=== PATIENT | female | born 1955 | race African-American/Black ===

== ENCOUNTER 2017-01-13 08:11 | Day surgery (SDC) | payer OTHER ==
[2017-01-13] MEDS ORDERED: Sodium Chloride 0.9% 20 ML ONE (08:47)
[2017-01-13] MEDS ORDERED: Acetaminophen 500 MG TAB PO SCH (09:00)
[2017-01-13] MEDS ORDERED: diphenhydrAMINE 25 MG CAP PO SCH (09:00)
[2017-01-13] MEDS ORDERED: ADMIXTURE FEE IVPB SCH (09:15)
[2017-01-13] MEDS ORDERED: INFLIXIMAB IVPB SCH (09:15)
[2017-01-13] MEDS ORDERED: SODIUM CHLORIDE IVPB SCH (09:15)
[2017-01-13 09:37] VITALS: BP 139/94
== END 2017-01-13 12:22 | disposition home or self-care (01) ==
LOC: ONC/OP 08:11
PROVIDERS: ATTEND Internal Medicine Gastroenterology
DX: K50.90 Crohn's disease, unspecified, without complications (principal); I11.0 Hypertensive heart disease with heart failure; I50.32 Chronic diastolic (congestive) heart failure; I25.10 Atherosclerotic heart disease of native coronary artery without angina pectoris; E11.40 Type 2 diabetes mellitus with diabetic neuropathy, unspecified; F31.9 Bipolar disorder, unspecified; E78.5 Hyperlipidemia, unspecified; F17.210 Nicotine dependence, cigarettes, uncomplicated; Z79.4 Long term (current) use of insulin; Z79.899 Other long term (current) drug therapy; Z90.49 Acquired absence of other specified parts of digestive tract; Z90.710 Acquired absence of both cervix and uterus; Z98.890 Other specified postprocedural states; Z86.73 Personal history of transient ischemic attack (TIA), and cerebral infarction without residual deficits; Z81.8 Family history of other mental and behavioral disorders
CPT/HCPCS: 96413; 96415; A4216; J1642; J1745; J7050

== ENCOUNTER 2017-03-10 08:49 | Day surgery (SDC) | payer OTHER ==
[2017-03-10] MEDS ORDERED: Sodium Chloride 0.9% 20 ML ONE (09:04)
[2017-03-10] MEDS ORDERED: diphenhydrAMINE 25 MG CAP PO SCH (10:00)
[2017-03-10] MEDS ORDERED: Acetaminophen 500 MG TAB PO SCH (10:00)
[2017-03-10] MEDS ORDERED: SODIUM CHLORIDE 0.9% IVPB SCH ×3 (10:15→10:30)
[2017-03-10] MEDS ORDERED: INFLIXIMAB IVPB SCH ×3 (10:15→10:30)
[2017-03-10 11:06] VITALS: BP 125/82; TEMP 97.8
== END 2017-03-10 13:37 | disposition home or self-care (01) ==
LOC: ONC/OP 08:49
PROVIDERS: ATTEND Internal Medicine Gastroenterology
DX: K51.90 Ulcerative colitis, unspecified, without complications (principal); I11.0 Hypertensive heart disease with heart failure; I50.30 Unspecified diastolic (congestive) heart failure; F31.9 Bipolar disorder, unspecified; E11.9 Type 2 diabetes mellitus without complications; E78.5 Hyperlipidemia, unspecified; Z79.4 Long term (current) use of insulin
CPT/HCPCS: 96413; 96415; A4216; J1642; J1745; J7050

== ENCOUNTER 2017-05-12 08:09 | Day surgery (SDC) | payer OTHER ==
[2017-05-12] MEDS ORDERED: Sodium Chloride 0.9% 1,000 ML IV SCH (08:30)
[2017-05-12] MEDS ORDERED: Acetaminophen 500 MG TAB PO PRN (08:37)
[2017-05-12] MEDS ORDERED: diphenhydrAMINE 50 MG/ML VIAL IVPB PRN (08:37)
[2017-05-12] MEDS ORDERED: INFLIXIMAB-DYYB 800 MG in Sodium Chloride 0.9% 250 ML 250 ML IV SCH (08:45)
[2017-05-12] MEDS ORDERED: diphenhydrAMINE 25 MG CAP PO SCH (08:45)
[2017-05-12] MEDS ORDERED: PRE FILLED IVPB SCH (08:45)
[2017-05-12] MEDS ORDERED: diphenhydrAMINE 50 MG/ML VIAL IVP SCH (08:45)
[2017-05-12] MEDS ORDERED: ACETAMINOPHEN IVPB SCH (08:45)
[2017-05-12] MEDS ORDERED: SODIUM CHLORIDE 0.9% IV SCH (09:00)
[2017-05-12] MEDS ORDERED: INFLIXIMAB DYYB IV SCH (09:00)
[2017-05-12] MEDS ORDERED: Sodium Chloride 0.9% 20 ML ONE (09:01)
[2017-05-12 09:39] VITALS: BP 133/79; TEMP 98.9
== END 2017-05-12 12:38 | disposition home or self-care (01) ==
LOC: ONC/OP 08:09
PROVIDERS: ATTEND Internal Medicine Gastroenterology
DX: K50.90 Crohn's disease, unspecified, without complications (principal); E78.5 Hyperlipidemia, unspecified; I11.0 Hypertensive heart disease with heart failure; I50.32 Chronic diastolic (congestive) heart failure; I25.10 Atherosclerotic heart disease of native coronary artery without angina pectoris; E11.40 Type 2 diabetes mellitus with diabetic neuropathy, unspecified; Z79.4 Long term (current) use of insulin; Z79.899 Other long term (current) drug therapy; Z86.73 Personal history of transient ischemic attack (TIA), and cerebral infarction without residual deficits
CPT/HCPCS: 96413; 96415; A4216; J1642; J1745; J7050

== ENCOUNTER 2017-06-25 06:40 | Outpatient (CLI) | payer OTHER | END 2017-06-25 06:41 | disposition home or self-care (01) | LOC: BICULT 06:40 | PROVIDERS: ATTEND Family Medicine | DX: M79.604 Pain in right leg (principal) ==

== ENCOUNTER 2017-06-29 15:51 | Outpatient (CLI) | payer OTHER | END 2017-06-29 15:52 | disposition home or self-care (01) | LOC: BICRAD 15:51 | PROVIDERS: ATTEND Family Medicine | DX: K59.09 Other constipation (principal); K59.8 Other specified functional intestinal disorders; I51.7 Cardiomegaly | CPT/HCPCS: 74019 ==

== ENCOUNTER 2017-06-29 21:45 | Emergency (ER) | payer OTHER | END 2017-06-29 23:29 | disposition left against medical advice (07) | LOC: ERS 21:45 | DX: Z53.21 Procedure and treatment not carried out due to patient leaving prior to being seen by health care provider (principal) ==

== ENCOUNTER 2017-07-07 08:32 | Day surgery (SDC) | payer OTHER ==
[2017-07-07] MEDS ORDERED: Sodium Chloride 0.9% 40 ML ONE (08:46)
[2017-07-07] MEDS ORDERED: diphenhydrAMINE 50 MG/ML VIAL IVP PRN (09:08)
[2017-07-07] MEDS ORDERED: Acetaminophen 500 MG TAB PO PRN (09:08)
[2017-07-07] MEDS ORDERED: INFLIXIMAB DYYB IVPB SCH ×2 (09:15→09:30)
[2017-07-07] MEDS ORDERED: Acetaminophen 500 MG TAB PO SCH (09:15)
[2017-07-07] MEDS ORDERED: diphenhydrAMINE 50 MG/ML VIAL IVP SCH (09:15)
[2017-07-07] MEDS ORDERED: ADMIXTURE FEE IVPB SCH ×2 (09:15→09:30)
[2017-07-07] MEDS ORDERED: diphenhydrAMINE 25 MG CAP PO SCH (09:15)
[2017-07-07] MEDS ORDERED: SODIUM CHLORIDE IVPB SCH ×2 (09:15→09:30)
[2017-07-07] MEDS ORDERED: Sodium Chloride 0.9% 1,000 ML IV SCH (09:15)
[2017-07-07] MEDS ORDERED: INFLIXIMAB DYYB IV SCH (09:30)
[2017-07-07] MEDS ORDERED: SODIUM CHLORIDE 0.9% IV SCH (09:30)
[2017-07-07 09:34] VITALS: BP 153/96; TEMP 99
== END 2017-07-07 13:37 | disposition home or self-care (01) ==
LOC: ONC/OP 08:32
PROVIDERS: ATTEND Internal Medicine Gastroenterology
DX: K50.90 Crohn's disease, unspecified, without complications (principal); E78.5 Hyperlipidemia, unspecified; I11.0 Hypertensive heart disease with heart failure; I50.32 Chronic diastolic (congestive) heart failure; I25.10 Atherosclerotic heart disease of native coronary artery without angina pectoris; E11.40 Type 2 diabetes mellitus with diabetic neuropathy, unspecified; Z79.4 Long term (current) use of insulin; Z79.899 Other long term (current) drug therapy; Z86.73 Personal history of transient ischemic attack (TIA), and cerebral infarction without residual deficits
CPT/HCPCS: 96413; 96415; A4216; J1642; J7050; Q5103

== ENCOUNTER 2017-07-08 16:29 | Day surgery (SDC) | payer OTHER ==
[2017-07-07 13:44] VITALS: BMI 37.6
[~2017-07-08 16:29] MED LIST: Dexamethasone 20 MG/5 ML VIAL ONE; Lidocaine 1% PF 5 ML VIAL ONE; PROPOFOL 200 MG/20 ML VIAL ONE
[2017-07-08 17:28] LABS: #Basophils 0.1 thou/uL (0.0-0.2); #Eosinphils 0.2 thou/uL (0.0-0.7); #Monocytes 0.6 thou/uL (0.11-0.59); #Neutrophils 1.9 thou/uL (1.40-6.50); %Basophils 1.6 % (0.0-1.0); %Eosinophils 4.2 % (0.0-10.0); %Lymphocytes 41.7 % (21.0-51.0); %Monocytes 12.3 % (0.0-10.0); %Neutrophils 40.2 % (42.0-75.0); Mean Corpuscular HGB CONC 33.3 g/dL (32.0-36.0); Mean Corpuscular Hemoglobin 29.9 pg (27.0-31.0); Mean Corpuscular Volume 89.8 fl (81.0-99.0); Mean Platelet Volume 7.2 fL (7.4-10.4); Platelet Count 286 thou/uL (130-400); RBC Distribution Width 15.3 % (11.5-14.5); Red Blood Cell (RBC) Count 4.02 mill/uL (4.20-5.40); White Blood Cell (WBC) Count 4.7 thou/uL (4.8-10.8)
[2017-07-08 17:46] LABS: Anion Gap 11 mmol/L (10-20); BUN (Urea Nitrogen) 33 mg/dL (9.8-20.1); Calc. Creatinine Clearance 47 mL/min (70-130); Calcium 9.1 mg/dL (7.8-10.44); Carbon Dioxide 24 mmol/L (23-31); Chloride 107 mmol/L (98-107); Estimated GFR-MDRD 34; Glucose 89 mg/dL (80-115); Potassium 4.1 mmol/L (3.5-5.1); Sodium 138 mmol/L (136-145)
[2017-07-08] MEDS ORDERED: Thrombin 5000 UNITS/5 ML VIAL ONE (19:16)
[2017-07-08] MEDS ORDERED: Sodium Chloride 0.9% 0 ML ONE (19:16)
[2017-07-08] MEDS ORDERED: Bupivacaine PF 0.5% 30 ML VIAL ONE (19:16)
[2017-07-08] MEDS ORDERED: Lidocaine 1% (PF) 30 ML VIAL ONE (19:16)
[2017-07-08] MEDS ORDERED: Bacitracin Zinc Ointment 30 gm TUBE ONE (19:16)
[2017-07-08] MEDS ORDERED: Fentanyl 100 MCG/2 ML VIAL ONE ×2 (20:26→21:42)
[2017-07-08] MEDS ORDERED: Vancomycin HCl 1.5 GM in Sodium Chloride 0.9% 250 ML 300 ML IVPB SCH (20:45)
[2017-07-08] MEDS ORDERED: Heparin 10,000 UNITS/ 10 ML VIAL ONE (22:02)
--- NOTE | 2017-07-09 04:36 | OP ---
DATE OF PROCEDURE: 07/08/2017 PREOPERATIVE DIAGNOSES: 1. Mass with abscess in right long finger . 2. Right ulnar aspect ingrown nail. 3. Mass with abscess in right long finger. 4. No gross evidence of bony infection. PROCEDURES PERFORMED: 1. Nail removal. 2. Bone biopsy ulnar aspect distal phalanx underneath the mass and in the midst of some mucopurulent fat. 3. Mass excision with drainage (keratotic 5 x 2 mm mass just ulnar to the paronychial region). SPECIMENS REMOVED: 1. Bone biopsy for culture. 2. Mass with underlying infection for specimen. 3. Fat, subcutaneous pulp mucous area, right long finger for culture. BLOOD LOSS: 5 mL. TOURNIQUET TIME: 12 minutes. INDICATION: The patient with subcutaneous over 1 month nail pain with a hypertrophic keratotic lesio n 5 x 2 mm, underneath this some fluctuance and some edema around her nail bed area. Not responded t o any kind of treatment and the patient was able to obtain MRI, so, we felt the best method to contro l this and determine the final treatment as well as possibly be a diagnostic and therapeutic would be to do an open procedure listed above. The patient also has very brittle diabetes and multiple medic al problems. DESCRIPTION OF PROCEDURE: After successful general endotracheal anesthesia, limb was prepped and dr walden. The patient had time-out done appropriately. We gave 2 mL of 0.5% Marcaine block at metacarpo phalangeal block level in right long finger after we identified the site, side, and finger. We then inflated the tourniquet after exsanguinating the limb to 250 mmHg pressure and at the right l екатерина finger, we removed the nail. There was no purulence under the nail, but the nail itself tracked down underneath and was ingrown. We went then directly lateral to this spot on the ulnar aspect and we found the 5 mm hypertrophic area, excised this completely leaving a 4 mm wide rim of soft tissue a round the nail and then from here. Once this was removed, we dissected down to bone and found some m ucous filled fat in the pulp consistent with possible chronic infection. Deep to this, we took a bon e biopsy. We irrigated the the pulp space with 200 mL normal saline using a 10 mL syringe and a 16-gauge Angioc ath. Then, we released the tourniquet. Hemostasis was obtained. Specimen sent included now a bone biopsy for culture, mass with underlying infection that was hyperkeratotic for specimen and the subcu taneous area in right long finger for culture. The incision had been 15 mm long. We closed the 5 mm from each end and left the 5 mm area of open wo und and packed this with appropriate sterile gauze. We placed bacitracin and Adaptic over the nail b ed area, covered it with a bulky dressing, loosely applied Valeriy type and then covered this with a ba nd around the wrist, so it would not fall off. She left the operating room without evidence of anest hetic or operative complications.
--- NOTE | 2017-07-09 16:18 | EKG ---
Test Reason : STAT Blood Pressure : / mmHG Vent. Rate : 079 BPM Atrial Rate : 079 BPM P-R Int : 168 ms QRS Dur : 092 ms QT Int : 448 ms P-R-T Axes : 062 032 052 degrees QTc Int : 513 ms Normal sinus rhythm Prolonged QT Abnormal ECG Confirmed by ARCELIA GASCA ([id number]) on 07/09/2017 4:18:29 PM Referred By: BERNY Confirmed By:ARCELIA GASCA
== END 2017-07-08 23:00 | disposition home or self-care (01) ==
LOC: SDC 16:29
PROVIDERS: ATTEND Orthopaedic Surgery Hand Surgery
PROC: 0HTQXZZ Resection of Finger Nail, External Approach (ICD-10-PCS; principal; 2017-07-08)
PROC: 0PBT0ZX Excision of Right Finger Phalanx, Open Approach, Diagnostic (ICD-10-PCS; principal; 2017-07-08)
PROC: 0H9FXZZ Drainage of Right Hand Skin, External Approach (ICD-10-PCS; principal; 2017-07-08)
DX: L02.511 Cutaneous abscess of right hand (principal); L60.0 Ingrowing nail; I10 Essential (primary) hypertension; E78.5 Hyperlipidemia, unspecified; F32.9 Major depressive disorder, single episode, unspecified; K50.90 Crohn's disease, unspecified, without complications; G43.909 Migraine, unspecified, not intractable, without status migrainosus; G89.29 Other chronic pain; E11.51 Type 2 diabetes mellitus with diabetic peripheral angiopathy without gangrene; G47.33 Obstructive sleep apnea (adult) (pediatric); K21.9 Gastro-esophageal reflux disease without esophagitis; Z79.4 Long term (current) use of insulin; Z79.899 Other long term (current) drug therapy; Z87.891 Personal history of nicotine dependence
CPT/HCPCS: 80048; 85025; 85652; 87070; 87186; 87205; 88305; 93005; 93010; 96374; A4216; J1100; J1642; J1644; J2001; J2704; J3010; J3370; J3490; J7050; S0020

== ENCOUNTER 2017-08-11 18:06 | Emergency (ER) | payer OTHER ==
[2017-08-11] MEDS ORDERED: HYDROcodone/Acetaminophen 5/325 mg Tablet ONE (19:00)
--- NOTE | 2017-08-11 19:35 | RAD ---
THREE VIEWS OF THE LEFT ANKLE: 08/11/17 COMPARISON: None. HISTORY: Fall with left ankle pain and swelling. FINDINGS: Three views of the left ankle shows no evidence of acute fracture or dislocation. Moderate diffuse so ft tissue swelling is seen. No degenerative changes are present. IMPRESSION: No evidence of acute osseous abnormality. POS: [facility]
[2017-08-11] MEDS ORDERED: cloNIDine 0.1 MG TAB ONE (20:39)
--- NOTE | 2017-08-11 21:03 | RAD ---
TWO VIEWS OF THE LEFT TIBIA AND FIBULA: 08/11/17 COMPARISON: None. HISTORY: Fell in bathtub with left leg edema and pain. FINDINGS: Two views of the left tibia/fibula shows no evidence of acute fracture or dislocation. Moderate diffu se soft tissue swelling is seen. No degenerative changes are present. IMPRESSION: No evidence of acute osseous abnormality. POS: [facility]
--- NOTE | 2017-08-11 21:36 | ULT ---
LEFT LOWER EXTREMITY VENOUS ULTRASOUND 08/11/17 COMPARISON: None. HISTORY: Left lower extremity pain and edema. Left ankle pain after falling in the bathtub. TECHNIQUE: Multiplanar jerome scale and color doppler images were obtained in a left lower extremity venous ultras ound. Spectral analysis of the doppler waveforms were performed. FINDINGS: The left common femoral vein, profunda femoral vein, superficial femoral vein, and popliteal vein are normal in appearance without visible thrombus. These vessels demonstrate normal compression, flow, a nd augmentation. The left posterior tibial vein and greater saphenous vein are also patent. IMPRESSION: No evidence of left lower extremity DVT. POS: [facility]
== END 2017-08-11 21:25 | disposition home or self-care (01) ==
LOC: ERS 18:06
DX: M79.662 Pain in left lower leg (principal); I10 Essential (primary) hypertension; E11.9 Type 2 diabetes mellitus without complications; G47.30 Sleep apnea, unspecified; K21.9 Gastro-esophageal reflux disease without esophagitis; F31.9 Bipolar disorder, unspecified; F17.210 Nicotine dependence, cigarettes, uncomplicated; Z79.899 Other long term (current) drug therapy

== ENCOUNTER 2017-08-19 18:23 | Inpatient (IN) | payer OTHER ==
[2017-08-19] MEDS ORDERED: Morphine 10 MG/ML VIAL ONE (20:00)
[2017-08-19] MEDS ORDERED: Lidocaine 1% w/Epinephrine 1:100K 20 ML VIAL ONE (20:00)
--- NOTE | 2017-08-19 20:04 | ULT ---
LEFT LOWER EXTREMITY VENOUS ULTRASOUND WITH DOPPLER: 08/19/17 HISTORY: Patient fell and has had edema since then. COMPARISON: 08/11/17. TECHNIQUE: Talbot scale, color flow, doppler imaging with spectral waveform analysis performed in the left lower e xtremity venous system. FINDINGS: There is compressibility, presence of flow and augmentation in the common femoral vein, femoral vein, and popliteal vein. There is flow in the greater saphenous vein, profunda vein and posterior tibial vein. On the anterior aspect of the palmer there is a complex hypoechoic areas measuring 4.3 cm in maximum di mension which may represent fluid collection or resolving hematoma. There is no vascular flow. IMPRESSION: 1. No evidence of thrombus in the left lower extremity deep venous system. 2. Resolving hematoma versus fluid collection in the anterior left lower extremity soft tissues. POS: [facility]
[2017-08-19 20:09] LABS: #Basophils 0.1 thou/uL (0.0-0.2); #Eosinphils 0.2 thou/uL (0.0-0.7); #Lymphocytes 2.7 thou/uL (1.20-3.40); #Monocytes 0.9 thou/uL (0.11-0.59); #Neutrophils 3.9 thou/uL (1.40-6.50); %Basophils 1.1 % (0.0-1.0); %Eosinophils 2.5 % (0.0-10.0); %Lymphocytes 34.4 % (21.0-51.0); %Monocytes 11.4 % (0.0-10.0); %Neutrophils 50.6 % (42.0-75.0); Hemoglobin 11.8 g/dL (12.0-16.0); Mean Corpuscular HGB CONC 34.5 g/dL (32.0-36.0); Mean Corpuscular Hemoglobin 31.2 pg (27.0-31.0); Mean Corpuscular Volume 90.3 fl (81.0-99.0); Mean Platelet Volume 6.4 fL (7.4-10.4); Platelet Count 335 thou/uL (130-400); RBC Distribution Width 16.5 % (11.5-14.5); Red Blood Cell (RBC) Count 3.77 mill/uL (4.20-5.40); White Blood Cell (WBC) Count 7.7 thou/uL (4.8-10.8)
[2017-08-19 20:28] LABS: ALT (SGPT) 13 U/L (8-55); AST (SGOT) 27 U/L (5-34); Albumin 3.7 g/dL (3.4-4.8); Alkaline Phosphatase 174 U/L (40-150); Anion Gap 14 mmol/L (10-20); BUN (Urea Nitrogen) 16 mg/dL (9.8-20.1); Bilirubin, Total 0.2 mg/dL (0.2-1.2); CK (CPK) 459 U/L (29-168); Calc. Creatinine Clearance 0 mL/min (70-130); Calcium 8.6 mg/dL (7.8-10.44); Carbon Dioxide 25 mmol/L (23-31); Chloride 109 mmol/L (98-107); Estimated GFR-MDRD 33; Glucose 106 mg/dL (80-115); Potassium 3.1 mmol/L (3.5-5.1); Protein, Total 7.7 g/dL (6.0-8.3); Sodium 145 mmol/L (136-145)
[2017-08-19] MEDS ORDERED: hydrALAZINE 20 MG/ML VIAL ONE (20:55)
[2017-08-19 23:22] VITALS: BMI 38.2
[2017-08-20] MEDS ORDERED: hydrALAZINE 20 MG/ML VIAL SLOW IVP PRN (00:03)
[2017-08-20] MEDS: traMADol HCl 50 MG TAB PO PRN (02:10)
[2017-08-20] MEDS ORDERED: Doxepin HCl 25 MG CAP PO SCH (02:30)
[2017-08-20] MEDS ORDERED: Ondansetron HCl/PF 4 MG/2 ML Vial IVP PRN (02:33)
[2017-08-20] MEDS ORDERED: Acetaminophen 325 MG TAB PO PRN (02:33)
[2017-08-20 03:04] LABS: #Basophils 0.1 thou/uL (0.0-0.2); #Eosinphils 0.2 thou/uL (0.0-0.7); #Lymphocytes 2.2 thou/uL (1.20-3.40); #Monocytes 0.8 thou/uL (0.11-0.59); #Neutrophils 4.2 thou/uL (1.40-6.50); %Basophils 0.9 % (0.0-1.0); %Eosinophils 2.9 % (0.0-10.0); %Lymphocytes 29.7 % (21.0-51.0); %Monocytes 10.4 % (0.0-10.0); Hemoglobin 11.7 g/dL (12.0-16.0); Mean Corpuscular HGB CONC 34.2 g/dL (32.0-36.0); Mean Corpuscular Hemoglobin 31.2 pg (27.0-31.0); Mean Corpuscular Volume 91.3 fl (81.0-99.0); Mean Platelet Volume 6.8 fL (7.4-10.4); Platelet Count 341 thou/uL (130-400); RBC Distribution Width 16.8 % (11.5-14.5); Red Blood Cell (RBC) Count 3.73 mill/uL (4.20-5.40); White Blood Cell (WBC) Count 7.5 thou/uL (4.8-10.8)
[2017-08-20 03:11] LABS: Hemoglobin A1c 6.2 % (4.0-6.0)
[2017-08-20 03:33] LABS: Anion Gap 16 mmol/L (10-20); BUN (Urea Nitrogen) 14 mg/dL (9.8-20.1); Calc. Creatinine Clearance 55 mL/min (70-130); Calcium 8.6 mg/dL (7.8-10.44); Carbon Dioxide 20 mmol/L (23-31); Chloride 110 mmol/L (98-107); Estimated GFR-MDRD 40; Glucose 151 mg/dL (80-115); Sodium 143 mmol/L (136-145)
--- NOTE | 2017-08-20 04:30 | HP ---
PRIMARY CARE PHYSICIAN: Dr. Crys Andrade. CHIEF COMPLAINT: Left ankle pain. HISTORY OF PRESENT ILLNESS: This is a 61-year-old female with a known history of type 1 insulin-depe ndent diabetes, hypertension, bipolar disease, Crohn's disease on Remicade, who presents with a chief complaint of left lower foot, ankle swelling. Patient states that approximately 2 weeks ago on 07/15, she fell and "hit her foot". She subsequently had some localized swelling was seen on an out patient basis where imaging was completed and did not demonstrate any evidence of fracture. Unfortun ately, she had progressive swelling and revisited the ER with worsening complaints. Again, imaging w as repeated without any evidence of fracture. Patient denies any recent antibiotics during this time frame. Patient denies any prior similar episodes. REVIEW OF SYSTEMS: As per HPI. Constitutional: No fevers, no chills, no significant weight loss or gain in the last month. HEENT: No new headaches, vision changes, lightheadedness, or dizziness. C ardiovascular: No chest pain, chest pressure. No left-sided arm numbness or tingling. Respiratory: No wheezes, no rhonchi. No congestion or cough. Gastrointestinal: No nausea, no vomiting, no abd ominal pain, no issues with diarrhea or constipation. Genitourinary: No issues with dysuria, change in urinary frequency, quality or quantity. Musculoskeletal: No new myalgias or arthralgias. Remai nder of the review of systems otherwise negative. PAST MEDICAL AND SURGICAL HISTORY: As per HPI, includes the following, 1. Insulin-dependent diabetes. 2. Hypertension. 3. Hyperlipidemia. 4. Prior history of TIA 5. Bipolar disease and depression. 6. Crohn's disease on Remicade for last 10 years. 7. Chronic pain. 8. Peripheral vascular disease. 9. Obstructive sleep apnea. 10. Gastroesophageal reflux disease. 11. Chronic constipation. 12. Tobacco abuse. 13. Status post cholecystectomy. 14. Status post hysterectomy. 15. Status post left heart catheterization in 2011. 16. Status post cystoscopy. 17. Status post appendectomy. 18. Status post EGD. 19. Status post "small intestine blockage removal" in 2017. HOME MEDICATIONS: As per EMR, patient's home regimen appears to currently include the following: Re micade 100 mg IV q.8 weeks, lurasidone 40 mg p.o. at bedtime, Levemir 12 units subcutaneously b.i.d., lubiprostone 24 mcg p.o. b.i.d., clonidine 0.3 mg p.o. b.i.d., doxepin 100 mg p.o. at bedtime, atorv astatin 40 mg p.o. daily, brexpiprazole 2 mg p.o. daily, gabapentin 300 mg p.o. at bedtime, fluoxetin e 20 mg p.o. daily, quetiapine 400 mg p.o. at bedtime, esomeprazole 40 mg p.o. q.a.m., tramadol 50 mg p.o. q.4 hours p.r.n., losartan 100 mg p.o. daily, potassium 10 mEq p.o. daily, torsemide 100 mg p.o . daily. ALLERGIES: No known drug allergies. FAMILY HISTORY: Patient denies any family history of recurrent infections. SOCIAL HISTORY: Patient wishes to be FULL CODE at this point in time. Denies any active alcohol or illicit drug use, tobacco use, half a pack a day. Patient lives at home with family, has a "Houstonia d og" at home. She states does not have a habit of licking family members including herself. PHYSICAL EXAMINATION: GENERAL: The patient is awake, alert, appropriate, in no acute distress, lying in the hospital bed. HEENT: Normocephalic, atraumatic. Extraocular motions are intact. Moist mucous membranes. CARDIOVASCULAR: S1, S2. Soft heart tones. No murmurs, rubs, or gallops. Pulses 2+ bilateral upper extremities, trace lower extremity edema of the right lower extremity, left lower extremity with swe lling and edematous 2-3+. RESPIRATORY: Reasonable air movement. No wheezes, rales, or rhonchi. Clear to auscultation bilater ally. ABDOMEN: Positive bowel sounds. Large, obese, soft, nontender to palpation. MUSCULOSKELETAL: Able to move all 4 extremities, significant amount of swelling, erythema, and tende rness to palpation of the left lower extremity with some mild warmth as well. LABORATORY DATA AND IMAGING: On 08/19/2017, vascular ultrasound. Impression: "No evidence of throm bus in the left lower extremity deep venous system. Resolving hematoma versus fluid collection in th e anterior left lower extremity soft tissues." WBC 7.7, hemoglobin 11.8, hematocrit 34.0, platelets 335. Sodium 145, potassium 3.1, chloride 109, b icarbonate 25, BUN 16, creatinine 1.87, glucose 106, calcium 8.6. Total bilirubin 0.2, AST 27, ALT 1 3, alkaline phosphatase 174. Creatine kinase 459. CRP is 1.55. ASSESSMENT AND PLAN: A 61-year-old female who presents with left lower extremity swelling. 1. Left lower extremity swelling on physical examination by history, most consistent with cellulitis . It appears that in the emergency department, patient had an I&D done with a drainage of a foul sme lling hematoma. Hopefully, this will have cultures pending. In the meantime, given the patient's im munosuppressed state with chronic Remicade usage in her type 1 diabetes, we will cover with Zosyn and vancomycin for consideration of methicillin-resistant Staphylococcus aureus. In addition, patient a lso has zoonotic infection, specifically those cannot related a consideration. Patient currently is not having systemic inflammatory response syndrome or sepsis otherwise, we will hold off and obtainin g blood cultures. Close monitoring of the patient's infected area, there is a concern or considerati on that there is no improvement. Low threshold for imaging to rule out for abscess complication. 2. Insulin-dependent diabetes, continue patient on home regimen. Close monitoring. Anticipate eder ent could have a component of either hyper or hypoglycemia secondary to acute infection as noted abov e. We will continue with antibiotics as per above as well. 3. Bipolar disease, stable. 4. Hypertension, stable. RESTRICTIONS: 1. As tolerated. 2. Activity: As tolerated. 3. Deep venous thrombosis prophylaxis with heparin. 4. Unknown if patient has chronic renal disease, I do not see this listed. I do not see a baseline creatinine for the patient has either with elevated creatinine of 1.87. Continue to closely monitor patient's urine output and renal function with serial BMP. Thank you for asking me to care for the patient. Questions or concerns, contact me at [facility].
[2017-08-20] MEDS: Piperacillin/Tazobactam 2.25 GM in Sodium Chloride 0.9% 100 ML IVPB SCH ×3 (05:26→17:27)
[2017-08-20] MEDS ORDERED: Vancomycin HCl 1 GM in Premix Bag 1 BAG IVPB SCH (08:00)
[2017-08-20] MEDS: Potassium Chloride 10 MEQ TAB PO SCH (08:06)
[2017-08-20] MEDS: Atorvastatin Calcium 40 MG TAB PO SCH (08:06)
[2017-08-20] MEDS: FLUoxetine HCl 20 MG CAP PO SCH (08:06)
[2017-08-20] MEDS: Lubiprostone 24 MCG CAP PO SCH ×2 (08:07→16:04)
[2017-08-20] MEDS: Losartan 25 MG TAB PO SCH (08:07)
[2017-08-20] MEDS: cloNIDine 0.3 MG TAB PO SCH ×2 (08:07→21:18)
[2017-08-20] MEDS: Torsemide 100 MG TAB PO SCH (08:08)
[2017-08-20] MEDS: HYDROcodone/Acetaminophen 5/325 mg Tablet PO PRN ×2 (08:16→18:14)
[2017-08-20] MEDS: Heparin 5,000 UNITS/ML VIAL SC SCH ×3 (08:43→21:18)
[2017-08-20] MEDS: Insulin Glargine 12 UNITS in Pre-Filled Syringe 1 EACH SC SCH ×2 (08:44→20:23)
[2017-08-20] MEDS ORDERED: Non-Formulary Item 1 EACH (Levemir Flexpen [Levemir Flexpen] 12 UNIT) SC SCH (09:00)
[2017-08-20] MEDS: Morphine 4 MG/ML VIAL SLOW IVP PRN ×3 (10:36→20:21)
--- NOTE | 2017-08-20 11:47 | PDOC.PN ---
- Subjective Encounter Start Date: 08/20/17 Encounter Start Time: 11:15 Subjective: c/o pain and swelling of left leg area -: pain is worse on amb and wtg bearing -: no chest pain or sob, at bedside - Objective Resuscitation Status: Resuscitation Status FULL:Full Resuscitation MAR Reviewed: Yes Vital Signs & Weight: Vital Signs (12 hours) Temp Pulse Resp BP BP Pulse Ox 08/20/17 09:45 156/82 H 08/20/17 08:07 179/90 H 08/20/17 08:00 98.0 F 124 H 16 185/97 H 96 08/20/17 07:39 98.4 F 123 H 17 08/20/17 03:54 98.4 F 123 H 17 138/96 H 96 08/20/17 02:12 179/90 H 08/20/17 00:34 116 H 226/114 H 08/20/17 00:20 98.4 F 116 H 18 08/20/17 00:11 116 H 226/114 H Weight Weight 209 lb 3 oz I&O: 08/19/17 08/20/17 08/21/17 06:59 06:59 06:59 Intake Total 460 Output Total 500 Balance -40 Result Diagrams: 08/20/17 02:53 08/20/17 02:53 Additional Labs: Accuchecks 08/20/17 08/19/17 08:23 23:17 POC Glucose 126 H 130 H Phys Exam - Physical Examination HEENT: PERRLA, moist MMs Neck: no JVD, supple Respiratory: no wheezing, no rales Cardiovascular: RRR, no significant murmur Gastrointestinal: soft, non-tender, positive bowel sounds Musculoskeletal: pulses present left leg has erythema and edema, no drainage from I&D site, is tender Neurological: non-focal, moves all 4 limbs Psychiatric: normal affect, A&O x 3 Dx/Plan (1) Left leg cellulitis Code(s): L03.116 - CELLULITIS OF LEFT LOWER LIMB Status: Acute (2) Hypertension Code(s): I10 - ESSENTIAL (PRIMARY) HYPERTENSION Status: Chronic Qualifiers: Hypertension type: essential hypertension Qualified Code(s): I10 - Essential (primary) hypertension (3) Bipolar disorder Code(s): F31.9 - BIPOLAR DISORDER, UNSPECIFIED Status: Chronic Qualifiers: Active/Remission status: remission status unspecified Qualified Code(s): F31.9 - Bipolar disorder, unspecified Comment: Continue home medication regimen (4) CAD (coronary artery disease) Code(s): I25.10 - ATHSCL HEART DISEASE OF [place] CORONARY ARTERY W/O ANG PCTRS Status: Chronic Qualifiers: Coronary Disease-Associated Artery/Lesion type: [place] artery [place] vs. transplanted heart: [place] heart Associated angina: without angina Qualified Code(s): I25.10 - Atherosclerotic heart disease of [place] coronary artery without angina pectoris (5) Crohns disease Code(s): K50.90 - CROHN'S DISEASE, UNSPECIFIED, WITHOUT COMPLICATIONS Status: Chronic Qualifiers: Gastrointestinal tract location: unspecified location Digestive disease complication type: unspecified complication Qualified Code(s): K50.919 - Crohn 's disease, unspecified, with unspecified complications Comment: on remicaid infusion [id number] (6) DM type 2 (diabetes mellitus, type 2) Status: Chronic Qualifiers: Diabetes mellitus alf insulin use: with alf use Diabetes mellitus complication status: with kidney complications Diabetes mellitus complication detail: with chronic kidney disease Chronic kidney disease stage : stage 3 (moderate) Qualified Code(s): E11.22 - Type 2 diabetes mellitus with diabetic chronic kidney disease; N18.3 - Chronic kidney disease, stage 3 ( moderate); N18.3 - Chronic kidney disease, stage 3 (moderate); Z79.4 - penitentiary (current) use of insulin; Z79.4 - buttermaker continuous churn (current) use of insulin; Z79.4 - penitentiary (current) use of insulin; Z79.4 - buttermaker continuous churn (current) use of insulin (7) Obesity Code(s): E66.9 - OBESITY, UNSPECIFIED Status: Chronic Qualifiers: Obesity type: unspecified obesity type Obesity classification: adult class 2 (BMI 35 - 39.9) Body mass index: BMI 38.0-38.9 - Plan on vanc and zosyn -: await cultures if its taken at the time of I&D in ER? -: laci hose to left LE to reduce edema -: on cozaar, clonidine, lantus 12 u bid, lipitor, demadex -: seroquel, neurontin, doxepin and amitiza * . to ambulate as tolerated plan d/w pt and , will need 2 days of iv antibiotics to reduce erythema and edema of left leg, then oral antibiotics for home use. Pt is immunosuppressed with her being on remicaid. Review of Systems - Medications/Allergies Allergies/Adverse Reactions: Allergies Allergy/AdvReac Type Severity Reaction Status Date / Time No Known Drug Allergies Allergy Verified 08/19/17 23:42 Medications: Current Medications Acetaminophen (Tylenol) 650 mg PO Q4H PRN PRN Reason: Headache/Fever or Pain Hydrocodone Bitart/Acetaminophen ([place] 5/325) 1 tab PO Q4H PRN PRN Reason: Moderate Pain (4-6) Last Admin: 08/20/17 08:16 Dose: 1 tab Atorvastatin Calcium (Lipitor) 40 mg PO DAILY [facility] Last Admin: 08/20/17 08:06 Dose: 40 mg Clonidine (Catapres) 0.3 mg PO BID [facility] Last Admin: 08/20/17 08:07 Dose: 0.3 mg Doxepin HCl (Sinequan) 100 mg PO [facility] Fluoxetine HCl (Prozac) 20 mg PO DAILY [facility] Last Admin: 08/20/17 08:06 Dose: 20 mg Gabapentin (Neurontin) 300 mg PO [facility] Heparin Sodium (Porcine) (Heparin) 5,000 units SC TID [facility] Last Admin: 08/20/17 08:43 Dose: 5,000 units Insulin Glargine 12 units/ (Miscellaneous Medication) 0.12 mls @ 0 mls/hr SC BID [facility] PRN Reason: As Directed Last Admin: 08/20/17 08:44 Dose: 0.12 mls Piperacillin Sod/Tazobactam (Sod 2.25 gm/ Sodium Chloride) 100 mls @ 200 mls/ hr IVPB Q6HR [facility] Last Admin: 08/20/17 05:26 Dose: 100 mls Vancomycin HCl 1 gm/ Device 200 mls @ 200 mls/hr IVPB 2000 [facility] Losartan Potassium (Cozaar) 100 mg PO DAILY [facility] Last Admin: 08/20/17 08:07 Dose: 100 mg Lubiprostone (Amitiza) 24 mcg PO BID[facility] Last Admin: 08/20/17 08:07 Dose: 24 mcg Lurasidone HCl (Latuda) 40 mg PO [facility] Miscellaneous Medication (Pharmacy To Dose) 1 each IVPB ONE PRN PRN Reason: Pharmacy to dose Stop: 08/30/17 02:41 Miscellaneous Medication (Pharmacy To Dose) 1 each IVPB ONE PRN PRN Reason: Pharmacy to dose Stop: 08/30/17 02:42 Morphine Sulfate (Morphine) 2 mg SLOW IVP Q4H PRN PRN Reason: Chest Pain/BP Elevations Last Admin: 08/20/17 10:36 Dose: 2 mg Ondansetron HCl (Zofran) 4 mg IVP Q6H PRN PRN Reason: Nausea/Vomiting Pantoprazole Sodium (Protonix) 40 mg PO QAM [facility] Last Admin: 08/20/17 08:06 Dose: 40 mg Brexpiprazole [ (Rexulti] 2 Mg) 0 each PO DAILY [facility] Infliximab 100 Mg 0 each IV .[id number] [facility] Potassium Chloride (Klor-Con 10) 10 meq PO DAILY [facility] Last Admin: 08/20/17 08:06 Dose: 10 meq Quetiapine Fumarate (Seroquel) 400 mg PO HS [facility] Sodium Chloride (Flush - Normal Saline) 10 ml IVF PRN PRN PRN Reason: Saline Flush Last Admin: 08/20/17 00:34 Dose: 10 ml Torsemide (Demadex) 100 mg PO DAILY [facility] Last Admin: 08/20/17 08:08 Dose: 100 mg Tramadol HCl (Ultram) 50 mg PO Q4H PRN PRN Reason: Pain 4-6 Last Admin: 08/20/17 02:10 Dose: 50 mg
[2017-08-20] MEDS ORDERED: NIFEdipine XL 60 MG TAB PO SCH (17:15)
[2017-08-20] MEDS: Labetalol 100 MG TAB PO SCH (20:22)
[2017-08-20] MEDS: Gabapentin 300 MG CAP PO SCH (20:23)
[2017-08-20] MEDS: Vancomycin HCl 1 GM in Premix Bag 1 BAG IVPB SCH (20:23)
[2017-08-20] MEDS ORDERED: Lurasidone HCl 40 MG TABLET PO SCH (21:00)
[2017-08-20] MEDS: Doxepin HCl 25 MG CAP PO SCH (21:18)
[2017-08-21] MEDS: Piperacillin/Tazobactam 2.25 GM in Sodium Chloride 0.9% 100 ML IVPB SCH ×5 (00:02→23:34)
[2017-08-21] MEDS: Labetalol 100 MG TAB PO SCH ×2 (09:31→20:11)
[2017-08-21] MEDS: Insulin Glargine 12 UNITS in Pre-Filled Syringe 1 EACH SC SCH ×2 (09:31→20:12)
[2017-08-21] MEDS: cloNIDine 0.3 MG TAB PO SCH ×2 (09:33→20:12)
[2017-08-21] MEDS: Losartan 25 MG TAB PO SCH (09:33)
[2017-08-21] MEDS: Potassium Chloride 10 MEQ TAB PO SCH (09:33)
[2017-08-21] MEDS: FLUoxetine HCl 20 MG CAP PO SCH (09:33)
[2017-08-21] MEDS: Atorvastatin Calcium 40 MG TAB PO SCH (09:34)
[2017-08-21] MEDS: Lubiprostone 24 MCG CAP PO SCH ×2 (09:34→17:25)
[2017-08-21] MEDS: Heparin 5,000 UNITS/ML VIAL SC SCH ×3 (09:35→20:10)
[2017-08-21] MEDS: Torsemide 100 MG TAB PO SCH (09:37)
[2017-08-21] MEDS: Morphine 4 MG/ML VIAL SLOW IVP PRN ×2 (09:43→13:46)
--- NOTE | 2017-08-21 11:20 | PDOC.PN ---
- Subjective Encounter Start Date: 08/21/17 Encounter Start Time: 10:50 Subjective: pain and swelling in left leg is getting better -: slept well last night -: at bedside - Objective Resuscitation Status: Resuscitation Status FULL:Full Resuscitation MAR Reviewed: Yes Vital Signs & Weight: Vital Signs (12 hours) Temp Pulse Resp BP BP Pulse Ox 08/21/17 09:33 131/83 08/21/17 09:31 106 H 131/83 08/21/17 08:00 98.5 F 98 12 122/78 91 L Weight Admit Weight 209 lb 3 oz Weight 209 lb 3 oz I&O: 08/20/17 08/21/17 08/22/17 06:59 06:59 06:59 Intake Total 460 640 Output Total 500 Balance -40 640 Result Diagrams: 08/20/17 02:53 08/20/17 02:53 Additional Labs: Accuchecks 08/21/17 08/20/17 08/20/17 05:12 20:18 16:48 POC Glucose 129 H 139 H 150 H Phys Exam - Physical Examination HEENT: PERRLA, moist MMs Neck: no JVD, supple Respiratory: no wheezing, no rales Cardiovascular: RRR, no significant murmur Gastrointestinal: soft, non-tender, positive bowel sounds Musculoskeletal: pulses present left leg edema, erythema is receding Neurological: non-focal, moves all 4 limbs Psychiatric: normal affect, A&O x 3 Dx/Plan (1) Left leg cellulitis Code(s): L03.116 - CELLULITIS OF LEFT LOWER LIMB Status: Acute (2) Hypertension Code(s): I10 - ESSENTIAL (PRIMARY) HYPERTENSION Status: Chronic Qualifiers: Hypertension type: essential hypertension Qualified Code(s): I10 - Essential (primary) hypertension (3) Bipolar disorder Code(s): F31.9 - BIPOLAR DISORDER, UNSPECIFIED Status: Chronic Qualifiers: Active/Remission status: remission status unspecified Qualified Code(s): F31.9 - Bipolar disorder, unspecified Comment: Continue home medication regimen (4) CAD (coronary artery disease) Code(s): I25.10 - ATHSCL HEART DISEASE OF [place] CORONARY ARTERY W/O ANG PCTRS Status: Chronic Qualifiers: Coronary Disease-Associated Artery/Lesion type: [place] artery [place] vs. transplanted heart: [place] heart Associated angina: without angina Qualified Code(s): I25.10 - Atherosclerotic heart disease of [place] coronary artery without angina pectoris (5) Crohns disease Code(s): K50.90 - CROHN'S DISEASE, UNSPECIFIED, WITHOUT COMPLICATIONS Status: Chronic Qualifiers: Gastrointestinal tract location: unspecified location Digestive disease complication type: unspecified complication Qualified Code(s): K50.919 - Crohn 's disease, unspecified, with unspecified complications Comment: on remicaid infusion [id number] (6) DM type 2 (diabetes mellitus, type 2) Status: Chronic Qualifiers: Diabetes mellitus intermediate insulin use: with intermediate use Diabetes mellitus complication status: with kidney complications Diabetes mellitus complication detail: with chronic kidney disease Chronic kidney disease stage : stage 3 (moderate) Qualified Code(s): E11.22 - Type 2 diabetes mellitus with diabetic chronic kidney disease; N18.3 - Chronic kidney disease, stage 3 ( moderate); N18.3 - Chronic kidney disease, stage 3 (moderate); Z79.4 - senior living (current) use of insulin; Z79.4 - oysterman (current) use of insulin; Z79.4 - senior living (current) use of insulin; Z79.4 - oysterman (current) use of insulin (7) Obesity Code(s): E66.9 - OBESITY, UNSPECIFIED Status: Chronic Qualifiers: Obesity type: unspecified obesity type Obesity classification: adult class 2 (BMI 35 - 39.9) Body mass index: BMI 38.0-38.9 - Plan cellulitis is resolving -: on vanc and zosyn -: continue clonidine, labetalol, procardia, demadex and cozaar -: lantus 12 u bid -: to amb as tolerated, dc plan in am * . Review of Systems - Medications/Allergies Allergies/Adverse Reactions: Allergies Allergy/AdvReac Type Severity Reaction Status Date / Time No Known Drug Allergies Allergy Verified 08/19/17 23:42 Medications: Current Medications Acetaminophen (Tylenol) 650 mg PO Q4H PRN PRN Reason: Headache/Fever or Pain Hydrocodone Bitart/Acetaminophen ([place] 5/325) 1 tab PO Q4H PRN PRN Reason: Moderate Pain (4-6) Last Admin: 08/20/17 18:14 Dose: 1 tab Atorvastatin Calcium (Lipitor) 40 mg PO DAILY [facility] Last Admin: 08/21/17 09:34 Dose: 40 mg Clonidine (Catapres) 0.3 mg PO BID [facility] Last Admin: 08/21/17 09:33 Dose: 0.3 mg Doxepin HCl (Sinequan) 100 mg PO [facility] Last Admin: 08/20/17 21:18 Dose: 100 mg Fluoxetine HCl (Prozac) 20 mg PO DAILY [facility] Last Admin: 08/21/17 09:33 Dose: 20 mg Gabapentin (Neurontin) 300 mg PO HS [facility] Last Admin: 08/20/17 20:23 Dose: 300 mg Heparin Sodium (Porcine) (Heparin) 5,000 units SC TID [facility] Last Admin: 08/21/17 09:35 Dose: 5,000 units Insulin Glargine 12 units/ (Miscellaneous Medication) 0.12 mls @ 0 mls/hr SC BID [facility] PRN Reason: As Directed Last Admin: 08/21/17 09:31 Dose: 0.12 mls Piperacillin Sod/Tazobactam (Sod 2.25 gm/ Sodium Chloride) 100 mls @ 200 mls/ hr IVPB Q6HR [facility] Last Admin: 08/21/17 05:19 Dose: 100 mls Vancomycin HCl 1 gm/ Device 200 mls @ 200 mls/hr IVPB 2000 [facility] Last Admin: 08/20/17 20:23 Dose: 200 mls Labetalol HCl (Normodyne) 100 mg PO BID [facility] Last Admin: 08/21/17 09:31 Dose: 100 mg Losartan Potassium (Cozaar) 100 mg PO DAILY [facility] Last Admin: 08/21/17 09:33 Dose: 100 mg Lubiprostone (Amitiza) 24 mcg PO [facility] Last Admin: 08/21/17 09:34 Dose: 24 mcg Lurasidone HCl (Latuda) 40 mg PO [facility] Miscellaneous Medication (Pharmacy To Dose) 1 each IVPB ONE PRN PRN Reason: Pharmacy to dose Stop: 08/30/17 02:41 Miscellaneous Medication (Pharmacy To Dose) 1 each IVPB ONE PRN PRN Reason: Pharmacy to dose Stop: 08/30/17 02:42 Morphine Sulfate (Morphine) 2 mg SLOW IVP Q4H PRN PRN Reason: Chest Pain/BP Elevations Last Admin: 08/21/17 09:43 Dose: 2 mg Nifedipine (Procardia Xl) 60 mg PO DAILY [facility] Ondansetron HCl (Zofran) 4 mg IVP Q6H PRN PRN Reason: Nausea/Vomiting Pantoprazole Sodium (Protonix) 40 mg PO QAM [facility] Last Admin: 08/21/17 09:35 Dose: 40 mg Brexpiprazole [ (Rexulti] 2 Mg) 0 each PO DAILY [facility] Potassium Chloride (Klor-Con 10) 10 meq PO DAILY [facility] Last Admin: 08/21/17 09:33 Dose: 10 meq Quetiapine Fumarate (Seroquel) 400 mg PO HS [facility] Last Admin: 08/20/17 20:22 Dose: 400 mg Sodium Chloride (Flush - Normal Saline) 10 ml IVF PRN PRN PRN Reason: Saline Flush Last Admin: 08/20/17 00:34 Dose: 10 ml Torsemide (Demadex) 100 mg PO DAILY [facility] Last Admin: 08/21/17 09:37 Dose: 100 mg Tramadol HCl (Ultram) 50 mg PO Q4H PRN PRN Reason: Pain 4-6 Last Admin: 08/20/17 02:10 Dose: 50 mg
[2017-08-21] MEDS: NIFEdipine XL 60 MG TAB PO SCH (12:56)
[2017-08-21 19:41] LABS: Vancomycin, Trough 10.2 ug/mL
[2017-08-21] MEDS: HYDROcodone/Acetaminophen 5/325 mg Tablet PO PRN (20:09)
[2017-08-21] MEDS: Gabapentin 300 MG CAP PO SCH (20:10)
[2017-08-21] MEDS: Doxepin HCl 25 MG CAP PO SCH (20:11)
[2017-08-21] MEDS: Vancomycin HCl 1.25 GM in Sodium Chloride 0.9% 250 ML 250 ML IVPB SCH (20:21)
[2017-08-21] MEDS: Vancomycin HCl 1 GM in Premix Bag 1 BAG IVPB SCH (21:15)
[2017-08-21] MEDS: traMADol HCl 50 MG TAB PO PRN (21:34)
[2017-08-22] MEDS: Piperacillin/Tazobactam 2.25 GM in Sodium Chloride 0.9% 100 ML IVPB SCH ×4 (05:25→23:30)
[2017-08-22] MEDS: Lubiprostone 24 MCG CAP PO SCH ×2 (09:04→17:11)
[2017-08-22] MEDS: Losartan 25 MG TAB PO SCH (09:04)
[2017-08-22] MEDS: NIFEdipine XL 60 MG TAB PO SCH (09:04)
[2017-08-22] MEDS: Heparin 5,000 UNITS/ML VIAL SC SCH ×3 (09:05→20:55)
[2017-08-22] MEDS: Atorvastatin Calcium 40 MG TAB PO SCH (09:05)
[2017-08-22] MEDS: Labetalol 100 MG TAB PO SCH ×2 (09:05→20:53)
[2017-08-22] MEDS: cloNIDine 0.3 MG TAB PO SCH ×2 (09:05→20:55)
[2017-08-22] MEDS: FLUoxetine HCl 20 MG CAP PO SCH (09:05)
[2017-08-22] MEDS: Potassium Chloride 10 MEQ TAB PO SCH (09:05)
[2017-08-22] MEDS: Insulin Glargine 12 UNITS in Pre-Filled Syringe 1 EACH SC SCH ×2 (09:54→20:53)
[2017-08-22] MEDS: Torsemide 100 MG TAB PO SCH (09:54)
--- NOTE | 2017-08-22 11:21 | PDOC.PN ---
- Subjective Encounter Start Date: 08/22/17 Encounter Start Time: 08:40 Subjective: still has pain in left leg - Objective Resuscitation Status: Resuscitation Status FULL:Full Resuscitation MAR Reviewed: Yes Vital Signs & Weight: Vital Signs (12 hours) Temp Pulse Resp BP BP Pulse Ox 08/22/17 09:05 102 H 162/113 H 08/22/17 09:04 102 H 162/113 H 08/22/17 08:00 98.1 F 102 H 18 162/113 H 95 Weight Admit Weight 209 lb 3 oz Weight 209 lb 3 oz I&O: 08/21/17 08/22/17 08/23/17 06:59 06:59 06:59 Intake Total 640 690 Balance 640 690 Result Diagrams: 08/20/17 02:53 08/20/17 02:53 Additional Labs: Accuchecks 08/22/17 08/21/17 08/21/17 04:50 20:20 16:35 POC Glucose 115 H 131 H 156 H 08/21/17 11:19 POC Glucose 151 H Phys Exam - Physical Examination HEENT: PERRLA, moist MMs Neck: no JVD, supple Respiratory: no wheezing, no rales Cardiovascular: RRR, no significant murmur Gastrointestinal: soft, non-tender, positive bowel sounds Musculoskeletal: pulses present left leg has new blister with erythema and edema Neurological: non-focal, moves all 4 limbs Psychiatric: normal affect, A&O x 3 Dx/Plan (1) Left leg cellulitis Code(s): L03.116 - CELLULITIS OF LEFT LOWER LIMB Status: Acute (2) Hypertension Code(s): I10 - ESSENTIAL (PRIMARY) HYPERTENSION Status: Chronic Qualifiers: Hypertension type: essential hypertension Qualified Code(s): I10 - Essential (primary) hypertension (3) Bipolar disorder Code(s): F31.9 - BIPOLAR DISORDER, UNSPECIFIED Status: Chronic Qualifiers: Active/Remission status: remission status unspecified Qualified Code(s): F31.9 - Bipolar disorder, unspecified Comment: Continue home medication regimen (4) CAD (coronary artery disease) Code(s): I25.10 - ATHSCL HEART DISEASE OF [place] CORONARY ARTERY W/O ANG PCTRS Status: Chronic Qualifiers: Coronary Disease-Associated Artery/Lesion type: [place] artery [place] vs. transplanted heart: [place] heart Associated angina: without angina Qualified Code(s): I25.10 - Atherosclerotic heart disease of [place] coronary artery without angina pectoris (5) Crohns disease Code(s): K50.90 - CROHN'S DISEASE, UNSPECIFIED, WITHOUT COMPLICATIONS Status: Chronic Qualifiers: Gastrointestinal tract location: unspecified location Digestive disease complication type: unspecified complication Qualified Code(s): K50.919 - Crohn 's disease, unspecified, with unspecified complications Comment: on remicaid infusion [id number] (6) DM type 2 (diabetes mellitus, type 2) Status: Chronic Qualifiers: Diabetes mellitus termite treater helper insulin use: with [facility] use Diabetes mellitus complication status: with kidney complications Diabetes mellitus complication detail: with chronic kidney disease Chronic kidney disease stage : stage 3 (moderate) Qualified Code(s): E11.22 - Type 2 diabetes mellitus with diabetic chronic kidney disease; N18.3 - Chronic kidney disease, stage 3 ( moderate); N18.3 - Chronic kidney disease, stage 3 (moderate); Z79.4 - computer terminal operator (current) use of insulin; Z79.4 - half-way (current) use of insulin; Z79.4 - half-way (current) use of insulin; Z79.4 - half-way (current) use of insulin (7) Obesity Code(s): E66.9 - OBESITY, UNSPECIFIED Status: Chronic Qualifiers: Obesity type: unspecified obesity type Obesity classification: adult class 2 (BMI 35 - 39.9) Body mass index: BMI 38.0-38.9 - Plan is on vanc and zosyn -: wound care, to wear laci hose -: asp, lipitor, clonidine, cozaar, procardia, labetalol -: to amb as tolerated -: has new blister with tenderness, erythema and edema, needs 1-2 more days * . Review of Systems - Medications/Allergies Allergies/Adverse Reactions: Allergies Allergy/AdvReac Type Severity Reaction Status Date / Time No Known Drug Allergies Allergy Verified 08/19/17 23:42 Medications: Current Medications Acetaminophen (Tylenol) 650 mg PO Q4H PRN PRN Reason: Headache/Fever or Pain Hydrocodone Bitart/Acetaminophen ([place] 5/325) 1 tab PO Q4H PRN PRN Reason: Moderate Pain (4-6) Last Admin: 08/21/17 20:09 Dose: 1 tab Atorvastatin Calcium (Lipitor) 40 mg PO DAILY [facility] Last Admin: 08/22/17 09:05 Dose: 40 mg Clonidine (Catapres) 0.3 mg PO BID [facility] Last Admin: 08/22/17 09:05 Dose: 0.3 mg Doxepin HCl (Sinequan) 100 mg PO [facility] Last Admin: 08/21/17 20:11 Dose: 100 mg Fluoxetine HCl (Prozac) 20 mg PO DAILY [facility] Last Admin: 08/22/17 09:05 Dose: 20 mg Gabapentin (Neurontin) 300 mg PO [facility] Last Admin: 08/21/17 20:10 Dose: 300 mg Heparin Sodium (Porcine) (Heparin) 5,000 units SC TID [facility] Last Admin: 08/22/17 09:05 Dose: 5,000 units Insulin Glargine 12 units/ (Miscellaneous Medication) 0.12 mls @ 0 mls/hr SC BID [facility] PRN Reason: As Directed Last Admin: 08/22/17 09:54 Dose: 0.12 mls Piperacillin Sod/Tazobactam (Sod 2.25 gm/ Sodium Chloride) 100 mls @ 200 mls/ hr IVPB Q6HR [facility] Last Admin: 08/22/17 05:25 Dose: 100 mls Vancomycin HCl 1.25 gm/ Sodium (Chloride) 250 mls @ 166.667 mls/hr IVPB 2000 [facility] Last Admin: 08/21/17 20:21 Dose: 250 mls Labetalol HCl (Normodyne) 100 mg PO BID [facility] Last Admin: 08/22/17 09:05 Dose: 100 mg Losartan Potassium (Cozaar) 100 mg PO DAILY [facility] Last Admin: 08/22/17 09:04 Dose: 100 mg Lubiprostone (Amitiza) 24 mcg PO [facility]ID[facility] Last Admin: 08/22/17 09:04 Dose: 24 mcg Lurasidone HCl (Latuda) 40 mg PO [facility] Miscellaneous Medication (Pharmacy To Dose) 1 each IVPB ONE PRN PRN Reason: Pharmacy to dose Stop: 08/30/17 02:41 Miscellaneous Medication (Pharmacy To Dose) 1 each IVPB ONE PRN PRN Reason: Pharmacy to dose Stop: 08/30/17 02:42 Morphine Sulfate (Morphine) 2 mg SLOW IVP Q4H PRN PRN Reason: Chest Pain/BP Elevations Last Admin: 08/22/17 09:00 Dose: 2 mg Nifedipine (Procardia Xl) 60 mg PO DAILY [facility] Last Admin: 08/22/17 09:04 Dose: 60 mg Ondansetron HCl (Zofran) 4 mg IVP Q6H PRN PRN Reason: Nausea/Vomiting Pantoprazole Sodium (Protonix) 40 mg PO QAM [facility] Last Admin: 08/22/17 09:05 Dose: 40 mg Brexpiprazole [ (Rexulti] 2 Mg) 0 each PO DAILY [facility] Plecanatide [ (Trulance] 3 Mg) 0 each PO DAILY [facility] Potassium Chloride (Klor-Con 10) 10 meq PO DAILY [facility] Last Admin: 08/22/17 09:05 Dose: 10 meq Quetiapine Fumarate (Seroquel) 400 mg PO HS [facility] Last Admin: 08/21/17 20:10 Dose: 400 mg Sodium Chloride (Flush - Normal Saline) 10 ml IVF PRN PRN PRN Reason: Saline Flush Last Admin: 08/20/17 00:34 Dose: 10 ml Torsemide (Demadex) 100 mg PO DAILY [facility] Last Admin: 08/22/17 09:54 Dose: 100 mg Tramadol HCl (Ultram) 50 mg PO Q4H PRN PRN Reason: Pain 4-6 Last Admin: 08/21/17 21:34 Dose: 50 mg
[2017-08-22] MEDS: Vancomycin HCl 1.25 GM in Sodium Chloride 0.9% 250 ML 250 ML IVPB SCH (20:48)
[2017-08-22] MEDS: Doxepin HCl 25 MG CAP PO SCH (20:53)
[2017-08-22] MEDS: Gabapentin 300 MG CAP PO SCH (20:53)
[2017-08-23] MEDS: Piperacillin/Tazobactam 2.25 GM in Sodium Chloride 0.9% 100 ML IVPB SCH ×3 (05:47→16:52)
[2017-08-23 07:54] LABS: #Eosinphils 0.2 thou/uL (0.0-0.7); #Lymphocytes 1.8 thou/uL (1.20-3.40); #Monocytes 0.5 thou/uL (0.11-0.59); %Basophils 0.8 % (0.0-1.0); %Eosinophils 3.8 % (0.0-10.0); %Lymphocytes 31.8 % (21.0-51.0); %Monocytes 9.4 % (0.0-10.0); %Neutrophils 54.2 % (42.0-75.0); Hemoglobin 11.2 g/dL (12.0-16.0); Mean Corpuscular HGB CONC 33.1 g/dL (32.0-36.0); Mean Corpuscular Hemoglobin 30.1 pg (27.0-31.0); Mean Corpuscular Volume 90.9 fl (81.0-99.0); Mean Platelet Volume 6.6 fL (7.4-10.4); Platelet Count 346 thou/uL (130-400); RBC Distribution Width 16.6 % (11.5-14.5); Red Blood Cell (RBC) Count 3.73 mill/uL (4.20-5.40); White Blood Cell (WBC) Count 5.6 thou/uL (4.8-10.8)
[2017-08-23] MEDS: Losartan 25 MG TAB PO SCH (08:02)
[2017-08-23] MEDS: FLUoxetine HCl 20 MG CAP PO SCH (08:02)
[2017-08-23] MEDS: cloNIDine 0.3 MG TAB PO SCH ×2 (08:03→21:43)
[2017-08-23] MEDS: Labetalol 100 MG TAB PO SCH ×2 (08:03→21:44)
[2017-08-23] MEDS: Atorvastatin Calcium 40 MG TAB PO SCH (08:03)
[2017-08-23] MEDS: Lubiprostone 24 MCG CAP PO SCH ×2 (08:03→16:52)
[2017-08-23] MEDS: Potassium Chloride 10 MEQ TAB PO SCH (08:03)
[2017-08-23] MEDS: Insulin Glargine 12 UNITS in Pre-Filled Syringe 1 EACH SC SCH ×2 (08:04→21:43)
[2017-08-23] MEDS: NIFEdipine XL 60 MG TAB PO SCH (08:04)
[2017-08-23] MEDS: Heparin 5,000 UNITS/ML VIAL SC SCH ×3 (08:04→21:43)
[2017-08-23 08:11] LABS: Anion Gap 14 mmol/L (10-20); BUN (Urea Nitrogen) 23 mg/dL (9.8-20.1); Calc. Creatinine Clearance 54 mL/min (70-130); Calcium 8.9 mg/dL (7.8-10.44); Carbon Dioxide 25 mmol/L (23-31); Chloride 107 mmol/L (98-107); Estimated GFR-MDRD 39; Glucose 123 mg/dL (80-115); Potassium 3.9 mmol/L (3.5-5.1); Sodium 142 mmol/L (136-145)
[2017-08-23] MEDS: Plecanatide [Trulance] 3 MG PO SCH (08:13)
[2017-08-23] MEDS ORDERED: PLECANATIDE 3 MG PO SCH (09:00)
--- NOTE | 2017-08-23 11:01 | PDOC.PN ---
- Subjective Encounter Start Date: 08/23/17 Encounter Start Time: 07:35 Subjective: left leg pain and swelling is coming down -: is amb in room -: wearing laci hose on left leg - Objective Resuscitation Status: Resuscitation Status FULL:Full Resuscitation MAR Reviewed: Yes Vital Signs & Weight: Vital Signs (12 hours) Temp Pulse Resp BP BP Pulse Ox 08/23/17 08:04 99 08/23/17 08:03 99 150/98 H 08/23/17 08:00 97.5 F L 99 18 95 08/23/17 07:49 98.1 F 99 18 138/94 H 95 Weight Admit Weight 209 lb 3 oz Weight 209 lb 3 oz I&O: 08/22/17 08/23/17 08/24/17 06:59 06:59 06:59 Intake Total 690 470 240 Output Total 0 Balance 690 470 240 Result Diagrams: 08/23/17 07:43 08/23/17 07:43 Additional Labs: Accuchecks 08/23/17 08/22/17 08/22/17 05:50 21:09 16:46 POC Glucose 123 H 123 H 145 H 08/22/17 11:09 POC Glucose 198 H Phys Exam - Physical Examination HEENT: PERRLA, moist MMs Neck: no JVD, supple Respiratory: no wheezing, no rales Cardiovascular: RRR, no significant murmur Gastrointestinal: soft, non-tender, positive bowel sounds Musculoskeletal: pulses present left leg in dressing, edema is receding, mild pain to deep palp Neurological: non-focal, moves all 4 limbs Psychiatric: normal affect, A&O x 3 Dx/Plan (1) Left leg cellulitis Code(s): L03.116 - CELLULITIS OF LEFT LOWER LIMB Status: Acute Comment: s/p I&D of hematoma/abscess in ER on arrival (2) Hypertension Code(s): I10 - ESSENTIAL (PRIMARY) HYPERTENSION Status: Chronic Qualifiers: Hypertension type: essential hypertension Qualified Code(s): I10 - Essential (primary) hypertension (3) Bipolar disorder Code(s): F31.9 - BIPOLAR DISORDER, UNSPECIFIED Status: Chronic Qualifiers: Active/Remission status: remission status unspecified Qualified Code(s): F31.9 - Bipolar disorder, unspecified Comment: Continue home medication regimen (4) CAD (coronary artery disease) Code(s): I25.10 - ATHSCL HEART DISEASE OF [place] CORONARY ARTERY W/O ANG PCTRS Status: Chronic Qualifiers: Coronary Disease-Associated Artery/Lesion type: [place] artery [place] vs. transplanted heart: [place] heart Associated angina: without angina Qualified Code(s): I25.10 - Atherosclerotic heart disease of [place] coronary artery without angina pectoris (5) Crohns disease Code(s): K50.90 - CROHN'S DISEASE, UNSPECIFIED, WITHOUT COMPLICATIONS Status: Chronic Qualifiers: Gastrointestinal tract location: unspecified location Digestive disease complication type: unspecified complication Qualified Code(s): K50.919 - Crohn 's disease, unspecified, with unspecified complications Comment: on remicaid infusion [id number] (6) DM type 2 (diabetes mellitus, type 2) Status: Chronic Qualifiers: Diabetes mellitus [facility] insulin use: with [facility] use Diabetes mellitus complication status: with kidney complications Diabetes mellitus complication detail: with chronic kidney disease Chronic kidney disease stage : stage 3 (moderate) Qualified Code(s): E11.22 - Type 2 diabetes mellitus with diabetic chronic kidney disease; N18.3 - Chronic kidney disease, stage 3 ( moderate); N18.3 - Chronic kidney disease, stage 3 (moderate); Z79.4 - intermediate (current) use of insulin; Z79.4 - termite inspector (current) use of insulin; Z79.4 - termite inspector (current) use of insulin; Z79.4 - intermediate (current) use of insulin (7) Obesity Code(s): E66.9 - OBESITY, UNSPECIFIED Status: Chronic Qualifiers: Obesity type: unspecified obesity type Obesity classification: adult class 2 (BMI 35 - 39.9) Body mass index: BMI 38.0-38.9 - Plan is on procardia and labetalol with control of htn now -: on vanc and zosyn, to switch to keflex in am for 7 days, laci ewing -: lasix iv total of 3 to 4 doses to help with edema, oral demadex held -: to amb as tolerated -: may dc in am if stable * . Review of Systems - Medications/Allergies Allergies/Adverse Reactions: Allergies Allergy/AdvReac Type Severity Reaction Status Date / Time No Known Drug Allergies Allergy Verified 08/19/17 23:42 Medications: Current Medications Acetaminophen (Tylenol) 650 mg PO Q4H PRN PRN Reason: Headache/Fever or Pain Hydrocodone Bitart/Acetaminophen ([place] 5/325) 1 tab PO Q4H PRN PRN Reason: Moderate Pain (4-6) Last Admin: 08/21/17 20:09 Dose: 1 tab Atorvastatin Calcium (Lipitor) 40 mg PO DAILY [facility] Last Admin: 08/23/17 08:03 Dose: 40 mg Clonidine (Catapres) 0.3 mg PO BID [facility] Last Admin: 08/23/17 08:03 Dose: 0.3 mg Doxepin HCl (Sinequan) 100 mg PO HS [facility] Last Admin: 08/22/17 20:53 Dose: 100 mg Fluoxetine HCl (Prozac) 20 mg PO DAILY [facility] Last Admin: 08/23/17 08:02 Dose: 20 mg Furosemide (Lasix) 40 mg SLOW IVP 0600,1400 [facility] Stop: 08/25/17 06:01 Gabapentin (Neurontin) 300 mg PO [facility] Last Admin: 08/22/17 20:53 Dose: 300 mg Heparin Sodium (Porcine) (Heparin) 5,000 units SC TID [facility] Last Admin: 08/23/17 08:04 Dose: 5,000 units Insulin Glargine 12 units/ (Miscellaneous Medication) 0.12 mls @ 0 mls/hr SC BID [facility] PRN Reason: As Directed Last Admin: 08/23/17 08:04 Dose: 0.12 mls Piperacillin Sod/Tazobactam (Sod 2.25 gm/ Sodium Chloride) 100 mls @ 200 mls/ hr IVPB Q6HR [facility] Last Admin: 08/23/17 05:47 Dose: 100 mls Vancomycin HCl 1.25 gm/ Sodium (Chloride) 250 mls @ 166.667 mls/hr IVPB 2000 [facility] Last Admin: 08/22/17 20:48 Dose: 250 mls Labetalol HCl (Normodyne) 100 mg PO BID [facility] Last Admin: 08/23/17 08:03 Dose: 100 mg Losartan Potassium (Cozaar) 100 mg PO DAILY [facility] Last Admin: 08/23/17 08:02 Dose: 100 mg Lubiprostone (Amitiza) 24 mcg PO BID[facility] Last Admin: 08/23/17 08:03 Dose: 24 mcg Lurasidone HCl (Latuda) 40 mg PO [facility] Miscellaneous Medication (Pharmacy To Dose) 1 each IVPB ONE PRN PRN Reason: Pharmacy to dose Stop: 08/30/17 02:41 Miscellaneous Medication (Pharmacy To Dose) 1 each IVPB ONE PRN PRN Reason: Pharmacy to dose Stop: 08/30/17 02:42 Morphine Sulfate (Morphine) 2 mg SLOW IVP Q4H PRN PRN Reason: Chest Pain/BP Elevations Last Admin: 08/23/17 08:10 Dose: 2 mg Nifedipine (Procardia Xl) 60 mg PO DAILY [facility] Last Admin: 08/23/17 08:04 Dose: 60 mg Ondansetron HCl (Zofran) 4 mg IVP Q6H PRN PRN Reason: Nausea/Vomiting Pantoprazole Sodium (Protonix) 40 mg PO QAM [facility] Last Admin: 08/23/17 08:03 Dose: 40 mg Brexpiprazole [ (Rexulti] 2 Mg) 0 each PO DAILY [facility] Plecanatide [ (Trulance] 3 Mg) 0 each PO DAILY [facility] Last Admin: 08/23/17 08:13 Dose: 3 each Potassium Chloride (Klor-Con 10) 10 meq PO DAILY [facility] Last Admin: 08/23/17 08:03 Dose: 10 meq Quetiapine Fumarate (Seroquel) 400 mg PO HS [facility] Last Admin: 08/22/17 20:55 Dose: 400 mg Sodium Chloride (Flush - Normal Saline) 10 ml IVF PRN PRN PRN Reason: Saline Flush Last Admin: 08/20/17 00:34 Dose: 10 ml Tramadol HCl (Ultram) 50 mg PO Q4H PRN PRN Reason: Pain 4-6 Last Admin: 08/21/17 21:34 Dose: 50 mg
[2017-08-23] MEDS: Furosemide 40 MG/4 ML VIAL SLOW IVP SCH (14:36)
[2017-08-23 19:32] LABS: Vancomycin, Trough 14.6 ug/mL
[2017-08-23] MEDS: Vancomycin HCl 1.25 GM in Sodium Chloride 0.9% 250 ML 250 ML IVPB SCH (21:43)
[2017-08-23] MEDS: Doxepin HCl 25 MG CAP PO SCH (21:43)
[2017-08-23] MEDS: Gabapentin 300 MG CAP PO SCH (21:44)
[2017-08-24] MEDS: Piperacillin/Tazobactam 2.25 GM in Sodium Chloride 0.9% 100 ML IVPB SCH ×2 (00:21→05:32)
[2017-08-24 05:03] LABS: #Eosinphils 0.3 thou/uL (0.0-0.7); #Lymphocytes 2.1 thou/uL (1.20-3.40); #Monocytes 0.6 thou/uL (0.11-0.59); #Neutrophils 2.8 thou/uL (1.40-6.50); %Basophils 0.6 % (0.0-1.0); %Eosinophils 4.6 % (0.0-10.0); %Monocytes 10.2 % (0.0-10.0); %Neutrophils 48.6 % (42.0-75.0); Hemoglobin 11.7 g/dL (12.0-16.0); Mean Corpuscular HGB CONC 34.3 g/dL (32.0-36.0); Mean Corpuscular Hemoglobin 31.3 pg (27.0-31.0); Mean Corpuscular Volume 91.3 fl (81.0-99.0); Mean Platelet Volume 6.9 fL (7.4-10.4); Platelet Count 353 thou/uL (130-400); RBC Distribution Width 16.5 % (11.5-14.5); Red Blood Cell (RBC) Count 3.75 mill/uL (4.20-5.40); White Blood Cell (WBC) Count 5.7 thou/uL (4.8-10.8)
[2017-08-24 05:13] LABS: Anion Gap 14 mmol/L (10-20); BUN (Urea Nitrogen) 23 mg/dL (9.8-20.1); Calc. Creatinine Clearance 50 mL/min (70-130); Calcium 8.8 mg/dL (7.8-10.44); Carbon Dioxide 27 mmol/L (23-31); Chloride 104 mmol/L (98-107); Estimated GFR-MDRD 36; Glucose 106 mg/dL (80-115); Potassium 3.5 mmol/L (3.5-5.1); Sodium 141 mmol/L (136-145)
[2017-08-24] MEDS: Furosemide 40 MG/4 ML VIAL SLOW IVP SCH ×2 (05:31→13:09)
[2017-08-24 08:06] VITALS: BP 137/84; TEMP 98.2
[2017-08-24] MEDS: Losartan 25 MG TAB PO SCH (08:46)
[2017-08-24] MEDS: Atorvastatin Calcium 40 MG TAB PO SCH (08:47)
[2017-08-24] MEDS: Potassium Chloride 10 MEQ TAB PO SCH (08:47)
[2017-08-24] MEDS: NIFEdipine XL 60 MG TAB PO SCH (08:47)
[2017-08-24] MEDS: FLUoxetine HCl 20 MG CAP PO SCH (08:47)
[2017-08-24] MEDS: Heparin 5,000 UNITS/ML VIAL SC SCH (08:48)
[2017-08-24] MEDS: cloNIDine 0.3 MG TAB PO SCH (08:48)
[2017-08-24] MEDS: Lubiprostone 24 MCG CAP PO SCH (08:50)
[2017-08-24] MEDS: Plecanatide [Trulance] 3 MG PO SCH (08:51)
[2017-08-24] MEDS: Labetalol 100 MG TAB PO SCH (08:53)
[2017-08-24] MEDS: Insulin Glargine 12 UNITS in Pre-Filled Syringe 1 EACH SC SCH (08:53)
--- NOTE | 2017-08-24 10:24 | PDOC.PN ---
- Subjective Encounter Start Date: 08/24/17 Encounter Start Time: 11:40 Subjective: Patient feeling better. Redness resolved. New blister developed on leg, but -: clear fluid. No pus from I&D'd lesion. No purulence. - Objective Resuscitation Status: Resuscitation Status FULL:Full Resuscitation MAR Reviewed: Yes Vital Signs & Weight: Vital Signs (12 hours) Temp Pulse Resp BP BP Pulse Ox 08/24/17 08:53 92 137/84 08/24/17 08:48 137/84 08/24/17 08:47 92 137/84 08/24/17 08:00 98.2 F 92 18 137/84 94 L Weight Admit Weight 209 lb 3 oz Weight 209 lb 3 oz I&O: 08/23/17 08/24/17 08/25/17 06:59 06:59 06:59 Intake Total 470 600 Output Total 0 Balance 470 600 Result Diagrams: 08/24/17 04:30 08/24/17 04:30 Additional Labs: Accuchecks 08/24/17 08/23/17 08/23/17 04:59 20:33 16:35 POC Glucose 112 H 127 H 178 H 08/23/17 11:39 POC Glucose 120 H Phys Exam - Physical Examination Constitutional: NAD Obese HEENT: moist MMs Respiratory: no wheezing, no rales, no rhonchi, clear to auscultation bilateral Cardiovascular: RRR, no significant murmur Gastrointestinal: soft, positive bowel sounds obese trace edema, no further redness, packing in left palmer lesion with another clear blister next to it, no purulence Neurological: non-focal, moves all 4 limbs Psychiatric: normal affect, A&O x 3 Dx/Plan (1) Left leg cellulitis Code(s): L03.116 - CELLULITIS OF LEFT LOWER LIMB Status: Acute Comment: s/p I&D of hematoma in ER on arrival, non-purulent cellulitits that is resolving, will change to Keflex as low risk of MRSA without purulence. Close f/u with PCP to make sure doesn't worsen with change of abx (2) Hypertension Code(s): I10 - ESSENTIAL (PRIMARY) HYPERTENSION Status: Chronic Qualifiers: Hypertension type: essential hypertension Qualified Code(s): I10 - Essential (primary) hypertension (3) Bipolar disorder Code(s): F31.9 - BIPOLAR DISORDER, UNSPECIFIED Status: Chronic Qualifiers: Active/Remission status: remission status unspecified Qualified Code(s): F31.9 - Bipolar disorder, unspecified Comment: Continue home medication regimen (4) CAD (coronary artery disease) Code(s): I25.10 - ATHSCL HEART DISEASE OF [place] CORONARY ARTERY W/O ANG PCTRS Status: Chronic Qualifiers: Coronary Disease-Associated Artery/Lesion type: [place] artery [place] vs. transplanted heart: [place] heart Associated angina: without angina Qualified Code(s): I25.10 - Atherosclerotic heart disease of [place] coronary artery without angina pectoris (5) Crohns disease Code(s): K50.90 - CROHN'S DISEASE, UNSPECIFIED, WITHOUT COMPLICATIONS Status: Chronic Qualifiers: Gastrointestinal tract location: unspecified location Digestive disease complication type: unspecified complication Qualified Code(s): K50.919 - Crohn 's disease, unspecified, with unspecified complications Comment: on remicaid infusion [id number] (6) DM type 2 (diabetes mellitus, type 2) Status: Chronic Qualifiers: Diabetes mellitus terminal make up operator insulin use: with penitentiary use Diabetes mellitus complication status: with kidney complications Diabetes mellitus complication detail: with chronic kidney disease Chronic kidney disease stage : stage 3 (moderate) Qualified Code(s): E11.22 - Type 2 diabetes mellitus with diabetic chronic kidney disease; N18.3 - Chronic kidney disease, stage 3 ( moderate); N18.3 - Chronic kidney disease, stage 3 (moderate); Z79.4 - terminal make up operator (current) use of insulin; Z79.4 - terminal make up operator (current) use of insulin; Z79.4 - terminal make up operator (current) use of insulin; Z79.4 - group home (current) use of insulin (7) Obesity Code(s): E66.9 - OBESITY, UNSPECIFIED Status: Chronic Qualifiers: Obesity type: unspecified obesity type Obesity classification: adult class 2 (BMI 35 - 39.9) Body mass index: BMI 38.0-38.9 - Plan cont current plan of care, continue antibiotics Switching to oral Keflex today and d/c home. F/u with PCP in 2 days. * . - Discharge Day Encounter end time: 11:55
[2017-08-24] MEDS ORDERED: Milk Of Magnesia 30 ML UDCUP PO PRN (11:45)
[2017-08-24] MEDS ORDERED: Cephalexin 250 MG CAP PO SCH (21:00)
--- NOTE | 2017-08-24 23:10 | DIS ---
PRIMARY CARE PHYSICIAN: Dr. Crys Andrade. REASON FOR ADMISSION: Cellulitis. DISCHARGE DIAGNOSES: 1. Left leg cellulitis, nonpurulent, improving. 2. Hypertension. 3. Bipolar disorder. 4. Coronary artery disease. 5. Crohn's disease. 6. Diabetes mellitus type 2. 7. Obesity. PROCEDURES: Lower extremity ultrasound showing no evidence for deep vein thrombosis in the left lowe r extremity, resolving hematoma versus fluid collection in the anterior left lower leg extremity soft tissues. CONSULTATIONS: None. SUMMARY OF HOSPITAL COURSE: This is a 61-year-old female with a history of diabetes mellitus, insulin, hypertension, bipolar disorder, and Crohn's disease on Remicade, who came in with left lower foot and ankle swelling and pain going on for about 2 weeks after she hurt her foot. In the emergency room, she was noted to have swelling in the anterior left palmer. Ultrasound showed no D VT, but she did have a fluid collection with like resolving hematoma, this was lanced in the emergenc y room with no return of purulent fluid just some serous blood breakdown products. The patient was a dmitted to the hospital. Blood cultures were done. She was on broad broad-spectrum IV antibiotics, Zosyn, and vancomycin. She had some improvement in her symptoms during hospitalization. Blood cultu res came back negative. She has had small blister developed on the left anterior palmer as well, this has clear fluid. She never developed any purulent drainage The day of discharge, she was switched to Keflex twice a day orally to complete a 14-day course of an tibiotics and being discharged home. DISCHARGE MANAGEMENT: Discharged home. ACTIVITIES: As tolerated. DIET: Diabetic diet. DISCHARGE MEDICATIONS: 1. Keflex 500 mg twice a day for 9 days. 2. Tylenol with codeine #3 one tablet every 4 hours as needed for pain, 20 tablets dispensed. 3. Resume all home medications. Atorvastatin 40 mg daily. 4. Clonidine 0.3 mg twice a day. 5. Doxepin 100 mg at night. 6. Nexium 40 mg in the morning. 7. Fluoxetine 20 mg daily. 8. Gabapentin 300 mg at night. 9. Losartan 100 mg daily. 10. Amitiza 24 mcg twice a day. 11. Latuda 40 mg at night. 12. Potassium chloride 10 mEq daily. 13. Seroquel 400 mg at night. 14. Rexulti 2 mg daily. 15. Remicade 100 mg IV every 8 weeks. 16. Levemir 12 units subcu twice a day. 17. Trulance 3 mg daily. 18. Demadex 100 mg daily. FOLLOWUP: The patient will followup with primary care physician in two days for wound recheck and ma ke sure her she is to improve with switch to oral antibiotics.
== END 2017-08-24 15:54 | disposition home or self-care (01) | DRG 603 ==
LOC: ERS 18:23 → OBSVTOIN 21:00 → 2SW 21:00 → T4-B 08-20 11:08
PROVIDERS: ADMIT Internal Medicine Infectious Disease; ATTEND Internal Medicine Infectious Disease
PROC: 0H9LXZZ Drainage of Left Lower Leg Skin, External Approach (ICD-10-PCS; principal; 2017-08-19)
DX: L03.116 Cellulitis of left lower limb (principal); K50.90 Crohn's disease, unspecified, without complications; E11.51 Type 2 diabetes mellitus with diabetic peripheral angiopathy without gangrene; I16.0 Hypertensive urgency; E11.22 Type 2 diabetes mellitus with diabetic chronic kidney disease; I12.9 Hypertensive chronic kidney disease with stage 1 through stage 4 chronic kidney disease, or unspecified chronic kidney disease; N18.3 Chronic kidney disease, stage 3 (moderate); E78.5 Hyperlipidemia, unspecified; K21.9 Gastro-esophageal reflux disease without esophagitis; G47.33 Obstructive sleep apnea (adult) (pediatric); I25.10 Atherosclerotic heart disease of native coronary artery without angina pectoris; F17.210 Nicotine dependence, cigarettes, uncomplicated; F31.9 Bipolar disorder, unspecified; E66.9 Obesity, unspecified; Z68.38 Body mass index [BMI] 38.0-38.9, adult; Z79.4 Long term (current) use of insulin; Z79.899 Other long term (current) drug therapy
CPT/HCPCS: 10060; 36415; 36416; 80048; 80053; 80202; 82550; 83036; 85025; 85652; 86140; 87040; 96365; 96366; 96375; J0360; J1644; J1940; J2001; J2270; J2543; J3370; J7050

== ENCOUNTER 2017-09-01 08:32 | Day surgery (SDC) | payer OTHER ==
[2017-09-01] MEDS ORDERED: Sodium Chloride 0.9% 30 ML ONE (08:45)
[2017-09-01] MEDS ORDERED: diphenhydrAMINE 50 MG/ML VIAL IVP PRN (08:53)
[2017-09-01] MEDS ORDERED: Acetaminophen 500 MG TAB PO PRN (08:54)
[2017-09-01] MEDS ORDERED: cloNIDine 0.1 MG TAB PO PRN (08:58)
[2017-09-01] MEDS ORDERED: diphenhydrAMINE 50 MG/ML VIAL IVP SCH (09:00)
[2017-09-01] MEDS ORDERED: diphenhydrAMINE 25 MG CAP PO SCH (09:00)
[2017-09-01] MEDS ORDERED: Acetaminophen 500 MG TAB PO SCH (09:00)
[2017-09-01] MEDS ORDERED: Sodium Chloride 0.9% 1,000 ML IV SCH (09:00)
[2017-09-01] MEDS ORDERED: INFLIXIMAB-DYYB 900 MG in Sodium Chloride 0.9% 250 ML 250 ML IVPB SCH (09:00)
[2017-09-01 09:07] VITALS: BP 193/120
[2017-09-01 09:40] VITALS: TEMP 98.4
[2017-09-01] MEDS ORDERED: SODIUM CHLORIDE 0.9% IV SCH (10:30)
[2017-09-01] MEDS ORDERED: INFLIXIMAB DYYB IV SCH (10:30)
== END 2017-09-01 16:13 | disposition home or self-care (01) ==
LOC: ONC/OP 08:32
PROVIDERS: ATTEND Internal Medicine Gastroenterology
DX: K50.90 Crohn's disease, unspecified, without complications (principal)
CPT/HCPCS: 96413; 96415; A4216; J1200; J1642; J1745; J7050

== ENCOUNTER 2017-10-08 07:50 | Outpatient (CLI) | payer OTHER ==
--- NOTE | 2017-10-08 11:44 | HP ---
DATE OF SERVICE: 10/08/2017 HISTORY OF PRESENT ILLNESS: Ms. Ronda Mosqueda is a very pleasant 62-year-old who presents to the [facility]ound Center for evaluation of a wound of the left anterior lower leg subsequent to incision and ab carrillo. The patient states that after a fall while she was getting out of the tub, she developed swell ing and bruising of her left lower leg. The patient states that she was seen in Urgent Care and x-ra ys were obtained which showed no evidence of a fracture. Because of continued swelling of her left l ower leg the patient was seen in the Emergency Department here at [facility] a nd ultrasound revealed a hematoma for which the patient underwent incision and drainage. The patient was subsequently admitted to [facility] for cellulitis. At a follow up visit with Dr. Andrade, the patient was referred to the Wound Center for further evaluation and treatme nt. The patient states that she continues to have pain of her left lower leg along with continued dr ruiz from the wound of her left anterior lower leg from incision and drainage. The patient states she has been cleansing her wound with hydrogen peroxide and applying Triple Antibiotic ointment follo wed by a waterproof Band-Aid. PAST MEDICAL HISTORY: 1. Crohn's disease. 2. Hypertension. 3. Diabetes mellitus. 4. Gastroesophageal reflux disease. 5. Obstructive sleep apnea. 6. Hypothyroidism. 7. Asthma. 8. History of headaches. 9. History of "mini strokes." PAST SURGICAL HISTORY: 1. Hysterectomy/bilateral salpingo-oophorectomy. 2. Cholecystectomy. 3. Left finger surgery. 4. MediPort placement. MEDICATIONS: 1. Albuterol. 2. Remicade. 3. Amitiza. 4. Potassium chloride. 5. Clonazepam. 6. Procardia. 7. Clonidine. 8. Seroquel. 9. Doxepin. 10. Torsemide. 11. Gabapentin. 12. Vitamin B6. 13. Vitamin C. 14. Levemir. 15. Calcitriol. 16. Losartan. 17. Coreg. 18. Quetiapine 19. Fluoxetine 20. Atorvastatin. 21. Rexulti. ALLERGIES: No known diagnosed allergies. SOCIAL HISTORY: Significant for tobacco use of 1/2 pack of cigarettes per day for 12 years. The pat ient denies any history of ETOH use. FAMILY HISTORY: Significant for diabetes mellitus. The patient's mother and father were both diagno sed with diabetes mellitus. PHYSICAL EXAMINATION: VITAL SIGNS: Temperature 98.5, pulse 102, respirations 21, blood pressure 177/119. Accu-Chek 158. GENERAL: A 62-year-old female sitting on table in examination room in no acute distress. HEENT: Normocephalic, atraumatic. NECK: No nuchal rigidity. CHEST: Clear to auscultation. CARDIAC: Regular rate and rhythm. ABDOMEN: Soft. EXTREMITIES: A wound of the left anterior lower leg is present which measures approximately 0.4 x 0. 7 cm. Granulation tissue is present within the wound margins. No purulent drainage is associated wi th the wound. No erythema of the skin surrounding the wound is present. No maceration of the skin o f the periwound is noted. A dorsalis pedis pulse is easily palpable on the left. Mild to moderate e deborah of the left foot and lower leg is present on exam today. Mild to moderate edema of the right lo wer extremity is also present on today's exam. Discoloration of the skin of the right and left lower legs is present secondary to hemosiderin deposition. ASSESSMENT AND PLAN: 1. Chronic venous hypertension with ulceration. Silverlon, Webril, and 3M Coban 2-layer compression system will be applied to the wound of the left anterior lower leg today. No antibiotics will be pr escribed today based upon the appearance of the wound. I will see Ms. Mosqueda again in 1 week. The patient has been asked to keep the compression wrap applied in clinic today clean and dry, and intact until her followup visit in 1 week. The patient understands and is in agreement with the preceding treatment plan. 2. Crohn's disease. 3. Hypertension. 4. Diabetes mellitus. 5. Gastroesophageal reflux disease. 6. Hypothyroidism. 7. Asthma. 8. Obstructive sleep apnea. 9. History of headache. 10. History of "mini strokes."
== END 2017-10-08 07:51 | disposition home or self-care (01) ==
LOC: WCC 07:50
PROVIDERS: ATTEND Family Medicine
DX: I87.312 Chronic venous hypertension (idiopathic) with ulcer of left lower extremity (principal); E11.622 Type 2 diabetes mellitus with other skin ulcer; L97.929 Non-pressure chronic ulcer of unspecified part of left lower leg with unspecified severity; K50.90 Crohn's disease, unspecified, without complications; K21.9 Gastro-esophageal reflux disease without esophagitis; E03.9 Hypothyroidism, unspecified; J45.909 Unspecified asthma, uncomplicated; G47.33 Obstructive sleep apnea (adult) (pediatric); Z86.73 Personal history of transient ischemic attack (TIA), and cerebral infarction without residual deficits
CPT/HCPCS: 29581; 36416; 99203; G0463

== ENCOUNTER 2017-10-15 10:34 | Outpatient (CLI) | payer OTHER ==
--- NOTE | 2017-10-15 11:08 | PRG ---
DATE OF SERVICE: 10/15/2017 HISTORY: Ms. Ronda Mosqueda is a very pleasant 62-year-old who presents to the Wound Center for tera luation of a wound of the left anterior lower leg subsequent to incision and drainage. The patient p reviously stated that after a fall while getting out of the tub, she developed swelling and bruising of her left lower leg. The patient stated that she was seen in Urgent Care and x-rays were obtained which showed no evidence of a fracture. Because of continued swelling of her left lower leg, the pat pao was seen in the Emergency Department here at [facility] and an ultrasound revealed a hematoma for which the patient underwent incision and drainage. The patient was subseque ntly admitted to [facility] for cellulitis. At a followup visit with Dr. Floyd jones, the patient was referred to the Wound Center for further evaluation and treatment. The taz troy stated at the time of her initial presentation to the Wound Center that she continued to have pain of her left lower leg along with continued drainage from the wound of her left anterior lower leg fr om incision and drainage. After being seen in the Wound Center, Silverlon, Webril, and 3M Coban 2 la guanako compression system were applied to the left anterior lower leg wound. PHYSICAL EXAMINATION: VITAL SIGNS: Temperature 98.3, pulse 97, respirations 22, blood pressure 142/83. Accu-Chek 180. EXTREMITIES: The wound of the left anterior lower leg measures approximately 0.7 x 0.3 cm. No purul ent drainage is associated with the wound. No erythema of the skin surrounding the wound is present. No maceration of the skin of the periwound is noted. A dorsalis pedis pulse is easily palpable on the left. No significant edema of the left foot or lower leg is present on exam today. Mild to mode rate edema of the right lower extremity is present on today's exam. Discoloration of the skin of the right and left lower legs is present secondary to hemosiderin deposition. ASSESSMENT AND PLAN: 1. Chronic venous hypertension with ulceration. Silverlon, Webril, and the 3M Coban two-layer compr ession system will be applied to the wound of the left anterior lower leg today. The ulceration has almost healed completely and Ms. Mosqueda will be discharged from clinic today with followup on a p.r. n. basis. The patient has been instructed to discontinue the compression wrap in 1 week. The patien t has also been given a prescription for compression garments, knee high, open or closed toe, to yiel d a compression of 20-30 mmHg. The patient has been told that she should apply the garments each mor sudhakar and remove the garments each night. The patient and her understand and are in agreement with the preceding treatment plan. 2. Crohn's disease. 3. Hypertension. 4. Diabetes mellitus. 5. Gastroesophageal reflux disease. 6. Hypothyroidism. 7. Asthma. 8. Obstructive sleep apnea. 9. History of headaches. 10. History of "mini strokes".
[2017-10-15] MEDS ORDERED: Sodium Chloride 0.9% 15 ML NEB ONE (18:02)
== END 2017-10-15 10:35 | disposition home or self-care (01) ==
LOC: WCC 10:34
PROVIDERS: ATTEND Family Medicine
DX: I87.302 Chronic venous hypertension (idiopathic) without complications of left lower extremity (principal); K50.90 Crohn's disease, unspecified, without complications; E11.9 Type 2 diabetes mellitus without complications; K21.9 Gastro-esophageal reflux disease without esophagitis; E03.9 Hypothyroidism, unspecified; G47.33 Obstructive sleep apnea (adult) (pediatric); R51 Headache; Z86.73 Personal history of transient ischemic attack (TIA), and cerebral infarction without residual deficits; Z87.2 Personal history of diseases of the skin and subcutaneous tissue
CPT/HCPCS: 29581; A4218

== ENCOUNTER 2017-11-13 08:57 | Day surgery (SDC) | payer OTHER ==
[2017-11-13] MEDS ORDERED: Sodium Chloride 0.9% 20 ML ONE (09:09)
[2017-11-13] MEDS ORDERED: diphenhydrAMINE 50 MG/ML VIAL IVP PRN (09:43)
[2017-11-13] MEDS ORDERED: Acetaminophen 500 MG TAB PO PRN (09:44)
[2017-11-13] MEDS ORDERED: diphenhydrAMINE 25 MG CAP PO SCH (09:45)
[2017-11-13] MEDS ORDERED: Acetaminophen 500 MG TAB PO SCH (09:45)
[2017-11-13] MEDS ORDERED: diphenhydrAMINE 50 MG/ML VIAL IVP SCH (09:45)
[2017-11-13] MEDS ORDERED: Sodium Chloride 0.9% 1,000 ML IV SCH (09:45)
[2017-11-13] MEDS ORDERED: INFLIXIMAB DYYB IV SCH (10:30)
[2017-11-13] MEDS ORDERED: SODIUM CHLORIDE 0.9% IV SCH (10:30)
[2017-11-13 10:39] VITALS: BP 188/114; TEMP 98.6
== END 2017-11-13 17:20 | disposition home or self-care (01) ==
LOC: ONC/OP 08:57
PROVIDERS: ATTEND Internal Medicine Gastroenterology
DX: K50.90 Crohn's disease, unspecified, without complications (principal)
CPT/HCPCS: 99211; A4216; G0463; J1642; J1745; J7050

== ENCOUNTER 2018-01-07 11:10 | Outpatient (CLI) | payer OTHER ==
--- NOTE | 2018-01-07 12:19 | RAD ---
LEFT HIP 2 VIEWS: Date: 01/07/18 COMPARISON: None. HISTORY: Left hip pain with fall. FINDINGS: No displaced fracture or evidence of dislocation. Mild superior joint space narrowing. Mild lateral a cetabular osteophyte formation. IMPRESSION: No acute osseous abnormality. POS: RIKKI
== END 2018-01-07 11:11 | disposition home or self-care (01) ==
LOC: BICRAD 11:10
PROVIDERS: ATTEND Family Medicine
DX: M25.552 Pain in left hip (principal)

== ENCOUNTER 2018-01-22 10:42 | Day surgery (SDC) | payer OTHER ==
[2018-01-22] MEDS ORDERED: Acetaminophen 500 MG TAB PO SCH (11:30)
[2018-01-22] MEDS ORDERED: diphenhydrAMINE 25 MG CAP PO SCH (11:30)
[2018-01-22] MEDS ORDERED: Sodium Chloride 0.9% 20 ML ONE (11:35)
[2018-01-22] MEDS ORDERED: SODIUM CHLORIDE 0.9% IV SCH (12:00)
[2018-01-22] MEDS ORDERED: INFLIXIMAB DYYB IV SCH (12:00)
[2018-01-22 16:09] VITALS: BP 136/85; TEMP 97.5
== END 2018-01-22 16:15 | disposition home or self-care (01) ==
LOC: ONC/OP 10:42
PROVIDERS: ATTEND Internal Medicine Gastroenterology
DX: K50.10 Crohn's disease of large intestine without complications (principal)
CPT/HCPCS: 96413; 96415; J1642; J1745; J7050

== ENCOUNTER 2018-02-10 07:52 | Outpatient (CLI) | payer OTHER ==
--- NOTE | 2018-02-10 10:28 | CT ---
ABDOMEN AND PELVIC CT SCAN WITH IV CONTRAST: History: 62-year-old female with history of abdominal pain, low abdominal pain for three weeks. 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 Prior hysterectomy, cholecystectomy, and appendectomy and prior small bowel obstruction . Comparison: 07-12-13 FINDINGS: The lung bases appear clear. There is borderline thickening of the pericardium. Status post cholecyst ectomy. Liver, pancreas, and spleen are unremarkable. Both right and left adrenal glands are borderli ne enlarged, left sided greater than right, without focal mass. Bilateral renal cysts. Opaque pill wi thin the small bowel. No evidence for large or small bowel obstruction. Little change from 07-12-13. IMPRESSION: No significant acute process in the abdomen or pelvis. Other findings as above. POS: DEVON
[2018-02-10] MEDS ORDERED: Iopamidol 370 76% 100 ML VIAL ONE (16:44)
== END 2018-02-10 07:53 | disposition home or self-care (01) ==
LOC: BICCT 07:52
PROVIDERS: ATTEND Internal Medicine Gastroenterology
DX: K50.90 Crohn's disease, unspecified, without complications (principal); R10.84 Generalized abdominal pain; K59.09 Other constipation; R63.5 Abnormal weight gain; G89.4 Chronic pain syndrome; F31.9 Bipolar disorder, unspecified; N28.1 Cyst of kidney, acquired; K63.9 Disease of intestine, unspecified; Z90.49 Acquired absence of other specified parts of digestive tract
CPT/HCPCS: 74177

== ENCOUNTER 2018-03-18 07:04 | Inpatient (IN) | payer OTHER ==
[2018-03-18] MEDS ORDERED: Pantoprazole 40 MG VIAL ONE (07:40)
[2018-03-18] MEDS ORDERED: Ondansetron PF 4 MG/2 ML Vial ONE (07:40)
[2018-03-18] MEDS ORDERED: Dicyclomine 20 MG TAB ONE (07:40)
[2018-03-18 07:44] LABS: #Eosinphils 0.1 thou/uL (0.0-0.7); #Lymphocytes 1.5 thou/uL (1.20-3.40); #Monocytes 0.4 thou/uL (0.11-0.59); #Neutrophils 4.3 thou/uL (1.40-6.50); %Basophils 0.7 % (0.0-1.0); %Eosinophils 1.5 % (0.0-10.0); %Lymphocytes 23.9 % (21.0-51.0); %Monocytes 6.1 % (0.0-10.0); %Neutrophils 67.8 % (42.0-75.0); Hemoglobin 14.9 g/dL (12.0-16.0); Mean Corpuscular Hemoglobin 33.6 pg (27.0-31.0); Mean Platelet Volume 7.2 fL (7.4-10.4); Platelet Count 292 thou/uL (130-400); RBC Distribution Width 14.6 % (11.5-14.5); Red Blood Cell (RBC) Count 4.42 mill/uL (4.20-5.40); White Blood Cell (WBC) Count 6.3 thou/uL (4.8-10.8)
[2018-03-18 08:04] LABS: ALT (SGPT) 15 U/L (8-55); AST (SGOT) 22 U/L (5-34); Albumin 3.4 g/dL (3.4-4.8); Alkaline Phosphatase 243 U/L (40-150); Anion Gap 18 mmol/L (10-20); BUN (Urea Nitrogen) 31 mg/dL (9.8-20.1); Bilirubin, Total 0.2 mg/dL (0.2-1.2); Calc. Creatinine Clearance 0 mL/min (70-130); Calcium 9.3 mg/dL (7.8-10.44); Carbon Dioxide 22 mmol/L (23-31); Chloride 104 mmol/L (98-107); Estimated GFR-MDRD 32; Globulin 4.4 g/dL (2.4-3.5); Glucose 167 mg/dL (80-115); Lipase 499 U/L (8-78); Potassium 3.5 mmol/L (3.5-5.1); Protein, Total 7.8 g/dL (6.0-8.3); Sodium 140 mmol/L (136-145)
--- NOTE | 2018-03-18 09:21 | CT ---
CT ABDOMEN AND PELVIS: Date: 03/18/18 COMPARISON: 02/10/18. HISTORY: Right upper quadrant pain and nausea. TECHNIQUE: Axial CT imaging is obtained at 5 mm intervals from lung bases through pubic symphysis with IV contra st. Coronal reformatted imaging obtained. FINDINGS: Lack of oral contrast limits assessment of the bowel. Imaged lung bases demonstrate no acute findings. No free intraperitoneal air. Cholecystectomy clips a re present. Hypodensity is noted throughout the hepatic parenchyma, evidence of steatosis. The spleen is unremarkable, as are the adrenal glands. The pancreatic head/uncinate process is enlarged, and there is fluid adjacent to the enlarged uncinat e process and pancreatic head, including fluid insinuating between the duodenum and the pancreatic he ad. Pancreatic parenchyma demonstrates normal enhancement. No gas is noted in this region. The kidney s demonstrate no acute findings. There are multiple small hypodensities noted within the left kidney, some of which are too small to characterize, likely on the basis of multiple small cysts, similar wh en compared to the 02/10/18 examination. Uterus appears surgically absent. No evidence for bowel inflammatory change or obstruction. Scattered atherosclerotic calcification of the infrarenal abdominal aorta and its branches. No adenopathy is noted in the abdomen or pelvis, and no acute osseous abnormality is noted. Multileve l lower lumbar spine facet hypertrophic change present. IMPRESSION: Findings most consistent with acute pancreatitis involving the head and uncinate process. Correlation with pancreatic laboratory assessment advised. A degree of secondary duodenitis is suspected. Peptic ulcer disease in the proper clinical setting cannot be fully excluded. POS: DEVON
[2018-03-18] MEDS ORDERED: Fentanyl 100 MCG/2 ML VIAL ONE (09:35)
[2018-03-18 09:57] LABS: Bilirubin Negative (Negative); Blood, Urine Negative (Negative); Clarity CLEAR (Clear); Glucose, Urine (Dipstick) 250 mg/dL (Negative); Leukocyte Negative (Negative); Nitrite Negative (Negative); Protein, Urine (Dipstick) Negative (Neg-Trace); Specific Gravity, Urine 1.014 (1.002-1.036); Urobilinogen 0.2 mg/dL (0.2-1.0)
[2018-03-18] MEDS ORDERED: hydrALAZINE 20 MG/ML VIAL ONE (10:22)
[2018-03-18] MEDS ORDERED: Ondansetron ODT 4 MG TAB SL PRN (11:27)
[2018-03-18] MEDS ORDERED: Sodium Chloride 0.9% 1,000 ML IV SCH (11:27)
[2018-03-18] MEDS ORDERED: Acetaminophen 325 MG TAB PO PRN (11:27)
[2018-03-18] MEDS ORDERED: Ondansetron PF 4 MG/2 ML Vial IVP PRN (11:27)
[2018-03-18] MEDS ORDERED: Acetaminophen 650 MG Suppository PR PRN (11:30)
[2018-03-18] MEDS ORDERED: Morphine 4 MG/ML VIAL SLOW IVP PRN (11:39)
[2018-03-18 11:51] VITALS: BMI 38.2
[2018-03-18 12:47] LABS: Iron 79 ug/dL (50-170); Iron Binding Capacity, Total 304 mcg/dL (265-497)
[2018-03-18] MEDS: Morphine 4 MG/ML VIAL SLOW IVP PRN (13:48)
[2018-03-18] MEDS ORDERED: Iopamidol 370 76% 50 ML VIAL FS ONE (16:49)
[2018-03-18] MEDS ORDERED: Dextrose 5% in Water 1,000 ML IV PRN (18:18)
[2018-03-18] MEDS: Pantoprazole 40 MG VIAL IVP SCH (20:02)
[2018-03-18] MEDS: Sodium Chloride 0.9% 1,000 ML IV SCH ×2 (20:05→22:58)
--- NOTE | 2018-03-18 20:39 | HP ---
PRIMARY CARE PHYSICIAN: Dr. Andrade. GI PHYSICIAN: Dr. Mansfield. CHIEF COMPLAINT: Abdominal pain. HISTORY OF PRESENT ILLNESS: Ms. Mosqueda is a very pleasant 62-year-old lady, who reported to the emergency room this morning after she started having abdominal pain about 3:00 a.m. and reports some nausea. Denies any vomiting or diarrhea. Reports that the pain is mostly epigastric and right upper quadrant, although she does have some diffuse tenderness on palpation. The patient does report that her last bowel movement was the day before yesterday and reports that was normal. Denies any black or tarry stool. Denies any stool changes. Reports a history of prior cholecystectomy, Crohn's, ulcerative colitis, GERD, type-2 diabetes, hypertension. She has also had an appendectomy in the past. The patient underwent a CT of the abdomen and pelvis while in the emergency room and that showed findings most consistent with acute pancreatitis involving the head and uncinate process. The degree of secondary duodenitis is suspected. Peptic ulcer disease in the proper clinical setting cannot be fully excluded. The patient also had a lipase of 499, alkaline phosphatase was 243, globulin 4.4. Based on lab imaging and the patient's presentation, the patient was admitted to the observation unit for pancreatitis. The patient does report that she was diagnosed with pneumonia about 4 days ago and was started on a regimen of doxycycline, has had about 8 doses. PAST MEDICAL HISTORY: As above. Also, includes sleep apnea. Also, reports a psych history of bipolar and depression. PAST SURGICAL HISTORY: Includes abdominal surgery after a small bowel obstruction. Reports that about 6 inches of her small intestine was removed. Reports that she has had an appendectomy, cholecystectomy, hysterectomy. SOCIAL HISTORY: Denies alcohol use. Denies any drug use. Does use tobacco. Reports about a half-pack per day. Lives at home with her family. ALLERGIES: NONE. HOME MEDICATIONS: Include; 1. Lipitor 40 mg p.o. daily. 2. Rexulti 2 mg p.o. daily. 3. Catapres 0.3 mg p.o. b.i.d. 4. Doxepin 100 mg p.o. at bedtime. 5. Prilosec 40 mg p.o. daily. 6. Prozac 20 mg p.o. daily. 7. Gabapentin 300 mg p.o. at bedtime. 8. Remicade. 9. Levemir 12 units subcu b.i.d. 10. Losartan 100 mg p.o. daily. 11. Amitiza 24 mcg p.o. daily. 12. Latuda 40 mg p.o. at bedtime. 13. Trulance 3 mg p.o. daily. 14. Potassium chloride 10 mEq p.o. daily. 15. Seroquel 400 mg p.o. at bedtime. 16. Torsemide 100 mg p.o. daily. 17. Tramadol 50 mg p.o. q.4 hours as needed for pain. 18. Doxycycline 100 mg p.o. b.i.d. REVIEW OF SYSTEMS: CONSTITUTIONAL: The patient denies fevers or chills. EYES: Denies any eye redness. Denies any visual changes. ENT: Denies sore throat. Denies rhinorrhea. CARDIOVASCULAR: Denies chest pain. Denies palpitations. RESPIRATORY: Does report cough. Denies shortness of breath. GI: Reports abdominal pain primarily epigastric and right upper quadrant, and reports some nausea. Denies any vomiting, diarrhea, or constipation. : Denies dysuria. Denies . SKIN: Denies any skin changes. Denies any rash. NEUROLOGIC: Denies any focal or musculoskeletal changes. PSYCH: Denies any emotional lability. Denies hallucinations. PHYSICAL EXAMINATION: VITAL SIGNS: Blood pressure 163/107, pulse is 89, respirations are 18, O2 is 95 % on room air, temp is 98.4. CONSTITUTIONAL: The patient appears in some pain distress. Nontoxic appearing. HEENT: Head is atraumatic and normocephalic. Eyes, pupils are equally round and reactive to light. Sclerae are normal. ENT; mouth exam is normal. Mucous membranes are moist. NECK: Normal range of motion. Trachea is midline. RESPIRATORY: Breath sounds are clear. CARDIOVASCULAR: Regular rate and rhythm. Heart sounds are normal. ABDOMEN: Tender to palpation to the epigastric, central, right upper quadrant. Diffuse mild tenderness throughout the rest of the abdomen. Abdomen is soft. There is no guarding. EXTREMITIES: Upper extremities range of motion is normal. Motor strength is normal. Lower extremities range of motion is normal. Motor strength is normal. Pedal pulses are intact bilaterally. No edema is noted. NEURO: The patient is alert to person, place, and time. Speech is normal. SKIN: Warm, dry, and intact. PSYCH: Recent memory is normal. Has a normal affect. DIAGNOSTIC DATA: EKG in the ER shows normal sinus rhythm at 81 beats per minute. Conduction, ST and T-waves are normal. [place] is normal. Does have a prolonged QT. LABORATORY DATA: Pertinent labs; white blood cell count is 6.3, hemoglobin 14.9 , hematocrit 43.8, platelet count is 292. Chemistry: sodium 140, potassium 3.5, chloride 104, carbon dioxide 22, BUN is 31, creatinine is 1.93, glucose 167. Iron is 79, TIBC is 304, ferritin is 25. AST is 22, ALT is 15, alkaline phosphatase is 243. Troponin is undetectable. Albumin 3.4, globulin 4.4, lipase 499. Urine is negative except for glucose at 250. ASSESSMENT AND PLAN: 1. Pancreatitis. The patient will be kept n.p.o. for the time being. We will increase as tolerated. Nausea medications, Protonix, IV hydration will be continued. Pain medications as needed. 2. Hypertension. We will continue home medications>. 3. Diabetes. We will continue home medications. We will add a sliding scale. 4. Recent history of pneumonia. We will re-evaluate and treat accordingly. 5. DVT and GI prophylaxis will be started. Clinical course will be dependent on findings. Job ID: [id number] MTDD
--- NOTE | 2018-03-18 21:25 | PDOC.EVN ---
Event Note - Event Note Event Note: Patient was discussed with Krystina Cristobal. Patient evaluated. She continues to have some abdominal pain. She is very tender across the entire upper abdomen. She thinks she may have had pancreatitis 10 years ago. She has some duodenitis and evidence of pancreatitis on CT. Enzymes are consistent with that. Continue bowel rest, hydration and pain management . Consult GI in the setting of her Crohn's.
[2018-03-18] MEDS ORDERED: hydrALAZINE 25 MG TAB PO SCH (22:00)
[2018-03-18] MEDS ORDERED: Carvedilol 25 MG TAB PO SCH (22:00)
--- NOTE | 2018-03-18 23:13 | CON ---
DATE OF CONSULTATION: 03/18/2018 TYPE OF CONSULTATION: GI Inpatient. REQUESTING PHYSICIAN: Dr. Zarco. REASON FOR CONSULTATION: Pancreatitis. HISTORY OF PRESENT ILLNESS: Ronda Mosqueda is a 62-year-old woman, who is seen in the outpatient setting by my GI Colleague, Dr. Medardo Mansfield; he follows her for Crohn disease of the small and large intestine. Notably, the patient is known to be in remission from her Crohn disease, on Remicade infusions every 8 weeks. This is as of her last EGD and colonoscopy in April 2016. She has had some complications including intraabdominal adhesions. She had a lysis of adhesions performed in June 2016. She actually deals with chronic constipation, which Dr. Mansfield manages with Amitiza and other laxatives. She does continue to smoke cigarettes, but denies any alcohol use. She also has a significant history of diabetes, bipolar disorder, and hypertension, and her medication list is quite extensive. She is on daily acid suppression with Nexium. I also note her medication list says that she has been on doxycycline, which she started 4 days ago, but she is unsure of exactly why this was started. Ms. Mosqueda says that she had the acute onset of severe pain in the epigastrium, periumbilical area, and right upper quadrant, which started around 3 a.m. this morning and actually woke her from sleep. This became quite severe and has been fairly constant since then. It is associated with nausea, though no vomiting. She says her last normal bowel movement was a couple of days ago. She presented to the emergency department and has been hemodynamically stable, though a bit hypertensive. She was found to have a lipase elevation to 499, mild alkaline phosphatase elevation to 243, but otherwise normal LFTs, and a CT of the abdomen and pelvis demonstrated changes consistent with pancreatitis around the head and uncinate process of the pancreas with secondary duodenitis. There is no other evidence of bowel inflammation or obstruction, no lymphadenopathy. The patient is currently receiving morphine and IV fluids, feeling a little bit better with the analgesic and she is n.p.o. Notably, she has had a prior cholecystectomy. When I asked if she ever had a prior history of pancreatitis, she says she thinks she did, but she cannot remember any details regarding this, and I cannot really find anything in the medical record on it. There is no family history of pancreatitis. REVIEW OF SYSTEMS: Full review of systems including constitutional, head, eyes, ears, nose, throat, GI, , cardiovascular, respiratory, musculoskeletal, neurologic, and endocrine systems is negative except as noted in the HPI. PAST MEDICAL HISTORY: Crohn disease with small bowel resection, lysis of adhesions in June 2016; normal EGD and colonoscopy in April 2016, showing Crohn disease in remission; gastroesophageal reflux, chronic constipation, cholecystectomy, appendectomy, hysterectomy, hypertension, diabetes, coronary artery disease, obesity, tobacco abuse. SOCIAL HISTORY: She smokes a half a pack of cigarettes per day. She denies alcohol or drug use. FAMILY HISTORY: Negative for pancreatitis. ALLERGIES: NO KNOWN DRUG ALLERGIES. MEDICATIONS: 1. Farxiga 5 mg daily. 2. Gabapentin 300 mg twice daily. 3. Doxepin 100 mg daily. 4. Torsemide 100 mg daily. 5. Symbicort inhaler once daily. 6. Atorvastatin 40 mg daily. 7. Amitiza 24 mcg twice daily. 8. Seroquel 400 mg daily. 9. Clonidine patch 0.3 mg, twice daily. 10. Potassium chloride 10 mEq twice daily. 11. Nexium 40 mg daily. 12. Losartan 100 mg daily. 13. Hydralazine 100 mg 3 times daily. 14. Carvedilol 50 mg twice daily. 15. Nifedipine 90 mg daily. 16. Prozac 90 mg daily. 17. Levemir insulin 16 units twice daily. 18. Remicade infusion every 8 weeks. 19. Calcitriol 0.25 mcg twice daily. 20. Dexilant 30 mg daily. 21. Benzonatate 100 mg 3 times daily. 22. Doxycycline 100 mg twice daily (medication list says she started on 03/14/2018, four days ago). PHYSICAL EXAMINATION: VITAL SIGNS: Temperature 97.0, pulse 102, blood pressure 198/111, and 95% oxygen saturation on room air, respirations 24 per minute. GENERAL: Obese 62-year-old woman, lying in bed, in mild distress from abdominal discomfort. Mental; she is alert and oriented. She is pleasant and conversational. She can give detailed answers regarding current symptoms, but is not able to give much specificity with regard to reporting her medical history. SKIN: No jaundice. No rashes were palpable. EYES: No scleral icterus. Extraocular movements intact. ENT: Mucous membranes moist. No oral lesions. LYMPH: No submandibular or supraclavicular lymphadenopathy. Thyroid nontender to palpation. HEART: Regular rate and rhythm. LUNGS: Clear to auscultation bilaterally. ABDOMEN: Bowel sounds are hypoactive, but present. The abdomen is nondistended. It is soft, but tender to palpation in the periumbilical area, epigastrium, and right upper quadrant. There is no guarding or rebound tenderness. EXTREMITIES: No peripheral edema. VESSELS: Radial pulses 2+ bilaterally. NEURO: Cranial nerves 2 through 12 intact bilaterally. No focal deficits. LABORATORY STUDIES: WBC 6.3, hemoglobin 14.9, platelets 292. Sodium 140, potassium 3.5, BUN 31, creatinine 1.93; this appears to be a bit above her baseline 1.5 or so. Glucose 167. Iron studies normal with ferritin 25, iron 79, TIBC 304. Troponin is negative. Alkaline phosphatase is mildly elevated to 243, otherwise normal LFTs with total bilirubin 0.2, AST 22, ALT 15, albumin 3.4. Lipase is elevated to 499. Urinalysis shows elevated glucose, but is otherwise negative. IMAGING STUDIES: CT of the abdomen and pelvis demonstrates findings consistent with acute pancreatitis involving the head and uncinate process of the pancreas with a degree of secondary duodenitis. There is no other areas of small bowel inflammation, dilation, or evidence of small bowel obstruction. No lymphadenopathy. ASSESSMENT AND PLAN: 1. Acute pancreatitis, with secondary duodenitis. The etiology of her pancreatitis episode is unclear. She reports having pancreatitis in the past, but I cannot find documentation of this. She did have a cholecystectomy in the past for some reason, but her gallbladder is absent now. LFTs are essentially normal, so I doubt that this represents biliary pancreatitis. It would be reasonable to get an abdominal ultrasound at some point in this admission to evaluate the size of the common bile duct. It is possible that this may be iatrogenic. She did recently start a course of doxycycline and I am not exactly sure why, that should be held. Otherwise, continue supportive care as you are doing, n.p.o. status for now with IV fluid resuscitation and analgesia as needed. Trend the lipase and the LFTs daily. Also, agree with the IV PPI due to the secondary duodenitis. 2. History of small bowel Crohn disease. Note that this is considered to be in remission as of her 2017 EGD and colonoscopy, continuing on Remicade every [address] Mansfield follows her for this. There is no other apparent small bowel pathology on her admission CT scan. Thank you for the consultation. Please call anytime with questions or concerns. Job ID: [id number]
[2018-03-19] MEDS: Morphine 4 MG/ML VIAL SLOW IVP PRN (06:00)
--- NOTE | 2018-03-19 07:54 | ULT ---
SONOGRAM RIGHT UPPER QUADRANT: HISTORY: Abdominal pain. Pancreatitis. FINDINGS: Gallbladder is surgically absent. The common duct is 0.9 cm. Liver is diffusely echogenic without f ocal mass or intrahepatic biliary dilatation. A small amount of free fluid. Pancreas is mostly obsc ured. IMPRESSION: 1. Status post cholecystectomy. No evidence of biliary obstruction. 2. Hepatosteatosis. Minimal ascites. POS: [facility]
[2018-03-19 08:02] LABS: ALT (SGPT) 12 U/L (8-55); AST (SGOT) 22 U/L (5-34); Albumin 3.1 g/dL (3.4-4.8); Alkaline Phosphatase 233 U/L (40-150); Anion Gap 18 mmol/L (10-20); BUN (Urea Nitrogen) 31 mg/dL (9.8-20.1); Bilirubin, Total 0.5 mg/dL (0.2-1.2); Calc. Creatinine Clearance 48 mL/min (70-130); Calcium 8.6 mg/dL (7.8-10.44); Carbon Dioxide 21 mmol/L (23-31); Chloride 111 mmol/L (98-107); Estimated GFR-MDRD 34; Glucose 81 mg/dL (80-115); Lipase 1000 U/L (8-78); Potassium 4.6 mmol/L (3.5-5.1); Protein, Total 7.1 g/dL (6.0-8.3); Sodium 145 mmol/L (136-145)
[2018-03-19 08:05] LABS: #Eosinphils 0.1 thou/uL (0.0-0.7); #Lymphocytes 1.8 thou/uL (1.20-3.40); #Monocytes 1.4 thou/uL (0.11-0.59); #Neutrophils 10.6 thou/uL (1.40-6.50); %Eosinophils 0.6 % (0.0-10.0); %Neutrophils 76.4 % (42.0-75.0); Hemoglobin 15.7 g/dL (12.0-16.0); Mean Corpuscular HGB CONC 32.4 g/dL (32.0-36.0); Mean Corpuscular Volume 98.8 fL (78.0-98.0); Mean Platelet Volume 7.6 fL (7.4-10.4); Platelet Count 258 thou/uL (130-400); RBC Distribution Width 14.8 % (11.5-14.5); White Blood Cell (WBC) Count 13.9 thou/uL (4.8-10.8)
[2018-03-19] MEDS: Sodium Chloride 0.9% 1,000 ML IV SCH ×3 (08:47→22:09)
[2018-03-19] MEDS: Pantoprazole 40 MG VIAL IVP SCH ×2 (08:47→21:44)
[2018-03-19] MEDS: Enoxaparin Sodium 30 MG/0.3 ML SYRINGE SC SCH (08:47)
[2018-03-19] MEDS: Carvedilol 25 MG TAB PO SCH ×3 (08:48→21:47)
[2018-03-19] MEDS: cloNIDine 0.1 MG TAB PO SCH ×3 (08:48→21:48)
[2018-03-19] MEDS: hydrALAZINE 25 MG TAB PO SCH ×4 (08:48→21:47)
[2018-03-19 09:10] LABS: RBC Morphology Normal
[2018-03-19] MEDS ORDERED: Naloxone HCl 0.4 mg/ml Vial ONE (13:20)
[2018-03-19] MEDS: Dextrose 50% Abboject 50 ML SYRINGE SLOW IVP PRN ×2 (13:35→13:38)
--- NOTE | 2018-03-19 14:33 | CT ---
BRAIN CT WITHOUT IV CONTRAST: HISTORY: A 62-year-old female with a history of altered mental status with the patient becoming altered this m orning. FINDINGS: No focal mass or midline shift. No intraaxial or extraaxial hemorrhage. Minimal motion artifact thr ough the skull base region. Minimal ethmoid sinus mucosal disease. The mastoids are clear. IMPRESSION: Unremarkable brain CT. No mass, bleed, or other acute process. POS: [facility]
[2018-03-19 14:40] LABS: ALT (SGPT) 12 U/L (8-55); AST (SGOT) 21 U/L (5-34); Albumin 2.7 g/dL (3.4-4.8); Alkaline Phosphatase 211 U/L (40-150); Bilirubin, Direct 0.2 mg/dL (0.1-0.3); Bilirubin, Total 0.4 mg/dL (0.2-1.2); Protein, Total 6.8 g/dL (6.0-8.3)
[2018-03-19] MEDS ORDERED: FLUoxetine HCl 20 MG CAP PO SCH (16:00)
--- NOTE | 2018-03-19 16:17 | PRG ---
DATE OF SERVICE: 03/19/2018 SUBJECTIVE: The patient is awake, but obviously confused and incoherent. She appears to be comfortable. There is no nausea or vomiting. Family is at bedside. She is able to swallow medication. OBJECTIVE: VITAL SIGNS: Temperature is 99.0, blood pressure 124/92, pulse of 93. GENERAL: She is alert, but obviously confused and not coherent, not oriented to person, place, or time. HEENT: Show anicteric sclerae. Oropharynx is clear. NECK: Supple. CV: Shows normal S1 and S2. Regular rate and rhythm. CHEST: Shows a breath sound. Poor excursion. ABDOMEN: Protuberant, but no tympany. No distention. She does have faint bowel sounds throughout. There is some tenderness, but no guarding or rebound throughout the abdomen. EXTREMITIES: Do not show any edema. LABORATORY DATA: Sodium 145, potassium 4.6, chloride 111, CO2 of 22, creatinine 1.80, bilirubin 0.5, AST 22, ALT 19, alkaline phosphatase 233, lipase 1000. WBC is 13.9, hemoglobin 15.7, and platelet count of 258. ASSESSMENT: 1. Acute pancreatitis, unknown etiology. She is status post cholecystectomy, now with normal LFTs. Mild elevation of alkaline phosphatase is likely nonspecific. She has no history of alcohol consumption. There has been no new medication, although she is on many different medications with possible drug interaction. 2. Encephalopathy, likely combination of metabolic and perhaps drug withdrawals. 3. Crohn disease, has been in remission with Remicade infusion every 8 weeks. 4. Hypertension. 5. Diabetes. 6. Coronary artery disease. 7. Status post cholecystectomy/appendectomy/hysterectomy/small-bowel adhesiolysis for bowel obstruction. RECOMMENDATIONS: 1. Supportive care at the present time, we will increase the IV fluid hydration for her pancreatitis with background of renal insufficiency. No need for antibiotics at this point from pancreatitis standpoint. However, we would obtain blood culture given low-grade fever and leukocytosis. 2. We will restart her home psychotropic medication, antidepressant, and gabapentin as she can swallow. 3. We will follow closely for any developing complications from her pancreatitis. Job ID: [id number]
--- NOTE | 2018-03-19 19:44 | PDOC.PN ---
- Subjective Encounter Start Date: 03/19/18 Encounter Start Time: 08:30 Subjective: Patient examined, is somnulent but easily arousable and conversive -: Reports abdominal pain is better but still present -: Denies nausea or vomiting - Objective Resuscitation Status - Order Detail: 03/18/18 11:30 Resuscitation Status Routine Co-Sign Provider: Resuscitation Status: FULL: Full Resuscitation Discussed with: patient and Vital Signs & Weight: Vital Signs (12 hours) Temp Pulse Resp BP BP Pulse Ox 03/19/18 16:10 98.7 F 91 20 142/84 H 91 L 03/19/18 15:34 93 L 03/19/18 15:00 93 03/19/18 11:49 99.0 F 93 20 144/92 H 98 03/19/18 08:57 154/84 H 03/19/18 08:56 94 03/19/18 07:55 99.6 F 94 16 143/83 H 92 L Weight Weight 94.858 kg I&O: 03/18/18 03/19/18 03/20/18 06:59 06:59 06:59 Intake Total 1569 300 Output Total 1200 Balance 369 300 Result Diagrams: 03/19/18 07:21 03/19/18 07:21 Additional Labs: Accuchecks 03/19/18 03/19/18 03/19/18 14:52 13:37 10:52 POC Glucose 86 77 81 03/19/18 03/18/18 06:45 20:24 POC Glucose 84 92 Phys Exam - Physical Examination Constitutional: NAD HEENT: PERRLA, moist MMs Neck: no nodes, no JVD Respiratory: no wheezing, clear to auscultation bilateral Cardiovascular: RRR, no significant murmur Gastrointestinal: soft abdomen is TTP to epigastric region Musculoskeletal: no edema, pulses present Neurological: non-focal, normal sensation, moves all 4 limbs Psychiatric: normal affect Skin: no rash, normal turgor Dx/Plan (1) Pancreatitis Code(s): K85.90 - ACUTE PANCREATITIS WITHOUT NECROSIS OR INFECTION, UNSP Status: Acute (2) Bipolar disorder Code(s): F31.9 - BIPOLAR DISORDER, UNSPECIFIED Status: Chronic Qualifiers: Active/Remission status: remission status unspecified Qualified Code(s): F31.9 - Bipolar disorder, unspecified Comment: Continue home medication regimen (3) CAD (coronary artery disease) Code(s): I25.10 - ATHSCL HEART DISEASE OF [place] CORONARY ARTERY W/O ANG PCTRS Status: Chronic Qualifiers: Coronary Disease-Associated Artery/Lesion type: [place] artery [place] vs. transplanted heart: [place] heart Associated angina: without angina Qualified Code(s): I25.10 - Atherosclerotic heart disease of [place] coronary artery without angina pectoris (4) Crohns disease Code(s): K50.90 - CROHN'S DISEASE, UNSPECIFIED, WITHOUT COMPLICATIONS Status: Chronic Qualifiers: Gastrointestinal tract location: unspecified location Digestive disease complication type: unspecified complication Qualified Code(s): K50.919 - Crohn 's disease, unspecified, with unspecified complications Comment: on remicaid infusion [id number] (5) DM type 2 (diabetes mellitus, type 2) Status: Chronic Qualifiers: Diabetes mellitus detention insulin use: with intermodal customer service use Diabetes mellitus complication status: with kidney complications Diabetes mellitus complication detail: with chronic kidney disease Chronic kidney disease stage : stage 3 (moderate) Qualified Code(s): E11.22 - Type 2 diabetes mellitus with diabetic chronic kidney disease; N18.3 - Chronic kidney disease, stage 3 ( moderate); N18.3 - Chronic kidney disease, stage 3 (moderate); Z79.4 - senior care (current) use of insulin; Z79.4 - watermelon inspector (current) use of insulin; Z79.4 - senior care (current) use of insulin; Z79.4 - watermelon inspector (current) use of insulin (6) Diastolic heart failure Code(s): I50.30 - UNSPECIFIED DIASTOLIC (CONGESTIVE) HEART FAILURE Status: Chronic Qualifiers: Heart failure chronicity: acute on chronic Qualified Code(s): I50.33 - Acute on chronic diastolic (congestive) heart failure (7) Hypertension Code(s): I10 - ESSENTIAL (PRIMARY) HYPERTENSION Status: Chronic Qualifiers: Hypertension type: essential hypertension Qualified Code(s): I10 - Essential (primary) hypertension - Plan cont current plan of care GI consulted, patient to remain NPO for bowel rest, IV fluids ordered -: HTN PO meds continued, will continue to monitor -: Patient made an inpatient, will be moved off OBS unit. -: Lipase/WBC increased today, we will repeat in AM. * .
--- NOTE | 2018-03-19 20:01 | PDOC.EVN ---
Event Note - Event Note Event Note: Called by Oncology nurse on patient arrival from OBS unit. Patient very weak while attempting to transfer to bed from wheelchair, not answering commands. Went to see patient, last dose of Morphine this morning but did have 10mg of Morphine and 75mcg Fentanyl within the last 12 hours. Narcan 0.4mg given and patient became more alert, started answering questions. Blood Sugar checked, = 77, 25gm of Dextrose given. CT brain ordered, negative for acute process. Family /friends reports patient is not at baseline. VS are stable, O2 90% on RA, 96% after 2L NC. Patient has improved but not back to baseline. Dr. Zarco consulted and he saw patient as well. Dr. Mansfield also saw patient today. Patient is on over 20 medications, including medications for her bipolar and depression. Possible encephalitis type syndrome due to holding most of her home medications due to acute pancreatitis. Dr. Mansfield allowed patient to continue her home medications. Will continue to monitor.
[2018-03-19] MEDS ORDERED: Carvedilol 25 MG TAB PO SCH (21:00)
[2018-03-19] MEDS: Doxepin HCl 25 MG CAP PO SCH (21:46)
[2018-03-19] MEDS: Gabapentin 300 MG CAP PO SCH (21:47)
--- NOTE | 2018-03-19 22:18 | PDOC.EVN ---
Event Note - Event Note Event Note: Evaluated the patient when the AMS symptoms were reported. Discussed with Krystina and nurse. She did not respond dramatically to the narcan. On my assessment, she is encephalopathic. She is awake, but not make any eye contact. She can say he name, but she does not speak much otherwise. She does follow some commands. Spoke with her sister and friend. They have not seen her like this before. Her CT head was negative. NH4 is normal. VSS. Remainder of exam is consistent with previous. Persistent abdominal TTP. I suspect she may be having some encephalopathy related to the cessation of her psychotropic medications. She is on high doses of several of them. Discussed with Dr. Mansfield. He is ok with her taking po meds. I will resume them as reasonable. Consult Neurology. Called to check on patient again and she is stable.
[2018-03-20] MEDS: Sodium Chloride 0.9% 1,000 ML IV SCH ×4 (03:51→21:23)
[2018-03-20 04:40] LABS: ALT (SGPT) 11 U/L (8-55); AST (SGOT) 22 U/L (5-34); Albumin 2.7 g/dL (3.4-4.8); Alkaline Phosphatase 201 U/L (40-150); Anion Gap 13 mmol/L (10-20); BUN (Urea Nitrogen) 25 mg/dL (9.8-20.1); Bilirubin, Total 0.5 mg/dL (0.2-1.2); Calc. Creatinine Clearance 55 mL/min (70-130); Calcium 8.2 mg/dL (7.8-10.44); Carbon Dioxide 21 mmol/L (23-31); Chloride 115 mmol/L (98-107); Estimated GFR-MDRD 41; Globulin 3.8 g/dL (2.4-3.5); Glucose 74 mg/dL (80-115); Lipase 345 U/L (8-78); Potassium 4.2 mmol/L (3.5-5.1); Protein, Total 6.5 g/dL (6.0-8.3); Sodium 145 mmol/L (136-145)
[2018-03-20 04:48] LABS: #Eosinphils 0.1 thou/uL (0.0-0.7); #Lymphocytes 1.5 thou/uL (1.20-3.40); #Monocytes 1.5 thou/uL (0.11-0.59); #Neutrophils 13.6 thou/uL (1.40-6.50); %Basophils 0.1 % (0.0-1.0); %Eosinophils 0.3 % (0.0-10.0); %Lymphocytes 8.9 % (21.0-51.0); %Neutrophils 81.7 % (42.0-75.0); Mean Corpuscular HGB CONC 32.5 g/dL (32.0-36.0); Mean Corpuscular Hemoglobin 33.1 pg (27.0-31.0); Mean Platelet Volume 7.8 fL (7.4-10.4); Platelet Count 234 thou/uL (130-400); RBC Distribution Width 15.2 % (11.5-14.5); Red Blood Cell (RBC) Count 4.23 mill/uL (4.20-5.40); White Blood Cell (WBC) Count 16.7 thou/uL (4.8-10.8)
[2018-03-20] MEDS: Pantoprazole 40 MG VIAL IVP SCH ×2 (07:24→21:25)
[2018-03-20] MEDS: FLUoxetine HCl 20 MG CAP PO SCH (07:26)
[2018-03-20] MEDS: Carvedilol 25 MG TAB PO SCH ×2 (07:27→21:24)
[2018-03-20] MEDS: Gabapentin 300 MG CAP PO SCH ×2 (07:27→21:24)
[2018-03-20] MEDS: hydrALAZINE 25 MG TAB PO SCH ×3 (07:28→21:25)
[2018-03-20] MEDS: NIFEdipine XL 60 MG TAB PO SCH (07:30)
[2018-03-20] MEDS: cloNIDine 0.1 MG TAB PO SCH ×3 (07:30→21:24)
[2018-03-20] MEDS: Losartan 25 MG TAB PO SCH ×2 (07:31→11:06)
[2018-03-20] MEDS: Morphine 4 MG/ML VIAL SLOW IVP PRN ×2 (07:39→23:13)
[2018-03-20] MEDS: Enoxaparin Sodium 30 MG/0.3 ML SYRINGE SC SCH (07:41)
--- NOTE | 2018-03-20 08:39 | PRG ---
DATE OF SERVICE: SUBJECTIVE: The patient slept most of the night. She continues to be encephalopathic this morning. She is not verbally interactive. OBJECTIVE: VITAL SIGNS: Temperature 98.7, pulse 89, respirations 20, O2 saturation 93% on 2 L nasal cannula, BP 168/98. GENERAL APPEARANCE: Obese, age-appropriate female. She is generally encephalopathic. At one point, she did make eye contact and made beautiful smile, but then went back to minimal interaction. She is capable of sitting herself up fully on the side of the bed and actually stood for a second and sat back down on the bed. She will occasionally answer question minimally. ABDOMEN: Continues to demonstrate some tenderness across the epigastrium and she grimaces some when she is going from the seated back to lying position and such. Her pulse remains regular and strong. LUNGS: Clear bilaterally. EXTREMITIES: With only trace edema. LABORATORY DATA: White count 16.7, hemoglobin 14.0, platelets 234. Sodium 145, potassium 4.2, chloride 115, CO2 is 21, BUN 25, creatinine 1.56, glucose 74, alkaline phosphatase 201, lipase down to 345. IMPRESSION AND PLAN: 1. Acute pancreatitis. I spoke with Dr. Mansfeild yesterday, did not feel like this was a severe case and we were able to resume some of the patient's p.o. medications. Her numbers are improving. She still appears to be having some pain. She has been drinking a fair amount of water, which I believe is certainly appropriate. 2. Encephalopathy. The patient appears to have some type of global encephalopathy. She has no focal neurological deficits apparent in either her cranial nerves or in her extremities. She has a history of bipolar disorder and is on multiple psychotropic medications, which had to be briefly interrupted while we were treating her pancreatitis. We have started to resume some of those medications. This does not appear to be in normal attribute of her prior mental health issues according to her family members. Her ammonia level was normal. Her CT of the brain was normal. She is afebrile. She does have a bit of a leukocytosis which contribute more to the pancreatitis. Therefore, I am not sure at this point with the underlying etiology of the encephalopathy is other than possibly missing some of her medications which could have psychotropic effects. I am going to give her a bit of morphine now just because issue continues to appear to have some pain and believe it might be making her a bit more restless, do not want to cloud the picture for neurology evaluation, but I believe it is appropriate to give her some of that now. Neurology consultation is pending. 3. History of coronary artery disease, stable. 4. History of Crohn disease. I talked to Dr. Mansfield. He said this was actually in remission. 5. Diabetes mellitus, well-controlled. Blood sugars are well controlled in the desirable range. 6. History of diastolic heart failure. The patient's lung exam does not suggest significant pulmonary edema. However, we will try to get a chest x-ray on her today just to ensure she is not having any significant pulmonary issues exacerbating her mental status. 7. Hypertension. Resuming the patient's usual antihypertensives and she has p.r.n. medications as well. The patient has a long history of poorly controlled blood pressure. Job ID: [id number]
--- NOTE | 2018-03-20 13:06 | RAD ---
CHEST 1 VIEW: Date: 03/20/18 HISTORY: CHF. Dyspnea. COMPARISON: 01/23/16. FINDINGS: Cardiac silhouette is magnified and upper limits of normal in size. Shallow inspiration accentuates p ulmonary markings. Ill-defined infiltrate projects over the right lung base. Mediastinum is midline w ith right subclavian MediPort in place. No evidence of pneumothorax. IMPRESSION: Right lower lobe infiltrate. Clinical correlation regarding other signs and symptoms of right lower l obe pneumonitis required. Please consider continued radiographic follow-up. POS: [facility]
[2018-03-20] MEDS: Activase 2 MG VIAL CATH SCH (13:52)
[2018-03-20 14:46] LABS: Cardiac Risk 5.6 (Less than 4.5)
--- NOTE | 2018-03-20 15:22 | PRG ---
DATE OF SERVICE: 03/20/2018 SUBJECTIVE: Ms. Mosqueda has had variable variations in her mental status today. She will wake up at some degree and told her that she needs to urinate and then assist with transfer to the bedside commode, and at other times, she will not respond at all. She is noncommunicative with me at this point. OBJECTIVE: VITAL SIGNS: Temperature 98.4, blood pressure 167/98, and pulse 95. GENERAL: She is asleep. LUNGS: She has expiratory wheezes and at this time prolonged expiratory phase. HEART: Regular rate and rhythm without murmur. ABDOMEN: Soft. She is tender diffusely and grunts when I palpate her abdomen, but . Bowel sounds are present. EXTREMITIES: No lower extremity edema. LABORATORY DATA: White blood cell count 16.7, hemoglobin 14.0, and platelets 234. Creatinine 1.56, bilirubin 0.5, AST 22, ALT 11, alkaline phosphatase 201, and albumin 2.7. Lipase is down to 345 from 1000 yesterday. IMPRESSION: 1. Acute pancreatitis. This is idiopathic at this point without evidence of biliary pancreatitis or alcohol use. She is on Lipitor. I will send a triglyceride level, however, she has not had significantly elevated triglycerides in the past that suggests that this would be in etiology now. We will add a triglyceride level to her admission labs. We do have to consider pancreatic malignancy in a 62-year-old with new-onset pancreatitis and history of diabetes. However, CT scan on presentation did not show an obvious mass. She also had a CT scan of the abdomen and pelvis back on February 10 with IV contrast, which showed a normal pancreas at that time. She is on multiple medications and this might be the most likely source for her pancreatitis. None of the medications that she is on are just obviously the etiology for her pancreatitis. However, she did start doxycycline a few days before admission for her suspected pneumonia as an outpatient. Other medications that she is on had some degree of association, but not strong association with pancreatitis that include quetiapine, calcitriol, Nexium, and Lipitor. Medicine I would change now at this point is just to avoid the doxycycline, which she is already off. 2. She has an infiltrate in her right lower lung by x-ray. Her reports that she was started on antibiotics for her suspected pneumonia a few days prior to admission. It is unclear if this is related, however, with her altered mental status, aspiration has to be a consideration. She has been started on antibiotics here and she will be kept n.p.o. until she can safely swallow from a mental status standpoint. 3. Crohn disease appears to be in remission. She did have small bowel obstruction that required surgery back in May of 2016. Endoscopy at that time did not show any evidence of active Crohn's. RECOMMENDATIONS: Continue to follow trend of her labs and mental and clinical status. She will continue IV fluids. She will be n.p.o. until her mental status is adequate to take things by mouth. Job ID: [id number]
[2018-03-20] MEDS: hydrALAZINE 20 MG/ML VIAL SLOW IVP PRN ×2 (17:06→17:19)
[2018-03-20 17:39] LABS: Actual Bicarbonate (HCO3a) 20.3 mEq/L (22-28); Base Excess (BEa) -3.9 mEq/L (-2.0 to +3.0); CO2 Tension 34.3 mmHg (35.0-45.0); O2 Tension (PaO2) 63.5 mmHg (> 80.0); pH, Arterial 7.39 (7.35-7.45)
[2018-03-20 17:40] LABS: Calcium, Ionized 1.19 mmol/L (1.12-1.30); Carboxyhemoglobin (COHb) 1.7 gm% (0.0-3.0)
[2018-03-20 17:41] LABS: ALV-art Gradient 93.265 (0-20); Analyzer IN Cardio OR; Puncture Site RRA
--- NOTE | 2018-03-20 18:05 | CON ---
DATE OF CONSULTATION: 03/20/2018 REASON FOR CONSULTATION: Second opinion regarding altered mental status. HISTORY OF PRESENT ILLNESS: This is a 62-year-old female who has been hospitalized for pancreatitis. She was initially placed on observation on March 18. At that time, she was presenting with abdominal pain and nausea. She was held n.p.o., waiting for the pancreatitis to improve. She is on massive doses of psychiatric medication for bipolar disorder and had to have that held for about a day and a half. Since yesterday, she has been minimally responsive, although she did take her pills this morning, I believe. PAST MEDICAL HISTORY: 1. JOSE. 2. Bipolar disorder. 3. Depression. 4. Pancreatitis. PAST SURGICAL HISTORY: 1. Abdominal surgery for small bowel obstruction. 2. Appendectomy. 3. Cholecystectomy. 4. Hysterectomy. SOCIAL HISTORY: Smokes half pack per day. Does not abuse alcohol. Does not use illicit drugs. ALLERGIES: NONE. HOME MEDICATIONS: Numerous, they are listed in detail under the home medication section on HomeStay, listed, but not including doses and they include Demadex, Symbicort, ProAir, doxycycline, Tessalon, Dexilant, calcitriol, vitamin C, Coreg, nifedipine, hydralazine, Seroquel, losartan, Rexulti, Prozac, Nexium, Remicade, Levemir, Catapres, Seroquel, Amitiza, gabapentin, doxepin, Farxiga, and Lipitor. ALLERGIES: NONE. FAMILY MEDICAL HISTORY: Unremarkable. REVIEW OF SYSTEMS: Not obtainable as the patient has altered mental status. PHYSICAL EXAMINATION: VITAL SIGNS: Temperature 98.4, pulse 95, respiratory rate 20, O2 saturation 94% on 2 L, and blood pressure 168/107. GENERAL: The patient is lying in bed. She is some somewhat obstinate to deep painful stimuli. I had difficulty getting her to open her eyes, but I was able to do it manually with resistance on her part left the room that she was talking some. HEENT: Pupils are reactive. Sclerae anicteric. Oropharynx clear. NECK: No JVD. LUNGS: Fairly clear. CARDIAC: S1, S2. Regular. ABDOMEN: Mildly tender to palpation. EXTREMITIES: No edema. LABORATORY DATA: Sodium 145, potassium 4.5, chloride 115, CO2 of 21, BUN 25, creatinine 1.5, glucose 74, alkaline phosphatase 201, lipase 345. White blood cell count 16.7, hematocrit 43.1, and platelet count 234. ABG; pH 7.38, pCO2 of 34, pO2 of 63. X-ray suggested a right middle lobe infiltrate. ASSESSMENT: 1. Altered mental status - I think this is probably related to her being off her psychiatric medications. She does not appear overtly septic. Instead, she almost appears as if she is having some type of withdrawal response. 2. Right middle lobe pneumonitis. 3. Pancreatitis. RECOMMENDATIONS: 1. Continue with antibiotics. 2. Resume psychiatric medications as soon as possible. 3. Resume antihypertensives. 4. I agree with CT of the head for stroke workup. 5. Consider moving to ICU for nicardipine drip, she can take her antihypertensives. Job ID: [id number]
[2018-03-20] MEDS: Piperacillin/Tazobactam 3.375 GM in Sodium Chloride 0.9% 100 ML IVPB SCH (18:14)
--- NOTE | 2018-03-20 18:14 | CT ---
CT HEAD NONCONTRAST: 03/20/18 COMPARISON: 03/19/18. INDICATION: Altered mental status. FINDINGS: No evidence of intracranial hemorrhage, mass effect, midline shift, or ventriculomegaly. No acute flu id level of the imaged paranasal sinuses. There is mild scattered paranasal sinus mucosal thickening. Stable punctate hyperdensity of the anterior left lentiform nucleus which may relate to a remote lacu lisa infarction. IMPRESSION: No acute intracranial hemorrhage or mass effect. POS: DEVON
[2018-03-20] MEDS ORDERED: hydrALAZINE 20 MG/ML VIAL SLOW IVP SCH (18:45)
[2018-03-20] MEDS: Doxepin HCl 25 MG CAP PO SCH (21:24)
[2018-03-20] MEDS: niCARdipine HCl 25 MG in Sodium Chloride 0.9% 250 ML 240 ML IVPB SCH (22:02)
--- NOTE | 2018-03-20 22:04 | CON ---
DATE OF CONSULTATION: 03/20/2018 NEUROLOGY CONSULTATION REASON FOR REFERRAL: Altered mental status. PRESENT ILLNESS: This is a 62-year-old female who has a history of multiple medical problems, one of them is Crohn's disease. She came to the hospital for severe abdominal pain. She had some nausea, but no vomiting. She did not have any diarrhea or unusual bowel movements. Her is present and gives the history as the patient cannot. Her chronic medical problems include Crohn's, GERD, diabetes, and hypertension. She has also had bipolar disorder and depression and also sleep apnea. Her states that she used to use CPAP, but has not used it in a long time. SOCIAL HISTORY: She does not drink alcohol. She does smoke about a half a pack a day. REVIEW OF SYSTEMS: Unable to obtain due to the patient's mental status. FAMILY HISTORY: Positive for hypertension. REVIEW OF SYSTEMS: Unable to obtain due to patient's mental status. MEDICATIONS: Note that she is on multiple medications at home. Some of them are as follows: 1. Lipitor. 2. Catapres. 3. Doxepin. 4. Prilosec. 5. Prozac. 6. Gabapentin. 7. Remicade. 8. Levemir. 9. Losartan. 10. Amitiza. 11. Latuda. 12. Trulance. 13. Potassium chloride. 14. Seroquel 400 mg at night. 15. Torsemide. 16. Tramadol 50 mg a day. 17. Doxycycline 100 mg twice a day. PHYSICAL EXAMINATION: GENERAL: She is somnolent. Her states that earlier today, she was awake a little bit and asked to pee. VITAL SIGNS: Temperature is 98.4, respiratory rate 24, O2 saturation 94% on 2 L, blood pressure 168/107. HEENT: Negative. MENTAL STATUS: She does not follow commands. She is very somnolent. LUNGS: Some coarse breath sounds. She does not take a deep breath. HEART: No gallops. ABDOMEN: Not distended. EXTREMITIES: She has trace edema. SKIN: No rashes. JOINTS: No swelling. NEUROLOGICAL: She is somnolent. Cranial nerves 2 through 12 are normal. Pupils are 2 mm and reactive. She tries to squeeze her eyes shut when you try to open them to check her pupils. She does not follow any commands. Motor is 3/5 throughout. DTRs are 1+. Toes are downgoing. Sensation is grossly intact to light touch. Reports show that there was a CT of the head on 03/19/2018, which is negative. Chest x-ray on 03/20/2018 shows a right lower lobe infiltrate. Other labs showed a white count of 16.7, hemoglobin 14, hematocrit 43.1, platelets 234,000. Chemistry showing sodium of 145, potassium 4.2, chloride 115, CO2 of 21, BUN 25, creatinine 1.56. Alkaline phosphatase was 201. Ammonia level was normal at 14. Albumin was low at 2.7. Lipase was elevated at 345 on 03/20/2018. On 03/18/2018, it was 499 and on 03/19/2018, it was 1000 and on 03/20/2018, it was 345, normal is 8 to 78, so it is felt that she has pancreatitis. She had a triglyceride level of 101 and cholesterol of 84. IMPRESSION: Toxic metabolic encephalopathy. Really no signs of meningitis nor any signs of stroke or seizures. She maybe encephalopathic due to the pancreatitis and/or the pneumonia. Consider idiopathic pancreatitis. Note that she is on multiple medications, although it is unclear which medication could be doing this. Seroquel could possibly result in drug-induced pancreatitis, but she is on many medications. PLAN: We will check her blood gas and lipid profile and CPK. We will consider followup CT testing. Her pancreatitis and infections are being treated appropriately. Job ID: [id number]
[2018-03-21] MEDS ORDERED: Ziprasidone 20 MG VIAL ONE (00:44)
[2018-03-21] MEDS ORDERED: Ziprasidone 20 MG VIAL IM SCH (00:45)
[2018-03-21] MEDS ORDERED: Sterile Water 10 ML VIAL FS SCH (01:00)
[2018-03-21] MEDS: Piperacillin/Tazobactam 3.375 GM in Sodium Chloride 0.9% 100 ML IVPB SCH ×4 (01:38→17:23)
[2018-03-21] MEDS: Sodium Chloride 0.9% 1,000 ML IV SCH ×2 (02:05→11:42)
[2018-03-21 05:38] LABS: ALT (SGPT) 13 U/L (8-55); AST (SGOT) 25 U/L (5-34); Albumin 2.8 g/dL (3.4-4.8); Alkaline Phosphatase 198 U/L (40-150); Anion Gap 17 mmol/L (10-20); BUN (Urea Nitrogen) 23 mg/dL (9.8-20.1); Bilirubin, Total 0.7 mg/dL (0.2-1.2); CK (CPK) 107 U/L (29-168); Calc. Creatinine Clearance 62 mL/min (70-130); Calcium 8.5 mg/dL (7.8-10.44); Carbon Dioxide 18 mmol/L (23-31); Chloride 117 mmol/L (98-107); Estimated GFR-MDRD 47; Globulin 4.1 g/dL (2.4-3.5); Glucose 105 mg/dL (80-115); Potassium 3.6 mmol/L (3.5-5.1); Protein, Total 6.9 g/dL (6.0-8.3); Sodium 148 mmol/L (136-145)
[2018-03-21 05:59] LABS: Band 10 % (5-11); Hemoglobin 13.3 g/dL (12.0-16.0); Lymphocytes 8 % (21-51); MDiff Complete? YES; Mean Platelet Volume 8.4 fL (7.4-10.4); Monocytes 6 % (0-10); Neutrophil 76 % (42-75); Platelet Count 229 thou/uL (130-400); Platelet Morphology Comment Appears Adequate; RBC Distribution Width 14.9 % (11.5-14.5); Red Blood Cell (RBC) Count 4.16 mill/uL (4.20-5.40); White Blood Cell (WBC) Count 17.6 thou/uL (4.8-10.8)
[2018-03-21] MEDS: Morphine 4 MG/ML VIAL SLOW IVP PRN (08:05)
[2018-03-21] MEDS: niCARdipine HCl 25 MG in Sodium Chloride 0.9% 250 ML 240 ML IVPB SCH (08:14)
--- NOTE | 2018-03-21 09:02 | PRG ---
DATE OF SERVICE: 03/21/2018 SUBJECTIVE: The patient continues to be psychotic. She will periodically wake up. The most part, she will not respond to commands and is acting more or less catatonic. OBJECTIVE: VITAL SIGNS: Temperature 98.6, pulse 118, blood pressure 161/120. She is currently on a nicardipine drip. Goal blood pressure systolic between 160 and 180, 24-hour intake 357, output not quantitated. HEENT: Pupils reactive. Sclerae anicteric. Oropharynx clear. NECK: No JVD. LUNGS: Clear. CARDIAC: S1 and S2 regular without murmur. ABDOMEN: Soft, slightly tender to palpation. EXTREMITIES: No edema. CT of the head showed no acute findings. LABORATORY DATA: Sodium 148, potassium 3.6, chloride 117, CO2 of 18, BUN 23, creatinine 1.3, glucose 105, alkaline phosphatase 198. White blood cell count 17.6, hematocrit 41.6, and platelet count 229. ASSESSMENT: 1. This is a presumed psychotic break from her being off psychiatric medications while she had pancreatitis. 2. Possibility of underlying sepsis, although not indicative from workup so far. She does have subtle infiltrate indicating possible aspiration previously, but I doubt this is the reason for her decompensation. PLAN: 1. We need to place an NG tube, so that we can give her medications. 2. Continue nicardipine for blood pressure control. 3. Change IV fluid to half-normal saline since she is becoming hyponatremic. Job ID: [id number]
[2018-03-21] MEDS: Losartan 25 MG TAB PO SCH (09:25)
[2018-03-21] MEDS: cloNIDine 0.1 MG TAB PO SCH ×2 (09:25→20:53)
[2018-03-21] MEDS: Gabapentin 300 MG CAP PO SCH ×2 (09:26→20:54)
[2018-03-21] MEDS: FLUoxetine HCl 20 MG CAP PO SCH (09:26)
[2018-03-21] MEDS: NIFEdipine XL 60 MG TAB PO SCH (09:26)
[2018-03-21] MEDS: hydrALAZINE 25 MG TAB PO SCH ×3 (09:26→22:32)
[2018-03-21] MEDS: Doxepin HCl 25 MG CAP PO SCH ×2 (09:27→20:54)
[2018-03-21] MEDS: Pantoprazole 40 MG VIAL IVP SCH ×2 (09:27→20:54)
[2018-03-21] MEDS: Carvedilol 25 MG TAB PO SCH ×2 (09:30→20:53)
[2018-03-21] MEDS ORDERED: Doxepin HCl 25 MG CAP PO SCH (09:45)
[2018-03-21] MEDS: Sodium Chloride 0.45% 1,000 ML IV SCH ×2 (10:05→20:53)
[2018-03-21] MEDS: Enoxaparin Sodium 30 MG/0.3 ML SYRINGE SC SCH (11:39)
--- NOTE | 2018-03-21 12:06 | PRG ---
DATE OF SERVICE: 03/21/2018 SUBJECTIVE: Ms. Mosqueda became extremely confused, combative, and had psychosis last night and required restraints and transfer to the intensive care unit. Currently, she is awake, but not verbally interactive. She was restarted on some of her psychiatric medications or NG tube. OBJECTIVE: VITAL SIGNS: Temperature is 99.3, blood pressure 105/72, pulse 83. GENERAL: She is in no acute distress. She is awake, but not verbally interactive. She does fall back asleep at times. LUNGS: Clear to auscultation bilaterally. HEART: Regular rate and rhythm without murmur. ABDOMEN: Soft. She is somewhat distended without focal guarding. Bowel sounds are present. EXTREMITIES: No lower extremity edema. IMPRESSION: 1. Acute idiopathic pancreatitis, possibly medication induced. There is no evidence of biliary pancreatitis. Her triglycerides are negative. No history of alcohol use. Doxycycline is one possibility. She is also on additional medications listed yesterday that can be associated with pancreatitis, however, the association is not strong. There is no secondary organ failure. No evidence of more severe pancreatitis at this time. When her mental status is improved, she could potentially advance to clear liquids and then advance as tolerated based on her clinical course. I am unable to assess for continued abdominal pain at this point. She does not indicate any objective signs of pain presently. 2. Altered mental status and history of psychiatric disease that may have flared with abrupt withdrawal of her extensive psychiatric medications. Job ID: [id number]
--- NOTE | 2018-03-21 16:54 | PRG ---
DATE OF SERVICE: 03/21/2018 SUBJECTIVE: The patient continues to be very encephalopathic today. Her was at the bedside. He indicated that when he walked in, he said hello, and she looked at him and said "hello baby" and felt like she fully recognized him. She did receive a number of medications this morning after an NG tube was placed and she has been somnolent since. The patient had been moved to ICU last night because of hypertension, which we could not control with intermittent doses of IV medications since the patient had not been on her usual home regimen. At the time of my exam, the patient's blood pressure was in the 90s. She was off the nicardipine drip. OBJECTIVE: VITAL SIGNS: Currently, pulse 102, BP 140/98, respirations 24, O2 saturations 93% on room air. GENERAL APPEARANCE: The patient is obese. She is supine in the bed. She has NG tube in place. She appears to be sleeping, a bit tachypneic. She does not come fully awake, but will move around a bit with attempts at waking her with verbal and tactile stimuli. HEART: Regular, borderline tachycardic without murmurs. LUNGS: Clear bilaterally. ABDOMEN: Soft, nondistended. Bowel sounds are not present. She does not appear to be as tender today as she was previously. EXTREMITIES: Warm and dry with trace edema. LABORATORY DATA: White count 17.6, hemoglobin 13.3, platelets 229. Sodium 148, potassium 3.6, chloride 117, CO2 is 18, BUN 23, creatinine 1.38. LFTs, alkaline phosphatase is 198, otherwise normal. Blood cultures remain negative. IMPRESSION AND PLAN: 1. Encephalopathy. The patient's encephalopathy is of unclear etiology, likely possibilities include toxic encephalopathy secondary to acute pancreatitis versus withdrawal from some of her psychotropic medications versus psychiatric illness itself. I challenged the patient's again about the possibility of her drinking alcohol, because of the pancreatitis and the encephalopathy with tachycardia consistent with possible withdrawal, that he is quite firm that she was not a drinker and I certainly believe him in that. She has had an NG tube placed and all of her psychiatric medications have been resumed. The feels confident that she is better today than yesterday. 2. Acute pancreatitis, etiology is unclear. GI is following. Difficult to assess her as encephalopathic she is. 3. History of Crohn disease, apparently in remission. 4. History of coronary artery disease, stable. 5. Diabetes mellitus. Continue monitoring, covering as needed with sliding scale. 6. History of diastolic heart failure. So far, the patient does not appear to be in any decompensated state with this. 7. Hypertension. The patient had to be moved to the ICU for hypertensive urgency and started on a nicardipine drip that was off by this morning. She is back on her usual medicines. We will continue to monitor. 8. Disposition. The patient remains in the ICU. She has consults from Pulmonary Critical Care, Neurology, and GI. Job ID: [id number]
--- NOTE | 2018-03-21 21:52 | PRG ---
DATE OF SERVICE: 03/21/2018 NEUROLOGY FOLLOWUP NOTE SUBJECTIVE: This is a Neurology followup for altered mental status. The patient was sent to the ICU last night because she was still obtunded and her blood pressure was high. Her blood pressure is better today. Her psychiatric medications were on hold because she was n.p.o. because of pancreatitis and it was thought that some of her medications may have triggered the pancreatitis. In the night, she became very agitated and started throwing her legs over the side of the bed. An NG tube was inserted and her psychiatric medications were restarted. She also had received a dose of Geodon. Today, she is sedated. Reportedly, she did wake up earlier this morning and said hello to her . Her states that as far as he knows she has never had a diagnosis of schizophrenia and has never hallucinated or heard voices. He states that she is seeing a psychiatrist and she is on doxepin, Seroquel, and Prozac, and she has been on all of these for at least a year or 2. She also is under the care of media executive and she also has history of diabetes, sleep apnea, and hypertension. She has restless legs, for which he states she takes Neurontin. OBJECTIVE: She is very lethargic, but she has received some sedating medications. Pupils were 2 mm and reactive. She tries to squeeze her eyes shut when you try to open the eyelids to check her pupils. Motor, she does not follow any commands at this time. LABORATORY DATA: Noted that she had a CT of the brain last night, it was normal. There was some mild chronic small vessel disease. Other labs showed a sodium of 148, chloride 117, glucose 119, BUN 23, and creatinine 1.38. CPK was done, which was normal at 107. A blood gas done last night showed pCO2 of 34.3, and pO2 of 63.5. CURRENT MEDICATIONS: Include; 1. Tylenol. 2. Coreg. 3. Clonidine 0.3 mg twice a day. 4. Doxepin 100 mg every night. 5. Lovenox prophylaxis. 6. Prozac 40 mg a day. 7. Neurontin 300 mg twice a day. 8. Cozaar 100 mg a day. 9. Procardia 60 mg a day. 10. She is on piperacillin/tazobactam. 11. She is on Seroquel 400 mg at bedtime. IMPRESSION: Toxic metabolic encephalopathy with several possibly contributing causes, the pancreatitis, the pneumonia. Her antipsychotic and psychiatric medications were on hold due to her inability to take them orally, her obtundation, and the thought that her pancreatitis may be drug induced. She does not have a gallbladder and does not drink alcohol. Her psychiatric medicines have been restarted by NG tube now and her infections are being treated appropriately. Discussed in detail with the patient's and sister. Agree with monitoring the patient in the ICU. Neurology will follow up. Job ID: [id number]
[2018-03-22] MEDS: Morphine 4 MG/ML VIAL SLOW IVP PRN ×2 (03:26→17:51)
[2018-03-22 04:44] LABS: Anion Gap 14 mmol/L (10-20); BUN (Urea Nitrogen) 27 mg/dL (9.8-20.1); Calc. Creatinine Clearance 61 mL/min (70-130); Calcium 8.6 mg/dL (7.8-10.44); Carbon Dioxide 18 mmol/L (23-31); Chloride 118 mmol/L (98-107); Estimated GFR-MDRD 46; Glucose 104 mg/dL (80-115); Potassium 3.2 mmol/L (3.5-5.1); Sodium 147 mmol/L (136-145)
[2018-03-22] MEDS: Piperacillin/Tazobactam 3.375 GM in Sodium Chloride 0.9% 100 ML IVPB SCH ×4 (04:59→17:54)
[2018-03-22] MEDS: Sodium Chloride 0.45% 1,000 ML IV SCH ×2 (05:00→14:25)
[2018-03-22 06:23] LABS: Hemoglobin 12.9 g/dL (12.0-16.0); Mean Corpuscular HGB CONC 33.9 g/dL (32.0-36.0); Mean Corpuscular Hemoglobin 33.8 pg (27.0-31.0); Mean Corpuscular Volume 99.7 fL (78.0-98.0); Mean Platelet Volume 8.2 fL (7.4-10.4); Platelet Count 237 thou/uL (130-400); RBC Distribution Width 14.9 % (11.5-14.5); White Blood Cell (WBC) Count 13.8 thou/uL (4.8-10.8)
[2018-03-22 07:36] LABS: Band 13 % (5-11); Lymphocytes 8 % (21-51); MDiff Complete? YES; Monocytes 5 % (0-10); Neutrophil 74 % (42-75); Polychromasia SLIGHT = 2-3 cells (100X) (0-2/hpf)
--- NOTE | 2018-03-22 08:53 | PRG ---
DATE OF SERVICE: SUBJECTIVE: The patient is now awake and is alert. She is somewhat conversant with her at bedside. She was not oriented to place or date, but definitely is better than she has been. OBJECTIVE: VITAL SIGNS: Her temperature is 98.4, pulse is 101, blood pressure 183/100, O2 saturation 91%, respiratory rate 22. HEENT: Unremarkable. NECK: No JVD. CHEST: Clear. CARDIAC: S1 and S2 regular. ABDOMEN: Soft, nontender. EXTREMITIES: No edema. LABORATORY DATA: White blood cell count 13.8, hematocrit 37.9, platelet count 237. Sodium 147, potassium 3.2, chloride 118, CO2 of 18, BUN 27, creatinine 1.4, glucose 104. ASSESSMENT: 1. Probable Neurontin or antipsychotic withdrawal syndrome which is now better after placement of NG tube and administration of these medications. 2. Question of aspiration pneumonitis. 3. Pancreatitis. PLAN: Continue administration of medications through NG tube and leave in the ICU for the time being. Job ID: [id number]
[2018-03-22] MEDS: Enoxaparin Sodium 30 MG/0.3 ML SYRINGE SC SCH (09:53)
[2018-03-22] MEDS: cloNIDine 0.1 MG TAB PO SCH ×2 (09:53→20:24)
[2018-03-22] MEDS: Losartan 25 MG TAB PO SCH (09:54)
[2018-03-22] MEDS: hydrALAZINE 25 MG TAB PO SCH ×3 (09:54→20:28)
[2018-03-22] MEDS: Carvedilol 25 MG TAB PO SCH ×2 (09:54→20:28)
[2018-03-22] MEDS: Gabapentin 300 MG CAP PO SCH ×2 (09:55→20:26)
[2018-03-22] MEDS: FLUoxetine HCl 20 MG CAP PO SCH (09:55)
[2018-03-22] MEDS: NIFEdipine XL 60 MG TAB PO SCH (09:55)
[2018-03-22] MEDS: Pantoprazole 40 MG VIAL IVP SCH ×2 (09:57→20:23)
--- NOTE | 2018-03-22 10:33 | PDOC.PN ---
- Subjective Encounter Start Date: 03/22/18 Encounter Start Time: 11:00 Subjective: Patient more responsive and talkative this morning, very confused, -: doesn't know location or date. Reports abdominal pain and some -: nausea. - Objective Resuscitation Status - Order Detail: 03/18/18 11:30 Resuscitation Status Routine Co-Sign Provider: Resuscitation Status: FULL: Full Resuscitation Discussed with: patient and MAR Reviewed: Yes Vital Signs & Weight: Vital Signs (12 hours) Temp Pulse BP 03/22/18 09:55 94 189/106 H 03/22/18 09:54 101 H 189/106 H 03/22/18 09:53 189/106 H 03/22/18 00:00 98.4 F 03/21/18 22:32 94 119/85 Weight Weight 209 lb 2 oz Most Recent Monitor Data Heart Rate from ECG 91 NIBP 167/105 NIBP BP-Mean 125 Respiration from ECG 18 SpO2 93 I&O: 03/21/18 03/22/18 03/23/18 06:59 06:59 06:59 Intake Total 3457 2798 Output Total 2155 Balance 3457 643 Result Diagrams: 03/22/18 04:10 03/22/18 04:10 Additional Labs: Accuchecks 03/21/18 03/21/18 22:05 18:30 POC Glucose 99 119 H Phys Exam - Physical Examination Constitutional: NAD HEENT: moist MMs Respiratory: no wheezing, no rales, no rhonchi Cardiovascular: RRR, no significant murmur Gastrointestinal: soft, positive bowel sounds TTP diffusely, especially in [place] Neurological: non-focal, moves all 4 limbs Psychiatric: normal affect Deviation from normal: Oriented to person only Dx/Plan (1) Pancreatitis Code(s): K85.90 - ACUTE PANCREATITIS WITHOUT NECROSIS OR INFECTION, UNSP Status: Acute Qualifiers: Chronicity: acute Comment: Possibly medication induced, doxycycline held, GI following (2) Acute encephalopathy Code(s): G93.40 - ENCEPHALOPATHY, UNSPECIFIED Status: Acute Comment: Likely secondary to pancreatitis and chronic medication withdrawl, improved with restarting meds via NG tube. (3) DM type 2 (diabetes mellitus, type 2) Status: Chronic Qualifiers: Diabetes mellitus moth exterminator insulin use: with moth exterminator use Diabetes mellitus complication status: with kidney complications Diabetes mellitus complication detail: with chronic kidney disease Chronic kidney disease stage : stage 3 (moderate) Qualified Code(s): E11.22 - Type 2 diabetes mellitus with diabetic chronic kidney disease; N18.3 - Chronic kidney disease, stage 3 ( moderate); Z79.4 - senior living (current) use of insulin (4) Diastolic heart failure Code(s): I50.30 - UNSPECIFIED DIASTOLIC (CONGESTIVE) HEART FAILURE Status: Chronic Qualifiers: Heart failure chronicity: acute on chronic Qualified Code(s): I50.33 - Acute on chronic diastolic (congestive) heart failure (5) Hypertension Code(s): I10 - ESSENTIAL (PRIMARY) HYPERTENSION Status: Chronic Qualifiers: Hypertension type: essential hypertension Qualified Code(s): I10 - Essential (primary) hypertension (6) CAD (coronary artery disease) Code(s): I25.10 - ATHSCL HEART DISEASE OF [place] CORONARY ARTERY W/O ANG PCTRS Status: Chronic Qualifiers: Coronary Disease-Associated Artery/Lesion type: [place] artery [place] vs. transplanted heart: [place] heart Associated angina: without angina Qualified Code(s): I25.10 - Atherosclerotic heart disease of [place] coronary artery without angina pectoris - Plan cont current plan of care, continue antibiotics * . - Discharge Day Encounter end time: 11:30 Pulmonology Consult: Meds - Medications MAR Reviewed: Yes Medications: Current Medications Acetaminophen (Tylenol) 650 mg CA Q4H PRN PRN Reason: Headache/Fever/Mild Pain (1-3) Alteplase, Recombinant (Cathflo) 2 mg CATH ASDIR [facility] Last Admin: 03/20/18 13:52 Dose: 2 mg Carvedilol (Coreg) 25 mg PO BID [facility] Last Admin: 03/22/18 09:54 Dose: 25 mg Clonidine (Catapres) 0.3 mg PO BID [facility] Last Admin: 03/22/18 09:53 Dose: 0.3 mg Dextrose/Water (Dextrose 50%) 25 gm SLOW IVP PRN PRN PRN Reason: Hypoglycemia Last Admin: 03/19/18 13:35 Dose: 12.5 gm Doxepin HCl (Sinequan) 100 mg PO HS [facility] Last Admin: 03/21/18 20:54 Dose: 100 mg Enoxaparin Sodium (Lovenox) 30 mg SC 0900 [facility] Last Admin: 03/22/18 09:53 Dose: 30 mg Fluoxetine HCl (Prozac) 40 mg PO DAILY [facility] Last Admin: 03/22/18 09:55 Dose: 40 mg Gabapentin (Neurontin) 300 mg PO BID [facility] Last Admin: 03/22/18 09:55 Dose: 300 mg Glucagon (Glucagon) 1 mg IM PRN PRN PRN Reason: Hypoglycemia Hydralazine HCl (Apresoline) 10 mg SLOW IVP Q4H PRN PRN Reason: SBP > 180 and HR < 70 Last Admin: 03/20/18 17:19 Dose: 10 mg Hydralazine HCl (Apresoline) 100 mg PO TID [facility] Last Admin: 03/22/18 09:54 Dose: 100 mg Dextrose/Water (D5w) 1,000 mls @ 0 mls/hr IV .Q0M PRN PRN Reason: Hypoglycemia Piperacillin Sod/Tazobactam (Sod 3.375 gm/ Sodium Chloride) 100 mls @ 200 mls/ hr IVPB Q6HR [facility] Last Admin: 03/22/18 04:59 Dose: 100 mls Nicardipine HCl 25 mg/ Sodium (Chloride) 250 mls @ 0 mls/hr IVPB INF [facility]; Protocol Last Admin: 03/21/18 08:14 Dose: 250 mls Sodium Chloride (1/2 Normal Saline) 1,000 mls @ 100 mls/hr IV .Q10H [facility] Last Admin: 03/22/18 05:00 Dose: 1,000 mls Insulin Human Lispro (Humalog) 0 units SC .MILD SLIDING SCALE PRN PRN Reason: Mild Correctional Scale Losartan Potassium (Cozaar) 100 mg PO DAILY [facility] Last Admin: 03/22/18 09:54 Dose: 100 mg Morphine Sulfate (Morphine) 4 mg SLOW IVP Q4H PRN PRN Reason: Moderate to Severe Pain (6-10) Last Admin: 03/22/18 03:26 Dose: 4 mg Morphine Sulfate (Morphine) 2 mg SLOW IVP Q4H PRN PRN Reason: Breakthrough Pain Last Admin: 03/19/18 06:00 Dose: 2 mg Nifedipine (Procardia Xl) 60 mg PO DAILY [facility] Last Admin: 03/22/18 09:55 Dose: Not Given Pantoprazole Sodium (Protonix) 40 mg IVP Q12HR [facility] Last Admin: 03/22/18 09:57 Dose: 40 mg Quetiapine Fumarate (Seroquel) 400 mg PO HS [facility] Last Admin: 03/21/18 20:54 Dose: 400 mg Sodium Chloride (Flush - Normal Saline) 10 ml IVF PRN PRN PRN Reason: Saline Flush Last Admin: 03/21/18 09:27 Dose: 10 ml - Allergies Allergies/Adverse Reactions: Allergies Allergy/AdvReac Type Severity Reaction Status Date / Time No Known Drug Allergies Allergy Verified 08/19/17 23:42
--- NOTE | 2018-03-22 11:41 | PRG ---
DATE OF SERVICE: 03/22/2018 SUBJECTIVE: Ms. Mosqueda is more alert today. She will wake up and answer some questions. She states that she has no abdominal pain; however, she is tender with palpation. No nausea. She has her NG tube in place. She falls asleep when she is not stimulated. PHYSICAL EXAMINATION: VITAL SIGNS: Temperature 98.4, blood pressure 169/109, and pulse 103. GENERAL: She is in no acute distress. She is awake. She could tell me her name. She falls back asleep when she is not stimulated. LUNGS: Clear to auscultation bilaterally. HEART: Regular rate and rhythm without murmur. ABDOMEN: Soft. She does complain of tenderness to palpation, but this seems to be mild overall. There is no guarding. I do not hear bowel sounds. EXTREMITIES: No lower extremity edema. LABORATORY DATA: White blood cell count 13.8, hemoglobin 12.9, and platelets 237. Sodium 147, potassium 3.2, chloride 118, CO2 of 18, BUN 27, and creatinine 1.41. IMPRESSION: 1. Acute pancreatitis, possibly secondary to doxycycline, but otherwise this is idiopathic. She does have other medications that have been associated with pancreatitis, but this sensation is not strong. 2. Withdrawal from chronic psychiatric medications with psychosis the night before last and more encephalopathy or catatonic type behavior otherwise. She currently is becoming more interactive having restarted her psychiatric medications. RECOMMENDATIONS: When she is awake enough to do a speech study, she can evaluate her swallowing with a bedside study by Speech Pathology. When she is able to swallow safely, she can start on a clear liquid diet and then advance to a low-fat diet if she tolerates. Job ID: [id number]
[2018-03-22] MEDS: Ondansetron PF 4 MG/2 ML Vial IVP PRN (12:04)
--- NOTE | 2018-03-22 16:09 | PQF ---
CLINICAL DOCUMENTATION IMPROVEMENT CLARIFICATION FORM: ICD-10 Updated PLEASE DO AN ADDENDUM TO THE PROGRESS NOTE WITH ANY DOCUMENTATION UPDATES OR ADDITIONS AND CARRY THROUGH TO DC SUMMARY. THANK YOU. DATE: 03/22/18 ATTN: Dr. Varela Please exercise your independent, professional judgment in responding to the clarification form. Clinical indicators are provided on the bottom of this form for your review Please check appropriate box(s): Conflicting documentation was noted in the Medical Record, please clarify if patient is being treated/monitored for: [ X ] History of diastolic heart failure. [ ] Acute on chronic diastolic congestive heart failure. [ ] Other diagnosis [ ] Unable to determine In addition, please specify: Present on Admission (POA): [ X ] Yes [ ] No [ ] Unable to determine For continuity of documentation, please document condition throughout progress notes and discharge summary. Thank You. CLINICAL INDICATORS - SIGNS / SYMPTOMS/ LABS PN 03/21/18 (Haroldo): History of diastolic heart failure. So far, the patient does not appear to be in any decompensated state with this Pn 03/22/18 (Avery): Acute on chronic diastolic congestive heart failure. Consult 03/20 (Kwadwo): X-ray suggested a right middle lobe infiltrate RISK FACTORS H&P 03/18: Pancreatitis. HTN. DM. Recent hx of pneumonia. TREATMENT: Order 03/18: Coreg 25 mg po BID. Order 03/19/18: Cozaar 100mg po daily. Thank you, Gabi (This form is maintained as a part of the permanent medical record) 2015 [employer] All Rights Reserved Gabi Covington RN, BSN [email or web address] Office: [phone] [facility]
[2018-03-22] MEDS: Doxepin HCl 25 MG CAP PO SCH (20:26)
[2018-03-23] MEDS: Piperacillin/Tazobactam 3.375 GM in Sodium Chloride 0.9% 100 ML IVPB SCH ×5 (00:41→23:20)
[2018-03-23] MEDS: Morphine 4 MG/ML VIAL SLOW IVP PRN ×3 (02:16→20:50)
[2018-03-23] MEDS: Sodium Chloride 0.45% 1,000 ML IV SCH ×3 (02:18→23:19)
[2018-03-23 04:22] LABS: Anion Gap 15 mmol/L (10-20); BUN (Urea Nitrogen) 25 mg/dL (9.8-20.1); Calc. Creatinine Clearance 60 mL/min (70-130); Calcium 8.5 mg/dL (7.8-10.44); Carbon Dioxide 19 mmol/L (23-31); Chloride 116 mmol/L (98-107); Estimated GFR-MDRD 45; Glucose 78 mg/dL (80-115); Lipase 55 U/L (8-78); Potassium 3.4 mmol/L (3.5-5.1); Sodium 147 mmol/L (136-145)
[2018-03-23 04:31] LABS: Band 3 % (5-11); Eosinophils 1 % (0-10); Hemoglobin 12.3 g/dL (12.0-16.0); Lymphocytes 18 % (21-51); MDiff Complete? YES; Mean Corpuscular HGB CONC 33.5 g/dL (32.0-36.0); Mean Corpuscular Hemoglobin 33.4 pg (27.0-31.0); Mean Corpuscular Volume 99.7 fL (78.0-98.0); Mean Platelet Volume 7.7 fL (7.4-10.4); Monocytes 5 % (0-10); Neutrophil 73 % (42-75); Platelet Count 260 thou/uL (130-400); RBC Distribution Width 14.9 % (11.5-14.5); Red Blood Cell (RBC) Count 3.67 mill/uL (4.20-5.40); White Blood Cell (WBC) Count 11.7 thou/uL (4.8-10.8)
--- NOTE | 2018-03-23 09:44 | PRG ---
DATE OF SERVICE: 03/23/2018 SUBJECTIVE: The patient is better. She is awake. She is able to answer questions indicating that she is oriented. OBJECTIVE: VITAL SIGNS: Temperature 98.8, pulse 91, 24-hour intake HEENT: Unremarkable. NECK: No JVD. CHEST: Clear. CARDIAC: S1 and S2. Regular. ABDOMEN: Mildly tender to palpation. EXTREMITIES: No edema. LABORATORY DATA: White blood cell count 11.7, hematocrit 36.6, platelet count 216. Sodium 147, potassium 4.4, chloride 116, CO2 of 19, BUN 25, creatinine 1.4, and glucose 78. ASSESSMENT: 1. Altered mental status, which is improved. I think this is likely secondary to some type of withdrawal symptoms from being off for antipsychotic medication. 2. Question of aspiration pneumonitis. 3. Pancreatitis. PLAN: 1. She can be transferred out to medical. 2. Speech Therapy consulted to clear her for swallowing. 3. Start clear liquid diet. 4. Discontinue NG tube when she is able to swallow her pills. Job ID: [id number]
--- NOTE | 2018-03-23 09:48 | PDOC.PN ---
- Subjective Encounter Start Date: 03/23/18 Encounter Start Time: 15:00 Subjective: Patient more awake and clear. Reports mild abdominal pain. Tolerating -: clear liquids. Taking pills only one at a time now, so still crushing some -: and giving through NG tube due to large number. - Objective Resuscitation Status - Order Detail: 03/18/18 11:30 Resuscitation Status Routine Co-Sign Provider: Resuscitation Status: FULL: Full Resuscitation Discussed with: patient and MAR Reviewed: Yes Vital Signs & Weight: Vital Signs (12 hours) Temp 03/23/18 04:00 98.8 F 03/23/18 00:00 98.4 F Weight Weight 209 lb 2 oz Most Recent Monitor Data Heart Rate from ECG 93 NIBP 172/97 NIBP BP-Mean 122 Respiration from ECG 20 SpO2 94 I&O: 03/22/18 03/23/18 03/24/18 06:59 06:59 06:59 Intake Total 2798 3229 Output Total 2158 2340 270 Balance 643 889 -270 Result Diagrams: 03/23/18 03:50 03/23/18 03:50 Additional Labs: Accuchecks 03/23/18 03/22/18 03/22/18 03:49 22:03 16:09 POC Glucose 80 80 83 03/22/18 12:09 POC Glucose 82 Phys Exam - Physical Examination Constitutional: NAD HEENT: moist MMs Respiratory: no wheezing, no rales, no rhonchi Cardiovascular: RRR, no significant murmur Gastrointestinal: soft, positive bowel sounds TTP WESLEY Neurological: non-focal, moves all 4 limbs Psychiatric: normal affect, A&O x 3 Dx/Plan (1) Pancreatitis Code(s): K85.90 - ACUTE PANCREATITIS WITHOUT NECROSIS OR INFECTION, UNSP Status: Acute Qualifiers: Chronicity: acute Comment: Possibly medication induced, doxycycline held, GI following (2) Acute encephalopathy Code(s): G93.40 - ENCEPHALOPATHY, UNSPECIFIED Status: Acute Comment: Likely secondary to pancreatitis and chronic medication withdrawl, improved with restarting meds via NG tube. (3) DM type 2 (diabetes mellitus, type 2) Status: Chronic Qualifiers: Diabetes mellitus fdc insulin use: with intermodal customer service use Diabetes mellitus complication status: with kidney complications Diabetes mellitus complication detail: with chronic kidney disease Chronic kidney disease stage : stage 3 (moderate) Qualified Code(s): E11.22 - Type 2 diabetes mellitus with diabetic chronic kidney disease; N18.3 - Chronic kidney disease, stage 3 ( moderate); Z79.4 - watermelon inspector (current) use of insulin (4) Diastolic heart failure Code(s): I50.30 - UNSPECIFIED DIASTOLIC (CONGESTIVE) HEART FAILURE Status: Chronic Qualifiers: Heart failure chronicity: acute on chronic Qualified Code(s): I50.33 - Acute on chronic diastolic (congestive) heart failure (5) Hypertension Code(s): I10 - ESSENTIAL (PRIMARY) HYPERTENSION Status: Chronic Qualifiers: Hypertension type: essential hypertension Qualified Code(s): I10 - Essential (primary) hypertension (6) CAD (coronary artery disease) Code(s): I25.10 - ATHSCL HEART DISEASE OF [place] CORONARY ARTERY W/O ANG PCTRS Status: Chronic Qualifiers: Coronary Disease-Associated Artery/Lesion type: [place] artery [place] vs. transplanted heart: [place] heart Associated angina: without angina Qualified Code(s): I25.10 - Atherosclerotic heart disease of [place] coronary artery without angina pectoris - Plan cont current plan of care, continue antibiotics, PT/OT, speech therapy On Zosyn for possible aspiration pneumonitis -: Stable for transfer to floor -: Tolerating clears, NG tube out tomorrow if taking pills well * . - Discharge Day Encounter end time: 11:30 Pulmonology Consult: Meds - Medications MAR Reviewed: Yes Medications: Current Medications Acetaminophen (Tylenol) 650 mg MD Q4H PRN PRN Reason: Headache/Fever/Mild Pain (1-3) Alteplase, Recombinant (Cathflo) 2 mg CATH ASDIR [facility] Last Admin: 03/20/18 13:52 Dose: 2 mg Carvedilol (Coreg) 25 mg PO BID [facility] Last Admin: 03/22/18 20:28 Dose: 25 mg Clonidine (Catapres) 0.3 mg PO BID [facility] Last Admin: 03/22/18 20:24 Dose: 0.3 mg Dextrose/Water (Dextrose 50%) 25 gm SLOW IVP PRN PRN PRN Reason: Hypoglycemia Last Admin: 03/19/18 13:35 Dose: 12.5 gm Doxepin HCl (Sinequan) 100 mg PO [facility] Last Admin: 03/22/18 20:26 Dose: 100 mg Enoxaparin Sodium (Lovenox) 30 mg SC 0900 [facility] Last Admin: 03/22/18 09:53 Dose: 30 mg Fluoxetine HCl (Prozac) 40 mg PO DAILY [facility] Last Admin: 03/22/18 09:55 Dose: 40 mg Gabapentin (Neurontin) 300 mg PO BID [facility] Last Admin: 03/22/18 20:26 Dose: 300 mg Glucagon (Glucagon) 1 mg IM PRN PRN PRN Reason: Hypoglycemia Hydralazine HCl (Apresoline) 10 mg SLOW IVP Q4H PRN PRN Reason: SBP > 180 and HR < 70 Last Admin: 03/20/18 17:19 Dose: 10 mg Hydralazine HCl (Apresoline) 100 mg PO TID [facility] Last Admin: 03/22/18 20:28 Dose: 100 mg Dextrose/Water (D5w) 1,000 mls @ 0 mls/hr IV .Q0M PRN PRN Reason: Hypoglycemia Piperacillin Sod/Tazobactam (Sod 3.375 gm/ Sodium Chloride) 100 mls @ 200 mls/ hr IVPB Q6HR [facility] Last Admin: 03/23/18 05:05 Dose: 100 mls Nicardipine HCl 25 mg/ Sodium (Chloride) 250 mls @ 0 mls/hr IVPB INF [facility]; Protocol Last Admin: 03/21/18 08:14 Dose: 250 mls Sodium Chloride (1/2 Normal Saline) 1,000 mls @ 100 mls/hr IV .Q10H [facility] Last Admin: 03/23/18 02:18 Dose: 1,000 mls Potassium Chloride 10 meq/ (Device) 100 mls @ 100 mls/hr IVPB NOW [facility] Insulin Human Lispro (Humalog) 0 units SC .MILD SLIDING SCALE PRN PRN Reason: Mild Correctional Scale Losartan Potassium (Cozaar) 100 mg PO DAILY [facility] Last Admin: 03/22/18 09:54 Dose: 100 mg Morphine Sulfate (Morphine) 4 mg SLOW IVP Q4H PRN PRN Reason: Moderate to Severe Pain (6-10) Last Admin: 03/22/18 17:51 Dose: 4 mg Morphine Sulfate (Morphine) 2 mg SLOW IVP Q4H PRN PRN Reason: Breakthrough Pain Last Admin: 03/23/18 02:16 Dose: 2 mg Nifedipine (Procardia Xl) 60 mg PO DAILY [facility] Last Admin: 03/22/18 09:55 Dose: Not Given Ondansetron HCl (Zofran Odt) 4 mg PO Q6H PRN PRN Reason: Nausea/Vomiting Ondansetron HCl (Zofran) 4 mg IVP Q4H PRN PRN Reason: Nausea/Vomiting Last Admin: 03/22/18 12:04 Dose: 4 mg Pantoprazole Sodium (Protonix) 40 mg IVP Q12HR [facility] Last Admin: 03/22/18 20:23 Dose: 40 mg Quetiapine Fumarate (Seroquel) 400 mg PO HS [facility] Last Admin: 03/22/18 20:38 Dose: 400 mg Sodium Chloride (Flush - Normal Saline) 10 ml IVF PRN PRN PRN Reason: Saline Flush Last Admin: 03/21/18 09:27 Dose: 10 ml - Allergies Allergies/Adverse Reactions: Allergies Allergy/AdvReac Type Severity Reaction Status Date / Time No Known Drug Allergies Allergy Verified 08/19/17 23:42
[2018-03-23] MEDS ORDERED: Potassium Chloride 10 MEQ in Premix Bag 1 BAG IVPB SCH ×2 (10:00→10:30)
[2018-03-23] MEDS: cloNIDine 0.1 MG TAB PO SCH ×2 (10:22→21:27)
[2018-03-23] MEDS: NIFEdipine XL 60 MG TAB PO SCH (10:23)
[2018-03-23] MEDS: FLUoxetine HCl 20 MG CAP PO SCH (10:23)
[2018-03-23] MEDS: Carvedilol 25 MG TAB PO SCH ×2 (10:23→21:28)
[2018-03-23] MEDS: Pantoprazole 40 MG VIAL IVP SCH (10:24)
[2018-03-23] MEDS: Losartan 25 MG TAB PO SCH (10:24)
[2018-03-23] MEDS: Enoxaparin Sodium 30 MG/0.3 ML SYRINGE SC SCH (10:25)
[2018-03-23] MEDS: hydrALAZINE 25 MG TAB PO SCH ×3 (10:34→21:25)
[2018-03-23] MEDS: Gabapentin 300 MG CAP PO SCH ×2 (10:34→21:27)
[2018-03-23] MEDS: HumaLOG 300 UNITS/3 ML VIAL SC PRN (16:34)
--- NOTE | 2018-03-23 20:14 | PRG ---
DATE OF SERVICE: 03/23/2018 SUBJECTIVE: Ms. Mosqueda is much more interactive today. She has swallowed some of her pills and swallowing clear liquids well. She has no acute complaints otherwise. She has had no bowel movement for the last couple of days. OBJECTIVE: VITAL SIGNS: Temperature is 98.1, blood pressure 173/112, and pulse 95. GENERAL: She is in no acute distress. She is awake and alert today. LUNGS: Clear to auscultation bilaterally. HEART: Regular rate and rhythm. ABDOMEN: She does have mild tenderness diffusely without guarding. Her bowel sounds are present. She does report some underlying abdominal pain. EXTREMITIES: No lower extremity edema. IMPRESSION: 1. Acute pancreatitis. Clinically, she seems to be doing better, however, she still does report some pain. She is tolerating liquids well. Overall, the pancreatitis is idiopathic, however, one possibility is doxycycline, this was started a few days before the onset of the pancreatitis. She is on numerous other medications, several which have weak associations with pancreatitis. 2. Psychosis. She is back on her psychiatric medications and appears to be doing much better now. We should be able to advance her diet to a low fat diet tomorrow as speech path clears her for regular intake and hopefully discontinue the NG tube tomorrow. Of note, she did have an abdomen and pelvis CT on 03/18/2018 with contrast that showed no evidence of the pancreatic mass. RECOMMENDATIONS: Advance diet to a low-fat diet once cleared by Speech Pathology. Job ID: [id number]
[2018-03-23] MEDS: Doxepin HCl 25 MG CAP PO SCH (21:34)
[2018-03-24 04:41] LABS: Anion Gap 11 mmol/L (10-20); BUN (Urea Nitrogen) 22 mg/dL (9.8-20.1); Calc. Creatinine Clearance 59 mL/min (70-130); Calcium 8.4 mg/dL (7.8-10.44); Carbon Dioxide 22 mmol/L (23-31); Chloride 112 mmol/L (98-107); Estimated GFR-MDRD 44; Glucose 128 mg/dL (80-115); Potassium 3.5 mmol/L (3.5-5.1); Sodium 141 mmol/L (136-145)
[2018-03-24] MEDS: Morphine 4 MG/ML VIAL SLOW IVP PRN ×2 (05:03→09:10)
[2018-03-24] MEDS: Piperacillin/Tazobactam 3.375 GM in Sodium Chloride 0.9% 100 ML IVPB SCH ×4 (05:04→23:44)
[2018-03-24 05:07] LABS: Band 6 % (5-11); Eosinophils 3 % (0-10); Hemoglobin 12.1 g/dL (12.0-16.0); Lymphocytes 12 % (21-51); MDiff Complete? YES; Mean Corpuscular HGB CONC 33.1 g/dL (32.0-36.0); Mean Corpuscular Hemoglobin 32.9 pg (27.0-31.0); Mean Corpuscular Volume 99.6 fL (78.0-98.0); Mean Platelet Volume 7.8 fL (7.4-10.4); Monocytes 10 % (0-10); Neutrophil 69 % (42-75); Platelet Count 264 thou/uL (130-400); RBC Distribution Width 14.7 % (11.5-14.5); Red Blood Cell (RBC) Count 3.66 mill/uL (4.20-5.40); White Blood Cell (WBC) Count 12.6 thou/uL (4.8-10.8)
[2018-03-24] MEDS: Sodium Chloride 0.45% 1,000 ML IV SCH ×2 (06:39→17:16)
--- NOTE | 2018-03-24 08:09 | PDOC.PN ---
- Subjective Encounter Start Date: 03/24/18 Encounter Start Time: 10:30 Subjective: Improved mental status. Pain much better. Taking oral well per speech -: therapy. - Objective Resuscitation Status - Order Detail: 03/18/18 11:30 Resuscitation Status Routine Co-Sign Provider: Resuscitation Status: FULL: Full Resuscitation Discussed with: patient and MAR Reviewed: Yes Vital Signs & Weight: Vital Signs (12 hours) Temp Pulse BP 03/24/18 04:00 98.8 F 03/24/18 00:00 97.9 F 03/23/18 21:27 149/107 H 03/23/18 21:25 99 191/117 H Weight Weight 209 lb 2 oz Most Recent Monitor Data Heart Rate from ECG 94 NIBP 172/108 NIBP BP-Mean 129 Respiration from ECG 20 SpO2 92 I&O: 03/23/18 03/24/18 03/25/18 06:59 06:59 06:59 Intake Total 3229 3426 Output Total 2340 1850 Balance 889 1576 Result Diagrams: 03/24/18 04:15 03/24/18 04:15 Additional Labs: Accuchecks 03/24/18 03/24/18 03/23/18 04:14 00:53 16:32 POC Glucose 127 H 168 H 187 H 03/23/18 10:41 POC Glucose 107 Phys Exam - Physical Examination Constitutional: NAD HEENT: moist MMs Respiratory: no wheezing, no rales, no rhonchi Cardiovascular: RRR, no significant murmur Gastrointestinal: soft, positive bowel sounds TTP WESLEY Neurological: non-focal, moves all 4 limbs Psychiatric: normal affect, A&O x 3 Dx/Plan (1) Pancreatitis Code(s): K85.90 - ACUTE PANCREATITIS WITHOUT NECROSIS OR INFECTION, UNSP Status: Acute Qualifiers: Chronicity: acute Comment: Possibly medication induced, doxycycline held, GI following (2) Acute encephalopathy Code(s): G93.40 - ENCEPHALOPATHY, UNSPECIFIED Status: Acute Comment: Likely secondary to pancreatitis and chronic medication withdrawl, improved with restarting meds via NG tube. (3) DM type 2 (diabetes mellitus, type 2) Status: Chronic Qualifiers: Diabetes mellitus fci insulin use: with fci use Diabetes mellitus complication status: with kidney complications Diabetes mellitus complication detail: with chronic kidney disease Chronic kidney disease stage : stage 3 (moderate) Qualified Code(s): E11.22 - Type 2 diabetes mellitus with diabetic chronic kidney disease; N18.3 - Chronic kidney disease, stage 3 ( moderate); Z79.4 - spinning bath person (current) use of insulin (4) Diastolic heart failure Code(s): I50.30 - UNSPECIFIED DIASTOLIC (CONGESTIVE) HEART FAILURE Status: Chronic Qualifiers: Heart failure chronicity: acute on chronic Qualified Code(s): I50.33 - Acute on chronic diastolic (congestive) heart failure (5) Hypertension Code(s): I10 - ESSENTIAL (PRIMARY) HYPERTENSION Status: Chronic Qualifiers: Hypertension type: essential hypertension Qualified Code(s): I10 - Essential (primary) hypertension (6) CAD (coronary artery disease) Code(s): I25.10 - ATHSCL HEART DISEASE OF [place] CORONARY ARTERY W/O ANG PCTRS Status: Chronic Qualifiers: Coronary Disease-Associated Artery/Lesion type: [place] artery [place] vs. transplanted heart: [place] heart Associated angina: without angina Qualified Code(s): I25.10 - Atherosclerotic heart disease of [place] coronary artery without angina pectoris - Plan cont current plan of care, continue antibiotics, PT/OT, DVT proph w/lovenox Advance diet as tolerated. NG tube d/c'd. -: Still on Zosyn for possible aspiration pneumonitis, Dr. Burkett following * . - Discharge Day Encounter end time: 10:45
[2018-03-24] MEDS: Enoxaparin Sodium 30 MG/0.3 ML SYRINGE SC SCH (08:58)
[2018-03-24] MEDS: cloNIDine 0.1 MG TAB PO SCH ×2 (09:00→20:58)
[2018-03-24] MEDS: FLUoxetine HCl 20 MG CAP PO SCH (09:00)
[2018-03-24] MEDS: Losartan 25 MG TAB PO SCH (09:01)
[2018-03-24] MEDS: hydrALAZINE 25 MG TAB PO SCH ×3 (09:01→20:02)
[2018-03-24] MEDS: Gabapentin 300 MG CAP PO SCH ×2 (09:01→20:59)
[2018-03-24] MEDS: Carvedilol 25 MG TAB PO SCH ×2 (09:02→20:59)
[2018-03-24] MEDS: NIFEdipine XL 60 MG TAB PO SCH (09:02)
[2018-03-24] MEDS: Pantoprazole 40 MG VIAL IVP SCH (09:02)
--- NOTE | 2018-03-24 09:16 | PRG ---
DATE OF SERVICE: 03/24/2018 SUBJECTIVE: The patient is doing better. She is awake, alert. OBJECTIVE: VITAL SIGNS: Temperature 98.8, pulse 94, blood pressure 172/108. HEENT: Unremarkable. NECK: No JVD. CHEST: Clear. CARDIAC: S1, S2. Regular. ABDOMEN: Soft. EXTREMITIES: No edema. LABORATORY DATA: Sodium 141, potassium 3.5, chloride 112, CO2 of 20, BUN 22, creatinine 1.4, glucose 128. White blood cell count 12.6, hematocrit 36.5, and platelet count 264. ASSESSMENT: 1. Improved encephalopathy. 2. Improved pancreatitis. 3. Question of aspiration pneumonitis. PLAN: She will transfer out to the medical floor. Increase activity as tolerated. Discontinue NG tube. Hopefully, home soon. Job ID: [id number]
--- NOTE | 2018-03-24 19:48 | PRG ---
DATE OF SERVICE: 03/24/2018 SUBJECTIVE: The patient is awake, alert, conversant. She knows my name. She is oriented to place. She answers questions appropriately. She has been swallowing fine without difficulty. Abdominal pain is less. There is no nausea or vomiting. OBJECTIVE: VITAL SIGNS: Temperature is 98.9, blood pressure 142/88, pulse of 95. GENERAL: She is alert, in no distress. HEENT: Anicteric sclerae. NECK: Supple. CV: Normal S1 and S2. Regular rate and rhythm. CHEST: Breath sound. ABDOMEN: Protuberant, mildly tender, but no guarding or rebound. She has active bowel sounds. EXTREMITIES: No edema. LABORATORY: WBCs 12.6, hemoglobin 12.1, platelet count of 264. Electrolytes within normal range. Creatinine is 1.45 and BUN of 22. ASSESSMENT: 1. Acute uncomplicated pancreatitis, resolving. Lipase is now normal. 2. Altered mentation from medication withdrawal, now resolving. 3. Crohn disease in remission, overdue for her infliximab infusion last week. RECOMMENDATION: 1. Continue with diet and advance. 2. If she continues to improve, may give a dose of Remicade tomorrow. 3. Otherwise doing well from GI standpoint, we will follow. Job ID: [id number]
[2018-03-24] MEDS: Doxepin HCl 25 MG CAP PO SCH (21:39)
[2018-03-25] MEDS: Piperacillin/Tazobactam 3.375 GM in Sodium Chloride 0.9% 100 ML IVPB SCH ×2 (05:36→11:48)
[2018-03-25] MEDS: NIFEdipine XL 60 MG TAB PO SCH (08:14)
[2018-03-25] MEDS: Losartan 25 MG TAB PO SCH (08:14)
[2018-03-25] MEDS: cloNIDine 0.1 MG TAB PO SCH ×2 (08:14→20:21)
[2018-03-25] MEDS: hydrALAZINE 25 MG TAB PO SCH ×3 (08:15→20:22)
[2018-03-25] MEDS: Carvedilol 25 MG TAB PO SCH ×2 (08:15→20:21)
[2018-03-25] MEDS: Polyethylene Glycol 3350 17 GM Packet PO SCH (08:15)
[2018-03-25] MEDS: Enoxaparin Sodium 30 MG/0.3 ML SYRINGE SC SCH (08:15)
[2018-03-25] MEDS: FLUoxetine HCl 20 MG CAP PO SCH (08:15)
[2018-03-25] MEDS: Ondansetron PF 4 MG/2 ML Vial IVP PRN (09:04)
[2018-03-25] MEDS: Gabapentin 300 MG CAP PO SCH ×2 (09:04→20:22)
--- NOTE | 2018-03-25 09:24 | PDOC.PN ---
- Subjective Encounter Start Date: 03/25/18 Encounter Start Time: 11:45 Subjective: Patient had severe worsening of pain when tried to eat breakfast. Some -: nausea and a little emesis. - Objective Resuscitation Status - Order Detail: 03/18/18 11:30 Resuscitation Status Routine Co-Sign Provider: Resuscitation Status: FULL: Full Resuscitation Discussed with: patient and MAR Reviewed: Yes Vital Signs & Weight: Vital Signs (12 hours) Temp Pulse Resp BP BP Pulse Ox 03/25/18 08:15 99 03/25/18 08:14 99 163/117 H 03/25/18 08:00 98.3 F 99 16 163/117 H 97 Weight Weight 209 lb 2 oz Most Recent Monitor Data Heart Rate from ECG 87 NIBP 135/75 NIBP BP-Mean 95 Respiration from ECG 18 SpO2 95 I&O: 03/24/18 03/25/18 03/26/18 06:59 06:59 06:59 Intake Total 3426 740 Output Total 1850 455 Balance 1576 285 Result Diagrams: 03/24/18 04:15 03/24/18 04:15 Additional Labs: Accuchecks 03/25/18 03/24/18 03/24/18 05:13 19:54 17:01 POC Glucose 134 H 138 H 131 H 03/24/18 11:29 POC Glucose 143 H Phys Exam - Physical Examination Constitutional: NAD HEENT: moist MMs Respiratory: no wheezing, no rales, no rhonchi Cardiovascular: RRR, no significant murmur Gastrointestinal: soft, positive bowel sounds TTP WESLEY and RUQ Neurological: non-focal, moves all 4 limbs Psychiatric: normal affect, A&O x 3 Dx/Plan (1) Pancreatitis Code(s): K85.90 - ACUTE PANCREATITIS WITHOUT NECROSIS OR INFECTION, UNSP Status: Acute Qualifiers: Chronicity: acute Comment: Possibly medication induced, doxycycline held, GI following, markedly improved and tolerating some food (2) Acute encephalopathy Code(s): G93.40 - ENCEPHALOPATHY, UNSPECIFIED Status: Resolved Comment: Likely secondary to pancreatitis and chronic medication withdrawl, improved with restarting meds via NG tube. (3) DM type 2 (diabetes mellitus, type 2) Status: Chronic Qualifiers: Diabetes mellitus deep submergence vehicle operator insulin use: with deep submergence vehicle operator use Diabetes mellitus complication status: with kidney complications Diabetes mellitus complication detail: with chronic kidney disease Chronic kidney disease stage : stage 3 (moderate) Qualified Code(s): E11.22 - Type 2 diabetes mellitus with diabetic chronic kidney disease; N18.3 - Chronic kidney disease, stage 3 ( moderate); Z79.4 - nursing home (current) use of insulin (4) Diastolic heart failure Code(s): I50.30 - UNSPECIFIED DIASTOLIC (CONGESTIVE) HEART FAILURE Status: Chronic Qualifiers: Heart failure chronicity: acute on chronic Qualified Code(s): I50.33 - Acute on chronic diastolic (congestive) heart failure (5) Hypertension Code(s): I10 - ESSENTIAL (PRIMARY) HYPERTENSION Status: Chronic Qualifiers: Hypertension type: essential hypertension Qualified Code(s): I10 - Essential (primary) hypertension (6) CAD (coronary artery disease) Code(s): I25.10 - ATHSCL HEART DISEASE OF [place] CORONARY ARTERY W/O ANG PCTRS Status: Chronic Qualifiers: Coronary Disease-Associated Artery/Lesion type: [place] artery [place] vs. transplanted heart: [place] heart Associated angina: without angina Qualified Code(s): I25.10 - Atherosclerotic heart disease of [place] coronary artery without angina pectoris (7) Aspiration pneumonitis Code(s): J69.0 - PNEUMONITIS DUE TO INHALATION OF FOOD AND VOMIT Status: Acute Comment: on abx, pulm following - Plan cont current plan of care, continue antibiotics, PT/OT, speech therapy, DVT proph w/lovenox Possible Remicade infusion today -: Advancing diet- GI believes the pain this morning same as chronic pain -: Rehab screen, can d/c to rehab vs. SNF soon * . - Discharge Day Encounter end time: 12:00 Pulmonology Consult: Meds - Medications MAR Reviewed: Yes Medications: Current Medications Acetaminophen (Tylenol) 650 mg DC Q4H PRN PRN Reason: Headache/Fever/Mild Pain (1-3) Alteplase, Recombinant (Cathflo) 2 mg CATH ASDIR [facility] Last Admin: 03/20/18 13:52 Dose: 2 mg Carvedilol (Coreg) 25 mg PO BID [facility] Last Admin: 03/25/18 08:15 Dose: 25 mg Clonidine (Catapres) 0.3 mg PO BID [facility] Last Admin: 03/25/18 08:14 Dose: 0.3 mg Dextrose/Water (Dextrose 50%) 25 gm SLOW IVP PRN PRN PRN Reason: Hypoglycemia Last Admin: 03/19/18 13:35 Dose: 12.5 gm Doxepin HCl (Sinequan) 100 mg PO HS [facility] Last Admin: 03/24/18 21:39 Dose: 100 mg Enoxaparin Sodium (Lovenox) 30 mg SC 0900 [facility] Last Admin: 03/25/18 08:15 Dose: 30 mg Fluoxetine HCl (Prozac) 40 mg PO DAILY [facility] Last Admin: 03/25/18 08:15 Dose: 40 mg Gabapentin (Neurontin) 300 mg PO BID [facility] Last Admin: 03/25/18 09:04 Dose: Not Given Glucagon (Glucagon) 1 mg IM PRN PRN PRN Reason: Hypoglycemia Hydralazine HCl (Apresoline) 10 mg SLOW IVP Q4H PRN PRN Reason: SBP > 180 and HR < 70 Last Admin: 03/20/18 17:19 Dose: 10 mg Hydralazine HCl (Apresoline) 100 mg PO TID [facility] Last Admin: 03/25/18 08:15 Dose: 100 mg Dextrose/Water (D5w) 1,000 mls @ 0 mls/hr IV .Q0M PRN PRN Reason: Hypoglycemia Piperacillin Sod/Tazobactam (Sod 3.375 gm/ Sodium Chloride) 100 mls @ 200 mls/ hr IVPB Q6HR [facility] Last Admin: 03/25/18 05:36 Dose: 100 mls Insulin Human Lispro (Humalog) 0 units SC .MILD SLIDING SCALE PRN PRN Reason: Mild Correctional Scale Last Admin: 03/23/18 16:34 Dose: 2 unit Losartan Potassium (Cozaar) 100 mg PO DAILY [facility] Last Admin: 03/25/18 08:14 Dose: 100 mg Nifedipine (Procardia Xl) 60 mg PO DAILY [facility] Last Admin: 03/25/18 08:14 Dose: 60 mg Ondansetron HCl (Zofran Odt) 4 mg PO Q6H PRN PRN Reason: Nausea/Vomiting Ondansetron HCl (Zofran) 4 mg IVP Q4H PRN PRN Reason: Nausea/Vomiting Last Admin: 03/25/18 09:04 Dose: 4 mg Pantoprazole Sodium (Protonix) 40 mg PO DAILY [facility] Last Admin: 01/10/19 08:15 Dose: 40 mg Polyethylene Glycol (Miralax) 17 gm PO DAILY [facility] Last Admin: 03/25/18 08:15 Dose: 17 gm Quetiapine Fumarate (Seroquel) [address] [facility] Last Admin: 03/24/18 20:59 Dose: 400 mg - Allergies Allergies/Adverse Reactions: Allergies Allergy/AdvReac Type Severity Reaction Status Date / Time No Known Drug Allergies Allergy Verified 08/19/17 23:42
[2018-03-25] MEDS: Morphine 2 MG/ML SYRINGE SLOW IVP PRN ×2 (09:45→13:40)
[2018-03-25] MEDS ORDERED: Bisacodyl 10 MG SUPP PR PRN (13:00)
[2018-03-25] MEDS ORDERED: Milk Of Magnesia 30 ML UDCUP PO PRN (13:00)
--- NOTE | 2018-03-25 13:08 | PRG ---
DATE OF SERVICE: 03/25/2018 SUBJECTIVE: The patient is currently out on the medical floor. She is alert, awake, and fully oriented. She complains of her abdominal pain which is chronic. She did have an episode of bilious emesis earlier this morning. She has not had a bowel movement since admission. PHYSICAL EXAMINATION: VITAL SIGNS: Temperature is 98.8, blood pressure 156/99, pulse of 100. GENERAL: She is alert and oriented. HEENT: Exam shows anicteric sclerae. Oropharynx clear. NECK: Supple. CV: Shows normal S1 and S2. Regular rate and rhythm. CHEST: Shows a breath sound. ABDOMEN: Protuberant, but no tympany. She has active bowel sounds. There is mild diffuse tenderness, but no guarding or rebound. EXTREMITIES: Exam shows no edema. LABORATORY DATA: No new labs today. Two sets of blood culture negative at 5 days and urine culture negative at 48 hours. ASSESSMENT: 1. Acute uncomplicated pancreatitis, resolved with normalization of her lipase. Her abdominal pain is now back to her baseline chronic pain. 2. Altered mentation from medication withdrawal, resolved. 3. Crohn disease in remission. As there is no evidence of infection at the present time, we will proceed with infliximab infusion, which is one week overdue. 4. Chronic constipation, will give milk of magnesia from above and Dulcolax suppository. RECOMMENDATIONS: 1. As above. 2. Discontinue [place] and increase physical activity. 3. Infliximab infusion today. 4. Milk of magnesia and Dulcolax suppository for constipation. 5. The patient can be discharged from GI standpoint when she is able to tolerate diet, increased physical activity. Job ID: [id number]
[2018-03-25] MEDS ORDERED: INFLIXIMAB DYYB IV SCH ×2 (13:15→15:00)
[2018-03-25] MEDS ORDERED: SODIUM CHLORIDE 0.9% IV SCH ×2 (13:15→15:00)
[2018-03-25] MEDS ORDERED: diphenhydrAMINE 25 MG CAP PO SCH (17:15)
[2018-03-25] MEDS ORDERED: Acetaminophen 325 MG TAB PO SCH (17:15)
[2018-03-25] MEDS: Doxepin HCl 25 MG CAP PO SCH (20:22)
[2018-03-26] MEDS: Morphine 2 MG/ML SYRINGE SLOW IVP PRN ×3 (03:07→17:50)
[2018-03-26] MEDS: Losartan 25 MG TAB PO SCH (08:49)
[2018-03-26] MEDS: FLUoxetine HCl 20 MG CAP PO SCH (08:50)
[2018-03-26] MEDS: NIFEdipine XL 60 MG TAB PO SCH (08:50)
[2018-03-26] MEDS: cloNIDine 0.1 MG TAB PO SCH ×2 (08:50→21:36)
[2018-03-26] MEDS: Gabapentin 300 MG CAP PO SCH ×2 (08:51→21:33)
[2018-03-26] MEDS: Polyethylene Glycol 3350 17 GM Packet PO SCH (08:51)
[2018-03-26] MEDS: Carvedilol 25 MG TAB PO SCH ×2 (08:51→21:35)
[2018-03-26] MEDS: hydrALAZINE 25 MG TAB PO SCH ×3 (08:51→21:34)
[2018-03-26] MEDS: Enoxaparin Sodium 30 MG/0.3 ML SYRINGE SC SCH (08:55)
--- NOTE | 2018-03-26 11:26 | PDOC.PN ---
- Subjective Encounter Start Date: 03/26/18 Encounter Start Time: 11:00 "I feel a little better." No nausea this morning, tolerated some breakfast. Feels better day by day. Tolerated remicade infusion yesterday. Pain "about the same", abdomen right side, mild. - Objective Resuscitation Status - Order Detail: 03/18/18 11:30 Resuscitation Status Routine Co-Sign Provider: Resuscitation Status: FULL: Full Resuscitation Discussed with: patient and Vital Signs & Weight: Vital Signs (12 hours) Temp Pulse Resp BP BP Pulse Ox 03/26/18 08:51 85 03/26/18 08:50 85 152/92 H 03/26/18 08:35 93 L 03/26/18 07:44 98.2 F 85 18 152/92 H 93 L 03/26/18 02:22 94 L Weight Weight 209 lb 2 oz Most Recent Monitor Data Heart Rate from ECG 87 NIBP 135/75 NIBP BP-Mean 95 Respiration from ECG 18 SpO2 95 I&O: 03/25/18 03/26/18 03/27/18 06:59 06:59 06:59 Intake Total 740 460 Output Total 455 1000 Balance 285 -540 Result Diagrams: 03/24/18 04:15 03/24/18 04:15 Additional Labs: Accuchecks 03/26/18 03/25/18 03/25/18 03:34 19:51 16:27 POC Glucose 174 H 173 H 148 H 03/25/18 11:30 POC Glucose 127 H Phys Exam - Physical Examination Fairly comfortable HEENT: moist MMs, oral pharynx no lesions Neck: supple, full ROM Respiratory: no wheezing, clear to auscultation bilateral Cardiovascular: RRR, no significant murmur Gastrointestinal: soft mildly tender right upper quandrant, celso rebound/guarding Musculoskeletal: no edema Neurological: non-focal, moves all 4 limbs Psychiatric: normal affect, A&O x 3 Skin: no rash Dx/Plan (1) Physical deconditioning Code(s): R53.81 - OTHER [place] Status: Acute Comment: Inpatient rehab referral underway (2) Aspiration pneumonitis Code(s): J69.0 - PNEUMONITIS DUE TO INHALATION OF FOOD AND VOMIT Status: Acute Comment: Abx stopped, appreciate Dr. Burkett's care, overall improving (3) Pancreatitis Code(s): K85.90 - ACUTE PANCREATITIS WITHOUT NECROSIS OR INFECTION, UNSP Status: Acute Qualifiers: Chronicity: acute Comment: Possibly medication induced, doxycycline held, GI following, markedly improved and tolerating some food. Some ongoing abdominal pain, which is felt to be near her baseline (4) Acute encephalopathy Code(s): G93.40 - ENCEPHALOPATHY, UNSPECIFIED Status: Resolved Comment: Likely secondary to pancreatitis and chronic medication withdrawl, improved with restarting meds via NG tube. (5) CAD (coronary artery disease) Code(s): I25.10 - ATHSCL HEART DISEASE OF [place] CORONARY ARTERY W/O ANG PCTRS Status: Chronic Qualifiers: Coronary Disease-Associated Artery/Lesion type: [place] artery [place] vs. transplanted heart: [place] heart Associated angina: without angina Qualified Code(s): I25.10 - Atherosclerotic heart disease of [place] coronary artery without angina pectoris (6) Crohns disease Code(s): K50.90 - CROHN'S DISEASE, UNSPECIFIED, WITHOUT COMPLICATIONS Status: Chronic Qualifiers: Gastrointestinal tract location: unspecified location Digestive disease complication type: unspecified complication Qualified Code(s): K50.919 - Crohn 's disease, unspecified, with unspecified complications Comment: on remicaid infusion [id number], received 03/25 (7) DM type 2 (diabetes mellitus, type 2) Status: Chronic Qualifiers: 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 Diabetes mellitus complication status: with kidney complications Diabetes mellitus complication detail: with chronic kidney disease Chronic kidney disease stage : stage 3 (moderate) Qualified Code(s): E11.22 - Type 2 diabetes mellitus with diabetic chronic kidney disease; N18.3 - Chronic kidney disease, stage 3 ( moderate); Z79.4 - group home (current) use of insulin (8) Diastolic heart failure Code(s): I50.30 - UNSPECIFIED DIASTOLIC (CONGESTIVE) HEART FAILURE Status: Chronic Qualifiers: Heart failure chronicity: acute on chronic Qualified Code(s): I50.33 - Acute on chronic diastolic (congestive) heart failure (9) Hypertension Code(s): I10 - ESSENTIAL (PRIMARY) HYPERTENSION Status: Chronic Qualifiers: Hypertension type: essential hypertension Qualified Code(s): I10 - Essential (primary) hypertension - Plan cont current plan of care, PT/OT, DVT proph w/lovenox * See specifics above. * Rehab referral underway. Spoke with rehab intake Monica, case will pend insurance approval.
--- NOTE | 2018-03-26 15:46 | PRG ---
DATE OF SERVICE: 03/26/2018 SUBJECTIVE: The patient is doing well today. She is continuing to have some right-sided lower abdominal pain. She is eating liquids and her bowels are not moved yet, but she is going to have some MiraLAX. OBJECTIVE: VITAL SIGNS: Temperature is 98.2, pulse is 95, respiratory rate 16, blood pressure 134/83. CHEST: Clear. CARDIOVASCULAR: Regular rate and rhythm. ABDOMEN: Soft, nontender without organomegaly or masses. LABORATORY DATA: Laboratory shows a white blood cell count of 12.6, normal hemoglobin and hematocrit. ASSESSMENT: 1. Pancreatitis-resolved. 2. Crohn disease, in remission. 3. Chronic constipation. RECOMMENDATIONS: 1. Continue evaluation for rehab. 2. Continue MiraLAX. 3. The patient received infliximab yesterday. Job ID: [id number]
[2018-03-26] MEDS: Doxepin HCl 25 MG CAP PO SCH (21:36)
[2018-03-27] MEDS: Morphine 2 MG/ML SYRINGE SLOW IVP PRN ×4 (04:44→20:13)
[2018-03-27 07:08] LABS: #Basophils 0.1 thou/uL (0.0-0.2); #Eosinphils 0.1 thou/uL (0.0-0.7); #Lymphocytes 1.6 thou/uL (1.20-3.40); #Monocytes 1.4 thou/uL (0.11-0.59); #Neutrophils 6.7 thou/uL (1.40-6.50); %Basophils 0.6 % (0.0-1.0); %Eosinophils 1.2 % (0.0-10.0); %Lymphocytes 16.2 % (21.0-51.0); %Monocytes 13.9 % (0.0-10.0); %Neutrophils 68.1 % (42.0-75.0); Hemoglobin 11.1 g/dL (12.0-16.0); Mean Corpuscular HGB CONC 32.2 g/dL (32.0-36.0); Mean Corpuscular Hemoglobin 32.9 pg (27.0-31.0); Mean Platelet Volume 7.9 fL (7.4-10.4); Platelet Count 328 thou/uL (130-400); Red Blood Cell (RBC) Count 3.38 mill/uL (4.20-5.40); White Blood Cell (WBC) Count 9.8 thou/uL (4.8-10.8)
[2018-03-27 07:13] LABS: Anion Gap 11 mmol/L (10-20); BUN (Urea Nitrogen) 12 mg/dL (9.8-20.1); Calc. Creatinine Clearance 82 mL/min (70-130); Calcium 8.5 mg/dL (7.8-10.44); Carbon Dioxide 21 mmol/L (23-31); Chloride 110 mmol/L (98-107); Estimated GFR-MDRD 64; Glucose 143 mg/dL (80-115); Potassium 3.3 mmol/L (3.5-5.1); Sodium 139 mmol/L (136-145)
[2018-03-27] MEDS: Enoxaparin Sodium 30 MG/0.3 ML SYRINGE SC SCH (07:58)
[2018-03-27] MEDS: Polyethylene Glycol 3350 17 GM Packet PO SCH (07:58)
[2018-03-27] MEDS: Losartan 25 MG TAB PO SCH (07:58)
[2018-03-27] MEDS: NIFEdipine XL 60 MG TAB PO SCH (07:59)
[2018-03-27] MEDS: hydrALAZINE 25 MG TAB PO SCH ×3 (07:59→20:17)
[2018-03-27] MEDS: Carvedilol 25 MG TAB PO SCH ×2 (07:59→20:17)
[2018-03-27] MEDS: FLUoxetine HCl 20 MG CAP PO SCH (07:59)
[2018-03-27] MEDS: cloNIDine 0.1 MG TAB PO SCH ×2 (08:00→20:17)
[2018-03-27] MEDS: Gabapentin 300 MG CAP PO SCH ×2 (08:00→20:17)
[2018-03-27] MEDS ORDERED: Bisacodyl 10 MG SUPP PR PRN (10:22)
[2018-03-27] MEDS ORDERED: Magnesium Citrate 300 ML BOT PO SCH (10:30)
--- NOTE | 2018-03-27 10:53 | PRG ---
DATE OF SERVICE: 03/27/2018 SUBJECTIVE: The patient is complaining of some tightness and fullness in her abdomen. She seems to be eating. She reports she has not had a bowel movement in the last 12 days. She denies any nausea or vomiting. OBJECTIVE: VITAL SIGNS: Temperature 98.6, pulse 95, respiratory rate 22, and blood pressure was 138/91. CHEST: Clear. CARDIOVASCULAR: Regular rate and rhythm. ABDOMEN: Soft, diffusely tender without rebound or guarding. LABORATORY DATA: Laboratories shows a potassium 3.3, CO2 of 21, and glucose 143. ASSESSMENT: 1. Constipation. 2. Pancreatitis. 3. Crohn disease. RECOMMENDATIONS: 1. Dulcolax suppository. 2. Continue MiraLAX. 3. Bottle of mag citrate. 4. Otherwise stable from GI standpoint. Job ID: [id number]
[2018-03-27] MEDS ORDERED: traMADol HCl 50 MG TAB PO PRN (13:40)
--- NOTE | 2018-03-27 13:43 | PDOC.PN ---
- Subjective Encounter Start Date: 03/27/18 (f/u DM) Encounter Start Time: 13:41 Subjective: Pt c/o pain 6/10 in intensity which she reports is improved c/t admission -: states she can drink liquids, not eating solids due to pain. Voiding -: without difficulty, no BM since prior to admission. c/o swelling - Objective Resuscitation Status - Order Detail: 03/18/18 11:30 Resuscitation Status Routine Co-Sign Provider: Resuscitation Status: FULL: Full Resuscitation Discussed with: patient and Vital Signs & Weight: Vital Signs (12 hours) Temp Pulse Resp BP BP Pulse Ox 03/27/18 08:00 138/91 H 95 03/27/18 07:59 95 03/27/18 07:47 98.6 F 95 22 H 159/102 H 95 Weight Weight 209 lb 2 oz Most Recent Monitor Data Heart Rate from ECG 87 NIBP 135/75 NIBP BP-Mean 95 Respiration from ECG 18 SpO2 95 I&O: 03/26/18 03/27/18 03/28/18 06:59 06:59 06:59 Intake Total 460 670 360 Output Total 1000 Balance -540 670 360 Result Diagrams: 03/27/18 06:23 03/27/18 06:23 Additional Labs: Accuchecks 03/27/18 03/27/18 03/26/18 11:12 05:04 19:38 POC Glucose 152 H 159 H 169 H 03/26/18 16:21 POC Glucose 154 H Phys Exam - Physical Examination Constitutional: NAD Respiratory: no wheezing, no rales, no rhonchi Cardiovascular: RRR, no significant murmur Gastrointestinal: soft, positive bowel sounds mild ttp throughout, no palpable abnormality 2+ edema in LE and arms, non-pitting Neurological: non-focal Psychiatric: normal affect Dx/Plan (1) Pancreatitis Code(s): K85.90 - ACUTE PANCREATITIS WITHOUT NECROSIS OR INFECTION, UNSP Status: Acute Qualifiers: Chronicity: acute Comment: Possibly medication induced, doxycycline held, GI following, markedly improved and tolerating some food. Some ongoing abdominal pain, which is felt to be near her baseline (2) Aspiration pneumonitis Code(s): J69.0 - PNEUMONITIS DUE TO INHALATION OF FOOD AND VOMIT Status: Acute Comment: Abx stopped, appreciate Dr. Burkett's care, appears resolved (3) Physical deconditioning Code(s): R53.81 - OTHER [place] Status: Acute Comment: Inpatient rehab referral underway (4) CAD (coronary artery disease) Code(s): I25.10 - ATHSCL HEART DISEASE OF [place] CORONARY ARTERY W/O ANG PCTRS Status: Chronic Qualifiers: Coronary Disease-Associated Artery/Lesion type: [place] artery [place] vs. transplanted heart: [place] heart Associated angina: without angina Qualified Code(s): I25.10 - Atherosclerotic heart disease of [place] coronary artery without angina pectoris (5) Crohns disease Code(s): K50.90 - CROHN'S DISEASE, UNSPECIFIED, WITHOUT COMPLICATIONS Status: Chronic Qualifiers: Gastrointestinal tract location: unspecified location Digestive disease complication type: unspecified complication Qualified Code(s): K50.919 - Crohn 's disease, unspecified, with unspecified complications Comment: on remicaid infusion [id number], received 03/25 (6) DM type 2 (diabetes mellitus, type 2) Status: Chronic Qualifiers: 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 Diabetes mellitus complication status: with kidney complications Diabetes mellitus complication detail: with chronic kidney disease Chronic kidney disease stage : stage 3 (moderate) Qualified Code(s): E11.22 - Type 2 diabetes mellitus with diabetic chronic kidney disease; N18.3 - Chronic kidney disease, stage 3 ( moderate); Z79.4 - ocean transportation intermediary (current) use of insulin (7) Diastolic heart failure Code(s): I50.30 - UNSPECIFIED DIASTOLIC (CONGESTIVE) HEART FAILURE Status: Chronic Qualifiers: Heart failure chronicity: acute on chronic Qualified Code(s): I50.33 - Acute on chronic diastolic (congestive) heart failure (8) Hypertension Code(s): I10 - ESSENTIAL (PRIMARY) HYPERTENSION Status: Chronic Qualifiers: Hypertension type: essential hypertension Qualified Code(s): I10 - Essential (primary) hypertension (9) Obesity Code(s): E66.9 - OBESITY, UNSPECIFIED Status: Chronic Qualifiers: Obesity type: unspecified obesity type Obesity classification: adult class 2 (BMI 35 - 39.9) Body mass index: BMI 38.0-38.9 - Plan * constipation - resume amitiza - listed as home med, as well as other meds as ordered * dm - controlled - hold on long-acting insulin until taking eating solid foods * resume torsemide at lower than home dose to insure she tolerates and renal function remains normal * replace potassium and schedule potassium with torsemide. Check mag and renal function tomorrow * continue other meds as ordered * resume rexulti - listed as home medication for mood * add tramadol as pain medication option - pt on this at home. * * awaiting rehab eval/approval * * dvt prophy - scd's and pt ambulatory * gi prophy- not indicated * code status * * reviewed plan of care with patient/, no questions or further needs at end of eval.
[2018-03-27] MEDS ORDERED: Potassium Chloride 20 MEQ TAB PO SCH (13:45)
[2018-03-27] MEDS ORDERED: Torsemide 20 MG TAB PO SCH (13:45)
[2018-03-27] MEDS: Lubiprostone 24 MCG CAP PO SCH (16:33)
[2018-03-27] MEDS: Potassium Chloride 20 MEQ TAB PO SCH (16:33)
--- NOTE | 2018-03-27 20:11 | EKG ---
Test Reason : Blood Pressure : / mmHG Vent. Rate : 081 BPM Atrial Rate : 081 BPM P-R Int : 168 ms QRS Dur : 096 ms QT Int : 442 ms P-R-T Axes : 028 -05 020 degrees QTc Int : 513 ms Normal sinus rhythm Possible Left atrial enlargement Left ventricular hypertrophy Prolonged QT Abnormal ECG Confirmed by REMY HAQUE ([id number]), news videotape editor YASH MAGALLANES ([id number]) on 03/27/2018 8:10:56 PM Referred By: Confirmed By:REMY HAQUE
[2018-03-27] MEDS: Doxepin HCl 25 MG CAP PO SCH (20:17)
[2018-03-28] MEDS: Lubiprostone 24 MCG CAP PO SCH ×2 (07:41→16:44)
[2018-03-28] MEDS: Losartan 25 MG TAB PO SCH (07:42)
[2018-03-28] MEDS: hydrALAZINE 25 MG TAB PO SCH ×3 (07:42→20:31)
[2018-03-28] MEDS: FLUoxetine HCl 20 MG CAP PO SCH (07:42)
[2018-03-28] MEDS: cloNIDine 0.1 MG TAB PO SCH ×2 (07:43→20:31)
[2018-03-28] MEDS: Carvedilol 25 MG TAB PO SCH ×2 (07:43→20:31)
[2018-03-28] MEDS: Potassium Chloride 20 MEQ TAB PO SCH ×2 (07:44→16:44)
[2018-03-28] MEDS: Polyethylene Glycol 3350 17 GM Packet PO SCH (07:44)
[2018-03-28] MEDS: Gabapentin 300 MG CAP PO SCH ×2 (07:44→20:31)
[2018-03-28] MEDS: NIFEdipine XL 60 MG TAB PO SCH (07:44)
[2018-03-28] MEDS: Enoxaparin Sodium 30 MG/0.3 ML SYRINGE SC SCH (07:44)
[2018-03-28] MEDS: Aripiprazole 10 MG TAB PO SCH (07:44)
[2018-03-28 07:52] LABS: #Eosinphils 0.1 thou/uL (0.0-0.7); #Lymphocytes 1.6 thou/uL (1.20-3.40); #Monocytes 1.1 thou/uL (0.11-0.59); #Neutrophils 6.5 thou/uL (1.40-6.50); %Basophils 0.2 % (0.0-1.0); %Eosinophils 0.9 % (0.0-10.0); %Lymphocytes 17.7 % (21.0-51.0); %Monocytes 11.5 % (0.0-10.0); %Neutrophils 69.7 % (42.0-75.0); Hemoglobin 11.2 g/dL (12.0-16.0); Mean Corpuscular Hemoglobin 33.2 pg (27.0-31.0); Mean Corpuscular Volume 97.7 fL (78.0-98.0); Mean Platelet Volume 7.6 fL (7.4-10.4); Platelet Count 352 thou/uL (130-400); RBC Distribution Width 14.4 % (11.5-14.5); Red Blood Cell (RBC) Count 3.39 mill/uL (4.20-5.40); White Blood Cell (WBC) Count 9.3 thou/uL (4.8-10.8)
[2018-03-28 07:59] LABS: Anion Gap 11 mmol/L (10-20); BUN (Urea Nitrogen) 11 mg/dL (9.8-20.1); Calc. Creatinine Clearance 73 mL/min (70-130); Calcium 8.8 mg/dL (7.8-10.44); Carbon Dioxide 25 mmol/L (23-31); Chloride 107 mmol/L (98-107); Estimated GFR-MDRD 56; Glucose 167 mg/dL (80-115); Magnesium 1.9 mg/dL (1.6-2.6); Potassium 3.4 mmol/L (3.5-5.1); Sodium 140 mmol/L (136-145)
[2018-03-28] MEDS: Torsemide 20 MG TAB PO SCH ×2 (08:40→14:11)
[2018-03-28] MEDS: Morphine 2 MG/ML SYRINGE SLOW IVP PRN ×2 (10:34→14:12)
--- NOTE | 2018-03-28 14:13 | PDOC.PN ---
- Subjective Encounter Start Date: 03/28/18 (f/u abd pain) Encounter Start Time: 14:11 Subjective: Pt reports poor solid food intake secondary to pain- states this is -: a lot worse that her usual pain prior to this hospitalization. -: expresses concern as well. Denies any bowel movement - Objective Resuscitation Status - Order Detail: 03/18/18 11:30 Resuscitation Status Routine Co-Sign Provider: Resuscitation Status: FULL: Full Resuscitation Discussed with: patient and Vital Signs & Weight: Vital Signs (12 hours) Temp Pulse Resp BP BP Pulse Ox 03/28/18 08:21 98.7 F 93 18 121/89 96 03/28/18 08:00 96 03/28/18 07:44 98 03/28/18 07:43 159/109 H 03/28/18 07:42 98 Weight Weight 209 lb 2 oz Most Recent Monitor Data Heart Rate from ECG 87 NIBP 135/75 NIBP BP-Mean 95 Respiration from ECG 18 SpO2 95 I&O: 03/27/18 03/28/18 03/29/18 06:59 06:59 06:59 Intake Total 670 1210 480 Balance 670 1210 480 Result Diagrams: 03/28/18 07:25 03/28/18 07:25 Additional Labs: Accuchecks 03/28/18 03/28/18 03/27/18 11:30 05:14 20:11 POC Glucose 161 H 148 H 153 H 03/27/18 17:11 POC Glucose 167 H Phys Exam - Physical Examination Constitutional: NAD Respiratory: no wheezing, no rales, no rhonchi, clear to auscultation bilateral Cardiovascular: RRR, no significant murmur Gastrointestinal: soft, positive bowel sounds ttp throughout, no palpable abnormality 2+ edema bilateral in LE - improved compared to yesterday Neurological: non-focal, moves all 4 limbs Skin: no rash Dx/Plan (1) Pancreatitis Code(s): K85.90 - ACUTE PANCREATITIS WITHOUT NECROSIS OR INFECTION, UNSP Status: Acute Qualifiers: Chronicity: acute Comment: Possibly medication induced, doxycycline held, GI following. 03/28 - reports abd pain greater than her baseline - check XR and consider CT with oral contrast only (2) Aspiration pneumonitis Code(s): J69.0 - PNEUMONITIS DUE TO INHALATION OF FOOD AND VOMIT Status: Acute Comment: Abx stopped, appreciate Dr. Burkett's care, appears resolved (3) Physical deconditioning Code(s): R53.81 - OTHER MAL[place] Status: Acute Comment: Inpatient rehab referral underway (4) CAD (coronary artery disease) Code(s): I25.10 - ATHSCL HEART DISEASE OF [place] CORONARY ARTERY W/O ANG PCTRS Status: Chronic Qualifiers: Coronary Disease-Associated Artery/Lesion type: [place] artery [place] vs. transplanted heart: [place] heart Associated angina: without angina Qualified Code(s): I25.10 - Atherosclerotic heart disease of [place] coronary artery without angina pectoris (5) Crohns disease Code(s): K50.90 - CROHN'S DISEASE, UNSPECIFIED, WITHOUT COMPLICATIONS Status: Chronic Qualifiers: Gastrointestinal tract location: unspecified location Digestive disease complication type: unspecified complication Qualified Code(s): K50.919 - Crohn 's disease, unspecified, with unspecified complications Comment: on remicaid infusion [id number], received 03/25 (6) DM type 2 (diabetes mellitus, type 2) Status: Chronic Qualifiers: 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 marine terminal use Diabetes mellitus complication status: with kidney complications Diabetes mellitus complication detail: with chronic kidney disease Chronic kidney disease stage : stage 3 (moderate) Qualified Code(s): E11.22 - Type 2 diabetes mellitus with diabetic chronic kidney disease; N18.3 - Chronic kidney disease, stage 3 ( moderate); Z79.4 - marine oil terminal superintendent (current) use of insulin (7) Diastolic heart failure Code(s): I50.30 - UNSPECIFIED DIASTOLIC (CONGESTIVE) HEART FAILURE Status: Chronic Qualifiers: Heart failure chronicity: acute on chronic Qualified Code(s): I50.33 - Acute on chronic diastolic (congestive) heart failure (8) Hypertension Code(s): I10 - ESSENTIAL (PRIMARY) HYPERTENSION Status: Chronic Qualifiers: Hypertension type: essential hypertension Qualified Code(s): I10 - Essential (primary) hypertension (9) Obesity Code(s): E66.9 - OBESITY, UNSPECIFIED Status: Chronic Qualifiers: Obesity type: unspecified obesity type Obesity classification: adult class 2 (BMI 35 - 39.9) Body mass index: BMI 38.0-38.9 - Plan * Given amount of pain and poor PO intake for solids - will order XR. If normal , consider CT scan with oral contrast only to determine other etiologies of pain as pancreatitis resolved with normal lipase earlier in this hospitalization * * constipation - resumed amitiza today, had dulcolax. HOld on additional medications for now pending XR. * * dm - controlled - hold on long-acting insulin until taking eating solid foods * resume torsemide at lower than home dose to insure she tolerates and renal function remains normal - will change to once daily. * ckd has been stable * * replace potassium and schedule potassium with torsemide. Check mag and renal function tomorrow * continue other meds as ordered * pt on home meds for mood * add tramadol as pain medication option - pt on this at home. * * awaiting rehab eval/approval * * dvt prophy - scd's and pt ambulatory * gi prophy- not indicated * code status * * reviewed plan of care with patient/, no questions or further needs at end of eval.. * * 16:00 - reviewed XR and pt with distended loops of bowel and picture c/w ileus vs SBO. Plan: * - NPO * - NGT to low-intermittent suction * - Surgery consult with Dr. Wilkinson * - NS for hydration - anticipate pt will need a CT scan with contrast. * - Will change morphine to 2-4 mg q4h prn for pain. * - d/c torsemide * - reviewed prior hospitalization in may 30 - pt admitted for heart failure and abd pain, found to have a SBO that didnt respond to conservative therapy and went to surgery with Dr. Lomas due to high output bilious fluid. Reviewed CT scan from admission - ?duodenitis but no obstruction visualized. Also reviewed all other studies here with patient/son/. In addition, discussed that as long as there is no emergency or significant worsening, the NGT and time to allow the bowel obstruction to heal. No questions or further needs at end of discussion - they demonstrate understanding and agree with plan. Face to face time for this conversation was 20 minutes
--- NOTE | 2018-03-28 15:15 | RAD ---
ABDOMEN 2 VIEWS: DATE: 03/28/2018. COMPARISON: CT abdomen and pelvis 03/18/2018. HISTORY: Distention and abdominal pain, evaluate for obstruction. FINDINGS: Since the prior study on 03/18/2018, there has been interval development of prominent diffuse small bow el gaseous distention with air fluid levels on upright imaging. The upper abdomen is not fully image d on the upright view limiting assessment for free air. Clips in right upper quadrant suggest prior cholecystectomy. IMPRESSION: Interval development of numerous gas-filled dilated loops of small bowel with air fluid levels on upr ight imaging suggesting severe ileus or small bowel obstruction. POS: DEVON
--- NOTE | 2018-03-28 15:25 | PRG ---
DATE OF SERVICE: 03/28/2018 SUBJECTIVE: The patient is reporting increase in pain. She had no bowel result from her Dulcolax suppositories or her magnesium citrate. OBJECTIVE: VITAL SIGNS: Temperature 98.7, pulse 93, respiratory rate 18, and blood pressure 121/89. HEENT: Unremarkable. CHEST: Clear. CARDIOVASCULAR: Regular rate and rhythm. ABDOMEN: Soft, somewhat protuberant, tender diffusely. RECTAL: Deferred. LABORATORY DATA: Laboratory shows a white blood cell count of 9.3, hemoglobin 11.2, and hematocrit 33.1. Chemistries significant for a glucose 167, creatinine 1.18, and potassium 3.4. ASSESSMENT: 1. Pancreatitis. 2. Crohn disease. 3. Constipation-the patient has not responded to magnesium citrate or Dulcolax suppositories. RECOMMENDATIONS: 1. Agree with CT. 2. Could add contrast. 3. These results will dictate further management. Job ID: [id number]
[2018-03-28] MEDS: Sodium Chloride 0.9% 1,000 ML IV SCH (16:15)
[2018-03-28] MEDS: Morphine 4 MG/ML VIAL SLOW IVP PRN (19:02)
--- NOTE | 2018-03-28 19:47 | CON ---
DATE OF CONSULTATION: 03/28/2018 CHIEF COMPLAINT: Pancreatitis, abdominal distention. HISTORY OF PRESENT ILLNESS: This is a 62-year-old female, who presents with a history of pancreatitis, admitted on the . CT scan then showed inflammation to the head of her pancreas with some secondary duodenitis. Admitted for supportive type care. She did have some mental status changes early on with negative brain CTs. Improved clinically, although today feeling worse, more distended. Plain x-rays show ileus pattern with air in dilated colon and intestine. Her creatinine is just above normal, so a CT scan has not been done. She has had three urine output today she says, she feels slightly improved with NG tube placement. PAST MEDICAL HISTORY: Includes Crohn disease, ulcerative colitis, type 2 diabetes, hypertension. SURGICAL HISTORY: Appendectomy and cholecystectomy. HOME MEDICATIONS: 1. Lipitor. 2. Catapres. 3. Doxepin. 4. Prilosec. 5. Prozac. 6. Gabapentin. 7. Remicade. 8. Levemir. 9. Trulance. 10. Latuda. 11. Seroquel. 12. Torsemide. 13. Tramadol. 14. Doxycycline. ALLERGIES: NO KNOWN DRUG ALLERGIES. SOCIAL HISTORY: Denies alcohol. No illicit drug use. Half a pack a day smoker. REVIEW OF SYSTEMS: Otherwise negative unless described above. PHYSICAL EXAMINATION: VITAL SIGNS: Her pulse is 93. Her blood pressure is 121/89. She is afebrile. NG tube looks like it is about 400 out so far, nonbilious. CHEST: Bilateral clear. HEART: Regular rate and rhythm. ABDOMEN: Soft. It is distended. Diffuse, mildly tender without guarding or rebound. No obvious abdominal hernias. LABORATORY DATA: White blood cell count today was 9, hemoglobin 11, platelet count is 352 with normal differential. Creatinine today was 1.18, this is down from admission creatinine but up since yesterday. Potassium is 3.4. Sugars were running in the 130s to 160s. Plain film today shows air in dilated small intestine, but there is also some air in the colon. ASSESSMENT: Ileus secondary likely to pancreatitis and duodenitis. PLAN: Agree with NG tube. Supportive care. May be hydrate overnight. CT scan tomorrow. I suspect she has more third-spacing, inflammatory change in her abdomen now, which is contributing to her ileus. She has MediPort already, we could start TPN tomorrow. Continue NG tube decompression until the ileus resolves. CT scan to rule out pseudocyst, phlegmon. Job ID: [id number]
[2018-03-28] MEDS: Doxepin HCl 25 MG CAP PO SCH (20:31)
[2018-03-28 22:19] LABS: Anion Gap 17 mmol/L (10-20); BUN (Urea Nitrogen) 10 mg/dL (9.8-20.1); Calc. Creatinine Clearance 79 mL/min (70-130); Calcium 8.8 mg/dL (7.8-10.44); Carbon Dioxide 20 mmol/L (23-31); Chloride 106 mmol/L (98-107); Estimated GFR-MDRD 61; Glucose 149 mg/dL (80-115); Potassium 4.8 mmol/L (3.5-5.1); Sodium 138 mmol/L (136-145)
[2018-03-29] MEDS: Morphine 4 MG/ML VIAL SLOW IVP PRN ×3 (01:24→09:41)
[2018-03-29] MEDS: Sodium Chloride 0.9% 1,000 ML IV SCH ×2 (05:02→17:30)
[2018-03-29 07:07] LABS: Anion Gap 16 mmol/L (10-20); BUN (Urea Nitrogen) 9 mg/dL (9.8-20.1); Calc. Creatinine Clearance 85 mL/min (70-130); Calcium 8.8 mg/dL (7.8-10.44); Carbon Dioxide 22 mmol/L (23-31); Chloride 107 mmol/L (98-107); Estimated GFR-MDRD 67; Glucose 135 mg/dL (80-115); Magnesium 1.7 mg/dL (1.6-2.6); Potassium 3.6 mmol/L (3.5-5.1); Sodium 141 mmol/L (136-145)
[2018-03-29] MEDS: Losartan 25 MG TAB PO SCH (07:48)
[2018-03-29] MEDS: cloNIDine 0.1 MG TAB PO SCH ×2 (07:49→20:18)
[2018-03-29] MEDS: NIFEdipine XL 60 MG TAB PO SCH (07:50)
[2018-03-29] MEDS: Aripiprazole 10 MG TAB PO SCH (07:50)
[2018-03-29] MEDS: Lubiprostone 24 MCG CAP PO SCH ×2 (07:50→17:04)
[2018-03-29] MEDS: Potassium Chloride 20 MEQ TAB PO SCH ×2 (07:51→17:04)
[2018-03-29] MEDS: FLUoxetine HCl 20 MG CAP PO SCH (07:51)
[2018-03-29] MEDS: hydrALAZINE 25 MG TAB PO SCH ×3 (07:51→20:19)
[2018-03-29] MEDS: Gabapentin 300 MG CAP PO SCH ×2 (07:52→20:21)
[2018-03-29] MEDS: Enoxaparin Sodium 30 MG/0.3 ML SYRINGE SC SCH (07:52)
[2018-03-29] MEDS: Carvedilol 25 MG TAB PO SCH ×2 (07:53→20:19)
[2018-03-29] MEDS: Polyethylene Glycol 3350 17 GM Packet PO SCH (08:04)
[2018-03-29] MEDS ORDERED: Torsemide 20 MG TAB PO SCH (09:00)
--- NOTE | 2018-03-29 09:33 | CT ---
ABDOMEN ND PELVIS CT WITH CONTRAST: INDICATION: Small bowel obstruction with a history of Crohn's and pancreatitis. Abdominal pain. COMPARISON: 03/18/2018 CT abdomen and pelvis. FINDINGS: There is abnormal inflammation of the central abdomen which does encompass portions of the pancreas, therefore likely related to acute pancreatitis. There is scattered mild ascites of the abdomen. The re is mild likely reactive wall thickening of the adjacent distal stomach and duodenum indicating ent eritis. There is abnormal dilatation of contrast, fluid, and air-filled small bowel with decompressi on of distal small bowel to normal caliber. Site of transition likely resides at anastomotic sutures of the low central abdomen. There is moderate retained fecal material of the colon. Small hypodens ities of each kidney are too small to definitively characterize. Bibasilar densities are present wit hin each lung, incompletely evaluated. There is mild pericardial fluid and mild prominence of the ca rdiac chambers. No acute osseous pathology. Evaluation is otherwise grossly stable to the 03/18/2018 CT abdomen and pelvis exam. IMPRESSION: 1. Redemonstration of findings of acute pancreatitis. 2. Evidence of mechanical bowel obstruction with site of transition favored to reside at the low roger tral abdomen at a site of anastomotic suture material. As necessary, this may be further assessed wi th dedicated followup small bowel follow through exam. POS: DEVON
--- NOTE | 2018-03-29 10:06 | PDOC.PN ---
- Subjective Encounter Start Date: 03/29/18 Encounter Start Time: 11:00 Subjective: Patient with abdominal pain improved with NPO and NG tube decompression -: No fever. No N/V. - Objective Resuscitation Status - Order Detail: 03/18/18 11:30 Resuscitation Status Routine Co-Sign Provider: Resuscitation Status: FULL: Full Resuscitation Discussed with: patient and MAR Reviewed: Yes Vital Signs & Weight: Vital Signs (12 hours) Temp Pulse Resp BP Pulse Ox 03/29/18 08:00 93 L 03/29/18 07:51 102 H 03/29/18 07:50 102 H 03/29/18 07:49 159/109 H 03/29/18 07:46 98.4 F 102 H 18 93 L Weight Weight 209 lb 2 oz Most Recent Monitor Data Heart Rate from ECG 87 NIBP 135/75 NIBP BP-Mean 95 Respiration from ECG 18 SpO2 95 I&O: 03/28/18 03/29/18 03/30/18 06:59 06:59 06:59 Intake Total 1210 1380 Output Total 250 Balance 1210 1130 Result Diagrams: 03/28/18 07:25 03/29/18 06:05 Additional Labs: Accuchecks 03/29/18 03/28/18 03/28/18 05:06 19:56 17:12 POC Glucose 136 H 136 H 153 H 03/28/18 11:30 POC Glucose 161 H Phys Exam - Physical Examination Constitutional: NAD HEENT: moist MMs Respiratory: no wheezing, no rales, no rhonchi Cardiovascular: RRR, no significant murmur Gastrointestinal: soft, positive bowel sounds distended, mild TTP Neurological: non-focal, moves all 4 limbs Psychiatric: normal affect, A&O x 3 Dx/Plan (1) Pancreatitis Code(s): K85.90 - ACUTE PANCREATITIS WITHOUT NECROSIS OR INFECTION, UNSP Status: Acute Qualifiers: Chronicity: acute Comment: Possibly medication induced, doxycycline held, GI following. 03/28 - reports abd pain greater than her baseline - Lipase not going back up, XR and CT with small bowel obstruction (2) Acute encephalopathy Code(s): G93.40 - ENCEPHALOPATHY, UNSPECIFIED Status: Resolved Comment: Likely secondary to pancreatitis and chronic medication withdrawl, improved with restarting meds via NG tube. (3) DM type 2 (diabetes mellitus, type 2) Status: Chronic Qualifiers: Diabetes mellitus long-term insulin use: with exterminator use Diabetes mellitus complication status: with kidney complications Diabetes mellitus complication detail: with chronic kidney disease Chronic kidney disease stage : stage 3 (moderate) Qualified Code(s): E11.22 - Type 2 diabetes mellitus with diabetic chronic kidney disease; N18.3 - Chronic kidney disease, stage 3 ( moderate); Z79.4 - senior living (current) use of insulin (4) Diastolic heart failure Code(s): I50.30 - UNSPECIFIED DIASTOLIC (CONGESTIVE) HEART FAILURE Status: Chronic Qualifiers: Heart failure chronicity: acute on chronic Qualified Code(s): I50.33 - Acute on chronic diastolic (congestive) heart failure (5) Hypertension Code(s): I10 - ESSENTIAL (PRIMARY) HYPERTENSION Status: Chronic Qualifiers: Hypertension type: essential hypertension Qualified Code(s): I10 - Essential (primary) hypertension (6) CAD (coronary artery disease) Code(s): I25.10 - ATHSCL HEART DISEASE OF [place] CORONARY ARTERY W/O ANG PCTRS Status: Chronic Qualifiers: Coronary Disease-Associated Artery/Lesion type: [place] artery [place] vs. transplanted heart: [place] heart Associated angina: without angina Qualified Code(s): I25.10 - Atherosclerotic heart disease of [place] coronary artery without angina pectoris (7) Aspiration pneumonitis Code(s): J69.0 - PNEUMONITIS DUE TO INHALATION OF FOOD AND VOMIT Status: Resolved Comment: Abx stopped, appreciate Dr. Burkett's care, appears resolved (8) SBO (small bowel obstruction) Code(s): K56.69 - OTHER INTESTINAL OBSTRUCTION * DO NOT USE * Status: Acute Comment: CT shows obstruction at the site of previous ileal resection, surgery following - Plan cont current plan of care, PT/OT, DVT proph w/lovenox * . - Discharge Day Encounter end time: 11:15
--- NOTE | 2018-03-29 11:58 | PRG ---
DATE OF SERVICE: 03/29/2018 SUBJECTIVE: The patient remains distended and bloated. Pain remains the same. There is no nausea or vomiting. She does have NG-tube decompression. She reports passing small amount of flatus, but no BM. OBJECTIVE: VITAL SIGNS: Temperature 98.4, blood pressure 180/100, and pulse of 102. GENERAL: Today, she is alert, no distress. HEENT: Head exam shows anicteric sclerae. NG-tube aspirate is bilious. NECK: Supple. CV: Shows normal S1 and S2. Regular rate and rhythm. CHEST: Shows a breath sounds. ABDOMEN: Distended and tympanitic. No audible bowel sounds. EXTREMITIES: Shows no edema. LABORATORY DATA: Electrolytes within normal range. Creatinine 1.01. CT does show dilated small bowel with decompressed distal small bowel. This inflammatory change consistent with pancreatitis is present but less. There is stool in the cecum and ascending colon, but no stool for the most of the transverse and down to the descending and rectosigmoid colon. ASSESSMENT: 1. Small bowel obstruction with, likely mechanical. The patient has history of adhesions requiring adhesiolysis in 05/2016. 2. Acute pancreatitis, inflammatory changes appears to be still present, but less compared to admission CT. 3. Constipation, no rectosigmoid impaction with stool mostly in the right colon. 4. Crohn disease in remission. 5. Altered mentation from medication withdrawal, resolved. RECOMMENDATION: 1. Continue with NG tube decompression and n.p.o., hopefully the bowel obstruction can resolve conservatively. 2. Followup KUB in a.m. Job ID: [id number] MTDD
--- NOTE | 2018-03-29 12:03 | PRG ---
DATE OF SERVICE: 03/29/2018 SUBJECTIVE: Ms. Mosqueda feels better today. She is less distended. She has already had her CT scan. Blood pressure is 159/109, pulse 102, O2 saturation 93% on room air. She is afebrile. Multiple voids. NG tube, only 250 overnight. Her abdomen is soft. It is minimally to moderately distended. Diffuse mildly tender without guarding or rebound. LABORATORY DATA: Sodium 141, potassium 3.6, creatinine 1.01. CT scan final read is pending. On my review, there appears to be persistent inflammatory change around the pancreas. There is a significant amount of retained stool in the cecum. ASSESSMENT: 1. Resolving pancreatitis with more retroperitoneal inflammatory change, likely responsible for her bloating and symptoms. 2. Questionable ileus versus fecal impaction secondary to #1. PLAN: Continue supportive care with NG. She would probably benefit from something through the tube to mobilize the stool in her right colon. This may improve her bloating somewhat. Her port could always be used for TPN for nutrition. We will follow with you. Job ID: [id number]
[2018-03-29] MEDS: Doxepin HCl 25 MG CAP PO SCH (20:21)
[2018-03-30] MEDS: Morphine 4 MG/ML VIAL SLOW IVP PRN ×5 (02:58→20:17)
[2018-03-30] MEDS: hydrALAZINE 20 MG/ML VIAL SLOW IVP PRN ×3 (08:34→14:08)
[2018-03-30] MEDS: Lubiprostone 24 MCG CAP PO SCH ×2 (08:38→16:00)
[2018-03-30] MEDS: Potassium Chloride 20 MEQ TAB PO SCH ×2 (08:38→16:00)
[2018-03-30] MEDS: Aripiprazole 10 MG TAB PO SCH (08:39)
[2018-03-30] MEDS: Gabapentin 300 MG CAP PO SCH ×2 (08:39→20:17)
[2018-03-30] MEDS: cloNIDine 0.1 MG TAB PO SCH ×2 (08:39→20:20)
[2018-03-30] MEDS: Carvedilol 25 MG TAB PO SCH ×2 (08:39→20:21)
[2018-03-30] MEDS: FLUoxetine HCl 20 MG CAP PO SCH (08:39)
[2018-03-30] MEDS: NIFEdipine XL 60 MG TAB PO SCH (08:40)
[2018-03-30] MEDS: Losartan 25 MG TAB PO SCH (08:40)
[2018-03-30] MEDS: hydrALAZINE 25 MG TAB PO SCH ×4 (08:40→20:19)
[2018-03-30] MEDS: Polyethylene Glycol 3350 17 GM Packet PO SCH (08:40)
[2018-03-30] MEDS ORDERED: Labetalol HCl 100 MG/20 ML VIAL SLOW IVP PRN (09:52)
--- NOTE | 2018-03-30 09:55 | PDOC.PN ---
- Subjective Encounter Start Date: 03/30/18 Encounter Start Time: 10:40 Subjective: Patient with worsened RLQ abdominal pain with movement this -: AM. NG tube remains in. Had contrast study this morning. - Objective Resuscitation Status - Order Detail: 03/18/18 11:30 Resuscitation Status Routine Co-Sign Provider: Resuscitation Status: FULL: Full Resuscitation Discussed with: patient and MAR Reviewed: Yes Vital Signs & Weight: Vital Signs (12 hours) Temp Pulse Resp BP BP Pulse Ox 03/30/18 08:40 99 170/111 H 03/30/18 08:39 170/111 H 03/30/18 08:34 99 170/111 H 03/30/18 08:00 98.4 F 99 18 93 L 03/30/18 00:51 98.5 F 89 18 151/80 H Weight Weight 209 lb 2 oz Most Recent Monitor Data Heart Rate from ECG 87 NIBP 135/75 NIBP BP-Mean 95 Respiration from ECG 18 SpO2 95 I&O: 03/29/18 03/30/18 03/31/18 06:59 06:59 06:59 Intake Total 1380 Output Total 250 100 Balance 1130 -100 Result Diagrams: 03/28/18 07:25 03/29/18 06:05 Additional Labs: Accuchecks 03/30/18 03/29/18 03/29/18 04:21 20:15 16:36 POC Glucose 131 H 132 H 143 H 03/29/18 11:22 POC Glucose 137 H Phys Exam - Physical Examination Mod distress due to pain HEENT: moist MMs Respiratory: no wheezing, no rales, no rhonchi Cardiovascular: RRR, no significant murmur Gastrointestinal: soft, positive bowel sounds TTP, worse on right, no guarding Musculoskeletal: no edema Neurological: non-focal, moves all 4 limbs Psychiatric: normal affect, A&O x 3 Dx/Plan (1) Pancreatitis Code(s): K85.90 - ACUTE PANCREATITIS WITHOUT NECROSIS OR INFECTION, UNSP Status: Resolved Qualifiers: Chronicity: acute Comment: Possibly medication induced, doxycycline held, GI following. 03/28 - reports abd pain greater than her baseline - Lipase not going back up, XR and CT with small bowel obstruction (2) Acute encephalopathy Code(s): G93.40 - ENCEPHALOPATHY, UNSPECIFIED Status: Resolved Comment: Likely secondary to pancreatitis and chronic medication withdrawl, improved with restarting meds via NG tube. Will need to watch closely for recurrence with resumption of NPO status. (3) DM type 2 (diabetes mellitus, type 2) Status: Chronic Qualifiers: Diabetes mellitus [place] insulin use: with assisted use Diabetes mellitus complication status: with kidney complications Diabetes mellitus complication detail: with chronic kidney disease Chronic kidney disease stage : stage 3 (moderate) Qualified Code(s): E11.22 - Type 2 diabetes mellitus with diabetic chronic kidney disease; N18.3 - Chronic kidney disease, stage 3 ( moderate); Z79.4 - [facility] (current) use of insulin (4) Diastolic heart failure Code(s): I50.30 - UNSPECIFIED DIASTOLIC (CONGESTIVE) HEART FAILURE Status: Chronic Qualifiers: Heart failure chronicity: acute on chronic Qualified Code(s): I50.33 - Acute on chronic diastolic (congestive) heart failure (5) Hypertension Code(s): I10 - ESSENTIAL (PRIMARY) HYPERTENSION Status: Chronic Qualifiers: Hypertension type: essential hypertension Qualified Code(s): I10 - Essential (primary) hypertension Comment: Increase frequency of Hydralazine and add Labetalol prn while NPO to prevent hypertensive emergency (6) CAD (coronary artery disease) Code(s): I25.10 - ATHSCL HEART DISEASE OF [place] CORONARY ARTERY W/O ANG PCTRS Status: Chronic Qualifiers: Coronary Disease-Associated Artery/Lesion type: [place] artery [place] vs. transplanted heart: [place] heart Associated angina: without angina Qualified Code(s): I25.10 - Atherosclerotic heart disease of [place] coronary artery without angina pectoris (7) Aspiration pneumonitis Code(s): J69.0 - PNEUMONITIS DUE TO INHALATION OF FOOD AND VOMIT Status: Resolved Comment: Abx stopped, appreciate Dr. Burkett's care, appears resolved (8) SBO (small bowel obstruction) Code(s): K56.69 - OTHER INTESTINAL OBSTRUCTION * DO NOT USE * Status: Acute Comment: CT shows obstruction at the site of previous ileal resection, lots of stool throughout colon suspicious for possibility of fecal impaction, surgery following - Plan cont current plan of care, PT/OT, DVT proph w/lovenox * . - Discharge Day Encounter end time: 10:50
--- NOTE | 2018-03-30 10:03 | RAD ---
FRONTAL VIEW ABDOMEN KUB: INDICATIONS: History of small bowel obstruction. FINDINGS: There is diffuse contrast throughout the course of the colon, which contains a large volume of retain ed fecal material. There are dilated air-filled loops of small bowel, corresponding to bowel obstruc tion demonstrated on the CT exam from the previous day. An enteric catheter is seen at the left uppe r quadrant. IMPRESSION: Contrast throughout the colon, indicating interval passage from CT examination the prior day. There does remain air-filled dilatation of small bowel. Therefore, given passage of contrast, this may rel ate to a low-grade obstruction. Continued imaging followup may be obtained as clinically necessary. POS: [facility]
[2018-03-30] MEDS ORDERED: Bisacodyl 10 MG SUPP PR SCH (10:22)
[2018-03-30] MEDS ORDERED: MD-Gastroview 120 ML BOT ONE (10:41)
--- NOTE | 2018-03-30 14:00 | RAD ---
SMALL BOWEL STUDY: 03/30/2018 HISTORY: Small bowel obstruction. COMPARISON: Study obtained earlier today, on 03/30/2018, as well as a study on 03/28/2018. FINDINGS: As noted on the study obtained earlier today, the nasogastric tube is in place, with the tip overlyin g the gastric fundus. There is residual contrast seen throughout the colon, related to prior contras laci study. Again noted are dilated loops of small bowel. The approximate transit time of contrast t hrough the colon is 3 hours, with contrast seen in the region of the splenic flexure on the 3-hour im age. There is also persistent contrast within the stomach on the 3-hour image. IMPRESSION: Persistent dilated loops of small bowel. Findings may be related to a low grade partial small bowel obstruction, as there do appear to be more normal caliber distal small bowel loops. An obvious trans ition point is not seen on this examination, although multiple loops of bowel are obscured due to ove rlying contrast within loops of bowel. The approximate transit time of contrast through the small celso wel is 3 hours, as described above. POS: [facility]
[2018-03-30] MEDS: Enoxaparin Sodium 30 MG/0.3 ML SYRINGE SC SCH (14:32)
[2018-03-30] MEDS: Sodium Chloride 0.9% 1,000 ML IV SCH ×2 (14:51→22:26)
[2018-03-30] MEDS: HumaLOG 300 UNITS/3 ML VIAL SC PRN ×2 (17:27→20:22)
[2018-03-30] MEDS: Doxepin HCl 25 MG CAP PO SCH (20:16)
[2018-03-31 07:23] LABS: #Eosinphils 0.1 thou/uL (0.0-0.7); #Lymphocytes 1.5 thou/uL (1.20-3.40); #Monocytes 0.8 thou/uL (0.11-0.59); #Neutrophils 5.9 thou/uL (1.40-6.50); %Basophils 0.2 % (0.0-1.0); %Eosinophils 1.7 % (0.0-10.0); %Lymphocytes 18.1 % (21.0-51.0); %Monocytes 9.7 % (0.0-10.0); %Neutrophils 70.4 % (42.0-75.0); Hemoglobin 11.2 g/dL (12.0-16.0); Mean Corpuscular HGB CONC 33.6 g/dL (32.0-36.0); Mean Corpuscular Hemoglobin 33.1 pg (27.0-31.0); Mean Corpuscular Volume 98.5 fL (78.0-98.0); Mean Platelet Volume 7.6 fL (7.4-10.4); Platelet Count 390 thou/uL (130-400); RBC Distribution Width 14.5 % (11.5-14.5); Red Blood Cell (RBC) Count 3.37 mill/uL (4.20-5.40); White Blood Cell (WBC) Count 8.4 thou/uL (4.8-10.8)
[2018-03-31 07:39] LABS: Anion Gap 11 mmol/L (10-20); BUN (Urea Nitrogen) 5 mg/dL (9.8-20.1); Calc. Creatinine Clearance 92 mL/min (70-130); Calcium 8.2 mg/dL (7.8-10.44); Carbon Dioxide 24 mmol/L (23-31); Chloride 109 mmol/L (98-107); Estimated GFR-MDRD 73; Glucose 135 mg/dL (80-115); Potassium 3.4 mmol/L (3.5-5.1); Sodium 141 mmol/L (136-145)
--- NOTE | 2018-03-31 08:22 | PDOC.PN ---
- Subjective Encounter Start Date: 03/31/18 Encounter Start Time: 10:00 Subjective: Patient with decreased abdominal pain. Tolerating her oral medications -: and some clear liquids. NG tube still in place. - Objective Resuscitation Status - Order Detail: 03/18/18 11:30 Resuscitation Status Routine Co-Sign Provider: Resuscitation Status: FULL: Full Resuscitation Discussed with: patient and MAR Reviewed: Yes Vital Signs & Weight: Vital Signs (12 hours) Temp Pulse Resp BP BP Pulse Ox 03/31/18 07:47 98.7 F 100 18 164/87 H 94 L 03/31/18 04:00 99.0 F 98 20 102/88 94 L 03/31/18 00:00 98.6 F 97 20 152/95 H 93 L Weight Admit Weight 209 lb 2 oz Weight 209 lb 2 oz Most Recent Monitor Data Heart Rate from ECG 87 NIBP 135/75 NIBP BP-Mean 95 Respiration from ECG 18 SpO2 95 I&O: 03/30/18 03/31/18 04/01/18 06:59 06:59 06:59 Output Total 100 200 Balance -100 -200 Result Diagrams: 03/31/18 06:38 03/31/18 06:38 Additional Labs: Accuchecks 03/31/18 03/30/18 03/30/18 04:54 19:48 16:35 POC Glucose 118 H 205 H 233 H 03/30/18 11:38 POC Glucose 117 H Phys Exam - Physical Examination Constitutional: NAD HEENT: moist MMs Respiratory: no wheezing, no rales, no rhonchi Cardiovascular: RRR, no significant murmur Gastrointestinal: soft, positive bowel sounds distended Neurological: non-focal, moves all 4 limbs Psychiatric: normal affect, A&O x 3 Dx/Plan (1) SBO (small bowel obstruction) Code(s): K56.69 - OTHER INTESTINAL OBSTRUCTION * DO NOT USE * Status: Acute Comment: CT shows obstruction at the site of previous ileal resection, surgery following, very good stool output (2) Pancreatitis Code(s): K85.90 - ACUTE PANCREATITIS WITHOUT NECROSIS OR INFECTION, UNSP Status: Resolved Qualifiers: Chronicity: acute Comment: Possibly medication induced, doxycycline held, GI following. 03/28 - reports abd pain greater than her baseline - Lipase not going back up, XR and CT with small bowel obstruction (3) Acute encephalopathy Code(s): G93.40 - ENCEPHALOPATHY, UNSPECIFIED Status: Resolved Comment: Likely secondary to pancreatitis and chronic medication withdrawl, improved with restarting meds via NG tube. Will need to watch closely for recurrence with resumption of NPO status. 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 mellitus usp insulin use: with termination clerk use Diabetes mellitus complication status: with kidney complications Diabetes mellitus complication detail: with chronic kidney disease Chronic kidney disease stage : stage 3 (moderate) Qualified Code(s): E11.22 - Type 2 diabetes mellitus with diabetic chronic kidney disease; N18.3 - Chronic kidney disease, stage 3 ( moderate); Z79.4 - USP (current) use of insulin (5) Diastolic heart failure Code(s): I50.30 - UNSPECIFIED DIASTOLIC (CONGESTIVE) HEART FAILURE Status: Chronic Qualifiers: Heart failure chronicity: acute on chronic Qualified Code(s): I50.33 - Acute on chronic diastolic (congestive) heart failure (6) Hypertension Code(s): I10 - ESSENTIAL (PRIMARY) HYPERTENSION Status: Chronic Qualifiers: Hypertension type: essential hypertension Qualified Code(s): I10 - Essential (primary) hypertension Comment: Increase frequency of Hydralazine and add Labetalol prn while NPO to prevent hypertensive emergency (7) CAD (coronary artery disease) Code(s): I25.10 - ATHSCL HEART DISEASE OF [place] CORONARY ARTERY W/O ANG PCTRS Status: Chronic Qualifiers: Coronary Disease-Associated Artery/Lesion type: [place] artery [place] vs. transplanted heart: [place] heart Associated angina: without angina Qualified Code(s): I25.10 - Atherosclerotic heart disease of [place] coronary artery without angina pectoris (8) Aspiration pneumonitis Code(s): J69.0 - PNEUMONITIS DUE TO INHALATION OF FOOD AND VOMIT Status: Resolved Comment: Abx stopped, appreciate Dr. Burkett's care, appears resolved (9) Hypokalemia Code(s): E87.6 - HYPOKALEMIA Status: Acute Comment: replacing - Plan cont current plan of care, PT/OT, DVT proph w/lovenox * . - Discharge Day Encounter end time: 10:15
[2018-03-31] MEDS ORDERED: Potassium Chloride 20 MEQ/100 ML PREMIX BAG IVPB SCH (08:30)
--- NOTE | 2018-03-31 08:39 | PRG ---
DATE OF SERVICE: 03/30/2018 SUBJECTIVE: Ms. Mosqueda is sitting on the toilet. She said the nurses that she found bunch of liquidy stool. Today, she had a small-bowel follow-through that showed some ill-defined transition area in mid to distal small bowel due to the previous contrast in the previous study. This could not be determined exactly where it is, but there is contrast in the colon. She denies any abdominal pain. She is already eating and drinking some. OBJECTIVE: VITAL SIGNS: Pulse 99, temperature 98.4, and blood pressure 185/120. LUNGS: Clear. HEART: Regular rate and rhythm without clicks or murmurs. ABDOMEN: Soft, obese, but is nontender. EXTREMITIES: No clubbing, cyanosis, or edema. LABORATORY DATA: None today except for glucose 117. ASSESSMENT: 1. Partial small bowel obstruction. 2. Crohn disease. 3. History of psychiatric disorder. 4. Hypertension. PLAN: We are going to go ahead and start her on oral medications now. She told the nurse that she can start oral antihypertensives. We will clamp the NG tube and start her on some clear liquids. Job ID: [id number]
[2018-03-31] MEDS: Lubiprostone 24 MCG CAP PO SCH ×2 (08:43→16:30)
[2018-03-31] MEDS: Losartan 25 MG TAB PO SCH (08:43)
[2018-03-31] MEDS: Gabapentin 300 MG CAP PO SCH ×2 (08:44→21:18)
[2018-03-31] MEDS: Polyethylene Glycol 3350 17 GM Packet PO SCH (08:44)
[2018-03-31] MEDS: cloNIDine 0.1 MG TAB PO SCH ×2 (08:45→21:17)
[2018-03-31] MEDS: Carvedilol 25 MG TAB PO SCH ×2 (08:46→21:19)
[2018-03-31] MEDS: FLUoxetine HCl 20 MG CAP PO SCH (08:46)
[2018-03-31] MEDS: Aripiprazole 10 MG TAB PO SCH (08:47)
[2018-03-31] MEDS: NIFEdipine XL 60 MG TAB PO SCH (08:47)
[2018-03-31] MEDS: hydrALAZINE 25 MG TAB PO SCH ×3 (08:47→21:18)
[2018-03-31] MEDS: Enoxaparin Sodium 30 MG/0.3 ML SYRINGE SC SCH (08:48)
[2018-03-31] MEDS: Potassium Chloride 20 MEQ TAB PO SCH ×2 (08:48→16:30)
[2018-03-31] MEDS: Morphine 4 MG/ML VIAL SLOW IVP PRN ×3 (08:49→21:17)
--- NOTE | 2018-03-31 09:50 | RAD ---
KUB: Comparison: 03-30-18 History: Small bowel obstruction. Follow up exam. FINDINGS: Single view of the abdomen shows air filled loops of large and small bowel. Contrast is seen in the c olon all the way to the level of the rectum. An NG tube is seen in the stomach. A tube is seen projec ting over the right abdominal wall which could represent a feeding tube. IMPRESSION: Air filled loops of large and small bowel may be secondary to ileus or partial small bowel obstructio n. POS: [facility]
[2018-03-31] MEDS: Sodium Chloride 0.9% 1,000 ML IV SCH ×2 (10:47→16:30)
--- NOTE | 2018-03-31 13:15 | PRG ---
DATE OF SERVICE: 03/31/2018 SUBJECTIVE: The patient complains of bloating and abdominal pain, more so than baseline. There is no nausea or vomiting. NG tube has been clamped since yesterday. She has passed large amount of stool with Gastrografin yesterday. Had 2 liquid bowel movements this morning. OBJECTIVE: VITAL SIGNS: Temperature is 98.6, blood pressure 128/85, pulse of 91. GENERAL: She is alert and comfortable in the bed, in no distress. HEENT: Shows anicteric sclerae. Oropharynx showed red tongue probably from Gastrografin. NECK: Supple. CV: Shows normal S1 and S2. Regular rate and rhythm. CHEST: Shows breath sounds. ABDOMEN: Distended and tympanitic. She does have trickling bowel sounds. EXTREMITIES: Show no edema. LABORATORY DATA: WBC is 8.4, hemoglobin 11.2, platelet count of 390. Electrolytes are within normal range. Creatinine 0.94. Small bowel series yesterday showed dilated loop of small bowel with normal distal small bowel with transition point could not be localized. Gastrografin did reach the colon in 3 hours. KUB this morning after the NG tube has been clamped for 24 hours, still showed dilated small-bowel loops. There is some residual stool mostly in the right colon, but most have been evacuated. ASSESSMENT: 1. Small-bowel obstruction, ileus versus mechanical. Contrast did reach the cecum. However, x-ray, still persistently dilated bowel loops. 2. Severe obstipation, fair to good evacuation with Gastrografin yesterday. 3. Acute pancreatitis, undetermined etiology, resolving. 4. Acute mental status change from medication withdrawal, resolved. 5. Diabetes/hypertension/diastolic heart failure/coronary artery disease. RECOMMENDATION: 1. We will reconnect NG tube to low intermittent suction. 2. Increase out of bed ambulation to 3 to 4 times daily. 3. We will start on TPN for nutritional support as the patient has not had any meaningful nutrition since admission. 4. Conservative therapy for now. Job ID: [id number]
[2018-03-31 19:00] LABS: ALT (SGPT) 8 U/L (8-55); AST (SGOT) 15 U/L (5-34); Albumin 2.9 g/dL (3.4-4.8); Alkaline Phosphatase 138 U/L (40-150); Anion Gap 15 mmol/L (10-20); BUN (Urea Nitrogen) 5 mg/dL (9.8-20.1); Bilirubin, Total 0.3 mg/dL (0.2-1.2); Calc. Creatinine Clearance 78 mL/min (70-130); Calcium 8.8 mg/dL (7.8-10.44); Carbon Dioxide 22 mmol/L (23-31); Cardiac Risk 4.7 (Less than 4.5); Chloride 109 mmol/L (98-107); Cholesterol 132 mg/dl (< 200 Desired); Estimated GFR-MDRD 61; Globulin 3.8 g/dL (2.4-3.5); Glucose 123 mg/dL (80-115); HDL Cholesterol 28 mg/dL (>60 Neg Risk); LDL Cholesterol, Calculated 74 mg/dL; Magnesium 1.7 mg/dL (1.6-2.6); Phosphorus 2.3 mg/dL (2.3-4.7); Potassium 4.2 mmol/L (3.5-5.1); Protein, Total 6.7 g/dL (6.0-8.3); Sodium 142 mmol/L (136-145); Triglycerides 152 mg/dL (Less than 150)
[2018-03-31 19:49] LABS: INR-International Normal Ratio 1.1; PTT 43.3 SEC (22.9-36.1); Prothrombin Time 14.2 SEC (12.0-14.7)
[2018-03-31] MEDS: Doxepin HCl 25 MG CAP PO SCH (21:19)
[2018-03-31] MEDS: MULTIVITAMINS IV SCH (22:22)
[2018-03-31] MEDS: D15W AA 5% IV SCH (22:22)
[2018-03-31] MEDS: [UNRECOGNIZED DRUG - OTHER] IV SCH (22:22)
[2018-03-31] MEDS: HUMULIN R IV SCH (22:22)
[2018-03-31] MEDS: MULTITRACE IV SCH (22:22)
[2018-04-01] MEDS: Morphine 4 MG/ML VIAL SLOW IVP PRN ×4 (05:06→20:11)
[2018-04-01] MEDS: Ondansetron PF 4 MG/2 ML Vial IVP PRN ×3 (06:39→20:12)
[2018-04-01 07:11] LABS: #Eosinphils 0.2 thou/uL (0.0-0.7); #Lymphocytes 1.3 thou/uL (1.20-3.40); #Monocytes 0.7 thou/uL (0.11-0.59); #Neutrophils 7.1 thou/uL (1.40-6.50); %Basophils 0.2 % (0.0-1.0); %Eosinophils 1.8 % (0.0-10.0); %Lymphocytes 14.2 % (21.0-51.0); %Monocytes 7.8 % (0.0-10.0); %Neutrophils 76.1 % (42.0-75.0); Hemoglobin 11.4 g/dL (12.0-16.0); Mean Corpuscular HGB CONC 33.5 g/dL (32.0-36.0); Mean Corpuscular Hemoglobin 33.3 pg (27.0-31.0); Mean Corpuscular Volume 99.2 fL (78.0-98.0); Mean Platelet Volume 7.3 fL (7.4-10.4); Platelet Count 422 thou/uL (130-400); RBC Distribution Width 14.5 % (11.5-14.5); Red Blood Cell (RBC) Count 3.42 mill/uL (4.20-5.40); White Blood Cell (WBC) Count 9.3 thou/uL (4.8-10.8)
--- NOTE | 2018-04-01 08:49 | PDOC.PN ---
- Subjective Encounter Start Date: 04/01/18 Encounter Start Time: 10:50 Subjective: Patient reports some improvement in pain with NG tube placement. -: TPN running. No other complaints. - Objective Resuscitation Status - Order Detail: 03/18/18 11:30 Resuscitation Status Routine Co-Sign Provider: Resuscitation Status: FULL: Full Resuscitation Discussed with: patient and MAR Reviewed: Yes Vital Signs & Weight: Vital Signs (12 hours) Temp Pulse Resp BP BP Pulse Ox 04/01/18 08:04 98.7 F 107 H 22 H 146/88 H 91 L 04/01/18 05:31 98.9 F 103 H 20 160/98 H 93 L 03/31/18 21:18 99 03/31/18 21:17 163/97 H Weight Admit Weight 209 lb 2 oz Weight 209 lb 2 oz Most Recent Monitor Data Heart Rate from ECG 87 NIBP 135/75 NIBP BP-Mean 95 Respiration from ECG 18 SpO2 95 I&O: 03/31/18 04/01/18 04/02/18 06:59 06:59 06:59 Intake Total 1140 Output Total 200 1850 Balance -200 -710 Result Diagrams: 04/01/18 06:37 03/31/18 18:28 Additional Labs: Accuchecks 04/01/18 03/31/18 03/31/18 05:35 19:46 16:49 POC Glucose 146 H 122 H 109 03/31/18 11:34 POC Glucose 181 H Phys Exam - Physical Examination Constitutional: NAD HEENT: moist MMs NGtube in place on low intermittent suction Respiratory: no wheezing, no rales, no rhonchi Cardiovascular: RRR, no significant murmur Gastrointestinal: soft, positive bowel sounds distended, mild TTP Musculoskeletal: no edema Neurological: non-focal, moves all 4 limbs Psychiatric: normal affect, A&O x 3 Dx/Plan (1) SBO (small bowel obstruction) Code(s): K56.69 - OTHER INTESTINAL OBSTRUCTION * DO NOT USE * Status: Acute Comment: CT shows obstruction at the site of previous ileal resection, surgery following, very good stool output. Still with persistent ileus, NGT replaced and TPN started last night. (2) Pancreatitis Code(s): K85.90 - ACUTE PANCREATITIS WITHOUT NECROSIS OR INFECTION, UNSP Status: Resolved Qualifiers: Chronicity: acute Comment: Possibly medication induced, doxycycline held, GI following. 03/28 - reports abd pain greater than her baseline - Lipase not going back up, XR and CT with small bowel obstruction (3) Acute encephalopathy Code(s): G93.40 - ENCEPHALOPATHY, UNSPECIFIED Status: Resolved Comment: Likely secondary to pancreatitis and chronic medication withdrawl, improved with restarting meds via NG tube. Will need to watch closely for recurrence with resumption of NPO status. 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 use Diabetes mellitus complication status: with kidney complications Diabetes mellitus complication detail: with chronic kidney disease Chronic kidney disease stage : stage 3 (moderate) Qualified Code(s): E11.22 - Type 2 diabetes mellitus with diabetic chronic kidney disease; N18.3 - Chronic kidney disease, stage 3 ( moderate); Z79.4 - technician terminal and repeater (current) use of insulin (5) Diastolic heart failure Code(s): I50.30 - UNSPECIFIED DIASTOLIC (CONGESTIVE) HEART FAILURE Status: Chronic Qualifiers: Heart failure chronicity: acute on chronic Qualified Code(s): I50.33 - Acute on chronic diastolic (congestive) heart failure (6) Hypertension Code(s): I10 - ESSENTIAL (PRIMARY) HYPERTENSION Status: Chronic Qualifiers: Hypertension type: essential hypertension Qualified Code(s): I10 - Essential (primary) hypertension Comment: Increase frequency of Hydralazine and add Labetalol prn while NPO to prevent hypertensive emergency (7) CAD (coronary artery disease) Code(s): I25.10 - ATHSCL HEART DISEASE OF [place] CORONARY ARTERY W/O ANG PCTRS Status: Chronic Qualifiers: Coronary Disease-Associated Artery/Lesion type: [place] artery [place] vs. transplanted heart: [place] heart Associated angina: without angina Qualified Code(s): I25.10 - Atherosclerotic heart disease of [place] coronary artery without angina pectoris (8) Aspiration pneumonitis Code(s): J69.0 - PNEUMONITIS DUE TO INHALATION OF FOOD AND VOMIT Status: Resolved Comment: Abx stopped, appreciate Dr. Burkett's care, appears resolved (9) Hypokalemia Code(s): E87.6 - HYPOKALEMIA Status: Acute Comment: replacing - Plan cont current plan of care, PT/OT, DVT proph w/lovenox creatinine has normalized, will redose lovenox * . - Discharge Day Encounter end time: 11:00
--- NOTE | 2018-04-01 09:48 | RAD ---
ABDOMEN ONE VIEW: History: Abdominal pain. Partial obstruction. Comparison: 03-31-18 FINDINGS: Gas and stool are apparent within the colon with partial clearing of the distal colon contrast. Small bowel has decompressed with minimal gaseous distention in the left abdomen. Nasogastric tube remains in place. IMPRESSION: Continued decompression of the bowel. No evidence of high grade obstruction. POS: [facility]
[2018-04-01] MEDS: Potassium Chloride 20 MEQ TAB PO SCH ×2 (10:20→15:48)
[2018-04-01] MEDS: Aripiprazole 10 MG TAB PO SCH (10:20)
[2018-04-01] MEDS: cloNIDine 0.1 MG TAB PO SCH ×2 (10:20→20:07)
[2018-04-01] MEDS: Lubiprostone 24 MCG CAP PO SCH ×2 (10:20→15:49)
[2018-04-01] MEDS: Carvedilol 25 MG TAB PO SCH ×2 (10:20→20:07)
[2018-04-01] MEDS: FLUoxetine HCl 20 MG CAP PO SCH (10:21)
[2018-04-01] MEDS: NIFEdipine XL 60 MG TAB PO SCH (10:21)
[2018-04-01] MEDS: hydrALAZINE 25 MG TAB PO SCH ×3 (10:21→20:08)
[2018-04-01] MEDS: Gabapentin 300 MG CAP PO SCH ×2 (10:21→20:07)
[2018-04-01] MEDS: Losartan 25 MG TAB PO SCH (10:21)
[2018-04-01] MEDS: Polyethylene Glycol 3350 17 GM Packet PO SCH (10:22)
[2018-04-01] MEDS ORDERED: Bisacodyl 10 MG SUPP PR SCH (11:45)
--- NOTE | 2018-04-01 12:19 | PRG ---
DATE OF SERVICE: 04/01/2018 SUBJECTIVE: The patient feels less bloated. There is no nausea or vomiting. NG tube is very bothersome. She did have a small bowel movement this morning. OBJECTIVE: VITAL SIGNS: Temperature is 98.7, blood pressure 146/88, pulse of 107. GENERAL: She is alert, sitting up. In no distress. HEENT: Anicteric sclerae. NG tube through the nostril with bilious aspirate. NECK: Supple. CV: Normal S1 and S2. Regular rate and rhythm. CHEST: Breath sounds. ABDOMEN: Protuberant, less tympanitic than yesterday. She does have bowel sounds. EXTREMITIES: No edema. LABORATORY DATA: WBCs 7.3, hemoglobin 11.4, platelet count of 422. Electrolytes within normal range. Creatinine 1.10. Albumin is 2.9, calcium 8.8, phosphorus 2.3, magnesium 1.7. KUB showed resolution of distended small bowels. Residual contrast seen in the right colon. ASSESSMENT: 1. Small bowel obstruction, ileus versus mechanical. Clinically and radiographically much better. Appears to be resolving. 2. Severe constipation, status post good evacuation. 3. Acute pancreatitis of undetermined etiology, resolving. 4. Status post acute mental status change and psychosis from medication withdrawal, resolved. 5. Diabetes/hypertension/diastolic heart failure/coronary artery disease, stable. RECOMMENDATIONS: 1. Remove NG tube as her small-bowel obstruction appears to be much better and tube is very bothersome, may need to be replaced if distention recurs. 2. Repeat KUB in a.m. 3. In the meantime, we will increase ambulation and Dulcolax suppository post-stimulatory effect. 4. Continue TPN for nutritional support, trial of clear liquids today. Job ID: [id number]
[2018-04-01] MEDS: Ondansetron ODT 4 MG TAB PO PRN (15:49)
[2018-04-01] MEDS: Enoxaparin Sodium 40 MG/0.4 ML SYRINGE SC SCH (15:50)
[2018-04-01] MEDS: Sodium Chloride 0.9% 1,000 ML IV SCH (15:54)
[2018-04-01] MEDS: Doxepin HCl 25 MG CAP PO SCH (20:14)
[2018-04-01] MEDS: MULTITRACE IV SCH (22:22)
[2018-04-01] MEDS: [UNRECOGNIZED DRUG - OTHER] IV SCH (22:22)
[2018-04-01] MEDS: D15W AA 5% IV SCH (22:22)
[2018-04-01] MEDS: MULTIVITAMINS IV SCH (22:22)
[2018-04-01] MEDS: HUMULIN R IV SCH (22:22)
[2018-04-02] MEDS: Sodium Chloride 0.9% 1,000 ML IV SCH ×2 (02:48→16:31)
[2018-04-02 07:07] LABS: #Eosinphils 0.2 thou/uL (0.0-0.7); #Lymphocytes 1.8 thou/uL (1.20-3.40); #Monocytes 0.7 thou/uL (0.11-0.59); #Neutrophils 3.8 thou/uL (1.40-6.50); %Basophils 0.3 % (0.0-1.0); %Lymphocytes 28.1 % (21.0-51.0); %Monocytes 10.9 % (0.0-10.0); %Neutrophils 57.7 % (42.0-75.0); Hemoglobin 10.7 g/dL (12.0-16.0); Mean Corpuscular HGB CONC 32.7 g/dL (32.0-36.0); Mean Corpuscular Hemoglobin 32.3 pg (27.0-31.0); Mean Corpuscular Volume 98.7 fL (78.0-98.0); Mean Platelet Volume 7.4 fL (7.4-10.4); Platelet Count 435 thou/uL (130-400); RBC Distribution Width 14.2 % (11.5-14.5); Red Blood Cell (RBC) Count 3.31 mill/uL (4.20-5.40); White Blood Cell (WBC) Count 6.5 thou/uL (4.8-10.8)
[2018-04-02 07:28] LABS: Anion Gap 12 mmol/L (10-20); BUN (Urea Nitrogen) 13 mg/dL (9.8-20.1); Calc. Creatinine Clearance 91 mL/min (70-130); Calcium 8.6 mg/dL (7.8-10.44); Carbon Dioxide 24 mmol/L (23-31); Chloride 107 mmol/L (98-107); Estimated GFR-MDRD 72; Glucose 139 mg/dL (80-115); Sodium 139 mmol/L (136-145)
--- NOTE | 2018-04-02 07:47 | PDOC.PN ---
- Subjective Encounter Start Date: 04/02/18 Encounter Start Time: 10:30 Subjective: Patient reports tolerating clear liquids ok. Some abdominal distension but -: not as bad. 2 liquid BM yesterday. - Objective Resuscitation Status - Order Detail: 03/18/18 11:30 Resuscitation Status Routine Co-Sign Provider: Resuscitation Status: FULL: Full Resuscitation Discussed with: patient and MAR Reviewed: Yes Vital Signs & Weight: Vital Signs (12 hours) Temp Pulse Resp BP Pulse Ox 04/02/18 00:00 98.0 F 88 16 145/92 H 96 04/01/18 22:51 98 04/01/18 20:20 98.5 F 104 H 18 187/98 H 98 Weight Admit Weight 209 lb 2 oz Weight 209 lb 2 oz Most Recent Monitor Data Heart Rate from ECG 87 NIBP 135/75 NIBP BP-Mean 95 Respiration from ECG 18 SpO2 95 I&O: 04/01/18 04/02/18 04/03/18 06:59 06:59 06:59 Intake Total 1140 1284 Output Total 1850 Balance -710 1284 Result Diagrams: 04/02/18 05:58 04/02/18 05:58 Additional Labs: Accuchecks 04/02/18 04/01/18 04/01/18 05:08 20:18 16:25 POC Glucose 145 H 117 H 152 H 04/01/18 11:29 POC Glucose 149 H Phys Exam - Physical Examination Constitutional: NAD HEENT: moist MMs Respiratory: no wheezing, no rales, no rhonchi Cardiovascular: RRR, no significant murmur Gastrointestinal: soft, positive bowel sounds distended, mild TTP diffusely Musculoskeletal: no edema Neurological: non-focal, moves all 4 limbs Psychiatric: normal affect, A&O x 3 Dx/Plan (1) SBO (small bowel obstruction) Code(s): K56.69 - OTHER INTESTINAL OBSTRUCTION * DO NOT USE * Status: Acute Comment: CT shows obstruction at the site of previous ileal resection, surgery following, very good stool output. Obstruction improving so NG tube removed yest and attempting clears. Currently receiving TPN. (2) Pancreatitis Code(s): K85.90 - ACUTE PANCREATITIS WITHOUT NECROSIS OR INFECTION, UNSP Status: Resolved Qualifiers: Chronicity: acute Comment: Possibly medication induced, doxycycline held, GI following. 03/28 - reports abd pain greater than her baseline - Lipase not going back up, XR and CT with small bowel obstruction (3) Acute encephalopathy Code(s): G93.40 - ENCEPHALOPATHY, UNSPECIFIED Status: Resolved Comment: Likely secondary to pancreatitis and chronic medication withdrawl, improved with restarting meds via NG tube. Will need to watch closely for recurrence whenever she is NPO. 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 Diabetes mellitus complication status: with kidney complications Diabetes mellitus complication detail: with chronic kidney disease Chronic kidney disease stage : stage 3 (moderate) Qualified Code(s): E11.22 - Type 2 diabetes mellitus with diabetic chronic kidney disease; N18.3 - Chronic kidney disease, stage 3 ( moderate); Z79.4 - USP (current) use of insulin (5) Diastolic heart failure Code(s): I50.30 - UNSPECIFIED DIASTOLIC (CONGESTIVE) HEART FAILURE Status: Chronic Qualifiers: Heart failure chronicity: acute on chronic Qualified Code(s): I50.33 - Acute on chronic diastolic (congestive) heart failure (6) Hypertension Code(s): I10 - ESSENTIAL (PRIMARY) HYPERTENSION Status: Chronic Qualifiers: Hypertension type: essential hypertension Qualified Code(s): I10 - Essential (primary) hypertension Comment: Increase frequency of Hydralazine and add Labetalol prn while NPO to prevent hypertensive emergency (7) CAD (coronary artery disease) Code(s): I25.10 - ATHSCL HEART DISEASE OF [place] CORONARY ARTERY W/O ANG PCTRS Status: Chronic Qualifiers: Coronary Disease-Associated Artery/Lesion type: [place] artery [place] vs. transplanted heart: [place] heart Associated angina: without angina Qualified Code(s): I25.10 - Atherosclerotic heart disease of [place] coronary artery without angina pectoris (8) Aspiration pneumonitis Code(s): J69.0 - PNEUMONITIS DUE TO INHALATION OF FOOD AND VOMIT Status: Resolved Comment: Abx stopped, appreciate Dr. Burkett's care, appears resolved (9) Hypokalemia Code(s): E87.6 - HYPOKALEMIA Status: Resolved Comment: replacing (10) Acute renal failure Status: Resolved - Plan cont current plan of care, PT/OT, DVT proph w/lovenox Advance po intake as tolerated. * . - Discharge Day Encounter end time: 10:40
[2018-04-02] MEDS: Lubiprostone 24 MCG CAP PO SCH ×2 (08:00→16:31)
[2018-04-02] MEDS: Losartan 25 MG TAB PO SCH (08:00)
[2018-04-02] MEDS: NIFEdipine XL 60 MG TAB PO SCH (08:00)
[2018-04-02] MEDS: Carvedilol 25 MG TAB PO SCH ×2 (08:01→20:13)
[2018-04-02] MEDS: Aripiprazole 10 MG TAB PO SCH (08:01)
[2018-04-02] MEDS: cloNIDine 0.1 MG TAB PO SCH ×2 (08:01→20:13)
[2018-04-02] MEDS: hydrALAZINE 25 MG TAB PO SCH ×3 (08:02→20:14)
[2018-04-02] MEDS: Gabapentin 300 MG CAP PO SCH ×2 (08:03→20:14)
[2018-04-02] MEDS: FLUoxetine HCl 20 MG CAP PO SCH (08:03)
[2018-04-02] MEDS: Potassium Chloride 20 MEQ TAB PO SCH ×2 (08:03→16:31)
[2018-04-02] MEDS: Polyethylene Glycol 3350 17 GM Packet PO SCH (08:04)
[2018-04-02] MEDS: Enoxaparin Sodium 40 MG/0.4 ML SYRINGE SC SCH (08:04)
[2018-04-02] MEDS: Morphine 4 MG/ML VIAL SLOW IVP PRN ×3 (08:20→20:12)
--- NOTE | 2018-04-02 09:05 | RAD ---
ABDOMINAL RADIOGRAPH FRONTAL VIEW KUB: CLINICAL INDICATIONS: History of abdominal pain with partial bowel obstruction. Followup. COMPARISON: Previous day. FINDINGS: Contrast opacification is seen throughout the majority of the course of the colon. The bowel gas pat tern is grossly stable. There is otherwise no significant interval change. IMPRESSION: Contrast traverses to the distal colon. There remains no abnormal distention of scattered loops of a ir-filled small bowel. No abnormal bowel dilatation current demonstrated. POS: [facility]
[2018-04-02] MEDS: Ondansetron PF 4 MG/2 ML Vial IVP PRN ×3 (09:11→20:09)
--- NOTE | 2018-04-02 11:32 | PRG ---
DATE OF SERVICE: 04/02/2018 SUBJECTIVE: The patient feels better this morning. She tolerated clear liquids yesterday except for the Jell-O, which makes her nauseated. She had 2 liquid bowel movements. Bloating and distention are much less. OBJECTIVE: VITAL SIGNS: Temperature is 98.7, blood pressure 180/90, pulse of 95. GENERAL: She is alert, in no distress. HEENT: Shows anicteric sclerae. Oropharynx is clear. CV: Shows normal S1 and S2. Regular rate and rhythm. CHEST: Shows breath sounds. ABDOMEN: Much less distended. There is no tympany. She has bowel sounds. Mild diffuse tenderness. EXTREMITIES: Show trace pedal and pretibial edema. LABORATORY DATA: WBC 6.5, hemoglobin 10.7, and platelet count of 435. Electrolytes within normal range. Creatinine is 0.95. KUB does not show any small bowel dilation. There is some residual contrast in proximal colon. No significant stool. ASSESSMENT: 1. Small bowel obstruction, ileus versus mechanical. Clinically and radiographically resolved. The patient is tolerating clear liquids. 2. History of chronic constipation, recently severe with good evacuation. 3. Acute pancreatitis of undetermined etiology, resolving. 4. Status post acute mental status change and psychosis from medication withdrawal, resolved. 5. Hypertension/diabetes/heart failure/coronary artery disease, clinically stable. RECOMMENDATIONS: 1. We will advance to full liquid then more regular diet. 2. Continue with ambulation, at least 4 times around the floor if not more today. 3. Continue TPN for nutritional support in the meantime. 4. Hopefully, the patient can be discharged to home once she can tolerate a regular diet. Job ID: [id number]
[2018-04-02] MEDS: Doxepin HCl 25 MG CAP PO SCH (20:13)
[2018-04-02] MEDS: D15W AA 5% IV SCH (22:18)
[2018-04-02] MEDS: [UNRECOGNIZED DRUG - OTHER] IV SCH (22:18)
[2018-04-02] MEDS: HUMULIN R IV SCH (22:18)
[2018-04-02] MEDS: MULTIVITAMINS IV SCH (22:18)
[2018-04-02] MEDS: MULTITRACE IV SCH (22:18)
[2018-04-03 06:04] LABS: #Eosinphils 0.2 thou/uL (0.0-0.7); #Lymphocytes 1.7 thou/uL (1.20-3.40); #Monocytes 0.7 thou/uL (0.11-0.59); #Neutrophils 3.5 thou/uL (1.40-6.50); %Basophils 0.6 % (0.0-1.0); %Eosinophils 3.2 % (0.0-10.0); %Lymphocytes 28.2 % (21.0-51.0); %Monocytes 10.8 % (0.0-10.0); %Neutrophils 57.3 % (42.0-75.0); Hemoglobin 11.3 g/dL (12.0-16.0); Mean Corpuscular HGB CONC 33.1 g/dL (32.0-36.0); Mean Corpuscular Hemoglobin 33.2 pg (27.0-31.0); Mean Platelet Volume 7.1 fL (7.4-10.4); Platelet Count 440 thou/uL (130-400); RBC Distribution Width 14.3 % (11.5-14.5); White Blood Cell (WBC) Count 6.1 thou/uL (4.8-10.8)
[2018-04-03] MEDS: Sodium Chloride 0.9% 1,000 ML IV SCH ×2 (06:27→20:53)
[2018-04-03 06:33] LABS: Anion Gap 13 mmol/L (10-20); BUN (Urea Nitrogen) 16 mg/dL (9.8-20.1); Calc. Creatinine Clearance 83 mL/min (70-130); Calcium 8.6 mg/dL (7.8-10.44); Carbon Dioxide 22 mmol/L (23-31); Chloride 107 mmol/L (98-107); Estimated GFR-MDRD 65; Glucose 162 mg/dL (80-115); Potassium 4.4 mmol/L (3.5-5.1); Sodium 138 mmol/L (136-145)
[2018-04-03] MEDS: Morphine 4 MG/ML VIAL SLOW IVP PRN ×3 (06:54→17:44)
[2018-04-03] MEDS: Ondansetron PF 4 MG/2 ML Vial IVP PRN ×2 (06:54→17:44)
[2018-04-03] MEDS: Potassium Chloride 20 MEQ TAB PO SCH ×2 (08:25→17:41)
[2018-04-03] MEDS: Aripiprazole 10 MG TAB PO SCH (08:25)
[2018-04-03] MEDS: Polyethylene Glycol 3350 17 GM Packet PO SCH (08:25)
[2018-04-03] MEDS: NIFEdipine XL 60 MG TAB PO SCH (08:26)
[2018-04-03] MEDS: Losartan 25 MG TAB PO SCH (08:26)
[2018-04-03] MEDS: FLUoxetine HCl 20 MG CAP PO SCH (08:26)
[2018-04-03] MEDS: Carvedilol 25 MG TAB PO SCH ×2 (08:27→20:17)
[2018-04-03] MEDS: hydrALAZINE 25 MG TAB PO SCH ×3 (08:27→20:18)
[2018-04-03] MEDS: Lubiprostone 24 MCG CAP PO SCH ×2 (08:27→17:41)
[2018-04-03] MEDS: Enoxaparin Sodium 40 MG/0.4 ML SYRINGE SC SCH (08:28)
[2018-04-03] MEDS: Gabapentin 300 MG CAP PO SCH ×2 (08:28→20:17)
[2018-04-03] MEDS: cloNIDine 0.1 MG TAB PO SCH ×2 (08:33→20:17)
--- NOTE | 2018-04-03 09:17 | PRG ---
DATE OF SERVICE: 04/03/2018 SUBJECTIVE: The patient is seen and examined at bedside. She has complains about abdominal pain in the lower parts. No nausea. No vomiting. OBJECTIVE: VITAL SIGNS: Blood pressure is 133/84, pulse is 98, temperature 98.7, respirations 20, O2 saturation 96% on room air. HEENT: Her head is atraumatic and normocephalic. Eyes are PERRLA. Sclerae are nonicteric. Oral mucosa is somewhat dry. NECK: Supple. No lymphadenopathy. LUNGS: Clear. HEART: S1 and S2 normal. No S3. No S4. No any murmur. ABDOMEN: Obese, somewhat distended, mildly tender to palpation in the lower parts of the abdomen. No guarding. No masses. Peristalsis is significantly positive. EXTREMITIES: No clubbing, cyanosis, or edema. NEUROLOGIC: She is alert and oriented x4. There is no any motor or sensory deficits present. Cranial nerves are intact. LABORATORY DATA: Labs showed a white count of 6.1, hemoglobin 11.3, hematocrit 34.1, and platelet count 440. Sodium 138, potassium 4.4, chloride 107, CO2 of 22, BUN 16, creatinine 1.04. Glycemia is ranging from 162 to 183. Calcium 8.6. IMPRESSION: 1. Small-bowel obstruction, resolved. 2. Pancreatitis, resolved. 3. Acute encephalopathy, resolved. 4. Diabetes mellitus, type 2, relatively well controlled. 5. Diastolic heart failure. 6. Hypertension. 7. Coronary artery disease. 8. Aspiration pneumonitis. 9. Hypokalemia, resolved. 10. Acute renal failure, resolved. PLAN: Plan is to advance diet as per GI recommendation. If she tolerates the diet, she will be discharged home in the next day or so and her TPN will be stopped. We will continue PT and OT, and DVT prophylaxis with Lovenox. Job ID: [id number]
[2018-04-03] MEDS: HumaLOG 300 UNITS/3 ML VIAL SC PRN (11:45)
[2018-04-03] MEDS: Doxepin HCl 25 MG CAP PO SCH (20:17)
[2018-04-03] MEDS: D15W AA 5% IV SCH (22:46)
[2018-04-03] MEDS: MULTIVITAMINS IV SCH (22:46)
[2018-04-03] MEDS: [UNRECOGNIZED DRUG - OTHER] IV SCH (22:46)
[2018-04-03] MEDS: HUMULIN R IV SCH (22:46)
[2018-04-03] MEDS: MULTITRACE IV SCH (22:46)
--- NOTE | 2018-04-04 00:24 | PRG ---
DATE OF SERVICE: REASON FOR CONSULTATION: Acute pancreatitis and small bowel obstruction. SUBJECTIVE: The patient states that she was doing well today and had been able to tolerate a solid diet without difficulty; however, she does state that her abdominal pain is unchanged from yesterday, characterized as a sharp-type pain, located primarily within the right upper quadrant. She also endorses increased lower back pain, that has presented over the last 24 hours, but she has been maintaining more of a bed-bound status during this particular time. She adds that she has not had a bowel movement today with the institution of a more solid diet; however, she does state that her abdominal bloating is improved. OBJECTIVE: VITAL SIGNS: Temperature 98.4, pulse 94, blood pressure 110/79, respiratory rate 18, and saturating 96% on room air. GENERAL: The patient was sitting in bed, in no acute distress. Alert and oriented x4. CARDIOVASCULAR: Regular rate and rhythm. RESPIRATORY: Clear to auscultation bilaterally. ABDOMEN: Normoactive bowel sounds. Soft. Mild distention. Tenderness to palpation in all abdominal quadrants. EXTREMITIES: Trace bilateral lower extremity edema extending to mid palmer. LABORATORY DATA: CBC with a white blood cell count of 6.1, hemoglobin 11.3, hematocrit 34.1, and platelets 440. Chemistry with a sodium of 138, potassium 4.4, chloride 107, CO2 of 22, BUN 16, creatinine 1.04, and glucose 162. IMAGING DATA: No current GI imaging is available for review. ASSESSMENT AND PLAN: The patient is a 62-year-old female presenting with small-bowel obstruction, chronic constipation, acute pancreatitis and acute mental status change secondary to medication withdrawal. RECOMMENDATIONS: 1. We will continue to advance the patient's diet as tolerated with solid diet and continue to monitor for increased abdominal pain. 2. We would continue TPN for nutritional support at this time, but if she is able to tolerate a more solid diet effectively without increased abdominal pain, nausea or vomiting, we would discontinue the TPN as soon as tomorrow. 3. Agree with increased activity in terms of getting out of bed to chair and ambulation around the ta to facilitate passage of food. 4. We will continue to monitor the patient for possible signs of constipation. We will continue to follow. Please call with any questions. Job ID: [id number]
[2018-04-04] MEDS: Ondansetron PF 4 MG/2 ML Vial IVP PRN ×4 (04:50→18:35)
[2018-04-04] MEDS: Morphine 4 MG/ML VIAL SLOW IVP PRN ×5 (04:50→23:09)
[2018-04-04 06:31] LABS: #Eosinphils 0.2 thou/uL (0.0-0.7); #Lymphocytes 1.5 thou/uL (1.20-3.40); #Monocytes 0.5 thou/uL (0.11-0.59); #Neutrophils 2.8 thou/uL (1.40-6.50); %Basophils 0.6 % (0.0-1.0); %Eosinophils 3.5 % (0.0-10.0); %Lymphocytes 29.6 % (21.0-51.0); %Monocytes 9.8 % (0.0-10.0); %Neutrophils 56.6 % (42.0-75.0); Hemoglobin 11.7 g/dL (12.0-16.0); Mean Corpuscular HGB CONC 33.3 g/dL (32.0-36.0); Mean Corpuscular Hemoglobin 32.5 pg (27.0-31.0); Mean Corpuscular Volume 97.7 fL (78.0-98.0); Mean Platelet Volume 7.9 fL (7.4-10.4); Platelet Count 443 thou/uL (130-400); RBC Distribution Width 14.1 % (11.5-14.5); Red Blood Cell (RBC) Count 3.59 mill/uL (4.20-5.40)
[2018-04-04 06:52] LABS: Anion Gap 15 mmol/L (10-20); BUN (Urea Nitrogen) 18 mg/dL (9.8-20.1); Calc. Creatinine Clearance 76 mL/min (70-130); Carbon Dioxide 22 mmol/L (23-31); Chloride 104 mmol/L (98-107); Estimated GFR-MDRD 58; Glucose 181 mg/dL (80-115); Potassium 4.8 mmol/L (3.5-5.1); Sodium 136 mmol/L (136-145)
--- NOTE | 2018-04-04 08:56 | PRG ---
DATE OF SERVICE: 04/04/2018 SUBJECTIVE: The patient is seen and examined at bedside. She ate some solid food this morning and she developed the abdominal pain after that. No nausea. No vomiting. OBJECTIVE: VITAL SIGNS: Blood pressure is 110/79, pulse is 94, temperature 98.4, respiratory rate is 18, and O2 saturation is 96% on room air. HEENT: Head is atraumatic and normocephalic. Eyes are PERRLA. Sclerae nonicteric. Oral mucosa is moist. NECK: Supple. LUNGS: Clear. HEART: S1 and S2 normal. No S3. No S4. ABDOMEN: Soft, but tender to palpation in diffuse form. No guarding. No masses. Peristalsis present. EXTREMITIES: No clubbing, cyanosis, or edema. NEUROLOGIC: She is alert and oriented x4. There are no any motor or sensory deficits. Cranial nerves are intact. LABORATORY DATA: Labs showed white count of 5.0, hemoglobin of 11.7, hematocrit 35.0, platelet count is 443. Sodium of 136, potassium 4.8, chloride 104, CO2 of 22, BUN 18, creatinine 1.14, glycemia is ranging from 134 to 185, and calcium 9.0. IMPRESSION: 1. Small-bowel obstruction, resolved, but the pain came back after she had some solid food this morning. 2. Pancreatitis with recurrent abdominal pain with solid foods. 3. Acute encephalopathy, resolved. 4. Diabetes mellitus, type 2, relatively well controlled. 5. Diastolic heart failure. 6. Hypertension. 7. Coronary artery disease, chronic, stable. 8. Aspiration pneumonitis. 9. Hypokalemia, resolved. 10. Acute renal failure. PLAN: Plan is to make her n.p.o. again and if the pain goes away, we will keep her on clear liquids. We will continue her TPN. Continue PT and OT and DVT prophylaxis, and Accu-Cheks a.c. and at bedtime. Job ID: [id number]
[2018-04-04] MEDS: Polyethylene Glycol 3350 17 GM Packet PO SCH (09:03)
[2018-04-04] MEDS: Enoxaparin Sodium 40 MG/0.4 ML SYRINGE SC SCH (09:03)
[2018-04-04] MEDS: Carvedilol 25 MG TAB PO SCH ×2 (09:03→21:01)
[2018-04-04] MEDS: Losartan 25 MG TAB PO SCH (09:04)
[2018-04-04] MEDS: Aripiprazole 10 MG TAB PO SCH (09:05)
[2018-04-04] MEDS: cloNIDine 0.1 MG TAB PO SCH ×2 (09:05→21:01)
[2018-04-04] MEDS: hydrALAZINE 25 MG TAB PO SCH ×3 (09:06→21:02)
[2018-04-04] MEDS: NIFEdipine XL 60 MG TAB PO SCH (09:06)
[2018-04-04] MEDS: FLUoxetine HCl 20 MG CAP PO SCH (09:07)
[2018-04-04] MEDS: Lubiprostone 24 MCG CAP PO SCH ×2 (09:07→16:56)
[2018-04-04] MEDS: Potassium Chloride 20 MEQ TAB PO SCH ×2 (09:07→16:56)
[2018-04-04] MEDS: Gabapentin 300 MG CAP PO SCH ×2 (09:08→21:02)
[2018-04-04] MEDS: Sodium Chloride 0.9% 1,000 ML IV SCH ×2 (09:11→21:09)
[2018-04-04] MEDS: HumaLOG 300 UNITS/3 ML VIAL SC PRN ×3 (11:57→23:08)
[2018-04-04] MEDS: Doxepin HCl 25 MG CAP PO SCH (21:02)
[2018-04-04] MEDS: D15W AA 5% IV SCH (22:10)
[2018-04-04] MEDS: HUMULIN R IV SCH (22:10)
[2018-04-04] MEDS: MULTITRACE IV SCH (22:10)
[2018-04-04] MEDS: MULTIVITAMINS IV SCH (22:10)
[2018-04-04] MEDS: [UNRECOGNIZED DRUG - OTHER] IV SCH (22:10)
--- NOTE | 2018-04-04 22:46 | PRG ---
DATE OF SERVICE: 04/04/2018 SUBJECTIVE: The patient states that her abdominal pain is improved today. However, yesterday, she was able to eat a solid diet, but had increase in her abdominal pain and request to be changed back to a clear liquid diet. Upon changing back to a clear liquid diet, her abdominal pain has improved. Her appetite has improved somewhat, but she is still unable to completely eat everything on her tray. Currently, she denies any nausea, vomiting, fevers, chills, or GI bleeding. OBJECTIVE: VITAL SIGNS: Temperature 98.6, pulse 94, blood pressure 135/86, respiratory rate 16, saturating 94% on room air. GENERAL: The patient is lying in bed, in no acute distress. Alert and oriented x4. CARDIOVASCULAR: Regular rate and rhythm. RESPIRATORY: Clear to auscultation bilaterally. ABDOMEN: Normoactive bowel sounds. Soft, mild distention, tenderness to palpation in all abdominal quadrants. EXTREMITIES: Trace bilateral lower extremity edema extending to mid palmer. LABORATORY DATA: CBC with a white blood cell count of 5.0, hemoglobin 11.7, hematocrit 35, platelets 443. Chemistry with a sodium of 136, potassium 4.8, chloride 104, CO2 of 22, BUN 18, creatinine 1.14, glucose 181. IMAGING DATA: No current GI imaging is available for review. ASSESSMENT AND PLAN: The patient is a 62-year-old female, presenting with small-bowel obstruction, chronic constipation, acute pancreatitis, and acute mental status changes secondary to medication withdrawal. RECOMMENDATIONS: 1. Would continue patient on a liquid diet and advance slowly as tolerated, assessing the patient for increased abdominal pain that could be indicative of worsening pancreatitis. 2. Would continue TPN for nutritional support at this time. However, if she is able to tolerate a more solid diet effectively, then I would recommend discontinuing the TPN as soon as possible. 3. Agree with increased activity of the patient with getting out of bed and sitting in chair as well as ambulation around the ta. 4. We will continue to follow. Please call with any questions. Job ID: [id number]
[2018-04-05] MEDS: HumaLOG 300 UNITS/3 ML VIAL SC PRN ×2 (05:44→16:59)
[2018-04-05 07:01] LABS: #Eosinphils 0.2 thou/uL (0.0-0.7); #Lymphocytes 1.8 thou/uL (1.20-3.40); #Monocytes 0.5 thou/uL (0.11-0.59); #Neutrophils 2.4 thou/uL (1.40-6.50); %Basophils 0.8 % (0.0-1.0); %Eosinophils 3.4 % (0.0-10.0); %Lymphocytes 36.8 % (21.0-51.0); %Monocytes 10.9 % (0.0-10.0); %Neutrophils 48.1 % (42.0-75.0); Hemoglobin 10.8 g/dL (12.0-16.0); Mean Corpuscular HGB CONC 32.5 g/dL (32.0-36.0); Mean Corpuscular Hemoglobin 32.9 pg (27.0-31.0); Mean Platelet Volume 7.2 fL (7.4-10.4); Platelet Count 410 thou/uL (130-400); RBC Distribution Width 14.1 % (11.5-14.5); Red Blood Cell (RBC) Count 3.28 mill/uL (4.20-5.40)
[2018-04-05] MEDS: Sodium Chloride 0.9% 1,000 ML IV SCH (07:23)
[2018-04-05 07:39] LABS: Anion Gap 15 mmol/L (10-20); BUN (Urea Nitrogen) 22 mg/dL (9.8-20.1); Calc. Creatinine Clearance 72 mL/min (70-130); Calcium 8.6 mg/dL (7.8-10.44); Carbon Dioxide 20 mmol/L (23-31); Chloride 106 mmol/L (98-107); Estimated GFR-MDRD 55; Glucose 163 mg/dL (80-115); Sodium 136 mmol/L (136-145)
[2018-04-05] MEDS: Lubiprostone 24 MCG CAP PO SCH ×2 (08:51→16:58)
[2018-04-05] MEDS: cloNIDine 0.1 MG TAB PO SCH ×2 (08:52→20:41)
[2018-04-05] MEDS: Enoxaparin Sodium 40 MG/0.4 ML SYRINGE SC SCH (08:52)
[2018-04-05] MEDS: FLUoxetine HCl 20 MG CAP PO SCH (08:52)
[2018-04-05] MEDS: Losartan 25 MG TAB PO SCH (08:53)
[2018-04-05] MEDS: Carvedilol 25 MG TAB PO SCH ×2 (08:53→20:41)
[2018-04-05] MEDS: Aripiprazole 10 MG TAB PO SCH (08:54)
[2018-04-05] MEDS: hydrALAZINE 25 MG TAB PO SCH ×3 (08:55→20:41)
[2018-04-05] MEDS: Gabapentin 300 MG CAP PO SCH ×2 (08:55→20:41)
[2018-04-05] MEDS: Potassium Chloride 20 MEQ TAB PO SCH ×2 (08:55→16:58)
[2018-04-05] MEDS: NIFEdipine XL 60 MG TAB PO SCH (08:55)
[2018-04-05] MEDS: Morphine 4 MG/ML VIAL SLOW IVP PRN ×4 (09:03→22:16)
[2018-04-05] MEDS: Ondansetron PF 4 MG/2 ML Vial IVP PRN ×3 (09:03→22:16)
[2018-04-05] MEDS: Polyethylene Glycol 3350 17 GM Packet PO SCH (09:12)
--- NOTE | 2018-04-05 11:57 | PRG ---
DATE OF SERVICE: 04/05/2018 SUBJECTIVE: The patient is seen and examined at the bedside. She developed pain with advanced diet yesterday and she was switched back to clear liquids, and case management associate recommends to slow down with advancement of her diet. OBJECTIVE: VITAL SIGNS: Blood pressure is 128/85, pulse is 92, temperature is 98.3, respiratory rate is 18, and O2 saturation is 95% on room air. HEENT: Head is atraumatic and normocephalic. Sclerae nonicteric. Oral mucosa is moist. NECK: Supple. LUNGS: Clear. HEART: S1, S2 normal. No S3. No S4. ABDOMEN: Soft. Mildly tender in the right epigastric area. No guarding. No masses. EXTREMITIES: No clubbing, cyanosis, or edema. NEUROLOGIC: She is alert and oriented x4. There is no any motor or sensory deficit present. Cranial nerves are intact. LABORATORY DATA: Labs showed white count of 5.0, hemoglobin 10.8, hematocrit 33.2, and platelet count is 410. Sodium of 136, potassium 5.0, CO2 of 20, BUN 22, creatinine 1.2, glycemia is ranging from 152 to 169, and calcium 8.6. IMPRESSION: 1. Small bowel obstruction, resolved, but with recurrent pain after she was started on advanced diet. 2. Pancreatitis with recurrent abdominal pain as above. 3. Acute encephalopathy, resolved. 4. Diabetes mellitus type 2, relatively well controlled. 5. Diastolic heart failure. 6. Hypertension. 7. Coronary artery disease, chronic, stable. 8. Aspiration pneumonitis, resolved. 9. Hypokalemia, resolved. 10. Acute renal failure, improving. PLAN: Plan is to keep her on clear liquids and the case management associate will make decision when she can be advanced with her diet since she had one failure just a day ago. For now, we will continue her current regimen. We will continue her home DVT prophylaxis. We will continue her p.r.n. morphine, Procardia, carvedilol, and Abilify. She will ambulate. Job ID: [id number]
[2018-04-05] MEDS: Doxepin HCl 25 MG CAP PO SCH (20:40)
[2018-04-05] MEDS: [UNRECOGNIZED DRUG - OTHER] IV SCH (22:16)
[2018-04-05] MEDS: MULTITRACE IV SCH (22:16)
[2018-04-05] MEDS: HUMULIN R IV SCH (22:16)
[2018-04-05] MEDS: D15W AA 5% IV SCH (22:16)
[2018-04-05] MEDS: MULTIVITAMINS IV SCH (22:16)
--- NOTE | 2018-04-05 23:26 | PRG ---
DATE OF SERVICE: SUBJECTIVE: The patient states that her pain is roughly the same, if not may be minimally improved when compared to yesterday. She has been able to tolerate a more clear/liquid diet today without any particular difficulty. With the recent advancement in her diet to solid diet a couple of days ago, had increased abdominal pain. She has not experienced that with this particular diet. Her appetite continues to improve daily, but she is still unable to completely eat everything on her tray. Currently, she denies any nausea, vomiting, fevers, chills, or GI bleeding. OBJECTIVE: VITAL SIGNS: Temperature 98.3, pulse 93, blood pressure 128/81, respiratory rate 12, saturating 93% on room air. GENERAL: The patient was lying in bed, in no acute distress. Alert and oriented x4. CARDIOVASCULAR: Regular rate and rhythm. RESPIRATORY: Clear to auscultation bilaterally. ABDOMEN: Normoactive bowel sounds. Soft, nondistended. Tenderness to palpation in all abdominal quadrants. EXTREMITIES: Trace bilateral lower extremity edema extending the mid palmer. LABORATORY DATA: CBC with a white blood cell count of 5, hemoglobin 10.8, hematocrit 33.2, platelets 410. Chemistry with a sodium of 136, potassium 5, chloride 106, CO2 20, BUN 22, creatinine 1.2, glucose 163. IMAGING DATA: No current GI imaging is available for review. ASSESSMENT AND PLAN: The patient is a 62-year-old female, presenting with small-bowel obstruction, chronic constipation, acute pancreatitis, and acute mental status changes secondary to medication withdrawal. RECOMMENDATIONS: 1. We will continue patient on a liquid diet for the remainder of today, but consider advancing her diet tomorrow and assessing for worsening of her abdominal pain and/or increased nausea and vomiting that could be indicative of worsening pancreatitis. 2. As long as she is on a liquid diet and not consuming the majority of her tray, I would continue TPN for nutritional support at this time. However, if she is able to tolerate a more solid diet effectively, then I would recommend discontinuing TPN as soon as possible. 3. I agree with increased activity/ambulation. 4. Pain control per primary team. We will continue to follow. Please call with any questions. Job ID: [id number]
[2018-04-06] MEDS: Sodium Chloride 0.9% 1,000 ML IV SCH ×2 (00:48→09:51)
[2018-04-06] MEDS: HumaLOG 300 UNITS/3 ML VIAL SC PRN (05:30)
[2018-04-06 06:44] LABS: #Eosinphils 0.2 thou/uL (0.0-0.7); #Lymphocytes 1.7 thou/uL (1.20-3.40); #Monocytes 0.5 thou/uL (0.11-0.59); %Basophils 1.1 % (0.0-1.0); %Eosinophils 4.2 % (0.0-10.0); %Lymphocytes 38.2 % (21.0-51.0); %Monocytes 10.2 % (0.0-10.0); %Neutrophils 46.3 % (42.0-75.0); Hemoglobin 11.3 g/dL (12.0-16.0); Mean Corpuscular HGB CONC 32.9 g/dL (32.0-36.0); Mean Corpuscular Hemoglobin 32.9 pg (27.0-31.0); Mean Platelet Volume 7.2 fL (7.4-10.4); Platelet Count 410 thou/uL (130-400); RBC Distribution Width 14.1 % (11.5-14.5); Red Blood Cell (RBC) Count 3.45 mill/uL (4.20-5.40); White Blood Cell (WBC) Count 4.4 thou/uL (4.8-10.8)
[2018-04-06 06:57] LABS: Anion Gap 14 mmol/L (10-20); BUN (Urea Nitrogen) 22 mg/dL (9.8-20.1); Calc. Creatinine Clearance 69 mL/min (70-130); Calcium 8.8 mg/dL (7.8-10.44); Carbon Dioxide 21 mmol/L (23-31); Chloride 106 mmol/L (98-107); Estimated GFR-MDRD 52; Glucose 205 mg/dL (80-115); Potassium 5.1 mmol/L (3.5-5.1); Sodium 136 mmol/L (136-145)
[2018-04-06] MEDS: Polyethylene Glycol 3350 17 GM Packet PO SCH (08:19)
[2018-04-06] MEDS: Lubiprostone 24 MCG CAP PO SCH ×2 (08:19→16:31)
[2018-04-06] MEDS: Gabapentin 300 MG CAP PO SCH ×2 (08:20→20:33)
[2018-04-06] MEDS: FLUoxetine HCl 20 MG CAP PO SCH (08:20)
[2018-04-06] MEDS: NIFEdipine XL 60 MG TAB PO SCH (08:21)
[2018-04-06] MEDS: Carvedilol 25 MG TAB PO SCH ×2 (08:21→20:32)
[2018-04-06] MEDS: cloNIDine 0.1 MG TAB PO SCH ×2 (08:22→20:32)
[2018-04-06] MEDS: Losartan 25 MG TAB PO SCH (08:23)
[2018-04-06] MEDS: hydrALAZINE 25 MG TAB PO SCH ×3 (08:24→20:32)
[2018-04-06] MEDS: Aripiprazole 10 MG TAB PO SCH (08:24)
[2018-04-06] MEDS: Ondansetron PF 4 MG/2 ML Vial IVP PRN ×4 (08:27→20:30)
[2018-04-06] MEDS: Potassium Chloride 20 MEQ TAB PO SCH ×2 (08:27→16:32)
[2018-04-06] MEDS: Enoxaparin Sodium 40 MG/0.4 ML SYRINGE SC SCH (08:29)
[2018-04-06] MEDS: Morphine 4 MG/ML VIAL SLOW IVP PRN ×4 (08:34→20:29)
[2018-04-06] MEDS ORDERED: Iopamidol 370 76% 100 ML VIAL ONE (09:51)
--- NOTE | 2018-04-06 14:23 | CT ---
CT ABDOMEN AND PELVIS PERFORMED WITH AND WITHOUT CONTRAST ENHANCEMENT: HISTORY: Enterography, CT protocol. History of Crohn's disease. Ulcerative colitis. COMPARISON: Previous series of KUB films have been done recently, and a CT of the abdomen and pelvis, which was p erformed on 03/18/2018. FINDINGS: ABDOMEN: The lung bases are clear. The liver and spleen appear unremarkable. The gallbladder has been removed. The peripancreatic inflammatory changes are again demonstrated. In comparison to the prior examinati on, the changes in the peripancreatic head region appear improved. The enlargement of the pancreatic head is not as pronounced as what was seen on the previous examination. There are some slightly mor e peripancreatic inflammatory change around the body and tail region of the pancreas, as compared to the prior examination. The duodenitis type changes that were present on the prior examination are im proved. The right and left adrenal glands are normal in appearance. Renal cysts are again seen. No obstruct ion of either kidney. Tiny pericardial effusion is incidentally noted. No significant periaortic adenopathy. There is some mild distention to some of the more proximal sma ll bowel loops. This extends to the mid ilial level, with a transition point related to an anastomot ic suture line in the mid ileal region. The small bowel distal to this is more decompressed, as comp ared to the more proximal small bowel. PELVIS: The bladder is slightly distended. No adenopathy, mass, or free fluid. IMPRESSION: 1. Findings compatible with pancreatitis. Some of the inflammatory change around the pancreatic bod y and tail region is slightly more prominent than on the prior examination; however, there has been a definite reduction in the changes around the pancreatic head. The pancreatic head is not as enlarge d, and there is improved peripancreatic inflammatory change and improvement to the adjacent duodeniti s type change. 2. Very mild distention of the proximal small bowel to approximately the mid ileal level. There lovell s appear to be a mild transition point. This is related to an anastomotic suture line in the mid ile um. The ileum distal to this level is more decompressed. POS: RIKKI
--- NOTE | 2018-04-06 14:50 | PDOC.PN ---
- Subjective Encounter Start Date: 04/06/18 Encounter Start Time: 09:00 Pt seen for followup re: SBO. Says she feels better. Abdo pain is better. - Objective Resuscitation Status - Order Detail: 03/18/18 11:30 Resuscitation Status Routine Co-Sign Provider: Resuscitation Status: FULL: Full Resuscitation Discussed with: patient and MAR Reviewed: Yes Vital Signs & Weight: Vital Signs (12 hours) Temp Pulse Resp BP Pulse Ox 04/06/18 08:24 96 04/06/18 08:21 96 04/06/18 08:19 98.2 F 96 18 115/79 95 Weight Admit Weight 209 lb 2 oz Weight 209 lb 2 oz Most Recent Monitor Data Heart Rate from ECG 87 NIBP 135/75 NIBP BP-Mean 95 Respiration from ECG 18 SpO2 95 I&O: 04/05/18 04/06/18 04/07/18 06:59 06:59 06:59 Intake Total 1628 1371 Balance 1628 1371 Result Diagrams: 04/07/18 05:11 04/07/18 05:11 Additional Labs: Accuchecks 04/06/18 04/05/18 04/05/18 05:31 20:40 15:33 POC Glucose 221 H 160 H 241 H Labs reviewed by me Phys Exam - Physical Examination Constitutional: NAD HEENT: moist MMs Neck: supple Respiratory: clear to auscultation bilateral Cardiovascular: RRR Gastrointestinal: soft mild epigastric tenderness, no guarding or rigidity; bowel sounds sluggish Neurological: moves all 4 limbs Psychiatric: normal affect Dx/Plan (1) SBO (small bowel obstruction) Code(s): K56.609 - UNSP INTESTNL OBST, UNSP TO PARTIAL VERSUS COMPLETE OBST Status: Acute Comment: clinically improving (2) Pancreatitis Code(s): K85.90 - ACUTE PANCREATITIS WITHOUT NECROSIS OR INFECTION, UNSP Status: Resolved Qualifiers: Chronicity: acute Comment: Improving (3) MOOK (acute kidney injury) Code(s): N17.9 - ACUTE KIDNEY FAILURE, UNSPECIFIED Status: Acute Comment: Stabilizing - Plan * . Review of Systems - Review of Systems Cardiovascular: negative: chest pain, palpitations, orthopnea, paroxysmal nocturnal dyspnea, edema, light headedness Gastrointestinal: Nausea, Abdominal Pain. negative: Vomiting, Diarrhea, Constipation, Melena, Hematochezia - Medications/Allergies Allergies/Adverse Reactions: Allergies Allergy/AdvReac Type Severity Reaction Status Date / Time No Known Drug Allergies Allergy Verified 08/19/17 23:42 Medications: Current Medications Acetaminophen (Tylenol) 650 mg [place] Q4H PRN PRN Reason: Headache/Fever/Mild Pain (1-3) Alteplase, Recombinant (Cathflo) 2 mg CATH ASDIR [facility] Last Admin: 03/20/18 13:52 Dose: 2 mg Aripiprazole (Abilify) 10 mg PO DAILY [facility] Last Admin: 04/06/18 08:24 Dose: 10 mg Carvedilol (Coreg) 25 mg PO BID [facility] Last Admin: 04/06/18 08:21 Dose: 25 mg Clonidine (Catapres) 0.3 mg PO BID [facility] Last Admin: 04/06/18 08:22 Dose: 0.3 mg Dextrose/Water (Dextrose 50%) 25 gm SLOW IVP PRN PRN PRN Reason: Hypoglycemia Last Admin: 03/19/18 13:35 Dose: 12.5 gm Doxepin HCl (Sinequan) 100 mg PO HS [facility] Last Admin: 04/05/18 20:40 Dose: 100 mg Enoxaparin Sodium (Lovenox) 40 mg SC 0900 [facility] Last Admin: 04/06/18 08:29 Dose: 40 mg Fluoxetine HCl (Prozac) 40 mg PO DAILY [facility] Last Admin: 04/06/18 08:20 Dose: 40 mg Gabapentin (Neurontin) 300 mg PO BID [facility] Last Admin: 04/06/18 08:20 Dose: 300 mg Glucagon (Glucagon) 1 mg IM PRN PRN PRN Reason: Hypoglycemia Hydralazine HCl (Apresoline) 100 mg PO TID [facility] Last Admin: 04/06/18 08:24 Dose: 100 mg Hydralazine HCl (Apresoline) 10 mg SLOW IVP Q2H PRN PRN Reason: SBP > 180 and HR < 70 Last Admin: 03/30/18 14:08 Dose: 10 mg Dextrose/Water (D5w) 1,000 mls @ 0 mls/hr IV .Q0M PRN PRN Reason: Hypoglycemia Sodium Chloride (Normal Saline 0.9%) 1,000 mls @ 75 mls/hr IV .[id number] [facility] Last Admin: 04/06/18 09:51 Dose: Not Given Multivitamins 10 ml/ Chromium/Copper/Manganese/Seleni/Zn 5 ml/ Insulin Human Regular 44 units/ Amino Acids/Electrolytes/ Fat Emulsion Intravenous 2,265.44 mls @ 94.393 mls/hr IV 2200 [facility] Last Admin: 04/05/18 22:16 Dose: 2,265.44 mls Insulin Human Lispro (Humalog) 0 units SC .MILD SLIDING SCALE PRN PRN Reason: Mild Correctional Scale Last Admin: 04/06/18 05:30 Dose: 3 unit Labetalol HCl (Normodyne) 10 mg SLOW IVP Q4H PRN PRN Reason: SBP Greater Than 180 Last Admin: 03/30/18 12:37 Dose: 10 ml Losartan Potassium (Cozaar) 100 mg PO DAILY [facility] Last Admin: 04/06/18 08:23 Dose: 100 mg Lubiprostone (Amitiza) 24 mcg PO BID-[facility] Last Admin: 04/06/18 08:19 Dose: 24 mcg Morphine Sulfate (Morphine) 4 mg SLOW IVP Q4H PRN PRN Reason: Moderate to Severe Pain (6-10) Last Admin: 04/06/18 12:40 Dose: 4 mg Morphine Sulfate (Morphine) 2 mg SLOW IVP Q4H PRN PRN Reason: Mild-Moderate Pain (1-5) Last Admin: 03/30/18 20:17 Dose: 2 mg Nifedipine (Procardia Xl) 60 mg PO DAILY [facility] Last Admin: 04/06/18 08:21 Dose: 60 mg Ondansetron HCl (Zofran Odt) 4 mg PO Q6H PRN PRN Reason: Nausea/Vomiting Last Admin: 04/01/18 15:49 Dose: 4 mg Ondansetron HCl (Zofran) 4 mg IVP Q4H PRN PRN Reason: Nausea/Vomiting Last Admin: 04/06/18 12:39 Dose: 4 mg Pantoprazole Sodium (Protonix) 40 mg PO DAILY [facility] Last Admin: 04/06/18 08:22 Dose: 40 mg Polyethylene Glycol (Miralax) 17 gm PO DAILY [facility] Last Admin: 04/06/18 08:19 Dose: 17 gm Potassium Chloride (K-Dur) 40 meq PO BID-[facility] Last Admin: 04/06/18 08:27 Dose: 40 meq Quetiapine Fumarate (Seroquel) 400 mg PO [facility] Last Admin: 04/05/18 20:40 Dose: 400 mg Sodium Chloride (Flush - Normal Saline) 10 ml IVF Q12HR JOSSY Last Admin: 04/06/18 09:51 Dose: Not Given Sodium Chloride (Flush - Normal Saline) 10 ml IVF PRN PRN PRN Reason: Saline Flush Last Admin: 04/04/18 23:10 Dose: 10 ml
--- NOTE | 2018-04-06 18:56 | PRG ---
DATE OF SERVICE: 04/06/2018 SUBJECTIVE: The patient has more bloating, distention, and pain after her CT today. No nausea or vomiting. She continues to ambulate. Passing gas per rectum earlier today. She did not tolerate trial of diet advancement over the weekend. PHYSICAL EXAMINATION: VITAL SIGNS: Temperature is 98.2, blood pressure 128/83, pulse of 95. GENERAL: She is alert, no distress. HEENT: Exam shows anicteric sclerae. Oropharynx clear. CV: Exam shows normal S1, S2. Regular rate and rhythm. CHEST: Exam shows breath sounds clear to auscultation. ABDOMEN: Distended, generally tympanitic diffusely. No guarding or rebound. She has trickling bowel sounds. EXTREMITIES: Shows no edema. LABORATORY DATA: WBCs 4.4, hemoglobin 11.3, platelet count of 410. Electrolytes within normal range, creatinine 1.25. CT enterography showed improving peripancreatic inflammation. No abnormal fluid collection. There is mild distention of small bowel with transition zone in the ileum at the anastomotic site with decompressed small bowel. ASSESSMENT: 1. Small bowel obstruction, clinically better last week, but not resolved. The patient appears to have an incomplete small bowel obstruction with transition in the ileum where she had surgery two years ago. Degree of obstruction on CT is not as bad as last week, but she definitely has more distention now after the exam. 2. Acute pancreatitis of unknown etiology. Pancreas is viable. Degree of inflammation is generally less on CT. Lipase is normal. 3. Crohn disease, in remission. 4. Status post mental status change and psychosis from medication withdrawal, resolved. 5. Diabetes/hypertension/coronary artery disease, clinically stable. PLAN: 1. Will bowel rest today. 2. Abdominal x-ray in a.m. given degree of distention that the patient has now. 3. Continue TPN for nutritional support. Job ID: [id number]
[2018-04-06] MEDS: Doxepin HCl 25 MG CAP PO SCH (20:32)
[2018-04-06] MEDS: MULTIVITAMINS IV SCH (22:15)
[2018-04-06] MEDS: D15W AA 5% IV SCH (22:15)
[2018-04-06] MEDS: MULTITRACE IV SCH (22:15)
[2018-04-06] MEDS: [UNRECOGNIZED DRUG - OTHER] IV SCH (22:15)
[2018-04-06] MEDS: HUMULIN R IV SCH (22:15)
[2018-04-07] MEDS: Sodium Chloride 0.9% 1,000 ML IV SCH ×2 (02:16→16:30)
[2018-04-07] MEDS: HumaLOG 300 UNITS/3 ML VIAL SC PRN ×2 (05:23→18:12)
[2018-04-07 05:40] LABS: #Basophils 0.1 thou/uL (0.0-0.2); #Eosinphils 0.2 thou/uL (0.0-0.7); #Lymphocytes 1.4 thou/uL (1.20-3.40); #Monocytes 0.5 thou/uL (0.11-0.59); #Neutrophils 2.2 thou/uL (1.40-6.50); %Basophils 1.3 % (0.0-1.0); %Eosinophils 4.4 % (0.0-10.0); %Lymphocytes 32.4 % (21.0-51.0); %Monocytes 11.8 % (0.0-10.0); %Neutrophils 50.1 % (42.0-75.0); Mean Corpuscular Hemoglobin 33.1 pg (27.0-31.0); Mean Platelet Volume 7.5 fL (7.4-10.4); Platelet Count 359 thou/uL (130-400); RBC Distribution Width 14.2 % (11.5-14.5); Red Blood Cell (RBC) Count 3.34 mill/uL (4.20-5.40); White Blood Cell (WBC) Count 4.4 thou/uL (4.8-10.8)
[2018-04-07 05:46] LABS: INR-International Normal Ratio 1.1; Prothrombin Time 14.2 SEC (12.0-14.7)
[2018-04-07 05:47] LABS: PTT 46.1 SEC (22.9-36.1)
[2018-04-07 06:10] LABS: ALT (SGPT) 9 U/L (8-55); AST (SGOT) 13 U/L (5-34); Alkaline Phosphatase 152 U/L (40-150); Anion Gap 12 mmol/L (10-20); BUN (Urea Nitrogen) 22 mg/dL (9.8-20.1); Bilirubin, Total 0.2 mg/dL (0.2-1.2); Calc. Creatinine Clearance 59 mL/min (70-130); Calcium 8.9 mg/dL (7.8-10.44); Carbon Dioxide 22 mmol/L (23-31); Cardiac Risk 7.1 (Less than 4.5); Chloride 104 mmol/L (98-107); Cholesterol 142 mg/dl (< 200 Desired); Estimated GFR-MDRD 44; Globulin 3.7 g/dL (2.4-3.5); Glucose 240 mg/dL (80-115); HDL Cholesterol 20 mg/dL (>60 Neg Risk); LDL Cholesterol, Calculated 63 mg/dL; Magnesium 2.3 mg/dL (1.6-2.6); Phosphorus 4.4 mg/dL (2.3-4.7); Potassium 5.4 mmol/L (3.5-5.1); Protein, Total 6.7 g/dL (6.0-8.3); Sodium 133 mmol/L (136-145); Triglycerides 294 mg/dL (Less than 150)
[2018-04-07] MEDS: Morphine 4 MG/ML VIAL SLOW IVP PRN ×3 (06:26→19:37)
[2018-04-07] MEDS: Ondansetron PF 4 MG/2 ML Vial IVP PRN ×3 (06:26→19:38)
[2018-04-07] MEDS: FLUoxetine HCl 20 MG CAP PO SCH (09:31)
[2018-04-07] MEDS: cloNIDine 0.1 MG TAB PO SCH ×2 (09:31→19:42)
[2018-04-07] MEDS: Carvedilol 25 MG TAB PO SCH ×2 (09:32→19:42)
[2018-04-07] MEDS: Potassium Chloride 20 MEQ TAB PO SCH ×2 (09:32→18:09)
[2018-04-07] MEDS: Losartan 25 MG TAB PO SCH (09:33)
[2018-04-07] MEDS: Aripiprazole 10 MG TAB PO SCH (09:33)
[2018-04-07] MEDS: hydrALAZINE 25 MG TAB PO SCH ×3 (09:33→19:43)
[2018-04-07] MEDS: Gabapentin 300 MG CAP PO SCH ×2 (09:34→19:43)
[2018-04-07] MEDS: NIFEdipine XL 60 MG TAB PO SCH (09:34)
[2018-04-07] MEDS: Polyethylene Glycol 3350 17 GM Packet PO SCH (09:34)
[2018-04-07] MEDS: Lubiprostone 24 MCG CAP PO SCH ×2 (09:34→18:18)
[2018-04-07] MEDS: Enoxaparin Sodium 40 MG/0.4 ML SYRINGE SC SCH (09:35)
--- NOTE | 2018-04-07 10:03 | RAD ---
ABDOMINAL RADIOGRAPH KUB 2 VIEWS PROVIDED: Date: 04/07/18 INDICATION: History of small bowel obstruction, follow-up. FINDINGS: There is diffuse air-filled distention of the colon. No abnormal small bowel dilatation is seen. Air density is seen at the level of the rectum. There are phleboliths overlying the pelvis. IMPRESSION: Diffuse air-filled colon. No abnormal small bowel dilatation is evident. POS: TPC
[2018-04-07] MEDS: Bisacodyl 10 MG SUPP PR SCH ×2 (11:24→18:10)
--- NOTE | 2018-04-07 13:35 | PRG ---
DATE OF SERVICE: 04/07/2018 SUBJECTIVE: Ms. Mosqueda had more distention. Repeat CT scan showed questionable transition point in the terminal ileum with moderate to severe persistent inflammatory change around her pancreas. She does not have an NG tube in today. She said her distention is slightly improved. She had a bowel movement. She is passing gas. OBJECTIVE: VITAL SIGNS: She is afebrile. Vital signs are stable. ABDOMEN: Protuberant and distended, but no guarding, rebound. ASSESSMENT: Persistent moderate to severe pancreatitis associated with ileus versus a small bowel obstruction, on TPN. PLAN: Continue supportive care. I really think most of her bowel symptoms are related to the underlying pancreatitis. However, she may need to be explored at some point, if does not clinically improve. Job ID: [id number]
--- NOTE | 2018-04-07 14:52 | PRG ---
DATE OF SERVICE: 04/07/2018 SUBJECTIVE: The patient still feels bloated. Able to pass a small amount of liquid stool after a CT yesterday. Mild nausea but no vomiting. She is tolerating clear liquids otherwise. OBJECTIVE: VITAL SIGNS: Temperature 98.6, blood pressure 113/73, pulse of 88. GENERAL: She is alert, sitting up in big chair. No distress. HEENT: Shows anicteric sclerae. Oropharynx clear. NECK: Supple. CV: Shows normal S1 and S2. Regular rate and rhythm. CHEST: Shows breath sounds. ABDOMEN: Protuberant, mildly tympanitic. She does have bowel sounds. No tenderness. EXTREMITIES: Show no edema. LABORATORY DATA: None. KUB showed mostly air-filled colon, no distention of small bowel. ASSESSMENT: 1. Small-bowel obstruction, clinically not evident on this a.m. x-ray. She did have a transition point on CT enterography yesterday in the ileum but contrast was able to pass. 2. Acute pancreatitis of unknown etiology, resolving with less inflammatory changes on CT. 3. Crohn disease, in remission. 4. Status post mental status change and psychosis from medication withdrawal, resolved. 5. Diabetes/hypertension/coronary artery disease, clinically stable. PLAN: 1. We will advance to full liquids. 2. Dulcolax suppository now and repeat in 6 hours for colonic stimulation to evacuate air. 3. Continue with ambulation. Job ID: [id number]
--- NOTE | 2018-04-07 14:59 | PDOC.PN ---
- Subjective Encounter Start Date: 04/07/18 Encounter Start Time: 08:20 Pt seen for followup re: bowel obstruction. Says she has abdominal discomfort. Nausea+, no vomiting. - Objective Resuscitation Status - Order Detail: 03/18/18 11:30 Resuscitation Status Routine Co-Sign Provider: Resuscitation Status: FULL: Full Resuscitation Discussed with: patient and MAR Reviewed: Yes Vital Signs & Weight: Vital Signs (12 hours) Temp Pulse Resp BP BP BP Pulse Ox 04/07/18 11:00 98.6 F 88 19 125/83 92 L 04/07/18 09:34 88 113/73 04/07/18 09:33 88 04/07/18 09:31 126/82 04/07/18 07:41 92 L 04/07/18 07:27 98.6 F 88 19 113/73 92 L Weight Admit Weight 209 lb 2 oz Weight 209 lb 2 oz Most Recent Monitor Data Heart Rate from ECG 87 NIBP 135/75 NIBP BP-Mean 95 Respiration from ECG 18 SpO2 95 I&O: 04/06/18 04/07/18 04/08/18 06:59 06:59 06:59 Intake Total 1371 3367 Balance 1371 3367 Result Diagrams: 04/07/18 05:11 04/07/18 05:11 Additional Labs: Accuchecks 04/07/18 04/07/18 04/06/18 11:09 05:19 21:33 POC Glucose 139 H 228 H 158 H 04/06/18 16:44 POC Glucose 181 H Labs reviewed by me Phys Exam - Physical Examination Obese HEENT: moist MMs Neck: supple Respiratory: clear to auscultation bilateral Cardiovascular: RRR Gastrointestinal: soft distended, sluggish bowel sounds Neurological: moves all 4 limbs Psychiatric: normal affect Dx/Plan (1) SBO (small bowel obstruction) Code(s): K56.609 - UNSP INTESTNL OBST, UNSP TO PARTIAL VERSUS COMPLETE OBST Status: Acute Comment: conservative management (2) Pancreatitis Code(s): K85.90 - ACUTE PANCREATITIS WITHOUT NECROSIS OR INFECTION, UNSP Status: Resolved Qualifiers: Chronicity: acute Comment: Improving (3) Hyperkalemia Code(s): E87.5 - HYPERKALEMIA Status: Acute Comment: beta agonist nebs, recheck potassium level - Plan * . Review of Systems - Review of Systems Cardiovascular: negative: chest pain, palpitations, orthopnea, paroxysmal nocturnal dyspnea, edema, light headedness Gastrointestinal: Nausea, Abdominal Pain. negative: Vomiting, Diarrhea, Constipation, Melena, Hematochezia - Medications/Allergies Allergies/Adverse Reactions: Allergies Allergy/AdvReac Type Severity Reaction Status Date / Time No Known Drug Allergies Allergy Verified 08/19/17 23:42 Medications: Current Medications Acetaminophen (Tylenol) 650 mg DC Q4H PRN PRN Reason: Headache/Fever/Mild Pain (1-3) Alteplase, Recombinant (Cathflo) 2 mg CATH ASDIR [facility] Last Admin: 03/20/18 13:52 Dose: 2 mg Aripiprazole (Abilify) 10 mg PO DAILY [facility] Last Admin: 04/07/18 09:33 Dose: 10 mg Bisacodyl (Dulcolax) 10 mg DC Q6HR [facility] Stop: 04/07/18 18:01 Last Admin: 04/07/18 11:24 Dose: 10 mg Carvedilol (Coreg) 25 mg PO BID [facility] Last Admin: 04/07/18 09:32 Dose: 25 mg Clonidine (Catapres) 0.3 mg PO BID [facility] Last Admin: 04/07/18 09:31 Dose: Not Given Dextrose/Water (Dextrose 50%) 25 gm SLOW IVP PRN PRN PRN Reason: Hypoglycemia Last Admin: 03/19/18 13:35 Dose: 12.5 gm Doxepin HCl (Sinequan) 100 mg PO HS [facility] Last Admin: 04/06/18 20:32 Dose: 100 mg Enoxaparin Sodium (Lovenox) 40 mg SC 0900 [facility] Last Admin: 04/07/18 09:35 Dose: 40 mg Fluoxetine HCl (Prozac) 40 mg PO DAILY [facility] Last Admin: 04/07/18 09:31 Dose: 40 mg Gabapentin (Neurontin) 300 mg PO BID [facility] Last Admin: 04/07/18 09:34 Dose: 300 mg Glucagon (Glucagon) 1 mg IM PRN PRN PRN Reason: Hypoglycemia Hydralazine HCl (Apresoline) 100 mg PO TID [facility] Last Admin: 04/07/18 09:33 Dose: Not Given Hydralazine HCl (Apresoline) 10 mg SLOW IVP Q2H PRN PRN Reason: SBP > 180 and HR < 70 Last Admin: 03/30/18 14:08 Dose: 10 mg Dextrose/Water (D5w) 1,000 mls @ 0 mls/hr IV .Q0M PRN PRN Reason: Hypoglycemia Sodium Chloride (Normal Saline 0.9%) 1,000 mls @ 75 mls/hr IV .[id number] [facility] Last Admin: 04/07/18 02:16 Dose: Not Given Multivitamins 10 ml/ Chromium/Copper/Manganese/Seleni/Zn 5 ml/ Insulin Human Regular 44 units/ Amino Acids/Electrolytes/ Fat Emulsion Intravenous 2,265.44 mls @ 94.393 mls/hr IV 2200 [facility] Last Admin: 04/06/18 22:15 Dose: 2,265.44 mls Insulin Human Lispro (Humalog) 0 units SC .MILD SLIDING SCALE PRN PRN Reason: Mild Correctional Scale Last Admin: 04/07/18 05:23 Dose: 3 unit Labetalol HCl (Normodyne) 10 mg SLOW IVP Q4H PRN PRN Reason: SBP Greater Than 180 Last Admin: 03/30/18 12:37 Dose: 10 ml Losartan Potassium (Cozaar) 100 mg PO DAILY [facility] Last Admin: 04/07/18 09:33 Dose: 100 mg Lubiprostone (Amitiza) 24 mcg PO BID-[facility] Last Admin: 04/07/18 09:34 Dose: 24 mcg Morphine Sulfate (Morphine) 4 mg SLOW IVP Q4H PRN PRN Reason: Moderate to Severe Pain (6-10) Last Admin: 04/07/18 11:17 Dose: 4 mg Morphine Sulfate (Morphine) 2 mg SLOW IVP Q4H PRN PRN Reason: Mild-Moderate Pain (1-5) Last Admin: 04/07/18 06:26 Dose: 2 mg Nifedipine (Procardia Xl) 60 mg PO DAILY [facility] Last Admin: 04/07/18 09:34 Dose: 60 mg Ondansetron HCl (Zofran Odt) 4 mg PO Q6H PRN PRN Reason: Nausea/Vomiting Last Admin: 04/01/18 15:49 Dose: 4 mg Ondansetron HCl (Zofran) 4 mg IVP Q4H PRN PRN Reason: Nausea/Vomiting Last Admin: 04/07/18 11:16 Dose: 4 mg Pantoprazole Sodium (Protonix) 40 mg PO DAILY [facility] Last Admin: 04/07/18 09:34 Dose: 40 mg Polyethylene Glycol (Miralax) 17 gm PO DAILY [facility] Last Admin: 04/07/18 09:34 Dose: 17 gm Potassium Chloride (K-Dur) 40 meq PO BID-[facility] Last Admin: 04/07/18 09:32 Dose: 40 meq Quetiapine Fumarate (Seroquel) 400 mg PO HS [facility] Last Admin: 04/06/18 20:33 Dose: 400 mg Sodium Chloride (Flush - Normal Saline) 10 ml IVF Q12HR [facility] Last Admin: 04/07/18 09:35 Dose: 10 ml Sodium Chloride (Flush - Normal Saline) 10 ml IVF PRN PRN PRN Reason: Saline Flush Last Admin: 04/04/18 23:10 Dose: 10 ml
--- NOTE | 2018-04-07 15:06 | PDOC.PN ---
- Subjective Encounter Start Date: 04/07/18 Encounter Start Time: 08:20 Pt seen for followup re: SBO. Nausea+, abdo discomfort+. No vomiting. - Objective Resuscitation Status - Order Detail: 03/18/18 11:30 Resuscitation Status Routine Co-Sign Provider: Resuscitation Status: FULL: Full Resuscitation Discussed with: patient and MAR Reviewed: Yes Vital Signs & Weight: Vital Signs (12 hours) Temp Pulse Resp BP BP BP Pulse Ox 04/07/18 11:00 98.6 F 88 19 125/83 92 L 04/07/18 09:34 88 113/73 04/07/18 09:33 88 04/07/18 09:31 126/82 04/07/18 07:41 92 L 04/07/18 07:27 98.6 F 88 19 113/73 92 L Weight Admit Weight 209 lb 2 oz Weight 209 lb 2 oz Most Recent Monitor Data Heart Rate from ECG 87 NIBP 135/75 NIBP BP-Mean 95 Respiration from ECG 18 SpO2 95 I&O: 04/06/18 04/07/18 04/08/18 06:59 06:59 06:59 Intake Total 1371 3367 Balance 1371 3367 Result Diagrams: 04/07/18 05:11 04/07/18 05:11 Additional Labs: Accuchecks 04/07/18 04/07/18 04/06/18 11:09 05:19 21:33 POC Glucose 139 H 228 H 158 H 04/06/18 16:44 POC Glucose 181 H Labs reviewed by me Phys Exam - Physical Examination Obese HEENT: moist MMs Neck: supple Respiratory: clear to auscultation bilateral Cardiovascular: RRR Gastrointestinal: soft distended, sluggish bowel sounds Neurological: moves all 4 limbs Psychiatric: normal affect Dx/Plan (1) SBO (small bowel obstruction) Code(s): K56.609 - UNSP INTESTNL OBST, UNSP TO PARTIAL VERSUS COMPLETE OBST Status: Acute Comment: conservative management (2) Pancreatitis Code(s): K85.90 - ACUTE PANCREATITIS WITHOUT NECROSIS OR INFECTION, UNSP Status: Resolved Qualifiers: Chronicity: acute Comment: Improving (3) MOOK (acute kidney injury) Code(s): N17.9 - ACUTE KIDNEY FAILURE, UNSPECIFIED Status: Acute Comment: creatinine worse today (4) Hyperkalemia Code(s): E87.5 - HYPERKALEMIA Status: Acute Comment: administer beta agonist nebs, recheck - Plan * . Review of Systems - Review of Systems Cardiovascular: negative: chest pain, palpitations, orthopnea, paroxysmal nocturnal dyspnea, edema, light headedness Gastrointestinal: Nausea, Abdominal Pain. negative: Vomiting, Diarrhea, Constipation, Melena, Hematochezia - Medications/Allergies Allergies/Adverse Reactions: Allergies Allergy/AdvReac Type Severity Reaction Status Date / Time No Known Drug Allergies Allergy Verified 08/19/17 23:42 Medications: Current Medications Acetaminophen (Tylenol) 650 mg DC Q4H PRN PRN Reason: Headache/Fever/Mild Pain (1-3) Alteplase, Recombinant (Cathflo) 2 mg CATH ASDIR [facility] Last Admin: 03/20/18 13:52 Dose: 2 mg Aripiprazole (Abilify) 10 mg PO DAILY [facility] Last Admin: 04/07/18 09:33 Dose: 10 mg Bisacodyl (Dulcolax) 10 mg DC Q6HR [facility] Stop: 04/07/18 18:01 Last Admin: 04/07/18 11:24 Dose: 10 mg Carvedilol (Coreg) 25 mg PO BID [facility] Last Admin: 04/07/18 09:32 Dose: 25 mg Clonidine (Catapres) 0.3 mg PO BID [facility] Last Admin: 04/07/18 09:31 Dose: Not Given Dextrose/Water (Dextrose 50%) 25 gm SLOW IVP PRN PRN PRN Reason: Hypoglycemia Last Admin: 03/19/18 13:35 Dose: 12.5 gm Doxepin HCl (Sinequan) 100 mg PO HS [facility] Last Admin: 04/06/18 20:32 Dose: 100 mg Enoxaparin Sodium (Lovenox) 40 mg SC 0900 [facility] Last Admin: 04/07/18 09:35 Dose: 40 mg Fluoxetine HCl (Prozac) 40 mg PO DAILY [facility] Last Admin: 04/07/18 09:31 Dose: 40 mg Gabapentin (Neurontin) 300 mg PO BID [facility] Last Admin: 04/07/18 09:34 Dose: 300 mg Glucagon (Glucagon) 1 mg IM PRN PRN PRN Reason: Hypoglycemia Hydralazine HCl (Apresoline) 100 mg PO TID [facility] Last Admin: 04/07/18 09:33 Dose: Not Given Hydralazine HCl (Apresoline) 10 mg SLOW IVP Q2H PRN PRN Reason: SBP > 180 and HR < 70 Last Admin: 03/30/18 14:08 Dose: 10 mg Dextrose/Water (D5w) 1,000 mls @ 0 mls/hr IV .Q0M PRN PRN Reason: Hypoglycemia Sodium Chloride (Normal Saline 0.9%) 1,000 mls @ 75 mls/hr IV .[id number] [facility] Last Admin: 04/07/18 02:16 Dose: Not Given Multivitamins 10 ml/ Chromium/Copper/Manganese/Seleni/Zn 5 ml/ Insulin Human Regular 44 units/ Amino Acids/Electrolytes/ Fat Emulsion Intravenous 2,265.44 mls @ 94.393 mls/hr IV 2200 [facility] Last Admin: 04/06/18 22:15 Dose: 2,265.44 mls Insulin Human Lispro (Humalog) 0 units SC .MILD SLIDING SCALE PRN PRN Reason: Mild Correctional Scale Last Admin: 04/07/18 05:23 Dose: 3 unit Labetalol HCl (Normodyne) 10 mg SLOW IVP Q4H PRN PRN Reason: SBP Greater Than 180 Last Admin: 03/30/18 12:37 Dose: 10 ml Losartan Potassium (Cozaar) 100 mg PO DAILY [facility] Last Admin: 04/07/18 09:33 Dose: 100 mg Lubiprostone (Amitiza) 24 mcg PO BID-[facility] Last Admin: 04/07/18 09:34 Dose: 24 mcg Morphine Sulfate (Morphine) 4 mg SLOW IVP Q4H PRN PRN Reason: Moderate to Severe Pain (6-10) Last Admin: 04/07/18 11:17 Dose: 4 mg Morphine Sulfate (Morphine) 2 mg SLOW IVP Q4H PRN PRN Reason: Mild-Moderate Pain (1-5) Last Admin: 04/07/18 06:26 Dose: 2 mg Nifedipine (Procardia Xl) 60 mg PO DAILY [facility] Last Admin: 04/07/18 09:34 Dose: 60 mg Ondansetron HCl (Zofran Odt) 4 mg PO Q6H PRN PRN Reason: Nausea/Vomiting Last Admin: 04/01/18 15:49 Dose: 4 mg Ondansetron HCl (Zofran) 4 mg IVP Q4H PRN PRN Reason: Nausea/Vomiting Last Admin: 04/07/18 11:16 Dose: 4 mg Pantoprazole Sodium (Protonix) 40 mg PO DAILY [facility] Last Admin: 04/07/18 09:34 Dose: 40 mg Polyethylene Glycol (Miralax) 17 gm PO DAILY [facility] Last Admin: 04/07/18 09:34 Dose: 17 gm Potassium Chloride (K-Dur) 40 meq PO BID-[facility] Last Admin: 04/07/18 09:32 Dose: 40 meq Quetiapine Fumarate (Seroquel) 400 mg PO HS [facility] Last Admin: 04/06/18 20:33 Dose: 400 mg Sodium Chloride (Flush - Normal Saline) 10 ml IVF Q12HR [facility] Last Admin: 04/07/18 09:35 Dose: 10 ml Sodium Chloride (Flush - Normal Saline) 10 ml IVF PRN PRN PRN Reason: Saline Flush Last Admin: 04/04/18 23:10 Dose: 10 ml
[2018-04-07] MEDS ORDERED: Albuterol Sulfate 1.25 MG/3 ML NEB NEB SCH (15:45)
[2018-04-07] MEDS ORDERED: Albuterol Sulfate 2.5 mg/3 ml Neb NEB SCH (17:45)
[2018-04-07] MEDS: Doxepin HCl 25 MG CAP PO SCH (19:43)
[2018-04-07] MEDS: Sterile Water 10 ML VIAL FS SCH ×2 (20:15→20:30)
[2018-04-07] MEDS: Activase 2 MG VIAL CATH SCH ×2 (20:15→20:30)
[2018-04-07] MEDS: D15W AA 5% IV SCH (22:32)
[2018-04-07] MEDS: MULTIVITAMINS IV SCH (22:32)
[2018-04-07] MEDS: [UNRECOGNIZED DRUG - OTHER] IV SCH (22:32)
[2018-04-07] MEDS: HUMULIN R IV SCH (22:32)
[2018-04-07] MEDS: MULTITRACE IV SCH (22:32)
[2018-04-08] MEDS: Sodium Chloride 0.9% 1,000 ML IV SCH ×2 (00:35→19:15)
[2018-04-08] MEDS: Ondansetron PF 4 MG/2 ML Vial IVP PRN ×3 (04:36→19:16)
[2018-04-08] MEDS: Morphine 4 MG/ML VIAL SLOW IVP PRN ×4 (04:36→19:16)
[2018-04-08] MEDS: HumaLOG 300 UNITS/3 ML VIAL SC PRN ×3 (04:37→17:27)
[2018-04-08 08:13] LABS: #Basophils 0.1 thou/uL (0.0-0.2); #Eosinphils 0.2 thou/uL (0.0-0.7); #Lymphocytes 1.5 thou/uL (1.20-3.40); #Monocytes 0.5 thou/uL (0.11-0.59); #Neutrophils 1.7 thou/uL (1.40-6.50); %Basophils 1.5 % (0.0-1.0); %Eosinophils 4.1 % (0.0-10.0); %Neutrophils 43.3 % (42.0-75.0); Hemoglobin 11.2 g/dL (12.0-16.0); Mean Corpuscular HGB CONC 32.5 g/dL (32.0-36.0); Mean Corpuscular Hemoglobin 32.5 pg (27.0-31.0); Mean Corpuscular Volume 99.9 fL (78.0-98.0); Mean Platelet Volume 7.4 fL (7.4-10.4); Platelet Count 368 thou/uL (130-400); RBC Distribution Width 14.2 % (11.5-14.5); Red Blood Cell (RBC) Count 3.44 mill/uL (4.20-5.40); White Blood Cell (WBC) Count 3.8 thou/uL (4.8-10.8)
[2018-04-08 08:36] LABS: Anion Gap 13 mmol/L (10-20); BUN (Urea Nitrogen) 20 mg/dL (9.8-20.1); Calc. Creatinine Clearance 62 mL/min (70-130); Calcium 8.9 mg/dL (7.8-10.44); Carbon Dioxide 19 mmol/L (23-31); Chloride 107 mmol/L (98-107); Estimated GFR-MDRD 46; Glucose 190 mg/dL (80-115); Potassium 5.3 mmol/L (3.5-5.1); Sodium 134 mmol/L (136-145)
[2018-04-08] MEDS: hydrALAZINE 25 MG TAB PO SCH ×3 (10:06→20:48)
[2018-04-08] MEDS: Carvedilol 25 MG TAB PO SCH ×2 (10:06→20:48)
[2018-04-08] MEDS: Losartan 25 MG TAB PO SCH (10:07)
[2018-04-08] MEDS: cloNIDine 0.1 MG TAB PO SCH ×2 (10:08→20:49)
[2018-04-08] MEDS: Gabapentin 300 MG CAP PO SCH ×2 (10:08→20:48)
[2018-04-08] MEDS: Lubiprostone 24 MCG CAP PO SCH ×2 (10:08→17:27)
[2018-04-08] MEDS: Potassium Chloride 20 MEQ TAB PO SCH (10:08)
[2018-04-08] MEDS: FLUoxetine HCl 20 MG CAP PO SCH (10:09)
[2018-04-08] MEDS: Aripiprazole 10 MG TAB PO SCH (10:09)
[2018-04-08] MEDS: NIFEdipine XL 60 MG TAB PO SCH (10:09)
[2018-04-08] MEDS: Enoxaparin Sodium 40 MG/0.4 ML SYRINGE SC SCH (10:10)
[2018-04-08] MEDS: Polyethylene Glycol 3350 17 GM Packet PO SCH (10:11)
--- NOTE | 2018-04-08 12:48 | PRG ---
DATE OF SERVICE: 04/08/2018 SUBJECTIVE: The patient still has quite a bit of abdominal pain, requiring morphine every 4 to 6 hours. She reports having more pain, bloating, and distention after eating, still in full liquids. She did pass a lot of gas per rectum and 2 soft small bowel movement with 2 dulcolax suppository yesterday. PHYSICAL EXAMINATION: VITAL SIGNS: Temperature is 98.1, blood pressure 109/56, pulse of 97. GENERAL: She is alert, uncomfortable appearing, but in no distress. HEENT: Shows anicteric sclerae. NECK: Supple. CV: Shows normal S1, S2. Regular rate and rhythm. CHEST: Shows a breath sounds clear to auscultation. ABDOMEN: Shows very protuberant abdomen and distended, but not very tympanitic. Bowel sounds is very hypoactive. There is diffuse tenderness, but no guarding or rebound. EXTREMITIES: Shows no edema. LABORATORY DATA: Electrolytes within normal range. Creatinine 1.39. WBCs 3.8, hemoglobin 11.2, and platelet count of 368. ASSESSMENT: 1. Persistent abdominal pain, more so than her baseline of chronic pain, from combination of pancreatitis and possible partial small-bowel obstruction. 2. Acute pancreatitis of unknown etiology, still with inflammatory changes on CT, but appears to be improving. 3. Partial small-bowel obstruction with transition of dilated to normal caliber small bowel on small bowel series and CT enterography. Contrast does appear to pass. The patient does have history of adhesiolysis for small bowel obstruction 2 years ago. 4. Crohn disease, in remission. 5. Status post mental status change and psychosis from medication withdrawal, resolved. 6. Diabetes/hypertension/coronary artery disease, stable. PLAN: 1. We will repeat a KUB this afternoon. 2. Continue TPN for nutritional support. We will keep on full liquids for now, may change after KUB findings. 3. Continue with frequent ambulation. Job ID: [id number]
--- NOTE | 2018-04-08 13:17 | RAD ---
KUB: History: Abdominal pain, small bowel obstruction. Comparison: Prior day's exam. FINDINGS: Bowel gas pattern appears nonobstructed. Residual contrast is still present within the colon, similar to the previous examination. Surgical clips are seen within the right upper and lower quadrants and right side of the pelvis. IMPRESSION: Stable exam. POS: DEVON
[2018-04-08] MEDS ORDERED: TPN ELECTROLYTES IVPB PRN (17:58)
--- NOTE | 2018-04-08 19:10 | PDOC.PN ---
- Subjective Encounter Start Date: 04/08/18 Encounter Start Time: 08:40 Pt seen for followup re: SBO. Passing flatus, had two small BMs. - Objective Resuscitation Status - Order Detail: 03/18/18 11:30 Resuscitation Status Routine Co-Sign Provider: Resuscitation Status: FULL: Full Resuscitation Discussed with: patient and Vital Signs & Weight: Vital Signs (12 hours) Temp Pulse Resp BP BP Pulse Ox 04/08/18 15:49 98.5 F 97 17 142/87 H 96 04/08/18 14:25 97 137/96 H 04/08/18 11:28 98.1 F 97 16 109/56 L 96 04/08/18 10:09 107 H 04/08/18 10:08 132/80 04/08/18 10:06 107 H 04/08/18 09:00 98 04/08/18 08:34 98.1 F 107 H 16 107/75 98 Weight Admit Weight 209 lb 2 oz Weight 209 lb 2 oz Most Recent Monitor Data Heart Rate from ECG 87 NIBP 135/75 NIBP BP-Mean 95 Respiration from ECG 18 SpO2 95 I&O: 04/07/18 04/08/18 04/09/18 06:59 06:59 06:59 Intake Total 3367 2911 Balance 3367 2911 Result Diagrams: 04/08/18 07:58 04/08/18 07:58 Additional Labs: Accuchecks 04/08/18 04/08/18 04/08/18 15:48 11:28 04:14 POC Glucose 188 H 178 H 212 H 04/07/18 19:57 POC Glucose 196 H Phys Exam - Physical Examination Obese HEENT: moist MMs Neck: supple Respiratory: clear to auscultation bilateral Cardiovascular: RRR Gastrointestinal: soft Neurological: moves all 4 limbs Psychiatric: normal affect Dx/Plan (1) SBO (small bowel obstruction) Code(s): K56.609 - UNSP INTESTNL OBST, UNSP TO PARTIAL VERSUS COMPLETE OBST Status: Acute Comment: improving with conservative management (2) Pancreatitis Code(s): K85.90 - ACUTE PANCREATITIS WITHOUT NECROSIS OR INFECTION, UNSP Status: Acute Qualifiers: Chronicity: acute Comment: Improving (3) MOOK (acute kidney injury) Code(s): N17.9 - ACUTE KIDNEY FAILURE, UNSPECIFIED Status: Acute Comment: creatinine improved to 1.39 today (4) Hyperkalemia Code(s): E87.5 - HYPERKALEMIA Status: Acute Comment: discontinue potassium supplements - Plan * . Review of Systems - Review of Systems Cardiovascular: negative: chest pain, palpitations, orthopnea, paroxysmal nocturnal dyspnea, edema, light headedness Gastrointestinal: Abdominal Pain. negative: Nausea, Vomiting, Diarrhea, Constipation, Melena, Hematochezia - Medications/Allergies Allergies/Adverse Reactions: Allergies Allergy/AdvReac Type Severity Reaction Status Date / Time No Known Drug Allergies Allergy Verified 08/19/17 23:42 Medications: Current Medications Acetaminophen (Tylenol) 650 mg [place] Q4H PRN PRN Reason: Headache/Fever/Mild Pain (1-3) Alteplase, Recombinant (Cathflo) 2 mg CATH ASDIR [facility] Last Admin: 04/07/18 20:30 Dose: 2 mg Aripiprazole (Abilify) 10 mg PO DAILY [facility] Last Admin: 04/08/18 10:09 Dose: 10 mg Carvedilol (Coreg) 25 mg PO BID [facility] Last Admin: 04/08/18 10:06 Dose: 25 mg Clonidine (Catapres) 0.3 mg PO BID [facility] Last Admin: 04/08/18 10:08 Dose: Not Given Dextrose/Water (Dextrose 50%) 25 gm SLOW IVP PRN PRN PRN Reason: Hypoglycemia Last Admin: 03/19/18 13:35 Dose: 12.5 gm Doxepin HCl (Sinequan) 100 mg PO HS [facility] Last Admin: 04/07/18 19:43 Dose: 100 mg Enoxaparin Sodium (Lovenox) 40 mg SC 0900 [facility] Last Admin: 04/08/18 10:10 Dose: 40 mg Fluoxetine HCl (Prozac) 40 mg PO DAILY [facility] Last Admin: 04/08/18 10:09 Dose: 40 mg Gabapentin (Neurontin) 300 mg PO BID [facility] Last Admin: 04/08/18 10:08 Dose: 300 mg Glucagon (Glucagon) 1 mg IM PRN PRN PRN Reason: Hypoglycemia Hydralazine HCl (Apresoline) 100 mg PO TID [facility] Last Admin: 04/08/18 14:25 Dose: 100 mg Hydralazine HCl (Apresoline) 10 mg SLOW IVP Q2H PRN PRN Reason: SBP > 180 and HR < 70 Last Admin: 03/30/18 14:08 Dose: 10 mg Dextrose/Water (D5w) 1,000 mls @ 0 mls/hr IV .Q0M PRN PRN Reason: Hypoglycemia Sodium Chloride (Normal Saline 0.9%) 1,000 mls @ 75 mls/hr IV .[id number] [facility] Last Admin: 04/08/18 00:35 Dose: Not Given Multivitamins 10 ml/ Chromium/Copper/Manganese/Seleni/Zn 5 ml/ Insulin Human Regular 44 units/ Amino Acids/Electrolytes/ Fat Emulsion Intravenous 2,265.44 mls @ 94.393 mls/hr IV 2200 [facility] Stop: 04/08/18 21:59 Last Admin: 04/07/18 22:32 Dose: 2,265.44 mls Sodium Acetate 40 meq/ Sodium Chloride 30 meq/ Sodium Phosphate 30 mmol/ Calcium Gluconate 10 meq/ Magnesium Sulfate 10 meq/ Multivitamins 10 ml/ Chromium/Copper/Manganese/Seleni/Zn 5 ml/ Fat Emulsion Intravenous 200 ml/ Dextrose/Water/ Sterile Water/Amino Acids 1,776.7021 mls @ 74.029 mls/hr IV 2200 [facility] Insulin Human Lispro (Humalog) 0 units SC .MILD SLIDING SCALE PRN PRN Reason: Mild Correctional Scale Last Admin: 04/08/18 17:27 Dose: 2 unit Labetalol HCl (Normodyne) 10 mg SLOW IVP Q4H PRN PRN Reason: SBP Greater Than 180 Last Admin: 03/30/18 12:37 Dose: 10 ml Losartan Potassium (Cozaar) 100 mg PO DAILY [facility] Last Admin: 04/08/18 10:07 Dose: Not Given Lubiprostone (Amitiza) 24 mcg PO BID-[facility] Last Admin: 04/08/18 17:27 Dose: 24 mcg Miscellaneous Medication (Pharmacy To Dose) 1 each IVPB PRN PRN PRN Reason: Pharmacy to dose Morphine Sulfate (Morphine) 4 mg SLOW IVP Q4H PRN PRN Reason: Moderate to Severe Pain (6-10) Last Admin: 04/08/18 14:24 Dose: 4 mg Morphine Sulfate (Morphine) 2 mg SLOW IVP Q4H PRN PRN Reason: Mild-Moderate Pain (1-5) Last Admin: 04/07/18 06:26 Dose: 2 mg Nifedipine (Procardia Xl) 60 mg PO DAILY [facility] Last Admin: 04/08/18 10:09 Dose: Not Given Ondansetron HCl (Zofran Odt) 4 mg PO Q6H PRN PRN Reason: Nausea/Vomiting Last Admin: 04/01/18 15:49 Dose: 4 mg Ondansetron HCl (Zofran) 4 mg IVP Q4H PRN PRN Reason: Nausea/Vomiting Last Admin: 04/08/18 12:18 Dose: 4 mg Pantoprazole Sodium (Protonix) 40 mg PO DAILY [facility] Last Admin: 04/08/18 10:11 Dose: 40 mg Polyethylene Glycol (Miralax) 17 gm PO DAILY [facility] Last Admin: 04/08/18 10:11 Dose: Not Given Quetiapine Fumarate (Seroquel) 400 mg PO HS [facility] Last Admin: 04/07/18 19:42 Dose: 400 mg Sodium Chloride (Flush - Normal Saline) 10 ml IVF Q12HR [facility] Last Admin: 04/08/18 10:11 Dose: 10 ml Sodium Chloride (Flush - Normal Saline) 10 ml IVF PRN PRN PRN Reason: Saline Flush Last Admin: 04/04/18 23:10 Dose: 10 ml
[2018-04-08] MEDS: Doxepin HCl 25 MG CAP PO SCH (20:48)
[2018-04-08] MEDS ORDERED: cloNIDine 0.1 MG TAB PO PRN (22:21)
[2018-04-08] MEDS ORDERED: cloNIDine 0.1 MG TAB PO SCH (22:30)
[2018-04-08] MEDS: SODIUM PHOSPHATE IV SCH (23:03)
[2018-04-08] MEDS: [UNRECOGNIZED DRUG - OTHER] IV SCH (23:03)
[2018-04-08] MEDS: SODIUM CHLORIDE IV SCH (23:03)
[2018-04-08] MEDS: SODIUM ACETATE IV SCH (23:03)
[2018-04-09] MEDS: HumaLOG 300 UNITS/3 ML VIAL SC PRN ×3 (06:37→17:04)
[2018-04-09 07:03] LABS: Anion Gap 12 mmol/L (10-20); BUN (Urea Nitrogen) 19 mg/dL (9.8-20.1); Calc. Creatinine Clearance 60 mL/min (70-130); Calcium 8.9 mg/dL (7.8-10.44); Carbon Dioxide 24 mmol/L (23-31); Chloride 105 mmol/L (98-107); Estimated GFR-MDRD 45; Glucose 208 mg/dL (80-115); Potassium 4.9 mmol/L (3.5-5.1); Sodium 136 mmol/L (136-145)
[2018-04-09 07:04] LABS: Hemoglobin 11.1 g/dL (12.0-16.0); Mean Corpuscular HGB CONC 33.5 g/dL (32.0-36.0); Mean Corpuscular Hemoglobin 33.1 pg (27.0-31.0); Mean Corpuscular Volume 98.8 fL (78.0-98.0); Platelet Count 334 thou/uL (130-400); RBC Distribution Width 14.1 % (11.5-14.5); Red Blood Cell (RBC) Count 3.34 mill/uL (4.20-5.40); White Blood Cell (WBC) Count 3.6 thou/uL (4.8-10.8)
[2018-04-09] MEDS: Morphine 4 MG/ML VIAL SLOW IVP PRN ×4 (07:31→22:20)
[2018-04-09] MEDS: Ondansetron PF 4 MG/2 ML Vial IVP PRN ×2 (07:37→19:09)
[2018-04-09] MEDS: Enoxaparin Sodium 40 MG/0.4 ML SYRINGE SC SCH (09:26)
[2018-04-09] MEDS: Polyethylene Glycol 3350 17 GM Packet PO SCH (09:26)
[2018-04-09] MEDS: Carvedilol 25 MG TAB PO SCH ×2 (09:27→21:57)
[2018-04-09 09:28] LABS: Band 4 % (5-11); Eosinophils 6 % (0-10); Lymphocytes 45 % (21-51); MDiff Complete? YES; Monocytes 12 % (0-10); Neutrophil 32 % (42-75); RBC Morphology Normal
[2018-04-09] MEDS: FLUoxetine HCl 20 MG CAP PO SCH (09:28)
[2018-04-09] MEDS: Aripiprazole 10 MG TAB PO SCH (09:28)
[2018-04-09] MEDS: Gabapentin 300 MG CAP PO SCH ×2 (09:28→21:58)
[2018-04-09] MEDS: Sodium Chloride 0.9% 1,000 ML IV SCH ×2 (09:29→21:59)
[2018-04-09] MEDS: Lubiprostone 24 MCG CAP PO SCH ×2 (09:29→17:04)
[2018-04-09] MEDS: cloNIDine 0.1 MG TAB PO SCH ×3 (09:30→22:03)
[2018-04-09] MEDS: hydrALAZINE 25 MG TAB PO SCH ×3 (09:30→21:57)
[2018-04-09] MEDS: NIFEdipine XL 60 MG TAB PO SCH (09:31)
[2018-04-09] MEDS: Losartan 25 MG TAB PO SCH ×2 (09:31→11:43)
--- NOTE | 2018-04-09 13:24 | PRG ---
DATE OF SERVICE: 04/09/2018 SUBJECTIVE: Ms. Mosqueda actually feels better. She is tolerating full liquids without nausea, vomiting. She does not have much of an appetite. She states that she is passing gas. She has not had much of bowel movements today. OBJECTIVE: VITAL SIGNS: She is afebrile. Vital signs are stable. ABDOMEN: Soft, nontender, minimally distended without guarding or rebound. ASSESSMENT: Resolving ileus, likely related to resolving pancreatitis. PLAN: She is tolerating full liquids. Suspect slow advance of diet. Home early next week. Job ID: [id number]
--- NOTE | 2018-04-09 17:00 | PDOC.PN ---
- Subjective Encounter Start Date: 04/09/18 Encounter Start Time: 10:20 Pt seen for followup re: bowel obstruction. Passing flatus, tolearting clear fluids. - Objective Resuscitation Status - Order Detail: 03/18/18 11:30 Resuscitation Status Routine Co-Sign Provider: Resuscitation Status: FULL: Full Resuscitation Discussed with: patient and MAR Reviewed: Yes Vital Signs & Weight: Vital Signs (12 hours) Temp Pulse Resp BP BP Pulse Ox 04/09/18 15:27 130/92 H 04/09/18 11:42 162/97 H 04/09/18 11:29 98.3 F 96 18 162/97 H 94 L 04/09/18 09:31 103 H 04/09/18 09:30 103 H 117/80 04/09/18 08:00 98.7 F 103 H 18 117/80 94 L 04/09/18 07:58 95 Weight Admit Weight 209 lb 2 oz Weight 209 lb 2 oz Most Recent Monitor Data Heart Rate from ECG 87 NIBP 135/75 NIBP BP-Mean 95 Respiration from ECG 18 SpO2 95 I&O: 04/08/18 04/09/18 04/10/18 06:59 06:59 06:59 Intake Total 2911 1300 Balance 2911 1300 Result Diagrams: 04/09/18 06:27 04/09/18 06:27 Additional Labs: Accuchecks 04/09/18 04/09/18 04/08/18 11:32 04:35 23:12 POC Glucose 282 H 206 H 132 H 04/08/18 04/08/18 20:37 15:48 POC Glucose 133 H 188 H Labs reviewed by me Phys Exam - Physical Examination Obese HEENT: moist MMs Neck: full ROM Respiratory: clear to auscultation bilateral Cardiovascular: RRR Gastrointestinal: soft, non-tender Neurological: moves all 4 limbs Psychiatric: normal affect Dx/Plan (1) SBO (small bowel obstruction) Code(s): K56.609 - UNSP INTESTNL OBST, UNSP TO PARTIAL VERSUS COMPLETE OBST Status: Acute Comment: improving (2) Pancreatitis Code(s): K85.90 - ACUTE PANCREATITIS WITHOUT NECROSIS OR INFECTION, UNSP Status: Acute Qualifiers: Chronicity: acute Comment: Improving (3) MOOK (acute kidney injury) Code(s): N17.9 - ACUTE KIDNEY FAILURE, UNSPECIFIED Status: Acute Comment: creatinine 1.43 today (4) Hyperkalemia Code(s): E87.5 - HYPERKALEMIA Status: Resolved Comment: discontinued potassium supplements - Plan * . Pt is still on TPN Review of Systems - Review of Systems Cardiovascular: negative: chest pain, palpitations, orthopnea, paroxysmal nocturnal dyspnea, edema, light headedness Gastrointestinal: negative: Nausea, Vomiting, Abdominal Pain, Diarrhea, Constipation, Melena, Hematochezia - Medications/Allergies Allergies/Adverse Reactions: Allergies Allergy/AdvReac Type Severity Reaction Status Date / Time No Known Drug Allergies Allergy Verified 08/19/17 23:42 Medications: Current Medications Acetaminophen (Tylenol) 650 mg CO Q4H PRN PRN Reason: Headache/Fever/Mild Pain (1-3) Alteplase, Recombinant (Cathflo) 2 mg CATH ASDIR [facility] Last Admin: 04/07/18 20:30 Dose: 2 mg Aripiprazole (Abilify) 10 mg PO DAILY [facility] Last Admin: 04/09/18 09:28 Dose: 10 mg Bisacodyl (Dulcolax) 10 mg PO BID [facility] Carvedilol (Coreg) 25 mg PO BID [facility] Last Admin: 04/09/18 09:27 Dose: 25 mg Clonidine (Catapres) 0.3 mg PO BID [facility] Last Admin: 04/09/18 11:42 Dose: 0.3 mg Clonidine (Catapres) 0.1 mg PO Q4H PRN PRN Reason: Systolic BP > 180 Dextrose/Water (Dextrose 50%) 25 gm SLOW IVP PRN PRN PRN Reason: Hypoglycemia Last Admin: 03/19/18 13:35 Dose: 12.5 gm Doxepin HCl (Sinequan) 100 mg PO HS [facility] Last Admin: 04/08/18 20:48 Dose: 100 mg Enoxaparin Sodium (Lovenox) 40 mg SC 0900 [facility] Last Admin: 04/09/18 09:26 Dose: 40 mg Fluoxetine HCl (Prozac) 40 mg PO DAILY [facility] Last Admin: 04/09/18 09:28 Dose: 40 mg Gabapentin (Neurontin) 300 mg PO BID [facility] Last Admin: 04/09/18 09:28 Dose: 300 mg Glucagon (Glucagon) 1 mg IM PRN PRN PRN Reason: Hypoglycemia Hydralazine HCl (Apresoline) 10 mg SLOW IVP Q2H PRN PRN Reason: SBP > 180 and HR < 70 Last Admin: 03/30/18 14:08 Dose: 10 mg Hydralazine HCl (Apresoline) 100 mg PO TID [facility] Last Admin: 04/09/18 15:27 Dose: 100 mg Dextrose/Water (D5w) 1,000 mls @ 0 mls/hr IV .Q0M PRN PRN Reason: Hypoglycemia Sodium Chloride (Normal Saline 0.9%) 1,000 mls @ 75 mls/hr IV .[id number] [facility] Last Admin: 04/09/18 09:29 Dose: Not Given Sodium Acetate 40 meq/ Sodium Chloride 30 meq/ Sodium Phosphate 30 mmol/ Calcium Gluconate 10 meq/ Magnesium Sulfate 10 meq/ Multivitamins 10 ml/ Chromium/Copper/Manganese/Seleni/Zn 5 ml/ Fat Emulsion Intravenous 200 ml/ Dextrose/Water/ Sterile Water/Amino Acids 1,776.7021 mls @ 74.029 mls/hr IV 2200 [facility] Last Admin: 04/08/18 23:03 Dose: 1,776.7021 mls Insulin Human Lispro (Humalog) 0 units SC .MILD SLIDING SCALE PRN PRN Reason: Mild Correctional Scale Last Admin: 04/09/18 17:04 Dose: 3 unit Labetalol HCl (Normodyne) 10 mg SLOW IVP Q4H PRN PRN Reason: SBP Greater Than 180 Last Admin: 03/30/18 12:37 Dose: 10 ml Losartan Potassium (Cozaar) 100 mg PO DAILY [facility] Last Admin: 04/09/18 11:43 Dose: 100 mg Lubiprostone (Amitiza) 24 mcg PO BID-[facility] Last Admin: 04/09/18 17:04 Dose: 24 mcg Miscellaneous Medication (Pharmacy To Dose) 1 each IVPB PRN PRN PRN Reason: Pharmacy to dose Morphine Sulfate (Morphine) 4 mg SLOW IVP Q4H PRN PRN Reason: Moderate to Severe Pain (6-10) Last Admin: 04/09/18 07:31 Dose: 4 mg Morphine Sulfate (Morphine) 2 mg SLOW IVP Q4H PRN PRN Reason: Mild-Moderate Pain (1-5) Last Admin: 04/09/18 11:27 Dose: 2 mg Nifedipine (Procardia Xl) 60 mg PO DAILY [facility] Last Admin: 04/09/18 09:31 Dose: 60 mg Ondansetron HCl (Zofran Odt) 4 mg PO Q6H PRN PRN Reason: Nausea/Vomiting Last Admin: 04/01/18 15:49 Dose: 4 mg Ondansetron HCl (Zofran) 4 mg IVP Q4H PRN PRN Reason: Nausea/Vomiting Last Admin: 04/09/18 07:37 Dose: 4 mg Pantoprazole Sodium (Protonix) 40 mg PO DAILY [facility] Last Admin: 04/09/18 09:31 Dose: 40 mg Polyethylene Glycol (Miralax) 17 gm PO DAILY [facility] Last Admin: 04/09/18 09:26 Dose: 17 gm Quetiapine Fumarate (Seroquel) 400 mg PO HS [facility] Last Admin: 04/08/18 20:48 Dose: 400 mg Sodium Chloride (Flush - Normal Saline) 10 ml IVF Q12HR [facility] Last Admin: 04/09/18 09:31 Dose: Not Given Sodium Chloride (Flush - Normal Saline) 10 ml IVF PRN PRN PRN Reason: Saline Flush Last Admin: 04/04/18 23:10 Dose: 10 ml
--- NOTE | 2018-04-09 17:17 | PRG ---
DATE OF SERVICE: 04/09/2018 SUBJECTIVE: Overall, the patient's feels better with less abdominal pain. She is walking well. She is passing gas. Mild nausea, but no vomiting. She wants to try some regular food. OBJECTIVE: VITAL SIGNS: Temperature is 98.3, blood pressure 130/92, and pulse of 96. GENERAL: She is alert, no distress. HEENT: Shows anicteric sclerae. NECK: Supple. Cardiovascular: Shows normal S1 and S2. Regular rate and rhythm. CHEST: Show breath sounds. ABDOMEN: Protuberant, but less distended. No tympany. She has active bowel sounds. EXTREMITIES: Show no edema. LABORATORY DATA: WBCs 3.6, hemoglobin 11.1, and platelet count of 334. Electrolytes within normal range. Creatinine 1.43. KUB yesterday afternoon showed decompressed small bowel and colon. ASSESSMENT: 1. Abdominal pain, improving. Likely from resolving pancreatitis on top of her chronic abdominal pain. 2. Acute pancreatitis of unknown etiology, clinically better. 3. Partial small bowel obstruction, resolved. 4. Crohn disease, in remission. 5. Diabetes/hypertension/coronary artery disease, stable. 6. Status post mental status change and psychosis from medication withdrawal, resolved. RECOMMENDATIONS: 1. I will advance to diabetic control, regular diet, low fat. 2. Continue with frequent ambulation. 3. Dulcolax suppository every shift for colonic and enteric stimulation. 4. Hopefully, she can be discharged to home soon if she can tolerate diet. Job ID: [id number]
[2018-04-09] MEDS ORDERED: HYDROcodone/Acetaminophen 5/325 mg Tablet PO PRN (21:46)
[2018-04-09] MEDS: Doxepin HCl 25 MG CAP PO SCH (21:58)
[2018-04-09] MEDS: Bisacodyl 5 MG TAB PO SCH (21:58)
[2018-04-09] MEDS: SODIUM PHOSPHATE IV SCH (22:20)
[2018-04-09] MEDS: [UNRECOGNIZED DRUG - OTHER] IV SCH (22:20)
[2018-04-09] MEDS: SODIUM CHLORIDE IV SCH (22:20)
[2018-04-09] MEDS: SODIUM ACETATE IV SCH (22:20)
[2018-04-10] MEDS: Morphine 4 MG/ML VIAL SLOW IVP PRN ×3 (06:27→21:33)
[2018-04-10] MEDS: HumaLOG 300 UNITS/3 ML VIAL SC PRN ×3 (06:32→18:55)
[2018-04-10 06:55] LABS: Anion Gap 11 mmol/L (10-20); BUN (Urea Nitrogen) 14 mg/dL (9.8-20.1); Calc. Creatinine Clearance 66 mL/min (70-130); Calcium 8.8 mg/dL (7.8-10.44); Carbon Dioxide 25 mmol/L (23-31); Chloride 104 mmol/L (98-107); Estimated GFR-MDRD 50; Glucose 218 mg/dL (80-115); Sodium 136 mmol/L (136-145)
[2018-04-10 07:40] LABS: Eosinophils 7 % (0-10); Hemoglobin 11.2 g/dL (12.0-16.0); Lymphocytes 12 % (21-51); MDiff Complete? YES; Mean Corpuscular HGB CONC 33.5 g/dL (32.0-36.0); Mean Corpuscular Volume 98.5 fL (78.0-98.0); Mean Platelet Volume 7.7 fL (7.4-10.4); Monocytes 25 % (0-10); Neutrophil 40 % (42-75); Platelet Count 309 thou/uL (130-400); Platelet Morphology Comment Appears Adequate; RBC Distribution Width 13.7 % (11.5-14.5); Reactive Lymphocytes 15 % (0-10); White Blood Cell (WBC) Count 3.6 thou/uL (4.8-10.8)
[2018-04-10] MEDS: Enoxaparin Sodium 40 MG/0.4 ML SYRINGE SC SCH (08:33)
[2018-04-10] MEDS: Losartan 25 MG TAB PO SCH (08:34)
[2018-04-10] MEDS: cloNIDine 0.1 MG TAB PO SCH ×2 (08:34→22:44)
[2018-04-10] MEDS: NIFEdipine XL 60 MG TAB PO SCH (08:35)
[2018-04-10] MEDS: Carvedilol 25 MG TAB PO SCH ×2 (08:35→22:44)
[2018-04-10] MEDS: hydrALAZINE 25 MG TAB PO SCH ×4 (08:35→22:45)
[2018-04-10] MEDS: Aripiprazole 10 MG TAB PO SCH (08:35)
[2018-04-10] MEDS: Bisacodyl 5 MG TAB PO SCH ×2 (08:36→22:44)
[2018-04-10] MEDS: Lubiprostone 24 MCG CAP PO SCH ×2 (08:36→18:54)
[2018-04-10] MEDS: FLUoxetine HCl 20 MG CAP PO SCH (08:36)
[2018-04-10] MEDS: Gabapentin 300 MG CAP PO SCH ×2 (08:36→22:45)
[2018-04-10] MEDS: Polyethylene Glycol 3350 17 GM Packet PO SCH (08:37)
[2018-04-10] MEDS: Ondansetron PF 4 MG/2 ML Vial IVP PRN ×3 (08:42→21:33)
--- NOTE | 2018-04-10 11:38 | PDOC.PN ---
- Subjective Encounter Start Date: 04/10/18 Encounter Start Time: 10:20 Pt seen for followup re: bowel obstruction. Passing flatus. No BM yesterday. Tolerating solid diet. - Objective Resuscitation Status - Order Detail: 03/18/18 11:30 Resuscitation Status Routine Co-Sign Provider: Resuscitation Status: FULL: Full Resuscitation Discussed with: patient and Vital Signs & Weight: Vital Signs (12 hours) Temp Pulse Resp BP Pulse Ox 04/10/18 08:12 98.6 F 96 18 136/85 94 L Weight Admit Weight 209 lb 2 oz Weight 209 lb 2 oz Most Recent Monitor Data Heart Rate from ECG 87 NIBP 135/75 NIBP BP-Mean 95 Respiration from ECG 18 SpO2 95 I&O: 04/09/18 04/10/18 04/11/18 06:59 06:59 06:59 Intake Total 1300 Balance 1300 Result Diagrams: 04/10/18 06:24 04/10/18 06:24 Additional Labs: Accuchecks 04/10/18 04/09/18 04/09/18 03:06 19:38 17:00 POC Glucose 251 H 215 H 207 H 04/09/18 11:32 POC Glucose 282 H Phys Exam - Physical Examination Constitutional: NAD HEENT: moist MMs Neck: supple Respiratory: clear to auscultation bilateral Cardiovascular: RRR Gastrointestinal: positive bowel sounds Neurological: moves all 4 limbs Psychiatric: normal affect Dx/Plan (1) SBO (small bowel obstruction) Code(s): K56.609 - UNSP INTESTNL OBST, UNSP TO PARTIAL VERSUS COMPLETE OBST Status: Acute Comment: significantly improved (2) MOOK (acute kidney injury) Code(s): N17.9 - ACUTE KIDNEY FAILURE, UNSPECIFIED Status: Acute Comment: creatinine 1.30 today (3) Hyperkalemia Code(s): E87.5 - HYPERKALEMIA Status: Resolved (4) Pancreatitis Code(s): K85.90 - ACUTE PANCREATITIS WITHOUT NECROSIS OR INFECTION, UNSP Status: Resolved Qualifiers: Chronicity: acute - Plan * . Review of Systems - Review of Systems Gastrointestinal: negative: Nausea, Vomiting, Abdominal Pain, Diarrhea, Constipation, Melena, Hematochezia Genitourinary: negative: Dysuria, Frequency, Incontinence, Hematuria, Retention - Medications/Allergies Allergies/Adverse Reactions: Allergies Allergy/AdvReac Type Severity Reaction Status Date / Time No Known Drug Allergies Allergy Verified 08/19/17 23:42 Medications: Current Medications Acetaminophen (Tylenol) 650 mg PA Q4H PRN PRN Reason: Headache/Fever/Mild Pain (1-3) Hydrocodone Bitart/Acetaminophen ([place] 5/325) 1 tab PO Q4H PRN PRN Reason: Pain Last Admin: 04/10/18 10:08 Dose: 1 tab Alteplase, Recombinant (Cathflo) 2 mg CATH ASDIR [facility] Last Admin: 04/07/18 20:30 Dose: 2 mg Aripiprazole (Abilify) 10 mg PO DAILY [facility] Last Admin: 04/10/18 08:35 Dose: 10 mg Bisacodyl (Dulcolax) 10 mg PO BID [facility] Last Admin: 04/10/18 08:36 Dose: 10 mg Carvedilol (Coreg) 25 mg PO BID [facility] Last Admin: 04/10/18 08:35 Dose: 25 mg Clonidine (Catapres) 0.3 mg PO BID [facility] Last Admin: 04/10/18 08:34 Dose: 0.3 mg Clonidine (Catapres) 0.1 mg PO Q4H PRN PRN Reason: Systolic BP > 180 Dextrose/Water (Dextrose 50%) 25 gm SLOW IVP PRN PRN PRN Reason: Hypoglycemia Last Admin: 03/19/18 13:35 Dose: 12.5 gm Doxepin HCl (Sinequan) 100 mg PO HS [facility] Last Admin: 04/09/18 21:58 Dose: 100 mg Enoxaparin Sodium (Lovenox) 40 mg SC 0900 [facility] Last Admin: 04/10/18 08:33 Dose: 40 mg Fluoxetine HCl (Prozac) 40 mg PO DAILY [facility] Last Admin: 04/10/18 08:36 Dose: 40 mg Gabapentin (Neurontin) 300 mg PO BID [facility] Last Admin: 04/10/18 08:36 Dose: 300 mg Glucagon (Glucagon) 1 mg IM PRN PRN PRN Reason: Hypoglycemia Hydralazine HCl (Apresoline) 10 mg SLOW IVP Q2H PRN PRN Reason: SBP > 180 and HR < 70 Last Admin: 03/30/18 14:08 Dose: 10 mg Hydralazine HCl (Apresoline) 100 mg PO TID [facility] Last Admin: 04/10/18 08:35 Dose: 100 mg Dextrose/Water (D5w) 1,000 mls @ 0 mls/hr IV .Q0M PRN PRN Reason: Hypoglycemia Sodium Chloride (Normal Saline 0.9%) 1,000 mls @ 75 mls/hr IV .[id number] [facility] Last Admin: 04/09/18 21:59 Dose: Not Given Sodium Acetate 40 meq/ Sodium Chloride 30 meq/ Sodium Phosphate 30 mmol/ Calcium Gluconate 10 meq/ Magnesium Sulfate 10 meq/ Multivitamins 10 ml/ Chromium/Copper/Manganese/Seleni/Zn 5 ml/ Fat Emulsion Intravenous 200 ml/ Dextrose/Water/ Sterile Water/Amino Acids 1,776.7021 mls @ 74.029 mls/hr IV 2200 [facility] Last Admin: 04/09/18 22:20 Dose: 1,776.7021 mls Insulin Human Lispro (Humalog) 0 units SC .MILD SLIDING SCALE PRN PRN Reason: Mild Correctional Scale Last Admin: 04/10/18 06:32 Dose: 4 unit Labetalol HCl (Normodyne) 10 mg SLOW IVP Q4H PRN PRN Reason: SBP Greater Than 180 Last Admin: 03/30/18 12:37 Dose: 10 ml Losartan Potassium (Cozaar) 100 mg PO DAILY [facility] Last Admin: 04/10/18 08:34 Dose: 100 mg Lubiprostone (Amitiza) 24 mcg PO BID-[facility] Last Admin: 04/10/18 08:36 Dose: 24 mcg Miscellaneous Medication (Pharmacy To Dose) 1 each IVPB PRN PRN PRN Reason: Pharmacy to dose Morphine Sulfate (Morphine) 4 mg SLOW IVP Q4H PRN PRN Reason: Moderate to Severe Pain (6-10) Last Admin: 04/10/18 06:27 Dose: 4 mg Morphine Sulfate (Morphine) 2 mg SLOW IVP Q4H PRN PRN Reason: Mild-Moderate Pain (1-5) Last Admin: 04/09/18 19:13 Dose: 2 mg Nifedipine (Procardia Xl) 60 mg PO DAILY [facility] Last Admin: 04/10/18 08:35 Dose: 60 mg Ondansetron HCl (Zofran Odt) 4 mg PO Q6H PRN PRN Reason: Nausea/Vomiting Last Admin: 04/01/18 15:49 Dose: 4 mg Ondansetron HCl (Zofran) 4 mg IVP Q4H PRN PRN Reason: Nausea/Vomiting Last Admin: 04/10/18 08:42 Dose: 4 mg Pantoprazole Sodium (Protonix) 40 mg PO DAILY [facility] Last Admin: 04/10/18 08:36 Dose: 40 mg Polyethylene Glycol (Miralax) 17 gm PO DAILY [facility] Last Admin: 04/10/18 08:37 Dose: 17 gm Quetiapine Fumarate (Seroquel) 400 mg PO HS [facility] Last Admin: 04/09/18 21:57 Dose: 400 mg Sodium Chloride (Flush - Normal Saline) 10 ml IVF Q12HR [facility] Last Admin: 04/10/18 08:37 Dose: Not Given Sodium Chloride (Flush - Normal Saline) 10 ml IVF PRN PRN PRN Reason: Saline Flush Last Admin: 04/10/18 08:43 Dose: 10 ml
--- NOTE | 2018-04-10 13:39 | PRG ---
DATE OF SERVICE: 04/10/2018 GI INPATIENT DAILY PROGRESS NOTE SUBJECTIVE: Ms. Mosqueda was advanced to a regular diet last night. She says that she is tolerating this with no nausea or vomiting, but she still does have significant postprandial epigastric pain and fullness. She has not had much appetite. She says she had a single piece of broccoli for lunch today. She continues on TPN. She has been otherwise stable. She is passing flatus, but no bowel movements as of yet. OBJECTIVE: VITAL SIGNS: Temperature 98.1, pulse 87, blood pressure 113/76, and 94% oxygen saturation on room air. GENERAL: No acute distress. HEART: Regular rate and rhythm. LUNGS: Clear to auscultation bilaterally. ABDOMEN: Mild distention. Dull to percussion throughout. Bowel sounds are present, though hypoactive. The abdomen is soft. There is diffuse tenderness to palpation, but no guarding or rebound tenderness. EXTREMITIES: No peripheral edema. LABORATORY STUDIES: WBC 3.6, hemoglobin 11.2, platelets 309. Sodium 136, potassium 4.0, BUN 14, and creatinine 1.3. ASSESSMENT AND PLAN: 1. Abdominal pain, stable. 2. Acute pancreatitis of unknown etiology, improved. 3. Partial small-bowel obstruction, resolved. 4. Crohn disease, in remission. I encouraged her to continue with frequent ambulation and also increase oral fluid intake, continue the Dulcolax. Hopefully, she will be able to continue to advance her diet. Job ID: [id number]
[2018-04-10] MEDS: Sodium Chloride 0.9% 1,000 ML IV SCH (14:21)
[2018-04-10] MEDS: SODIUM CHLORIDE IV SCH (22:43)
[2018-04-10] MEDS: [UNRECOGNIZED DRUG - OTHER] IV SCH (22:43)
[2018-04-10] MEDS: SODIUM ACETATE IV SCH (22:43)
[2018-04-10] MEDS: SODIUM PHOSPHATE IV SCH (22:43)
[2018-04-10] MEDS: Doxepin HCl 25 MG CAP PO SCH (22:45)
[2018-04-11] MEDS: HumaLOG 300 UNITS/3 ML VIAL SC PRN ×3 (06:18→17:00)
[2018-04-11] MEDS: Morphine 4 MG/ML VIAL SLOW IVP PRN ×3 (08:35→20:17)
[2018-04-11] MEDS: Ondansetron PF 4 MG/2 ML Vial IVP PRN ×3 (08:36→20:18)
[2018-04-11] MEDS: Polyethylene Glycol 3350 17 GM Packet PO SCH (08:41)
[2018-04-11] MEDS: cloNIDine 0.1 MG TAB PO SCH ×2 (08:41→20:23)
[2018-04-11] MEDS: Losartan 25 MG TAB PO SCH (08:42)
[2018-04-11] MEDS: Carvedilol 25 MG TAB PO SCH ×2 (08:42→20:23)
[2018-04-11] MEDS: hydrALAZINE 25 MG TAB PO SCH ×3 (08:42→20:24)
[2018-04-11] MEDS: Aripiprazole 10 MG TAB PO SCH (08:43)
[2018-04-11] MEDS: Bisacodyl 5 MG TAB PO SCH ×2 (08:43→20:22)
[2018-04-11] MEDS: FLUoxetine HCl 20 MG CAP PO SCH (08:43)
[2018-04-11] MEDS: NIFEdipine XL 60 MG TAB PO SCH (08:43)
[2018-04-11] MEDS: Gabapentin 300 MG CAP PO SCH ×2 (08:44→20:23)
[2018-04-11] MEDS: Enoxaparin Sodium 40 MG/0.4 ML SYRINGE SC SCH (08:44)
[2018-04-11] MEDS: Lubiprostone 24 MCG CAP PO SCH ×2 (10:07→16:59)
[2018-04-11 10:14] LABS: #Eosinphils 0.2 thou/uL (0.0-0.7); #Lymphocytes 1.5 thou/uL (1.20-3.40); #Monocytes 0.4 thou/uL (0.11-0.59); #Neutrophils 1.1 thou/uL (1.40-6.50); %Basophils 1.1 % (0.0-1.0); %Eosinophils 5.3 % (0.0-10.0); %Lymphocytes 45.5 % (21.0-51.0); %Monocytes 13.3 % (0.0-10.0); %Neutrophils 34.8 % (42.0-75.0); Hemoglobin 11.1 g/dL (12.0-16.0); Mean Corpuscular HGB CONC 32.4 g/dL (32.0-36.0); Mean Corpuscular Hemoglobin 31.6 pg (27.0-31.0); Mean Corpuscular Volume 97.6 fL (78.0-98.0); Mean Platelet Volume 8.3 fL (7.4-10.4); Platelet Count 304 thou/uL (130-400); RBC Distribution Width 13.7 % (11.5-14.5); Red Blood Cell (RBC) Count 3.52 mill/uL (4.20-5.40); White Blood Cell (WBC) Count 3.2 thou/uL (4.8-10.8)
[2018-04-11 10:33] LABS: Anion Gap 12 mmol/L (10-20); BUN (Urea Nitrogen) 16 mg/dL (9.8-20.1); Calc. Creatinine Clearance 65 mL/min (70-130); Carbon Dioxide 23 mmol/L (23-31); Chloride 104 mmol/L (98-107); Estimated GFR-MDRD 49; Glucose 252 mg/dL (80-115); Potassium 3.9 mmol/L (3.5-5.1); Sodium 135 mmol/L (136-145)
--- NOTE | 2018-04-11 12:26 | PRG ---
DATE OF SERVICE: 04/11/2018 GI INPATIENT DAILY PROGRESS NOTE SUBJECTIVE: Ms. Mosqueda is feeling okay this morning. She has been tolerating liquids just fine. It does not make her nauseated. There has been no vomiting. However, she does say anything she takes and still gives her some pain across the mid section of the abdomen. She has not had a bowel movement for the past several days. She continues on TPN. OBJECTIVE: VITAL SIGNS: Temperature 98.5, pulse 88, blood pressure 123/80, and 93% oxygen saturation on room air. GENERAL: No acute distress. HEART: Regular rate and rhythm. LUNGS: Clear to auscultation bilaterally. ABDOMEN: Bowel sounds are present, though hypoactive. Abdomen is nondistended and soft. Some tenderness to palpation throughout the abdomen, but no guarding or rebound tenderness. EXTREMITIES: No peripheral edema. LABORATORY STUDIES: Sodium 135, potassium 3.9, BUN 16, creatinine 1.32, calcium 9.0. WBC 3.2, hemoglobin 11.1, and platelets 304. ASSESSMENT AND PLAN: 1. Abdominal pain, stable. 2. Acute pancreatitis, appears to have resolved. 3. Partial small-bowel obstruction, resolved. 4. Crohn disease, in remission. I again encouraged her to continue with the frequent ambulation. She has been pushing oral fluids pretty well. Continue to advance diet as tolerated. It would be helpful if she could minimize narcotic pain medication. She has still been getting [place] and morphine. She continues on Amitiza and MiraLAX as well. Job ID: [id number]
--- NOTE | 2018-04-11 12:58 | PDOC.PN ---
- Subjective Encounter Start Date: 04/11/18 Encounter Start Time: 09:00 Pt seen for followup re: bowel obstruction. Feels well, tolerating diet, no BM today. passing flatus. - Objective Resuscitation Status - Order Detail: 03/18/18 11:30 Resuscitation Status Routine Co-Sign Provider: Resuscitation Status: FULL: Full Resuscitation Discussed with: patient and Vital Signs & Weight: Vital Signs (12 hours) Temp Pulse Resp BP BP Pulse Ox 04/11/18 12:13 98.3 F 89 16 114/77 93 L 04/11/18 08:43 88 123/80 04/11/18 08:42 88 123/80 04/11/18 08:41 123/80 04/11/18 08:00 93 L 04/11/18 07:55 98.5 F 88 16 123/80 93 L Weight Admit Weight 209 lb 2 oz Weight 209 lb 2 oz Most Recent Monitor Data Heart Rate from ECG 87 NIBP 135/75 NIBP BP-Mean 95 Respiration from ECG 18 SpO2 95 Result Diagrams: 04/11/18 09:42 04/11/18 09:42 Additional Labs: Accuchecks 04/11/18 04/11/18 04/10/18 11:50 06:14 20:11 POC Glucose 254 H 284 H 196 H 04/10/18 16:05 POC Glucose 207 H Phys Exam - Physical Examination Obese HEENT: moist MMs Neck: supple Respiratory: clear to auscultation bilateral Cardiovascular: RRR Gastrointestinal: soft, positive bowel sounds Neurological: moves all 4 limbs Psychiatric: normal affect Dx/Plan (1) SBO (small bowel obstruction) Code(s): K56.609 - UNSP INTESTNL OBST, UNSP TO PARTIAL VERSUS COMPLETE OBST Status: Acute Comment: Improving, tolerating diet, passing flatus. Also on TPN. (2) MOOK (acute kidney injury) Code(s): N17.9 - ACUTE KIDNEY FAILURE, UNSPECIFIED Status: Acute Comment: stabilizing, creatinine 1.32 today (3) Hyperkalemia Code(s): E87.5 - HYPERKALEMIA Status: Resolved (4) Pancreatitis Code(s): K85.90 - ACUTE PANCREATITIS WITHOUT NECROSIS OR INFECTION, UNSP Status: Resolved Qualifiers: Chronicity: acute - Plan * . Review of Systems - Review of Systems Cardiovascular: negative: chest pain, palpitations, orthopnea, paroxysmal nocturnal dyspnea, edema, light headedness Gastrointestinal: negative: Nausea, Vomiting, Abdominal Pain, Diarrhea, Constipation, Melena, Hematochezia - Medications/Allergies Allergies/Adverse Reactions: Allergies Allergy/AdvReac Type Severity Reaction Status Date / Time No Known Drug Allergies Allergy Verified 08/19/17 23:42 Medications: Current Medications Acetaminophen (Tylenol) 650 mg ID Q4H PRN PRN Reason: Headache/Fever/Mild Pain (1-3) Hydrocodone Bitart/Acetaminophen ([place] 5/325) 1 tab PO Q4H PRN PRN Reason: Pain Last Admin: 04/10/18 10:08 Dose: 1 tab Alteplase, Recombinant (Cathflo) 2 mg CATH ASDIR [facility] Last Admin: 04/07/18 20:30 Dose: 2 mg Aripiprazole (Abilify) 10 mg PO DAILY [facility] Last Admin: 04/11/18 08:43 Dose: 10 mg Bisacodyl (Dulcolax) 10 mg PO BID [facility] Last Admin: 04/11/18 08:43 Dose: 10 mg Carvedilol (Coreg) 25 mg PO BID [facility] Last Admin: 04/11/18 08:42 Dose: 25 mg Clonidine (Catapres) 0.3 mg PO BID [facility] Last Admin: 04/11/18 08:41 Dose: 0.3 mg Clonidine (Catapres) 0.1 mg PO Q4H PRN PRN Reason: Systolic BP > 180 Dextrose/Water (Dextrose 50%) 25 gm SLOW IVP PRN PRN PRN Reason: Hypoglycemia Last Admin: 03/19/18 13:35 Dose: 12.5 gm Doxepin HCl (Sinequan) 100 mg PO HS [facility] Last Admin: 04/10/18 22:45 Dose: 100 mg Enoxaparin Sodium (Lovenox) 40 mg SC 0900 [facility] Last Admin: 04/11/18 08:44 Dose: 40 mg Fluoxetine HCl (Prozac) 40 mg PO DAILY [facility] Last Admin: 04/11/18 08:43 Dose: 40 mg Gabapentin (Neurontin) 300 mg PO BID [facility] Last Admin: 04/11/18 08:44 Dose: 300 mg Glucagon (Glucagon) 1 mg IM PRN PRN PRN Reason: Hypoglycemia Hydralazine HCl (Apresoline) 10 mg SLOW IVP Q2H PRN PRN Reason: SBP > 180 and HR < 70 Last Admin: 03/30/18 14:08 Dose: 10 mg Hydralazine HCl (Apresoline) 100 mg PO TID [facility] Last Admin: 04/11/18 08:42 Dose: 100 mg Dextrose/Water (D5w) 1,000 mls @ 0 mls/hr IV .Q0M PRN PRN Reason: Hypoglycemia Sodium Acetate 40 meq/ Sodium Chloride 30 meq/ Sodium Phosphate 30 mmol/ Calcium Gluconate 10 meq/ Magnesium Sulfate 10 meq/ Multivitamins 10 ml/ Chromium/Copper/Manganese/Seleni/Zn 5 ml/ Fat Emulsion Intravenous 200 ml/ Dextrose/Water/ Sterile Water/Amino Acids 1,776.7021 mls @ 74.029 mls/hr IV 2200 [facility] Last Admin: 04/10/18 22:43 Dose: 1,776.7021 mls Insulin Human Lispro (Humalog) 0 units SC .MILD SLIDING SCALE PRN PRN Reason: Mild Correctional Scale Last Admin: 04/11/18 12:19 Dose: 4 unit Labetalol HCl (Normodyne) 10 mg SLOW IVP Q4H PRN PRN Reason: SBP Greater Than 180 Last Admin: 03/30/18 12:37 Dose: 10 ml Losartan Potassium (Cozaar) 100 mg PO DAILY [facility] Last Admin: 04/11/18 08:42 Dose: 100 mg Lubiprostone (Amitiza) 24 mcg PO BID[facility] Last Admin: 04/11/18 10:07 Dose: 24 mcg Miscellaneous Medication (Pharmacy To Dose) 1 each IVPB PRN PRN PRN Reason: Pharmacy to dose Morphine Sulfate (Morphine) 4 mg SLOW IVP Q4H PRN PRN Reason: Moderate to Severe Pain (6-10) Last Admin: 04/10/18 21:33 Dose: 4 mg Morphine Sulfate (Morphine) 2 mg SLOW IVP Q4H PRN PRN Reason: Mild-Moderate Pain (1-5) Last Admin: 04/11/18 08:35 Dose: 2 mg Nifedipine (Procardia Xl) 60 mg PO DAILY [facility] Last Admin: 04/11/18 08:43 Dose: 60 mg Ondansetron HCl (Zofran Odt) 4 mg PO Q6H PRN PRN Reason: Nausea/Vomiting Last Admin: 04/01/18 15:49 Dose: 4 mg Ondansetron HCl (Zofran) 4 mg IVP Q4H PRN PRN Reason: Nausea/Vomiting Last Admin: 04/11/18 08:36 Dose: 4 mg Pantoprazole Sodium (Protonix) 40 mg PO DAILY [facility] Last Admin: 04/11/18 08:43 Dose: 40 mg Polyethylene Glycol (Miralax) 17 gm PO DAILY [facility] Last Admin: 04/11/18 08:41 Dose: 17 gm Quetiapine Fumarate (Seroquel) 400 mg PO HS [facility] Last Admin: 04/10/18 22:46 Dose: 400 mg Sodium Chloride (Flush - Normal Saline) 10 ml IVF Q12HR [facility] Last Admin: 04/11/18 10:07 Dose: Not Given Sodium Chloride (Flush - Normal Saline) 10 ml IVF PRN PRN PRN Reason: Saline Flush Last Admin: 04/10/18 08:43 Dose: 10 ml
[2018-04-11] MEDS: Doxepin HCl 25 MG CAP PO SCH (20:23)
[2018-04-11] MEDS: SODIUM PHOSPHATE IV SCH (22:41)
[2018-04-11] MEDS: SODIUM ACETATE IV SCH (22:41)
[2018-04-11] MEDS: SODIUM CHLORIDE IV SCH (22:41)
[2018-04-11] MEDS: [UNRECOGNIZED DRUG - OTHER] IV SCH (22:41)
[2018-04-12] MEDS: Morphine 4 MG/ML VIAL SLOW IVP PRN ×3 (05:38→16:48)
[2018-04-12] MEDS: Ondansetron PF 4 MG/2 ML Vial IVP PRN ×3 (05:38→21:17)
[2018-04-12] MEDS: HumaLOG 300 UNITS/3 ML VIAL SC PRN ×3 (05:41→16:52)
[2018-04-12] MEDS: cloNIDine 0.1 MG TAB PO SCH ×2 (08:39→21:13)
[2018-04-12] MEDS: NIFEdipine XL 60 MG TAB PO SCH (08:40)
[2018-04-12] MEDS: Losartan 25 MG TAB PO SCH (08:40)
[2018-04-12] MEDS: Lubiprostone 24 MCG CAP PO SCH ×2 (08:40→16:43)
[2018-04-12] MEDS: Aripiprazole 10 MG TAB PO SCH (08:40)
[2018-04-12] MEDS: hydrALAZINE 25 MG TAB PO SCH ×3 (08:41→21:22)
[2018-04-12] MEDS: FLUoxetine HCl 20 MG CAP PO SCH (08:41)
[2018-04-12] MEDS: Gabapentin 300 MG CAP PO SCH ×2 (08:42→21:14)
[2018-04-12] MEDS: Carvedilol 25 MG TAB PO SCH ×2 (08:43→21:13)
[2018-04-12] MEDS: Enoxaparin Sodium 40 MG/0.4 ML SYRINGE SC SCH (08:43)
[2018-04-12] MEDS: Polyethylene Glycol 3350 17 GM Packet PO SCH (08:43)
[2018-04-12] MEDS: Bisacodyl 5 MG TAB PO SCH ×2 (08:43→21:14)
[2018-04-12] MEDS ORDERED: traMADol HCl 50 MG TAB PO PRN (11:16)
[2018-04-12 11:55] LABS: #Eosinphils 0.2 thou/uL (0.0-0.7); #Lymphocytes 1.9 thou/uL (1.20-3.40); #Monocytes 0.5 thou/uL (0.11-0.59); #Neutrophils 1.6 thou/uL (1.40-6.50); %Basophils 1.1 % (0.0-1.0); %Eosinophils 4.3 % (0.0-10.0); %Lymphocytes 44.6 % (21.0-51.0); %Monocytes 11.8 % (0.0-10.0); %Neutrophils 38.3 % (42.0-75.0); Hemoglobin 11.1 g/dL (12.0-16.0); Mean Corpuscular HGB CONC 33.7 g/dL (32.0-36.0); Mean Corpuscular Hemoglobin 33.1 pg (27.0-31.0); Mean Corpuscular Volume 98.1 fL (78.0-98.0); Mean Platelet Volume 8.1 fL (7.4-10.4); Platelet Count 298 thou/uL (130-400); RBC Distribution Width 13.5 % (11.5-14.5); Red Blood Cell (RBC) Count 3.36 mill/uL (4.20-5.40); White Blood Cell (WBC) Count 4.3 thou/uL (4.8-10.8)
[2018-04-12 11:58] LABS: Anion Gap 17 mmol/L (10-20); BUN (Urea Nitrogen) 17 mg/dL (9.8-20.1); Calc. Creatinine Clearance 64 mL/min (70-130); Calcium 8.7 mg/dL (7.8-10.44); Carbon Dioxide 20 mmol/L (23-31); Chloride 104 mmol/L (98-107); Estimated GFR-MDRD 48; Glucose 248 mg/dL (80-115); Sodium 137 mmol/L (136-145)
[2018-04-12] MEDS: traMADol HCl 50 MG TAB PO PRN ×2 (12:55→21:14)
--- NOTE | 2018-04-12 17:12 | PDOC.PN ---
- Subjective Encounter Start Date: 04/12/18 Encounter Start Time: 08:00 Pt seen for followup re: bowel obstruction. Tolerating diet, had BM. - Objective Resuscitation Status - Order Detail: 03/18/18 11:30 Resuscitation Status Routine Co-Sign Provider: Resuscitation Status: FULL: Full Resuscitation Discussed with: patient and MAR Reviewed: Yes Vital Signs & Weight: Vital Signs (12 hours) Temp Pulse Resp BP BP Pulse Ox 04/12/18 16:42 92 118/76 04/12/18 08:41 92 138/88 04/12/18 08:40 92 138/88 04/12/18 08:39 138/88 04/12/18 08:10 98.3 F 92 20 138/88 96 04/12/18 08:00 96 Weight Admit Weight 209 lb 2 oz Weight 209 lb 2 oz Most Recent Monitor Data Heart Rate from ECG 87 NIBP 135/75 NIBP BP-Mean 95 Respiration from ECG 18 SpO2 95 I&O: 04/11/18 04/12/18 04/13/18 06:59 06:59 06:59 Intake Total 1128 Balance 1128 Result Diagrams: 04/12/18 11:29 04/12/18 11:29 Additional Labs: Accuchecks 04/12/18 04/12/18 04/12/18 16:52 11:35 04:05 POC Glucose 196 H 253 H 241 H 04/11/18 04/11/18 20:15 17:01 POC Glucose 202 H 208 H Labs reviewed by me Phys Exam - Physical Examination Constitutional: NAD HEENT: moist MMs Neck: supple Respiratory: clear to auscultation bilateral Cardiovascular: RRR Gastrointestinal: soft, positive bowel sounds Neurological: non-focal Psychiatric: normal affect Dx/Plan (1) SBO (small bowel obstruction) Code(s): K56.609 - UNSP INTESTNL OBST, UNSP TO PARTIAL VERSUS COMPLETE OBST Status: Acute Comment: Improving, tolerating diet. (2) MOOK (acute kidney injury) Code(s): N17.9 - ACUTE KIDNEY FAILURE, UNSPECIFIED Status: Acute Comment: stable (3) Hyperkalemia Code(s): E87.5 - HYPERKALEMIA Status: Resolved (4) Pancreatitis Code(s): K85.90 - ACUTE PANCREATITIS WITHOUT NECROSIS OR INFECTION, UNSP Status: Resolved Qualifiers: Chronicity: acute - Plan * . Review of Systems - Review of Systems Cardiovascular: negative: chest pain, palpitations, orthopnea, paroxysmal nocturnal dyspnea, edema, light headedness Gastrointestinal: negative: Nausea, Vomiting, Abdominal Pain, Diarrhea, Constipation, Melena, Hematochezia - Medications/Allergies Allergies/Adverse Reactions: Allergies Allergy/AdvReac Type Severity Reaction Status Date / Time No Known Drug Allergies Allergy Verified 08/19/17 23:42 Medications: Current Medications Acetaminophen (Tylenol) 650 mg [place] Q4H PRN PRN Reason: Headache/Fever/Mild Pain (1-3) Hydrocodone Bitart/Acetaminophen ([place] 5/325) 1 tab PO Q4H PRN PRN Reason: Pain Last Admin: 04/10/18 10:08 Dose: 1 tab Alteplase, Recombinant (Cathflo) 2 mg CATH ASDIR [facility] Last Admin: 04/07/18 20:30 Dose: 2 mg Aripiprazole (Abilify) 10 mg PO DAILY [facility] Last Admin: 04/12/18 08:40 Dose: 10 mg Bisacodyl (Dulcolax) 10 mg PO BID [facility] Last Admin: 04/12/18 08:43 Dose: 10 mg Carvedilol (Coreg) 25 mg PO BID [facility] Last Admin: 04/12/18 08:43 Dose: 25 mg Clonidine (Catapres) 0.3 mg PO BID [facility] Last Admin: 04/12/18 08:39 Dose: 0.3 mg Clonidine (Catapres) 0.1 mg PO Q4H PRN PRN Reason: Systolic BP > 180 Dextrose/Water (Dextrose 50%) 25 gm SLOW IVP PRN PRN PRN Reason: Hypoglycemia Last Admin: 03/19/18 13:35 Dose: 12.5 gm Doxepin HCl (Sinequan) 100 mg PO HS [facility] Last Admin: 04/11/18 20:23 Dose: 100 mg Enoxaparin Sodium (Lovenox) 40 mg SC 0900 [facility] Last Admin: 04/12/18 08:43 Dose: 40 mg Fluoxetine HCl (Prozac) 40 mg PO DAILY [facility] Last Admin: 04/12/18 08:41 Dose: 40 mg Gabapentin (Neurontin) 300 mg PO BID [facility] Last Admin: 04/12/18 08:42 Dose: 300 mg Glucagon (Glucagon) 1 mg IM PRN PRN PRN Reason: Hypoglycemia Hydralazine HCl (Apresoline) 10 mg SLOW IVP Q2H PRN PRN Reason: SBP > 180 and HR < 70 Last Admin: 03/30/18 14:08 Dose: 10 mg Hydralazine HCl (Apresoline) 100 mg PO TID [facility] Last Admin: 04/12/18 16:42 Dose: Not Given Dextrose/Water (D5w) 1,000 mls @ 0 mls/hr IV .Q0M PRN PRN Reason: Hypoglycemia Sodium Acetate 40 meq/ Sodium Chloride 30 meq/ Sodium Phosphate 30 mmol/ Calcium Gluconate 10 meq/ Magnesium Sulfate 10 meq/ Multivitamins 10 ml/ Chromium/Copper/Manganese/Seleni/Zn 5 ml/ Fat Emulsion Intravenous 200 ml/ Dextrose/Water/ Sterile Water/Amino Acids 1,776.7021 mls @ 74.029 mls/hr IV 2200 [facility] Last Admin: 04/11/18 22:41 Dose: 1,776.7021 mls Insulin Human Lispro (Humalog) 0 units SC .MILD SLIDING SCALE PRN PRN Reason: Mild Correctional Scale Last Admin: 04/12/18 16:52 Dose: 2 unit Labetalol HCl (Normodyne) 10 mg SLOW IVP Q4H PRN PRN Reason: SBP Greater Than 180 Last Admin: 03/30/18 12:37 Dose: 10 ml Losartan Potassium (Cozaar) 100 mg PO DAILY [facility] Last Admin: 04/12/18 08:40 Dose: 100 mg Lubiprostone (Amitiza) 24 mcg PO BID[facility] Last Admin: 04/12/18 16:43 Dose: 24 mcg Miscellaneous Medication (Pharmacy To Dose) 1 each IVPB PRN PRN PRN Reason: Pharmacy to dose Morphine Sulfate (Morphine) 2 mg SLOW IVP Q4H PRN PRN Reason: Severe Pain (7-10) Last Admin: 04/12/18 16:48 Dose: 2 mg Nifedipine (Procardia Xl) 60 mg PO DAILY [facility] Last Admin: 04/12/18 08:40 Dose: 60 mg Ondansetron HCl (Zofran Odt) 4 mg PO Q6H PRN PRN Reason: Nausea/Vomiting Last Admin: 04/01/18 15:49 Dose: 4 mg Ondansetron HCl (Zofran) 4 mg IVP Q4H PRN PRN Reason: Nausea/Vomiting Last Admin: 04/12/18 09:27 Dose: 4 mg Pantoprazole Sodium (Protonix) 40 mg PO DAILY [facility] Last Admin: 04/12/18 08:40 Dose: 40 mg Polyethylene Glycol (Miralax) 17 gm PO DAILY [facility] Last Admin: 04/12/18 08:43 Dose: 17 gm Quetiapine Fumarate (Seroquel) 400 mg PO HS [facility] Last Admin: 04/11/18 20:24 Dose: 400 mg Sodium Chloride (Flush - Normal Saline) 10 ml IVF Q12HR [facility] Last Admin: 04/12/18 08:45 Dose: 10 ml Sodium Chloride (Flush - Normal Saline) 10 ml IVF PRN PRN PRN Reason: Saline Flush Last Admin: 04/10/18 08:43 Dose: 10 ml Tramadol HCl (Ultram) 50 mg PO Q6H PRN PRN Reason: Mild Pain (1-3) Tramadol HCl (Ultram) 100 mg PO Q6H PRN PRN Reason: Moderate Pain (4-6) Last Admin: 04/12/18 12:55 Dose: 100 mg
[2018-04-12] MEDS: Doxepin HCl 25 MG CAP PO SCH (21:14)
[2018-04-12] MEDS: INSULIN REGULAR IV SCH (22:39)
[2018-04-12] MEDS: MULTIVITAMINS IV SCH (22:39)
[2018-04-12] MEDS: [UNRECOGNIZED DRUG - OTHER] IV SCH (22:39)
[2018-04-12] MEDS: MULTITRACE IV SCH (22:39)
--- NOTE | 2018-04-13 00:24 | PRG ---
DATE OF SERVICE: 04/12/2018 SUBJECTIVE: Ms. Mosqueda sitting up in big chair. She reports having pain when she tries to eat regular food. There is some nausea, but no vomiting. She is having bowel movements, twice today. She is still on TPN. OBJECTIVE: VITAL SIGNS: Temperature is 98.3, blood pressure 118/76, and pulse of 92. GENERAL: She is alert, conversant, in no distress. HEENT: Shows anicteric sclerae. Oropharynx is clear. CV: Shows normal S1 and S2. Regular rate and rhythm. CHEST: Shows breath sounds. ABDOMEN: Protuberant, but soft. No distention. No significant tenderness. No guarding or rebound. She has active bowel sounds. EXTREMITIES: Shows no edema. LABORATORY DATA: WBCs 4.3, hemoglobin 11.1, hematocrit 33, platelet count of 298. Electrolytes are within normal range. Creatinine 1.35. ASSESSMENT: 1. Abdominal pain, multifactorial. The patient has underlying chronic abdominal pain. Currently, exam is benign. Small bowel obstruction is no longer an issue. Pancreatitis is resolving with normalization of lipase. 2. Acute pancreatitis, resolved. 3. Small bowel obstruction, resolved. 4. Crohn disease, in remission with Remicade. 5. Hypertension/diabetes. 6. History of mental status change and psychosis from medication withdrawal, resolved. RECOMMENDATIONS: 1. We will decrease and wean off TPN. 2. The patient can have food from home. 3. Transition to p.o. [place] and tramadol for pain. 4. Hopefully, we can get the patient discharged to home in 1 to 2 days. Job ID: [id number]
[2018-04-13] MEDS: traMADol HCl 50 MG TAB PO PRN ×3 (04:28→20:32)
[2018-04-13] MEDS: Ondansetron PF 4 MG/2 ML Vial IVP PRN ×2 (04:34→09:01)
[2018-04-13] MEDS: HumaLOG 300 UNITS/3 ML VIAL SC PRN ×2 (04:38→11:37)
[2018-04-13] MEDS: Morphine 4 MG/ML VIAL SLOW IVP PRN ×3 (06:43→22:53)
[2018-04-13 08:54] LABS: #Eosinphils 0.1 thou/uL (0.0-0.7); #Lymphocytes 1.9 thou/uL (1.20-3.40); #Monocytes 0.5 thou/uL (0.11-0.59); #Neutrophils 2.6 thou/uL (1.40-6.50); %Basophils 0.8 % (0.0-1.0); %Eosinophils 2.9 % (0.0-10.0); %Lymphocytes 36.4 % (21.0-51.0); %Monocytes 10.2 % (0.0-10.0); %Neutrophils 49.8 % (42.0-75.0); Hemoglobin 11.9 g/dL (12.0-16.0); Mean Corpuscular HGB CONC 32.8 g/dL (32.0-36.0); Mean Corpuscular Hemoglobin 31.7 pg (27.0-31.0); Mean Corpuscular Volume 96.6 fL (78.0-98.0); Platelet Count 307 thou/uL (130-400); RBC Distribution Width 13.5 % (11.5-14.5); Red Blood Cell (RBC) Count 3.75 mill/uL (4.20-5.40); White Blood Cell (WBC) Count 5.1 thou/uL (4.8-10.8)
[2018-04-13] MEDS: Lubiprostone 24 MCG CAP PO SCH ×2 (09:00→16:42)
[2018-04-13] MEDS: Bisacodyl 5 MG TAB PO SCH ×2 (09:00→20:31)
[2018-04-13] MEDS: Enoxaparin Sodium 40 MG/0.4 ML SYRINGE SC SCH (09:01)
[2018-04-13] MEDS: Polyethylene Glycol 3350 17 GM Packet PO SCH (09:01)
[2018-04-13] MEDS: FLUoxetine HCl 20 MG CAP PO SCH (09:01)
[2018-04-13] MEDS: Carvedilol 25 MG TAB PO SCH ×2 (09:02→20:32)
[2018-04-13] MEDS: Gabapentin 300 MG CAP PO SCH ×2 (09:02→20:32)
[2018-04-13] MEDS: Losartan 25 MG TAB PO SCH (09:02)
[2018-04-13] MEDS: NIFEdipine XL 60 MG TAB PO SCH (09:02)
[2018-04-13] MEDS: Aripiprazole 10 MG TAB PO SCH (09:02)
[2018-04-13] MEDS: cloNIDine 0.1 MG TAB PO SCH ×2 (09:02→20:31)
[2018-04-13] MEDS: hydrALAZINE 25 MG TAB PO SCH ×3 (09:09→20:32)
[2018-04-13 09:18] LABS: Anion Gap 15 mmol/L (10-20); BUN (Urea Nitrogen) 15 mg/dL (9.8-20.1); Calc. Creatinine Clearance 71 mL/min (70-130); Calcium 8.8 mg/dL (7.8-10.44); Carbon Dioxide 21 mmol/L (23-31); Chloride 106 mmol/L (98-107); Estimated GFR-MDRD 54; Glucose 163 mg/dL (80-115); Potassium 3.9 mmol/L (3.5-5.1); Sodium 138 mmol/L (136-145)
--- NOTE | 2018-04-13 14:02 | PDOC.PN ---
- Subjective Encounter Start Date: 04/13/18 Encounter Start Time: 08:00 Pt seen for followup re: SBO. Feels better, having BMs. - Objective Resuscitation Status - Order Detail: 03/18/18 11:30 Resuscitation Status Routine Co-Sign Provider: Resuscitation Status: FULL: Full Resuscitation Discussed with: patient and MAR Reviewed: Yes Vital Signs & Weight: Vital Signs (12 hours) Temp Pulse Resp BP BP Pulse Ox 04/13/18 09:09 92 118/76 04/13/18 09:02 92 118/76 04/13/18 08:00 94 L 04/13/18 07:25 98.6 F 92 16 120/81 94 L Weight Admit Weight 209 lb 2 oz Weight 209 lb 2 oz Most Recent Monitor Data Heart Rate from ECG 87 NIBP 135/75 NIBP BP-Mean 95 Respiration from ECG 18 SpO2 95 I&O: 04/12/18 04/13/18 04/14/18 06:59 06:59 06:59 Intake Total 1128 1184 Balance 1128 1184 Result Diagrams: 04/14/18 09:11 04/14/18 09:11 Additional Labs: Accuchecks 04/13/18 04/13/18 04/12/18 11:18 04:32 19:41 POC Glucose 205 H 164 H 193 H 04/12/18 16:52 POC Glucose 196 H Labs reviewed by me Phys Exam - Physical Examination Obese HEENT: moist MMs Neck: supple Respiratory: clear to auscultation bilateral Cardiovascular: RRR Gastrointestinal: soft, non-tender, positive bowel sounds Neurological: moves all 4 limbs Psychiatric: normal affect Dx/Plan (1) SBO (small bowel obstruction) Code(s): K56.609 - UNSP INTESTNL OBST, UNSP TO PARTIAL VERSUS COMPLETE OBST Status: Acute Comment: tolerating diet. (2) MOOK (acute kidney injury) Code(s): N17.9 - ACUTE KIDNEY FAILURE, UNSPECIFIED Status: Acute Comment: creatinine 1.22 today (3) Hyperkalemia Code(s): E87.5 - HYPERKALEMIA Status: Resolved (4) Pancreatitis Code(s): K85.90 - ACUTE PANCREATITIS WITHOUT NECROSIS OR INFECTION, UNSP Status: Resolved Qualifiers: Chronicity: acute - Plan * . Review of Systems - Review of Systems Cardiovascular: chest pain, palpitations, orthopnea, paroxysmal nocturnal dyspnea, edema, light headedness Gastrointestinal: Nausea, Vomiting, Abdominal Pain, Diarrhea, Constipation, Melena, Hematochezia - Medications/Allergies Allergies/Adverse Reactions: Allergies Allergy/AdvReac Type Severity Reaction Status Date / Time No Known Drug Allergies Allergy Verified 08/19/17 23:42 Medications: Current Medications Acetaminophen (Tylenol) 650 mg [place] Q4H PRN PRN Reason: Headache/Fever/Mild Pain (1-3) Hydrocodone Bitart/Acetaminophen ([place] 5/325) 1 tab PO Q4H PRN PRN Reason: Pain Last Admin: 04/10/18 10:08 Dose: 1 tab Alteplase, Recombinant (Cathflo) 2 mg CATH ASDIR [facility] Last Admin: 04/07/18 20:30 Dose: 2 mg Aripiprazole (Abilify) 10 mg PO DAILY [facility] Last Admin: 04/13/18 09:02 Dose: 10 mg Bisacodyl (Dulcolax) 10 mg PO BID [facility] Last Admin: 04/13/18 09:00 Dose: 10 mg Carvedilol (Coreg) 25 mg PO BID [facility] Last Admin: 04/13/18 09:02 Dose: 25 mg Clonidine (Catapres) 0.3 mg PO BID [facility] Last Admin: 04/13/18 09:02 Dose: 0.3 mg Clonidine (Catapres) 0.1 mg PO Q4H PRN PRN Reason: Systolic BP > 180 Dextrose/Water (Dextrose 50%) 25 gm SLOW IVP PRN PRN PRN Reason: Hypoglycemia Last Admin: 03/19/18 13:35 Dose: 12.5 gm Doxepin HCl (Sinequan) 100 mg PO HS [facility] Last Admin: 04/12/18 21:14 Dose: 100 mg Enoxaparin Sodium (Lovenox) 40 mg SC 0900 [facility] Last Admin: 04/13/18 09:01 Dose: 40 mg Fluoxetine HCl (Prozac) 40 mg PO DAILY [facility] Last Admin: 04/13/18 09:01 Dose: 40 mg Gabapentin (Neurontin) 300 mg PO BID [facility] Last Admin: 04/13/18 09:02 Dose: 300 mg Glucagon (Glucagon) 1 mg IM PRN PRN PRN Reason: Hypoglycemia Hydralazine HCl (Apresoline) 10 mg SLOW IVP Q2H PRN PRN Reason: SBP > 180 and HR < 70 Last Admin: 03/30/18 14:08 Dose: 10 mg Hydralazine HCl (Apresoline) 100 mg PO TID [facility] Last Admin: 04/13/18 09:09 Dose: 100 mg Dextrose/Water (D5w) 1,000 mls @ 0 mls/hr IV .Q0M PRN PRN Reason: Hypoglycemia Multivitamins 10 ml/ Chromium/Copper/Manganese/Seleni/Zn 5 ml/ Insulin Human Regular 60 units/ Amino Acids/Electrolytes 2,015.6 mls @ 50 mls/hr IV 2200 [facility] Stop: 04/13/18 21:59 Last Admin: 04/12/18 22:39 Dose: 2,015.6 mls Insulin Human Lispro (Humalog) 0 units SC .MILD SLIDING SCALE PRN PRN Reason: Mild Correctional Scale Last Admin: 04/13/18 11:37 Dose: 2 unit Labetalol HCl (Normodyne) 10 mg SLOW IVP Q4H PRN PRN Reason: SBP Greater Than 180 Last Admin: 03/30/18 12:37 Dose: 10 ml Losartan Potassium (Cozaar) 100 mg PO DAILY [facility] Last Admin: 04/13/18 09:02 Dose: 100 mg Lubiprostone (Amitiza) 24 mcg PO BID[facility] Last Admin: 04/13/18 09:00 Dose: 24 mcg Miscellaneous Medication (Pharmacy To Dose) 1 each IVPB PRN PRN PRN Reason: Pharmacy to dose Morphine Sulfate (Morphine) 2 mg SLOW IVP Q4H PRN PRN Reason: Severe Pain (7-10) Last Admin: 04/13/18 11:41 Dose: 2 mg Nifedipine (Procardia Xl) 60 mg PO DAILY [facility] Last Admin: 04/13/18 09:02 Dose: 60 mg Ondansetron HCl (Zofran Odt) 4 mg PO Q6H PRN PRN Reason: Nausea/Vomiting Last Admin: 04/01/18 15:49 Dose: 4 mg Ondansetron HCl (Zofran) 4 mg IVP Q4H PRN PRN Reason: Nausea/Vomiting Last Admin: 04/13/18 09:01 Dose: 4 mg Pantoprazole Sodium (Protonix) 40 mg PO DAILY [facility] Last Admin: 04/13/18 09:01 Dose: 40 mg Polyethylene Glycol (Miralax) 17 gm PO DAILY [facility] Last Admin: 04/13/18 09:01 Dose: 17 gm Quetiapine Fumarate (Seroquel) 400 mg PO HS [facility] Last Admin: 04/12/18 21:13 Dose: 400 mg Sodium Chloride (Flush - Normal Saline) 10 ml IVF Q12HR [facility] Last Admin: 04/13/18 09:09 Dose: 10 ml Sodium Chloride (Flush - Normal Saline) 10 ml IVF PRN PRN PRN Reason: Saline Flush Last Admin: 04/10/18 08:43 Dose: 10 ml Tramadol HCl (Ultram) 50 mg PO Q6H PRN PRN Reason: Mild Pain (1-3) Last Admin: 04/13/18 09:03 Dose: 50 mg Tramadol HCl (Ultram) 100 mg PO Q6H PRN PRN Reason: Moderate Pain (4-6) Last Admin: 04/13/18 04:28 Dose: 100 mg
[2018-04-13] MEDS ORDERED: Sodium Chloride 0.9% 10 ML ONE (20:16)
[2018-04-13] MEDS: Doxepin HCl 25 MG CAP PO SCH (20:31)
[2018-04-13] MEDS: MULTIVITAMINS IV SCH (21:55)
[2018-04-13] MEDS: MULTITRACE IV SCH (21:55)
[2018-04-13] MEDS: INSULIN REGULAR IV SCH (21:55)
[2018-04-13] MEDS: [UNRECOGNIZED DRUG - OTHER] IV SCH (21:55)
[2018-04-14] MEDS: traMADol HCl 50 MG TAB PO PRN (05:04)
[2018-04-14] MEDS: Lubiprostone 24 MCG CAP PO SCH ×2 (08:39→16:48)
[2018-04-14] MEDS: Aripiprazole 10 MG TAB PO SCH (08:40)
[2018-04-14] MEDS: Bisacodyl 5 MG TAB PO SCH (08:40)
[2018-04-14] MEDS: Carvedilol 25 MG TAB PO SCH (08:43)
[2018-04-14] MEDS: cloNIDine 0.1 MG TAB PO SCH (08:44)
[2018-04-14] MEDS: Enoxaparin Sodium 40 MG/0.4 ML SYRINGE SC SCH (08:45)
[2018-04-14] MEDS: FLUoxetine HCl 20 MG CAP PO SCH (08:46)
[2018-04-14] MEDS: Gabapentin 300 MG CAP PO SCH (08:47)
[2018-04-14] MEDS: hydrALAZINE 25 MG TAB PO SCH ×2 (08:47→16:49)
[2018-04-14] MEDS: Losartan 25 MG TAB PO SCH (08:49)
[2018-04-14] MEDS: NIFEdipine XL 60 MG TAB PO SCH (08:52)
[2018-04-14] MEDS: Polyethylene Glycol 3350 17 GM Packet PO SCH (08:53)
--- NOTE | 2018-04-14 09:10 | PRG ---
DATE OF SERVICE: 04/13/2018 SUBJECTIVE: Ms. Mosqueda . She is feeling better and having bowel movements, but reports she is not eating much. MEDICATIONS: Includin. P.r.n. Tylenol. 2. . 3. Cathflo. 4. Abilify. 5. Dulcolax. 6. Coreg. 7. Catapres p.r.n. 8. Doxepin. 9. Lovenox subcu. 10. Prozac. 11. Gabapentin p.r.n. 12. Hydralazine. 13. Cozaar 100 mg p.o. daily. 14. Amitiza 24 mcg p.o. b.i.d. 15. . 16. Protonix. 17. MiraLAX q.p.m. 18. Losartan. 19. Morphine. 20. . PHYSICAL EXAMINATION: VITAL SIGNS: T-max , pulse 91, blood pressure 136/84. LUNGS: Clear. ABDOMEN: Nontender. LABORATORY DATA: White blood cell count 5.1, hemoglobin 10.9, platelet count 307. Last CAT scan on 04/06, ASSESSMENT: 1. Partial small bowel obstruction, resolved, previous anastomosis site. 2. Acute pancreatitis, resolved. 3. Crohn disease, in remission. 4. Hypertension, diabetes . 5. Bipolar disorder. 6. Multifactorial, chronic abdominal pain. RECOMMENDATIONS: Stop IV narcotics . Recommendations discussed with family members. Job ID: [id number]
[2018-04-14 09:48] LABS: #Eosinphils 0.2 thou/uL (0.0-0.7); #Lymphocytes 1.8 thou/uL (1.20-3.40); #Monocytes 0.6 thou/uL (0.11-0.59); #Neutrophils 2.8 thou/uL (1.40-6.50); %Basophils 0.5 % (0.0-1.0); %Eosinophils 3.1 % (0.0-10.0); %Lymphocytes 34.2 % (21.0-51.0); %Monocytes 10.4 % (0.0-10.0); %Neutrophils 51.9 % (42.0-75.0); Hemoglobin 11.9 g/dL (12.0-16.0); Mean Corpuscular HGB CONC 32.8 g/dL (32.0-36.0); Mean Corpuscular Hemoglobin 31.7 pg (27.0-31.0); Mean Corpuscular Volume 96.8 fL (78.0-98.0); Platelet Count 319 thou/uL (130-400); RBC Distribution Width 13.8 % (11.5-14.5); Red Blood Cell (RBC) Count 3.75 mill/uL (4.20-5.40); White Blood Cell (WBC) Count 5.4 thou/uL (4.8-10.8)
[2018-04-14 09:51] LABS: INR-International Normal Ratio 1.1; PTT 45.1 SEC (22.9-36.1); Prothrombin Time 13.9 SEC (12.0-14.7)
[2018-04-14 10:10] LABS: ALT (SGPT) 10 U/L (8-55); AST (SGOT) 14 U/L (5-34); Albumin 3.4 g/dL (3.4-4.8); Alkaline Phosphatase 185 U/L (40-150); Anion Gap 14 mmol/L (10-20); BUN (Urea Nitrogen) 17 mg/dL (9.8-20.1); Bilirubin, Total 0.3 mg/dL (0.2-1.2); Calc. Creatinine Clearance 70 mL/min (70-130); Calcium 9.1 mg/dL (7.8-10.44); Carbon Dioxide 21 mmol/L (23-31); Cardiac Risk 6.5 (Less than 4.5); Chloride 105 mmol/L (98-107); Cholesterol 176 mg/dl (< 200 Desired); Estimated GFR-MDRD 53; Globulin 3.9 g/dL (2.4-3.5); Glucose 168 mg/dL (80-115); HDL Cholesterol 27 mg/dL (>60 Neg Risk); LDL Cholesterol, Calculated 98 mg/dL; Magnesium 1.6 mg/dL (1.6-2.6); Phosphorus 3.3 mg/dL (2.3-4.7); Protein, Total 7.3 g/dL (6.0-8.3); Sodium 136 mmol/L (136-145); Triglycerides 257 mg/dL (Less than 150)
[2018-04-14] MEDS: HumaLOG 300 UNITS/3 ML VIAL SC PRN (12:37)
[2018-04-14] MEDS: Morphine 4 MG/ML VIAL SLOW IVP PRN (15:26)
[2018-04-14] MEDS: Ondansetron ODT 4 MG TAB PO PRN (15:26)
[2018-04-14 16:51] VITALS: BP 110/74
--- NOTE | 2018-04-14 16:55 | PRG ---
DATE OF SERVICE: 04/14/2018 SUBJECTIVE: The patient feels about the same, complaining of having abdominal pain. There is no nausea or vomiting. She is off the TPN. OBJECTIVE: VITAL SIGNS: Temperature 98.4, blood pressure 123/83, pulse of 84. GENERAL: She is alert, sitting up in big chair. No distress. HEENT: Shows anicteric sclerae. NECK: Supple. CV: Shows normal S1, S2. Regular rate and rhythm. CHEST: Shows breath sounds. ABDOMEN: Protuberant, but no distention. No tenderness. She has active bowel sounds. EXTREMITIES: Does not show any edema. LABORATORY DATA: WBCs 5.4, hemoglobin 11.9, and platelet count of 319. Electrolytes within normal range. Creatinine 1.24, bilirubin is 0.3, AST 14, ALT 10, alkaline phosphatase 183. ASSESSMENT: 1. Abdominal pain, multifactorial. I suspect that she is at her baseline for chronic abdominal pain. Examination is certainly benign. 2. Acute pancreatitis, resolved. 3. History of small-bowel obstruction, transition zone in the distal bowel seen on both small-bowel series and CT enterography, but certainly not obstructive. 4. Crohn disease, in remission with Remicade. 5. Hypertension/diabetes. 6. History of mental status change and psychosis from medication withdrawal earlier this admission, resolved. RECOMMENDATIONS: 1. The patient can be discharged to home. 2. Will resume Remicade infusion every 8 weeks as outpatient. 3. Continue with Amitiza 24 mcg b.i.d. and MiraLAX 17 g daily for her chronic constipation, may add Dulcolax 10 mg p.o. daily to b.i.d. as needed. 4. Follow up with me in 2 to 3 weeks. Job ID: [id number]
[2018-04-14 17:04] VITALS: TEMP 98
--- NOTE | 2018-04-14 21:23 | DIS ---
DATE OF ADMISSION: 03/18/2018 DATE OF DISCHARGE: 04/14/2018 PRIMARY CARE PROVIDER: Crys Andrade MD DISCHARGE DIAGNOSES: 1. Acute pancreatitis. 2. Acute metabolic encephalopathy. 3. Psychosis. 4. Aspiration pneumonitis. 5. Acute kidney injury. 6. Hyperkalemia. 7. Small bowel obstruction. CONDITION OF PATIENT ON THE DAY OF DISCHARGE: Stable. I assessed Ms. Mosqueda on the day of discharge. She denies any chest pain or shortness of breath. Vital signs are stable. S1 and S2 are heard, regular. Lungs are clear to auscultation bilaterally. CONSULTATIONS DURING THIS HOSPITALIZATION: 1. Gastroenterology, Dr. Mansfield. 2. Pulmonology, Michele Burkett MD. 3. Neurology, Dr. Echols. 4. General Surgery, Dr. Jb Wilkinson MD. DISCHARGE MEDICATIONS: 1. ProAir HFA p.r.n. 2. Vitamin C 500 mg daily. 3. Lipitor 40 mg daily. 4. Tessalon p.r.n. 5. Brexpiprazole 2 mg daily. 6. Symbicort one puff 2 times a day as needed. 7. Calcitriol 0.25 mcg 2 times a day. 8. Clonidine 0.3 mg 2 times a day. 9. Farxiga 5 mg daily. 10. Dexilant 30 mg daily. 11. Doxepin 100 mg at bedtime. 12. Gabapentin 300 mg 2 times a day. 13. Hydralazine 100 mg 3 times a day. 14. Infliximab as recommended by her physician. 15. Lidocaine 5% ointment p.r.n. 16. Losartan 100 mg daily. 17. Amitiza 24 mcg 2 times a day. 18. Nifedipine 60 mg daily. 19. Potassium chloride 10 mEq 2 times a day. 20. Seroquel 200 mg at bedtime as needed. 21. Torsemide 100 mg daily. 22. Coreg 25 mg 2 times a day. 23. Prozac 40 mg daily. 24. Levemir 8 units two times a day, dose decreased till patient's oral intake improves. 25. MiraLAX 17 g daily. HOSPITAL COURSE: Ms. Mosqueda is a pleasant 62-year-old lady, who was admitted to [facility] on March 18, 2018, for acute pancreatitis. Please refer to Krystina Cristobal's history and physical note dated March 18, 2018, for further details. She was admitted to the hospital and seen by Gastroenterology Service. On March 19, she was found to have altered mental status. Noncontrast CT scan of the brain was unremarkable. She was transferred to the Critical Care Unit for further management. She was seen by Neurology and Pulmonary and Critical Care Medicine Services. Repeat CT scan of the brain on March 20, 2018, was unremarkable as well. She was restarted on her psychotropic medications. She continued to have fluctuating level of consciousness. Chest x-ray done on March 30 also showed right lower lobe infiltrates. She was treated with antibiotics. On March 18, 2012, she had abdominal x-rays for distention and abdominal pain. It was suggestive of ileus or small bowel obstruction. CT scan of the abdomen and pelvis suggested mechanical small-bowel obstruction. Abdominal x-rays on March 30 showed persistent small bowel obstruction. She was started on TPN. Followup serial abdominal x-rays showed continued decompression of bowel loops. Abdominal x-rays on April 08 showed no obstructive bowel gas pattern. Her diet was slowly advanced. She was weaned off TPN. She is being discharged home in a stable condition. On the day of discharge, she has white count 5400, hemoglobin 11.9, platelet count 319,000. Sodium 136, potassium 4.0, and creatinine 1.24. Her total bilirubin is 0.3, AST 14, ALT 10, alkaline phosphatase 185, triglycerides 257, cholesterol 176, LDL cholesterol 98, and HDL cholesterol 27. Many thanks for allowing me to participate in your patient's care. Please feel free to contact me with any questions or concerns. Blood cultures and urine culture done during this hospitalization were negative. DISCHARGE DESTINATION: Home. TIME SPENT: Total amount of time spent coordinating this discharge: 33 minutes. Job ID: [id number]
== END 2018-04-14 17:40 | disposition home or self-care (01) | DRG 438 ==
LOC: ERS 07:04 → 2SW 10:58 → OBSVTOIN 10:58 → ONC 03-19 13:26 → IMCU/EMU 03-20 20:15 → CCU 03-20 21:50 → T4-A 03-24 16:46
PROVIDERS: ADMIT Internal Medicine; ATTEND Internal Medicine
PROC: 0DH67UZ Insertion of Feeding Device into Stomach, Via Natural or Artificial Opening (ICD-10-PCS; principal; 2018-03-18)
DX: K85.00 Idiopathic acute pancreatitis without necrosis or infection (principal); G93.41 Metabolic encephalopathy; J69.0 Pneumonitis due to inhalation of food and vomit; K50.90 Crohn's disease, unspecified, without complications; N17.9 Acute kidney failure, unspecified; I13.0 Hypertensive heart and chronic kidney disease with heart failure and stage 1 through stage 4 chronic kidney disease, or unspecified chronic kidney disease; I50.32 Chronic diastolic (congestive) heart failure; K56.600 Partial intestinal obstruction, unspecified as to cause; F31.9 Bipolar disorder, unspecified; N18.3 Chronic kidney disease, stage 3 (moderate); K21.9 Gastro-esophageal reflux disease without esophagitis; G47.33 Obstructive sleep apnea (adult) (pediatric); F17.210 Nicotine dependence, cigarettes, uncomplicated; Z79.899 Other long term (current) drug therapy; F19.959 Other psychoactive substance use, unspecified with psychoactive substance-induced psychotic disorder, unspecified; I25.10 Atherosclerotic heart disease of native coronary artery without angina pectoris; E11.22 Type 2 diabetes mellitus with diabetic chronic kidney disease; E87.5 Hyperkalemia; E16.4 Increased secretion of gastrin; E87.6 Hypokalemia; E66.9 Obesity, unspecified; Z68.38 Body mass index [BMI] 38.0-38.9, adult
CPT/HCPCS: 36415; 36416; 70450; 71045; 74018; 74019; 74177; 74178; 74250; 76705; 80048; 80053; 80061; 81003; 82140; 82310; 82550; 82728; 82805; 83540; 83550; 83690; 83735; 84100; 84134; 84484; 85025; 85610; 85730; 87040; 87086; 93005; 94640; 96361; 96374; 96375; A4216; A4217; C9113; J0360; J1642; J1650; J1815; J2270; J2310; J2405; J2543; J2997; J3010; J3475; J3480; J3486; J7050; J7611; Q0162; Q0163; Q5103; Q9963; Q9967

== ENCOUNTER 2018-04-26 10:39 | Day surgery (SDC) | payer OTHER ==
[~2018-04-26 10:39] MED LIST changes: -Dexamethasone 20 MG/5 ML VIAL ONE; +INFLIXIMAB DYYB IV SCH; -Lidocaine 1% PF 5 ML VIAL ONE; -PROPOFOL 200 MG/20 ML VIAL ONE; +SODIUM CHLORIDE 0.9% IV SCH
[2018-04-26] MEDS ORDERED: Sodium Chloride 0.9% 20 ML ONE (11:06)
[2018-04-26] MEDS ORDERED: Acetaminophen 500 MG TAB PO SCH (11:15)
[2018-04-26] MEDS ORDERED: diphenhydrAMINE 25 MG CAP PO SCH (11:15)
[2018-04-26 12:44] VITALS: BP 147/93; TEMP 98.4
== END 2018-04-26 13:59 | disposition home or self-care (01) ==
LOC: ONC/OP 10:39
PROVIDERS: ATTEND Internal Medicine Gastroenterology
DX: K50.10 Crohn's disease of large intestine without complications (principal)
CPT/HCPCS: 96413; 96415; J1642; J7050; Q0163; Q5103

== ENCOUNTER 2018-05-11 09:29 | Outpatient (CLI) | payer OTHER ==
--- NOTE | 2018-05-11 10:28 | RAD ---
SINGLE VIEW ABDOMEN: HISTORY: Abdominal pain for a month. Crohn's disease. COMPARISON: 04/08/2018 FINDINGS: A single view of the abdomen shows a nonspecific, nonobstructed bowel gas pattern. Air is seen throu ghout the colon. There is mild stool retention in the right colon. Cholecystectomy clips are seen. IMPRESSION: Nonobstructed bowel gas pattern. POS: [facility]
== END 2018-05-11 09:30 | disposition home or self-care (01) ==
LOC: BICRAD 09:29
PROVIDERS: ATTEND Internal Medicine Gastroenterology
DX: K50.90 Crohn's disease, unspecified, without complications (principal); K56.609 Unspecified intestinal obstruction, unspecified as to partial versus complete obstruction; K59.00 Constipation, unspecified
CPT/HCPCS: 74018

== ENCOUNTER 2018-05-18 16:04 | Emergency (ER) | payer OTHER ==
[2018-05-18] MEDS ORDERED: Ketorolac Tromethamine 30 MG/ML VIAL ONE (18:18)
--- NOTE | 2018-05-18 18:28 | RAD ---
PELVIC AP STANDARD 05/18/18 HISTORY: Fall. COMPARISON: None. FINDINGS: No acute fracture is appreciated. Obturator rings are intact. There are phleboliths in the pelvis. Moderate degenerative disease both SI joints. IMPRESSION: No acute displaced fracture. POS: [facility]
== END 2018-05-18 18:50 | disposition home or self-care (01) ==
LOC: ERS 16:04
DX: M54.5 Low back pain (principal); I10 Essential (primary) hypertension; E11.9 Type 2 diabetes mellitus without complications; G47.30 Sleep apnea, unspecified; K21.9 Gastro-esophageal reflux disease without esophagitis; J44.9 Chronic obstructive pulmonary disease, unspecified; F41.9 Anxiety disorder, unspecified; F31.9 Bipolar disorder, unspecified; F17.210 Nicotine dependence, cigarettes, uncomplicated; W19.XXXA Unspecified fall, initial encounter
CPT/HCPCS: 72170; 96372; J1885

== ENCOUNTER 2018-05-19 17:05 | Emergency (ER) | payer OTHER ==
[2018-05-19 17:44] LABS: Bilirubin Negative (Negative); Blood, Urine Large (Negative); Clarity CLOUDY (Clear); Glucose, Urine (Dipstick) 250 mg/dL (Negative); Leukocyte Large (Negative); Nitrite Negative (Negative); Protein, Urine (Dipstick) 100 mg/dL (Neg-Trace); Specific Gravity, Urine 1.014 (1.002-1.036); pH, Urine 6.5 (5.0-9.0)
[2018-05-19 17:45] LABS: Hyaline Casts/LPF 0-3 HYALINE CAST LPF (0-3 Hyaline); RBC/HPF GREATER THAN 50-TNTC HPF (0-3); WBC/HPF 21-50 HPF (0-3); Yeast-AUWi Flag 15.1 (0-25.0)
[2018-05-19 17:48] LABS: Bacteria/HPF 2+ HPF (None Seen); Renal Epithelial None Seen HPF (0-3)
[2018-05-19] MEDS ORDERED: Phenazopyridine HCl 97.5 MG TABLET ONE (18:22)
[2018-05-19] MEDS ORDERED: Nitrazine Tape 1 ROLL ONE (18:22)
[2018-05-19] MEDS ORDERED: Phenazopyridine HCl 97.5 MG TABLET PO SCH (18:30)
== END 2018-05-19 18:29 | disposition home or self-care (01) ==
LOC: ERS 17:05
DX: N30.91 Cystitis, unspecified with hematuria (principal); I10 Essential (primary) hypertension; E11.9 Type 2 diabetes mellitus without complications; J44.9 Chronic obstructive pulmonary disease, unspecified; F17.210 Nicotine dependence, cigarettes, uncomplicated
CPT/HCPCS: 36416; 51701; 81003; 81015; 87077; 87086; 87186

== ENCOUNTER 2018-06-04 16:21 | Inpatient (IN) | payer OTHER ==
[2018-06-04] MEDS ORDERED: cefTRIAXone\\ROCEPHIN 1 GM VIAL ONE ×2 (17:12→17:13)
[2018-06-04 17:33] LABS: #Eosinphils 0.2 thou/uL (0.0-0.7); #Lymphocytes 1.9 thou/uL (1.20-3.40); #Monocytes 0.6 thou/uL (0.11-0.59); #Neutrophils 6.5 thou/uL (1.40-6.50); %Basophils 0.3 % (0.0-1.0); %Eosinophils 1.7 % (0.0-10.0); %Lymphocytes 20.5 % (21.0-51.0); %Monocytes 6.7 % (0.0-10.0); %Neutrophils 70.8 % (42.0-75.0); Hemoglobin 12.5 g/dL (12.0-16.0); Mean Corpuscular HGB CONC 33.3 g/dL (32.0-36.0); Mean Corpuscular Hemoglobin 30.4 pg (27.0-31.0); Mean Corpuscular Volume 91.4 fL (78.0-98.0); Mean Platelet Volume 6.8 fL (7.4-10.4); Platelet Count 482 thou/uL (130-400); RBC Distribution Width 14.1 % (11.5-14.5); White Blood Cell (WBC) Count 9.2 thou/uL (4.8-10.8)
--- NOTE | 2018-06-04 17:59 | CT ---
ABDOMEN CT WITHOUT CONTRAST PELVIC CT WITHOUT CONTRAST: COMPARISON: 04/06/2018. HISTORY: Abdominal pain, x 3 days. FINDINGS: ABDOMEN CT: Lung bases are clear. Normal heart size. Visualized aorta has a normal caliber. No periaortic fat stranding. Gallbladder is surgically absent. Grossly, the liver, spleen, pancreas, and adrenal glands have a normal attenuation. No gastrohepatic, retrocrural, or periportal lymphadenopathy. No mesenteric mass, lymphadenopathy, free air, or free fluid. Interval development of intrinsic hyperdensity within the left upper pole intrarenal collecting syste m as well as the left renal pelvis. There is interval development of intrarenal calculi. The calcifi cation in the left renal pelvis measures approximately 0.9 cm. Additional calcifications in the left upper pole calyces are noted. Overall, there is minimal to mild dilatation. The left ureter is dec ompressed. There is no evidence of right-sided obstructive uropathy. Intrinsic hyperdensity in the right renal cortex likely represents hemorrhagic or complex cyst. No mesenteric mass, lymphadenopathy, free air, or free fluid. Limited evaluation of the alimentary canal by the lack of oral contrast. No evidence of bowel obstru ction. The ileocecal junction is normal. Appendix is surgically absent. The colon is unremarkable. CT PELVIS: Limited evaluation of the urinary bladder due to inadequate distention. No pelvic mass, lymphadenopa thy, free air, or free fluid. Anastomosis in the sigmoid colon is noted and uncomplicated. No lytic or blastic lesions in the osseous structures. IMPRESSION: Minimal to mild left-sided obstructive uropathy secondary to calcification in the left renal pelvis. Additional calcifications are noted in the left upper pole calyces. POS: [facility]
--- NOTE | 2018-06-04 18:18 | RAD ---
CHEST ONE VIEW: 06/04/18 HISTORY: Pain. COMPARISON: 03/20/18. FINDINGS: Stable right sided Mediport catheter. Normal cardiac silhouette. The lungs and pleural spaces are spencer ar. No pneumothorax or osseous abnormality. IMPRESSION: No acute cardiopulmonary process. POS: [facility]
[2018-06-04 18:46] LABS: Bilirubin Small (Negative); Blood, Urine Large (Negative); Clarity TURBID (Clear); Glucose, Urine (Dipstick) 100 mg/dL (Negative); Leukocyte Large (Negative); Nitrite Negative (Negative); Protein, Urine (Dipstick) 30 mg/dL (Neg-Trace); Specific Gravity, Urine 1.019 (1.002-1.036)
[2018-06-04 18:47] LABS: Bacteria/HPF 1+ HPF (None Seen); Hyaline Casts/LPF 0-3 HYALINE CAST LPF (0-3 Hyaline); Pathc Cast-AUWi Flag 0.62 (0-2.49); RBC/HPF GREATER THAN 50-TNTC HPF (0-3); Squamous Epithelial 0-3 HPF (0-3)
[2018-06-04 19:04] LABS: ALT (SGPT) 8 U/L (8-55); AST (SGOT) 18 U/L (5-34); Albumin 3.3 g/dL (3.4-4.8); Alkaline Phosphatase 157 U/L (40-150); Anion Gap 21 mmol/L (10-20); BUN (Urea Nitrogen) 46 mg/dL (9.8-20.1); Bilirubin, Total 0.3 mg/dL (0.2-1.2); Calc. Creatinine Clearance 0 mL/min (70-130); Calcium 9.6 mg/dL (7.8-10.44); Carbon Dioxide 19 mmol/L (23-31); Chloride 101 mmol/L (98-107); Estimated GFR-MDRD 16; Globulin 5.3 g/dL (2.4-3.5); Glucose 97 mg/dL (80-115); Potassium 4.9 mmol/L (3.5-5.1); Protein, Total 8.6 g/dL (6.0-8.3); Sodium 136 mmol/L (136-145)
[2018-06-04] MEDS ORDERED: Sodium Chloride 0.9% 1,000 ML IV SCH (21:27)
[2018-06-04 21:44] VITALS: BMI 34.2
[2018-06-04] MEDS ORDERED: Zolpidem Tartrate 5 MG TAB PO PRN (21:55)
[2018-06-04] MEDS ORDERED: Ondansetron PF 4 MG/2 ML Vial IVP PRN (21:55)
[2018-06-04] MEDS ORDERED: Benzonatate 100 MG CAP PO PRN (21:58)
--- NOTE | 2018-06-04 22:22 | PDOC.EVN ---
Event Note - Event Note Event Note: H&P [id number]
--- NOTE | 2018-06-04 22:43 | HP ---
CHIEF COMPLAINT: Abdominal pain. HISTORY OF PRESENT ILLNESS: This is a 62-year-old female presenting to the ER with abdominal pain. The patient states the pain started approximately last night early on to this morning. The patient comes to the hospital with this complaint. States that the pain got worse actually over night to this morning. The pain has been going on for about 2 to 3 weeks. The patient of note was found to have mild obstruction on the CT scan that was done in the ER with contrast, which showed an obstructive process in the left kidney with left renal calcification. No hydronephrosis was noted. The patient states that she does not have any fevers or chills. Does admit to some abdominal pain. Otherwise, no other alleviating or aggravating factors noted. 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 The patient otherwise denies any other complaints. No nausea, vomiting, diarrhea, constipation, chest pain, fevers, chills, or shortness of breath. The patient is seen and examined in the ER. and daughter at bedside. All questions answered. REVIEW OF SYSTEMS: All systems reviewed. Pertinent positives in HPI, otherwise negative. ALLERGIES: NO KNOWN DRUG ALLERGIES. PAST MEDICAL HISTORY: Positive for hypertension, diabetes mellitus type 2, sleep apnea, Crohn disease, GERD, history of pancreatitis as well as chronic kidney disease stage 3. SOCIAL HISTORY: Nondrinker, nonsmoker. FAMILY HISTORY: Positive for diabetes and hypertension. HOME MEDICATIONS: See MAR. PHYSICAL EXAMINATION: VITAL SIGNS: Blood pressure was 116/80, pulse of 97, respiratory rate of 17, oral temperature was 99, O2 saturation 97% on room air. GENERAL: The patient lying in bed, in no acute discomfort. HEENT: Pupils equal, round, and reactive to light and accommodation. Oral cavity moist and pink. NECK: Supple, mobile, nontender thyroid. PULMONARY: Clear to auscultation bilaterally. No rales, wheezing, rhonchi appreciated. CARDIOVASCULAR: Regular rate and rhythm. S1, S2. No murmurs, rubs, or gallops appreciated. ABDOMEN: Positive bowel sounds. Soft, nontender. Left-sided mild CVA tenderness noted as well as left flank pain on palpation, otherwise no rebound or guarding. EXTREMITIES: 2+ peripheral pulses noted. No cyanosis, clubbing, or edema. NEUROLOGICAL: Cranial nerves 2 through 12 intact. No loss of motor or sensory function. LABORATORY DATA: CBC within normal limits. Basic metabolic panel is normal except for a bicarb of 19, BUN 46, creatinine of 3.5. Urinalysis positive for protein, glucose, ketones, bacteria, leukocyte esterase, white blood cells, and rbc's. ASSESSMENT: 1. Acute kidney injury on chronic kidney disease. 2. Abdominal pain. 3. Urinary tract infection. 4. Hypertension. 5. Diabetes mellitus type 2. 6. Hyperlipidemia. 7. Obesity. 8. Sleep apnea. PLAN: 1. At this point in time, we will place Quevedo in the patient. Admit the patient to Internal Medicine. Consult to Nephrology and Urology. 2. Pain control with [place] and gabapentin. 3. We will start the patient on Rocephin. We will keep the patient as full code per patient's request. Heparin for DVT prophylaxis. We will provide the patient with aspirin, statin, blood-pressure control. Obtain echocardiogram. Trend enzymes. Renal ultrasound. Case and plan discussed with the patient and family at length. She wishes to remain a full code. They understand and agree with this plan. Job ID: [id number]
[2018-06-04] MEDS ORDERED: Gabapentin 300 MG CAP PO SCH (22:45)
[2018-06-04] MEDS: HYDROcodone/Acetaminophen 5/325 mg Tablet PO PRN (22:45)
[2018-06-04] MEDS ORDERED: Carvedilol 25 MG TAB PO SCH (22:45)
[2018-06-04 23:50] LABS: Troponin I Less than 0.010 ng/mL (< 0.028)
--- NOTE | 2018-06-05 02:13 | CON ---
DATE OF CONSULTATION: 06/04/2018 REASON FOR CONSULTATION: Urinary tract infection, kidney stones. HISTORY OF PRESENT ILLNESS: Ms. Mosqueda is a 62-year-old female, who has been followed by Dr. Groves as an outpatient and apparently has a follow up appointment with her on 06/14/18. I think prior urologic evaluation was for renal insufficiency and a right renal lesion subsequently determined to be a benign process. Most recently, urologic history significant for culture positive UTI - proteus on ~ 05/14/18. She presents to the hospital emergency room at this time with "groin pain." States that the pain has been there for a couple of weeks, but seems to be worsening and therefor she presented to the emergency room for further evaluation. In addition, she was seen by her motel keeper today her asked that she go to the ER for worsening renal function. On evaluation in the emergency room, CT scan was performed. This was compared to her CT scan in March of 2018. At that time,she was diagnosed with presumed pancreatitis. The current CT scan demonstrates new findings in the left kidney. She has some hyperdense material in the left renal pelvis and in the upper pole of the left kidney. The density is less than that seen with typical stone disease but is consistent with matrix stone disease. There was no stone seen on CT 04/03. There is also questionable mild left hydronephrosis. No calcification present on CT March 2018. Both ureters are without evidence of calcifications or dilation. She denies any dysuria. She denies any gross hematuria. She denies any fevers or chills. She does have constipation. She denies vomiting, although she has had some mild nausea. PAST MEDICAL HISTORY: Hypertension, diabetes mellitus, Crohn disease, GERD, history of pancreatitis, and chronic renal insufficiency. SOCIAL HISTORY: She denies use of alcohol or smoking. FAMILY HISTORY: Significant for hypertension and diabetes. CHRONIC MEDICATIONS: Please see hospital records. REVIEW OF SYSTEMS: RESPIRATORY: Denies any shortness of breath. CARDIOVASCULAR: Denies chest pain, palpitations. GASTROINTESTINAL: She was diagnosed with pancreatitis in March 2018. She has a history of Crohn disease. She does have problems with constipation. NEUROLOGIC: No history of CVA. PHYSICAL EXAMINATION: GENERAL: She is awake and alert. She is in no distress at this time. She did doze off very easily during the interview. VITAL SIGNS: Temperature 98.5, blood pressure 157/114, O2 saturation 97% on room air, and pulse 101. CHEST: Clear to auscultation. CARDIOVASCULAR: No murmurs auscultated. ABDOMEN: Soft. No peritoneal signs. No CVA tenderness. EXTREMITIES: No edema. LABORATORY DATA: Urinalysis demonstrates 1+ bacteria with too numerous to count red and white cells. Chemistry demonstrates a creatinine of 3.5 (baseline typically around 2). CBC; white count 9.2, hemoglobin 12.5, hematocrit 37.5, and platelets 482. IMPRESSION: Ms. Mosqueda is a 62-year-old with history of urinary tract infections and abnormal finding in the right kidney, thought to be a hyperdense cyst. She has been followed as an outpatient by Dr. Groves. She presents now with lower abdominal pain. She has incidental findings of some calcifications in the left kidney without significant obstruction. She also has findings on urinalysis consistent with urinary tract infection. She has had problems with recurrent urinary tract infections and most recently had a positive urine culture for Proteus in early May of this year. She has been placed on ceftriaxone. She has no indication to suggest pyelonephritis at this time and in particular, no flank pain, no fever. RECOMMENDATIONS: 1. IV hydration. 2. Agree with antibiotic therapy while urine cultures being performed. 3. No indication for surgical intervention for nonobstructive stone disease, but if she develops a fever or if the renal US demonstrates significant hydronephrosis, she will need cystoscopy and stent placement. Job ID: [id number] MTDD
[2018-06-05] MEDS: Acetaminophen 325 MG TAB PO PRN (04:44)
[2018-06-05] MEDS: HYDROcodone/Acetaminophen 5/325 mg Tablet PO PRN ×2 (04:45→08:35)
[2018-06-05 07:07] LABS: Anion Gap 17 mmol/L (10-20); BUN (Urea Nitrogen) 39 mg/dL (9.8-20.1); Calc. Creatinine Clearance 26 mL/min (70-130); Calcium 8.9 mg/dL (7.8-10.44); Carbon Dioxide 20 mmol/L (23-31); Chloride 104 mmol/L (98-107); Estimated GFR-MDRD 19; Glucose 113 mg/dL (80-115); Potassium 5.3 mmol/L (3.5-5.1); Sodium 136 mmol/L (136-145)
[2018-06-05 07:14] LABS: Troponin I 0.046 ng/mL (< 0.028)
[2018-06-05 07:37] LABS: Mean Corpuscular HGB CONC 32.8 g/dL (32.0-36.0); Mean Corpuscular Hemoglobin 30.4 pg (27.0-31.0); Mean Corpuscular Volume 92.5 fL (78.0-98.0); Red Blood Cell (RBC) Count 3.96 mill/uL (4.20-5.40)
--- NOTE | 2018-06-05 07:50 | ULT ---
BILATERAL RENAL ULTRASOUND: CLINICAL INDICATION: Acute kidney insufficiency superimposed upon chronic renal disease with hematuria and fever. FINDINGS: Demonstrated right renal length is 11 cm and the left renal length 10.4 cm. Moderate hydronephrosis of the left kidney is present. There are foci of increased echogenicity indicative of urolithiasis. No evidence of hydronephrosis within the right kidney. The urinary bladder is decompressed limiting evaluation. IMPRESSION: Evidence of left nephrolithiasis and moderate hydronephrosis. This may be further assessed with foll owup CT for definitive evaluation. POS: LEONEL
[2018-06-05] MEDS: FLUoxetine HCl 20 MG CAP PO SCH (08:31)
[2018-06-05] MEDS: Gabapentin 300 MG CAP PO SCH ×2 (08:31→20:24)
[2018-06-05] MEDS: Atorvastatin Calcium 40 MG TAB PO SCH (08:32)
[2018-06-05] MEDS: Calcitriol 0.25 MCG CAP PO SCH ×2 (08:32→20:25)
[2018-06-05 08:46] LABS: Lymphocytes 5 % (21-51); MDiff Complete? YES; Mean Platelet Volume 6.4 fL (7.4-10.4); Monocytes 4 % (0-10); Neutrophil 85 % (42-75); Platelet Count 446 thou/uL (130-400); Platelet Morphology Comment Appears Adequate; RBC Morphology Normal; Reactive Lymphocytes 6 % (0-10); White Blood Cell (WBC) Count 13.7 thou/uL (4.8-10.8)
[2018-06-05] MEDS: Carvedilol 25 MG TAB PO SCH ×3 (09:14→20:25)
[2018-06-05] MEDS: NIFEdipine XL 60 MG TAB PO SCH (09:14)
[2018-06-05] MEDS: Aspirin 81 mg Enteric Coated Tablet PO SCH (09:14)
[2018-06-05] MEDS ORDERED: Dexamethasone 20 MG/5 ML VIAL ONE (14:34)
[2018-06-05] MEDS ORDERED: PROPOFOL 200 MG/20 ML VIAL ONE (14:34)
[2018-06-05] MEDS ORDERED: Ondansetron PF 4 MG/2 ML Vial ONE (14:34)
[2018-06-05] MEDS ORDERED: Lidocaine 1% PF 5 ML VIAL ONE (14:34)
[2018-06-05] MEDS ORDERED: Labetalol HCl 100 MG/20 ML VIAL ONE (16:18)
[2018-06-05] MEDS: Sodium Chloride 0.9% 1,000 ML IV SCH (16:23)
--- NOTE | 2018-06-05 16:34 | PDOC.PN ---
- Subjective Encounter Start Date: 06/05/18 Encounter Start Time: 08:40 Pt seen for followup re: acute kidney injury. Says she feels better. - Objective Resuscitation Status - Order Detail: 06/04/18 21:55 Resuscitation Status Routine Resuscitation Status: FULL: Full Resuscitation Discussed with: patient DANIEL Reviewed: Yes Vital Signs & Weight: Vital Signs (12 hours) Temp Pulse Resp BP Pulse Ox 06/05/18 15:59 99 18 176/122 H 96 06/05/18 11:37 98.8 F 84 16 114/75 95 06/05/18 09:14 95 06/05/18 07:48 98.7 F 95 20 112/79 92 L 06/05/18 06:09 100.6 F H Weight Weight 187 lb 1 oz I&O: 06/04/18 06/05/18 06/06/18 06:59 06:59 06:59 Intake Total 360 Output Total 475 Balance -115 Result Diagrams: 06/05/18 06:37 06/05/18 06:37 Additional Labs: Accuchecks 06/05/18 06/05/18 06/04/18 11:41 04:28 22:46 POC Glucose 133 H 125 H 74 labs reviewed by me Phys Exam - Physical Examination Obese HEENT: moist MMs, sclera anicteric, oral pharynx no lesions, 2+ tonsils Neck: no nodes, no JVD, supple, full ROM Respiratory: clear to auscultation bilateral Cardiovascular: RRR, no rub S1, s2 Gastrointestinal: soft, non-tender, no distention, positive bowel sounds Neurological: moves all 4 limbs Psychiatric: normal affect, A&O x 3 Dx/Plan (1) MOOK (acute kidney injury) Code(s): N17.9 - ACUTE KIDNEY FAILURE, UNSPECIFIED Status: Acute Comment: secondary to obstructive uropathy +/- prerenal causes. Continue IV fluids. (2) Obstructive uropathy Code(s): N13.9 - OBSTRUCTIVE AND REFLUX UROPATHY, UNSPECIFIED Status: Acute Comment: Pt to go for ureteric stent later today (3) CAD (coronary artery disease) Code(s): I25.10 - ATHSCL HEART DISEASE OF [place] CORONARY ARTERY W/O ANG PCTRS Status: Chronic Qualifiers: Coronary Disease-Associated Artery/Lesion type: [place] artery [place] vs. transplanted heart: [place] heart Associated angina: without angina Qualified Code(s): I25.10 - Atherosclerotic heart disease of [place] coronary artery without angina pectoris Comment: stable 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 mellitus oyst[place] insulin use: with oyst[place] use Diabetes mellitus complication status: with kidney complications Diabetes mellitus complication detail: with chronic kidney disease Chronic kidney disease stage : stage 3 (moderate) Qualified Code(s): E11.22 - Type 2 diabetes mellitus with diabetic chronic kidney disease; N18.3 - Chronic kidney disease, stage 3 ( moderate); Z79.4 - USP (current) use of insulin Comment: reasonably controlled (5) Hypertension Code(s): I10 - ESSENTIAL (PRIMARY) HYPERTENSION Status: Chronic Qualifiers: Hypertension type: essential hypertension Qualified Code(s): I10 - Essential (primary) hypertension Comment: Monitor vital signs, titrate antihypertensives as needed - Plan * . Review of Systems - Review of Systems Constitutional: negative: fever, chills, sweats, weakness, malaise Respiratory: negative: Cough, Shortness of Breath, SOB with Excertion, Pleuritic Pain, Wheezing Cardiovascular: negative: chest pain, palpitations, orthopnea, paroxysmal nocturnal dyspnea, edema, light headedness Gastrointestinal: negative: Nausea, Vomiting, Abdominal Pain, Diarrhea, Constipation, Melena, Hematochezia Genitourinary: negative: Dysuria, Frequency, Incontinence, Hematuria, Retention Musculoskeletal: negative: Neck Pain, Shoulder Pain, Arm Pain, Back Pain, Hand Pain, Leg Pain, Foot Pain - Medications/Allergies Allergies/Adverse Reactions: Allergies Allergy/AdvReac Type Severity Reaction Status Date / Time No Known Drug Allergies Allergy Verified 08/19/17 23:42 morphine AdvReac Verified 06/04/18 22:19 Medications: Current Medications Acetaminophen (Tylenol) 650 mg PO Q4H PRN PRN Reason: Headache/Fever/Mild Pain (1-3) Last Admin: 06/05/18 04:44 Dose: 650 mg Hydrocodone Bitart/Acetaminophen ([place] 5/325) 1 tab PO Q4H PRN PRN Reason: Pain Last Admin: 06/05/18 08:35 Dose: 1 tab Aspirin (Ecotrin) 81 mg PO DAILY [facility] Last Admin: 06/05/18 09:14 Dose: Not Given Atorvastatin Calcium (Lipitor) 40 mg PO DAILY [facility] Last Admin: 06/05/18 08:32 Dose: 40 mg Benzonatate (Tessalon) 100 mg PO TID PRN PRN Reason: Cough Calcitriol (Rocaltrol) 0.25 mcg PO BID [facility] Last Admin: 06/05/18 08:32 Dose: 0.25 mcg Carvedilol (Coreg) 25 mg PO BID [facility] Last Admin: 06/05/18 15:47 Dose: 25 mg Fluoxetine HCl (Prozac) 40 mg PO DAILY [facility] Last Admin: 06/05/18 08:31 Dose: 40 mg Gabapentin (Neurontin) 300 mg PO BID [facility] Last Admin: 06/05/18 08:31 Dose: 300 mg Ceftriaxone Sodium 1 gm/ (Sodium Chloride) 100 mls @ 200 mls/hr IVPB Q24HR [facility] Sodium Chloride (Normal Saline 0.9%) 1,000 mls @ 50 mls/hr IV .Q20H [facility] Last Admin: 06/05/18 16:23 Dose: Not Given Nifedipine (Procardia Xl) 60 mg PO DAILY [facility] Last Admin: 06/05/18 09:14 Dose: Not Given Ondansetron HCl (Zofran) 4 mg IVP Q6H PRN PRN Reason: Nausea/Vomiting Sodium Chloride (Flush - Normal Saline) 10 ml IVF Q12HR [facility] Last Admin: 06/05/18 09:14 Dose: Not Given Sodium Chloride (Flush - Normal Saline) 10 ml IVF PRN PRN PRN Reason: Saline Flush Zolpidem Tartrate (Ambien) 5 mg PO HSPRN PRN PRN Reason: Insomnia
[2018-06-05] MEDS ORDERED: cefTRIAXone\\ROCEPHIN 1 GM in Sodium Chloride 0.9% 100 ML IVPB SCH (17:00)
[2018-06-05] MEDS ORDERED: Iothalamate Meglumine 60% 50 ML VIAL FS ONE (17:07)
[2018-06-05] MEDS ORDERED: Ondansetron HCl/PF 4 MG/2 ML Vial IVP PRN (18:26)
[2018-06-05] MEDS ORDERED: Promethazine HCl 25 MG/ML VIAL IM PRN (18:26)
[2018-06-05] MEDS ORDERED: Promethazine HCl 25 MG/ML VIAL SLOW IVP PRN (18:26)
--- NOTE | 2018-06-05 23:09 | OP ---
DATE OF PROCEDURE: 06/05/2018 PREOPERATIVE DIAGNOSIS: Left hydronephrosis, left renal calcifications, urinary tract infections. POSTOPERATIVE DIAGNOSIS: Left hydronephrosis, left renal calcifications, urinary tract infections. PROCEDURE: Cystoscopy, left double-J stent placement. ANESTHESIA: General. INDICATIONS: Ms. Mosqueda is a 62-year-old female who presented to the emergency room with pelvic pain and a rising creatinine. She is noted to have a urinalysis consistent with urinary tract infection. CT scan was performed and demonstrated calcification in the left kidney and mild hydronephrosis. She then had a renal ultrasound demonstrating moderate hydronephrosi on the left side. She had a low-grade fever overnight and for that reason, we opted to proceed with ureteral stent placement. DESCRIPTION OF PROCEDURE: Patient was given general anesthesia and IV antibiotics. She is sterilely prepped and draped and placed in a lithotomy position. A cystoscope was passed into the bladder. Bladder was examined in entirety. There were no mucosal lesions seen. Left ureteral orifice was intubated with a floppy tip guidewire which was passed cephalad under fluoroscopic control. Retrograde pyelography was performed to outline the upper urinary tract. There was not significant hydronephrosis, although there was very mild hydronephrosis. A double-J stent 4.8 x 24 was passed over the guidewire and coiled in the left renal pelvis and the bladder was determined fluoroscopically and cystoscopically. There was some purulent-appearing material draining from the stent. The bladder was drained. The Quevedo catheter was placed. The patient tolerated procedure well. She was transferred from the operative room to recovery room in stable condition. COMPLICATION: None. ESTIMATED BLOOD LOSS: Minimal. DISPOSITION: To PACU then back to hospital room. She has an appointment with her urologist next week. Job ID: [id number] MTDD
[2018-06-06] MEDS: cloNIDine 0.1 MG TAB PO PRN ×2 (05:40→10:26)
[2018-06-06] MEDS: Sodium Chloride 0.9% 1,000 ML IV SCH (06:57)
[2018-06-06] MEDS ORDERED: hydrALAZINE 20 MG/ML VIAL SLOW IVP SCH (07:15)
[2018-06-06] MEDS: Aspirin 81 mg Enteric Coated Tablet PO SCH (07:28)
[2018-06-06] MEDS: Carvedilol 25 MG TAB PO SCH ×2 (07:29→20:37)
[2018-06-06] MEDS: NIFEdipine XL 60 MG TAB PO SCH (07:29)
[2018-06-06] MEDS: FLUoxetine HCl 20 MG CAP PO SCH (08:51)
[2018-06-06] MEDS: Gabapentin 300 MG CAP PO SCH ×2 (08:51→20:37)
[2018-06-06] MEDS: Atorvastatin Calcium 40 MG TAB PO SCH (08:51)
[2018-06-06] MEDS: Calcitriol 0.25 MCG CAP PO SCH ×2 (08:51→20:37)
[2018-06-06] MEDS: HYDROcodone/Acetaminophen 5/325 mg Tablet PO PRN ×3 (10:25→17:30)
[2018-06-06 12:57] LABS: Anion Gap 16 mmol/L (10-20); BUN (Urea Nitrogen) 33 mg/dL (9.8-20.1); Calc. Creatinine Clearance 31 mL/min (70-130); Calcium 9.5 mg/dL (7.8-10.44); Carbon Dioxide 20 mmol/L (23-31); Chloride 108 mmol/L (98-107); Estimated GFR-MDRD 24; Glucose 103 mg/dL (80-115); Potassium 4.9 mmol/L (3.5-5.1); Sodium 139 mmol/L (136-145)
--- NOTE | 2018-06-06 16:41 | PDOC.PN ---
- Subjective Encounter Start Date: 06/06/18 Encounter Start Time: 09:20 Pt seen for followup re: acute kidney injury. Denies chest pain, shortness of breath, fevers or chills. - Objective Resuscitation Status - Order Detail: 06/04/18 21:55 Resuscitation Status Routine Resuscitation Status: FULL: Full Resuscitation Discussed with: jorge SANCHEZ Reviewed: Yes Vital Signs & Weight: Vital Signs (12 hours) Temp Pulse Resp BP BP Pulse Ox 06/06/18 16:00 98.6 F 85 16 138/91 H 99 06/06/18 11:39 98.6 F 92 18 152/98 H 97 06/06/18 10:26 179/105 H 06/06/18 07:29 80 06/06/18 07:28 80 06/06/18 06:51 80 184/125 H 06/06/18 05:40 185/114 H 06/06/18 05:16 98.0 F 78 16 170/114 H 95 Weight Weight 187 lb 1 oz I&O: 06/05/18 06/06/18 06/07/18 06:59 06:59 06:59 Intake Total 360 Output Total 475 450 Balance -115 -450 Result Diagrams: 06/05/18 06:37 06/06/18 12:33 Additional Labs: Accuchecks 06/06/18 06/06/18 06/05/18 10:28 05:10 19:57 POC Glucose 121 H 149 H 241 H Labs reviewed by me Phys Exam - Physical Examination Constitutional: NAD HEENT: moist MMs Neck: supple Respiratory: clear to auscultation bilateral Cardiovascular: RRR Gastrointestinal: soft Neurological: moves all 4 limbs Psychiatric: normal affect Dx/Plan (1) MOOK (acute kidney injury) Code(s): N17.9 - ACUTE KIDNEY FAILURE, UNSPECIFIED Status: Acute Comment: creatinine improved to 2.50 today. (2) UTI (urinary tract infection) Status: Acute Comment: final urine culture negative, will switch to oral cipro. (recent UTI with Proteus). (3) Obstructive uropathy Code(s): N13.9 - OBSTRUCTIVE AND REFLUX UROPATHY, UNSPECIFIED Status: Acute Comment: s/p ureteric stent (4) CAD (coronary artery disease) Code(s): I25.10 - ATHSCL HEART DISEASE OF [place] CORONARY ARTERY W/O ANG PCTRS Status: Chronic Qualifiers: Coronary Disease-Associated Artery/Lesion type: [place] artery [place] vs. transplanted heart: [place] heart Associated angina: without angina Qualified Code(s): I25.10 - Atherosclerotic heart disease of [place] coronary artery without angina pectoris Comment: stable (5) DM type 2 (diabetes mellitus, type 2) Status: Chronic Qualifiers: Diabetes mellitus intermediate insulin use: with intermediate use Diabetes mellitus complication status: with kidney complications Diabetes mellitus complication detail: with chronic kidney disease Chronic kidney disease stage : stage 3 (moderate) Qualified Code(s): E11.22 - Type 2 diabetes mellitus with diabetic chronic kidney disease; N18.3 - Chronic kidney disease, stage 3 ( moderate); Z79.4 - [facility] (current) use of insulin Comment: reasonably controlled (6) Hypertension Code(s): I10 - ESSENTIAL (PRIMARY) HYPERTENSION Status: Chronic Qualifiers: Hypertension type: essential hypertension Qualified Code(s): I10 - Essential (primary) hypertension Comment: titrate antihypertensives as needed - Plan * . Review of Systems - Review of Systems Respiratory: negative: Cough, Shortness of Breath, SOB with Excertion, Pleuritic Pain, Wheezing Cardiovascular: negative: chest pain, palpitations, orthopnea, paroxysmal nocturnal dyspnea, edema, light headedness - Medications/Allergies Allergies/Adverse Reactions: Allergies Allergy/AdvReac Type Severity Reaction Status Date / Time No Known Drug Allergies Allergy Verified 08/19/17 23:42 morphine AdvReac Verified 06/04/18 22:19 Medications: Current Medications Acetaminophen (Tylenol) 650 mg PO Q4H PRN PRN Reason: Headache/Fever/Mild Pain (1-3) Last Admin: 06/05/18 04:44 Dose: 650 mg Hydrocodone Bitart/Acetaminophen ([place] 5/325) 1 tab PO Q4H PRN PRN Reason: Pain Last Admin: 06/06/18 13:43 Dose: 1 tab Aspirin (Ecotrin) 81 mg PO DAILY [facility] Last Admin: 06/06/18 07:28 Dose: Not Given Atorvastatin Calcium (Lipitor) 40 mg PO DAILY [facility] Last Admin: 06/06/18 08:51 Dose: Not Given Benzonatate (Tessalon) 100 mg PO TID PRN PRN Reason: Cough Calcitriol (Rocaltrol) 0.25 mcg PO BID [facility] Last Admin: 06/06/18 08:51 Dose: Not Given Carvedilol (Coreg) 25 mg PO BID [facility] Last Admin: 06/06/18 07:29 Dose: 25 mg Clonidine (Catapres) 0.1 mg PO Q6H PRN PRN Reason: SBP Greater Than 170 Last Admin: 06/06/18 10:26 Dose: 0.1 mg Fluoxetine HCl (Prozac) 40 mg PO DAILY [facility] Last Admin: 06/06/18 08:51 Dose: Not Given Gabapentin (Neurontin) 300 mg PO BID [facility] Last Admin: 06/06/18 08:51 Dose: Not Given Ceftriaxone Sodium 1 gm/ (Sodium Chloride) 100 mls @ 200 mls/hr IVPB Q24HR [facility] Last Admin: 06/05/18 17:52 Dose: Not Given Nifedipine (Procardia Xl) 60 mg PO DAILY [facility] Last Admin: 06/06/18 07:29 Dose: 60 mg Ondansetron HCl (Zofran) 4 mg IVP Q6H PRN PRN Reason: Nausea/Vomiting Sodium Chloride (Flush - Normal Saline) 10 ml IVF Q12HR [facility] Last Admin: 06/06/18 09:00 Dose: Not Given Sodium Chloride (Flush - Normal Saline) 10 ml IVF PRN PRN PRN Reason: Saline Flush Zolpidem Tartrate (Ambien) 5 mg PO HSPRN PRN PRN Reason: Insomnia
--- NOTE | 2018-06-06 20:30 | PRG ---
DATE OF SERVICE: 06/06/2018 SUBJECTIVE: The patient was seen and examined at bedside and overnight events noted. The patient denies any shortness of breath or chest pain or palpitation. No history of nausea or vomiting or diarrhea or fever or chills or cramps. OBJECTIVE: GENERAL: This is a well-built female, in no apparent distress. VITAL SIGNS: Temperature 98.6, pulse 85, respiratory rate 16, blood pressure 138/91. HEENT: Atraumatic, normocephalic. Oral mucosa is moist NECK: Supple. CARDIOVASCULAR: S1, S2 heard. Rate and rhythm regular. RESPIRATORY: Clear to auscultation. GASTROINTESTINAL: Abdomen is soft. MUSCULOSKELETAL: No tenderness. No edema. DERMATOLOGIC: No skin rash. NEUROLOGIC: Alert and awake and oriented X3. No focal neurologic deficits. Moving all the extremities. PSYCHIATRIC: Mood and affect normal. LABORATORY DATA: Potassium is 4.9, BUN is 33, creatinine is 2.5. ASSESSMENT AND PLAN: 1. Acute kidney injury, renal function is getting better. 2. Metabolic acidosis. We will monitor. 3. Hyperlipidemia. 4. Hypertension. 5. Anemia. 6. Renal function, getting better. Cautious IV hydration. Monitor cardiorespiratory status closely. Job ID: [id number]
[2018-06-06] MEDS: Ciprofloxacin 500 MG TAB PO SCH (20:37)
[2018-06-07] MEDS: Ciprofloxacin 500 MG TAB PO SCH (05:23)
[2018-06-07 06:49] LABS: Anion Gap 15 mmol/L (10-20); BUN (Urea Nitrogen) 28 mg/dL (9.8-20.1); Calc. Creatinine Clearance 34 mL/min (70-130); Calcium 9.2 mg/dL (7.8-10.44); Carbon Dioxide 23 mmol/L (23-31); Chloride 106 mmol/L (98-107); Estimated GFR-MDRD 26; Glucose 91 mg/dL (80-115); Potassium 4.5 mmol/L (3.5-5.1); Sodium 139 mmol/L (136-145)
[2018-06-07] MEDS: Acetaminophen 325 MG TAB PO PRN (08:42)
[2018-06-07] MEDS: Atorvastatin Calcium 40 MG TAB PO SCH (08:42)
[2018-06-07] MEDS: Calcitriol 0.25 MCG CAP PO SCH (08:43)
[2018-06-07] MEDS: Carvedilol 25 MG TAB PO SCH (08:43)
[2018-06-07] MEDS: Aspirin 81 mg Enteric Coated Tablet PO SCH (08:43)
[2018-06-07] MEDS: Gabapentin 300 MG CAP PO SCH (08:43)
[2018-06-07] MEDS: NIFEdipine XL 60 MG TAB PO SCH (08:43)
[2018-06-07] MEDS: FLUoxetine HCl 20 MG CAP PO SCH (08:43)
--- NOTE | 2018-06-07 10:01 | CON ---
DATE OF CONSULTATION: 06/05/2018 CONSULTING PHYSICIAN: Dr. Navas. REASON FOR CONSULTATION: Acute kidney injury. REASON FOR ADMISSION: Abdominal pain. HISTORY OF PRESENT ILLNESS: A 62-year-old female with history of hypertension, type 2 diabetes, and sleep apnea, came to the hospital with abdominal pain and was found to have left nephrolithiasis. No chest pain or palpitation. No fevers. PAST MEDICAL HISTORY: Positive for hypertension, diabetes mellitus, CKD, Crohn disease, and pancreatitis. PAST SURGICAL HISTORY: Appendectomy, cholecystectomy, and hysterectomy. HOME MEDICATIONS: Reviewed. ALLERGIES: NO KNOWN DRUG ALLERGIES. SOCIAL HISTORY: No smoking, alcohol, or illicit drug abuse. FAMILY HISTORY: No history of any kidney disease. REVIEW OF SYSTEMS: CONSTITUTIONAL: Negative for weight loss or gain, ability to conduct usual activities. SKIN: Negative for rash, itching. EYES: Negative for double vision, pain. ENT/MOUTH: Negative for nose bleeding, neck stiffness, pain, tenderness. CARDIOVASCULAR: Negative for palpitations, dyspnea on exertion, orthopnea. RESPIRATORY: Negative for shortness of breath, wheezing, cough, hemoptysis, fever or night sweats. GASTROINTESTINAL: Negative for poor appetite, abdominal pain, heartburn, nausea, vomiting, constipation, or diarrhea. GENITOURINARY: Negative for urgency, frequency, dysuria, nocturia. MUSCULOSKELETAL: Negative for pain, swelling. NEUROLOGIC/PSYCHIATRIC: Negative for anxiety, depression. ALLERGY/IMMUNOLOGIC: Negative for skin rash, bleeding tendency. PHYSICAL EXAMINATION: GENERAL: Reveals a well-built female, in no apparent distress. VITAL SIGNS: Temperature 98.8, pulse 84, respiratory rate 16, blood pressure 114/75. LABORATORY DATA: Potassium is 5.3, BUN is 39, creatinine is 2.9 from 3.5 on admission. ASSESSMENT AND PLAN: 1. Acute kidney injury. Renal function getting better. Continue hydration. 2. Nephrolithiasis with urinary obstruction. Follow with Urology. 3. Hyperkalemia, limit potassium intake. 4. Urinary tract infection, follow up cultures. 5. Pyuria. 6. Edema, controlled. 7. Secondary hyperparathyroidism. We will follow. 8. Mild proteinuria. Continue IV fluids if tolerated. Avoid nephrotoxins. Will follow up with Urology. Job ID: [id number]
[2018-06-07 11:44] VITALS: BP 151/98; TEMP 98.1
--- NOTE | 2018-06-07 12:58 | PRG ---
DATE OF SERVICE: 06/07/2018 SUBJECTIVE: A 62-year-old female being seen for acute kidney injury. The patient denied nausea, vomiting, or chest pain. OBJECTIVE: GENERAL: The patient is awake and alert. VITAL SIGNS: Pulse 87, breathing 16, blood pressure 151/90. GENERAL APPEARANCE AND MENTAL STATUS: Fair. HEAD/NECK: Normocephalic. Atraumatic. EYES: EOMI. No deformity. EARS: Clear. No ulcers. NOSE: Intact. No lesions. MOUTH: Clear. No discharge. THROAT: Clear. No exudate. LUNGS: Clear. No crackles. CARDIAC: S1, S2. No rub. ABDOMEN: Benign. Bowel sounds positive. GENITALIA/RECTUM: Quevedo absent. BACK/EXTREMITIES: Edema 0+. NEUROLOGICAL: Alert and motor intact. SKIN: LYMPHATICS: LABORATORY DATA: Labs show hemoglobin 12. Creatinine 2.0. ASSESSMENT AND PLAN: 1. Acute kidney injury, improved. 2. Hypertension, stable. 3. Anemia, stable. Medication based on GFR appropriate. Job ID: [id number]
--- NOTE | 2018-06-07 17:42 | EKG ---
Test Reason : Blood Pressure : / mmHG Vent. Rate : 092 BPM Atrial Rate : 092 BPM P-R Int : 154 ms QRS Dur : 084 ms QT Int : 406 ms P-R-T Axes : 048 003 033 degrees QTc Int : 502 ms Normal sinus rhythm Prolonged QT Abnormal ECG When compared with ECG of 18-MAR-2018 09:25, No significant change was found Confirmed by DR. Qamar NANCE ([id number]) on 06/07/2018 5:41:36 PM Referred By: JORDY Confirmed By:DR. Qamar NANCE
--- NOTE | 2018-06-08 03:22 | DIS ---
DATE OF ADMISSION: 06/04/2018 DATE OF DISCHARGE: 06/07/2018 PRIMARY CARE PROVIDER: Crys Andrade MD DISCHARGE DIAGNOSES: 1. Acute kidney injury. 2. Obstructive uropathy. 3. Urinary tract infection, suspected. CONDITION OF PATIENT ON THE DAY OF DISCHARGE: Stable. I assessed Ms. Mosqueda on the day of discharge. She denies any chest pain or shortness of breath. Vital signs are stable. S1 and S2 are heard, regular. Lungs are clear to auscultation bilaterally. CONSULTATIONS DURING THIS HOSPITALIZATION: Nephrology, Dr. Valverde and Urology, Dr. Prakash. DISCHARGE MEDICATIONS: 1. Lipitor 40 mg daily. 2. Brexpiprazole 2 mg daily. 3. Coreg 25 mg 2 times a day. 4. Clonidine 0.3 mg 2 times a day. 5. Dexilant 30 mg daily. 6. Doxepin 100 mg at bedtime. 7. Fluoxetine 60 mg daily. 8. Flonase nasal spray. 9. Gabapentin 300 mg 2 times a day. 10. Hydralazine 100 mg three times a day. 11. Amitiza 24 mcg 2 times a day. 12. Nifedipine ER 60 mg daily. 13. Potassium chloride 10 mEq daily. 14. Seroquel 200 mg at bedtime. 15. Torsemide 20 mg daily. HOSPITAL COURSE: Ms. Mosqueda is a pleasant 62-year-old lady, who was admitted to [facility] on 06/04/2018, for acute kidney injury on chronic kidney disease stage 3. She had CT scan of abdomen and pelvis, which showed minimal to mild left-sided obstructive uropathy secondary to calcification in the left renal pelvis. Additional calcifications were noted in the left upper pole calyces. She was seen by Nephrology and Urology Services. She received intravenous fluids. Renal ultrasound on 06/05, showed evidence of left nephrolithiasis and moderate hydronephrosis. On 06/05, she had cystoscopy with left double-J stent placement. Her creatinine improved. Losartan was on hold at the time of admission, she is advised to resume it after clearance by Nephrology Service. On the day of discharge, Ms. Mosqueda has sodium of 139; potassium 4.5, creatinine 2.27, decreased from 3.50 at the time of admission. Estimated GFR 26 and blood urea nitrogen of 28. She was also started on empiric antibiotics because she spiked fever following admission. Final urine culture was negative. She is being discharged home on ciprofloxacin based on prior urine culture result, which grew Proteus mirabilis which was resistant to nitrofurantoin, but was otherwise pansensitive. She is advised to follow up with her primary care provider in 3 to 5 days' time. At that time, she will need her chem-7 checked. Many thanks for allowing me to participate in your patient's care. Please feel free to contact me with any questions or concerns. DISCHARGE DESTINATION: Home. TOTAL AMOUNT OF TIME SPENT COORDINATING THIS DISCHARGE: 32 minutes. Job ID: [id number]
== END 2018-06-07 15:03 | disposition home or self-care (01) | DRG 683 ==
LOC: ERS 16:21 → T4-A 21:29
PROVIDERS: ADMIT Internal Medicine; ATTEND Internal Medicine
PROC: 0T9780Z Drainage of Left Ureter with Drainage Device, Via Natural or Artificial Opening Endoscopic (ICD-10-PCS; principal; 2018-06-05)
DX: N17.9 Acute kidney failure, unspecified (principal); K50.90 Crohn's disease, unspecified, without complications; E87.2 Acidosis; N13.6 Pyonephrosis; G47.30 Sleep apnea, unspecified; K21.9 Gastro-esophageal reflux disease without esophagitis; N18.3 Chronic kidney disease, stage 3 (moderate); I12.9 Hypertensive chronic kidney disease with stage 1 through stage 4 chronic kidney disease, or unspecified chronic kidney disease; E11.22 Type 2 diabetes mellitus with diabetic chronic kidney disease; E66.9 Obesity, unspecified; N25.81 Secondary hyperparathyroidism of renal origin; N13.9 Obstructive and reflux uropathy, unspecified; I25.10 Atherosclerotic heart disease of native coronary artery without angina pectoris; D63.1 Anemia in chronic kidney disease; E87.5 Hyperkalemia; Z79.84 Long term (current) use of oral hypoglycemic drugs; Z79.899 Other long term (current) drug therapy; Z68.34 Body mass index [BMI] 34.0-34.9, adult; Z90.49 Acquired absence of other specified parts of digestive tract
CPT/HCPCS: 36415; 36416; 71045; 74176; 76000; 76770; 80048; 80053; 81003; 81015; 83605; 83690; 83970; 84484; 85025; 87040; 87086; 93005; 93010; 93306; 94760; C1758; C1769; J0360; J0696; J1100; J1956; J2001; J2405; J2704; J7050; Q9961

== ENCOUNTER 2018-06-09 12:52 | Outpatient (CLI) | payer OTHER ==
--- NOTE | 2018-06-09 13:45 | ULT ---
THYROID ULTRASOUND: HISTORY: Low TSH levels. COMPARISON: 02/09/2007. TECHNIQUE: Sagittal and transverse imaging of the thyroid gland is performed. FINDINGS: Thyroid isthmus measures 0.6 cm. The right thyroid lobe measures 3.9 x 1.9 x 1.6 cm. The left thyro id lobe measures 1.7 x 1.5 x 4.2 cm. There are multiple simple and complex cystic lesions throughout the thyroid gland. The largest lesio n in the left thyroid lobe measures 0.8 x 0.5 x 0.4 cm. The largest lesion in the right thyroid lobe measures 0.8 x 0.7 x 0.4 cm. IMPRESSION: Multiple simple and complex cystic lesions throughout the thyroid gland. POS: [facility]
== END 2018-06-09 12:53 | disposition home or self-care (01) ==
LOC: BICULT 12:52
PROVIDERS: ATTEND Family Medicine
DX: R79.89 Other specified abnormal findings of blood chemistry (principal); E07.9 Disorder of thyroid, unspecified
CPT/HCPCS: 76536

== ENCOUNTER 2018-06-10 10:50 | Outpatient (CLI) | payer OTHER ==
--- NOTE | 2018-06-10 11:40 | RAD ---
LEFT HIP 2 VIEWS: Date: 06/10/18 HISTORY: Hip pain. COMPARISON: 01/07/18. FINDINGS: Femoral head contour is normal. Minimal degenerative change. No fracture or acute abnormality. IMPRESSION: No acute findings. POS: [facility]
== END 2018-06-10 10:51 | disposition home or self-care (01) ==
LOC: BICRAD 10:50
PROVIDERS: ATTEND Family Medicine
DX: M25.552 Pain in left hip (principal)

== ENCOUNTER 2018-06-11 17:25 | Emergency (ER) | payer OTHER ==
[2018-06-11 18:19] LABS: #Eosinphils 0.2 thou/uL (0.0-0.7); #Lymphocytes 1.5 thou/uL (1.20-3.40); #Monocytes 0.9 thou/uL (0.11-0.59); #Neutrophils 9.9 thou/uL (1.40-6.50); %Basophils 0.1 % (0.0-1.0); %Eosinophils 1.2 % (0.0-10.0); %Lymphocytes 12.4 % (21.0-51.0); %Monocytes 7.3 % (0.0-10.0); Hemoglobin 11.8 g/dL (12.0-16.0); Mean Corpuscular HGB CONC 32.6 g/dL (32.0-36.0); Mean Corpuscular Hemoglobin 30.2 pg (27.0-31.0); Mean Corpuscular Volume 92.8 fL (78.0-98.0); Mean Platelet Volume 6.5 fL (7.4-10.4); Platelet Count 497 thou/uL (130-400); RBC Distribution Width 14.3 % (11.5-14.5); Red Blood Cell (RBC) Count 3.89 mill/uL (4.20-5.40); White Blood Cell (WBC) Count 12.5 thou/uL (4.8-10.8)
[2018-06-11 18:42] LABS: ALT (SGPT) 16 U/L (8-55); AST (SGOT) 31 U/L (5-34); Alkaline Phosphatase 220 U/L (40-150); Anion Gap 14 mmol/L (10-20); BUN (Urea Nitrogen) 14 mg/dL (9.8-20.1); Bilirubin, Total 0.4 mg/dL (0.2-1.2); Calc. Creatinine Clearance 0 mL/min (70-130); Calcium 8.8 mg/dL (7.8-10.44); Carbon Dioxide 18 mmol/L (23-31); Chloride 107 mmol/L (98-107); Estimated GFR-MDRD 32; Globulin 4.7 g/dL (2.4-3.5); Glucose 74 mg/dL (80-115); Magnesium 1.6 mg/dL (1.6-2.6); Potassium 4.2 mmol/L (3.5-5.1); Protein, Total 7.7 g/dL (6.0-8.3); Sodium 135 mmol/L (136-145)
--- NOTE | 2018-06-11 19:16 | RAD ---
PORTABLE CHEST: 06/11/18 Supine exam. INDICATIONS: Fever. Comparison 06/04/18. Lungs appear clear. No infiltrate or vascular congestion. Heart and mediastinum unremarkable. A Medip ort catheter remains in place. IMPRESSION: No acute finding. POS: [facility]
--- NOTE | 2018-06-11 20:08 | CT ---
CT OF ABDOMEN AND PELVIS PERFORMED WITHOUT CONTRAST ENHANCEMENT: 06/11/18 HISTORY: Nephrolithiasis. Urinary incontinence. Flank pain, fever, status post stent placement. COMPARISON: 06/04/18 exam. The lung bases are clear. The liver, spleen and pancreas regions appear unremarkable. Gallbladder has been removed. Right and left adrenal glands are normal in appearance. Left sided renal calculi are again demonstrat ed. A ureteral stent appears to be in good position. Minimal dilatation of left collecting system is seen, less prominent than on the prior exam. No significant periaortic or mesenteric adenopathy. A mo derate amount of stool is seen within the right colon. CT OF PELVIS PERFORMED WITHOUT CONTRAST ENHANCEMENT: There is postoperative changes of the small bowel seen in the left lower quadrant. There is no eviden ce of any significant adenopathy or mass. No free fluid. IMPRESSION: 1. Left sided renal calculi. Left renal stent appears to be in good position. 2. Postop cholecystectomy change. 3. Moderate amount of stool within the right colon. POS: [facility]
[2018-06-11] MEDS ORDERED: cefTRIAXone\\ROCEPHIN 2 GM VIAL ONE (20:12)
[2018-06-11 21:06] LABS: Bilirubin Negative (Negative); Blood, Urine Large (Negative); Clarity CLEAR (Clear); Glucose, Urine (Dipstick) 250 mg/dL (Negative); Leukocyte Small (Negative); Nitrite Negative (Negative); Protein, Urine (Dipstick) 30 mg/dL (Neg-Trace); Specific Gravity, Urine 1.008 (1.002-1.036); pH, Urine 6.5 (5.0-9.0)
[2018-06-11 21:08] LABS: Bacteria/HPF None Seen HPF (None Seen); Hyaline Casts/LPF 4-6 HYALINE CAST LPF (0-3 Hyaline); Pathc Cast-AUWi Flag 1.08 (0-2.49); RBC/HPF GREATER THAN 50-TNTC HPF (0-3); Squamous Epithelial 0-3 HPF (0-3)
== END 2018-06-11 22:07 | disposition home or self-care (01) ==
LOC: ERS 17:25
DX: R50.9 Fever, unspecified (principal); R10.9 Unspecified abdominal pain; I10 Essential (primary) hypertension; G47.30 Sleep apnea, unspecified; K21.9 Gastro-esophageal reflux disease without esophagitis; E11.9 Type 2 diabetes mellitus without complications; J45.909 Unspecified asthma, uncomplicated; F31.9 Bipolar disorder, unspecified; F41.9 Anxiety disorder, unspecified; F17.210 Nicotine dependence, cigarettes, uncomplicated; Z79.891 Long term (current) use of opiate analgesic; Z79.899 Other long term (current) drug therapy; Z79.4 Long term (current) use of insulin
CPT/HCPCS: 36415; 71045; 74176; 80053; 81003; 81015; 83605; 83735; 85025; 87040; 87086; 87804; 93005; 96361; 96365; J0696

== ENCOUNTER 2018-06-24 12:25 | Outpatient (CLI) | payer OTHER ==
[2018-06-24 13:40] LABS: Hemoglobin 11.4 g/dL (12.0-16.0); Mean Corpuscular HGB CONC 33.1 g/dL (32.0-36.0); Mean Corpuscular Hemoglobin 29.6 pg (27.0-31.0); Mean Corpuscular Volume 89.3 fL (78.0-98.0); Mean Platelet Volume 6.1 fL (7.4-10.4); Platelet Count 591 thou/uL (130-400); RBC Distribution Width 14.6 % (11.5-14.5); Red Blood Cell (RBC) Count 3.86 mill/uL (4.20-5.40); White Blood Cell (WBC) Count 6.1 thou/uL (4.8-10.8)
[2018-06-24 13:42] LABS: INR-International Normal Ratio 1.1; Prothrombin Time 14.6 SEC (12.0-14.7)
[2018-06-24 13:43] LABS: PTT 41.6 SEC (22.9-36.1)
[2018-06-24 14:03] LABS: Anion Gap 15 mmol/L (10-20); BUN (Urea Nitrogen) 12 mg/dL (9.8-20.1); Calc. Creatinine Clearance 0 mL/min (70-130); Calcium 9.5 mg/dL (7.8-10.44); Carbon Dioxide 25 mmol/L (23-31); Chloride 104 mmol/L (98-107); Estimated GFR-MDRD 32; Glucose 68 mg/dL (80-115); Sodium 140 mmol/L (136-145)
== END 2018-06-24 12:26 | disposition home or self-care (01) ==
LOC: LABBT 12:25
PROVIDERS: ATTEND Urology
DX: Z01.812 Encounter for preprocedural laboratory examination (principal); N20.0 Calculus of kidney; K50.90 Crohn's disease, unspecified, without complications; R31.29 Other microscopic hematuria; E11.9 Type 2 diabetes mellitus without complications; Z87.898 Personal history of other specified conditions
CPT/HCPCS: 80048; 85027; 85610; 85730

== ENCOUNTER 2018-06-28 14:30 | Outpatient (CLI) | payer OTHER ==
[2018-06-28 15:55] LABS: Hemoglobin 12.9 g/dL (12.0-16.0); Mean Corpuscular HGB CONC 32.4 g/dL (32.0-36.0); Mean Corpuscular Hemoglobin 29.5 pg (27.0-31.0); Mean Corpuscular Volume 90.9 fL (78.0-98.0); Mean Platelet Volume 6.6 fL (7.4-10.4); Platelet Count 491 thou/uL (130-400); Red Blood Cell (RBC) Count 4.37 mill/uL (4.20-5.40); White Blood Cell (WBC) Count 5.6 thou/uL (4.8-10.8)
[2018-06-28 16:06] LABS: INR-International Normal Ratio 1.1; PTT 43.3 SEC (22.9-36.1); Prothrombin Time 14.5 SEC (12.0-14.7)
[2018-06-28 16:13] LABS: Anion Gap 17 mmol/L (10-20); BUN (Urea Nitrogen) 16 mg/dL (9.8-20.1); Calc. Creatinine Clearance 0 mL/min (70-130); Calcium 9.6 mg/dL (7.8-10.44); Carbon Dioxide 22 mmol/L (23-31); Chloride 103 mmol/L (98-107); Estimated GFR-MDRD 30; Glucose 78 mg/dL (80-115); Potassium 3.7 mmol/L (3.5-5.1); Sodium 138 mmol/L (136-145)
== END 2018-06-28 14:31 | disposition home or self-care (01) ==
LOC: LABBT 14:30
PROVIDERS: ATTEND Urology
DX: Z01.812 Encounter for preprocedural laboratory examination (principal); N20.0 Calculus of kidney; K50.90 Crohn's disease, unspecified, without complications; R31.29 Other microscopic hematuria; E11.9 Type 2 diabetes mellitus without complications; Z87.898 Personal history of other specified conditions
CPT/HCPCS: 80048; 81001; 85027; 85610; 85730; 87086

== ENCOUNTER 2018-07-12 06:33 | Day surgery (SDC) | payer OTHER ==
[2018-06-28 14:50] VITALS: BMI 33.6
[2018-07-12] MEDS ORDERED: Piperacillin/Tazobactam 3.375 GM VIAL ONE (07:37)
[2018-07-12] MEDS ORDERED: Sodium Chloride 0.9% 100 ML ONE (07:38)
--- NOTE | 2018-07-12 07:50 | RAD ---
XR Abdomen 1 View/KUB History: [Preop] Comparison: Radiograph May 11, 2018. CT abdomen and pelvis June 11, 2018 Findings: There is a left double-J ureteral stent in place. There are right upper quadrant surgical c lips. There are phleboliths in the pelvis. No abnormal calcifications are seen over either renal shadow. Impression: In situ left double-J ureteral stent. No abnormal calcifications are appreciated projecti ng over either renal shadow.
[2018-07-12] MEDS ORDERED: Fentanyl 100 MCG/2 ML VIAL ONE (09:07)
[2018-07-12] MEDS ORDERED: Midazolam HCl 2 mg/2 ml Vial ONE (09:07)
[2018-07-12] MEDS ORDERED: Iothalamate Meglumine 60% 50 ML VIAL FS ONE (11:21)
[2018-07-12] MEDS ORDERED: Oxybutynin 5 MG TAB ONE (11:47)
[2018-07-12] MEDS ORDERED: Phenazopyridine HCl 97.5 MG TABLET ONE (11:48)
--- NOTE | 2018-07-12 12:34 | OP ---
DATE OF PROCEDURE: 07/12/2018 PREOPERATIVE DIAGNOSES: A 62-year-old female with, 1. History of diabetes. 2. History of Proteus urinary tract infection with repeat urine culture negative. 3. History of left renal pelvic stone moiety 9 mm, left upper pole curvilinear x3 about 5 mm thin long axis x3. POSTOPERATIVE DIAGNOSES: A 62-year-old female with, 1. History of diabetes. 2. History of Proteus urinary tract infection with repeat urine culture negative. 3. History of left renal pelvic stone moiety 9 mm, left upper pole curvilinear x3 about 5 mm thin long axis x3. PROCEDURE PERFORMED: Cystoscopy, left retrograde pyelogram, 6 x 24 double-J ureteral stent exchange, ureteroscopy, pyeloscopy, laser lithotripsy of matrix stone, basket extraction of stone debris. ANESTHESIA: General. COMPLICATIONS: None apparent. DISPOSITION: To recovery room in stable condition. INTRAOPERATIVE FINDINGS: 1. Bladder grossly unremarkable. 2. Pyeloscopy demonstrating matrix stone. No obvious calcific density within the collecting system noted. INDICATIONS FOR PROCEDURE AND HISTORY: Ms. Mosqueda is a 62-year-old female, whom I had previously seen for history of urinary retention, this resolved. Her prior CT did not demonstrate evidence of stone nidus. She presented in an emergent setting with history of infection, stone, Dr. Prakash, who was on-call, placed a stent back in June 04. Urine culture demonstrating Proteus mirabilis appropriately treated and has been on prophylaxis. She presents today for ureteroscopy, pyeloscopy, laser lithotripsy. Her most recent CAT scan demonstrating the stone, demonstrated 9 mm left renal pelvic stone with mild hydronephrosis. Curvilinear calcific density in the left upper pole x3 measuring 5 mm. She does not have prior history of kidney stones. She presents today for the procedure, ureteroscopy, laser lithotripsy. Risks and complications including, but not limited to bleeding, pain, infection, injury to adjacent organs, urosepsis, stricture formation, possible secondary procedure were reviewed. All questions were answered to her satisfaction. She desired to proceed. Of note, I have discussed this with GI and primary care. The patient has been cleared to discontinue her Farxiga, and hold the Remicade due to increased risk of sepsis. DESCRIPTION OF PROCEDURE: After an informed consent was signed, the patient was taken to the operating room, placed in the dorsal lithotomy position with the genital area prepped and draped in the usual surgical sterile fashion. A 21- Swazi cystoscope was utilized for cystoscopy, which demonstrated normal bladder mucosa. There was some debris within the bladder, which was irrigated. The pre-existing ureteral stent was removed to the level of the meatus and a 0.35 Sensor wire passed through the stent and the stent completely removed. At this time, a 10-Swazi dual-lumen access sheath was utilized and was passed through the existing wire and a retrograde pyelogram demonstrated evidence of no hydronephrosis. There was a large filling defect in the renal pelvis consistent with the CT of this possible stone. At this time, an 11/13-Swazi by 28 cm navigator was passed over a second wire that was passed through the 10-Swazi dual-lumen access sheath. It was passed without difficulty. It was passed to the level of the proximal ureter. A flexible ureteroscope was then advanced over the working wire. Pyeloscopy demonstrated a large mucoid matrix stone that had migrated into the upper pole. It encompassed the entire left upper pole collecting system. It was soft, mucoid-appearing consistent with an infected stone. We tried laser lithotripsy of the stone using 365 micron fiber at this setting. Although, we were able to make some progress, given the moiety of the stone as mucoid matrix like, it would not laser adequately due to its matrix stone moiety. Therefore, we utilized multiple baskets using Zero Tip back-loading biopsy forceps, a Stella. What worked best was a Zero Tip Nitinol basket. We were able to retrieve the matrix stone debris in piecemeal. It was quite tedious. However, we were able to remove the matrix stone debris. What remained were minute dust-like matrix stone debris that did not warrant laser treatment. I did not see any evidence of stone debris warranting laser lithotripsy. What appears on CT is most likely the matrix stone debris consistent with UTI, pyelonephritis. I surveyed the collecting system, which demonstrated no further stone nidus of concern. The ureter was surveyed, which demonstrated no evidence of ureteral mucosa trauma. The navigator was completely removed and a new stent 6 x 24 passed without difficulty. Bladder was emptied, and she tolerated the procedure well. She was provided antibiotic therapy until followup appointment for cysto stent pull, ciprofloxacin for course of 14 days given her history of UTI, Colace , p.r.n. Azo, oxybutynin 10 mg one p.o. daily #20 for bladder spasms. She will come to my office next for cysto stent pull and stent pull. Job ID: [id number] MTDD
[2018-07-12] MEDS ORDERED: Lidocaine 1% PF 5 ML VIAL ONE (16:46)
[2018-07-12] MEDS ORDERED: Ondansetron PF 4 MG/2 ML Vial ONE (16:46)
[2018-07-12] MEDS ORDERED: Glycopyrrolate 0.2 MG/ML 5 ML SYRINGE ONE (16:46)
[2018-07-12] MEDS ORDERED: PROPOFOL 200 MG/20 ML VIAL ONE (16:46)
[2018-07-12] MEDS ORDERED: Rocuronium Bromide 10 MG/ML (10ML VIAL) ONE (16:46)
--- NOTE | 2018-07-13 07:33 | RAD ---
TWO VIEWS ABDOMEN: HISTORY: Left-sided retrograde evaluation. FINDINGS: Two intraoperative radiographs of the abdomen obtained. There is catheterization and injection of the left ureter. A left-sided intraoperative wire is seen. No significant obstruction seen. IMPRESSION: Intraoperative retrograde evaluation left kidney. Transcribed Date/Time: 07/13/2018 8:37 AM
[2018-07-16 09:16] LABS: Color Tan (.); Comment Comment: (.); Comment Note: (.); Stone Weight 98.2 mg (.)
== END 2018-07-12 13:10 | disposition home or self-care (01) ==
LOC: SDC 06:33
PROVIDERS: ATTEND Urology
PROC: 0T778DZ Dilation of Left Ureter with Intraluminal Device, Via Natural or Artificial Opening Endoscopic (ICD-10-PCS; principal; 2018-07-12)
PROC: 0TC78ZZ Extirpation of Matter from Left Ureter, Via Natural or Artificial Opening Endoscopic (ICD-10-PCS; principal; 2018-07-12)
PROC: 0TF48ZZ Fragmentation in Left Kidney Pelvis, Via Natural or Artificial Opening Endoscopic (ICD-10-PCS; principal; 2018-07-12)
DX: N20.0 Calculus of kidney (principal); E11.9 Type 2 diabetes mellitus without complications; I10 Essential (primary) hypertension; F31.9 Bipolar disorder, unspecified; G47.30 Sleep apnea, unspecified; K21.9 Gastro-esophageal reflux disease without esophagitis; E78.00 Pure hypercholesterolemia, unspecified; F17.210 Nicotine dependence, cigarettes, uncomplicated; K50.90 Crohn's disease, unspecified, without complications; Z79.51 Long term (current) use of inhaled steroids; Z79.4 Long term (current) use of insulin; Z79.899 Other long term (current) drug therapy; Z98.890 Other specified postprocedural states
CPT/HCPCS: 74018; 74420; 82365; 88300; C1758; C1769; J2001; J2250; J2405; J2543; J2704; J3010; J3490; Q9961

== ENCOUNTER 2018-07-27 09:03 | Outpatient (CLI) | payer OTHER ==
--- NOTE | 2018-07-27 22:29 | MMO ---
Bilateral MAMMO Bilat Screen DDI. CLINICAL HISTORY: Patient is 62 years old and is seen for screening. The patient has no family history of breast cancer. The patient has no personal history of cancer. VIEWS: The views performed were: bilateral craniocaudal and bilateral mediolateral oblique. FILMS COMPARED: The present examination has been compared to prior imaging studies performed at [facility] on 08/05/2006, 08/30/2007, 09/06/2007, 05/18/2015 and 06/24/2016. This study has been interpreted with the assistance of computer-aided detection. MAMMOGRAM FINDINGS: There are scattered fibroglandular densities. There are no suspicious masses, suspicious calcifications, or new areas of architectural distortion. There are no significant changes from the prior study. IMPRESSION: THERE IS NO MAMMOGRAPHIC EVIDENCE OF MALIGNANCY. A ROUTINE FOLLOW-UP MAMMOGRAM IN 1 YEAR IS RECOMMENDED. ACR BI-RADS Category 1 - Negative MAMMOGRAPHY NOTE: 1. A negative mammogram report should not delay a biopsy if a dominant of clinically suspicious mass is present. 2. Approximately 10% to 15% of breast cancers are not detected by mammography. 3. Adenosis and dense breasts may obscure an underlying neoplasm.
== END 2018-07-27 09:04 | disposition home or self-care (01) ==
LOC: SCSMAMMO 09:03
PROVIDERS: ATTEND Family Medicine
DX: Z12.31 Encounter for screening mammogram for malignant neoplasm of breast (principal)
CPT/HCPCS: 77067

== ENCOUNTER 2018-08-24 08:58 | Day surgery (SDC) | payer OTHER ==
[~2018-08-24 08:58] MED LIST changes: +Acetaminophen 500 MG TAB PO SCH; -INFLIXIMAB DYYB IV SCH; +INFLIXIMAB-DYYB 800 MG in Sodium Chloride 0.9% 250 ML 170 ML IV SCH; -SODIUM CHLORIDE 0.9% IV SCH; +diphenhydrAMINE 25 MG CAP PO SCH
[2018-08-24] MEDS ORDERED: Sodium Chloride 0.9% 20 ML ONE (09:34)
[2018-08-24] MEDS ORDERED: diphenhydrAMINE 25 MG CAP PO SCH (10:00)
[2018-08-24] MEDS ORDERED: cloNIDine 0.1 MG TAB PO SCH (10:15)
[2018-08-24 10:18] VITALS: BP 196/114; TEMP 98.4
== END 2018-08-24 13:34 | disposition home or self-care (01) ==
LOC: ONC/OP 08:58
PROVIDERS: ATTEND Internal Medicine Gastroenterology
DX: K50.10 Crohn's disease of large intestine without complications (principal)
CPT/HCPCS: 96413; 96415; J1642; J7050; Q0163; Q5103

== ENCOUNTER 2018-10-17 18:21 | Inpatient (IN) | payer OTHER ==
[2018-10-17 18:44] LABS: #Eosinphils 0.2 thou/uL (0.0-0.7); #Lymphocytes 1.9 thou/uL (1.20-3.40); #Monocytes 0.6 thou/uL (0.11-0.59); #Neutrophils 6.7 thou/uL (1.40-6.50); %Basophils 0.4 % (0.0-1.0); %Eosinophils 2.5 % (0.0-10.0); %Lymphocytes 19.7 % (21.0-51.0); %Monocytes 6.3 % (0.0-10.0); %Neutrophils 71.1 % (42.0-75.0); Hemoglobin 15.4 g/dL (12.0-16.0); Mean Corpuscular HGB CONC 34.7 g/dL (32.0-36.0); Mean Corpuscular Hemoglobin 31.5 pg (27.0-31.0); Mean Corpuscular Volume 90.8 fL (78.0-98.0); Mean Platelet Volume 7.8 fL (7.4-10.4); Platelet Count 261 thou/uL (130-400); RBC Distribution Width 16.8 % (11.5-14.5); Red Blood Cell (RBC) Count 4.88 mill/uL (4.20-5.40); White Blood Cell (WBC) Count 9.4 thou/uL (4.8-10.8)
[2018-10-17 19:08] LABS: ALT (SGPT) 14 U/L (8-55); AST (SGOT) 19 U/L (5-34); Albumin 4.1 g/dL (3.4-4.8); Alkaline Phosphatase 151 U/L (40-150); Anion Gap 15 mmol/L (10-20); BUN (Urea Nitrogen) 28 mg/dL (9.8-20.1); Bilirubin, Total 0.3 mg/dL (0.2-1.2); Calc. Creatinine Clearance 0 mL/min (70-130); Calcium 9.7 mg/dL (7.8-10.44); Carbon Dioxide 23 mmol/L (23-31); Chloride 104 mmol/L (98-107); Estimated GFR-MDRD 29; Globulin 4.5 g/dL (2.4-3.5); Glucose 123 mg/dL (80-115); Lipase 13 U/L (8-78); Potassium 3.9 mmol/L (3.5-5.1); Protein, Total 8.6 g/dL (6.0-8.3); Sodium 138 mmol/L (136-145)
[2018-10-17] MEDS ORDERED: Morphine 4 MG/ML VIAL ONE ×2 (19:44→20:38)
[2018-10-17] MEDS ORDERED: Ondansetron PF 4 MG/2 ML Vial ONE ×2 (19:44→20:38)
[2018-10-17 20:01] LABS: Bilirubin Negative (Negative); Blood, Urine Negative (Negative); Clarity Clear (Clear); Glucose, Urine (Dipstick) Normal (Negative); Leukocyte Negative Leu/uL (Negative); Nitrite Negative (Negative); Protein, Urine (Dipstick) Negative (Neg-Trace); Urobilinogen Normal mg/dL (Less than 2)
--- NOTE | 2018-10-17 20:31 | CT ---
EXAM: ABDOMEN AND PELVIC CT SCAN WITHOUT IV CONTRAST: History: Pain. FINDINGS: Visualized lungs are unremarkable. Status post cholecystectomy. The liver, pancreas, spleen, adrenal glands are unremarkable. Both kidneys are somewhat small with multiple low density foci, probably cys ts, without evidence for renal calculus or acute obstruction. Abnormally dilated fluid and air veronica led stomach, duodenum, and jejunum to the region of the mid small bowel where there is an abrupt motley sition to nondilated small bowel, evidence for a mid to high grade small bowel obstruction. There are some post-surgical anastomotic changes within the more distal small bowel. Borderline distended urin adilene bladder. No free intraperitoneal fluid. No abscess or abnormal adenopathy. IMPRESSION: Evidence for small bowel obstruction, probably at the mid small bowel level with dilated stomach, duo denum and jejunum and possibly some proximal ileum. Post-operative changes. Somewhat small kidneys bi laterally without renal calculi or acute obstruction with probable bilateral renal cysts. POS: [facility]
[2018-10-17] MEDS ORDERED: cloNIDine 0.1 MG TAB ONE (20:43)
[2018-10-17] MEDS ORDERED: hydrALAZINE 20 MG/ML VIAL ONE (21:35)
[2018-10-18] MEDS ORDERED: hydrALAZINE 20 MG/ML VIAL SLOW IVP PRN (00:46)
[2018-10-18] MEDS ORDERED: Ondansetron ODT 4 MG TAB SL PRN (00:47)
[2018-10-18] MEDS ORDERED: Ondansetron PF 4 MG/2 ML Vial IVP PRN (00:47)
[2018-10-18] MEDS: Morphine 2 MG/ML SYRINGE SLOW IVP PRN ×4 (01:47→20:37)
[2018-10-18 05:11] LABS: %Lymphocytes 31.1 % (21.0-51.0); %Neutrophils 56.8 % (42.0-75.0); Hemoglobin 14.7 g/dL (12.0-16.0); Mean Corpuscular HGB CONC 33.8 g/dL (32.0-36.0); Mean Corpuscular Hemoglobin 31.1 pg (27.0-31.0); Platelet Count 272 thou/uL (130-400); RBC Distribution Width 16.8 % (11.5-14.5); Red Blood Cell (RBC) Count 4.72 mill/uL (4.20-5.40); White Blood Cell (WBC) Count 7.5 thou/uL (4.8-10.8)
[2018-10-18 05:12] LABS: #Eosinphils 0.2 thou/uL (0.0-0.7); #Lymphocytes 2.3 thou/uL (1.20-3.40); #Monocytes 0.7 thou/uL (0.11-0.59); #Neutrophils 4.3 thou/uL (1.40-6.50); %Basophils 0.6 % (0.0-1.0); %Eosinophils 2.9 % (0.0-10.0); %Monocytes 8.6 % (0.0-10.0)
[2018-10-18 05:32] LABS: Anion Gap 14 mmol/L (10-20); BUN (Urea Nitrogen) 22 mg/dL (9.8-20.1); Calc. Creatinine Clearance 48 mL/min (70-130); Calcium 9.1 mg/dL (7.8-10.44); Carbon Dioxide 26 mmol/L (23-31); Chloride 106 mmol/L (98-107); Estimated GFR-MDRD 37; Glucose 105 mg/dL (80-115); Potassium 3.8 mmol/L (3.5-5.1); Sodium 142 mmol/L (136-145)
[2018-10-18] MEDS: Sodium Chloride 0.9% 1,000 ML IV SCH ×2 (06:18→13:37)
[2018-10-18] MEDS: hydrALAZINE 20 MG/ML VIAL SLOW IVP PRN ×2 (08:24→20:36)
[2018-10-18] MEDS ORDERED: Dextrose 50% Abboject 50 ML SYRINGE SLOW IVP PRN (09:44)
[2018-10-18] MEDS ORDERED: HumaLOG 300 UNITS/3 ML VIAL SC PRN (09:44)
[2018-10-18] MEDS ORDERED: Dextrose 5% in Water 1,000 ML IV PRN (09:44)
[2018-10-18] MEDS ORDERED: Bisacodyl 10 MG SUPP PR SCH (09:45)
--- NOTE | 2018-10-18 12:14 | HP ---
PRIMARY CARE PHYSICIAN: Dr. Crys Andrade. CHIEF COMPLAINT: Abdominal pain. HISTORY OF PRESENT ILLNESS: A 63-year-old female with known history of Crohn disease, chronic constipation, type-2 diabetes, and hypertension, admitted with acute onset of abdominal pain associated with nausea. The patient reportedly developed acute abdominal pain on the day of presentation, which progressively worsened, that extended presentation to the ER. She admitted to nausea, but denied vomiting. The patient with chronic constipation, has not had a bowel movement for 4 days prior to presentation. She denied fever, cough, worsening shortness of breath, or leg swelling. She also denied dysuria, hematuria, hematemesis. Evaluation in the ER with CT scan of the abdomen and pelvis without contrast showed evidence of small bowel obstruction, hence the patient was admitted for further evaluation. Since presentation, the patient was started on gastric decompression with nasogastric tube connected to low intermittent suction. She however continued to complain of abdominal pain. She reported that her pain prior to presentation was 10/10 and currently still 10/10. She denied dizziness, headache, or focal weakness. PAST MEDICAL HISTORY: 1. Hypertension. 2. Type-2 diabetes mellitus. 3. Obstructive sleep apnea. The patient was started on CPAP, but due to noncompliance, machine was returned. 4. Crohn disease. 5. Gastroesophageal reflux disease. 6. Pancreatitis. 7. CKD stage 3. 8. Nephrolithiasis, status post stent placement in June 2018. PAST SURGICAL HISTORY: 1. Ureteral stent placement with lithotripsy. 2. Abdominal surgery for prior small bowel obstruction. 3. Partial intestinal resection. 4. Appendectomy. 5. Cholecystectomy. 6. Hysterectomy. FAMILY HISTORY: Reviewed, but noncontributory. SOCIAL HISTORY: Lives at home with family. The patient is a smoker. Denied alcohol or recreational drug use. ALLERGIES: NONE. HOME MEDICATIONS: 1. Lipitor 40 mg p.o. daily. 2. Rexulti 2 mg p.o. daily. 3. Calcitriol 0.5 mcg p.o. b.i.d. 4. Coreg 25 mg p.o. b.i.d. 5. Clonidine 0.2 mg p.o. b.i.d. 6. Dexilant 30 mg p.o. daily. 7. Fluoxetine 60 mg p.o. daily. 8. Gabapentin 300 mg p.o. b.i.d. 9. Hydralazine 100 mg p.o. t.i.d. 10. Levemir 16 units subcutaneously b.i.d. 11. Levothyroxine 100 mcg p.o. daily. 12. Losartan 100 mg p.o. daily. 13. Amitiza p.o. b.i.d. with meals. 14. Nifedipine ER 60 mg p.o. daily. 15. Potassium chloride 10 mEq p.o. b.i.d. 16. Seroquel 200 mg p.o. daily at bedtime. 17. Demadex 100 mg p.o. daily. 18. Symbicort 1 puff inhalation daily p.r.n. REVIEW OF SYSTEMS: A 12-point review of system performed was negative other than pertinent positives and negatives included in the history of present illness. PHYSICAL EXAMINATION: VITAL SIGNS: Current vitals showed temperature 98.3, pulse 99, respiratory rate 20, SpO2 of 96% on 2 L nasal cannula, blood pressure is 189/111. GENERAL: Middle-aged female, in no obvious distress. Afebrile. Anicteric. Acyanotic. HEENT: Normocephalic, atraumatic. NG tube is in place, connected to low intermittent suction. Oral mucosa is moist. NECK: Supple, nontender, nondistended with full range of motion. No lymphadenopathy or masses appreciated. CARDIOVASCULAR: Regular rhythm and rate with soft systolic murmur. RESPIRATORY: Fair air entry bilaterally with few transmitted sounds. No obvious rhonchi are appreciated. GI: Obese, soft, nondistended with mild tenderness. Bowel sound is mildly hyperactive. EXTREMITIES: Grossly normal looking, atraumatic with no obvious edema or erythema. Distal pulses are palpable. NEUROLOGIC: Conscious, alert, oriented x3 with appropriate mental status. Cranial nerves 2 through 12 are grossly intact. The patient moves all extremities. DIAGNOSTIC DATA: CBC today showed WBC count of 7.5, hemoglobin of 14.7, MCV of 92, platelet of 272. Of note, CBC on October 17 showed WBC of 9.4, hemoglobin of 15.4, and platelet of 261. BMP today showed sodium 142, potassium 3.8, chloride 106, CO2 of 26, BUN 22, creatinine 1.68, glucose 105, calcium 9.1. CMP performed on October 17 showed sodium 138, potassium 3.9, chloride 104, CO2 is 23, BUN 28, creatinine 2.07, glucose 123, calcium 9.7, total bilirubin 0.3, AST 19, ALT 14, alkaline phosphatase 151, serum total protein 8.6, albumin 4.1, globulin 4.5. Lipase is 13. Urine performed on presentation on October 17, 2018, showed clear, colorless urine with pH of 5.0, specific gravity of 1.006. Protein, glucose, ketone, blood, nitrite, bilirubin, and leukocyte esterase were all negative. CT scan of the abdomen and pelvis without contrast showed abnormally dilated fluid and air-filled stomach, duodenum, and jejunum to the region of the mid small bowel, where there is an abrupt transition to nondilated small bowel evidence for a mid to high grade small bowel obstruction. There are some postsurgical anastomotic changes within the more distal small bowel. Borderline distention of the urinary bladder were also noted, but there was no free air, abscess, or adenopathy. Liver, pancreas, spleen, adrenals are unremarkable. Both kidneys are noted to be somewhat small with multiple low density foci probably cyst without evidence for renal calculus or acute obstruction. ASSESSMENT: 1. Small bowel obstruction. 2. Acute abdominal pain: Due to small bowel obstruction. 3. Uncontrolled hypertension: Due to inability to continue oral antihypertensives. 4. Type-2 diabetes mellitus. 5. [id number] renal failure: Most likely due to hemodynamic factors related to fluid shift. Creatinine already is trending down from above 2 to 1.6. 6. Depression and anxiety. 7. Hypothyroidism. 8. Gastroesophageal reflux disease. PLAN: 1. We will continue low intermittent suction. 2. We will give the patient Dulcolax suppository, given constipation. The patient is about 5 days now without BM. She has also chronic constipation. 3. We will start IV fluid therapy with normal saline. 4. Analgesic and antiemetic as needed with morphine and IV Zosyn. 5. IV PPI will be provided. 6. Since the patient is n.p.o., we will start metoprolol 5 mg every 6 hours to prevent rebound tachycardia. The patient was on Coreg for hypertension prior to presentation. 7. We will also start hydralazine IV p.r.n. for acute elevations in blood pressure. 8. We will consider adding clonidine patch if blood pressure is not controlled with above 2 antihypertensives. 9. DVT prophylaxis with Lovenox will be provided. 10. Diet: N.p.o. to continue. 11. Code status: Full. The patient's son is the surrogate decision maker. 12. We will monitor renal function. 13. Surgery consult has been requested. 14. We will also start sliding scale insulin. We will however hold long-acting insulin as the patient is n.p.o. currently. Job ID: [id number]
[2018-10-18] MEDS: Metoprolol Tartrate 5 MG/5 ML VIAL IVP SCH ×2 (12:16→16:41)
--- NOTE | 2018-10-18 13:19 | RAD ---
Abdomen one view HISTORY: Nasogastric tube placement. COMPARISON: 10/17/2018 CT exam. FINDINGS: Gas and stool over the colon and small bowel. Nasogastric tube descends to the left upper q uadrant of the abdomen. Nasogastric tube at the level of the GE junction. Metallic clips over the gallbladder fossa and right lower quadrant. IMPRESSION: Nasogastric tube should probably be advanced approximately 10 cm for better positioning.
[2018-10-18] MEDS ORDERED: Pantoprazole 40 MG VIAL IVP SCH (14:00)
[2018-10-18] MEDS: Ondansetron PF 4 MG/2 ML Vial IVP PRN (14:44)
[2018-10-18] MEDS: Acetaminophen 1,000 MG in Premix Bag 1 BAG IVPB PRN (15:30)
[2018-10-18] MEDS: Labetalol HCl 100 MG/20 ML VIAL SLOW IVP PRN (17:44)
[2018-10-19] MEDS: Metoprolol Tartrate 5 MG/5 ML VIAL IVP SCH ×2 (00:16→06:18)
[2018-10-19] MEDS: Acetaminophen 1,000 MG in Premix Bag 1 BAG IVPB PRN ×2 (00:17→07:59)
[2018-10-19] MEDS: Sodium Chloride 0.9% 1,000 ML IV SCH ×2 (00:59→08:12)
[2018-10-19] MEDS: Labetalol HCl 100 MG/20 ML VIAL SLOW IVP PRN ×3 (00:59→08:05)
[2018-10-19] MEDS ORDERED: cloNIDine 0.1mg/24 Hour PATCH TD SCH (02:00)
[2018-10-19] MEDS: Morphine 2 MG/ML SYRINGE SLOW IVP PRN ×2 (02:31→07:42)
--- NOTE | 2018-10-19 04:41 | CON ---
DATE OF CONSULTATION: REASON FOR CONSULT: small-bowel obstruction. HISTORY OF PRESENT ILLNESS: Ms. Mosqueda is the patient known to me from previous admission. She has a history of Crohn disease and multiple abdominal surgeries including most recently a hand-assisted laparoscopic small bowel resection for small bowel obstruction in 2017. Her Crohn's is under good control. By her report, she continues to see Dr. Mansfield for this. She states that she developed abdominal pain and nausea on Thursday and came in late Thursday night to the emergency room where she was discovered to have a recurrent small-bowel obstruction. An NG tube was placed and she was admitted to the floor. However, when I saw her, her abdominal pain had really improved nor has her nausea. I ordered a KUB which showed that the NG tube was near the GE junction, so this was advanced with improved return of gastric contents. The patient had began to pass gas when I saw her this afternoon, since then her pain has continued to slowly decline. She has had issues with high blood pressure since her admission, which is being managed by the medical service. PAST MEDICAL HISTORY: Crohn's disease and hypertension. Diabetes and GERD. Chronic kidney disease and obstructive sleep apnea. Kidney stones. PAST SURGICAL HISTORY: Hysterectomy, appendectomy, cholecystectomy many years ago. Laparoscopic hand-assisted small bowel resection in 2017. Ureteral stent placement and lithotripsy more recently. FAMILY HISTORY: Noncontributory. SOCIAL HISTORY: Currently smoking, but no alcohol or drug use. MEDICATIONS: Reviewed, as per MAR. She is on 5 blood pressure medications at baseline including clonidine, and also Rexulti and Dexilant. ALLERGIES: None REVIEW OF SYSTEMS: 10 system review of systems is negative except per history of present illness. PHYSICAL EXAMINATION: VITAL SIGNS: The patient is hypertensive, but other vital signs are normal. GENERAL: Reveals a pleasant appearing woman in no acute distress. She indicates that her pain is worse in the left upper quadrant. HEENT: Unremarkable. NECK: Supple without lymphadenopathy or thyroid nodules. HEART: Regular in its rate and rhythm without murmurs, rubs, or gallops. LUNGS: Clear to auscultation bilaterally. Bowel sounds are present. ABDOMEN: Soft and nondistended. No palpable masses or hernias. She is tender to palpation in the left upper quadrant. Does not exhibit rigidity, rebound, or guarding. She is audibly passing gas during her exam. EXTREMITIES: Warm and well perfused without significant edema. NEUROLOGIC: No focal deficits. PSYCHIATRIC: Alert, oriented, and appropriate. LABORATORY DATA: White count is normal. BUN and creatinine are elevated, but creatinine has come down somewhat since admission to 1.68, at admission was over 2. CT images are reviewed and I agree with the written report. She appears to have a transition point in the mid small bowel with decompressed distal loops. I do not see any swirling of the mesentery and she has a large amount of stool in the colon. ASSESSMENT: Small bowel obstruction, clinically improving with conservative management. PLAN: Continue NG decompression and bowel rest. NG tube has been advanced. Management of medical issues per hospitalists. If symptoms worsen or if the obstruction does not resolve, then repeat surgery may be necessary. Job ID: [id number] [facility]ITALHenrik
[2018-10-19 06:56] LABS: #Eosinphils 0.1 thou/uL (0.0-0.7); #Lymphocytes 1.4 thou/uL (1.20-3.40); #Monocytes 0.4 thou/uL (0.11-0.59); #Neutrophils 3.6 thou/uL (1.40-6.50); %Basophils 0.4 % (0.0-1.0); %Eosinophils 2.3 % (0.0-10.0); %Lymphocytes 25.9 % (21.0-51.0); %Monocytes 7.7 % (0.0-10.0); %Neutrophils 63.7 % (42.0-75.0); Hemoglobin 14.8 g/dL (12.0-16.0); Mean Corpuscular HGB CONC 32.7 g/dL (32.0-36.0); Mean Corpuscular Hemoglobin 30.1 pg (27.0-31.0); Mean Platelet Volume 7.8 fL (7.4-10.4); Platelet Count 244 thou/uL (130-400); RBC Distribution Width 16.6 % (11.5-14.5); Red Blood Cell (RBC) Count 4.92 mill/uL (4.20-5.40); White Blood Cell (WBC) Count 5.6 thou/uL (4.8-10.8)
[2018-10-19] MEDS ORDERED: cloNIDine 0.1 MG TAB PER TUBE PRN ×2 (07:11→08:51)
[2018-10-19 07:19] LABS: ALT (SGPT) 12 U/L (8-55); AST (SGOT) 18 U/L (5-34); Albumin 3.9 g/dL (3.4-4.8); Alkaline Phosphatase 143 U/L (40-150); Anion Gap 17 mmol/L (10-20); BUN (Urea Nitrogen) 14 mg/dL (9.8-20.1); Bilirubin, Total 0.3 mg/dL (0.2-1.2); Calc. Creatinine Clearance 60 mL/min (70-130); Calcium 9.9 mg/dL (7.8-10.44); Carbon Dioxide 23 mmol/L (23-31); Chloride 107 mmol/L (98-107); Estimated GFR-MDRD 48; Globulin 4.4 g/dL (2.4-3.5); Glucose 121 mg/dL (80-115); Potassium 3.5 mmol/L (3.5-5.1); Protein, Total 8.3 g/dL (6.0-8.3); Sodium 143 mmol/L (136-145)
--- NOTE | 2018-10-19 07:39 | RAD ---
EXAM: XR Abdomen 1 View/KUB PROVIDED CLINICAL HISTORY: Nasogastric tube placement evaluation COMPARISON: 10/18/2018 FINDINGS: The nasogastric tube has been advanced with the tip now overlying the expected location of the antrum or pylorus of the stomach. Surgical clips again overlie the right abdomen. Bowel gas pattern is overall nonspecific. No other interval change. IMPRESSION: Interval advancement of the nasogastric tube with the tip now overlying the expected location of the gastric antrum or pylorus.
[2018-10-19] MEDS: Pantoprazole 40 MG VIAL IVP SCH (07:46)
[2018-10-19] MEDS: Enoxaparin Sodium 30 MG/0.3 ML SYRINGE SC SCH (08:12)
[2018-10-19] MEDS: Ondansetron PF 4 MG/2 ML Vial IVP PRN (08:12)
[2018-10-19] MEDS ORDERED: cloNIDine 0.2mg/24 Hour PATCH TD SCH (09:00)
[2018-10-19] MEDS ORDERED: Amlodipine 10 MG TAB PO SCH (09:00)
[2018-10-19] MEDS ORDERED: cloNIDine 0.2 MG TAB PER TUBE SCH (09:00)
[2018-10-19] MEDS: Carvedilol 25 MG TAB PER TUBE SCH ×2 (09:09→22:07)
[2018-10-19] MEDS: hydrALAZINE 20 MG/ML VIAL SLOW IVP PRN ×2 (10:58→13:05)
[2018-10-19] MEDS ORDERED: niCARdipine 25 MG in Sodium Chloride 0.9% 250 ML 250 ML IVPB SCH (11:00)
--- NOTE | 2018-10-19 12:01 | PDOC.PULCN ---
Pulmonology Consult: HPI - Date of Consult Date: 10/19/18 Time: 11:57 - Consult Details Reason for Consult: ICU admission Requesting Physician: Dr. Prabhakar - History of Present Illness HPI: OFELIA ROTHMAN is a 63 year-old F who initially presented to the ED with abdominal pain, having not had a bowel movement in 5 days. It was determined that an SBO was present and has thus far been managed successfully in a conservative manner. Her BP has difficult to control despite multiple IV medications and resuming home meds. It was determined that she needed to be transferred to CCU for additional anti-hypertensive therapy. Currently she reports a headache and blurry vision. She denies chest or abdominal pain, SOB, weakness or paresthesias. upon initial presentation to the CCU she was reported to be aphasic, on my examination she is answering questions without slurring of her speech, although at time she seems to be unable to answer, or answers inappropriately. Pulmonology Consult: ROS - Review of Systems All systems: reviewed and no additional remarkable complaints except as stated Pulmonology Consult: PMH Source: other Past Medical History: HTN, DMII, JOSE, Crohns with recurrent SBO and small bowel resection - Social History Smoking Status: Current every day smoker Alcohol Use: none Drug Use History: none Living Situation: with family/parents Pulmonology Consult: Meds - Medications MAR Reviewed: Yes Medications: Current Medications Carvedilol (Coreg) 25 mg PER TUBE BID [facility] Last Admin: 10/19/18 09:09 Dose: 25 mg Clonidine (Vovrdgha-Egn-4) 0.2 mg TD Q7DAYS [facility] Last Admin: 10/19/18 07:40 Dose: 0.2 mg Dextrose/Water (Dextrose 50%) 25 gm SLOW IVP PRN PRN PRN Reason: Hypoglycemia Enoxaparin Sodium (Lovenox) 30 mg SC 0900 [facility] Last Admin: 10/19/18 08:12 Dose: 30 mg Glucagon (Glucagon) 1 mg IM PRN PRN PRN Reason: Hypoglycemia Hydralazine HCl (Apresoline) 10 mg SLOW IVP Q4H PRN PRN Reason: SBP>160/100 Last Admin: 10/19/18 10:58 Dose: 10 mg Sodium Chloride (Normal Saline 0.9%) 1,000 mls @ 100 mls/hr IV .Q10H [facility] Last Admin: 10/19/18 08:12 Dose: 1,000 mls Dextrose/Water (D5w) 1,000 mls @ 0 mls/hr IV .Q0M PRN PRN Reason: Hypoglycemia Acetaminophen 1,000 mg/ Device 100 mls @ 400 mls/hr IVPB Q6H PRN PRN Reason: Severe Pain (7-10) Stop: 10/19/18 13:45 Last Admin: 10/19/18 07:59 Dose: 100 mls Nicardipine HCl 25 mg/ Sodium (Chloride) 260 mls @ 0 mls/hr IVPB INF JOSSY; Protocol Insulin Human Lispro (Humalog) 0 units SC .MILD SLIDING SCALE PRN PRN Reason: Mild Correctional Scale Labetalol HCl (Normodyne) 20 mg SLOW IVP Q4H PRN PRN Reason: SBP Greater Than 180 Last Admin: 10/19/18 08:05 Dose: 20 mg Morphine Sulfate (Morphine) 2 mg SLOW IVP Q4H PRN PRN Reason: Moderate Pain (4-6) Last Admin: 10/19/18 07:42 Dose: 2 mg Ondansetron HCl (Zofran) 4 mg IVP Q6H PRN PRN Reason: Nausea/Vomiting Last Admin: 10/19/18 08:12 Dose: 4 mg Pantoprazole Sodium (Protonix) 40 mg IVP DAILY [facility] Last Admin: 10/19/18 07:46 Dose: 40 mg - Allergies Allergies/Adverse Reactions: Allergies Allergy/AdvReac Type Severity Reaction Status Date / Time No Known Drug Allergies Allergy Verified 10/18/18 01:01 Pulmonology Consult: PE - Physical Exam Constitutional: NAD HEENT: moist MMs Neck: no JVD, full ROM Cardiovascular: RRR Deviation from normal: adithya Respiratory: clear to auscultation anteriorly Gastrointestinal: soft, positive bowel sounds Deviation from normal: ttp Musculoskeletal: no edema, pulses present Neurological: non-focal, normal sensation, moves all 4 limbs Deviation from normal: mild asterixis Psychiatric: normal affect, A&O x 3 Skin: no rash Pulmonology Consult: Results - Labs Result Diagrams: 10/24/18 05:01 10/25/18 06:38 Pulmonology Consult: A/P - Problem (1) Hypertensive emergency Current Visit: Yes Code(s): I16.1 - HYPERTENSIVE EMERGENCY Status: Acute (2) SBO (small bowel obstruction) Current Visit: No Code(s): K56.69 - OTHER INTESTINAL OBSTRUCTION * DO NOT USE * Status: Acute (3) Crohns disease Current Visit: No Code(s): K50.90 - CROHN'S DISEASE, UNSPECIFIED, WITHOUT COMPLICATIONS Status: Chronic Qualifiers: Gastrointestinal tract location: unspecified location Digestive disease complication type: unspecified complication Qualified Code(s): K50.919 - Crohn 's disease, unspecified, with unspecified complications (4) Hypertension Current Visit: No Code(s): I10 - ESSENTIAL (PRIMARY) HYPERTENSION Status: Chronic Qualifiers: Hypertension type: essential hypertension Qualified Code(s): I10 - Essential (primary) hypertension (5) Acute encephalopathy Current Visit: No Code(s): G93.40 - ENCEPHALOPATHY, UNSPECIFIED Status: Resolved - Time Time: 50% of the time was spent in coordination of care (as documented) at patient's floor/unit and/or counseling patient. Time with Patient: greater than 70 minutes - Plan Plan: HTN emergency - BPs>180/110 with reported headache and visual disturbance, aphasia resolved - cardene drip ordered, titrate to BP<180/110 Acute encephalopathy - 2/2 htn vs opiates - hold morphine - consider CT brain if worsening or not improving hx of JOSE - has refused CPAP in the past - consider ABG if mental status declines SBO - BM today, mgmt per primary team/surgery Crohns disease - follows outpt with Dr. Mansfield - reportedly well controlled on current regimen dispo: htn mgmt in ccu, pending clinical course Addendum - Attending - Attending Attestation Date/Time: 10/25/18 [id number] I personally evaluated the patient and discussed the management with Dr. De Jesus. I agree with the History, Examination, Assessment and Plan documented above with any addition or exceptions noted below. 70 minutes have been devoted to this patient in various activities. I personally reviewed all imaging studies and laboratory data noted within this document. For fifty percent of this time, I was interacting with the patient at the bedside or coordinating care with the care team. For the remainder of the time I was immediately available to the patient in the hospital unit.
[2018-10-19] MEDS: niCARdipine 50 MG in Sodium Chloride 0.9% 250 ML 250 ML IVPB SCH ×2 (14:00→21:20)
--- NOTE | 2018-10-19 14:48 | PDOC.HOSPP ---
- Subjective Subjective: 63 y/o female with crohns, prior SBO admitted with abdominal pain and found to have SBO. BP is up despite IV and oral antihypertensives. Patient pulled out NG tube earlier on. Reportedly passibg gas but no BM as yet. No fever. Abdominal pain has improved with analgesic. - Objective Vital Signs & Weight: Vital Signs (12 hours) Temp Pulse Resp BP BP Pulse Ox 10/19/18 11:20 97.6 F 90 20 208/104 H 93 L 10/19/18 10:58 85 230/120 H 10/19/18 09:09 85 230/120 H 10/19/18 09:08 230/120 H 10/19/18 08:05 85 227/116 H 10/19/18 07:49 98.5 F 85 18 214/127 H 98 10/19/18 05:05 95 10/19/18 04:00 98.2 F 95 17 227/116 H 96 Weight Admit Weight 198 lb 6.4 oz Weight 198 lb 6.4 oz Most Recent Monitor Data Heart Rate from ECG 97 NIBP 181/101 NIBP BP-Mean 127 Respiration from ECG 15 SpO2 97 I&O: 10/18/18 10/19/18 10/20/18 06:59 06:59 06:59 Intake Total 1885 Output Total 4650 Balance -2765 Result Diagrams: 10/19/18 06:45 10/19/18 06:45 Additional Labs: Accuchecks 10/19/18 10/19/18 10/18/18 10:46 05:51 20:34 POC Glucose 130 H 125 H 107 10/18/18 17:00 POC Glucose 107 ROS - Review of Systems All systems: All other ROS were reviewed and found negative. - Medication Medications: Active Medications Generic Name Dose Route Start Last Admin Trade Name Freq PRN Reason Stop Dose Admin Carvedilol 25 mg 10/19/18 09:00 10/19/18 09:09 Coreg PER TUBE 25 mg BID JOSSY Administration Clonidine 0.2 mg 10/19/18 09:00 10/19/18 07:40 Dhejtykk-Wnd-9 TD 0.2 mg Q7DAYS JOSSY Administration Enoxaparin Sodium 30 mg 10/19/18 09:00 10/19/18 08:12 Lovenox SC 30 mg 09 JOSSY Administration Hydralazine HCl 10 mg 10/18/18 04:42 10/19/18 10:58 Apresoline SLOW IVP 10 mg Q4H PRN Administration SBP>160/100 Sodium Chloride 1,000 mls @ 100 mls/hr 10/18/18 04:45 10/19/18 08:12 Normal Saline 0.9% IV 1,000 mls .Q10H JOSSY Administration Labetalol HCl 20 mg 10/19/18 01:56 10/19/18 08:05 Normodyne SLOW IVP 20 mg Q4H PRN Administration SBP Greater Than 180 Morphine Sulfate 2 mg 10/18/18 09:50 10/19/18 07:42 Morphine SLOW IVP 2 mg Q4H PRN Administration Moderate Pain (4-6) Ondansetron HCl 4 mg 10/18/18 13:47 10/19/18 08:12 Zofran IVP 4 mg Q6H PRN Administration Nausea/Vomiting Pantoprazole Sodium 40 mg 10/19/18 09:00 10/19/18 07:46 Protonix IVP 40 mg DAILY JOSSY Administration - Exam awake alert Eye: anicteric sclera ENT: normocephalic atraumatic Neck: supple Heart: RRR Respiratory: no wheezes, no rales, no ronchi (fair air entry with some transmitted sound bilaterally) Gastrointestinal: soft, non-distended (mild lower abdominal tenderness. BS is hypoactive) Extremities: no cyanosis, no edema Neurological: CN's grossly intact, no focal deficits Psychiatric: A&O x 3 Hosp A/P (1) SBO (small bowel obstruction) Code(s): K56.69 - OTHER INTESTINAL OBSTRUCTION * DO NOT USE * Status: Acute (2) Accelerated hypertension Code(s): I10 - ESSENTIAL (PRIMARY) HYPERTENSION Status: Acute (3) MOOK (acute kidney injury) Code(s): N17.9 - ACUTE KIDNEY FAILURE, UNSPECIFIED Status: Acute (4) Crohns disease Code(s): K50.90 - CROHN'S DISEASE, UNSPECIFIED, WITHOUT COMPLICATIONS Status: Chronic Qualifiers: Gastrointestinal tract location: unspecified location Digestive disease complication type: unspecified complication Qualified Code(s): K50.919 - Crohn 's disease, unspecified, with unspecified complications (5) DM type 2 (diabetes mellitus, type 2) Status: Chronic Qualifiers: Diabetes mellitus half-way insulin use: with half-way use Diabetes mellitus complication status: with kidney complications Diabetes mellitus complication detail: with chronic kidney disease Chronic kidney disease stage : stage 3 (moderate) Qualified Code(s): E11.22 - Type 2 diabetes mellitus with diabetic chronic kidney disease; N18.3 - Chronic kidney disease, stage 3 ( moderate); 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 Continue NG decompression. Continue IVF Replete serum potassium. Get serum magnesium and replete if indicated. Continue analgesic as needed
[2018-10-19] MEDS ORDERED: Sodium Chloride 0.9% 1,000 ML IV SCH (16:15)
--- NOTE | 2018-10-19 16:58 | PDOC.GSPN ---
Surgery Progress Note: Subj - Subjective Narrative: Patient was transferred to CCU for uncontrolled hypertension last night. Patient is smiling and appears comfortable but states that she is still having abdominal pain and nausea and that it is about the same as yesterday. She states that she is passing gas. Her relative at the bedside states that he has not witnessed this since he has been there the past couple hours. She seems a little confused, and her nurse confirms this. Her NG is out, and she states that she supposes that she pulled it out but she is not sure. Her nurse states that the NG tube was out when she arrived in CCU. Afebrile. Blood pressure is better on Cardene drip but still elevated. Other vital signs are okay. Labs are okay. She is still slightly tender to palpation in the left upper quadrant but bowel sounds sound better. She is not distended. Assessment/plan: Transfer to CT for uncontrolled hypertension which is better on a Cardene drip. Some mild confusion. Still reporting abdominal pain and nausea, so I have asked her nurse to replace the NG tube to intermittent low wall suction. Given her mental status changes, I'm not sure that she is accurately reporting passage of flatus, some going to repeat the CT the abdomen and pelvis without contrast to see how the bowel looks. I think it would also be a good idea to get a CT of her head given her confusion and uncontrolled recent hypertension. Her nurse is to call me after these are done, but clinically she does not have a surgical abdomen at this point. Surgery Progress Note: Obj - Vital signs Vital signs: Vital Signs - Most Recent Temp Pulse Resp BP Pulse Ox 97.6 F 90 20 208/104 H 93 L 10/19/18 11:20 10/19/18 11:20 10/19/18 11:20 10/19/18 11:20 10/19/18 11:20 Surgery Progress Note: Results - Labs Result Diagrams: 10/19/18 06:45 10/19/18 06:45 Lab results: Laboratory Results - last 24 hr 10/19/18 10/19/18 10/19/18 05:51 06:45 06:45 WBC 5.6 RBC 4.92 Hgb 14.8 Hct 45.3 MCV 92.0 MCH 30.1 MCHC 32.7 RDW 16.6 H Plt Count 244 MPV 7.8 Neutrophils % 63.7 Lymphocytes % 25.9 Monocytes % 7.7 Eosinophils % 2.3 Basophils % 0.4 Neutrophils # 3.6 Lymphocytes # 1.4 Monocytes # 0.4 Eosinophils # 0.1 Basophils # 0.0 Sodium 143 Potassium 3.5 Chloride 107 Carbon Dioxide 23 Anion Gap 17 BUN 14 Creatinine 1.34 H Estimated GFR (MDRD) 48 Glucose 121 H POC Glucose 125 H Calcium 9.9 Magnesium Total Bilirubin 0.3 AST 18 ALT 12 Alkaline Phosphatase 143 Serum Total Protein 8.3 Albumin 3.9 Globulin 4.4 H Albumin/Globulin Ratio 0.9 L 10/19/18 10/19/18 06:45 10:46 WBC RBC Hgb Hct MCV MCH MCHC RDW Plt Count MPV Neutrophils % Lymphocytes % Monocytes % Eosinophils % Basophils % Neutrophils # Lymphocytes # Monocytes # Eosinophils # Basophils # Sodium Potassium Chloride Carbon Dioxide Anion Gap BUN Creatinine Estimated GFR (MDRD) Glucose POC Glucose 130 H Calcium Magnesium 1.7 Total Bilirubin AST ALT Alkaline Phosphatase Serum Total Protein Albumin Globulin Albumin/Globulin Ratio
--- NOTE | 2018-10-19 17:30 | CT ---
Head CT without contrast 10/19/2018: COMPARISON: 03/20/2018 HISTORY: Altered mental status, confusion TECHNIQUE: Axial CT imaging at 5 mm intervals from vertex through skull base without contrast FINDINGS: Imaged paranasal sinuses and mastoid air cells are well aerated. No displaced calvarial fra cture. No intracranial hemorrhage, midline shift, mass effect, or ventricular enlargement. IMPRESSION: No acute findings.
--- NOTE | 2018-10-19 18:40 | CT ---
CT ABDOMEN AND PELVIS: 10/19/2018 HISTORY: Abdominal pain. COMPARISON: 10/17/2018 TECHNIQUE: Axial CT imaging obtained at 5 mm intervals, from the lung bases through the pubic symphysis, without contrast. Coronal reformatted imaging obtained. FINDINGS: The lack of contrast media limits assessment of the viscera, bowel, and vascular structures and for l ymphadenopathy. The imaged lung bases are unremarkable. Cholecystectomy clips are present. The liver, spleen, pancreas, and adrenal glands demonstrate no acute findings. The left adrenal glan d is thickened but attains an adeniform shape. The kidneys demonstrate no acute findings. No evidence for hydronephrosis is noted on either side. The CT examination performed on 10/17/2018 demonstrated numerous proximal dilated small bowel loops w ith decompressed distal small bowel loops, evidence of small bowel obstruction. On this examination, the previously noted dilated small bowel has resolved. There is no evidence for small bowel obstruction on this examination. Limited assessment of the vascular structures demonstrated scattered atherosclerotic calcification of the abdominal aorta and its branches. There is a Quevedo catheter seen within the urinary bladder. Review of the osseous structures demonstrates multilevel lower lumbar spine facet hypertrophy. No wo rrisome lytic or blastic bone lesion. IMPRESSION: The previously noted dilated small bowel has resolved. On this examination, there is no evidence for small bowel obstruction or free intraperitoneal air. POS: DEVON
[2018-10-19] MEDS: Lidocaine 5% Patch TD SCH (20:29)
[2018-10-19] MEDS: Ketorolac Tromethamine 30 MG/ML VIAL IVP PRN (22:07)
[2018-10-20] MEDS ORDERED: Ziprasidone 20 MG VIAL IM PRN (00:55)
[2018-10-20] MEDS: Labetalol HCl 100 MG/20 ML VIAL SLOW IVP PRN ×3 (03:07→13:08)
[2018-10-20] MEDS: niCARdipine 50 MG in Sodium Chloride 0.9% 250 ML 250 ML IVPB SCH ×4 (05:14→19:05)
[2018-10-20 06:18] LABS: Albumin 3.9 g/dL (3.4-4.8); Anion Gap 17 mmol/L (10-20); BUN (Urea Nitrogen) 15 mg/dL (9.8-20.1); BUN/Creatinine Ratio 11.63; Calc. Creatinine Clearance 63 mL/min (70-130); Calcium 10.4 mg/dL (7.8-10.44); Carbon Dioxide 22 mmol/L (23-31); Chloride 110 mmol/L (98-107); Estimated GFR-MDRD 50; Glucose 95 mg/dL (80-115); Magnesium 1.9 mg/dL (1.6-2.6); Phosphorus 2.3 mg/dL (2.3-4.7); Potassium 3.6 mmol/L (3.5-5.1); Sodium 145 mmol/L (136-145)
[2018-10-20] MEDS: Ketorolac Tromethamine 30 MG/ML VIAL IVP PRN (06:26)
[2018-10-20] MEDS: Carvedilol 25 MG TAB PER TUBE SCH ×2 (09:00→20:54)
[2018-10-20] MEDS: Enoxaparin Sodium 30 MG/0.3 ML SYRINGE SC SCH (09:07)
[2018-10-20] MEDS: Pantoprazole 40 MG VIAL IVP SCH (09:08)
[2018-10-20] MEDS: Lidocaine Patch Removal TOP SCH (09:09)
[2018-10-20] MEDS: hydrALAZINE 20 MG/ML VIAL SLOW IVP PRN (11:19)
[2018-10-20] MEDS: Sodium Chloride 0.9% 1,000 ML IV SCH ×2 (12:00→20:55)
--- NOTE | 2018-10-20 15:21 | PDOC.HOSPP ---
- Subjective Encounter Date: 10/20/18 Encounter Time: 13:20 Subjective: 63 y/o female with crohns, prior SBO admitted with abdominal pain and found to have SBO. BP is up despite IV and oral antihypertensives hence moved to ICU for Cardene infusion. Patient also developed some confusion. Still complaining of nausea and abdominal pain. No vomiting or BM yet. - Objective Vital Signs & Weight: Vital Signs (12 hours) Temp Pulse BP Pulse Ox 10/20/18 13:08 98 210/117 H 10/20/18 12:00 98.4 F 10/20/18 11:19 98 210/117 H 10/20/18 09:33 98 181/107 H 10/20/18 08:00 98.2 F 10/20/18 07:47 95 10/20/18 04:00 98.3 F Weight Admit Weight 198 lb 6.4 oz Weight 198 lb 6.4 oz Most Recent Monitor Data Heart Rate from ECG 101 NIBP 161/79 NIBP BP-Mean 106 Respiration from ECG 27 SpO2 93 I&O: 10/19/18 10/20/18 10/21/18 06:59 06:59 06:59 Intake Total 1885 1555 397 Output Total 4650 1600 780 Balance -2765 -45 -383 Result Diagrams: 10/19/18 06:45 10/20/18 05:35 Additional Labs: Accuchecks 10/20/18 10/20/18 10/19/18 13:04 05:37 21:09 POC Glucose 178 H 87 133 H 10/19/18 17:57 POC Glucose 138 H ROS - Medication Medications: Active Medications Generic Name Dose Route Start Last Admin Trade Name Freq PRN Reason Stop Dose Admin Carvedilol 25 mg 10/19/18 09:00 10/20/18 09:00 Coreg PER TUBE Not Given BID JOSSY Enoxaparin Sodium 30 mg 10/19/18 09:00 10/20/18 09:07 Lovenox SC 30 mg 0900 JOSSY Administration Hydralazine HCl 10 mg 10/18/18 04:42 10/20/18 11:19 Apresoline SLOW IVP 10 mg Q4H PRN Administration SBP>160/100 Nicardipine HCl 50 mg/ Sodium 270 mls @ 0 mls/hr 10/19/18 12:45 10/20/18 10: 59 Chloride IVPB 270 mls INF JOSSY Administration Protocol Titrate Sodium Chloride 1,000 mls @ 100 mls/hr 10/20/18 10:00 10/20/18 12:00 Normal Saline 0.9% IV 1,000 mls .Q10H JOSSY Administration Ketorolac Tromethamine 30 mg 10/19/18 21:56 10/20/18 06:26 Toradol IVP 30 mg Q6H PRN Administration Pain Labetalol HCl 20 mg 10/19/18 01:56 10/20/18 13:08 Normodyne SLOW IVP 20 mg Q4H PRN Administration SBP Greater Than 180 Lidocaine 1 patch 10/19/18 21:00 10/19/18 20:29 Lidoderm 5% Patch TD 1 patch HS JOSSY Administration Miscellaneous Medication 1 each 10/20/18 09:00 10/20/18 09:09 Lidocaine Patch Removal TOP 1 each QAM JOSSY Administration Ondansetron HCl 4 mg 10/18/18 13:47 10/19/18 08:12 Zofran IVP 4 mg Q6H PRN Administration Nausea/Vomiting Pantoprazole Sodium 40 mg 10/19/18 09:00 10/20/18 09:08 Protonix IVP 40 mg DAILY JOSSY Administration Ziprasidone 10 mg 10/20/18 00:55 10/20/18 01:08 Geodon IM 10/21/18 00:56 10 mg ONE PRN Administration Agitation - Exam awake alert, ill appearing Eye: anicteric sclera ENT: normocephalic atraumatic Neck: supple, no JVD Heart: RRR Respiratory: no wheezes, no rales, no ronchi, normal chest expansion Gastrointestinal: soft, non-tender, non-distended, normal bowel sounds Gastrointestinal - other findings: obese Extremities: no cyanosis Extremeties - other findings: trace feet edema Neurological: CN's grossly intact Neurological - other findings: Awake but confused Hosp A/P (1) SBO (small bowel obstruction) Code(s): K56.69 - OTHER INTESTINAL OBSTRUCTION * DO NOT USE * Status: Acute (2) Accelerated hypertension Code(s): I10 - ESSENTIAL (PRIMARY) HYPERTENSION Status: Acute (3) MOOK (acute kidney injury) Code(s): N17.9 - ACUTE KIDNEY FAILURE, UNSPECIFIED Status: Acute (4) Crohns disease Code(s): K50.90 - CROHN'S DISEASE, UNSPECIFIED, WITHOUT COMPLICATIONS Status: Chronic Qualifiers: Gastrointestinal tract location: unspecified location Digestive disease complication type: unspecified complication Qualified Code(s): K50.919 - Crohn 's disease, unspecified, with unspecified complications (5) DM type 2 (diabetes mellitus, type 2) Status: Chronic Qualifiers: 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 Diabetes mellitus complication status: with kidney complications Diabetes mellitus complication detail: with chronic kidney disease Chronic kidney disease stage : stage 3 (moderate) Qualified Code(s): E11.22 - Type 2 diabetes mellitus with diabetic chronic kidney disease; N18.3 - Chronic kidney disease, stage 3 ( moderate); 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 management of SBO and diet as per Gen surgery. Continue cardene infusion for now. Will transition to oral antihypertensives onceb patient can take by mouth' Avoid narcotic analgesic. Continue IVF.
--- NOTE | 2018-10-20 15:23 | RAD ---
GASTROGRAFIN SMALL BOWEL: Date: 10/20/18 HISTORY: Evaluate for obstruction. Crohn's disease. 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 The patient was administered Gastrografin which opacities multiple normal caliber small bowel loops. There is opacification of the right hemicolon on the 2 hour images. IMPRESSION: No evidence of high grade obstruction. POS: OFF
--- NOTE | 2018-10-20 15:52 | PRG ---
DATE OF SERVICE: 10/20/2018 SUBJECTIVE: She says she feels about the same. OBJECTIVE: VITAL SIGNS: Heart rate 100, blood pressure 161/79, now is 200 systolic when I saw her during , respiratory rate 20s. LUNGS: Clear. HEART: Regular rhythm. ABDOMEN: Soft. LABORATORY DATA: She has currently undergone Gastrografin series of small bowel films. Sodium 145, potassium 3.6, chloride 110, bicarbonate 22 , BUN 15, creatinine 1.29. IMPRESSION: Hypertension, on Cardene drip; bowel obstruction, currently being followed by surgery . Job ID: [id number]
[2018-10-20] MEDS: Lidocaine 5% Patch TD SCH (20:55)
--- NOTE | 2018-10-20 21:46 | PDOC.GSPN ---
Surgery Progress Note: Subj - Subjective Narrative: Still reports abdominal pain in left upper quadrant and nausea, but states she is passing gas. No obstruction on CT or SBFT. BP still high but other VS and labs ok. Mildly TTP LUQ, no R/R/G. A/P) SBO clinically resolved. Clears as tolerated, advance to fulls in AM. Management of HTN and confusion per hospitalist service. Per family, pt has gotten confused during past admits as well. Surgery Progress Note: Obj - Vital signs Vital signs: Vital Signs - Most Recent Temp Pulse Resp BP Pulse Ox 98.7 F 98 20 210/117 H 93 L 10/20/18 19:00 10/20/18 13:08 10/19/18 11:20 10/20/18 13:08 10/20/18 20:00 Surgery Progress Note: Results - Labs Result Diagrams: 10/19/18 06:45 10/20/18 05:35 Lab results: Laboratory Results - last 24 hr 10/20/18 10/20/18 10/20/18 13:04 18:30 21:08 POC Glucose 178 H 186 H 137 H
[2018-10-20] MEDS: Nicotine 14 MG PATCH TOP SCH (22:39)
[2018-10-21] MEDS: Labetalol HCl 100 MG/20 ML VIAL SLOW IVP PRN (02:31)
[2018-10-21] MEDS: hydrALAZINE 20 MG/ML VIAL SLOW IVP PRN (04:39)
[2018-10-21 04:45] LABS: #Lymphocytes 1.9 thou/uL (1.20-3.40); #Monocytes 0.7 thou/uL (0.11-0.59); #Neutrophils 3.6 thou/uL (1.40-6.50); %Eosinophils 0.2 % (0.0-10.0); %Lymphocytes 30.3 % (21.0-51.0); %Monocytes 11.7 % (0.0-10.0); %Neutrophils 57.8 % (42.0-75.0); Hemoglobin 13.1 g/dL (12.0-16.0); Mean Corpuscular HGB CONC 34.1 g/dL (32.0-36.0); Mean Corpuscular Hemoglobin 31.1 pg (27.0-31.0); Mean Corpuscular Volume 91.4 fL (78.0-98.0); Platelet Count 222 thou/uL (130-400); RBC Distribution Width 16.7 % (11.5-14.5); Red Blood Cell (RBC) Count 4.21 mill/uL (4.20-5.40); White Blood Cell (WBC) Count 6.2 thou/uL (4.8-10.8)
[2018-10-21 05:08] LABS: ALT (SGPT) 11 U/L (8-55); AST (SGOT) 14 U/L (5-34); Albumin 3.8 g/dL (3.4-4.8); Alkaline Phosphatase 122 U/L (40-150); Anion Gap 12 mmol/L (10-20); BUN (Urea Nitrogen) 17 mg/dL (9.8-20.1); Bilirubin, Total 0.4 mg/dL (0.2-1.2); Calc. Creatinine Clearance 56 mL/min (70-130); Calcium 9.4 mg/dL (7.8-10.44); Carbon Dioxide 27 mmol/L (23-31); Chloride 116 mmol/L (98-107); Estimated GFR-MDRD 44; Globulin 3.8 g/dL (2.4-3.5); Glucose 98 mg/dL (80-115); Protein, Total 7.6 g/dL (6.0-8.3); Sodium 152 mmol/L (136-145)
[2018-10-21 05:11] LABS: Potassium 2.8 mmol/L (3.5-5.1)
[2018-10-21] MEDS ORDERED: Potassium Chloride 20 MEQ TAB PO SCH ×3 (05:30→15:45)
[2018-10-21] MEDS: Sodium Chloride 0.9% 1,000 ML IV SCH (05:51)
[2018-10-21] MEDS: Ketorolac Tromethamine 30 MG/ML VIAL IVP PRN (05:51)
[2018-10-21] MEDS: FLUoxetine HCl 20 MG CAP PO SCH (08:21)
[2018-10-21] MEDS: NIFEdipine XL 60 MG TAB PO SCH (08:21)
[2018-10-21] MEDS: Gabapentin 300 MG CAP PO SCH ×2 (08:21→21:17)
[2018-10-21] MEDS: Enoxaparin Sodium 30 MG/0.3 ML SYRINGE SC SCH (08:26)
[2018-10-21] MEDS: Carvedilol 25 MG TAB PER TUBE SCH (08:30)
[2018-10-21] MEDS: Lidocaine Patch Removal TOP SCH (09:33)
[2018-10-21] MEDS: Pantoprazole 40 MG VIAL IVP SCH (09:36)
[2018-10-21] MEDS: Calcitriol 0.25 MCG CAP PO SCH ×2 (09:44→21:17)
[2018-10-21] MEDS: D5 1/4 NS 1,000 ML IV SCH ×2 (11:52→21:16)
[2018-10-21] MEDS ORDERED: Fleet Enema 133 ML BOT FS SCH (12:15)
--- NOTE | 2018-10-21 13:35 | RAD ---
EXAM: XR Abdomen 1 View/KUB PROVIDED CLINICAL HISTORY: Partial small bowel obstruction. COMPARISON: Small bowel study on 10/20/2018. FINDINGS: There is residual contrast seen throughout the colon. There is mild gaseous distention of loops of sm all bowel in the abdomen with greater gaseous distention of a loop of small bowel in the left lower quadrant. Surgical clips overlie the right upper and right lower quadrant. Phleboliths again overlie the pelvis . Visualized lung bases are clear.. IMPRESSION: Progression of contrast in the small bowel and into the colon with contrast seen throughout the colon extending from the cecum to the rectum. There is mild gaseous distention of a few loops of small bowel in the abdomen. Continued follow-up is indicated is recommended.
--- NOTE | 2018-10-21 14:01 | PRG ---
DATE OF SERVICE: 10/21/2018 SUBJECTIVE: Ronda Mosqueda says she is feeling better. She has no complaints. OBJECTIVE: VITAL SIGNS: Heart rate is 105, blood pressure 148/89, oximetry is 100% on room air, respiratory rates in the high teens to low 20s. LUNGS: Currently, lungs are clear. HEART: Regular rhythm. ABDOMEN: Soft. EXTREMITIES: Without edema. DIAGNOSTIC STUDIES: Abdominal films done this morning showed contrast progressing into the colon and throughout the colon, all the way to the rectum. White count 6.2, hemoglobin 13.1, platelets 222. Sodium 152, potassium 2.8, chloride 116, bicarb 27, BUN 17, creatinine 1.44. Creatinine was 2.07 on admission. IMPRESSION: 1. Transient small-bowel obstruction. 2. Hypertension. 3. Hypokalemia. 4. Hyperchloremic acidosis, it is mild. PLAN: Continue supportive care, clinically appears stable enough to move out of Critical Care Unit. Job ID: [id number]
[2018-10-21 14:27] LABS: Anion Gap 10 mmol/L (10-20); BUN (Urea Nitrogen) 15 mg/dL (9.8-20.1); Calc. Creatinine Clearance 55 mL/min (70-130); Calcium 9.1 mg/dL (7.8-10.44); Carbon Dioxide 24 mmol/L (23-31); Chloride 112 mmol/L (98-107); Estimated GFR-MDRD 43; Glucose 202 mg/dL (80-115); Potassium 3.2 mmol/L (3.5-5.1); Sodium 143 mmol/L (136-145)
--- NOTE | 2018-10-21 15:53 | PDOC.HOSPP ---
- Subjective Encounter Date: 10/21/18 Encounter Time: 13:51 Subjective: 63 y/o female with crohns, prior SBO admitted with abdominal pain and found to have SBO. BP is up despite IV and oral antihypertensives hence moved to ICU for Cardene infusion. Patient also developed some confusion. Intestinal obstruction has resolved and patient is back on clear liquid. feeling better. abdominal pain also is better. - Objective Vital Signs & Weight: Vital Signs (12 hours) Temp Pulse BP Pulse Ox 10/21/18 12:00 98.3 F 10/21/18 08:21 105 H 148/89 H 10/21/18 08:00 98.1 F 10/21/18 07:40 100 10/21/18 04:39 93 181/99 H 10/21/18 04:00 98.6 F Weight Admit Weight 198 lb 6.4 oz Weight 198 lb 6.4 oz Most Recent Monitor Data Heart Rate from ECG 86 NIBP 160/97 NIBP BP-Mean 118 Respiration from ECG 31 SpO2 100 I&O: 10/20/18 10/21/18 10/22/18 06:59 06:59 06:59 Intake Total 1555 3988 1793 Output Total 1600 2160 1060 Balance -45 1828 733 Result Diagrams: 10/21/18 04:15 10/21/18 13:58 Additional Labs: Accuchecks 10/21/18 10/20/18 10/20/18 06:00 21:08 18:30 POC Glucose 128 H 137 H 186 H ROS - Medication Medications: Active Medications Generic Name Dose Route Start Last Admin Trade Name Freq PRN Reason Stop Dose Admin Calcitriol 0.5 mcg 10/21/18 09:00 10/21/18 09:44 Rocaltrol PO 0.5 mcg BID JOSSY Administration Enoxaparin Sodium 30 mg 10/19/18 09:00 10/21/18 08:26 Lovenox SC 30 mg 0900 JOSSY Administration Fluoxetine HCl 60 mg 10/21/18 09:00 10/21/18 08:21 Prozac PO 60 mg DAILY JOSSY Administration Gabapentin 300 mg 10/21/18 09:00 10/21/18 08:21 Neurontin PO 300 mg BID JOSSY Administration Hydralazine HCl 10 mg 10/18/18 04:42 10/21/18 04:39 Apresoline SLOW IVP 10 mg Q4H PRN Administration SBP>160/100 Nicardipine HCl 50 mg/ Sodium 270 mls @ 0 mls/hr 10/19/18 12:45 10/20/18 19: 05 Chloride IVPB 270 mls INF JOSSY Administration Protocol Titrate Dextrose/Sodium Chloride 1,000 mls @ 125 mls/hr 10/21/18 08:00 10/21/18 11:52 D5 1/4 Ns IV 1,000 mls .Q8H JOSSY Administration Insulin Human Lispro 0 units 10/18/18 09:44 10/20/18 18:43 Humalog SC 2 units .MILD SLIDING SCALE PRN Administration Mild Correctional Scale Labetalol HCl 20 mg 10/19/18 01:56 10/21/18 02:31 Normodyne SLOW IVP 20 mg Q4H PRN Administration SBP Greater Than 180 Lidocaine 1 patch 10/19/18 21:00 10/20/18 20:55 Lidoderm 5% Patch TD 1 patch HS JOSSY Administration Miscellaneous Medication 1 each 10/20/18 09:00 10/21/18 09:33 Lidocaine Patch Removal TOP 1 each QAM JOSSY Administration Nicotine 14 mg 10/20/18 22:00 10/20/18 22:39 Nicoderm Patch TOP 14 mg Q24HR JOSSY Administration Nifedipine 60 mg 10/21/18 09:00 10/21/18 08:21 Procardia Xl PO 60 mg DAILY JOSSY Administration Ondansetron HCl 4 mg 10/18/18 13:47 10/19/18 08:12 Zofran IVP 4 mg Q6H PRN Administration Nausea/Vomiting Pantoprazole Sodium 40 mg 10/21/18 09:00 10/21/18 08:30 Protonix PO 40 mg DAILY JOSSY Administration Sodium Chloride 10 ml 10/20/18 21:00 10/21/18 09:30 Flush - Normal Saline IVF 10 ml Q12HR JOSSY Administration - Exam awake alert Eye: anicteric sclera ENT: normocephalic atraumatic Neck: supple, symmetric Heart: RRR Respiratory: no wheezes, no rales, no ronchi Gastrointestinal: soft, non-tender, normal bowel sounds Gastrointestinal - other findings: obese Extremities: no edema Neurological: CN's grossly intact, no focal deficits Psychiatric: A&O x 3 Hosp A/P (1) SBO (small bowel obstruction) Code(s): K56.69 - OTHER INTESTINAL OBSTRUCTION * DO NOT USE * Status: Acute (2) Accelerated hypertension Code(s): I10 - ESSENTIAL (PRIMARY) HYPERTENSION Status: Acute (3) MOOK (acute kidney injury) Code(s): N17.9 - ACUTE KIDNEY FAILURE, UNSPECIFIED Status: Acute (4) Crohns disease Code(s): K50.90 - CROHN'S DISEASE, UNSPECIFIED, WITHOUT COMPLICATIONS Status: Chronic Qualifiers: Gastrointestinal tract location: unspecified location Digestive disease complication type: unspecified complication Qualified Code(s): K50.919 - Crohn 's disease, unspecified, with unspecified complications (5) DM type 2 (diabetes mellitus, type 2) Status: Chronic Qualifiers: Diabetes mellitus buttermaker helper insulin use: with buttermaker helper use Diabetes mellitus complication status: with kidney complications Diabetes mellitus complication detail: with chronic kidney disease Chronic kidney disease stage : stage 3 (moderate) Qualified Code(s): E11.22 - Type 2 diabetes mellitus with diabetic chronic kidney disease; N18.3 - Chronic kidney disease, stage 3 ( moderate); Z79.4 - intermediate project manager (current) use of insulin (6) Diastolic heart failure Code(s): I50.30 - UNSPECIFIED DIASTOLIC (CONGESTIVE) HEART FAILURE Status: Chronic Qualifiers: Heart failure chronicity: acute on chronic Qualified Code(s): I50.33 - Acute on chronic diastolic (congestive) heart failure (7) Acute encephalopathy Code(s): G93.40 - ENCEPHALOPATHY, UNSPECIFIED Status: Resolved (8) Hypernatremia Code(s): E87.0 - HYPEROSMOLALITY AND HYPERNATREMIA Status: Acute (9) Hypokalemia Code(s): E87.6 - HYPOKALEMIA Status: Resolved - Plan Restart oral antihypertensives and wean cardene infusion. Avoid narcotic analgesic. Start D5 1/4 Ns due to hypernatremia replete serum potassium Get serum magnesium.
--- NOTE | 2018-10-21 17:00 | PDOC.GSPN ---
Surgery Progress Note: Subj - Subjective Narrative: Patient was quite drowsy when I saw her earlier today. She stated that she was feeling okay, but then stated that she was still having abdominal pain and nausea. She told me that she had bowel movements yesterday, but the nurse contradicted that, stating that they had gotten her to a bedpan several times she only passed gas. Small bowel follow-through yesterday didn't show any evidence of persistent obstruction with passage of contrast the colon by 2 hours. She does seem a little more distended today. She is minimally tender to palpation in the left upper quadrant, less so than at the time of her admission but about the same as yesterday. Her potassium was low this morning and her sodium was elevated. Her hospitalist has adjusted her IV fluids and given her oral potassium replacement. She is on a Cardene drip for her hypertension. Most of her psychiatric meds have been restarted. Assessment/plan: Small bowel obstruction, appears to be resolved on imaging but still without resumption of bowel movements. Digital rectal examination showed soft stool in the rectal vault but no impaction. I ordered a KUB which showed passage of contrast into the colon with retained contrast and fecal matter. On review of CT her sigmoid colon was decompressed there was no evidence of stricture or obstruction at that level and contrast appears to passed down to the upper rectum on KUB. I ordered some enemas to see if we can get her bowels to move. She appears to have colonic motility issues, since usually Gastrografin stimulates fairly profuse bowel movements. If her bowel movements do not resume, I may ask gastroenterology for their input. Surgery Progress Note: Obj - Vital signs Vital signs: Vital Signs - Most Recent Temp Pulse Resp BP Pulse Ox 98.3 F 105 H 20 148/89 H 100 10/21/18 12:00 10/21/18 08:21 10/19/18 11:20 10/21/18 08:21 10/21/18 07:40 Surgery Progress Note: Results - Labs Result Diagrams: 10/21/18 04:15 10/21/18 13:58 Lab results: Laboratory Results - last 24 hr 10/21/18 10/21/18 10/21/18 04:15 06:00 13:58 Sodium 152 H 143 Potassium 2.8 L* 3.2 L Chloride 116 H 112 H Carbon Dioxide 27 24 Anion Gap 12 10 BUN 17 15 Creatinine 1.44 H 1.47 H Estimated GFR (MDRD) 44 43 Glucose 98 202 H POC Glucose 128 H Calcium 9.4 9.1 Magnesium 2.0 Total Bilirubin 0.4 AST 14 ALT 11 Alkaline Phosphatase 122 Serum Total Protein 7.6 Albumin 3.8 Globulin 3.8 H Albumin/Globulin Ratio 1.0 L
[2018-10-21] MEDS: Carvedilol 25 MG TAB PO SCH (21:17)
[2018-10-21] MEDS: Atorvastatin Calcium 40 MG TAB PO SCH (21:17)
[2018-10-21] MEDS: Polyethylene Glycol 3350 17 GM Packet PO SCH (21:17)
[2018-10-21] MEDS: Nicotine 14 MG PATCH TOP SCH (21:20)
[2018-10-21] MEDS: Lidocaine 5% Patch TD SCH (21:27)
[2018-10-22] MEDS: D5 1/4 NS 1,000 ML IV SCH ×2 (00:09→06:09)
[2018-10-22 04:56] LABS: #Eosinphils 0.1 thou/uL (0.0-0.7); #Monocytes 0.7 thou/uL (0.11-0.59); %Basophils 0.2 % (0.0-1.0); %Eosinophils 1.9 % (0.0-10.0); %Lymphocytes 44.2 % (21.0-51.0); %Monocytes 9.7 % (0.0-10.0); Hemoglobin 13.2 g/dL (12.0-16.0); Mean Corpuscular HGB CONC 32.1 g/dL (32.0-36.0); Mean Corpuscular Hemoglobin 29.9 pg (27.0-31.0); Mean Corpuscular Volume 93.2 fL (78.0-98.0); Mean Platelet Volume 8.5 fL (7.4-10.4); Platelet Count 221 thou/uL (130-400); RBC Distribution Width 16.4 % (11.5-14.5); Red Blood Cell (RBC) Count 4.42 mill/uL (4.20-5.40); White Blood Cell (WBC) Count 6.8 thou/uL (4.8-10.8)
[2018-10-22 05:14] LABS: Anion Gap 11 mmol/L (10-20); BUN (Urea Nitrogen) 12 mg/dL (9.8-20.1); Calc. Creatinine Clearance 55 mL/min (70-130); Calcium 9.1 mg/dL (7.8-10.44); Carbon Dioxide 21 mmol/L (23-31); Chloride 113 mmol/L (98-107); Estimated GFR-MDRD 43; Glucose 83 mg/dL (80-115); Potassium 3.6 mmol/L (3.5-5.1); Sodium 141 mmol/L (136-145)
[2018-10-22] MEDS ORDERED: Levothyroxine Sodium 75 MCG TAB PO SCH (06:00)
[2018-10-22] MEDS: Levothyroxine Sodium 100 MCG TAB PO SCH (06:17)
[2018-10-22] MEDS: Polyethylene Glycol 3350 17 GM Packet PO SCH ×2 (08:51→20:05)
[2018-10-22] MEDS: FLUoxetine HCl 20 MG CAP PO SCH (08:51)
[2018-10-22] MEDS: Calcitriol 0.25 MCG CAP PO SCH ×2 (08:52→20:02)
[2018-10-22] MEDS: NIFEdipine XL 60 MG TAB PO SCH (08:52)
[2018-10-22] MEDS: Gabapentin 300 MG CAP PO SCH ×2 (08:52→20:02)
[2018-10-22] MEDS: Carvedilol 25 MG TAB PO SCH ×2 (08:52→20:02)
[2018-10-22] MEDS: Enoxaparin Sodium 30 MG/0.3 ML SYRINGE SC SCH (08:52)
[2018-10-22] MEDS: Lidocaine Patch Removal TOP SCH (08:55)
[2018-10-22] MEDS ORDERED: NIFEdipine XL 60 MG TAB PO SCH (10:00)
--- NOTE | 2018-10-22 14:05 | PDOC.HOSPP ---
- Subjective Encounter Date: 10/22/18 Encounter Time: 10:02 Subjective: 63 y/o female with crohns, prior SBO admitted with abdominal pain and found to have SBO. BP went up due to inability to continue oral antihypertensives and she was moved to ICU for Cardene infusion. Patient also developed some confusion. Intestinal obstruction has resolved and patient is back on clear liquid. Mental status is back to baseline, abdominal pain is better and patient is having BM. - Objective Vital Signs & Weight: Vital Signs (12 hours) Temp Pulse Resp BP BP BP Pulse Ox 10/22/18 10:51 98.5 F 85 18 138/93 H 91 L 10/22/18 10:25 94 156/100 H 10/22/18 10:00 156/100 H 10/22/18 08:52 94 158/100 H 10/22/18 08:01 98.4 F 94 18 158/100 H 92 L 10/22/18 03:51 98.5 F 79 20 125/88 94 L Weight Admit Weight 198 lb 6.4 oz Weight 198 lb 6.4 oz Most Recent Monitor Data Heart Rate from ECG 90 NIBP 146/89 NIBP BP-Mean 108 Respiration from ECG 23 SpO2 100 I&O: 10/21/18 10/22/18 10/23/18 06:59 06:59 06:59 Intake Total 3988 5088 Output Total 2160 2060 Balance 1828 3028 Result Diagrams: 10/22/18 03:57 10/22/18 03:57 Additional Labs: Accuchecks 10/22/18 10/21/18 10/21/18 03:55 21:18 17:58 POC Glucose 92 212 H 123 H ROS - Medication Medications: Active Medications Generic Name Dose Route Start Last Admin Trade Name Freq PRN Reason Stop Dose Admin Atorvastatin Calcium 40 mg 10/21/18 21:00 10/21/18 21:17 Lipitor PO 40 mg HS JOSSY Administration Calcitriol 0.5 mcg 10/21/18 09:00 10/22/18 08:52 Rocaltrol PO 0.5 mcg BID JOSSY Administration Carvedilol 25 mg 10/21/18 21:00 10/22/18 08:52 Coreg PO 25 mg BID JOSSY Administration Enoxaparin Sodium 30 mg 10/19/18 09:00 10/22/18 08:52 Lovenox SC 30 mg 0900 JOSSY Administration Fluoxetine HCl 60 mg 10/21/18 09:00 10/22/18 08:51 Prozac PO 60 mg DAILY JOSSY Administration Gabapentin 300 mg 10/21/18 09:00 10/22/18 08:52 Neurontin PO 300 mg BID JOSSY Administration Hydralazine HCl 10 mg 10/18/18 04:42 10/21/18 04:39 Apresoline SLOW IVP 10 mg Q4H PRN Administration SBP>160/100 Insulin Human Lispro 0 units 10/18/18 09:44 10/20/18 18:43 Humalog SC 2 units .MILD SLIDING SCALE PRN Administration Mild Correctional Scale Labetalol HCl 20 mg 10/19/18 01:56 10/21/18 02:31 Normodyne SLOW IVP 20 mg Q4H PRN Administration SBP Greater Than 180 Levothyroxine Sodium 100 mcg 10/22/18 06:00 10/22/18 06:17 Synthroid PO 100 mcg 0600 JOSSY Administration Lidocaine 1 patch 10/19/18 21:00 10/21/18 21:27 Lidoderm 5% Patch TD 1 patch HS JOSSY Administration Miscellaneous Medication 1 each 10/20/18 09:00 10/22/18 08:55 Lidocaine Patch Removal TOP 1 each QAM JOSSY Administration Nicotine 14 mg 10/20/18 22:00 10/21/18 21:20 Nicoderm Patch TOP 14 mg Q24HR JOSSY Administration Ondansetron HCl 4 mg 10/18/18 13:47 10/19/18 08:12 Zofran IVP 4 mg Q6H PRN Administration Nausea/Vomiting Pantoprazole Sodium 40 mg 10/21/18 09:00 10/22/18 08:51 Protonix PO 40 mg DAILY JOSSY Administration Brexpiprazole [ 0 each 10/21/18 09:00 10/22/18 08:48 Rexulti] 2 Mg PO Not Given DAILY JOSSY Polyethylene Glycol 17 gm 10/21/18 21:00 10/22/18 08:51 Miralax PO 17 gm BID JOSSY Administration Quetiapine Fumarate 200 mg 10/21/18 21:00 10/21/18 21:18 Seroquel PO 200 mg HS JOSSY Administration Sodium Chloride 10 ml 10/20/18 21:00 10/22/18 08:52 Flush - Normal Saline IVF 10 ml Q12HR JOSSY Administration - Exam awake alert Eye: PERRL, anicteric sclera ENT: normocephalic atraumatic, moist mucosa Neck: supple, symmetric, no JVD Heart: RRR, no murmur Respiratory: CTAB, no wheezes, no rales, no ronchi Gastrointestinal: soft, non-tender, non-distended, normal bowel sounds Gastrointestinal - other findings: obese Extremities: no cyanosis, no edema Neurological: CN's grossly intact, no focal deficits Psychiatric: normal affect, normal behavior, A&O x 3 Hosp A/P (1) SBO (small bowel obstruction) Code(s): K56.69 - OTHER INTESTINAL OBSTRUCTION * DO NOT USE * Status: Acute (2) Accelerated hypertension Code(s): I10 - ESSENTIAL (PRIMARY) HYPERTENSION Status: Acute (3) MOOK (acute kidney injury) Code(s): N17.9 - ACUTE KIDNEY FAILURE, UNSPECIFIED Status: Acute (4) Crohns disease Code(s): K50.90 - CROHN'S DISEASE, UNSPECIFIED, WITHOUT COMPLICATIONS Status: Chronic Qualifiers: Gastrointestinal tract location: unspecified location Digestive disease complication type: unspecified complication Qualified Code(s): K50.919 - Crohn 's disease, unspecified, with unspecified complications (5) DM type 2 (diabetes mellitus, type 2) Status: Chronic Qualifiers: Diabetes mellitus usp insulin use: with terminal clerk use Diabetes mellitus complication status: with kidney complications Diabetes mellitus complication detail: with chronic kidney disease Chronic kidney disease stage : stage 3 (moderate) Qualified Code(s): E11.22 - Type 2 diabetes mellitus with diabetic chronic kidney disease; N18.3 - Chronic kidney disease, stage 3 ( moderate); Z79.4 - alf (current) use of insulin (6) Diastolic heart failure Code(s): I50.30 - UNSPECIFIED DIASTOLIC (CONGESTIVE) HEART FAILURE Status: Chronic Qualifiers: Heart failure chronicity: acute on chronic Qualified Code(s): I50.33 - Acute on chronic diastolic (congestive) heart failure (7) Acute encephalopathy Code(s): G93.40 - ENCEPHALOPATHY, UNSPECIFIED Status: Resolved (8) Hypernatremia Code(s): E87.0 - HYPEROSMOLALITY AND HYPERNATREMIA Status: Acute (9) Hypokalemia Code(s): E87.6 - HYPOKALEMIA Status: Resolved - Plan DC IVF Advance diet to regular Restart oral clonidine and DC clonidine patch Replete serum potassium Get repeat BMP and serum magnesium in the am. For discharge tomorrow if tolerating regular diet. PT/OT eval and treat
[2018-10-22] MEDS: cloNIDine 0.2 MG TAB PO SCH ×2 (14:26→20:02)
--- NOTE | 2018-10-22 16:13 | PDOC.GSPN ---
Surgery Progress Note: Subj - Subjective Narrative: Patient is feeling better. Mentally she is back to her normal self and her abdominal pain is improved after having 2 large bowel movements yesterday and another one today. Her abdominal exam is benign. She has very minimal pain to palpation in the left upper quadrant and bowel sounds are normal. Her blood pressure is still a little elevated but better than it was. Other vital signs are normal and her labs are stable. Assessment/plan: Small bowel obstruction, resolved. She can advance her diet as tolerated. I do recommend that she remain on a stool softener and laxative as an outpatient, and follow-up within the next few weeks with her network manager to make sure that her Crohn's disease is not contributing to any of her symptoms. From a surgical standpoint she is ready for discharge. The hospitalist feels that she requires another day's admission to stabilize her blood pressure, and will be accepting her on their surfaces. She can follow up with me on a when necessary basis as an outpatient Surgery Progress Note: Obj - Vital signs Vital signs: Vital Signs - Most Recent Temp Pulse Resp BP Pulse Ox 98.5 F 85 18 149/100 H 91 L 10/22/18 10:51 10/22/18 10:51 10/22/18 10:51 10/22/18 14:26 10/22/18 10:51 Surgery Progress Note: Results - Labs Result Diagrams: 10/22/18 03:57 10/22/18 03:57 Lab results: Laboratory Results - last 24 hr 10/22/18 10/22/18 03:57 03:57 WBC 6.8 RBC 4.42 Hgb 13.2 Hct 41.2 MCV 93.2 MCH 29.9 MCHC 32.1 RDW 16.4 H Plt Count 221 MPV 8.5 Neutrophils % 44.0 Lymphocytes % 44.2 Monocytes % 9.7 Eosinophils % 1.9 Basophils % 0.2 Neutrophils # 3.0 Lymphocytes # 3.0 Monocytes # 0.7 H Eosinophils # 0.1 Basophils # 0.0 Sodium 141 Potassium 3.6 Chloride 113 H Carbon Dioxide 21 L Anion Gap 11 BUN 12 Creatinine 1.47 H Estimated GFR (MDRD) 43 Glucose 83 Calcium 9.1
[2018-10-22] MEDS: Nicotine 14 MG PATCH TOP SCH (20:00)
[2018-10-22] MEDS: Atorvastatin Calcium 40 MG TAB PO SCH (20:02)
[2018-10-22] MEDS: Lidocaine 5% Patch TD SCH (20:02)
[2018-10-23] MEDS: Zolpidem Tartrate 5 MG TAB PO PRN (01:42)
[2018-10-23] MEDS: Ondansetron PF 4 MG/2 ML Vial IVP PRN ×2 (01:45→20:00)
[2018-10-23 05:51] LABS: Anion Gap 13 mmol/L (10-20); BUN (Urea Nitrogen) 12 mg/dL (9.8-20.1); Calc. Creatinine Clearance 53 mL/min (70-130); Calcium 9.7 mg/dL (7.8-10.44); Carbon Dioxide 22 mmol/L (23-31); Chloride 112 mmol/L (98-107); Estimated GFR-MDRD 42; Glucose 113 mg/dL (80-115); Magnesium 1.7 mg/dL (1.6-2.6); Potassium 3.6 mmol/L (3.5-5.1); Sodium 143 mmol/L (136-145)
[2018-10-23] MEDS: Levothyroxine Sodium 100 MCG TAB PO SCH (06:11)
[2018-10-23] MEDS ORDERED: Morphine 2 MG/ML SYRINGE SLOW IVP SCH (06:30)
[2018-10-23] MEDS ORDERED: Magnesium 2 GM/50 ML 2 GM in Premix Bag 1 BAG IVPB SCH (08:30)
[2018-10-23] MEDS: Enoxaparin Sodium 30 MG/0.3 ML SYRINGE SC SCH (09:13)
[2018-10-23] MEDS: Polyethylene Glycol 3350 17 GM Packet PO SCH ×2 (09:14→20:50)
[2018-10-23] MEDS: Gabapentin 300 MG CAP PO SCH ×2 (09:15→20:49)
[2018-10-23] MEDS: cloNIDine 0.2 MG TAB PO SCH ×3 (09:15→20:49)
[2018-10-23] MEDS: NIFEdipine XL 60 MG TAB PO SCH (09:15)
[2018-10-23] MEDS: Calcitriol 0.25 MCG CAP PO SCH ×2 (09:16→20:49)
[2018-10-23] MEDS: Carvedilol 25 MG TAB PO SCH ×2 (09:17→20:49)
[2018-10-23] MEDS: FLUoxetine HCl 20 MG CAP PO SCH (09:20)
[2018-10-23] MEDS: Lidocaine Patch Removal TOP SCH (09:31)
--- NOTE | 2018-10-23 12:05 | PDOC.HOSPP ---
- Subjective Encounter Date: 10/23/18 Encounter Time: 11:03 Subjective: 63 y/o female with crohns, prior SBO admitted with abdominal pain and found to have SBO. BP went up due to inability to continue oral antihypertensives and she was moved to ICU for Cardene infusion. Patient also developed some confusion. Intestinal obstruction has resolved and patient is back on diet. Tolerated liquid diet but developed abdominal pain since last after advancement to regular diet. Had small BM earlier today. No nausea or vomiting. - Objective Vital Signs & Weight: Vital Signs (12 hours) Temp Pulse Resp BP BP Pulse Ox 10/23/18 11:29 99.2 F 98 18 155/95 H 91 L 10/23/18 09:15 96 133/88 10/23/18 08:00 93 L 10/23/18 07:55 98.6 F 96 18 133/88 93 L 10/23/18 06:00 98.5 F 96 18 142/96 H 92 L Weight Admit Weight 198 lb 6.4 oz Weight 198 lb 6.4 oz Most Recent Monitor Data Heart Rate from ECG 90 NIBP 146/89 NIBP BP-Mean 108 Respiration from ECG 23 SpO2 100 I&O: 10/22/18 10/23/18 10/24/18 06:59 06:59 06:59 Intake Total 5088 550 Output Total 2059 2049 Balance 3028 -1500 Result Diagrams: 10/22/18 03:57 10/23/18 05:20 Additional Labs: Accuchecks 10/23/18 10/23/18 10/22/18 11:35 06:12 20:37 POC Glucose 108 116 H 131 H 10/22/18 10/22/18 16:20 10:58 POC Glucose 115 H 120 H ROS - Medication Medications: Active Medications Generic Name Dose Route Start Last Admin Trade Name Freq PRN Reason Stop Dose Admin Atorvastatin Calcium 40 mg 10/21/18 21:00 10/22/18 20:02 Lipitor PO 40 mg HS JOSSY Administration Calcitriol 0.5 mcg 10/21/18 09:00 10/23/18 09:16 Rocaltrol PO 0.5 mcg BID JOSSY Administration Carvedilol 25 mg 10/21/18 21:00 10/23/18 09:17 Coreg PO 25 mg BID JOSSY Administration Clonidine 0.2 mg 10/22/18 15:00 10/23/18 09:15 Catapres PO 0.2 mg TID JOSSY Administration Enoxaparin Sodium 30 mg 10/19/18 09:00 10/23/18 09:13 Lovenox SC 30 mg 0900 JOSSY Administration Fluoxetine HCl 60 mg 10/21/18 09:00 10/23/18 09:20 Prozac PO 60 mg DAILY JOSSY Administration Gabapentin 300 mg 10/21/18 09:00 10/23/18 09:15 Neurontin PO 300 mg BID JOSSY Administration Hydralazine HCl 10 mg 10/18/18 04:42 10/21/18 04:39 Apresoline SLOW IVP 10 mg Q4H PRN Administration SBP>160/100 Insulin Human Lispro 0 units 10/18/18 09:44 10/20/18 18:43 Humalog SC 2 units .MILD SLIDING SCALE PRN Administration Mild Correctional Scale Labetalol HCl 20 mg 10/19/18 01:56 10/21/18 02:31 Normodyne SLOW IVP 20 mg Q4H PRN Administration SBP Greater Than 180 Levothyroxine Sodium 100 mcg 10/22/18 06:00 10/23/18 06:11 Synthroid PO 100 mcg 0600 JOSSY Administration Lidocaine 1 patch 10/19/18 21:00 10/22/18 20:02 Lidoderm 5% Patch TD 1 patch HS JOSSY Administration Miscellaneous Medication 1 each 10/20/18 09:00 10/23/18 09:31 Lidocaine Patch Removal TOP 1 each QAM JOSSY Administration Nicotine 14 mg 10/20/18 22:00 10/22/18 20:00 Nicoderm Patch TOP 14 mg Q24HR JOSSY Administration Nifedipine 120 mg 10/23/18 09:00 10/23/18 09:15 Procardia Xl PO 120 mg DAILY JOSSY Administration Ondansetron HCl 4 mg 10/18/18 13:47 10/23/18 01:45 Zofran IVP 4 mg Q6H PRN Administration Nausea/Vomiting Pantoprazole Sodium 40 mg 10/21/18 09:00 10/23/18 09:17 Protonix PO 40 mg DAILY JOSSY Administration Brexpiprazole [ 0 each 10/21/18 09:00 10/23/18 09:20 Rexulti] 2 Mg PO Not Given DAILY JOSSY Polyethylene Glycol 17 gm 10/21/18 21:00 10/23/18 09:14 Miralax PO 17 gm BID JOSSY Administration Quetiapine Fumarate 200 mg 10/21/18 21:00 10/22/18 20:05 Seroquel PO 200 mg HS JOSSY Administration Sodium Chloride 10 ml 10/20/18 21:00 10/23/18 09:21 Flush - Normal Saline IVF 10 ml Q12HR JOSSY Administration Zolpidem Tartrate 5 mg 10/20/18 21:42 10/23/18 01:42 Ambien PO 5 mg HS PRN Administration Insomnia - Exam awake alert Eye: anicteric sclera ENT: normocephalic atraumatic, moist mucosa Neck: supple Heart: RRR, no murmur Respiratory: no wheezes, no rales, no ronchi, normal chest expansion Gastrointestinal: soft, non-distended, normal bowel sounds Gastrointestinal - other findings: obese, mild diffuse tenderness Extremities: no cyanosis, no edema Neurological: CN's grossly intact, no focal deficits Psychiatric: normal affect, normal behavior, A&O x 3 Hosp A/P (1) SBO (small bowel obstruction) Code(s): K56.69 - OTHER INTESTINAL OBSTRUCTION * DO NOT USE * Status: Acute (2) Accelerated hypertension Code(s): I10 - ESSENTIAL (PRIMARY) HYPERTENSION Status: Acute (3) MOOK (acute kidney injury) Code(s): N17.9 - ACUTE KIDNEY FAILURE, UNSPECIFIED Status: Acute (4) Crohns disease Code(s): K50.90 - CROHN'S DISEASE, UNSPECIFIED, WITHOUT COMPLICATIONS Status: Chronic Qualifiers: Gastrointestinal tract location: unspecified location Digestive disease complication type: unspecified complication Qualified Code(s): K50.919 - Crohn 's disease, unspecified, with unspecified complications (5) DM type 2 (diabetes mellitus, type 2) Status: Chronic Qualifiers: Diabetes mellitus terminal supervisor insulin use: with terminal supervisor use Diabetes mellitus complication status: with kidney complications Diabetes mellitus complication detail: with chronic kidney disease Chronic kidney disease stage : stage 3 (moderate) Qualified Code(s): E11.22 - Type 2 diabetes mellitus with diabetic chronic kidney disease; N18.3 - Chronic kidney disease, stage 3 ( moderate); Z79.4 - terminal supervisor (current) use of insulin (6) Diastolic heart failure Code(s): I50.30 - UNSPECIFIED DIASTOLIC (CONGESTIVE) HEART FAILURE Status: Chronic Qualifiers: Heart failure chronicity: acute on chronic Qualified Code(s): I50.33 - Acute on chronic diastolic (congestive) heart failure (7) Acute encephalopathy Code(s): G93.40 - ENCEPHALOPATHY, UNSPECIFIED Status: Resolved (8) Hypernatremia Code(s): E87.0 - HYPEROSMOLALITY AND HYPERNATREMIA Status: Acute (9) Hypokalemia Code(s): E87.6 - HYPOKALEMIA Status: Resolved (10) Hypomagnesemia Code(s): E83.42 - HYPOMAGNESEMIA Status: Acute - Plan DC regular diet. Restart clear liquid Replete serum magnesium. Analgesic with acetaminophen PO and IV as needed Get repeat BMP, CBC and serum magnesium in the am. PT/OT eval and treat Continue antihypertensives and other treatment
[2018-10-23] MEDS: Acetaminophen 1,000 MG in Premix Bag 1 BAG IVPB PRN ×2 (15:30→20:53)
[2018-10-23] MEDS: Atorvastatin Calcium 40 MG TAB PO SCH (20:49)
[2018-10-23] MEDS: Lidocaine 5% Patch TD SCH (20:50)
[2018-10-23] MEDS: Nicotine 14 MG PATCH TOP SCH (21:13)
[2018-10-24 05:09] LABS: #Eosinphils 0.1 thou/uL (0.0-0.7); #Lymphocytes 1.4 thou/uL (1.20-3.40); #Monocytes 0.7 thou/uL (0.11-0.59); #Neutrophils 4.5 thou/uL (1.40-6.50); %Basophils 0.5 % (0.0-1.0); %Eosinophils 1.1 % (0.0-10.0); %Lymphocytes 21.2 % (21.0-51.0); %Monocytes 10.1 % (0.0-10.0); %Neutrophils 67.1 % (42.0-75.0); Hemoglobin 14.6 g/dL (12.0-16.0); Mean Corpuscular HGB CONC 33.7 g/dL (32.0-36.0); Mean Platelet Volume 7.8 fL (7.4-10.4); Platelet Count 217 thou/uL (130-400); White Blood Cell (WBC) Count 6.7 thou/uL (4.8-10.8)
[2018-10-24] MEDS: hydrALAZINE 20 MG/ML VIAL SLOW IVP PRN (05:33)
[2018-10-24] MEDS: Levothyroxine Sodium 100 MCG TAB PO SCH (05:37)
[2018-10-24] MEDS: Acetaminophen 1,000 MG in Premix Bag 1 BAG IVPB PRN (05:37)
[2018-10-24 05:42] LABS: Anion Gap 14 mmol/L (10-20); BUN (Urea Nitrogen) 16 mg/dL (9.8-20.1); Calc. Creatinine Clearance 51 mL/min (70-130); Calcium 9.7 mg/dL (7.8-10.44); Carbon Dioxide 21 mmol/L (23-31); Chloride 108 mmol/L (98-107); Estimated GFR-MDRD 40; Glucose 134 mg/dL (80-115); Magnesium 2.1 mg/dL (1.6-2.6); Potassium 3.8 mmol/L (3.5-5.1); Sodium 139 mmol/L (136-145)
[2018-10-24] MEDS: Ondansetron PF 4 MG/2 ML Vial IVP PRN ×2 (05:43→13:41)
[2018-10-24] MEDS: Polyethylene Glycol 3350 17 GM Packet PO SCH ×2 (08:57→20:46)
[2018-10-24] MEDS: NIFEdipine XL 60 MG TAB PO SCH (08:58)
[2018-10-24] MEDS: cloNIDine 0.2 MG TAB PO SCH (08:58)
[2018-10-24] MEDS: FLUoxetine HCl 20 MG CAP PO SCH (08:59)
[2018-10-24] MEDS: Calcitriol 0.25 MCG CAP PO SCH ×2 (08:59→20:45)
[2018-10-24] MEDS: Gabapentin 300 MG CAP PO SCH ×2 (09:00→20:46)
[2018-10-24] MEDS: Enoxaparin Sodium 30 MG/0.3 ML SYRINGE SC SCH (09:00)
[2018-10-24] MEDS: Carvedilol 25 MG TAB PO SCH ×2 (09:00→20:45)
[2018-10-24] MEDS: hydrALAZINE 25 MG TAB PO SCH ×3 (09:57→20:46)
[2018-10-24] MEDS: Lidocaine Patch Removal TOP SCH (09:58)
--- NOTE | 2018-10-24 13:13 | RAD ---
TWO VIEWS ABDOMEN: HISTORY: Abdominal pain and vomiting. COMPARISON: 10/21/2018. FINDINGS: There has been evacuation of contrast from the transverse and descending colon as well as sigmoid col on, but there is residual contrast persisting in the right colon. There has been interval increase i n gaseous distention and dilatation of multiple loops of small bowel as well as gaseous distention of the stomach. Central clips again overlie the right abdomen. No other interval change. IMPRESSION: Interval increase in small bowel dilatation and gaseous distention of the stomach. These findings ma y be related to a partial small bowel obstruction or ileus. POS: TERRY
[2018-10-24] MEDS: Acetaminophen 325 MG TAB PO PRN (13:46)
--- NOTE | 2018-10-24 14:21 | PDOC.HOSPP ---
- Subjective Encounter Date: 10/24/18 Encounter Time: 11:20 Subjective: 63 y/o female with crohns, prior SBO admitted with abdominal pain and found to have SBO. BP went up due to inability to continue oral antihypertensives and she was moved to ICU for Cardene infusion. Patient also developed some confusion. Intestinal obstruction has resolved and patient is back on diet. Tolerated liquid diet but developed abdominal pain with advancement to regular diet and later started vomiting. Start KUB is suggestive of intestinal obstruction. - Objective Vital Signs & Weight: Vital Signs (12 hours) Temp Pulse Resp BP BP Pulse Ox 10/24/18 09:57 99 176/113 H 10/24/18 08:58 99 176/113 H 10/24/18 08:00 100 10/24/18 07:46 98.9 F 99 16 157/95 H 100 10/24/18 05:33 96 176/113 H 10/24/18 04:00 98.1 F 95 20 176/113 H 92 L Weight Admit Weight 198 lb 6.4 oz Weight 198 lb 6.4 oz Most Recent Monitor Data Heart Rate from ECG 90 NIBP 146/89 NIBP BP-Mean 108 Respiration from ECG 23 SpO2 100 I&O: 10/23/18 10/24/18 10/25/18 06:59 06:59 06:59 Intake Total 550 240 Output Total 2050 600 Balance -1500 -600 240 Result Diagrams: 10/24/18 05:01 10/24/18 05:01 Additional Labs: Accuchecks 10/24/18 10/24/18 10/23/18 11:11 05:12 20:16 POC Glucose 115 H 125 H 160 H 10/23/18 15:59 POC Glucose 120 H ROS - Medication Medications: Active Medications Generic Name Dose Route Start Last Admin Trade Name Freq PRN Reason Stop Dose Admin Acetaminophen 650 mg 10/23/18 12:00 10/24/18 13:46 Tylenol PO 650 mg Q6H PRN Administration Fever/Mild Pain Atorvastatin Calcium 40 mg 10/21/18 21:00 10/23/18 20:49 Lipitor PO 40 mg HS JOSSY Administration Calcitriol 0.5 mcg 10/21/18 09:00 10/24/18 08:59 Rocaltrol PO 0.5 mcg BID JOSSY Administration Carvedilol 25 mg 10/21/18 21:00 10/24/18 09:00 Coreg PO 25 mg BID JOSSY Administration Clonidine 0.2 mg 10/22/18 15:00 10/24/18 08:58 Catapres PO 0.2 mg TID JOSSY Administration Enoxaparin Sodium 30 mg 10/19/18 09:00 10/24/18 09:00 Lovenox SC 30 mg 0900 JOSSY Administration Fluoxetine HCl 60 mg 10/21/18 09:00 10/24/18 08:59 Prozac PO 60 mg DAILY JOSSY Administration Gabapentin 300 mg 10/21/18 09:00 10/24/18 09:00 Neurontin PO 300 mg BID JOSSY Administration Hydralazine HCl 10 mg 10/18/18 04:42 10/24/18 05:33 Apresoline SLOW IVP 10 mg Q4H PRN Administration SBP>160/100 Hydralazine HCl 25 mg 10/24/18 09:00 10/24/18 09:57 Apresoline PO 25 mg TID JOSSY Administration Insulin Human Lispro 0 units 10/18/18 09:44 10/20/18 18:43 Humalog SC 2 units .MILD SLIDING SCALE PRN Administration Mild Correctional Scale Labetalol HCl 20 mg 10/19/18 01:56 10/21/18 02:31 Normodyne SLOW IVP 20 mg Q4H PRN Administration SBP Greater Than 180 Levothyroxine Sodium 100 mcg 10/22/18 06:00 10/24/18 05:37 Synthroid PO 100 mcg 0600 JOSSY Administration Lidocaine 1 patch 10/19/18 21:00 10/23/18 20:50 Lidoderm 5% Patch TD 1 patch HS JOSSY Administration Miscellaneous Medication 1 each 10/20/18 09:00 10/24/18 09:58 Lidocaine Patch Removal TOP 1 each QAM JOSSY Administration Nicotine 14 mg 10/20/18 22:00 10/23/18 21:13 Nicoderm Patch TOP 14 mg Q24HR JOSSY Administration Nifedipine 120 mg 10/23/18 09:00 10/24/18 08:58 Procardia Xl PO 120 mg DAILY JOSSY Administration Ondansetron HCl 4 mg 10/18/18 13:47 10/24/18 13:41 Zofran IVP 4 mg Q6H PRN Administration Nausea/Vomiting Pantoprazole Sodium 40 mg 10/21/18 09:00 10/24/18 09:01 Protonix PO 40 mg DAILY JOSSY Administration Brexpiprazole [ 0 each 10/21/18 09:00 10/24/18 09:42 Rexulti] 2 Mg PO Not Given DAILY JOSSY Polyethylene Glycol 17 gm 10/21/18 21:00 10/24/18 08:57 Miralax PO 17 gm BID JOSSY Administration Quetiapine Fumarate 200 mg 10/21/18 21:00 10/23/18 20:49 Seroquel PO 200 mg HS JOSSY Administration Sodium Chloride 10 ml 10/20/18 21:00 10/24/18 09:01 Flush - Normal Saline IVF 10 ml Q12HR JOSSY Administration Zolpidem Tartrate 5 mg 10/20/18 21:42 10/23/18 01:42 Ambien PO 5 mg HS PRN Administration Insomnia - Exam awake alert Eye: anicteric sclera ENT: normocephalic atraumatic Neck: supple, symmetric Heart: RRR Respiratory: no wheezes, no rales, no ronchi Gastrointestinal: soft, tender to palpation, distended, diminished bowl sounds Extremities: no cyanosis, no edema Neurological: CN's grossly intact, no focal deficits Psychiatric: normal affect, A&O x 3 Hosp A/P (1) SBO (small bowel obstruction) Code(s): K56.69 - OTHER INTESTINAL OBSTRUCTION * DO NOT USE * Status: Acute (2) Accelerated hypertension Code(s): I10 - ESSENTIAL (PRIMARY) HYPERTENSION Status: Acute (3) MOOK (acute kidney injury) Code(s): N17.9 - ACUTE KIDNEY FAILURE, UNSPECIFIED Status: Acute (4) Crohns disease Code(s): K50.90 - CROHN'S DISEASE, UNSPECIFIED, WITHOUT COMPLICATIONS Status: Chronic Qualifiers: Gastrointestinal tract location: unspecified location Digestive disease complication type: unspecified complication Qualified Code(s): K50.919 - Crohn 's disease, unspecified, with unspecified complications (5) DM type 2 (diabetes mellitus, type 2) Status: Chronic Qualifiers: 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 mellitus 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 treater helper insulin use: with alf use Diabetes mellitus complication status: with kidney complications Diabetes mellitus complication detail: with chronic kidney disease Chronic kidney disease stage : stage 3 (moderate) Qualified Code(s): E11.22 - Type 2 diabetes mellitus with diabetic chronic kidney disease; N18.3 - Chronic kidney disease, stage 3 ( moderate); Z79.4 - longterm (current) use of insulin (6) Diastolic heart failure Code(s): I50.30 - UNSPECIFIED DIASTOLIC (CONGESTIVE) HEART FAILURE Status: Chronic Qualifiers: Heart failure chronicity: acute on chronic Qualified Code(s): I50.33 - Acute on chronic diastolic (congestive) heart failure (7) Acute encephalopathy Code(s): G93.40 - ENCEPHALOPATHY, UNSPECIFIED Status: Resolved (8) Hypernatremia Code(s): E87.0 - HYPEROSMOLALITY AND HYPERNATREMIA Status: Acute (9) Hypokalemia Code(s): E87.6 - HYPOKALEMIA Status: Resolved (10) Hypomagnesemia Code(s): E83.42 - HYPOMAGNESEMIA Status: Acute - Plan Reinsert NG tube and connect same to low intermittent suction NPO Start IVF therapy with D5LR Analgesic with acetaminophen PO and IV as needed Get repeat BMP, CBC and serum magnesium in the am. PT/OT eval and treat Continue antihypertensives and other treatment Re consult gen Surgery care plan discussed with patient and spouse at the bedside and they verbalized understanding
[2018-10-24] MEDS ORDERED: cloNIDine 0.3mg/24 Hour PATCH TD SCH (14:30)
[2018-10-24] MEDS: Dextrose 5%-Lactated Ringers 1,000 ML IV SCH ×3 (15:45→23:51)
[2018-10-24] MEDS: Atorvastatin Calcium 40 MG TAB PO SCH (20:45)
[2018-10-24] MEDS: Lidocaine 5% Patch TD SCH (20:57)
[2018-10-24] MEDS: Nicotine 14 MG PATCH TOP SCH (21:00)
[2018-10-25] MEDS: Levothyroxine Sodium 100 MCG TAB PO SCH (04:42)
[2018-10-25 07:19] LABS: Anion Gap 13 mmol/L (10-20); BUN (Urea Nitrogen) 12 mg/dL (9.8-20.1); Calc. Creatinine Clearance 57 mL/min (70-130); Calcium 9.1 mg/dL (7.8-10.44); Carbon Dioxide 20 mmol/L (23-31); Chloride 109 mmol/L (98-107); Estimated GFR-MDRD 45; Glucose 98 mg/dL (80-115); Potassium 3.2 mmol/L (3.5-5.1); Sodium 139 mmol/L (136-145)
[2018-10-25] MEDS ORDERED: Potassium Chloride 40 MEQ in Sodium Chloride 0.9% 500 ML IVPB SCH (09:30)
[2018-10-25] MEDS: Ondansetron PF 4 MG/2 ML Vial IVP PRN (09:52)
[2018-10-25] MEDS: Calcitriol 0.25 MCG CAP PO SCH ×3 (09:53→23:15)
[2018-10-25] MEDS: Carvedilol 25 MG TAB PO SCH ×3 (09:53→23:15)
[2018-10-25] MEDS: hydrALAZINE 25 MG TAB PO SCH ×4 (09:54→23:15)
[2018-10-25] MEDS: Polyethylene Glycol 3350 17 GM Packet PO SCH ×2 (09:54→21:00)
[2018-10-25] MEDS: FLUoxetine HCl 20 MG CAP PO SCH (09:54)
[2018-10-25] MEDS: Gabapentin 300 MG CAP PO SCH ×3 (09:54→23:15)
[2018-10-25] MEDS: NIFEdipine XL 60 MG TAB PO SCH (09:54)
[2018-10-25] MEDS: Dextrose 5%-Lactated Ringers 1,000 ML IV SCH (10:08)
[2018-10-25] MEDS: Enoxaparin Sodium 30 MG/0.3 ML SYRINGE SC SCH (10:10)
[2018-10-25] MEDS: Lidocaine Patch Removal TOP SCH (10:22)
--- NOTE | 2018-10-25 10:29 | RAD ---
EXAM: XR Abdomen 1 View/KUB PROVIDED CLINICAL HISTORY: Small bowel obstruction versus ileus. COMPARISON: 02/02/2019 FINDINGS: Visualized lung bases are clear. There is persistent elevation the right hemidiaphragm. Surgical clips are again seen overlying the right abdomen. There has been interval placement of a tammie ogastric tube with the tip overlying the expected location of the gastric antrum. There has been decompression of the previously noted distended gas-filled stomach. A small amount of residual contra st is seen within the right colon, but this has decreased. There are dilated loops of small bowel again seen within the left abdomen. The degree of dilatation appears slightly improved from the prior exam. No other interval change. IMPRESSION: 1. Interval placement of a nasogastric tube with interval decompression of the gaseous distended stom ach noted on the prior study. 2. Dilated loops of small bowel within the left abdomen which are slightly less prominent than on the prior exam. These findings again may be related to either ileus or partial small bowel obstruction. Continued follow-up suggested.
[2018-10-25] MEDS: Labetalol HCl 100 MG/20 ML VIAL SLOW IVP PRN ×3 (11:46→21:05)
--- NOTE | 2018-10-25 15:40 | PDOC.HOSPP ---
- Subjective Encounter Date: 10/25/18 Encounter Time: 13:38 Subjective: 63 y/o female with crohns, prior SBO admitted with abdominal pain and found to have SBO. BP went up due to inability to continue oral antihypertensives and she was moved to ICU for Cardene infusion. Patient also developed some confusion. Intestinal obstruction has resolved and patient is back on diet. Tolerated liquid diet but developed abdominal pain with advancement to regular diet and later started vomiting. KUB was suggestive of intestinal obstruction and NG decompression was restarted. No new problem. complaining of discomfort due to NG tube and some abdominal discomfort. No further vomiting since NG tube insertion. No BM in the last 2 days. - Objective Vital Signs & Weight: Vital Signs (12 hours) Temp Pulse Resp BP BP BP Pulse Ox 10/25/18 15:15 92 10/25/18 12:10 161/97 H 10/25/18 11:46 92 10/25/18 11:31 98.2 F 92 18 173/116 H 91 L 10/25/18 09:54 97 10/25/18 08:00 99.0 F 97 20 156/98 H 95 10/25/18 05:08 99.3 F 94 18 130/88 92 L Weight Admit Weight 198 lb 6.4 oz Weight 198 lb 6.4 oz Most Recent Monitor Data Heart Rate from ECG 90 NIBP 146/89 NIBP BP-Mean 108 Respiration from ECG 23 SpO2 100 I&O: 10/24/18 10/25/18 10/26/18 06:59 06:59 06:59 Intake Total 1680 Output Total 600 2850 Balance -600 -1170 Result Diagrams: 10/24/18 05:01 10/25/18 06:38 Additional Labs: Accuchecks 10/25/18 10/25/18 10/24/18 11:29 05:04 20:42 POC Glucose 111 H 102 111 H 10/24/18 16:03 POC Glucose 107 ROS - Medication Medications: Active Medications Generic Name Dose Route Start Last Admin Trade Name Freq PRN Reason Stop Dose Admin Acetaminophen 650 mg 10/23/18 12:00 10/24/18 13:46 Tylenol PO 650 mg Q6H PRN Administration Fever/Mild Pain Atorvastatin Calcium 40 mg 10/21/18 21:00 10/24/18 20:45 Lipitor PO Not Given HS JOSSY Calcitriol 0.5 mcg 10/21/18 09:00 10/25/18 09:53 Rocaltrol PO Not Given BID [facility] Carvedilol 25 mg 10/21/18 21:00 10/25/18 09:53 Coreg PO Not Given BID [facility] Fluoxetine HCl 60 mg 10/21/18 09:00 10/25/18 09:54 Prozac PO Not Given DAILY [facility] Gabapentin 300 mg 10/21/18 09:00 10/25/18 09:54 Neurontin PO Not Given BID [facility] Hydralazine HCl 10 mg 10/18/18 04:42 10/24/18 05:33 Apresoline SLOW IVP 10 mg Q4H PRN Administration SBP>160/100 Hydralazine HCl 25 mg 10/24/18 09:00 10/25/18 15:15 Apresoline PO Not Given TID [facility] Dextrose/Lactated Ringer's 1,000 mls @ 100 mls/hr 10/24/18 10:30 10/25/18 10: 08 D5 Lr IV 1,000 mls .Q10H JOSSY Administration Insulin Human Lispro 0 units 10/18/18 09:44 10/20/18 18:43 Humalog SC 2 units .MILD SLIDING SCALE PRN Administration Mild Correctional Scale Levothyroxine Sodium 100 mcg 10/22/18 06:00 10/25/18 04:42 Synthroid PO Not Given 0600 [facility] Lidocaine 1 patch 10/19/18 21:00 10/24/18 20:57 Lidoderm 5% Patch TD 1 patch HS JOSSY Administration Miscellaneous Medication 1 each 10/20/18 09:00 10/25/18 10:22 Lidocaine Patch Removal TOP 1 each QAM [facility] Administration Nicotine 14 mg 10/20/18 22:00 10/24/18 21:00 Nicoderm Patch TOP 14 mg Q24HR JOSSY Administration Nifedipine 120 mg 10/23/18 09:00 10/25/18 09:54 Procardia Xl PO Not Given DAILY [facility] Ondansetron HCl 4 mg 10/18/18 13:47 10/25/18 09:52 Zofran IVP 4 mg Q6H PRN Administration Nausea/Vomiting Pantoprazole Sodium 40 mg 10/21/18 09:00 10/25/18 10:11 Protonix PO Not Given DAILY [facility] Brexpiprazole [ 0 each 10/21/18 09:00 10/25/18 09:54 Rexulti] 2 Mg PO Not Given DAILY [facility] Polyethylene Glycol 17 gm 10/21/18 21:00 10/25/18 09:54 Miralax PO Not Given BID [facility] Quetiapine Fumarate 200 mg 10/21/18 21:00 10/24/18 20:46 Seroquel PO Not Given HS [facility] Sodium Chloride 10 ml 10/20/18 21:00 10/25/18 09:55 Flush - Normal Saline IVF Not Given Q12HR [facility] Zolpidem Tartrate 5 mg 10/20/18 21:42 10/23/18 01:42 Ambien PO 5 mg HS PRN Administration Insomnia - Exam awake alert Eye: anicteric sclera ENT: normocephalic atraumatic Neck: supple, symmetric, no JVD Heart: RRR Respiratory: no wheezes, no rales, no ronchi Gastrointestinal: soft, non-distended, diminished bowl sounds (mild diffuse tenderness) Extremities: no cyanosis, no clubbing, no edema Neurological: CN's grossly intact, no focal deficits Psychiatric: normal affect, A&O x 3 Hosp A/P (1) SBO (small bowel obstruction) Code(s): K56.69 - OTHER INTESTINAL OBSTRUCTION * DO NOT USE * Status: Acute (2) Accelerated hypertension Code(s): I10 - ESSENTIAL (PRIMARY) HYPERTENSION Status: Acute (3) MOOK (acute kidney injury) Code(s): N17.9 - ACUTE KIDNEY FAILURE, UNSPECIFIED Status: Acute (4) Crohns disease Code(s): K50.90 - CROHN'S DISEASE, UNSPECIFIED, WITHOUT COMPLICATIONS Status: Chronic Qualifiers: Gastrointestinal tract location: unspecified location Digestive disease complication type: unspecified complication Qualified Code(s): K50.919 - Crohn 's disease, unspecified, with unspecified complications (5) DM type 2 (diabetes mellitus, type 2) Status: Chronic Qualifiers: Diabetes mellitus rat exterminator insulin use: with fdc use Diabetes mellitus complication status: with kidney complications Diabetes mellitus complication detail: with chronic kidney disease Chronic kidney disease stage : stage 3 (moderate) Qualified Code(s): E11.22 - Type 2 diabetes mellitus with diabetic chronic kidney disease; N18.3 - Chronic kidney disease, stage 3 ( moderate); 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.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 school 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 (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 Continue IVF D5LR and NPO Replete serum potassium with potassium chloride Analgesic with acetaminophen IV as needed. No narcotic due to acute encephalopathy from prior use Hold oral pill including antihypertensice. Continue clonidine patch. Add labetalol 20 mg IV q4h for SBP above 160 Get repeat renal function panel, CBC and serum magnesium in the am.
[2018-10-25] MEDS: Acetaminophen 1,000 MG in Premix Bag 1 BAG IVPB PRN ×2 (17:25→22:28)
--- NOTE | 2018-10-25 18:01 | CON ---
DATE OF CONSULTATION: 10/25/2018 REASON FOR CONSULTATION: Abdominal pain, nausea, vomiting. HISTORY OF PRESENT ILLNESS: Ms. Mosqueda is a 63-year-old female whom I know well with her Crohn management. Her Crohn has been in remission with Remicade infusion every 8 weeks. She was admitted to this facility for severe abdominal pain with severe abdominal distention with CT evidence for small bowel obstruction. She was briefly transferred to the ICU for blood pressure control. Her symptoms did get better with interval improvement by CT with resolution of distention, abdominal pain, nausea, and vomiting. However, she has had recurrent nausea and vomiting with more severe abdominal pain after the NG tube was removed over the weekend. She now feels better with reinsertion of the nasogastric tube for decompression. The patient has a history of small bowel adhesions, causing obstruction, requiring lysis of adhesions in 2016. Earlier this year in March, she was admitted for pancreatitis and altered mentation from medication withdrawal. During that time, she also had small bowel obstruction that slowly resolved on its own. CT in March did show a transition point in the distal small bowel area near the suture line. Currently, she feels better with NG tube decompression. PAST MEDICAL HISTORY: Crohn disease; small bowel obstruction, requiring lysis of adhesions in 06/2016; GE reflux; chronic constipation; hypertension; diabetes; and coronary artery disease, status post cholecystectomy/appendectomy/hysterectomy. MEDICATIONS: Include: 1. Gabapentin. 2. Doxepin. 3. Torsemide. 4. Symbicort. 5. Farxiga. 6. Amitiza. 7. Clonidine patch. 8. Nexium. 9. Losartan. 10. Hydralazine. 11. Coreg. 12. Nifedipine. 13. Prozac. 14. Insulin. 15. Calcitriol. 16. Remicade infusion. ALLERGIES: NONE. SOCIAL HISTORY: The patient smokes a pack a day. She denies alcohol consumption. She is , lives with her . FAMILY HISTORY: Negative for any known GI problem, liver disease, or GI malignancy. REVIEW OF SYSTEMS: Ten-point review of systems did not show any other pertinent positives or negatives. PHYSICAL EXAMINATION: VITAL SIGNS: Temperature 98.8, blood pressure 208/122, and pulse of 95. GENERAL: She is alert, sitting up, appears comfortable. HEAD AND NECK: Exam shows anicteric sclerae. There is a nasogastric tube through her nostril. The oropharynx is moist. Neck exam is supple. CV: Shows normal S1, S2. Regular rate and rhythm. CHEST: Shows breath sounds. ABDOMEN: Protuberant, but no tympany. Very hypoactive bowel sounds. Now, diffusely soft. No tenderness. EXTREMITIES: Show no edema. LABORATORY DATA: Electrolytes within normal range. Creatinine 1.41, BUN of 12. WBC 6.7, hemoglobin 14.6, and platelet count of 217. DIAGNOSTIC STUDIES: Abdominal x-ray today did show the prominent loops of small bowel with decompressed colon. ASSESSMENT: 1. Recurrent small bowel obstruction. The patient has had previous lysis of adhesions with CT of earlier this year demonstrating a transition zone in the distal small bowel. 2. Crohn disease, in remission with infliximab infusion therapy. 3. Hypertension. 4. Diabetes. 5. Depression. RECOMMENDATIONS: 1. I agree with Dr. Mora to proceed with surgery as the patient has recurrent small bowel obstruction after the NG tube was removed during this admission, especially in the setting of having previous bouts of small bowel obstruction with CTs in the past demonstrating transition zone in the distal small bowel. 2. We will follow perioperatively. Job ID: [id number]
[2018-10-25] MEDS: Atorvastatin Calcium 40 MG TAB PO SCH ×2 (20:59→23:15)
[2018-10-25] MEDS: Lidocaine 5% Patch TD SCH (21:05)
[2018-10-25] MEDS: Nicotine 14 MG PATCH TOP SCH (21:05)
--- NOTE | 2018-10-25 21:21 | PRG ---
DATE OF SERVICE: 10/25/2018 SUBJECTIVE: Ms. Mosqueda is feeling okay. She states that she was having pretty bad pain, but this improved after placement of the NG tube. She is currently fairly comfortable with minimal abdominal pain, although she is having intermittent nausea, which is being treated with Zofran. The NG tube is in place and has ongoing drainage of pale green output. OBJECTIVE: vital signs: Okay. Blood pressure was mildly elevated earlier today. ABDOMEN: Soft and nondistended. There was some tenderness in the left upper quadrant, but no peritoneal signs. ASSESSMENT: Recurrent small-bowel obstruction. According to the patient, she is not passing flatus, but she is comfortable with the NG tube in place. Her KUB still shows no evidence of ongoing obstruction or ileus since this is her second episode of obstruction during this hospitalization. I have recommended surgery. We will give her 1 more day to decompress. I have put her on the OR schedule for tomorrow. If she improves remarkably, we can revisit this issue, but given her recurrent bouts of obstruction recently, I think that exploration and lysis of adhesions is indicated. The patient and her family are in agreement with the plan. I do think that we can continue to give her psychiatric medications and blood pressure medications by mouth and clamp or NG for a couple hours after this. She has had some issues with withholding her psych medications in the past, as well as controlling her blood pressure. Job ID: [id number]
[2018-10-26] MEDS: Dextrose 5%-Lactated Ringers 1,000 ML IV SCH ×5 (04:33→23:04)
[2018-10-26] MEDS: Levothyroxine Sodium 100 MCG TAB PO SCH (05:57)
[2018-10-26] MEDS: Carvedilol 25 MG TAB PO SCH ×2 (05:57→20:58)
[2018-10-26 06:27] LABS: #Eosinphils 0.2 thou/uL (0.0-0.7); #Lymphocytes 1.9 thou/uL (1.20-3.40); #Monocytes 0.7 thou/uL (0.11-0.59); #Neutrophils 3.2 thou/uL (1.40-6.50); %Basophils 0.4 % (0.0-1.0); %Eosinophils 3.4 % (0.0-10.0); %Lymphocytes 30.7 % (21.0-51.0); %Monocytes 12.2 % (0.0-10.0); %Neutrophils 53.3 % (42.0-75.0); Hemoglobin 14.2 g/dL (12.0-16.0); Mean Corpuscular HGB CONC 34.3 g/dL (32.0-36.0); Mean Corpuscular Hemoglobin 31.2 pg (27.0-31.0); Mean Corpuscular Volume 91.1 fL (78.0-98.0); Mean Platelet Volume 8.4 fL (7.4-10.4); Platelet Count 243 thou/uL (130-400); RBC Distribution Width 15.5 % (11.5-14.5); Red Blood Cell (RBC) Count 4.54 mill/uL (4.20-5.40); White Blood Cell (WBC) Count 6.1 thou/uL (4.8-10.8)
[2018-10-26 06:47] LABS: Albumin 3.6 g/dL (3.4-4.8); Anion Gap 13 mmol/L (10-20); BUN (Urea Nitrogen) 7 mg/dL (9.8-20.1); BUN/Creatinine Ratio 5.74; Calc. Creatinine Clearance 66 mL/min (70-130); Calcium 9.5 mg/dL (7.8-10.44); Carbon Dioxide 25 mmol/L (23-31); Chloride 106 mmol/L (98-107); Estimated GFR-MDRD 54; Glucose 103 mg/dL (80-115); Magnesium 1.7 mg/dL (1.6-2.6); Phosphorus 2.9 mg/dL (2.3-4.7); Sodium 141 mmol/L (136-145)
[2018-10-26] MEDS ORDERED: Magnesium 2 GM/50 ML 2 GM in Premix Bag 1 BAG IVPB SCH (08:15)
[2018-10-26] MEDS ORDERED: Potassium Chloride 40 MEQ in Premix Bag 1 BAG IVPB SCH ×2 (08:15→16:00)
[2018-10-26] MEDS: Enoxaparin Sodium 40 MG/0.4 ML SYRINGE SC SCH (08:17)
[2018-10-26] MEDS: Polyethylene Glycol 3350 17 GM Packet PO SCH (08:17)
[2018-10-26] MEDS: Lidocaine Patch Removal TOP SCH (08:17)
[2018-10-26] MEDS: FLUoxetine HCl 20 MG CAP PO SCH (08:18)
[2018-10-26] MEDS: Calcitriol 0.25 MCG CAP PO SCH ×2 (08:18→20:57)
[2018-10-26] MEDS: NIFEdipine XL 60 MG TAB PO SCH (08:18)
[2018-10-26] MEDS: hydrALAZINE 25 MG TAB PO SCH ×3 (08:19→20:58)
[2018-10-26] MEDS: Gabapentin 300 MG CAP PO SCH ×2 (08:19→20:58)
[2018-10-26] MEDS: Potassium Chloride 20 MEQ in Premix Bag 1 BAG IVPB SCH ×4 (09:00→18:34)
[2018-10-26] MEDS: Pantoprazole 40 MG VIAL IVP SCH ×2 (09:01→20:58)
[2018-10-26] MEDS ORDERED: Clopidogrel Bisulfate 75 MG TAB ONE ×2 (09:35→17:54)
[2018-10-26] MEDS: Acetaminophen 325 MG TAB PO PRN (11:01)
[2018-10-26] MEDS: Labetalol HCl 100 MG/20 ML VIAL SLOW IVP PRN (11:06)
[2018-10-26] MEDS ORDERED: Bupivacaine HCl 0.5%/Epinephrine 1:200,000/PF 30 ml Vial ONE (11:46)
[2018-10-26] MEDS: hydrALAZINE 20 MG/ML VIAL SLOW IVP PRN (12:29)
[2018-10-26] MEDS ORDERED: Labetalol HCl 100 MG/20 ML VIAL SLOW IVP SCH (13:30)
[2018-10-26] MEDS ORDERED: Labetalol HCl 100 MG/20 ML VIAL ONE (13:30)
[2018-10-26] MEDS ORDERED: Fentanyl 100 MCG/2 ML VIAL ONE ×3 (14:20→18:25)
[2018-10-26] MEDS ORDERED: Midazolam HCl 2 mg/2 ml Vial ONE (14:20)
[2018-10-26] MEDS ORDERED: cefOXitin 2 GM VIAL ONE (14:45)
[2018-10-26] MEDS ORDERED: Sodium Chloride 0.9% 100 ML ONE (14:46)
[2018-10-26] MEDS ORDERED: Bupivacaine/Epinephrine 0.25% 30 ML VIAL ONE (14:52)
--- NOTE | 2018-10-26 15:01 | PDOC.HOSPP ---
- Subjective Encounter Date: 10/26/18 Encounter Time: 13:11 Subjective: 63 y/o female with crohns, prior SBO admitted with abdominal pain and found to have SBO. BP went up due to inability to continue oral antihypertensives and she was moved to ICU for Cardene infusion. Patient also developed some confusion. Intestinal obstruction has resolved and patient is back on diet. Tolerated liquid diet but developed abdominal pain with advancement to regular diet and later started vomiting. KUB was suggestive of intestinal obstruction and NG decompression was restarted. Stoill on NG and with no flatus or feces. Surgery is planned. - Objective Vital Signs & Weight: Vital Signs (12 hours) Temp Pulse Resp BP BP BP Pulse Ox 10/26/18 12:29 90 163/110 H 10/26/18 11:06 93 165/112 H 10/26/18 11:00 99.4 F 89 20 144/107 H 97 10/26/18 08:19 94 10/26/18 08:18 93 178/112 H 10/26/18 08:00 95 10/26/18 07:49 98.4 F 94 20 178/115 H 95 10/26/18 04:00 98.7 F 96 20 166/110 H 94 L Weight Admit Weight 198 lb 6.4 oz Weight 198 lb 6.4 oz Most Recent Monitor Data Heart Rate from ECG 90 NIBP 146/89 NIBP BP-Mean 108 Respiration from ECG 23 SpO2 100 I&O: 10/25/18 10/26/18 10/27/18 06:59 06:59 06:59 Intake Total 1680 1250 Output Total 2850 3100 650 Balance -1170 -1850 -650 Result Diagrams: 10/26/18 05:53 10/26/18 05:53 Additional Labs: Accuchecks 10/26/18 10/26/18 10/25/18 11:33 04:49 20:22 POC Glucose 103 99 86 10/25/18 16:35 POC Glucose 86 ROS - Medication Medications: Active Medications Generic Name Dose Route Start Last Admin Trade Name Freq PRN Reason Stop Dose Admin Acetaminophen 650 mg 10/23/18 12:00 10/26/18 11:01 Tylenol PO 650 mg Q6H PRN Administration Fever/Mild Pain Atorvastatin Calcium 40 mg 10/21/18 21:00 10/25/18 23:15 Lipitor PO 40 mg HS JOSSY Administration Calcitriol 0.5 mcg 10/21/18 09:00 10/26/18 08:18 Rocaltrol PO 0.5 mcg BID JOSSY Administration Carvedilol 25 mg 10/21/18 21:00 10/26/18 05:57 Coreg PO 25 mg BID JOSSY Administration Enoxaparin Sodium 40 mg 10/26/18 09:00 10/26/18 08:17 Lovenox SC 40 mg 0900 JOSSY Administration Fluoxetine HCl 60 mg 10/21/18 09:00 10/26/18 08:18 Prozac PO 60 mg DAILY JOSSY Administration Gabapentin 300 mg 10/21/18 09:00 10/26/18 08:19 Neurontin PO 300 mg BID JOSSY Administration Hydralazine HCl 10 mg 10/18/18 04:42 10/26/18 12:29 Apresoline SLOW IVP 10 mg Q4H PRN Administration SBP>160/100 Hydralazine HCl 25 mg 10/24/18 09:00 10/26/18 08:19 Apresoline PO 25 mg TID JOSSY Administration Dextrose/Lactated Ringer's 1,000 mls @ 100 mls/hr 10/24/18 10:30 10/26/18 08: 16 D5 Lr IV Not Given .Q10H [facility] Insulin Human Lispro 0 units 10/18/18 09:44 10/20/18 18:43 Humalog SC 2 units .MILD SLIDING SCALE PRN Administration Mild Correctional Scale Labetalol HCl 20 mg 10/25/18 12:38 10/26/18 11:06 Normodyne SLOW IVP 4 ml Q4H PRN Administration SBP GREATER THAN 160 Levothyroxine Sodium 100 mcg 10/22/18 06:00 10/26/18 05:57 Synthroid PO 100 mcg 0600 JOSSY Administration Lidocaine 1 patch 10/19/18 21:00 10/25/18 21:05 Lidoderm 5% Patch TD 1 patch HS JOSSY Administration Miscellaneous Medication 1 each 10/20/18 09:00 10/26/18 08:17 Lidocaine Patch Removal TOP 1 each QAM JOSSY Administration Nicotine 14 mg 10/20/18 22:00 10/25/18 21:05 Nicoderm Patch TOP 14 mg Q24HR JOSSY Administration Nifedipine 120 mg 10/23/18 09:00 10/26/18 08:18 Procardia Xl PO 120 mg DAILY JOSSY Administration Ondansetron HCl 4 mg 10/18/18 13:47 10/25/18 09:52 Zofran IVP 4 mg Q6H PRN Administration Nausea/Vomiting Pantoprazole Sodium 40 mg 10/26/18 09:00 10/26/18 09:01 Protonix IVP 40 mg Q12HR OJSSY Administration Brexpiprazole [ 0 each 10/21/18 09:00 10/26/18 08:21 Rexulti] 2 Mg PO Not Given DAILY JOSSY Quetiapine Fumarate 200 mg 10/21/18 21:00 10/25/18 23:15 Seroquel PO 200 mg HS JOSSY Administration Sodium Chloride 10 ml 10/20/18 21:00 10/26/18 08:22 Flush - Normal Saline IVF Not Given Q12HR JOSSY Zolpidem Tartrate 5 mg 10/20/18 21:42 10/23/18 01:42 Ambien PO 5 mg HS PRN Administration Insomnia - Exam awake alert Eye: anicteric sclera ENT: moist mucosa ENT - other findings: NG tube in place Neck: supple, symmetric, no JVD Heart: RRR Respiratory: no wheezes, no rales, no ronchi Gastrointestinal: soft Gastrointestinal - other findings: mild diffyuse tenderness. No bowel sound Extremities: no cyanosis, no edema Neurological: CN's grossly intact, no focal deficits Psychiatric: normal affect, A&O x 3 Hosp A/P (1) SBO (small bowel obstruction) Code(s): K56.69 - OTHER INTESTINAL OBSTRUCTION * DO NOT USE * Status: Acute (2) Accelerated hypertension Code(s): I10 - ESSENTIAL (PRIMARY) HYPERTENSION Status: Acute (3) MOOK (acute kidney injury) Code(s): N17.9 - ACUTE KIDNEY FAILURE, UNSPECIFIED Status: Acute (4) Crohns disease Code(s): K50.90 - CROHN'S DISEASE, UNSPECIFIED, WITHOUT COMPLICATIONS Status: Chronic Qualifiers: Gastrointestinal tract location: unspecified location Digestive disease complication type: unspecified complication Qualified Code(s): K50.919 - Crohn 's disease, unspecified, with unspecified complications (5) DM type 2 (diabetes mellitus, type 2) Status: Chronic Qualifiers: Diabetes mellitus buttermaker continuous churn insulin use: with buttermaker continuous churn use Diabetes mellitus complication status: with kidney complications Diabetes mellitus complication detail: with chronic kidney disease Chronic kidney disease stage : stage 3 (moderate) Qualified Code(s): E11.22 - Type 2 diabetes mellitus with diabetic chronic kidney disease; N18.3 - Chronic kidney disease, stage 3 ( moderate); Z79.4 - buttermaker continuous churn (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 For Surgery today Continue IVF D5LR and NPO Replete serum potassium and magnesium with potassium chloride and magnesium sulphate Analgesic with acetaminophen IV as needed. No narcotic due to acute encephalopathy from prior use Continue clonidine patch and IV llabetalol and hydralazine to get BP control Get repeat renal function panel, CBC and serum magnesium in the am.
[2018-10-26] MEDS ORDERED: Rocuronium Bromide 10 MG/ML (10ML VIAL) ONE (16:00)
[2018-10-26] MEDS ORDERED: Ondansetron PF 4 MG/2 ML Vial ONE (16:00)
[2018-10-26] MEDS ORDERED: PROPOFOL 200 MG/20 ML VIAL ONE (16:00)
[2018-10-26] MEDS ORDERED: PHENYLEPHRINE-NS 100 MCG/ML 10 ML SYRINGE ONE (16:00)
[2018-10-26] MEDS ORDERED: Succinylcholine Chloride 20 MG/ML 10 ml SYRINGE FS ONE (16:00)
[2018-10-26] MEDS ORDERED: ePHEDrine 50 MG/ML VIAL ONE (16:00)
[2018-10-26] MEDS ORDERED: Lidocaine 1% PF 5 ML VIAL ONE (16:00)
[2018-10-26] MEDS ORDERED: Glycopyrrolate 0.2 MG/ML 5 ML SYRINGE ONE (16:00)
[2018-10-26] MEDS ORDERED: Promethazine HCl 25 MG/ML VIAL SLOW IVP PRN (18:14)
[2018-10-26] MEDS ORDERED: Ondansetron HCl/PF 4 MG/2 ML Vial IVP PRN (18:14)
[2018-10-26] MEDS ORDERED: Promethazine HCl 25 MG/ML VIAL IM PRN (18:14)
[2018-10-26] MEDS: Atorvastatin Calcium 40 MG TAB PO SCH (20:57)
[2018-10-26] MEDS: Lidocaine 5% Patch TD SCH (20:58)
[2018-10-26] MEDS: Nicotine 14 MG PATCH TOP SCH (20:59)
[2018-10-26] MEDS ORDERED: Morphine 2 MG/ML SYRINGE SLOW IVP SCH (23:15)
--- NOTE | 2018-10-27 03:34 | OP ---
DATE OF PROCEDURE: 10/26/2018 PREOPERATIVE DIAGNOSIS: Small bowel obstruction, recurrent. POSTOPERATIVE DIAGNOSIS: Small bowel obstruction, recurrent. PROCEDURE: Laparoscopic lysis of adhesions. HISTORY OF PRESENT ILLNESS: Ms. Mosqueda is a 63-year-old woman with Crohn's disease. She has a history of small bowel obstruction in the past causing ischemia of the small intestine and bowel resection. She has presented several times and recent history with small-bowel obstruction, which has improved with conservative management, but on this admission, she had 2 episodes of bowel obstruction within about a week of each other and the recommendation was made to proceed to the operating room for laparoscopic possible open lysis of adhesions. DESCRIPTION OF PROCEDURE: After informed consent was obtained and appropriate preoperative antibiotics administered, the patient was taken to the operating room. She was placed in supine position and general endotracheal anesthesia was administered. She was prepped and draped in a standard sterile fashion. An NG tube and Quevedo catheter were already in place preoperatively. Local anesthesia was infused through skin and subcutaneous tissues at the level of the umbilicus. A transverse skin incision was made and dissection was carried down to the fascia, which was incised under direct vision. The peritoneum was identified, entered and palpated. There were some filmy omental adhesions, but a space was able to be created and a 5 mm trocar advanced into the abdominal cavity. Carbon dioxide gas was administered to a pressure of 15 mmHg, which the patient tolerated well and the laparoscope was advanced into the abdominal cavity, which was carefully examined. No evidence of trocar injury and only omental adhesions were seen at the level of the umbilicus. A clear space in the right upper quadrant was identified. Local anesthesia was infused. A skin incision was made and a 5 mm port was placed under direct laparoscopic vision. The camera was moved to that position and an additional clear space in the right lower abdomen was identified and another trocar placed in the same manner. The adhesions surrounding the umbilical trocar were taken down sharply through the avascular plane using laparoscopic scissors. Only omental adhesions to the anterior abdominal wall were encountered, although there were multiple small bowel adhesions to the omentum. These bowel loops appeared dilated and partially obstructed. Once the omental adhesions were taken down, an additional dissecting trocar was placed in the lower midline and the omentum and small bowel elevated and the adhesions between them carefully taken down sharply through the avascular plane, unkinking the dilated intestine in this area. Multiple interloop adhesions as well as adhesions between the small bowel mesentery were taken down in the same manner. After these adhesions were taken down, the bowel did appear to be less distended than before. The ileocecal valve was identified and the small bowel run from the ileocecal valve to the ligament of Treitz taking down multiple interloop adhesions as they were encountered. The patient's previous anastomosis was identified and was widely patent. The small bowel was then carefully run again from the ligament of Treitz to the ileocecal valve and no evidence of bowel injury at the multiple adhesion sites was identified. The bowel went from being fairly dilated in the proximal jejunum to being normal caliber in the ileum. It was felt that the patient had multiple points of partial obstruction causing her recurrent bouts of bowel obstruction rather than one single point of obstruction. The bowel appeared entirely viable without evidence of ischemia or stenosis. There was no creeping fat or other typical changes of Crohn's disease visible. The omentum was returned to its normal anatomic position and the right upper and lower quadrant and lower midline trocars removed under direct laparoscopic vision. Carbon dioxide gas was then allowed to desufflate through the umbilical trocar, which was removed. The fascia was closed under direct vision with a 0-Vicryl suture on a UR6 needle with excellent technical result. Additional local anesthesia was infused and the skin incisions were closed with 4-0 subcuticular Monocryl suture. Dermabond dressings were placed. The patient was extubated and taken to Recovery in good condition. ESTIMATED BLOOD LOSS: Minimal. COMPLICATIONS: There were no complications. SPECIMENS: There were no specimens. Job ID: [id number]
[2018-10-27 05:44] LABS: #Basophils 0.1 thou/uL (0.0-0.2); #Eosinphils 0.1 thou/uL (0.0-0.7); #Lymphocytes 1.7 thou/uL (1.20-3.40); #Monocytes 0.7 thou/uL (0.11-0.59); #Neutrophils 4.2 thou/uL (1.40-6.50); %Basophils 0.8 % (0.0-1.0); %Eosinophils 1.9 % (0.0-10.0); %Lymphocytes 25.3 % (21.0-51.0); %Monocytes 10.2 % (0.0-10.0); %Neutrophils 61.7 % (42.0-75.0); Hemoglobin 13.3 g/dL (12.0-16.0); Mean Corpuscular HGB CONC 33.5 g/dL (32.0-36.0); Mean Corpuscular Hemoglobin 30.9 pg (27.0-31.0); Mean Corpuscular Volume 92.3 fL (78.0-98.0); Mean Platelet Volume 8.1 fL (7.4-10.4); Platelet Count 219 thou/uL (130-400); RBC Distribution Width 15.7 % (11.5-14.5); Red Blood Cell (RBC) Count 4.31 mill/uL (4.20-5.40); White Blood Cell (WBC) Count 6.9 thou/uL (4.8-10.8)
[2018-10-27] MEDS: Levothyroxine Sodium 100 MCG TAB PO SCH (06:24)
[2018-10-27] MEDS: Pantoprazole 40 MG VIAL IVP SCH ×2 (08:49→21:18)
[2018-10-27] MEDS: Carvedilol 25 MG TAB PO SCH ×2 (08:50→21:17)
[2018-10-27] MEDS: FLUoxetine HCl 20 MG CAP PO SCH (08:50)
[2018-10-27] MEDS: Calcitriol 0.25 MCG CAP PO SCH ×2 (08:50→21:17)
[2018-10-27] MEDS: Gabapentin 300 MG CAP PO SCH ×2 (08:50→21:17)
[2018-10-27] MEDS: NIFEdipine XL 60 MG TAB PO SCH (08:50)
[2018-10-27] MEDS: Lidocaine Patch Removal TOP SCH (08:51)
[2018-10-27] MEDS: Dextrose 5%-Lactated Ringers 1,000 ML IV SCH ×2 (08:51→21:25)
[2018-10-27] MEDS: Enoxaparin Sodium 40 MG/0.4 ML SYRINGE SC SCH (08:51)
[2018-10-27] MEDS: hydrALAZINE 25 MG TAB PO SCH ×3 (08:51→21:17)
[2018-10-27] MEDS: Acetaminophen 325 MG TAB PO PRN (09:00)
[2018-10-27 09:28] LABS: ALT (SGPT) 46 U/L (8-55); AST (SGOT) 88 U/L (5-34); Albumin 3.2 g/dL (3.4-4.8); Alkaline Phosphatase 314 U/L (40-150); Anion Gap 11 mmol/L (10-20); BUN (Urea Nitrogen) 7 mg/dL (9.8-20.1); Bilirubin, Total 0.4 mg/dL (0.2-1.2); Calc. Creatinine Clearance 58 mL/min (70-130); Calcium 9.1 mg/dL (7.8-10.44); Carbon Dioxide 26 mmol/L (23-31); Chloride 107 mmol/L (98-107); Estimated GFR-MDRD 46; Globulin 3.6 g/dL (2.4-3.5); Glucose 131 mg/dL (80-115); Magnesium 1.9 mg/dL (1.6-2.6); Potassium 3.8 mmol/L (3.5-5.1); Protein, Total 6.8 g/dL (6.0-8.3); Sodium 140 mmol/L (136-145)
--- NOTE | 2018-10-27 12:21 | PDOC.HOSPP ---
- Subjective Encounter Date: 10/27/18 Encounter Time: 11:19 Subjective: 63 y/o female with crohns, prior SBO admitted with abdominal pain and found to have SBO. BP went up due to inability to continue oral antihypertensives and she was moved to ICU for Cardene infusion. Patient also developed some confusion. Intestinal obstruction has resolved and patient is back on diet. Tolerated liquid diet but developed abdominal pain with advancement to regular diet and later started vomiting. KUB was suggestive of intestinal obstruction and NG decompression was restarted. Subsequently was taken to OR for lap adhesiolysis on 10/26/2018. Feeling better. Wants to eat. No BM yet. - Objective Vital Signs & Weight: Vital Signs (12 hours) Temp Pulse Resp BP BP Pulse Ox 10/27/18 08:51 98 10/27/18 08:50 98 10/27/18 08:00 100 10/27/18 07:29 99.0 F 98 16 157/98 H 100 10/27/18 04:00 98.8 F 93 20 156/96 H 93 L Weight Admit Weight 198 lb 6.4 oz Weight 198 lb 6.4 oz Most Recent Monitor Data Heart Rate from ECG 90 NIBP 146/89 NIBP BP-Mean 108 Respiration from ECG 23 SpO2 100 I&O: 10/26/18 10/27/18 10/28/18 06:59 06:59 06:59 Intake Total 1250 1150 Output Total 3100 1720 Balance -1850 -570 Result Diagrams: 10/27/18 04:50 10/27/18 08:54 Additional Labs: Accuchecks 10/27/18 10/27/18 10/26/18 12:09 05:23 20:12 POC Glucose 119 H 105 119 H 10/26/18 13:51 POC Glucose 117 H ROS - Medication Medications: Active Medications Generic Name Dose Route Start Last Admin Trade Name Freq PRN Reason Stop Dose Admin Acetaminophen 650 mg 10/23/18 12:00 10/27/18 09:00 Tylenol PO 650 mg Q6H PRN Administration Fever/Mild Pain Atorvastatin Calcium 40 mg 10/21/18 21:00 10/26/18 20:57 Lipitor PO 40 mg HS JOSSY Administration Calcitriol 0.5 mcg 10/21/18 09:00 10/27/18 08:50 Rocaltrol PO 0.5 mcg BID JOSSY Administration Carvedilol 25 mg 10/21/18 21:00 10/27/18 08:50 Coreg PO 25 mg BID JOSSY Administration Enoxaparin Sodium 40 mg 10/26/18 09:00 10/27/18 08:51 Lovenox SC 40 mg 0900 JOSSY Administration Fluoxetine HCl 60 mg 10/21/18 09:00 10/27/18 08:50 Prozac PO 60 mg DAILY JOSSY Administration Gabapentin 300 mg 10/21/18 09:00 10/27/18 08:50 Neurontin PO 300 mg BID JOSSY Administration Hydralazine HCl 10 mg 10/18/18 04:42 10/26/18 12:29 Apresoline SLOW IVP 10 mg Q4H PRN Administration SBP>160/100 Hydralazine HCl 25 mg 10/24/18 09:00 10/27/18 08:51 Apresoline PO 25 mg TID JOSSY Administration Dextrose/Lactated Ringer's 1,000 mls @ 100 mls/hr 10/24/18 10:30 10/27/18 08: 51 D5 Lr IV 1,000 mls .Q10H JOSSY Administration Insulin Human Lispro 0 units 10/18/18 09:44 10/20/18 18:43 Humalog SC 2 units .MILD SLIDING SCALE PRN Administration Mild Correctional Scale Labetalol HCl 20 mg 10/25/18 12:38 10/26/18 11:06 Normodyne SLOW IVP 4 ml Q4H PRN Administration SBP GREATER THAN 160 Levothyroxine Sodium 100 mcg 10/22/18 06:00 10/27/18 06:24 Synthroid PO 100 mcg 0600 JOSSY Administration Lidocaine 1 patch 10/19/18 21:00 10/26/18 20:58 Lidoderm 5% Patch TD 1 patch HS JOSSY Administration Miscellaneous Medication 1 each 10/20/18 09:00 10/27/18 08:51 Lidocaine Patch Removal TOP 1 each QAM JOSSY Administration Nicotine 14 mg 10/20/18 22:00 10/26/18 20:59 Nicoderm Patch TOP 14 mg Q24HR JOSSY Administration Nifedipine 120 mg 10/23/18 09:00 10/27/18 08:50 Procardia Xl PO 120 mg DAILY JOSSY Administration Ondansetron HCl 4 mg 10/18/18 13:47 10/25/18 09:52 Zofran IVP 4 mg Q6H PRN Administration Nausea/Vomiting Pantoprazole Sodium 40 mg 10/26/18 09:00 10/27/18 08:49 Protonix IVP 40 mg Q12HR JOSSY Administration Brexpiprazole [ 0 each 10/21/18 09:00 10/26/18 08:21 Rexulti] 2 Mg PO Not Given DAILY JOSSY Quetiapine Fumarate 200 mg 10/21/18 21:00 10/26/18 20:58 Seroquel PO 200 mg HS JOSSY Administration Sodium Chloride 10 ml 10/20/18 21:00 10/27/18 08:52 Flush - Normal Saline IVF Not Given Q12HR JOSSY Zolpidem Tartrate 5 mg 10/20/18 21:42 10/23/18 01:42 Ambien PO 5 mg HS PRN Administration Insomnia - Exam awake alert Eye: anicteric sclera ENT: normocephalic atraumatic, dry oral mucosa ENT - other findings: NG tube in place Neck: supple, symmetric, no JVD Heart: RRR Respiratory: no wheezes, no rales, no ronchi Gastrointestinal: soft, non-distended, diminished bowl sounds Extremities: no cyanosis, no edema Neurological: CN's grossly intact, no focal deficits Neurological - other findings: Ambulant Psychiatric: normal affect, A&O x 3 Hosp A/P (1) SBO (small bowel obstruction) Code(s): K56.69 - OTHER INTESTINAL OBSTRUCTION * DO NOT USE * Status: Acute (2) Accelerated hypertension Code(s): I10 - ESSENTIAL (PRIMARY) HYPERTENSION Status: Acute (3) MOOK (acute kidney injury) Code(s): N17.9 - ACUTE KIDNEY FAILURE, UNSPECIFIED Status: Acute (4) Crohns disease Code(s): K50.90 - CROHN'S DISEASE, UNSPECIFIED, WITHOUT COMPLICATIONS Status: Chronic Qualifiers: Gastrointestinal tract location: unspecified location Digestive disease complication type: unspecified complication Qualified Code(s): K50.919 - Crohn 's disease, unspecified, with unspecified complications (5) DM type 2 (diabetes mellitus, type 2) Status: Chronic Qualifiers: Diabetes mellitus mcc insulin use: with termite control technician use Diabetes mellitus complication status: with kidney complications Diabetes mellitus complication detail: with chronic kidney disease Chronic kidney disease stage : stage 3 (moderate) Qualified Code(s): E11.22 - Type 2 diabetes mellitus with diabetic chronic kidney disease; N18.3 - Chronic kidney disease, stage 3 ( moderate); Z79.4 - retirement (current) use of insulin (6) Diastolic heart failure Code(s): I50.30 - UNSPECIFIED DIASTOLIC (CONGESTIVE) HEART FAILURE Status: Chronic Qualifiers: Heart failure chronicity: acute on chronic Qualified Code(s): I50.33 - Acute on chronic diastolic (congestive) heart failure (7) Acute encephalopathy Code(s): G93.40 - ENCEPHALOPATHY, UNSPECIFIED Status: Resolved (8) Hypernatremia Code(s): E87.0 - HYPEROSMOLALITY AND HYPERNATREMIA Status: Acute (9) Hypokalemia Code(s): E87.6 - HYPOKALEMIA Status: Resolved (10) Hypomagnesemia Code(s): E83.42 - HYPOMAGNESEMIA Status: Acute - Plan Post Op care as Per Surgery NPO to continue. Diet as per surgery. Continue IVF D5LR and NPO Analgesic as needed Continue clonidine patch and IV llabetalol and hydralazine to get BP control Get repeat renal function panel, CBC and serum magnesium in the am.
[2018-10-27] MEDS: Atorvastatin Calcium 40 MG TAB PO SCH (21:16)
[2018-10-27] MEDS: Lidocaine 5% Patch TD SCH (21:17)
[2018-10-27] MEDS: Nicotine 14 MG PATCH TOP SCH (21:18)
[2018-10-27] MEDS ORDERED: HYDROcodone/Acetaminophen 7.5/325 mg Tablet PO SCH (21:45)
[2018-10-28] MEDS: Levothyroxine Sodium 100 MCG TAB PO SCH (05:32)
[2018-10-28] MEDS: Dextrose 5%-Lactated Ringers 1,000 ML IV SCH ×2 (05:35→13:53)
[2018-10-28 06:28] LABS: Anion Gap 12 mmol/L (10-20); BUN (Urea Nitrogen) 7 mg/dL (9.8-20.1); BUN/Creatinine Ratio 4.93; Calc. Creatinine Clearance 57 mL/min (70-130); Calcium 8.8 mg/dL (7.8-10.44); Carbon Dioxide 23 mmol/L (23-31); Chloride 108 mmol/L (98-107); Estimated GFR-MDRD 45; Glucose 128 mg/dL (80-115); Magnesium 1.7 mg/dL (1.6-2.6); Phosphorus 2.9 mg/dL (2.3-4.7); Potassium 3.3 mmol/L (3.5-5.1); Sodium 140 mmol/L (136-145)
[2018-10-28] MEDS ORDERED: Potassium Chloride 40 MEQ in Premix Bag 1 BAG IVPB SCH (08:45)
[2018-10-28] MEDS ORDERED: Magnesium 2 GM/50 ML 2 GM in Premix Bag 1 BAG IVPB SCH (08:45)
[2018-10-28] MEDS: Calcitriol 0.25 MCG CAP PO SCH ×2 (08:46→20:22)
[2018-10-28] MEDS: NIFEdipine XL 60 MG TAB PO SCH (08:46)
[2018-10-28] MEDS: Gabapentin 300 MG CAP PO SCH ×2 (08:46→20:23)
[2018-10-28] MEDS: FLUoxetine HCl 20 MG CAP PO SCH (08:46)
[2018-10-28] MEDS: hydrALAZINE 25 MG TAB PO SCH ×3 (08:46→20:23)
[2018-10-28] MEDS: Carvedilol 25 MG TAB PO SCH ×2 (08:47→20:22)
[2018-10-28] MEDS: Pantoprazole 40 MG VIAL IVP SCH ×2 (08:47→20:23)
[2018-10-28] MEDS: Lidocaine Patch Removal TOP SCH (08:47)
[2018-10-28] MEDS: Enoxaparin Sodium 40 MG/0.4 ML SYRINGE SC SCH (08:47)
[2018-10-28] MEDS: Potassium Chloride 20 MEQ in Premix Bag 1 BAG IVPB SCH ×3 (10:40→20:40)
[2018-10-28] MEDS ORDERED: Pharmacy to MANAGE TPN ELECTROLYTES IVPB PRN (12:43)
--- NOTE | 2018-10-28 13:38 | RAD ---
PORTABLE AP ABDOMINAL RADIOGRAPH: History: Status post LAURA. Follow up evaluation from study on 10-25-18. FINDINGS: The lung bases are mostly obscured. Surgical clips overlie the right upper quadrant. Nasogastric tube has been removed. There is a small amount of residual contrast seen in the region of the hepatic fle xure. The bowel gas pattern is overall nonspecific. Dilated loops of small bowel seen on prior exam a re much less prominent on this exam. Vascular calcifications and phleboliths again overlie the pelvis . Degenerative changes are noted in the spine. IMPRESSION: Nonspecific bowel gas pattern. POS: [facility]
--- NOTE | 2018-10-28 14:05 | PDOC.GSPN ---
Surgery Progress Note: Subj - Subjective Narrative: But her abdominal pain overall has much improved. No nausea or vomiting. She hasn't had flatus or bowel movements yet but has tolerated having her NG tube removed. She is hungry. Vital signs are okay and abdominal exam is benign. Bowel sounds are present. Incisions look good. Assessment/plan: Doing well status post laparoscopic lysis of adhesions. Bowel gas pattern looks normal on KUB today but there is a lot of gas in the colon. I will start her on clear liquids. I anticipate that her bowel function will resume soon. She does have a Mediport so I went ahead and ordered TPN in case she doesn't tolerate advancement of her diet. Surgery Progress Note: Obj - Vital signs Vital signs: Vital Signs - Most Recent Temp Pulse Resp BP Pulse Ox 98.3 F 87 20 116/80 99 10/28/18 11:38 10/28/18 11:38 10/28/18 11:38 10/28/18 11:38 10/28/18 11:38 Surgery Progress Note: Results - Labs Result Diagrams: 10/27/18 04:50 10/28/18 05:49 Lab results: Laboratory Results - last 24 hr 10/28/18 10/28/18 10/28/18 05:09 05:49 11:42 Sodium 140 Potassium 3.3 L Chloride 108 H Carbon Dioxide 23 Anion Gap 12 BUN 7 L Creatinine 1.42 H Estimated GFR (MDRD) 45 BUN/Creatinine Ratio 4.93 Glucose 128 H POC Glucose 135 H 116 H Calcium 8.8 Phosphorus 2.9 Magnesium 1.7 Albumin 3.0 L
--- NOTE | 2018-10-28 17:20 | PRG ---
DATE OF SERVICE: 10/28/2018 SUBJECTIVE: The patient is postop day two, she is sitting up in beach chair without any complaint. So far, she is tolerating clear liquids. There is no nausea or vomiting. No flatus or BM yet. PHYSICAL EXAMINATION: VITAL SIGNS: Temperature is 98.3, blood pressure 112/78, pulse of 86. GENERAL: She is alert, conversant, no distress. HEENT: Exam shows anicteric sclerae. Oropharynx is moist. CV: Normal S1, S2. Regular rate and rhythm. CHEST: Shows a breath sound. ABDOMEN: Protuberant, tender but no guarding or rebound. She has very faint but present bowel sounds. EXTREMITIES: Shows no edema. LABORATORY DATA: Electrolytes within normal range. Potassium 3.3, creatinine 1.42, BUN of 7. ASSESSMENT: 1. Status post adhesiolysis for multifocal constriction of distal small bowel from adhesions, clinically recovering well with signs of returning GI function. 2. Crohn disease, in remission. RECOMMENDATION: Overall doing fine from GI standpoint. No other GI input at this point. We will sign off. Please recall if needed. Job ID: [id number]
--- NOTE | 2018-10-28 17:34 | PDOC.HOSPP ---
- Subjective Encounter Date: 10/28/18 Encounter Time: 13:32 Subjective: 63 y/o female with crohns, prior SBO admitted with abdominal pain and found to have SBO. BP went up due to inability to continue oral antihypertensives and she was moved to ICU for Cardene infusion. Patient also developed some confusion. Intestinal obstruction has resolved and patient is back on diet. Tolerated liquid diet but developed abdominal pain with advancement to regular diet and later started vomiting. KUB was suggestive of intestinal obstruction and NG decompression was restarted. Subsequently was taken to OR for lap adhesiolysis on 10/26/2018. Feeling better. NG tube is off and patient is tolerating clear liquid. No BM yet. - Objective Vital Signs & Weight: Vital Signs (12 hours) Temp Pulse Resp BP BP Pulse Ox 10/28/18 16:52 98.9 F 92 20 133/69 95 10/28/18 15:20 86 112/78 10/28/18 11:38 98.3 F 87 20 116/80 99 10/28/18 08:46 94 10/28/18 08:45 100 10/28/18 07:24 98.6 F 94 20 125/82 100 Weight Admit Weight 198 lb 6.4 oz Weight 198 lb 6.4 oz Most Recent Monitor Data Heart Rate from ECG 90 NIBP 146/89 NIBP BP-Mean 108 Respiration from ECG 23 SpO2 100 I&O: 10/27/18 10/28/18 10/29/18 06:59 06:59 06:59 Intake Total 1150 1150 Output Total 1720 1085 300 Balance -570 65 -300 Result Diagrams: 10/27/18 04:50 10/28/18 05:49 Additional Labs: Accuchecks 10/28/18 10/28/18 10/28/18 16:55 11:42 05:09 POC Glucose 162 H 116 H 135 H 10/27/18 20:21 POC Glucose 132 H ROS - Medication Medications: Active Medications Generic Name Dose Route Start Last Admin Trade Name Freq PRN Reason Stop Dose Admin Acetaminophen 650 mg 10/23/18 12:00 10/27/18 09:00 Tylenol PO 650 mg Q6H PRN Administration Fever/Mild Pain Atorvastatin Calcium 40 mg 10/21/18 21:00 10/27/18 21:16 Lipitor PO 40 mg HS JOSSY Administration Calcitriol 0.5 mcg 10/21/18 09:00 10/28/18 08:46 Rocaltrol PO 0.5 mcg BID JOSSY Administration Carvedilol 25 mg 10/21/18 21:00 10/28/18 08:47 Coreg PO 25 mg BID JOSSY Administration Enoxaparin Sodium 40 mg 10/26/18 09:00 10/28/18 08:47 Lovenox SC 40 mg 0900 JOSSY Administration Fluoxetine HCl 60 mg 10/21/18 09:00 10/28/18 08:46 Prozac PO 60 mg DAILY JOSSY Administration Gabapentin 300 mg 10/21/18 09:00 10/28/18 08:46 Neurontin PO 300 mg BID JOSSY Administration Hydralazine HCl 10 mg 10/18/18 04:42 10/26/18 12:29 Apresoline SLOW IVP 10 mg Q4H PRN Administration SBP>160/100 Hydralazine HCl 25 mg 10/24/18 09:00 10/28/18 15:20 Apresoline PO Not Given TID JOSSY Dextrose/Lactated Ringer's 1,000 mls @ 100 mls/hr 10/24/18 10:30 10/28/18 13: 53 D5 Lr IV Not Given .Q10H JOSSY Potassium Chloride 20 meq/ 100 mls @ 50 mls/hr 10/28/18 09:00 10/28/18 15:20 Device IVPB 10/29/18 04:59 100 mls Q6H JOSSY Administration Insulin Human Lispro 0 units 10/18/18 09:44 10/20/18 18:43 Humalog SC 2 units .MILD SLIDING SCALE PRN Administration Mild Correctional Scale Labetalol HCl 20 mg 10/25/18 12:38 10/26/18 11:06 Normodyne SLOW IVP 4 ml Q4H PRN Administration SBP GREATER THAN 160 Levothyroxine Sodium 100 mcg 10/22/18 06:00 10/28/18 05:32 Synthroid PO 100 mcg 0600 [facility] Administration Lidocaine 1 patch 10/19/18 21:00 10/27/18 21:17 Lidoderm 5% Patch TD 1 patch HS JOSSY Administration Miscellaneous Medication 1 each 10/20/18 09:00 10/28/18 08:47 Lidocaine Patch Removal TOP 1 each QAM JOSSY Administration Nicotine 14 mg 10/20/18 22:00 10/27/18 21:18 Nicoderm Patch TOP 14 mg Q24HR JOSSY Administration Nifedipine 120 mg 10/23/18 09:00 10/28/18 08:46 Procardia Xl PO 120 mg DAILY JOSSY Administration Ondansetron HCl 4 mg 10/18/18 13:47 10/25/18 09:52 Zofran IVP 4 mg Q6H PRN Administration Nausea/Vomiting Pantoprazole Sodium 40 mg 10/26/18 09:00 10/28/18 08:47 Protonix IVP 40 mg Q12HR JOSSY Administration Brexpiprazole [ 0 each 10/21/18 09:00 10/28/18 08:48 Rexulti] 2 Mg PO Not Given DAILY JOSSY Quetiapine Fumarate 200 mg 10/21/18 21:00 10/27/18 21:18 Seroquel PO 200 mg HS JOSSY Administration Sodium Chloride 10 ml 10/20/18 21:00 10/28/18 08:47 Flush - Normal Saline IVF 10 ml Q12HR JOSSY Administration Zolpidem Tartrate 5 mg 10/20/18 21:42 10/23/18 01:42 Ambien PO 5 mg HS PRN Administration Insomnia - Exam awake alert Eye: anicteric sclera ENT: normocephalic atraumatic, moist mucosa Neck: supple, symmetric Heart: RRR Respiratory: no wheezes, no rales, no ronchi, normal chest expansion Gastrointestinal: soft, non-tender, non-distended, normal bowel sounds, diminished bowl sounds (obese) Extremities: no cyanosis, no edema Neurological: CN's grossly intact Musculoskeletal: normal tone, normal strength Psychiatric: normal affect, A&O x 3 Hosp A/P (1) SBO (small bowel obstruction) Code(s): K56.69 - OTHER INTESTINAL OBSTRUCTION * DO NOT USE * Status: Acute (2) Accelerated hypertension Code(s): I10 - ESSENTIAL (PRIMARY) HYPERTENSION Status: Acute (3) MOOK (acute kidney injury) Code(s): N17.9 - ACUTE KIDNEY FAILURE, UNSPECIFIED Status: Acute (4) Crohns disease Code(s): K50.90 - CROHN'S DISEASE, UNSPECIFIED, WITHOUT COMPLICATIONS Status: Chronic Qualifiers: Gastrointestinal tract location: unspecified location Digestive disease complication type: unspecified complication Qualified Code(s): K50.919 - Crohn 's disease, unspecified, with unspecified complications (5) DM type 2 (diabetes mellitus, type 2) Status: Chronic Qualifiers: Diabetes mellitus retirement insulin use: with retirement use Diabetes mellitus complication status: with kidney complications Diabetes mellitus complication detail: with chronic kidney disease Chronic kidney disease stage : stage 3 (moderate) Qualified Code(s): E11.22 - Type 2 diabetes mellitus with diabetic chronic kidney disease; N18.3 - Chronic kidney disease, stage 3 ( moderate); Z79.4 - [facility] (current) use of insulin (6) Diastolic heart failure Code(s): I50.30 - UNSPECIFIED DIASTOLIC (CONGESTIVE) HEART FAILURE Status: Chronic Qualifiers: Heart failure chronicity: acute on chronic Qualified Code(s): I50.33 - Acute on chronic diastolic (congestive) heart failure (7) Acute encephalopathy Code(s): G93.40 - ENCEPHALOPATHY, UNSPECIFIED Status: Resolved (8) Hypernatremia Code(s): E87.0 - HYPEROSMOLALITY AND HYPERNATREMIA Status: Acute (9) Hypokalemia Code(s): E87.6 - HYPOKALEMIA Status: Resolved (10) Hypomagnesemia Code(s): E83.42 - HYPOMAGNESEMIA Status: Acute - Plan Tolerating clear liquid. Diet as per surgery. Replete serum magnesium and potassium Start ensure clears. DC IVF Analgesic as needed Continue oral antihypertensives
[2018-10-28] MEDS: Atorvastatin Calcium 40 MG TAB PO SCH (20:22)
[2018-10-28] MEDS: Lidocaine 5% Patch TD SCH (20:23)
[2018-10-28] MEDS: Nicotine 14 MG PATCH TOP SCH (20:26)
[2018-10-28] MEDS: Fat Emulsion 200 ML, Sodium Acetate 2 mEq/ml 40 MEQ, Sodium Chloride 30 MEQ, Potassium ... IV SCH (23:00)
[2018-10-29] MEDS: Dextrose 5%-Lactated Ringers 1,000 ML IV SCH ×3 (01:57→22:14)
[2018-10-29] MEDS: Potassium Chloride 20 MEQ in Premix Bag 1 BAG IVPB SCH (02:38)
[2018-10-29] MEDS ORDERED: HYDROcodone/Acetaminophen 5/325 mg Tablet PO SCH (03:15)
[2018-10-29] MEDS: Levothyroxine Sodium 100 MCG TAB PO SCH (05:18)
[2018-10-29] MEDS ORDERED: Fluticasone Propionate Nasal Spray 16 gm Bottle NASAL SCH (06:15)
[2018-10-29] MEDS: FLUoxetine HCl 20 MG CAP PO SCH (08:07)
[2018-10-29] MEDS: Enoxaparin Sodium 40 MG/0.4 ML SYRINGE SC SCH (08:07)
[2018-10-29] MEDS: Calcitriol 0.25 MCG CAP PO SCH ×2 (08:07→20:43)
[2018-10-29] MEDS: hydrALAZINE 25 MG TAB PO SCH ×3 (08:07→20:43)
[2018-10-29] MEDS: Pantoprazole 40 MG VIAL IVP SCH ×2 (08:07→20:47)
[2018-10-29] MEDS: Lidocaine Patch Removal TOP SCH (08:07)
[2018-10-29] MEDS: NIFEdipine XL 60 MG TAB PO SCH (08:07)
[2018-10-29] MEDS: Gabapentin 300 MG CAP PO SCH ×2 (08:07→20:44)
[2018-10-29] MEDS: Carvedilol 25 MG TAB PO SCH ×2 (08:07→20:44)
[2018-10-29 10:20] LABS: Anion Gap 14 mmol/L (10-20); BUN (Urea Nitrogen) 9 mg/dL (9.8-20.1); Calc. Creatinine Clearance 51 mL/min (70-130); Carbon Dioxide 22 mmol/L (23-31); Chloride 107 mmol/L (98-107); Estimated GFR-MDRD 40; Glucose 136 mg/dL (80-115); Potassium 3.8 mmol/L (3.5-5.1); Sodium 139 mmol/L (136-145)
--- NOTE | 2018-10-29 17:20 | PDOC.GSPN ---
Surgery Progress Note: Subj - Subjective Narrative: Patient feels fine. She denies any abdominal pain or nausea and is tolerating her clear liquid diet. She has not yet passed gas or had a bowel movement however. Her abdominal exam is concerning. She has some genoveva-incisional tenderness. Her incisions look good. Bowel sounds are present. Assessment/plan: Doing well from a surgical standpoint but still awaiting return of bowel function. Continue clear liquids as tolerated. Patient is on TPN given prolonged nothing by mouth status. Surgery Progress Note: Obj - Vital signs Vital signs: Vital Signs - Most Recent Temp Pulse Resp BP Pulse Ox 98.3 F 88 16 124/84 95 10/29/18 07:52 10/29/18 14:02 10/29/18 07:52 10/29/18 14:02 10/29/18 08:10 Surgery Progress Note: Results - Labs Result Diagrams: 10/27/18 04:50 10/29/18 09:38 Lab results: Laboratory Results - last 24 hr 10/29/18 10/29/18 10/29/18 05:25 09:38 11:26 Sodium 139 Potassium 3.8 Chloride 107 Carbon Dioxide 22 L Anion Gap 14 BUN 9 L Creatinine 1.58 H Estimated GFR (MDRD) 40 Glucose 136 H POC Glucose 119 H 148 H Calcium 9.0 10/29/18 16:52 Sodium Potassium Chloride Carbon Dioxide Anion Gap BUN Creatinine Estimated GFR (MDRD) Glucose POC Glucose 107 Calcium
[2018-10-29] MEDS: Atorvastatin Calcium 40 MG TAB PO SCH (20:43)
[2018-10-29] MEDS: Lidocaine 5% Patch TD SCH (20:44)
[2018-10-29] MEDS: Nicotine 14 MG PATCH TOP SCH (20:47)
--- NOTE | 2018-10-29 21:04 | PDOC.HOSPP ---
- Subjective Encounter Date: 10/29/18 Encounter Time: 11:42 Subjective: 63 y/o female with crohns, prior SBO admitted with abdominal pain and found to have SBO. BP went up due to inability to continue oral antihypertensives and she was moved to ICU for Cardene infusion. Patient also developed some confusion. Intestinal obstruction has resolved and patient is back on diet. Tolerated liquid diet but developed abdominal pain with advancement to regular diet and later started vomiting. KUB was suggestive of intestinal obstruction and NG decompression was restarted. Subsequently was taken to OR for lap adhesiolysis on 10/26/2018. NG tube is off and patient is tolerating clear liquid but no BM or flatus. Now on TPN. - Objective Vital Signs & Weight: Vital Signs (12 hours) Pulse BP 10/29/18 20:43 87 129/85 10/29/18 14:02 88 124/84 Weight Admit Weight 198 lb 6.4 oz Weight 198 lb 6.4 oz Most Recent Monitor Data Heart Rate from ECG 90 NIBP 146/89 NIBP BP-Mean 108 Respiration from ECG 23 SpO2 100 I&O: 10/28/18 10/29/18 10/30/18 06:59 06:59 06:59 Intake Total 1150 2255 1130 Output Total 1085 800 Balance 65 1455 1130 Result Diagrams: 10/27/18 04:50 10/29/18 09:38 Additional Labs: Accuchecks 10/29/18 10/29/18 10/29/18 16:52 11:26 05:25 POC Glucose 107 148 H 119 H 10/28/18 20:30 POC Glucose 96 ROS - Medication Medications: Active Medications Generic Name Dose Route Start Last Admin Trade Name Freq PRN Reason Stop Dose Admin Acetaminophen 650 mg 10/23/18 12:00 10/27/18 09:00 Tylenol PO 650 mg Q6H PRN Administration Fever/Mild Pain Atorvastatin Calcium 40 mg 10/21/18 21:00 10/29/18 20:43 Lipitor PO 40 mg HS JOSSY Administration Calcitriol 0.5 mcg 10/21/18 09:00 10/29/18 20:43 Rocaltrol PO 0.5 mcg BID JOSSY Administration Carvedilol 25 mg 10/21/18 21:00 10/29/18 20:44 Coreg PO 25 mg BID JOSSY Administration Enoxaparin Sodium 40 mg 10/26/18 09:00 10/29/18 08:07 Lovenox SC 40 mg 0900 JOSSY Administration Fluoxetine HCl 60 mg 10/21/18 09:00 10/29/18 08:07 Prozac PO 60 mg DAILY JOSSY Administration Gabapentin 300 mg 10/21/18 09:00 10/29/18 20:44 Neurontin PO 300 mg BID JOSSY Administration Hydralazine HCl 10 mg 10/18/18 04:42 10/26/18 12:29 Apresoline SLOW IVP 10 mg Q4H PRN Administration SBP>160/100 Hydralazine HCl 25 mg 10/24/18 09:00 10/29/18 20:43 Apresoline PO 25 mg TID JOSSY Administration Dextrose/Lactated Ringer's 1,000 mls @ 100 mls/hr 10/24/18 10:30 10/29/18 08: 44 D5 Lr IV Not Given .Q10H JOSSY Fat Emulsion Intravenous 200 1,686.7021 mls @ 70.279 mls/hr 10/28/18 22:00 23:00 ml/ Sodium Acetate 40 meq/ IV 1,686.7021 mls Sodium Chloride 30 meq/ 2200 JOSSY Administration Potassium Chloride 20 meq/ Potassium Phosphate 30 mmol/ Calcium Gluconate 10 meq/ Magnesium Sulfate 10 meq/ Multivitamins 10 ml/ Chromium/ Copper/Manganese/Seleni/Zn 5 ml/ Dextrose/Water/ Sterile Water/ Amino Acids Insulin Human Lispro 0 units 10/18/18 09:44 10/20/18 18:43 Humalog SC 2 units .MILD SLIDING SCALE PRN Administration Mild Correctional Scale Labetalol HCl 20 mg 10/25/18 12:38 10/26/18 11:06 Normodyne SLOW IVP 4 ml Q4H PRN Administration SBP GREATER THAN 160 Levothyroxine Sodium 100 mcg 10/22/18 06:00 10/29/18 05:18 Synthroid PO 100 mcg 0600 JOSSY Administration Lidocaine 1 patch 10/19/18 21:00 10/29/18 20:44 Lidoderm 5% Patch TD 1 patch HS JOSSY Administration Miscellaneous Medication 1 each 10/20/18 09:00 10/29/18 08:07 Lidocaine Patch Removal TOP 1 each QAM JOSSY Administration Nicotine 14 mg 10/20/18 22:00 10/29/18 20:47 Nicoderm Patch TOP 14 mg Q24HR JOSSY Administration Nifedipine 120 mg 10/23/18 09:00 10/29/18 08:07 Procardia Xl PO 120 mg DAILY JOSSY Administration Ondansetron HCl 4 mg 10/18/18 13:47 10/25/18 09:52 Zofran IVP 4 mg Q6H PRN Administration Nausea/Vomiting Pantoprazole Sodium 40 mg 10/26/18 09:00 10/29/18 20:47 Protonix IVP 40 mg Q12HR JOSSY Administration Brexpiprazole [ 0 each 10/21/18 09:00 10/29/18 08:08 Rexulti] 2 Mg PO Not Given DAILY JOSSY Quetiapine Fumarate 200 mg 10/21/18 21:00 10/29/18 20:43 Seroquel PO 200 mg HS JOSSY Administration Sodium Chloride 10 ml 10/20/18 21:00 10/29/18 20:53 Flush - Normal Saline IVF 10 ml Q12HR JOSSY Administration Sodium Chloride 10 ml 10/20/18 10:07 10/29/18 20:53 Flush - Normal Saline IVF 10 ml PRN PRN Administration Saline Flush Zolpidem Tartrate 5 mg 10/20/18 21:42 10/23/18 01:42 Ambien PO 5 mg HS PRN Administration Insomnia - Exam awake alert Eye: anicteric sclera ENT: normocephalic atraumatic, moist mucosa Neck: supple, symmetric Heart: RRR Respiratory: no wheezes, no rales, no ronchi, normal chest expansion Gastrointestinal: soft, non-distended, diminished bowl sounds Gastrointestinal - other findings: mild diffuse abdominal tenderness Extremities: no cyanosis, no edema Neurological: CN's grossly intact, no focal deficits Psychiatric: normal affect, A&O x 3 Hosp A/P (1) SBO (small bowel obstruction) Code(s): K56.69 - OTHER INTESTINAL OBSTRUCTION * DO NOT USE * Status: Acute (2) Accelerated hypertension Code(s): I10 - ESSENTIAL (PRIMARY) HYPERTENSION Status: Acute (3) MOOK (acute kidney injury) Code(s): N17.9 - ACUTE KIDNEY FAILURE, UNSPECIFIED Status: Acute (4) Crohns disease Code(s): K50.90 - CROHN'S DISEASE, UNSPECIFIED, WITHOUT COMPLICATIONS Status: Chronic Qualifiers: Gastrointestinal tract location: unspecified location Digestive disease complication type: unspecified complication Qualified Code(s): K50.919 - Crohn 's disease, unspecified, with unspecified complications (5) DM type 2 (diabetes mellitus, type 2) Status: Chronic Qualifiers: 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: with alf use Diabetes mellitus complication status: with kidney complications Diabetes mellitus complication detail: with chronic kidney disease Chronic kidney disease stage : stage 3 (moderate) Qualified Code(s): E11.22 - Type 2 diabetes mellitus with diabetic chronic kidney disease; N18.3 - Chronic kidney disease, stage 3 ( moderate); Z79.4 - alf (current) use of insulin (6) Diastolic heart failure Code(s): I50.30 - UNSPECIFIED DIASTOLIC (CONGESTIVE) HEART FAILURE Status: Chronic Qualifiers: Heart failure chronicity: acute on chronic Qualified Code(s): I50.33 - Acute on chronic diastolic (congestive) heart failure (7) Acute encephalopathy Code(s): G93.40 - ENCEPHALOPATHY, UNSPECIFIED Status: Resolved (8) Hypernatremia Code(s): E87.0 - HYPEROSMOLALITY AND HYPERNATREMIA Status: Acute (9) Hypokalemia Code(s): E87.6 - HYPOKALEMIA Status: Resolved (10) Hypomagnesemia Code(s): E83.42 - HYPOMAGNESEMIA Status: Acute - Plan Diet as per Gen surgery. Now on TPN. Monitor electrolytes and replete serum magnesium and potassium as appropriate Analgesic as needed Continue oral antihypertensives
[2018-10-29] MEDS: Fat Emulsion 200 ML, Sodium Acetate 2 mEq/ml 40 MEQ, Sodium Chloride 30 MEQ, Potassium ... IV SCH (22:07)
[2018-10-29] MEDS ORDERED: traMADol HCl 50 MG TAB PO SCH (22:15)
[2018-10-30] MEDS: Levothyroxine Sodium 100 MCG TAB PO SCH (05:53)
[2018-10-30 06:05] LABS: #Basophils 0.1 thou/uL (0.0-0.2); #Eosinphils 0.2 thou/uL (0.0-0.7); #Lymphocytes 1.9 thou/uL (1.20-3.40); #Monocytes 0.6 thou/uL (0.11-0.59); #Neutrophils 3.3 thou/uL (1.40-6.50); %Basophils 0.8 % (0.0-1.0); %Eosinophils 3.4 % (0.0-10.0); %Lymphocytes 30.9 % (21.0-51.0); %Monocytes 10.3 % (0.0-10.0); %Neutrophils 54.6 % (42.0-75.0); Hemoglobin 11.7 g/dL (12.0-16.0); Mean Corpuscular HGB CONC 32.6 g/dL (32.0-36.0); Mean Corpuscular Hemoglobin 30.1 pg (27.0-31.0); Mean Corpuscular Volume 92.1 fL (78.0-98.0); Mean Platelet Volume 7.7 fL (7.4-10.4); Platelet Count 282 thou/uL (130-400); RBC Distribution Width 15.5 % (11.5-14.5); Red Blood Cell (RBC) Count 3.88 mill/uL (4.20-5.40); White Blood Cell (WBC) Count 6.1 thou/uL (4.8-10.8)
[2018-10-30 06:28] LABS: Anion Gap 12 mmol/L (10-20); BUN (Urea Nitrogen) 12 mg/dL (9.8-20.1); Calc. Creatinine Clearance 54 mL/min (70-130); Calcium 8.8 mg/dL (7.8-10.44); Carbon Dioxide 24 mmol/L (23-31); Chloride 107 mmol/L (98-107); Estimated GFR-MDRD 42; Glucose 110 mg/dL (80-115); Magnesium 1.8 mg/dL (1.6-2.6); Potassium 3.6 mmol/L (3.5-5.1); Sodium 139 mmol/L (136-145)
[2018-10-30] MEDS: Calcitriol 0.25 MCG CAP PO SCH ×2 (08:09→20:42)
[2018-10-30] MEDS: Gabapentin 300 MG CAP PO SCH ×2 (08:09→20:42)
[2018-10-30] MEDS: hydrALAZINE 25 MG TAB PO SCH ×3 (08:10→20:43)
[2018-10-30] MEDS: Fluticasone Propionate Nasal Spray 16 gm Bottle NASAL SCH (08:10)
[2018-10-30] MEDS: FLUoxetine HCl 20 MG CAP PO SCH (08:10)
[2018-10-30] MEDS: NIFEdipine XL 60 MG TAB PO SCH (08:10)
[2018-10-30] MEDS: Enoxaparin Sodium 40 MG/0.4 ML SYRINGE SC SCH (08:10)
[2018-10-30] MEDS: Lidocaine Patch Removal TOP SCH (08:11)
[2018-10-30] MEDS: Carvedilol 25 MG TAB PO SCH ×2 (08:11→20:42)
[2018-10-30] MEDS: Pantoprazole 40 MG VIAL IVP SCH ×2 (08:11→20:47)
[2018-10-30] MEDS ORDERED: Magnesium Oxide 400 MG TAB PO SCH (10:15)
--- NOTE | 2018-10-30 10:37 | PDOC.GSPN ---
Surgery Progress Note: Subj - Subjective Narrative: Doing well on clears. Pain controlled. She denies nausea, no vomitting Surgery Progress Note: Obj - Vital signs Vital signs: Vital Signs - Most Recent Temp Pulse Resp BP Pulse Ox 98.0 F 94 18 135/83 91 L 10/30/18 07:42 10/30/18 08:10 10/30/18 07:42 10/30/18 08:10 10/30/18 08:10 - Physical Exam General: no distress Abdomen: soft, decreased bowel sounds, appropriately tender, distended Wound: healing well Surgery Progress Note: Results - Labs Result Diagrams: 10/30/18 05:48 10/30/18 05:48 Lab results: Laboratory Results - last 24 hr 10/30/18 10/30/18 10/30/18 04:49 05:48 05:48 WBC 6.1 RBC 3.88 L Hgb 11.7 L Hct 35.7 L MCV 92.1 MCH 30.1 MCHC 32.6 RDW 15.5 H Plt Count 282 MPV 7.7 Neutrophils % 54.6 Lymphocytes % 30.9 Monocytes % 10.3 H Eosinophils % 3.4 Basophils % 0.8 Neutrophils # 3.3 Lymphocytes # 1.9 Monocytes # 0.6 H Eosinophils # 0.2 Basophils # 0.1 Sodium 139 Potassium 3.6 Chloride 107 Carbon Dioxide 24 Anion Gap 12 BUN 12 Creatinine 1.50 H Estimated GFR (MDRD) 42 Glucose 110 POC Glucose 101 Calcium 8.8 Magnesium 1.8 Surgery Progress Note: A/P - Problem (1) Small bowel obstruction Current Visit: Yes Code(s): K56.609 - UNSP INTESTNL OBST, UNSP TO PARTIAL VERSUS COMPLETE OBST Status: Acute - Plan Plan: Doing well but not ready to advance yet. -cont to mobilize -suspect will be able to advance to fulls tomorrow
[2018-10-30] MEDS ORDERED: Acetaminophen 1,000 MG in Premix Bag 1 BAG IVPB PRN (13:35)
--- NOTE | 2018-10-30 13:41 | PDOC.HOSPP ---
- Subjective Encounter Date: 10/30/18 Encounter Time: 13:39 Subjective: 63 y/o female with crohns, prior SBO admitted with abdominal pain and found to have SBO. BP went up due to inability to continue oral antihypertensives and she was moved to ICU for Cardene infusion. Patient also developed some confusion. Intestinal obstruction has resolved and patient is back on diet. Tolerated liquid diet but developed abdominal pain with advancement to regular diet and later started vomiting. KUB was suggestive of intestinal obstruction and NG decompression was restarted. Subsequently was taken to OR for lap adhesiolysis on 10/26/2018. NG tube is off and patient is tolerating clear liquid but no BM or flatus. Now on TPN and glucerna clear. had abdominal pain last night and was given tramadol. - Objective Vital Signs & Weight: Vital Signs (12 hours) Temp Pulse Resp BP BP Pulse Ox 10/30/18 11:21 92 16 95 10/30/18 08:10 94 135/83 91 L 10/30/18 07:42 98.0 F 94 18 135/83 91 L Weight Admit Weight 198 lb 6.4 oz Weight 198 lb 6.4 oz Most Recent Monitor Data Heart Rate from ECG 90 NIBP 146/89 NIBP BP-Mean 108 Respiration from ECG 23 SpO2 100 I&O: 10/29/18 10/30/18 10/31/18 06:59 06:59 06:59 Intake Total 2255 2316 Output Total 800 200 Balance 1455 2116 Result Diagrams: 10/30/18 05:48 10/30/18 05:48 Additional Labs: Accuchecks 10/30/18 10/30/18 10/29/18 11:30 04:49 20:58 POC Glucose 130 H 101 130 H 10/29/18 16:52 POC Glucose 107 ROS - Medication Medications: Active Medications Generic Name Dose Route Start Last Admin Trade Name Freq PRN Reason Stop Dose Admin Acetaminophen 650 mg 10/23/18 12:00 10/27/18 09:00 Tylenol PO 650 mg Q6H PRN Administration Fever/Mild Pain Atorvastatin Calcium 40 mg 10/21/18 21:00 10/29/18 20:43 Lipitor PO 40 mg HS JOSSY Administration Calcitriol 0.5 mcg 10/21/18 09:00 10/30/18 08:09 Rocaltrol PO 0.5 mcg BID JOSSY Administration Carvedilol 25 mg 10/21/18 21:00 10/30/18 08:11 Coreg PO 25 mg BID JOSSY Administration Enoxaparin Sodium 40 mg 10/26/18 09:00 10/30/18 08:10 Lovenox SC 40 mg 0900 JOSSY Administration Fluoxetine HCl 60 mg 10/21/18 09:00 10/30/18 08:10 Prozac PO 60 mg DAILY JOSSY Administration Fluticasone Propionate 0 gm 10/30/18 09:00 10/30/18 08:10 Flonase Nasal [place] NASAL 1 spr DAILY JOSSY Administration Gabapentin 300 mg 10/21/18 09:00 10/30/18 08:09 Neurontin PO 300 mg BID JOSSY Administration Hydralazine HCl 10 mg 10/18/18 04:42 10/26/18 12:29 Apresoline SLOW IVP 10 mg Q4H PRN Administration SBP>160/100 Hydralazine HCl 25 mg 10/24/18 09:00 10/30/18 08:10 Apresoline PO 25 mg TID JOSSY Administration Fat Emulsion Intravenous 200 1,686.7021 mls @ 70.279 mls/hr 10/28/18 22:00 22:07 ml/ Sodium Acetate 40 meq/ IV 1,686.7021 mls Sodium Chloride 30 meq/ 2200 JOSSY Administration Potassium Chloride 20 meq/ Potassium Phosphate 30 mmol/ Calcium Gluconate 10 meq/ Magnesium Sulfate 10 meq/ Multivitamins 10 ml/ Chromium/ Copper/Manganese/Seleni/Zn 5 ml/ Dextrose/Water/ Sterile Water/ Amino Acids Insulin Human Lispro 0 units 10/18/18 09:44 10/20/18 18:43 Humalog SC 2 units .MILD SLIDING SCALE PRN Administration Mild Correctional Scale Labetalol HCl 20 mg 10/25/18 12:38 10/26/18 11:06 Normodyne SLOW IVP 4 ml Q4H PRN Administration SBP GREATER THAN 160 Levothyroxine Sodium 100 mcg 10/22/18 06:00 10/30/18 05:53 Synthroid PO 100 mcg 0600 JOSSY Administration Lidocaine 1 patch 10/19/18 21:00 10/29/18 20:44 Lidoderm 5% Patch TD 1 patch HS JOSSY Administration Miscellaneous Medication 1 each 10/20/18 09:00 10/30/18 08:11 Lidocaine Patch Removal TOP 1 each QAM JOSSY Administration Nicotine 14 mg 10/20/18 22:00 10/29/18 20:47 Nicoderm Patch TOP 14 mg Q24HR JOSSY Administration Nifedipine 120 mg 10/23/18 09:00 10/30/18 08:10 Procardia Xl PO 120 mg DAILY JOSSY Administration Ondansetron HCl 4 mg 10/18/18 13:47 10/25/18 09:52 Zofran IVP 4 mg Q6H PRN Administration Nausea/Vomiting Pantoprazole Sodium 40 mg 10/26/18 09:00 10/30/18 08:11 Protonix IVP 40 mg Q12HR JOSSY Administration Brexpiprazole [ 0 each 10/21/18 09:00 10/30/18 08:11 Rexulti] 2 Mg PO Not Given DAILY JOSSY Quetiapine Fumarate 200 mg 10/21/18 21:00 10/29/18 20:43 Seroquel PO 200 mg HS JOSSY Administration Sodium Chloride 10 ml 10/20/18 21:00 10/30/18 08:10 Flush - Normal Saline IVF 10 ml Q12HR JOSSY Administration Sodium Chloride 10 ml 10/20/18 10:07 10/29/18 20:53 Flush - Normal Saline IVF 10 ml PRN PRN Administration Saline Flush Zolpidem Tartrate 5 mg 10/20/18 21:42 10/23/18 01:42 Ambien PO 5 mg HS PRN Administration Insomnia - Exam awake alert General - other findings: obese Eye: anicteric sclera ENT: normocephalic atraumatic, no oropharyngeal lesions, moist mucosa Neck: supple, symmetric Heart: RRR Respiratory: no wheezes, no rales, no ronchi Respiratory - other findings: fair air entry bilaterally Gastrointestinal: soft, non-distended, normal bowel sounds, diminished bowl sounds Gastrointestinal - other findings: mild diffuse tenderness Extremities: no cyanosis Extremeties - other findings: mild to moderate bilateral leg edema Neurological: CN's grossly intact, no focal deficits Psychiatric: normal affect, A&O x 3 Hosp A/P (1) SBO (small bowel obstruction) Code(s): K56.69 - OTHER INTESTINAL OBSTRUCTION * DO NOT USE * Status: Acute (2) Accelerated hypertension Code(s): I10 - ESSENTIAL (PRIMARY) HYPERTENSION Status: Acute (3) MOOK (acute kidney injury) Code(s): N17.9 - ACUTE KIDNEY FAILURE, UNSPECIFIED Status: Acute (4) Crohns disease Code(s): K50.90 - CROHN'S DISEASE, UNSPECIFIED, WITHOUT COMPLICATIONS Status: Chronic Qualifiers: Gastrointestinal tract location: unspecified location Digestive disease complication type: unspecified complication Qualified Code(s): K50.919 - Crohn 's disease, unspecified, with unspecified complications (5) DM type 2 (diabetes mellitus, type 2) Status: Chronic Qualifiers: Diabetes mellitus fpc insulin use: with intermission coordinator use Diabetes mellitus complication status: with kidney complications Diabetes mellitus complication detail: with chronic kidney disease Chronic kidney disease stage : stage 3 (moderate) Qualified Code(s): E11.22 - Type 2 diabetes mellitus with diabetic chronic kidney disease; N18.3 - Chronic kidney disease, stage 3 ( moderate); 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 (6) Diastolic heart failure Code(s): I50.30 - UNSPECIFIED DIASTOLIC (CONGESTIVE) HEART FAILURE Status: Chronic Qualifiers: Heart failure chronicity: acute on chronic Qualified Code(s): I50.33 - Acute on chronic diastolic (congestive) heart failure (7) Acute encephalopathy Code(s): G93.40 - ENCEPHALOPATHY, UNSPECIFIED Status: Resolved (8) Hypernatremia Code(s): E87.0 - HYPEROSMOLALITY AND HYPERNATREMIA Status: Acute (9) Hypokalemia Code(s): E87.6 - HYPOKALEMIA Status: Resolved (10) Hypomagnesemia Code(s): E83.42 - HYPOMAGNESEMIA Status: Acute (11) Bilateral leg edema Code(s): R60.0 - LOCALIZED EDEMA Status: Acute (12) Fluid overload Code(s): E87.70 - FLUID OVERLOAD, UNSPECIFIED Status: Acute - Plan Lasix 40 mg 1v X 1 repleted serum potassium Diet as per Gen surgery. Analgesic as needed Continue oral antihypertensives
[2018-10-30] MEDS ORDERED: Furosemide 40 MG/4 ML VIAL SLOW IVP SCH (13:45)
[2018-10-30] MEDS: Atorvastatin Calcium 40 MG TAB PO SCH (20:42)
[2018-10-30] MEDS: Lidocaine 5% Patch TD SCH (20:46)
[2018-10-30] MEDS: Nicotine 14 MG PATCH TOP SCH (20:47)
[2018-10-30] MEDS: Zolpidem Tartrate 5 MG TAB PO PRN (20:59)
[2018-10-30] MEDS: Fat Emulsion 200 ML, Sodium Acetate 2 mEq/ml 40 MEQ, Sodium Chloride 30 MEQ, Potassium ... IV SCH (21:47)
[2018-10-31] MEDS: Levothyroxine Sodium 100 MCG TAB PO SCH (05:29)
[2018-10-31 06:29] LABS: Anion Gap 16 mmol/L (10-20); BUN (Urea Nitrogen) 14 mg/dL (9.8-20.1); Calc. Creatinine Clearance 50 mL/min (70-130); Calcium 9.5 mg/dL (7.8-10.44); Carbon Dioxide 22 mmol/L (23-31); Chloride 104 mmol/L (98-107); Estimated GFR-MDRD 39; Glucose 111 mg/dL (80-115); Potassium 4.1 mmol/L (3.5-5.1); Sodium 138 mmol/L (136-145)
[2018-10-31] MEDS: Magnesium Oxide 400 MG TAB PO SCH (09:24)
[2018-10-31] MEDS: Acetaminophen 325 MG TAB PO PRN ×2 (09:24→20:31)
[2018-10-31] MEDS: Pantoprazole 40 MG VIAL IVP SCH ×2 (09:24→20:26)
[2018-10-31] MEDS: Calcitriol 0.25 MCG CAP PO SCH ×2 (09:24→20:26)
[2018-10-31] MEDS: NIFEdipine XL 60 MG TAB PO SCH (09:24)
[2018-10-31] MEDS: Gabapentin 300 MG CAP PO SCH ×2 (09:24→20:26)
[2018-10-31] MEDS: FLUoxetine HCl 20 MG CAP PO SCH (09:24)
[2018-10-31] MEDS: Carvedilol 25 MG TAB PO SCH ×2 (09:25→20:26)
[2018-10-31] MEDS: Enoxaparin Sodium 40 MG/0.4 ML SYRINGE SC SCH (09:25)
[2018-10-31] MEDS: Lidocaine Patch Removal TOP SCH (09:25)
[2018-10-31] MEDS: hydrALAZINE 25 MG TAB PO SCH ×3 (09:25→20:27)
[2018-10-31] MEDS: Fluticasone Propionate Nasal Spray 16 gm Bottle NASAL SCH (09:25)
--- NOTE | 2018-10-31 13:35 | PRG ---
DATE OF SERVICE: 10/31/2018 SUBJECTIVE: Ms. Mosqueda feels better today. OBJECTIVE: VITAL SIGNS: She is afebrile. Vital signs are stable. ABDOMEN: Wound is healing well. There is no evidence of infection. She is less distended. She has active bowel sounds. ASSESSMENT: 1. Small bowel obstruction, status post lysis of adhesions. 2. Expected postoperative ileus, resolving. PLAN: Advance to full liquid diet. I suspect she will be ready to go home in the next day or two. Job ID: [id number]
--- NOTE | 2018-10-31 17:03 | PDOC.HOSPP ---
- Subjective Subjective: Seen and examined. Tolerating clear liquid diet, advanced to full liquid by surgery. Pain controlled on Tylenol. No BM, though no solid foods going in. No other acute complaints at this time. - Objective Vital Signs & Weight: Vital Signs (12 hours) Pulse BP Pulse Ox 10/31/18 15:59 93 156/96 H 10/31/18 09:25 93 156/96 H 10/31/18 09:24 93 156/96 H 10/31/18 08:00 97 Weight Admit Weight 198 lb 6.4 oz Weight 198 lb 6.4 oz Most Recent Monitor Data Heart Rate from ECG 90 NIBP 146/89 NIBP BP-Mean 108 Respiration from ECG 23 SpO2 100 I&O: 10/30/18 10/31/18 11/01/18 06:59 06:59 06:59 Intake Total 2316 2634 Output Total 200 3450 Balance 2116 816 Result Diagrams: 10/30/18 05:48 10/31/18 05:32 Additional Labs: Accuchecks 10/31/18 10/31/18 10/31/18 16:26 11:35 05:17 POC Glucose 156 H 130 H 114 H 10/30/18 20:20 POC Glucose 124 H ROS - Medication Medications: Active Medications Generic Name Dose Route Start Last Admin Trade Name Freq PRN Reason Stop Dose Admin Acetaminophen 650 mg 10/23/18 12:00 10/31/18 09:24 Tylenol PO 650 mg Q6H PRN Administration Fever/Mild Pain Atorvastatin Calcium 40 mg 10/21/18 21:00 10/30/18 20:42 Lipitor PO 40 mg HS JOSSY Administration Calcitriol 0.5 mcg 10/21/18 09:00 10/31/18 09:24 Rocaltrol PO 0.5 mcg BID JOSSY Administration Carvedilol 25 mg 10/21/18 21:00 10/31/18 09:25 Coreg PO 25 mg BID JOSSY Administration Enoxaparin Sodium 40 mg 10/26/18 09:00 10/31/18 09:25 Lovenox SC 40 mg 0900 JOSSY Administration Fluoxetine HCl 60 mg 10/21/18 09:00 10/31/18 09:24 Prozac PO 60 mg DAILY JOSSY Administration Fluticasone Propionate 0 gm 10/30/18 09:00 10/31/18 09:25 Flonase Nasal [place] NASAL 2 spr DAILY JOSSY Administration Gabapentin 300 mg 10/21/18 09:00 10/31/18 09:24 Neurontin PO 300 mg BID JOSSY Administration Hydralazine HCl 10 mg 10/18/18 04:42 10/26/18 12:29 Apresoline SLOW IVP 10 mg Q4H PRN Administration SBP>160/100 Hydralazine HCl 25 mg 10/24/18 09:00 10/31/18 15:59 Apresoline PO 25 mg TID JOSSY Administration Fat Emulsion Intravenous 200 1,686.7021 mls @ 70.279 mls/hr 10/28/18 22:00 21:47 ml/ Sodium Acetate 40 meq/ IV 1,686.7021 mls Sodium Chloride 30 meq/ 2200 JOSSY Administration Potassium Chloride 20 meq/ Potassium Phosphate 30 mmol/ Calcium Gluconate 10 meq/ Magnesium Sulfate 10 meq/ Multivitamins 10 ml/ Chromium/ Copper/Manganese/Seleni/Zn 5 ml/ Dextrose/Water/ Sterile Water/ Amino Acids Insulin Human Lispro 0 units 10/18/18 09:44 10/20/18 18:43 Humalog SC 2 units .MILD SLIDING SCALE PRN Administration Mild Correctional Scale Labetalol HCl 20 mg 10/25/18 12:38 10/26/18 11:06 Normodyne SLOW IVP 4 ml Q4H PRN Administration SBP GREATER THAN 160 Levothyroxine Sodium 100 mcg 10/22/18 06:00 10/31/18 05:29 Synthroid PO 100 mcg 0600 JOSSY Administration Lidocaine 1 patch 10/19/18 21:00 10/30/18 20:46 Lidoderm 5% Patch TD 1 patch HS JOSSY Administration Magnesium Oxide 400 mg 10/31/18 09:00 10/31/18 09:24 Magnesium Oxide PO 400 mg DAILY JOSSY Administration Miscellaneous Medication 1 each 10/20/18 09:00 10/31/18 09:25 Lidocaine Patch Removal TOP 1 each QAM JOSSY Administration Nicotine 14 mg 10/20/18 22:00 10/30/18 20:47 Nicoderm Patch TOP 14 mg Q24HR JOSSY Administration Nifedipine 120 mg 10/23/18 09:00 10/31/18 09:24 Procardia Xl PO 120 mg DAILY JOSSY Administration Ondansetron HCl 4 mg 10/18/18 13:47 10/25/18 09:52 Zofran IVP 4 mg Q6H PRN Administration Nausea/Vomiting Pantoprazole Sodium 40 mg 10/26/18 09:00 10/31/18 09:24 Protonix IVP 40 mg Q12HR JOSSY Administration Brexpiprazole [ 0 each 10/21/18 09:00 10/31/18 09:25 Rexulti] 2 Mg PO Not Given DAILY JOSSY Quetiapine Fumarate 200 mg 10/21/18 21:00 10/30/18 20:42 Seroquel PO 200 mg HS JOSSY Administration Sodium Chloride 10 ml 10/20/18 21:00 10/31/18 09:26 Flush - Normal Saline IVF 10 ml Q12HR JOSSY Administration Sodium Chloride 10 ml 10/20/18 10:07 10/30/18 20:47 Flush - Normal Saline IVF 10 ml PRN PRN Administration Saline Flush Zolpidem Tartrate 5 mg 10/20/18 21:42 10/30/18 20:59 Ambien PO 5 mg HS PRN Administration Insomnia - Exam NAD, awake alert Eye: PERRL, anicteric sclera ENT: moist mucosa Neck: no JVD, no lymphadenopathy Heart: RRR, no murmur, no gallops, no rubs Respiratory: CTAB, no wheezes, no rales, no ronchi, normal chest expansion Gastrointestinal: soft, non-distended, normal bowel sounds, no palpable masses, tender to palpation Extremities: no edema Neurological: CN's grossly intact, no weakness, no focal deficits Musculoskeletal: normal strength Psychiatric: normal affect, A&O x 3 Hosp A/P - Plan Plan: Surgery following, recommendations appreciated Tolerated clear liquid diet, advanced to full liquid diet Oral pain medications with Tylenol/ tramadol as needed Avoid opiates, will worsen obstruction No BM NG tube out Continue TPN S/p Ex lap with LAURA on 10/26 GI and DVT PPX
[2018-10-31] MEDS: Ondansetron PF 4 MG/2 ML Vial IVP PRN (17:49)
[2018-10-31] MEDS: Acetaminophen 500 MG TAB PO PRN (17:49)
[2018-10-31] MEDS: Atorvastatin Calcium 40 MG TAB PO SCH (20:26)
[2018-10-31] MEDS: Zolpidem Tartrate 5 MG TAB PO PRN (20:26)
[2018-10-31] MEDS: Nicotine 14 MG PATCH TOP SCH (20:31)
[2018-10-31] MEDS: Lidocaine 5% Patch TD SCH (20:31)
[2018-11-01] MEDS: Levothyroxine Sodium 100 MCG TAB PO SCH (05:30)
[2018-11-01] MEDS: Calcitriol 0.25 MCG CAP PO SCH ×2 (10:54→20:43)
[2018-11-01] MEDS: NIFEdipine XL 60 MG TAB PO SCH (10:54)
[2018-11-01] MEDS: FLUoxetine HCl 20 MG CAP PO SCH (10:54)
[2018-11-01] MEDS: Gabapentin 300 MG CAP PO SCH ×2 (10:55→20:44)
[2018-11-01] MEDS: Acetaminophen 500 MG TAB PO PRN (10:55)
[2018-11-01] MEDS: Magnesium Oxide 400 MG TAB PO SCH (10:55)
[2018-11-01] MEDS: hydrALAZINE 25 MG TAB PO SCH ×3 (10:55→20:44)
[2018-11-01] MEDS: Carvedilol 25 MG TAB PO SCH ×2 (10:55→20:44)
[2018-11-01] MEDS: Fluticasone Propionate Nasal Spray 16 gm Bottle NASAL SCH (10:55)
[2018-11-01] MEDS: Enoxaparin Sodium 40 MG/0.4 ML SYRINGE SC SCH (10:56)
[2018-11-01] MEDS: Lidocaine Patch Removal TOP SCH (10:56)
[2018-11-01] MEDS: Pantoprazole 40 MG VIAL IVP SCH ×2 (10:56→20:46)
--- NOTE | 2018-11-01 11:54 | PDOC.HOSPP ---
- Subjective Subjective: Seen and examined. Abdominal pain improving. No vomiting. Mild nausea. Passing flatus, no BM. otherwise feeling well. Patient does tell me she feels hungry. - Objective Vital Signs & Weight: Vital Signs (12 hours) Temp Pulse Resp BP Pulse Ox 11/01/18 10:55 91 11/01/18 10:54 91 11/01/18 08:32 98.2 F 91 20 144/91 H 92 L 11/01/18 08:00 92 L Weight Admit Weight 198 lb 6.4 oz Weight 198 lb 6.4 oz Most Recent Monitor Data Heart Rate from ECG 90 NIBP 146/89 NIBP BP-Mean 108 Respiration from ECG 23 SpO2 100 I&O: 10/31/18 11/01/18 11/02/18 06:59 06:59 06:59 Intake Total 2634 2597 Output Total 3450 1800 Balance -816 797 Result Diagrams: 10/30/18 05:48 10/31/18 05:32 Additional Labs: Accuchecks 11/01/18 11/01/18 10/31/18 11:26 04:16 20:43 POC Glucose 89 81 97 10/31/18 10/31/18 16:26 11:35 POC Glucose 156 H 130 H ROS - Medication Medications: Active Medications Generic Name Dose Route Start Last Admin Trade Name Freq PRN Reason Stop Dose Admin Acetaminophen 650 mg 10/23/18 12:00 10/31/18 20:31 Tylenol PO 650 mg Q6H PRN Administration Fever/Mild Pain Acetaminophen 1,000 mg 10/31/18 17:42 11/01/18 10:55 Tylenol PO 1,000 mg Q8H PRN Administration MODERATE PAIN (4-7) Atorvastatin Calcium 40 mg 10/21/18 21:00 10/31/18 20:26 Lipitor PO 40 mg HS JOSSY Administration Calcitriol 0.5 mcg 10/21/18 09:00 11/01/18 10:54 Rocaltrol PO 0.5 mcg BID JOSSY Administration Carvedilol 25 mg 10/21/18 21:00 11/01/18 10:55 Coreg PO 25 mg BID JOSSY Administration Enoxaparin Sodium 40 mg 10/26/18 09:00 11/01/18 10:56 Lovenox SC 40 mg 0900 JOSSY Administration Fluoxetine HCl 60 mg 10/21/18 09:00 11/01/18 10:54 Prozac PO 60 mg DAILY JOSSY Administration Fluticasone Propionate 0 gm 10/30/18 09:00 11/01/18 10:55 Flonase Nasal [place] NASAL 2 spr DAILY JOSSY Administration Gabapentin 300 mg 10/21/18 09:00 11/01/18 10:55 Neurontin PO 300 mg BID JOSSY Administration Hydralazine HCl 10 mg 10/18/18 04:42 10/26/18 12:29 Apresoline SLOW IVP 10 mg Q4H PRN Administration SBP>160/100 Hydralazine HCl 25 mg 10/24/18 09:00 11/01/18 10:55 Apresoline PO 25 mg TID JOSSY Administration Insulin Human Lispro 0 units 10/18/18 09:44 10/20/18 18:43 Humalog SC 2 units .MILD SLIDING SCALE PRN Administration Mild Correctional Scale Labetalol HCl 20 mg 10/25/18 12:38 10/26/18 11:06 Normodyne SLOW IVP 4 ml Q4H PRN Administration SBP GREATER THAN 160 Levothyroxine Sodium 100 mcg 10/22/18 06:00 11/01/18 05:30 Synthroid PO 100 mcg 0600 JOSSY Administration Lidocaine 1 patch 10/19/18 21:00 10/31/18 20:31 Lidoderm 5% Patch TD 1 patch HS JOSSY Administration Magnesium Oxide 400 mg 10/31/18 09:00 11/01/18 10:55 Magnesium Oxide PO 400 mg DAILY JOSSY Administration Miscellaneous Medication 1 each 10/20/18 09:00 11/01/18 10:56 Lidocaine Patch Removal TOP 1 each QAM JOSSY Administration Nicotine 14 mg 10/20/18 22:00 10/31/18 20:31 Nicoderm Patch TOP 14 mg Q24HR JOSSY Administration Nifedipine 120 mg 10/23/18 09:00 11/01/18 10:54 Procardia Xl PO 120 mg DAILY JOSSY Administration Ondansetron HCl 4 mg 10/18/18 13:47 10/31/18 17:49 Zofran IVP 4 mg Q6H PRN Administration Nausea/Vomiting Pantoprazole Sodium 40 mg 10/26/18 09:00 11/01/18 10:56 Protonix IVP 40 mg Q12HR JOSSY Administration Brexpiprazole [ 0 each 10/21/18 09:00 11/01/18 10:56 Rexulti] 2 Mg PO Not Given DAILY JOSSY Quetiapine Fumarate 200 mg 10/21/18 21:00 10/31/18 20:26 Seroquel PO 200 mg HS JOSSY Administration Sodium Chloride 10 ml 10/20/18 21:00 11/01/18 10:57 Flush - Normal Saline IVF 10 ml Q12HR JOSSY Administration Sodium Chloride 10 ml 10/20/18 10:07 10/31/18 20:32 Flush - Normal Saline IVF 10 ml PRN PRN Administration Saline Flush Zolpidem Tartrate 5 mg 10/20/18 21:42 10/31/18 20:26 Ambien PO 5 mg HS PRN Administration Insomnia - Exam NAD Eye: PERRL, anicteric sclera Eye - other findings: EOMI ENT: normocephalic atraumatic Neck: supple, symmetric Heart: RRR, no murmur, no gallops Respiratory: CTAB, no wheezes, no rales, no ronchi, normal chest expansion Gastrointestinal: soft, non-distended, normal bowel sounds, no palpable masses, no hepatomegaly, tender to palpation Extremities: no edema Skin: normal turgor Neurological: CN's grossly intact, no weakness, no focal deficits Musculoskeletal: normal tone, normal strength Psychiatric: normal affect, A&O x 3 Hosp A/P - Plan Plan: Surgery following, recommendations appreciated Tolerated full liquid diet, with nausea today will defer to Surgery when to advance Oral pain medications with Tylenol/ tramadol as needed Avoid opiates, will worsen obstruction No BM, passing flatus NG tube out Continue TPN, until adequate oral intake S/p Ex lap with LAURA on 10/26 GI and DVT PPX
[2018-11-01] MEDS ORDERED: Bisacodyl 10 MG SUPP PR PRN (15:56)
--- NOTE | 2018-11-01 15:59 | PDOC.GSPN ---
Surgery Progress Note: Subj - Subjective Narrative: Patient feels good. She is a little sore at her incisions but is not having much in the way of pain. She is passing gas and is not nauseated but has not yet had a bowel movement. She does have severe baseline constipation and only has a bowel movement about once a week. Her abdomen is soft and nondistended with minimal genoveva-incisional tenderness. Bowel tones are present. Assessment/plan: Doing well overall status post lysis of adhesions but still awaiting a bowel movements. The patient does have severe constipation at baseline and her colon had a fair amount of gas and stool on it on her last KUB. I'm ordering stool softeners and laxatives. I don't think there is any evidence for persistent bowel obstruction, and we are more likely just dealing with her chronic constipation at this point. If she gets nauseated or has worsening abdominal pain with these medications, I will obtain more imaging. Surgery Progress Note: Obj - Vital signs Vital signs: Vital Signs - Most Recent Temp Pulse Resp BP Pulse Ox 98.2 F 91 20 144/91 H 92 L 11/01/18 08:32 11/01/18 15:44 11/01/18 08:32 11/01/18 08:32 11/01/18 08:32 Surgery Progress Note: Results - Labs Result Diagrams: 10/30/18 05:48 10/31/18 05:32 Lab results: Laboratory Results - last 24 hr 11/01/18 11/01/18 04:16 11:26 POC Glucose 81 89
[2018-11-01] MEDS: Docusate 100 MG CAP PO SCH (20:44)
[2018-11-01] MEDS: Atorvastatin Calcium 40 MG TAB PO SCH (20:44)
[2018-11-01] MEDS: Zolpidem Tartrate 5 MG TAB PO PRN (20:45)
[2018-11-01] MEDS: Lidocaine 5% Patch TD SCH (20:46)
[2018-11-01] MEDS: Nicotine 14 MG PATCH TOP SCH (22:00)
[2018-11-02] MEDS: Levothyroxine Sodium 100 MCG TAB PO SCH (06:13)
[2018-11-02] MEDS: FLUoxetine HCl 20 MG CAP PO SCH (09:39)
[2018-11-02] MEDS: Magnesium Oxide 400 MG TAB PO SCH (09:39)
[2018-11-02] MEDS: Calcitriol 0.25 MCG CAP PO SCH ×2 (09:39→20:41)
[2018-11-02] MEDS: hydrALAZINE 25 MG TAB PO SCH ×3 (09:39→20:41)
[2018-11-02] MEDS: Gabapentin 300 MG CAP PO SCH ×2 (09:39→20:41)
[2018-11-02] MEDS: Fluticasone Propionate Nasal Spray 16 gm Bottle NASAL SCH (09:40)
[2018-11-02] MEDS: Carvedilol 25 MG TAB PO SCH ×2 (09:40→20:41)
[2018-11-02] MEDS: Lidocaine Patch Removal TOP SCH (09:40)
[2018-11-02] MEDS: Docusate 100 MG CAP PO SCH ×2 (09:40→20:41)
[2018-11-02] MEDS: Enoxaparin Sodium 40 MG/0.4 ML SYRINGE SC SCH (09:40)
[2018-11-02] MEDS: NIFEdipine XL 60 MG TAB PO SCH (09:40)
[2018-11-02] MEDS: Pantoprazole 40 MG VIAL IVP SCH ×2 (09:40→20:40)
[2018-11-02] MEDS: Polyethylene Glycol 3350 17 GM Packet PO SCH (09:41)
--- NOTE | 2018-11-02 13:09 | PDOC.HOSPP ---
- Subjective Subjective: Seen and examined. Clinically unchanged. No BM. Still with flatus. Tolerating liquids. Patient tells me she is hungry. No nausea. Feels like she has not slept. - Objective Vital Signs & Weight: Vital Signs (12 hours) Temp Pulse Resp BP Pulse Ox 11/02/18 09:40 91 98 11/02/18 09:39 91 11/02/18 08:05 98.3 F 91 18 143/97 H 98 Weight Admit Weight 198 lb 6.4 oz Weight 198 lb 6.4 oz Most Recent Monitor Data Heart Rate from ECG 90 NIBP 146/89 NIBP BP-Mean 108 Respiration from ECG 23 SpO2 100 I&O: 11/01/18 11/02/18 11/03/18 06:59 06:59 06:59 Intake Total 2597 2300 Output Total 1800 1600 Balance 797 700 Result Diagrams: 10/30/18 05:48 10/31/18 05:32 Additional Labs: Accuchecks 11/02/18 11/02/18 11/01/18 12:38 04:49 19:36 POC Glucose 122 H 95 122 H 11/01/18 16:58 POC Glucose 110 ROS - Medication Medications: Active Medications Generic Name Dose Route Start Last Admin Trade Name Freq PRN Reason Stop Dose Admin Acetaminophen 650 mg 10/23/18 12:00 10/31/18 20:31 Tylenol PO 650 mg Q6H PRN Administration Fever/Mild Pain Acetaminophen 1,000 mg 10/31/18 17:42 11/01/18 10:55 Tylenol PO 1,000 mg Q8H PRN Administration MODERATE PAIN (4-7) Atorvastatin Calcium 40 mg 10/21/18 21:00 11/01/18 20:44 Lipitor PO 40 mg HS JOSSY Administration Calcitriol 0.5 mcg 10/21/18 09:00 11/02/18 09:39 Rocaltrol PO 0.5 mcg BID JOSSY Administration Carvedilol 25 mg 10/21/18 21:00 11/02/18 09:40 Coreg PO 25 mg BID JOSSY Administration Docusate Sodium 100 mg 11/01/18 21:00 11/02/18 09:40 Colace PO 100 mg BID JOSSY Administration Enoxaparin Sodium 40 mg 10/26/18 09:00 11/02/18 09:40 Lovenox SC 40 mg 0900 JOSSY Administration Fluoxetine HCl 60 mg 10/21/18 09:00 11/02/18 09:39 Prozac PO 60 mg DAILY JOSSY Administration Fluticasone Propionate 0 gm 10/30/18 09:00 11/02/18 09:40 Flonase Nasal [place] NASAL 1 spr DAILY JOSSY Administration Gabapentin 300 mg 10/21/18 09:00 11/02/18 09:39 Neurontin PO 300 mg BID JOSSY Administration Hydralazine HCl 10 mg 10/18/18 04:42 10/26/18 12:29 Apresoline SLOW IVP 10 mg Q4H PRN Administration SBP>160/100 Hydralazine HCl 25 mg 10/24/18 09:00 11/02/18 09:39 Apresoline PO 25 mg TID JOSSY Administration Insulin Human Lispro 0 units 10/18/18 09:44 10/20/18 18:43 Humalog SC 2 units .MILD SLIDING SCALE PRN Administration Mild Correctional Scale Labetalol HCl 20 mg 10/25/18 12:38 10/26/18 11:06 Normodyne SLOW IVP 4 ml Q4H PRN Administration SBP GREATER THAN 160 Levothyroxine Sodium 100 mcg 10/22/18 06:00 11/02/18 06:13 Synthroid PO 100 mcg 0600 JOSSY Administration Lidocaine 1 patch 10/19/18 21:00 11/01/18 20:46 Lidoderm 5% Patch TD 1 patch HS JOSSY Administration Magnesium Oxide 400 mg 10/31/18 09:00 11/02/18 09:39 Magnesium Oxide PO 400 mg DAILY JOSSY Administration Miscellaneous Medication 1 each 10/20/18 09:00 11/02/18 09:40 Lidocaine Patch Removal TOP 1 each QAM JOSSY Administration Nicotine 14 mg 10/20/18 22:00 11/01/18 22:00 Nicoderm Patch TOP 14 mg Q24HR JOSSY Administration Nifedipine 120 mg 10/23/18 09:00 11/02/18 09:40 Procardia Xl PO 120 mg DAILY JOSSY Administration Ondansetron HCl 4 mg 10/18/18 13:47 10/31/18 17:49 Zofran IVP 4 mg Q6H PRN Administration Nausea/Vomiting Pantoprazole Sodium 40 mg 10/26/18 09:00 11/02/18 09:40 Protonix IVP 40 mg Q12HR JOSSY Administration Brexpiprazole [ 0 each 10/21/18 09:00 11/02/18 09:40 Rexulti] 2 Mg PO Not Given DAILY JOSSY Polyethylene Glycol 17 gm 11/02/18 09:00 11/02/18 09:41 Miralax PO 17 gm DAILY JOSSY Administration Quetiapine Fumarate 200 mg 10/21/18 21:00 11/01/18 20:43 Seroquel PO 200 mg HS JOSSY Administration Sodium Chloride 10 ml 10/20/18 21:00 11/02/18 09:40 Flush - Normal Saline IVF 10 ml Q12HR JOSSY Administration Sodium Chloride 10 ml 10/20/18 10:07 10/31/18 20:32 Flush - Normal Saline IVF 10 ml PRN PRN Administration Saline Flush Zolpidem Tartrate 5 mg 10/20/18 21:42 11/01/18 20:45 Ambien PO 5 mg HS PRN Administration Insomnia - Exam NAD, awake alert Eye: PERRL, anicteric sclera ENT: moist mucosa Neck: supple, symmetric Heart: RRR, no murmur, no gallops, no rubs Respiratory: CTAB, no wheezes, no rales, no ronchi Gastrointestinal: soft, non-tender, non-distended, normal bowel sounds, no guarding, no rigidity Extremities: no edema Neurological: CN's grossly intact, no weakness, no focal deficits, no new deficit Musculoskeletal: normal strength Psychiatric: normal affect, A&O x 3 Hosp A/P (1) Bilateral leg edema Code(s): R60.0 - LOCALIZED EDEMA Status: Resolved (2) Small bowel obstruction Code(s): K56.609 - UNSP INTESTNL OBST, UNSP TO PARTIAL VERSUS COMPLETE OBST Status: Acute (3) MOOK (acute kidney injury) Code(s): N17.9 - ACUTE KIDNEY FAILURE, UNSPECIFIED Status: Resolved (4) Constipation Code(s): K59.00 - CONSTIPATION, UNSPECIFIED Status: Chronic Qualifiers: Constipation type: unspecified constipation type Qualified Code(s): K59.00 - Constipation, unspecified (5) SBO (small bowel obstruction) Code(s): K56.69 - OTHER INTESTINAL OBSTRUCTION * DO NOT USE * Status: Acute (6) CAD (coronary artery disease) Code(s): I25.10 - ATHSCL HEART DISEASE OF [place] CORONARY ARTERY W/O ANG PCTRS Status: Chronic Qualifiers: Coronary Disease-Associated Artery/Lesion type: [place] artery [place] vs. transplanted heart: [place] heart Associated angina: without angina Qualified Code(s): I25.10 - Atherosclerotic heart disease of [place] coronary artery without angina pectoris (7) DM type 2 (diabetes mellitus, type 2) Status: Chronic Qualifiers: Diabetes mellitus [place] insulin use: with group home use Diabetes mellitus complication status: with kidney complications Diabetes mellitus complication detail: with chronic kidney disease Chronic kidney disease stage : stage 3 (moderate) Qualified Code(s): E11.22 - Type 2 diabetes mellitus with diabetic chronic kidney disease; N18.3 - Chronic kidney disease, stage 3 ( moderate); Z79.4 - [facility] (current) use of insulin (8) Hypertension Code(s): I10 - ESSENTIAL (PRIMARY) HYPERTENSION Status: Chronic Qualifiers: Hypertension type: essential hypertension Qualified Code(s): I10 - Essential (primary) hypertension - Plan Plan: Surgery following, recommendations appreciated Tolerated full liquid diet, no nausea today, will defer to Surgery when to advance Oral pain medications with Tylenol/ tramadol as needed Avoid opiates, will worsen obstruction No BM, passing flatus NG tube out Seroquel at night controlling mood and helps with sleep S/p Ex lap with LAURA on 10/26 GI and DVT PPX
[2018-11-02] MEDS ORDERED: Fleet Enema 133 ML BOT PR SCH (14:00)
[2018-11-02] MEDS: Ondansetron PF 4 MG/2 ML Vial IVP PRN (15:53)
--- NOTE | 2018-11-02 16:20 | PDOC.GSPN ---
Surgery Progress Note: Subj - Subjective Narrative: Patient feels good. She denies any nausea or abdominal pain. She is walking the halls. She is passing gas but hasn't yet had a bowel movement despite MiraLAX and docusate. She is hungry and wants to eat some solid food. I'm going to advance her diet to GI soft, and order an enema. She has severe underlying constipation and I think this is the issue at this point. Surgery Progress Note: Obj - Vital signs Vital signs: Vital Signs - Most Recent Temp Pulse Resp BP Pulse Ox 98.5 F 84 16 121/83 96 11/02/18 13:21 11/02/18 15:52 11/02/18 15:52 11/02/18 15:52 11/02/18 15:52 Surgery Progress Note: Results - Labs Result Diagrams: 10/30/18 05:48 10/31/18 05:32 Lab results: Laboratory Results - last 24 hr 11/02/18 11/02/18 04:49 12:38 POC Glucose 95 122 H
[2018-11-02] MEDS: Lidocaine 5% Patch TD SCH (20:39)
[2018-11-02] MEDS: Nicotine 14 MG PATCH TOP SCH (20:39)
[2018-11-02] MEDS: Atorvastatin Calcium 40 MG TAB PO SCH (20:41)
[2018-11-02] MEDS: Zolpidem Tartrate 5 MG TAB PO PRN (20:43)
[2018-11-03] MEDS: Levothyroxine Sodium 100 MCG TAB PO SCH (05:45)
[2018-11-03] MEDS: Docusate 100 MG CAP PO SCH ×2 (08:18→20:54)
[2018-11-03] MEDS: Enoxaparin Sodium 40 MG/0.4 ML SYRINGE SC SCH (08:18)
[2018-11-03] MEDS: Polyethylene Glycol 3350 17 GM Packet PO SCH (08:18)
[2018-11-03] MEDS: NIFEdipine XL 60 MG TAB PO SCH (08:19)
[2018-11-03] MEDS: FLUoxetine HCl 20 MG CAP PO SCH (08:19)
[2018-11-03] MEDS: Pantoprazole 40 MG VIAL IVP SCH ×2 (08:19→20:54)
[2018-11-03] MEDS: Lidocaine Patch Removal TOP SCH (08:20)
[2018-11-03] MEDS: Magnesium Oxide 400 MG TAB PO SCH (08:20)
[2018-11-03] MEDS: Carvedilol 25 MG TAB PO SCH ×2 (08:20→20:54)
[2018-11-03] MEDS: Calcitriol 0.25 MCG CAP PO SCH ×2 (08:20→20:54)
[2018-11-03] MEDS: Gabapentin 300 MG CAP PO SCH ×2 (08:20→20:54)
[2018-11-03] MEDS: hydrALAZINE 25 MG TAB PO SCH ×3 (08:20→20:54)
--- NOTE | 2018-11-03 08:45 | RAD ---
Exam: 1 view abdomen COMPARISON: 10/28/2018 HISTORY: Lysis of adhesions. Small bowel obstruction FINDINGS: Portable supine abdomen radiograph demonstrates a nonspecific bowel gas pattern. There are surgical clips in the right upper quadrant and right lower quadrant. No suspicious densities. No pneumoperitoneum on this supine projection IMPRESSION: Nonspecific bowel gas pattern.
--- NOTE | 2018-11-03 09:39 | PDOC.GSPN ---
Surgery Progress Note: Subj - Subjective Narrative: Still no bowel movement. KUB shows a lot of stool in the right colon but no dilated small bowel loops. She is not nauseated or having any pain and she is passing plenty of gas. I'm going to order some mag citrate for her. Surgery Progress Note: Obj - Vital signs Vital signs: Vital Signs - Most Recent Temp Pulse Resp BP Pulse Ox 98.3 F 87 20 160/97 H 94 L 11/03/18 08:00 11/03/18 08:20 11/03/18 08:00 11/03/18 08:00 11/03/18 08:00 Surgery Progress Note: Results - Labs Result Diagrams: 10/30/18 05:48 10/31/18 05:32 Lab results: Laboratory Results - last 24 hr 11/03/18 05:08 POC Glucose 86
[2018-11-03] MEDS ORDERED: Magnesium Citrate 300 ML BOT PO SCH (09:45)
[2018-11-03] MEDS: Fluticasone Propionate Nasal Spray 16 gm Bottle NASAL SCH (11:13)
--- NOTE | 2018-11-03 13:16 | PDOC.HOSPP ---
- Subjective Subjective: Seen and examined. Patient in good spirits. Tolerating GI soft diet without nausea or vomiting. KUB noted, no dilated loops of bowel. Unfortunately no bowel function yet. Still passing gas. - Objective Vital Signs & Weight: Vital Signs (12 hours) Temp Pulse Resp BP Pulse Ox 11/03/18 08:20 87 11/03/18 08:19 87 11/03/18 08:00 98.3 F 87 20 160/97 H 90 L Weight Admit Weight 198 lb 6.4 oz Weight 198 lb 6.4 oz Most Recent Monitor Data Heart Rate from ECG 90 NIBP 146/89 NIBP BP-Mean 108 Respiration from ECG 23 SpO2 100 I&O: 11/02/18 11/03/18 11/04/18 06:59 06:59 06:59 Intake Total 2300 840 240 Output Total 1600 1200 Balance 700 -360 240 Result Diagrams: 10/30/18 05:48 10/31/18 05:32 Additional Labs: Accuchecks 11/03/18 11/03/18 11/02/18 12:02 05:08 20:19 POC Glucose 124 H 86 119 H 11/02/18 17:26 POC Glucose 158 H Radiology Reviewed by me: Yes (KUB ) ROS - Medication Medications: Active Medications Generic Name Dose Route Start Last Admin Trade Name Freq PRN Reason Stop Dose Admin Acetaminophen 1,000 mg 10/31/18 17:42 11/01/18 10:55 Tylenol PO 1,000 mg Q8H PRN Administration MODERATE PAIN (4-7) Atorvastatin Calcium 40 mg 10/21/18 21:00 11/02/18 20:41 Lipitor PO 40 mg HS JOSSY Administration Calcitriol 0.5 mcg 10/21/18 09:00 11/03/18 08:20 Rocaltrol PO 0.5 mcg BID JOSSY Administration Carvedilol 25 mg 10/21/18 21:00 11/03/18 08:20 Coreg PO 25 mg BID JOSSY Administration Docusate Sodium 100 mg 11/01/18 21:00 11/03/18 08:18 Colace PO 100 mg BID JOSSY Administration Enoxaparin Sodium 40 mg 10/26/18 09:00 11/03/18 08:18 Lovenox SC 40 mg 0900 JOSSY Administration Fluoxetine HCl 60 mg 10/21/18 09:00 11/03/18 08:19 Prozac PO 60 mg DAILY JOSSY Administration Fluticasone Propionate 0 gm 10/30/18 09:00 11/03/18 11:13 Flonase Nasal [place] NASAL 1 spr DAILY JOSSY Administration Gabapentin 300 mg 10/21/18 09:00 11/03/18 08:20 Neurontin PO 300 mg BID JOSSY Administration Hydralazine HCl 10 mg 10/18/18 04:42 10/26/18 12:29 Apresoline SLOW IVP 10 mg Q4H PRN Administration SBP>160/100 Hydralazine HCl 25 mg 10/24/18 09:00 11/03/18 08:20 Apresoline PO 25 mg TID JOSSY Administration Insulin Human Lispro 0 units 10/18/18 09:44 10/20/18 18:43 Humalog SC 2 units .MILD SLIDING SCALE PRN Administration Mild Correctional Scale Labetalol HCl 20 mg 10/25/18 12:38 10/26/18 11:06 Normodyne SLOW IVP 4 ml Q4H PRN Administration SBP GREATER THAN 160 Levothyroxine Sodium 100 mcg 10/22/18 06:00 11/03/18 05:45 Synthroid PO 100 mcg 0600 JOSSY Administration Lidocaine 1 patch 10/19/18 21:00 11/02/18 20:39 Lidoderm 5% Patch TD 1 patch HS JOSSY Administration Magnesium Citrate 300 ml 11/03/18 09:45 11/03/18 11:11 Citrate Of Magnesia 300 Ml Bot PO 11/03/18 16:00 300 ml NOW JOSSY Administration Magnesium Oxide 400 mg 10/31/18 09:00 11/03/18 08:20 Magnesium Oxide PO 400 mg DAILY JOSSY Administration Miscellaneous Medication 1 each 10/20/18 09:00 11/03/18 08:20 Lidocaine Patch Removal TOP 1 each QAM JOSSY Administration Nicotine 14 mg 10/20/18 22:00 11/02/18 20:39 Nicoderm Patch TOP 14 mg Q24HR JOSSY Administration Nifedipine 120 mg 10/23/18 09:00 11/03/18 08:19 Procardia Xl PO 120 mg DAILY JOSSY Administration Ondansetron HCl 4 mg 10/18/18 13:47 11/02/18 15:53 Zofran IVP 4 mg Q6H PRN Administration Nausea/Vomiting Pantoprazole Sodium 40 mg 10/26/18 09:00 11/03/18 08:19 Protonix IVP 40 mg Q12HR JOSSY Administration Brexpiprazole [ 0 each 10/21/18 09:00 11/03/18 08:27 Rexulti] 2 Mg PO 2 each DAILY JOSSY Administration Polyethylene Glycol 17 gm 11/02/18 09:00 11/03/18 08:18 Miralax PO 17 gm DAILY JOSSY Administration Quetiapine Fumarate 200 mg 10/21/18 21:00 11/02/18 20:41 Seroquel PO 200 mg HS JOSSY Administration Sodium Chloride 10 ml 10/20/18 21:00 11/03/18 08:27 Flush - Normal Saline IVF 10 ml Q12HR JOSSY Administration Sodium Chloride 10 ml 10/20/18 10:07 10/31/18 20:32 Flush - Normal Saline IVF 10 ml PRN PRN Administration Saline Flush Zolpidem Tartrate 5 mg 10/20/18 21:42 11/02/18 20:43 Ambien PO 5 mg HS PRN Administration Insomnia - Exam NAD, awake alert Eye: anicteric sclera Eye - other findings: EOMI ENT: moist mucosa Neck: supple, symmetric Heart: RRR, no murmur, no rubs, normal peripheral pulses Respiratory: CTAB, no wheezes, no rales, no ronchi, normal chest expansion Gastrointestinal: soft, non-tender, normal bowel sounds, no guarding, no rigidity Gastrointestinal - other findings: slightly distended Extremities: no edema Skin: normal turgor, no rashes Neurological: no weakness, no focal deficits Musculoskeletal: normal strength Psychiatric: normal affect, A&O x 3 Hosp A/P (1) Bilateral leg edema Code(s): R60.0 - LOCALIZED EDEMA Status: Resolved (2) Small bowel obstruction Code(s): K56.609 - UNSP INTESTNL OBST, UNSP TO PARTIAL VERSUS COMPLETE OBST Status: Acute (3) MOOK (acute kidney injury) Code(s): N17.9 - ACUTE KIDNEY FAILURE, UNSPECIFIED Status: Resolved (4) Constipation Code(s): K59.00 - CONSTIPATION, UNSPECIFIED Status: Chronic Qualifiers: Constipation type: unspecified constipation type Qualified Code(s): K59.00 - Constipation, unspecified (5) SBO (small bowel obstruction) Code(s): K56.69 - OTHER INTESTINAL OBSTRUCTION * DO NOT USE * Status: Acute (6) CAD (coronary artery disease) Code(s): I25.10 - ATHSCL HEART DISEASE OF [place] CORONARY ARTERY W/O ANG PCTRS Status: Chronic Qualifiers: Coronary Disease-Associated Artery/Lesion type: [place] artery [place] vs. transplanted heart: [place] heart Associated angina: without angina Qualified Code(s): I25.10 - Atherosclerotic heart disease of [place] coronary artery without angina pectoris (7) DM type 2 (diabetes mellitus, type 2) Status: Chronic Qualifiers: Diabetes mellitus [facility] insulin use: with [facility] use Diabetes mellitus complication status: with kidney complications Diabetes mellitus complication detail: with chronic kidney disease Chronic kidney disease stage : stage 3 (moderate) Qualified Code(s): E11.22 - Type 2 diabetes mellitus with diabetic chronic kidney disease; N18.3 - Chronic kidney disease, stage 3 ( moderate); Z79.4 - [facility] (current) use of insulin (8) Hypertension Code(s): I10 - ESSENTIAL (PRIMARY) HYPERTENSION Status: Chronic Qualifiers: Hypertension type: essential hypertension Qualified Code(s): I10 - Essential (primary) hypertension - Plan Plan: Surgery following, recommendations appreciated Tolerated GI soft diet, no nausea today, doing well Awaiting on bowel function to resume, severe constipation at baseline passing flatus NG tube out KUB neg for dilated loops of bowel Oral pain medications with Tylenol/ tramadol as needed Avoid opiates, will worsen obstruction Seroquel at night controlling mood and helps with sleep S/p Ex lap with LAURA on 10/26 GI and DVT PPX
[2018-11-03] MEDS: Ondansetron PF 4 MG/2 ML Vial IVP PRN ×2 (13:49→20:59)
[2018-11-03 14:05] VITALS: BMI 33.8
[2018-11-03] MEDS: Lidocaine 5% Patch TD SCH (20:49)
[2018-11-03] MEDS: Nicotine 14 MG PATCH TOP SCH (20:50)
[2018-11-03] MEDS: Zolpidem Tartrate 5 MG TAB PO PRN (20:53)
[2018-11-03] MEDS: Acetaminophen 500 MG TAB PO PRN (20:54)
[2018-11-03] MEDS: Atorvastatin Calcium 40 MG TAB PO SCH (20:54)
[2018-11-04] MEDS: Ondansetron PF 4 MG/2 ML Vial IVP PRN (03:48)
[2018-11-04] MEDS: Levothyroxine Sodium 100 MCG TAB PO SCH (05:12)
[2018-11-04] MEDS: NIFEdipine XL 60 MG TAB PO SCH (08:12)
[2018-11-04] MEDS: Calcitriol 0.25 MCG CAP PO SCH (08:12)
[2018-11-04] MEDS: Enoxaparin Sodium 40 MG/0.4 ML SYRINGE SC SCH (08:12)
[2018-11-04] MEDS: Polyethylene Glycol 3350 17 GM Packet PO SCH (08:12)
[2018-11-04] MEDS: Gabapentin 300 MG CAP PO SCH (08:13)
[2018-11-04] MEDS: Magnesium Oxide 400 MG TAB PO SCH (08:13)
[2018-11-04] MEDS: Fluticasone Propionate Nasal Spray 16 gm Bottle NASAL SCH (08:13)
[2018-11-04] MEDS: hydrALAZINE 25 MG TAB PO SCH (08:13)
[2018-11-04] MEDS: FLUoxetine HCl 20 MG CAP PO SCH (08:13)
[2018-11-04] MEDS: Pantoprazole 40 MG VIAL IVP SCH (08:14)
[2018-11-04] MEDS: Docusate 100 MG CAP PO SCH (08:15)
[2018-11-04] MEDS: Carvedilol 25 MG TAB PO SCH (08:15)
[2018-11-04] MEDS: Acetaminophen 500 MG TAB PO PRN (08:17)
[2018-11-04 08:31] VITALS: BP 163/94; TEMP 98
[2018-11-04 10:01] LABS: #Eosinphils 0.2 thou/uL (0.0-0.7); #Lymphocytes 1.4 thou/uL (1.20-3.40); #Monocytes 0.5 thou/uL (0.11-0.59); #Neutrophils 2.4 thou/uL (1.40-6.50); %Basophils 0.6 % (0.0-1.0); %Eosinophils 3.8 % (0.0-10.0); %Lymphocytes 31.5 % (21.0-51.0); %Monocytes 10.9 % (0.0-10.0); %Neutrophils 53.3 % (42.0-75.0); Hemoglobin 12.8 g/dL (12.0-16.0); Mean Corpuscular Hemoglobin 30.9 pg (27.0-31.0); Mean Corpuscular Volume 93.5 fL (78.0-98.0); Mean Platelet Volume 7.7 fL (7.4-10.4); Platelet Count 354 thou/uL (130-400); RBC Distribution Width 14.9 % (11.5-14.5); Red Blood Cell (RBC) Count 4.14 mill/uL (4.20-5.40); White Blood Cell (WBC) Count 4.5 thou/uL (4.8-10.8)
[2018-11-04 10:22] LABS: Anion Gap 13 mmol/L (10-20); BUN (Urea Nitrogen) 17 mg/dL (9.8-20.1); Calc. Creatinine Clearance 36 mL/min (70-130); Calcium 9.7 mg/dL (7.8-10.44); Carbon Dioxide 26 mmol/L (23-31); Chloride 105 mmol/L (98-107); Estimated GFR-MDRD 29; Glucose 140 mg/dL (80-115); Potassium 4.3 mmol/L (3.5-5.1); Sodium 140 mmol/L (136-145)
[2018-11-04] MEDS: Lidocaine Patch Removal TOP SCH (10:30)
--- NOTE | 2018-11-04 21:51 | DIS ---
DATE OF ADMISSION: 10/17/2018 DATE OF DISCHARGE: 11/04/2018 FINAL DIAGNOSES: 1. Small-bowel obstruction, status post adhesiolysis. 2. Accelerated hypertension. 3. Acute kidney injury, resolved. 4. Crohn disease, chronic. 5. Diabetes mellitus, type 2. 6. Diastolic heart failure, chronic, stable. 7. Acute encephalopathy, resolved. 8. Hypernatremia, resolved. 9. Hypokalemia, resolved. 10. Hypomagnesemia, resolved. 11. Bilateral leg edema, resolved. 12. Fluid overload, resolved. CONSULTANTS: 1. Dr. Mora, General Surgery. 2. Dr. Medardo Mansfield, Gastrointestinal Service. 3. Dr. Andrade, Pulmonary/Critical Care. 4. Dr. Bandar De Jesus, Pulmonary Service. HOSPITAL COURSE: The patient is a 63-year-old female, who was admitted to the hospital with complaints of abdominal pain. Apparently, she had nausea but denied vomiting. She has chronic constipation. She denied any fever or shortness of breath. In the emergency room, her CAT scan showed abdominal and pelvis evaluation without contrast showed small bowel obstruction and the patient was admitted for further evaluation. NG tube was placed and at the time of emergency room evaluation, her white count was 7.5, hemoglobin 14.7, MCV 92, platelet count 272. Sodium 142, potassium 3.8, chloride 106, CO2 of 26, BUN 22, creatinine 1.68. Lipase was 13. Urine did not show any problems. CT scan of the abdomen and pelvis as mentioned above showed mid small bowel obstruction. The patient got admitted to the hospital with IV fluids and IV PPI. She was started on metoprolol every 6 hours to prevent rebound tachycardia since she was not giving her regular home medications, because she was n.p.o. general Surgery was consulted and patient was seen by Dr. Mora. The patient was followed closely for possible complete obstruction, but she developed some altered mental status and the blood pressure went up to the point that she was transferred to intensive care unit for Cardene drip. Her mental condition was followed by CT scan of the brain, which was negative and her mental condition improved as soon as her blood pressure was controlled better. She had followup CT of the abdomen and pelvis on the 19 of October, which showed resolution of previously dilated small bowels. The patient did well until she was changed to solid food when she started having more abdominal pain and vomiting, and General Surgery decided to do operation. She had laparoscopic lysis of adhesions done and her postoperative phase was just complicated by lack of normal gut function, which was represented by lack of BM until she was given some stimulant in form of magnesium citrate and she had small bowel movement. She was seen also by Dr. Mansfield, who recommended to keep her on some chronic regimen for constipation after she is discharged from the hospital. The patient finally had bowel movement and she is doing well. She is tolerating food without any problems. Her blood pressure is 163/94, temperature is 98, respiratory rate is 18, O2 saturation is 95% on room air, and her pulse is 95. She is seen and examined before she is discharged. Her lungs are clear. Heart; S1, S2 normal. Abdomen is soft, nontender, and nondistended. Bowel sounds are present. She is discharged home in good condition with recommendation to stay on 2000 calories ADA diet. Activities as tolerated. MEDICATIONS: At the time of discharge, she will continue on: 1. Atorvastatin 40 mg once a day. 2. Calcitriol 0.5 mcg one tablet twice a day. 3. Carvedilol 25 mg twice a day. 4. Fluoxetine 60 mg once a day. 5. Gabapentin 300 mg twice a day. 6. Levothyroxine 100 mcg once a day. 7. Nifedipine 60 mg once a day. 8. Acetaminophen 1000 mg q.8 hours p.r.n. as needed. 9. Rexulti 2 mg daily. 10. Dexilant 30 mg daily. 11. Fluticasone one spray to each nostril once a day. 12. Hydralazine 100 mg 3 times a day. 13. Levemir 16 units twice a day. 14. Lidocaine ointment daily. 15. Amitiza 24 mcg twice a day. 16. Potassium chloride 10 mEq twice a day. 17. Seroquel 200 mg at bedtime. 18. Symbicort one puff daily. 19. Torsemide 100 mg daily. 20. Zolpidem tartrate 5 mg at bedtime. FOLLOWUP: The patient is going to follow up with Dr. Mora in [address] Mansfield in 2 to 3 weeks. TIME SPENT: Time spent on this discharge is more than 30 minutes. Job ID: [id number]
[2018-11-05] MEDS ORDERED: Enoxaparin Sodium 30 MG/0.3 ML SYRINGE SC SCH (09:00)
== END 2018-11-04 14:15 | disposition home or self-care (01) | DRG 335 ==
LOC: ERS 18:21 → 2SE 23:19 → CCU 10-19 10:52 → T4-B 10-21 21:09
PROVIDERS: ADMIT Internal Medicine Nephrology; ATTEND Internal Medicine Nephrology
PROC: 0DNU4ZZ Release Omentum, Percutaneous Endoscopic Approach (ICD-10-PCS; principal; 2018-10-26)
DX: K56.51 Intestinal adhesions [bands], with partial obstruction (principal); I50.33 Acute on chronic diastolic (congestive) heart failure; K50.90 Crohn's disease, unspecified, without complications; N17.9 Acute kidney failure, unspecified; I16.1 Hypertensive emergency; I13.0 Hypertensive heart and chronic kidney disease with heart failure and stage 1 through stage 4 chronic kidney disease, or unspecified chronic kidney disease; E87.2 Acidosis; E87.0 Hyperosmolality and hypernatremia; G93.49 Other encephalopathy; K59.09 Other constipation; G47.33 Obstructive sleep apnea (adult) (pediatric); K21.9 Gastro-esophageal reflux disease without esophagitis; N18.3 Chronic kidney disease, stage 3 (moderate); F17.200 Nicotine dependence, unspecified, uncomplicated; E11.22 Type 2 diabetes mellitus with diabetic chronic kidney disease; F41.9 Anxiety disorder, unspecified; E03.9 Hypothyroidism, unspecified; E87.6 Hypokalemia; E83.42 Hypomagnesemia; K56.7 Ileus, unspecified; Z90.49 Acquired absence of other specified parts of digestive tract; Z91.19 Patient's noncompliance with other medical treatment and regimen; Z79.4 Long term (current) use of insulin; Z90.710 Acquired absence of both cervix and uterus; Z79.899 Other long term (current) drug therapy
CPT/HCPCS: 36415; 36416; 51702; 70450; 74018; 74176; 74250; 80048; 80053; 80069; 81003; 83690; 83735; 85025; 94760; 96361; 96374; 96375; 96376; A4217; A4353; C9113; J0131; J0360; J0670; J0694; J1650; J1885; J1940; J2001; J2250; J2270; J2405; J2704; J3010; J3475; J3480; J3486; J3490; J7042; J7050

== ENCOUNTER 2018-11-12 09:27 | Day surgery (SDC) | payer OTHER ==
[~2018-11-12 09:27] MED LIST changes: +INFLIXIMAB DYYB IVPB SCH; -INFLIXIMAB-DYYB 800 MG in Sodium Chloride 0.9% 250 ML 170 ML IV SCH; +INFLIXIMAB-DYYB 900 MG in Sodium Chloride 0.9% 250 ML 250 ML IVPB SCH; +SODIUM CHLORIDE 0.9% IVPB SCH; +Sodium Chloride 0.9% 20 ML ONE
[2018-11-12 09:30] VITALS: BP 138/93; TEMP 98.5
== END 2018-11-12 12:34 | disposition home or self-care (01) ==
LOC: ONC/OP 09:27
PROVIDERS: ATTEND Internal Medicine Gastroenterology
DX: K50.10 Crohn's disease of large intestine without complications (principal)
CPT/HCPCS: 96413; 96415; J1642; J7050; Q0163; Q5103

== ENCOUNTER 2018-12-08 19:30 | Outpatient (CLI) | payer OTHER | END 2018-12-08 19:31 | disposition home or self-care (01) | LOC: SLEEPLAB 19:30 | PROVIDERS: ATTEND Otolaryngology Plastic Surgery within the Head & Neck | DX: G47.33 Obstructive sleep apnea (adult) (pediatric) (principal); R53.83 Other fatigue; R51 Headache; R06.83 Snoring | CPT/HCPCS: 95810 ==

== ENCOUNTER 2018-12-21 18:44 | Inpatient (IN) | payer OTHER ==
[2018-12-21 19:31] LABS: #Lymphocytes 1.9 thou/uL (1.20-3.40); #Monocytes 1.2 thou/uL (0.11-0.59); #Neutrophils 10.7 thou/uL (1.40-6.50); %Basophils 0.2 % (0.0-1.0); %Eosinophils 0.4 % (0.0-10.0); %Lymphocytes 13.4 % (21.0-51.0); %Monocytes 8.4 % (0.0-10.0); %Neutrophils 77.6 % (42.0-75.0); Hemoglobin 12.3 g/dL (12.0-16.0); Mean Corpuscular HGB CONC 34.2 g/dL (32.0-36.0); Mean Corpuscular Hemoglobin 31.7 pg (27.0-31.0); Mean Corpuscular Volume 92.6 fL (78.0-98.0); Mean Platelet Volume 6.7 fL (7.4-10.4); Platelet Count 420 thou/uL (130-400); RBC Distribution Width 14.5 % (11.5-14.5); Red Blood Cell (RBC) Count 3.88 mill/uL (4.20-5.40); White Blood Cell (WBC) Count 13.7 thou/uL (4.8-10.8)
[2018-12-21 19:46] LABS: Bilirubin Small (Negative); Blood, Urine Large (Negative); Glucose, Urine (Dipstick) Negative (Negative); Leukocyte Small (Negative); Nitrite Positive (Negative); Protein, Urine (Dipstick) 100 mg/dL (Neg-Trace); Urobilinogen 0.2 mg/dL (Less than 2)
[2018-12-21 19:47] LABS: ALT (SGPT) 7 U/L (8-55); AST (SGOT) 15 U/L (5-34); Albumin 3.5 g/dL (3.4-4.8); Alkaline Phosphatase 135 U/L (40-110); Anion Gap 16 mmol/L (10-20); BUN (Urea Nitrogen) 28 mg/dL (9.8-20.1); Bilirubin, Total 0.4 mg/dL (0.2-1.2); Calc. Creatinine Clearance 0 mL/min (70-130); Calcium 8.8 mg/dL (7.8-10.44); Carbon Dioxide 22 mmol/L (23-31); Chloride 103 mmol/L (98-107); Estimated GFR-MDRD 25; Globulin 4.6 g/dL (2.4-3.5); Glucose 140 mg/dL (80-115); Potassium 4.3 mmol/L (3.5-5.1); Protein, Total 8.1 g/dL (6.0-8.3); Sodium 137 mmol/L (136-145)
[2018-12-21 19:56] LABS: Clarity Cloudy (Clear)
[2018-12-21 19:57] LABS: Bacteria/HPF 3+ HPF (None Seen); RBC/HPF Greater than 50 HPF (0-3); Squamous Epithelial 0-3 HPF (0-3)
--- NOTE | 2018-12-21 20:44 | CT ---
CT Abdomen Pelvis WO Con History: Flank pain. Fever. Comparison: CT abdomen and pelvis October 19, 2018 Findings: Lung bases are clear. No pericardial effusion. Extensive left perinephric stranding there i s a hypodensity in the interpolar medial cortex left kidney measuring greater than fluid attenuation not definitively a cyst. No hydroureteronephrosis or nephroureterolithiasis. Reactive lef t retroperitoneal periaortic lymph nodes have enlarged from the comparison exam. Noncontrast evaluation of the spleen, pancreas, liver are unremarkable. Cholecystectomy. No dilated loops of large or small bowel. Impression: 1. Extensive left perinephric stranding without obstructing stone suggesting pyelonephritis. Urinalys is correlation recommended. 2. Reactive left retroperitoneal periaortic lymph nodes.
[2018-12-21] MEDS ORDERED: cefTRIAXone\\ROCEPHIN 2 GM VIAL ONE (21:20)
[2018-12-21] MEDS ORDERED: Acetaminophen 500 MG TAB ONE (21:20)
[2018-12-21] MEDS ORDERED: Ondansetron PF 4 MG/2 ML Vial IVP PRN (22:51)
[2018-12-21] MEDS ORDERED: Ondansetron ODT 4 MG TAB SL PRN (22:51)
[2018-12-21] MEDS ORDERED: Acetaminophen 325 MG TAB PO PRN (22:51)
[2018-12-21] MEDS ORDERED: Vancomycin HCl 1.5 GM in Sodium Chloride 0.9% 250 ML 300 ML IVPB SCH (23:00)
[2018-12-21 23:03] VITALS: BMI 34.4
[2018-12-21] MEDS: Sodium Chloride 0.9% 1,000 ML IV SCH (23:23)
[2018-12-22] MEDS: Sodium Chloride 0.9% 1,000 ML IV SCH ×3 (05:31→17:00)
[2018-12-22] MEDS ORDERED: Calcium Carbonate 500 MG ChewTAB PO PRN (08:27)
[2018-12-22] MEDS ORDERED: Dextrose 50% Abboject 50 ML SYRINGE SLOW IVP PRN (08:27)
[2018-12-22] MEDS ORDERED: Loratadine 10 MG TAB PO PRN (08:27)
[2018-12-22] MEDS ORDERED: Ondansetron PF 4 MG/2 ML Vial IVP PRN (08:27)
[2018-12-22] MEDS ORDERED: HYDROcodone/Acetaminophen 5/325 mg Tablet PO PRN (08:27)
[2018-12-22] MEDS ORDERED: Labetalol HCl 100 MG/20 ML VIAL SLOW IVP PRN (08:27)
[2018-12-22] MEDS ORDERED: Sodium Chloride 0.65% Nasal 44 ML BOT EA NARE PRN (08:27)
[2018-12-22] MEDS ORDERED: Ondansetron ODT 4 MG TAB PO PRN (08:27)
[2018-12-22] MEDS ORDERED: Loperamide HCl 2 MG CAP PO PRN (08:27)
[2018-12-22] MEDS ORDERED: Dextrose 5% in Water 1,000 ML IV PRN (08:27)
[2018-12-22] MEDS ORDERED: HumaLOG 300 UNITS/3 ML VIAL SC PRN ×2 (08:27)
[2018-12-22] MEDS ORDERED: Bisacodyl 10 MG SUPP PR PRN (08:27)
[2018-12-22] MEDS ORDERED: Diabetic Tussin 200 MG/10 ML UDCUP PO PRN (08:27)
[2018-12-22] MEDS ORDERED: Zolpidem Tartrate 5 MG TAB PO PRN (08:27)
[2018-12-22] MEDS ORDERED: Cepastat Lozenges 1 LOZ PO PRN (08:27)
[2018-12-22] MEDS ORDERED: Fluticasone Propionate Nasal Spray 16 gm Bottle NASAL SCH (09:00)
[2018-12-22] MEDS ORDERED: Non-Formulary Item 1 EACH (Doxepin Hcl [Doxepin Hcl] 100 MG) PO SCH (09:00)
[2018-12-22] MEDS ORDERED: LEVEMIR SC SCH (09:00)
[2018-12-22] MEDS ORDERED: Non-Formulary Item 1 EACH (Hydralazine Hcl [Hydralazine Hcl] 100 MG) PO SCH (09:00)
[2018-12-22] MEDS ORDERED: FLUOXETINE HCL 60 MG PO SCH (09:00)
[2018-12-22] MEDS ORDERED: Non-Formulary Item 1 EACH (Nifedipine [Nifedipine Er] 60 MG) PO SCH (09:00)
[2018-12-22] MEDS: traMADol HCl 50 MG TAB PO PRN ×2 (10:54→20:01)
[2018-12-22] MEDS: hydrALAZINE 25 MG TAB PO SCH ×3 (10:56→20:13)
[2018-12-22] MEDS: FLUoxetine HCl 20 MG CAP PO SCH (10:56)
[2018-12-22] MEDS: NIFEdipine XL 60 MG TAB PO SCH (10:57)
[2018-12-22] MEDS: Carvedilol 25 MG TAB PO SCH ×2 (10:57→20:01)
[2018-12-22] MEDS: Saccharomyces boulardii 250 MG CAP PO SCH (10:57)
[2018-12-22] MEDS: Gabapentin 300 MG CAP PO SCH ×2 (10:57→20:01)
[2018-12-22] MEDS: Atorvastatin Calcium 40 MG TAB PO SCH (10:57)
[2018-12-22] MEDS: Doxepin HCl 25 MG CAP PO SCH (10:59)
[2018-12-22] MEDS ORDERED: Vancomycin HCl 1.75 GM in Sodium Chloride 0.9% 500 ML IVPB SCH (11:00)
[2018-12-22] MEDS: Heparin 5,000 UNITS/ML VIAL SC SCH ×3 (11:02→20:02)
[2018-12-22] MEDS: Insulin Glargine 16 UNITS in Pre-Filled Syringe 1 EACH SC SCH ×2 (11:03→20:13)
--- NOTE | 2018-12-22 13:09 | HP ---
PRIMARY CARE PHYSICIAN: Crys Andrade MD REASON FOR ADMISSION: Sepsis, acute on chronic kidney failure, and acute left- sided pyelonephritis. HISTORY OF PRESENT ILLNESS: A 63-year-old female, who has underlying history of hypertension and diabetes type 2, as well as gastroesophageal reflux disease who was sick for last 3 to 4 days at home. The patient reports that symptoms started on last Thursday. At that time, she was having suprapubic pain and increased frequency and burning discomfort with urination. Her symptoms progressed over weekend and on Thursday, the patient noticed blood in her urine and she started having left-sided back pain and flank pain. The patient was becoming more and more weak over weekend and that is why family member brought her to emergency room last night. When she came to emergency room, the patient's temperature was 103.1. She was hypertensive and tachycardic. At home, the patient and family member did not measure temperature and that is why they do not know whether she had fever at home. The patient denies any associated vomiting, but she was feeling nauseated. She was having vague abdominal discomfort. In the emergency room, the patient had CT of abdomen and pelvis without contrast, which showed finding suggestive of acute left-sided pyelonephritis. Her urinalysis was also consistent with urinary tract infection. The patient was meeting sepsis criteria. She has underlying renal insufficiency from acute on chronic kidney failure, and she was treated with vancomycin and Rocephin in the emergency room. Tylenol given and IV fluid was given and subsequently, she was admitted to medical floor. REVIEW OF SYSTEMS: CONSTITUTIONAL: Negative for weight loss or gain, ability to conduct usual activities. SKIN: Negative for rash, itching. EYES: Negative for double vision, pain. ENT/MOUTH: Negative for nose bleeding, neck stiffness, pain, tenderness. CARDIOVASCULAR: Negative for palpitations, dyspnea on exertion, orthopnea. RESPIRATORY: Negative for shortness of breath, wheezing, cough, hemoptysis, fever or night sweats. GASTROINTESTINAL: Negative for poor appetite, abdominal pain, heartburn, nausea , vomiting, constipation, or diarrhea. GENITOURINARY: Negative for urgency, frequency, dysuria, nocturia. MUSCULOSKELETAL: Negative for pain, swelling. NEUROLOGIC/PSYCHIATRIC: Negative for anxiety, depression. ALLERGY/IMMUNOLOGIC: Negative for skin rash, bleeding tendency. Please see my HPI for pertinent positives and negatives. All other review of systems reviewed and negative except as mentioned in HPI. PAST MEDICAL HISTORY: Hypertension; diabetes type 2; obstructive sleep apnea, noncompliance with CPAP machine; history of Crohn disease; gastroesophageal reflux disease; history of pancreatitis; chronic kidney disease stage 3; and history of nephrolithiasis, required stent placement. PAST SURGICAL HISTORY: Ureteral stent placement with history of lithotripsy, abdominal surgery for small-bowel obstruction, partial intestinal resection, appendicectomy, cholecystectomy, and hysterectomy. PAST PSYCHIATRIC HISTORY: Anxiety, depression, and bipolar disorder. SOCIAL HISTORY: The patient is . The patient smokes about half pack per day. She denies any alcohol abuse. She denies any other illicit drug abuse, lives at home with her . FAMILY HISTORY: No strong family history of premature coronary artery disease, stroke, or cancer. ALLERGIES: NO KNOWN DRUG ALLERGIES. CURRENT HOME MEDICATIONS: 1. Lipitor 40 mg p.o. daily. 2. Coreg 25 mg b.i.d. 3. Dexilant 30 mg daily. 4. Doxepin 100 mg daily. 5. Fluoxetine 60 mg daily. 6. Flonase nasal spray daily. 7. Lasix 20 mg daily. 8. Gabapentin 300 mg twice daily. 9. Hydralazine 100 mg t.i.d. 10. Levemir 16 units subcu b.i.d. 11. Losartan 100 mg daily. 12. Amitiza 24 mcg b.i.d. 13. Procardia XL 60 mg daily. 14. Seroquel 200 mg p.o. at bedtime. EMERGENCY ROOM COURSE: The patient has received IV fluid, Rocephin, vancomycin , and Tylenol 1 g. PHYSICAL EXAMINATION: VITAL SIGNS: On arrival, blood pressure 151/79, pulse 106, respiratory rate 22, temperature 103.1, and saturation 95% on room air. Weight 83.4 kg. GENERAL: The patient is currently alert and awake, appears weak. No obvious acute distress. HEENT: Head; normocephalic and atraumatic. Eyes; pupils round and reactive to light. Extraocular muscle intact. ENT; oropharynx within normal limits. Moist mucous membranes. No oral lesion. No pharyngeal erythema. No exudate. NECK: Supple. No JVD. No thyromegaly. No carotid bruit. No jugular venous distention. LUNGS: Clear to auscultation without any rhonchi or rales. CARDIAC: S1 and S2, regular. No murmur. No gallop. No rub. Tachycardia. ABDOMEN: Soft. Bowel sounds present. Suprapubic tenderness noted. Left- sided CVA tenderness noted. BACK: Left-sided CVA tenderness noted. NEUROLOGIC: Nonfocal examination. She moves all 4 limbs. Plantar bilateral flexor. SKIN: No skin rash. PSYCHIATRIC: Normal affect. SIGNIFICANT LABORATORY DATA: CT of abdomen and pelvis without contrast showing extensive left perinephric stranding without obstructive stone suggestive of pyelonephritis, reactive left retroperitoneal lymph node noted. CBC; WBC 13.7, hemoglobin 12.3, platelet 420 with left shift. BMP; sodium 137, potassium 4.3, chloride 103, carbon dioxide 22, BUN 28, creatinine 2.40, glucose 140, calcium 8.8, lactic acid 0.9. LFT; AST 15, ALT 7, alkaline phosphatase 135, and albumin 3.5. Urinalysis consistent with urinary tract infection with nitrite positive and leukocyte esterase positive. ASSESSMENT AND PLAN: Impression: 1. Sepsis with acute organ dysfunction. The patient meets sepsis criteria with leukocytosis, high-grade fever. Source of infection is urinary tract infection with acute pyelonephritis. The patient has associated acute on chronic kidney failure as well. The patient has received appropriate IV fluid in the emergency room. The patient will continue to get IV fluid at 125 mL/h. We will continue with broad-spectrum antibiotic coverage with meropenem and vancomycin. Follow up on blood and urine culture results. 2. Acute pyelonephritis left side without any hydronephrosis or any nephrolithiasis or any obstruction. The patient has late presentation, her symptoms started with lower urinary tract infection and now it progressed to pyelonephritis. The patient has underlying diabetes and she meets sepsis criteria. She will require admission. At this point, we will start with broad-spectrum antibiotic coverage with meropenem and vancomycin and depending upon culture result, we will change to oral antibiotic therapy. We will also consider probiotic therapy. Her pain will be controlled with pain medication with tramadol as needed. 3. Acute on chronic kidney failure, baseline chronic kidney disease stage 3. We will continue with IV fluid with NS at 100 mL/h, and we will repeat BMP tomorrow. 4. Dyslipidemia. Continue Lipitor 40 mg p.o. daily. 5. Gastroesophageal reflux disease. We will continue Protonix 40 mg p.o. daily. 6. Diabetes, type 2. We will continue with Lantus insulin 16 units subcu b.i.d. , and diabetic diet will be given and insulin as per sliding scale protocol. 7. Hypertension. We will continue with Procardia XL 60 mg p.o. daily, Coreg 25 mg p.o. b.i.d., and hydralazine 100 mg p.o. t.i.d. We will hold on losartan therapy because of renal insufficiency. We will also hold on Lasix therapy. 8. Anxiety, depression, and bipolar disorder. Continue fluoxetine 60 mg p.o. daily and Seroquel 200 mg p.o. at bedtime. 9. Chronic low back pain. Continue gabapentin 300 mg p.o. b.i.d. 10. Obesity with body mass index 34. Dietary education given. Weight loss education given. Healthy lifestyle measure discussed with the patient. 11. Deep venous thrombosis prophylaxis. Heparin 5000 units subcu t.i.d. 12. Gastrointestinal prophylaxis. Protonix 40 mg p.o. daily. CODE STATUS: The patient is full code. The patient's is surrogate decision maker. DISPOSITION PLAN: Based on clinical course, we will start PT as well. We are expecting the patient's stay in hospital more than 2 midnights. Plan of care discussed with the patient and family member at bedside. Job ID: [id number] MTDD
[2018-12-22] MEDS: Acetaminophen 325 MG TAB PO PRN ×2 (14:06→20:04)
[2018-12-22] MEDS: Meropenem 500 MG in Sodium Chloride 0.9% 100 ML IVPB SCH ×2 (14:07→21:53)
[2018-12-22] MEDS: Lubiprostone 24 MCG CAP PO SCH (17:00)
[2018-12-22] MEDS ORDERED: FLU VACC QS2019-20(6MOS UP)/PF 60 MCG/0.5 ML SYRINGE IM ONE (21:00)
[2018-12-23] MEDS: Sodium Chloride 0.9% 1,000 ML IV SCH ×2 (00:11→20:39)
[2018-12-23 04:30] LABS: #Eosinphils 0.1 thou/uL (0.0-0.7); #Monocytes 1.2 thou/uL (0.11-0.59); #Neutrophils 9.1 thou/uL (1.40-6.50); %Basophils 0.4 % (0.0-1.0); %Eosinophils 0.4 % (0.0-10.0); %Lymphocytes 16.5 % (21.0-51.0); %Monocytes 9.4 % (0.0-10.0); %Neutrophils 73.3 % (42.0-75.0); Hemoglobin 11.1 g/dL (12.0-16.0); Mean Corpuscular Hemoglobin 31.1 pg (27.0-31.0); Mean Corpuscular Volume 91.7 fL (78.0-98.0); Mean Platelet Volume 6.6 fL (7.4-10.4); Platelet Count 337 thou/uL (130-400); RBC Distribution Width 14.4 % (11.5-14.5); Red Blood Cell (RBC) Count 3.57 mill/uL (4.20-5.40); White Blood Cell (WBC) Count 12.4 thou/uL (4.8-10.8)
[2018-12-23 04:53] LABS: ALT (SGPT) Less than 7 U/L (8-55); AST (SGOT) 11 U/L (5-34); Alkaline Phosphatase 111 U/L (40-110); Anion Gap 10 mmol/L (10-20); BUN (Urea Nitrogen) 23 mg/dL (9.8-20.1); Bilirubin, Total 0.4 mg/dL (0.2-1.2); Calc. Creatinine Clearance 39 mL/min (70-130); Calcium 8.2 mg/dL (7.8-10.44); Carbon Dioxide 23 mmol/L (23-31); Chloride 111 mmol/L (98-107); Estimated GFR-MDRD 31; Globulin 3.9 g/dL (2.4-3.5); Glucose 80 mg/dL (80-115); Potassium 3.5 mmol/L (3.5-5.1); Protein, Total 6.9 g/dL (6.0-8.3); Sodium 140 mmol/L (136-145)
[2018-12-23] MEDS: Meropenem 500 MG in Sodium Chloride 0.9% 100 ML IVPB SCH (05:03)
[2018-12-23] MEDS: NIFEdipine XL 60 MG TAB PO SCH ×2 (08:14→08:42)
[2018-12-23] MEDS: FLUoxetine HCl 20 MG CAP PO SCH (08:15)
[2018-12-23] MEDS: Saccharomyces boulardii 250 MG CAP PO SCH (08:16)
[2018-12-23] MEDS: Lubiprostone 24 MCG CAP PO SCH ×2 (08:16→17:54)
[2018-12-23] MEDS: Atorvastatin Calcium 40 MG TAB PO SCH (08:16)
[2018-12-23] MEDS: hydrALAZINE 25 MG TAB PO SCH ×3 (08:18→20:36)
[2018-12-23] MEDS: Gabapentin 300 MG CAP PO SCH ×2 (08:18→20:36)
[2018-12-23] MEDS: Carvedilol 25 MG TAB PO SCH ×2 (08:19→20:37)
[2018-12-23] MEDS: Heparin 5,000 UNITS/ML VIAL SC SCH ×3 (08:22→20:37)
[2018-12-23] MEDS: Insulin Glargine 16 UNITS in Pre-Filled Syringe 1 EACH SC SCH ×2 (08:22→20:40)
[2018-12-23] MEDS: traMADol HCl 50 MG TAB PO PRN ×2 (08:31→18:42)
[2018-12-23] MEDS: cefTRIAXone\\ROCEPHIN 1 GM in Sodium Chloride 0.9% 100 ML IVPB SCH (08:40)
[2018-12-23] MEDS: Doxepin HCl 25 MG CAP PO SCH (08:41)
--- NOTE | 2018-12-23 12:39 | PDOC.HOSPP ---
- Subjective Encounter Date: 12/23/18 Encounter Time: 09:15 Subjective: Patient seen and examined. No new complaints. No overnight events - Objective Vital Signs & Weight: Vital Signs (12 hours) Temp Pulse Resp BP BP Pulse Ox 12/23/18 08:42 102 H 133/82 12/23/18 08:18 102 H 133/82 12/23/18 08:00 99.5 F 102 H 20 133/82 91 L 12/23/18 04:13 97.7 F Weight Weight 188 lb 4 oz I&O: 12/22/18 12/23/18 12/24/18 06:59 06:59 06:59 Intake Total 1230 1750 Balance 1230 1750 Result Diagrams: 12/23/18 04:16 12/23/18 04:16 Additional Labs: Accuchecks 12/22/18 12/22/18 20:19 15:21 POC Glucose 123 H 123 H Hospitalist ROS - Review of Systems Constitutional: reports: weakness, malaise. denies: fever, chills, sweats, other Eyes: denies: pain, vision change, conjunctivae inflammation, eyelid inflammation, redness, other ENT: denies: ear pain, ear discharge, nose pain, nose discharge, nose congestion , mouth pain, mouth swelling, throat pain, throat swelling, other Respiratory: denies: cough, dry, shortness of breath, hemoptysis, SOB with excertion, pleuritic pain, sputum, wheezing, other Cardiovascular: denies: chest pain, palpitations, orthopnea, paroxysmal noc. dyspnea, edema, light headedness, other Gastrointestinal: denies: nausea, vomiting, abdominal pain, diarrhea, constipation, melena, hematochezia, other Genitourinary: denies: dysuria, frequency, incontinence, hematuria, retention, other Musculoskeletal: denies: neck pain, shoulder pain, arm pain, back pain, hand pain, leg pain, foot pain, other Skin: denies: rash, lesions, sydni, bruising, other - Medication Medications: Active Medications Generic Name Dose Route Start Last Admin Trade Name Freq PRN Reason Stop Dose Admin Acetaminophen 650 mg 12/22/18 08:27 12/22/18 20:04 Tylenol PO 650 mg Q4H PRN Administration Headache/Fever/Mild Pain (1-3) Atorvastatin Calcium 40 mg 12/22/18 09:00 12/23/18 08:16 Lipitor PO 40 mg DAILY JOSSY Administration Carvedilol 25 mg 12/22/18 09:00 12/23/18 08:19 Coreg PO 25 mg BID JOSSY Administration Doxepin HCl 100 mg 12/22/18 09:00 12/23/18 08:41 Sinequan PO 100 mg DAILY JOSSY Administration Fluoxetine HCl 60 mg 12/22/18 09:00 12/23/18 08:15 Prozac PO 60 mg DAILY JOSSY Administration Gabapentin 300 mg 12/22/18 09:00 12/23/18 08:18 Neurontin PO 300 mg BID JOSSY Administration Heparin Sodium (Porcine) 5,000 units 12/22/18 09:00 12/23/18 08:22 Heparin SC 5,000 units TID JOSSY Administration Hydralazine HCl 100 mg 12/22/18 09:00 12/23/18 08:18 Apresoline PO Not Given TID JOSSY Insulin Glargine 16 units/ 0.16 mls @ 0 mls/hr 12/22/18 09:00 12/23/18 08:22 Miscellaneous Medication SC 0.16 mls BID JOSSY Administration Ceftriaxone Sodium 1 gm/ 100 mls @ 200 mls/hr 12/23/18 08:00 12/23/18 08:40 Sodium Chloride IVPB 100 mls 0800 JOSSY Administration Lubiprostone 24 mcg 12/22/18 17:00 12/23/18 08:16 Amitiza PO 24 mcg BID-WM JOSSY Administration Nifedipine 60 mg 12/22/18 09:00 12/23/18 08:42 Procardia Xl PO Not Given DAILY JOSSY Pantoprazole Sodium 40 mg 12/23/18 09:00 12/23/18 08:14 Protonix PO 40 mg DAILY JOSSY Administration Quetiapine Fumarate 200 mg 12/22/18 21:00 12/22/18 20:00 Seroquel PO 200 mg HS JOSSY Administration Saccharomyces Boulardii 250 mg 12/22/18 09:00 12/23/18 08:16 Florastor PO 250 mg DAILY JOSSY Administration Sodium Chloride 10 ml 12/22/18 09:00 12/23/18 08:22 Flush - Normal Saline IVF 10 ml Q12HR JOSSY Administration Tramadol HCl 50 mg 12/22/18 09:20 12/23/18 08:31 Ultram PO 50 mg TIDPRN PRN Administration Pain - Exam General Appearance: NAD, awake alert Eye: PERRL, anicteric sclera ENT: normocephalic atraumatic, no oropharyngeal lesions Neck: supple, symmetric, no JVD, no thyromegaly, no lymphadenopathy Heart: RRR, no murmur, no gallops, no rubs, normal peripheral pulses Respiratory: CTAB, no wheezes, no rales, no ronchi, normal chest expansion Gastrointestinal: soft, non-tender, non-distended, normal bowel sounds Gastrointestinal - other findings: left CVA tenderness Extremities: no cyanosis, no clubbing, no edema Skin: normal turgor, no lesions, no rashes Neurological: cranial nerve grossly intact, no focal deficits Musculoskeletal: normal tone, normal strength, no muscle wasting Psychiatric: normal affect, normal behavior, A&O x 3 Hosp A/P (1) Sepsis with acute organ dysfunction Code(s): A41.9 - SEPSIS, UNSPECIFIED ORGANISM; R65.20 - SEVERE SEPSIS WITHOUT SEPTIC SHOCK Status: Acute Qualifiers: Sepsis type: Streptococcus, other Severe sepsis acute organ dysfunction type: acute renal failure Acute renal failure type: unspecified Severe sepsis shock status: without septic shock Qualified Code(s): A40.8 - Other streptococcal sepsis; R65.20 - Severe sepsis without septic shock; N17.9 - Acute kidney failure, unspecified Plan: due to klebsiella (2) Acute worsening of stage 3 chronic kidney disease Code(s): N18.3 - CHRONIC KIDNEY DISEASE, STAGE 3 (MODERATE) Status: Acute (3) Pyelonephritis of left kidney Code(s): N12 - TUBULO-INTERSTITIAL NEPHRITIS, NOT SPCF ACUTE OR CHRONIC Status: Acute (4) Obesity (BMI 30.0-34.9) Code(s): E66.9 - OBESITY, UNSPECIFIED Status: Chronic (5) Chronic stage c diastolic heart failure Code(s): I50.32 - CHRONIC DIASTOLIC (CONGESTIVE) HEART FAILURE Status: Chronic (6) Physical deconditioning Code(s): R53.81 - OTHER MALAISE Status: Acute (7) Bipolar disorder Code(s): F31.9 - BIPOLAR DISORDER, UNSPECIFIED Status: Chronic Qualifiers: Active/Remission status: in full remission Most recent bipolar episode type : mixed Qualified Code(s): F31.78 - Bipolar disorder, in full remission, most recent episode mixed (8) CAD (coronary artery disease) Code(s): I25.10 - ATHSCL HEART DISEASE OF [place] CORONARY ARTERY W/O ANG PCTRS Status: Chronic Qualifiers: Coronary Disease-Associated Artery/Lesion type: [place] artery [place] vs. transplanted heart: [place] heart Associated angina: without angina Qualified Code(s): I25.10 - Atherosclerotic heart disease of [place] coronary artery without angina pectoris (9) Crohns disease Code(s): K50.90 - CROHN'S DISEASE, UNSPECIFIED, WITHOUT COMPLICATIONS Status: Chronic Qualifiers: Gastrointestinal tract location: unspecified location Digestive disease complication type: without complication Qualified Code(s): K50.90 - Crohn's disease, unspecified, without complications (10) DM type 2 (diabetes mellitus, type 2) Status: Chronic Qualifiers: Diabetes mellitus ocean transportation intermediary insulin use: with ocean transportation intermediary use (11) Hypertension Code(s): I10 - ESSENTIAL (PRIMARY) HYPERTENSION Status: Chronic Qualifiers: Hypertension type: essential hypertension - Plan old records reviewed/req, plan discussed w/ family, continue antibiotics, PT/OT , DVT proph w/lovenox, dc IVF 12/23/18- DC meropenam and vancomycin, dc ivf, start rocephin based on culture result, ambulate as tolerated, medication reviewed as above, symptomatic treatment
[2018-12-23] MEDS: Fluticasone Propionate Nasal Spray 16 gm Bottle NASAL SCH (12:50)
[2018-12-24 07:09] LABS: #Eosinphils 0.1 thou/uL (0.0-0.7); #Lymphocytes 1.4 thou/uL (1.20-3.40); #Monocytes 0.6 thou/uL (0.11-0.59); #Neutrophils 4.5 thou/uL (1.40-6.50); %Eosinophils 1.5 % (0.0-10.0); %Lymphocytes 21.6 % (21.0-51.0); %Monocytes 8.4 % (0.0-10.0); %Neutrophils 68.6 % (42.0-75.0); Hemoglobin 11.8 g/dL (12.0-16.0); Mean Corpuscular Hemoglobin 29.6 pg (27.0-31.0); Mean Corpuscular Volume 92.7 fL (78.0-98.0); Mean Platelet Volume 7.6 fL (7.4-10.4); Platelet Count 360 thou/uL (130-400); RBC Distribution Width 14.6 % (11.5-14.5); Red Blood Cell (RBC) Count 3.97 mill/uL (4.20-5.40); White Blood Cell (WBC) Count 6.6 thou/uL (4.8-10.8)
[2018-12-24 07:32] LABS: Anion Gap 14 mmol/L (10-20); BUN (Urea Nitrogen) 15 mg/dL (9.8-20.1); Calc. Creatinine Clearance 48 mL/min (70-130); Calcium 8.6 mg/dL (7.8-10.44); Carbon Dioxide 17 mmol/L (23-31); Chloride 112 mmol/L (98-107); Estimated GFR-MDRD 40; Glucose 95 mg/dL (80-115); Potassium 3.4 mmol/L (3.5-5.1); Sodium 140 mmol/L (136-145)
--- NOTE | 2018-12-24 08:18 | CON ---
DATE OF CONSULTATION: 12/24/2018 PRIMARY CARE PHYSICIAN: Crys Andrade MD REASON FOR CONSULT: Pyelonephritis, history of hematuria. HISTORY OF PRESENT ILLNESS: Ms. Mosqueda is a 63-year-old female with history of diabetes, TIA, prior history of tobacco abuse. She was previously seen as an inpatient consult back in 2011 as she had postvoid residual of 850 mL. Subsequently, this has resolved. I had last seen her a few months ago in the office in July with no significant postvoid residual of concern. Of note, she has a history of UTI, for which she was on Farxiga. Farxiga has been discontinued with approval of primary care as it resulted in significant glucosuria. She underwent a ureteral stent placement in May of this year as she presented with hydronephrosis. Underwent ureteroscopy, laser lithotripsy of matrix stone debris with endoscopic clearance. Followup CT demonstrates resolution, with no evidence of hydronephrosis and underwent stent pull. She is admitted due to left pyelonephritis, had few days of gross hematuria with UTI symptoms of dysuria. She is currently resting comfortably and feels better with appropriate antibiotic regimen. She is on Rocephin, targeted antibiotic therapy based on urine culture. Her blood culture is negative and she remains afebrile and clinically stable. She was admitted on this admission with a history of fever of 103. Currently, she has been afebrile for 24 to 36 hours with no evidence of hypotension or tachycardia. Urology consulted as there was concern regarding hematuria. Upon further history, she has had hematuria for the last few days preceding presentation to the emergency room consistent with pyelonephritis, cystitis. Of note, she has been on heparin t.i.d. for DVT prophylaxis. PAST MEDICAL HISTORY: Includes diabetes; hypertension; history of TIA, bipolar followed by [facility]; depression; Crohn disease; history of migraine headaches; chronic pain; peripheral vascular disease; GERD; obstructive sleep apnea; constipation, followed by GI, Dr. Mansfield; history of tobacco abuse; chronic renal insufficiency, followed by Dr. Valverde, history of CHF; cataracts; history of osteomyelitis; history of acute pancreatitis; history of mixed incontinence; history of left nephrolithiasis, resolved. PAST SURGICAL HISTORY: Cholecystectomy, hysterectomy, ovarian cystectomy, cardiac cath, appendectomy, EGD, small bowel resection, left stent by Dr. Prakash in May 2018, left ureteroscopy, pyeloscopy, laser lithotripsy July 12, 2018, subsequent stent pull, July 22, 2018. ALLERGIES: NO KNOWN DRUG ALLERGIES. CURRENT MEDICATIONS: Include; 1. Tylenol. 2. [place]. 3. Lipitor. 4. Tums. 5. Coreg. 6. Rocephin. 7. Sinequan. 8. Prozac. 9. Neurontin. 10. Glucagon. 11. Hydralazine. 12. Insulin. 13. Labetalol. 14. Amitiza. 15. Procardia. 16. Zofran. 17. Seroquel. 18. Senokot. 19. Tramadol. She was previously on meropenem and vancomycin, transitioned to Rocephin based on urine culture sensitivity. SOCIAL HISTORY: Previous smoker. Lives with spouse. 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 PHYSICAL EXAMINATION: VITAL SIGNS: Stable at temperature 99.3, pulse oximetry 100%, heart rate 91, blood pressure 145/85. She had a T-max of 101 about 48 hours ago. GENERAL: The patient appears to be in no acute distress. HEENT: Unremarkable. HEART: Regular rate. LUNGS: Clear. ABDOMEN: Morbidly obese, protuberant. No rigidity, no rebound. Left CVA tenderness. : Demonstrates atrophic vaginitis. No significant prolapse of concern. Her voided urine in the commode is constant, clear yellow. I did pass a 16-Cymraes catheter without any issues, demonstrating clear dilute urine. No clots were seen. EXTREMITIES: No cyanosis, clubbing, or edema. PSYCHIATRIC: Appears to be of normal affect. NEUROLOGIC: No gross focal deficits per se. Cooperative to physical exam. PERTINENT IMAGING AND LABORATORY DATA: On admission, white count 13, currently it is 6, hemoglobin stable at 11.8. Creatinine is 1.9. Her baseline creatinine is variable from 1.2 to 3.5. Pertinent labs, UA demonstrates red urine on initial presentation, 100 protein, positive nitrites, 0 to 3 epithelials, 3+ bacteria. Klebsiella urine culture pansensitive, currently on Rocephin. Blood culture negative x2. CT of the abdomen and pelvis, which I reviewed myself without contrast, left perinephric stranding consistent with left pyelonephritis. Per my review, the bladder is not significantly distended. Reactive left retroperitoneal para- aortic lymph nodes. No evidence of renal lithiasis or hydronephrosis on CT. IMPRESSION AND PLAN: Ms. Mosqueda is a 63-year-old female with; 1. History of left hydronephrosis, status post laser lithotripsy and resolution earlier this year. She is currently admitted for left Klebsiella pyelonephritis. She was previously on Farxiga. This is absolutely contraindicated in this patient. Her recent hemoglobin A1c is 5.9. Recommend continuing urine culture targeted therapy on IV Rocephin. As she presents with pyelonephritis, she will require at minimum 4 weeks of antibiotic therapy. As it is sensitive to quinolones, I do recommend Levaquin, renally adjusted dose at minimum 4 weeks. 2. Urologic consultation was obtained for gross hematuria. This is consistent with hemorrhagic cystitis, pyelonephritis. She no longer has hematuria of concern. Recommend discontinuing heparin subcu DVT prophylaxis; mechanical devices advised and aggressive out of bed, physical therapy. will sign off, call if questions or concerns. [facility] covering me this weekend for p.r.n. issues. Job ID: [id number] MTDD
[2018-12-24] MEDS: hydrALAZINE 25 MG TAB PO SCH ×3 (09:01→19:59)
[2018-12-24] MEDS: Lubiprostone 24 MCG CAP PO SCH ×2 (09:01→18:27)
[2018-12-24] MEDS: Sodium Chloride 0.9% 1,000 ML IV SCH (09:01)
[2018-12-24] MEDS: Saccharomyces boulardii 250 MG CAP PO SCH (09:01)
[2018-12-24] MEDS: cefTRIAXone\\ROCEPHIN 1 GM in Sodium Chloride 0.9% 100 ML IVPB SCH (09:07)
[2018-12-24] MEDS: Doxepin HCl 25 MG CAP PO SCH (10:10)
[2018-12-24] MEDS: Atorvastatin Calcium 40 MG TAB PO SCH (10:11)
[2018-12-24] MEDS: FLUoxetine HCl 20 MG CAP PO SCH (10:12)
[2018-12-24] MEDS: Carvedilol 25 MG TAB PO SCH ×2 (10:14→20:00)
[2018-12-24] MEDS: NIFEdipine XL 60 MG TAB PO SCH (10:15)
[2018-12-24] MEDS: Gabapentin 300 MG CAP PO SCH ×2 (10:15→20:00)
[2018-12-24] MEDS: Insulin Glargine 16 UNITS in Pre-Filled Syringe 1 EACH SC SCH ×2 (10:18→20:27)
--- NOTE | 2018-12-24 11:43 | PDOC.HOSPP ---
- Subjective Encounter Date: 12/24/18 Encounter Time: 09:00 Subjective: yesterday pt had gross hematuria, so urology consulted today, no fever, Patient seen and examined. No overnight events - Objective Vital Signs & Weight: Vital Signs (12 hours) Temp Pulse Resp BP BP Pulse Ox 12/24/18 10:15 102 H 158/97 H 12/24/18 09:01 102 H 158/97 H 12/24/18 07:46 99.6 F 102 H 19 158/97 H 93 L 12/24/18 04:17 99.3 F 100 16 145/85 H 91 L 12/24/18 00:36 98.2 F 99 16 162/105 H 92 L Weight Weight 188 lb 4 oz I&O: 12/23/18 12/24/18 12/25/18 06:59 06:59 06:59 Intake Total 1750 600 Balance 1750 600 Result Diagrams: 12/24/18 06:27 12/24/18 06:27 Additional Labs: Accuchecks 12/24/18 12/24/18 12/23/18 04:29 00:10 19:46 POC Glucose 65 L 82 82 12/23/18 12/23/18 16:16 12:35 POC Glucose 84 108 Hospitalist ROS - Review of Systems Constitutional: denies: fever, chills, sweats, weakness, malaise, other ENT: denies: ear pain, ear discharge, nose pain, nose discharge, nose congestion , mouth pain, mouth swelling, throat pain, throat swelling, other Respiratory: denies: cough, dry, shortness of breath, hemoptysis, SOB with excertion, pleuritic pain, sputum, wheezing, other Cardiovascular: denies: chest pain, palpitations, orthopnea, paroxysmal noc. dyspnea, edema, light headedness, other Gastrointestinal: denies: nausea, vomiting, abdominal pain, diarrhea, constipation, melena, hematochezia, other Genitourinary: reports: hematuria. denies: dysuria, frequency, incontinence, retention, other Musculoskeletal: denies: neck pain, shoulder pain, arm pain, back pain, hand pain, leg pain, foot pain, other Skin: denies: rash, lesions, sydni, bruising, other - Medication Medications: Active Medications Generic Name Dose Route Start Last Admin Trade Name Freq PRN Reason Stop Dose Admin Acetaminophen 650 mg 12/22/18 08:27 12/22/18 20:04 Tylenol PO 650 mg Q4H PRN Administration Headache/Fever/Mild Pain (1-3) Atorvastatin Calcium 40 mg 12/22/18 09:00 12/24/18 10:11 Lipitor PO 40 mg DAILY JSOSY Administration Carvedilol 25 mg 12/22/18 09:00 12/24/18 10:14 Coreg PO 25 mg BID JOSSY Administration Doxepin HCl 100 mg 12/22/18 09:00 12/24/18 10:10 Sinequan PO 100 mg DAILY JOSSY Administration Fluoxetine HCl 60 mg 12/22/18 09:00 12/24/18 10:12 Prozac PO 60 mg DAILY JOSSY Administration Fluticasone Propionate 0 gm 12/23/18 09:00 12/23/18 12:50 Flonase Nasal [place] NASAL 1 spr DAILY JOSSY Administration Gabapentin 300 mg 12/22/18 09:00 12/24/18 10:15 Neurontin PO 300 mg BID JOSSY Administration Hydralazine HCl 100 mg 12/22/18 09:00 12/24/18 09:01 Apresoline PO 100 mg TID JOSSY Administration Insulin Glargine 16 units/ 0.16 mls @ 0 mls/hr 12/22/18 09:00 12/24/18 10:18 Miscellaneous Medication SC Not Given BID JOSSY Ceftriaxone Sodium 1 gm/ 100 mls @ 200 mls/hr 12/23/18 08:00 12/24/18 09:07 Sodium Chloride IVPB 100 mls 0800 JOSSY Administration Sodium Chloride 1,000 mls @ 70 mls/hr 12/23/18 19:15 12/24/18 09:01 Normal Saline 0.9% IV 1,000 mls .[id number] JOSSY Administration Lubiprostone 24 mcg 12/22/18 17:00 12/24/18 09:01 Amitiza PO 24 mcg BID-WM JOSSY Administration Nifedipine 60 mg 12/22/18 09:00 12/24/18 10:15 Procardia Xl PO 60 mg DAILY JOSSY Administration Ondansetron HCl 4 mg 12/22/18 08:27 12/23/18 20:45 Zofran IVP 4 mg Q6H PRN Administration Nausea/Vomiting Pantoprazole Sodium 40 mg 12/23/18 09:00 12/24/18 10:14 Protonix PO 40 mg DAILY JOSSY Administration Quetiapine Fumarate 200 mg 12/22/18 21:00 12/23/18 20:40 Seroquel PO 200 mg HS JOSSY Administration Saccharomyces Boulardii 250 mg 12/22/18 09:00 12/24/18 09:01 Florastor PO 250 mg DAILY JOSSY Administration Sodium Chloride 10 ml 12/22/18 09:00 12/24/18 10:19 Flush - Normal Saline IVF Not Given Q12HR JOSSY Tramadol HCl 50 mg 12/22/18 09:20 12/23/18 18:42 Ultram PO 50 mg TIDPRN PRN Administration Pain - Exam General Appearance: NAD, awake alert Eye: PERRL, anicteric sclera ENT: normocephalic atraumatic, no oropharyngeal lesions Neck: supple, symmetric, no JVD, no thyromegaly Heart: RRR, no murmur, no gallops, no rubs, normal peripheral pulses Respiratory: CTAB, no wheezes, no rales, no ronchi Gastrointestinal: soft, non-tender, non-distended, normal bowel sounds Gastrointestinal - other findings: left CVA tenderness+ Extremities: no cyanosis, no clubbing, no edema Skin: normal turgor, no lesions Neurological: cranial nerve grossly intact, no focal deficits Musculoskeletal: normal tone, normal strength, no muscle wasting Psychiatric: normal affect, normal behavior Hosp A/P (1) Sepsis with acute organ dysfunction Code(s): A41.9 - SEPSIS, UNSPECIFIED ORGANISM; R65.20 - SEVERE SEPSIS WITHOUT SEPTIC SHOCK Status: Acute Qualifiers: Sepsis type: Streptococcus, other Severe sepsis acute organ dysfunction type: acute renal failure Acute renal failure type: unspecified Severe sepsis shock status: without septic shock Qualified Code(s): A40.8 - Other streptococcal sepsis; R65.20 - Severe sepsis without septic shock; N17.9 - Acute kidney failure, unspecified (2) Acute worsening of stage 3 chronic kidney disease Code(s): N18.3 - CHRONIC KIDNEY DISEASE, STAGE 3 (MODERATE) Status: Acute (3) Pyelonephritis of left kidney Code(s): N12 - TUBULO-INTERSTITIAL NEPHRITIS, NOT SPCF ACUTE OR CHRONIC Status: Acute (4) Obesity (BMI 30.0-34.9) Code(s): E66.9 - OBESITY, UNSPECIFIED Status: Chronic (5) Chronic stage c diastolic heart failure Code(s): I50.32 - CHRONIC DIASTOLIC (CONGESTIVE) HEART FAILURE Status: Chronic (6) Physical deconditioning Code(s): R53.81 - OTHER MALAISE Status: Acute (7) Bipolar disorder Code(s): F31.9 - BIPOLAR DISORDER, UNSPECIFIED Status: Chronic Qualifiers: Active/Remission status: in full remission Most recent bipolar episode type : mixed Qualified Code(s): F31.78 - Bipolar disorder, in full remission, most recent episode mixed (8) CAD (coronary artery disease) Code(s): I25.10 - ATHSCL HEART DISEASE OF [place] CORONARY ARTERY W/O ANG PCTRS Status: Chronic Qualifiers: Coronary Disease-Associated Artery/Lesion type: [place] artery [place] vs. transplanted heart: [place] heart Associated angina: without angina Qualified Code(s): I25.10 - Atherosclerotic heart disease of [place] coronary artery without angina pectoris (9) Crohns disease Code(s): K50.90 - CROHN'S DISEASE, UNSPECIFIED, WITHOUT COMPLICATIONS Status: Chronic Qualifiers: Gastrointestinal tract location: unspecified location Digestive disease complication type: without complication Qualified Code(s): K50.90 - Crohn's disease, unspecified, without complications (10) DM type 2 (diabetes mellitus, type 2) Status: Chronic Qualifiers: Diabetes mellitus nursing home insulin use: with machine long goods helper use (11) Hypertension Code(s): I10 - ESSENTIAL (PRIMARY) HYPERTENSION Status: Chronic Qualifiers: Hypertension type: essential hypertension - Plan old records reviewed/req, plan discussed w/ family, continue antibiotics, PT/OT 12/23/18- DC meropenam and vancomycin, dc ivf, start rocephin based on culture result, ambulate as tolerated, medication reviewed as above, symptomatic treatment 12/24/18- urology recommendation appreciated, on discharge oral cipro, medication reviewed as above, symptomatic treatment, monitor for any recurrent hematuria, ambulate today, DC heparin, continue IVF
[2018-12-24] MEDS: Fluticasone Propionate Nasal Spray 16 gm Bottle NASAL SCH (14:39)
[2018-12-24] MEDS: traMADol HCl 50 MG TAB PO PRN (18:56)
[2018-12-24] MEDS: Acetaminophen 325 MG TAB PO PRN (20:01)
[2018-12-24] MEDS: Senokot S 8.6-50 MG TAB PO PRN (20:08)
[2018-12-25] MEDS: Sodium Chloride 0.9% 1,000 ML IV SCH ×3 (00:15→15:55)
[2018-12-25] MEDS: traMADol HCl 50 MG TAB PO PRN ×2 (05:31→18:34)
[2018-12-25] MEDS: Doxepin HCl 25 MG CAP PO SCH (08:48)
[2018-12-25] MEDS: cefTRIAXone\\ROCEPHIN 1 GM in Sodium Chloride 0.9% 100 ML IVPB SCH (08:48)
[2018-12-25] MEDS: hydrALAZINE 25 MG TAB PO SCH ×3 (08:49→20:33)
[2018-12-25] MEDS: Saccharomyces boulardii 250 MG CAP PO SCH (08:49)
[2018-12-25] MEDS: FLUoxetine HCl 20 MG CAP PO SCH (08:49)
[2018-12-25] MEDS: NIFEdipine XL 60 MG TAB PO SCH (08:49)
[2018-12-25] MEDS: Atorvastatin Calcium 40 MG TAB PO SCH (08:50)
[2018-12-25] MEDS: Carvedilol 25 MG TAB PO SCH ×2 (08:50→20:33)
[2018-12-25] MEDS: Senokot S 8.6-50 MG TAB PO PRN ×2 (08:50→20:38)
[2018-12-25] MEDS: Lubiprostone 24 MCG CAP PO SCH ×2 (08:50→15:56)
[2018-12-25] MEDS: Fluticasone Propionate Nasal Spray 16 gm Bottle NASAL SCH (08:50)
[2018-12-25] MEDS: Gabapentin 300 MG CAP PO SCH ×2 (08:50→20:33)
[2018-12-25] MEDS: Insulin Glargine 16 UNITS in Pre-Filled Syringe 1 EACH SC SCH ×2 (08:51→20:34)
--- NOTE | 2018-12-25 14:20 | PDOC.HOSPP ---
- Subjective Encounter Date: 12/25/18 Encounter Time: 09:15 Subjective: c/o right LE pain to ambulate no sob - Objective Vital Signs & Weight: Vital Signs (12 hours) Temp Pulse Resp BP Pulse Ox 12/25/18 11:40 98.6 F 92 18 157/94 H 95 12/25/18 08:50 97 12/25/18 08:16 98.9 F 105 H 20 185/112 H 97 12/25/18 07:30 93 L 12/25/18 05:08 99.0 F 99 18 165/95 H 93 L Weight Weight 188 lb 4 oz I&O: 12/24/18 12/25/18 12/26/18 06:59 06:59 06:59 Intake Total 600 1200 Balance 600 1200 Result Diagrams: 12/24/18 06:27 12/24/18 06:27 Additional Labs: Accuchecks 12/25/18 12/25/18 12/24/18 11:32 05:13 20:20 POC Glucose 122 H 93 151 H 12/24/18 16:32 POC Glucose 131 H Hospitalist ROS - Medication Medications: Active Medications Generic Name Dose Route Start Last Admin Trade Name Freq PRN Reason Stop Dose Admin Acetaminophen 650 mg 12/22/18 08:27 12/24/18 20:01 Tylenol PO 650 mg Q4H PRN Administration Headache/Fever/Mild Pain (1-3) Atorvastatin Calcium 40 mg 12/22/18 09:00 12/25/18 08:50 Lipitor PO 40 mg DAILY JOSSY Administration Carvedilol 25 mg 12/22/18 09:00 12/25/18 08:50 Coreg PO 25 mg BID JOSSY Administration Doxepin HCl 100 mg 12/22/18 09:00 12/25/18 08:48 Sinequan PO 100 mg DAILY JOSSY Administration Fluoxetine HCl 60 mg 12/22/18 09:00 12/25/18 08:49 Prozac PO 60 mg DAILY JOSSY Administration Fluticasone Propionate 0 gm 12/23/18 09:00 12/25/18 08:50 Flonase Nasal [place] NASAL 1 spr DAILY JOSSY Administration Gabapentin 300 mg 12/22/18 09:00 12/25/18 08:50 Neurontin PO 300 mg BID JOSSY Administration Hydralazine HCl 100 mg 12/22/18 09:00 12/25/18 13:50 Apresoline PO 100 mg TID JOSSY Administration Insulin Glargine 16 units/ 0.16 mls @ 0 mls/hr 12/22/18 09:00 12/25/18 08:51 Miscellaneous Medication SC Not Given BID JOSSY Ceftriaxone Sodium 1 gm/ 100 mls @ 200 mls/hr 12/23/18 08:00 12/25/18 08:48 Sodium Chloride IVPB 100 mls 0800 JOSSY Administration Sodium Chloride 1,000 mls @ 70 mls/hr 12/23/18 19:15 12/25/18 13:32 Normal Saline 0.9% IV Not Given .[id number] [facility] Lubiprostone 24 mcg 12/22/18 17:00 12/25/18 08:50 Amitiza PO 24 mcg BID-WM JOSSY Administration Nifedipine 60 mg 12/22/18 09:00 12/25/18 08:49 Procardia Xl PO 60 mg DAILY JOSSY Administration Ondansetron HCl 4 mg 12/22/18 08:27 12/25/18 11:57 Zofran Odt PO 4 mg Q6H PRN Administration Nausea/Vomiting Ondansetron HCl 4 mg 12/22/18 08:27 12/23/18 20:45 Zofran IVP 4 mg Q6H PRN Administration Nausea/Vomiting Pantoprazole Sodium 40 mg 12/23/18 09:00 12/25/18 08:49 Protonix PO 40 mg DAILY JOSSY Administration Quetiapine Fumarate 200 mg 12/22/18 21:00 12/24/18 20:00 Seroquel PO 200 mg HS JOSSY Administration Saccharomyces Boulardii 250 mg 12/22/18 09:00 12/25/18 08:49 Florastor PO 250 mg DAILY JOSSY Administration Senna/Docusate Sodium 2 tab 12/22/18 08:27 12/25/18 08:50 Senokot S PO 2 tab BID PRN Administration Constipation Sodium Chloride 10 ml 12/22/18 09:00 12/25/18 08:52 Flush - Normal Saline IVF 10 ml Q12HR JOSSY Administration Tramadol HCl 50 mg 12/22/18 09:20 12/25/18 05:31 Ultram PO 50 mg TIDPRN PRN Administration Pain - Exam General Appearance: NAD, awake alert Eye: PERRL, anicteric sclera ENT: no oropharyngeal lesions, moist mucosa Neck: supple, no JVD Heart: RRR, no murmur Respiratory: no wheezes, no rales Gastrointestinal: soft, non-tender, non-distended, normal bowel sounds Extremities: no cyanosis, 1+ LE edema Neurological: cranial nerve grossly intact, no focal deficits Psychiatric: normal affect, A&O x 3 Hosp A/P (1) Pyelonephritis of left kidney Code(s): N12 - TUBULO-INTERSTITIAL NEPHRITIS, NOT SPCF ACUTE OR CHRONIC Status: Acute (2) Acute worsening of stage 3 chronic kidney disease Code(s): N18.3 - CHRONIC KIDNEY DISEASE, STAGE 3 (MODERATE) Status: Acute (3) Sepsis with acute organ dysfunction Code(s): A41.9 - SEPSIS, UNSPECIFIED ORGANISM; R65.20 - SEVERE SEPSIS WITHOUT SEPTIC SHOCK Status: Acute Qualifiers: Sepsis type: Streptococcus, other Severe sepsis acute organ dysfunction type: acute renal failure Acute renal failure type: unspecified Severe sepsis shock status: without septic shock Qualified Code(s): A40.8 - Other streptococcal sepsis; R65.20 - Severe sepsis without septic shock; N17.9 - Acute kidney failure, unspecified (4) Chronic stage c diastolic heart failure Code(s): I50.32 - CHRONIC DIASTOLIC (CONGESTIVE) HEART FAILURE Status: Chronic (5) Obesity (BMI 30.0-34.9) Code(s): E66.9 - OBESITY, UNSPECIFIED Status: Chronic (6) Bipolar disorder Code(s): F31.9 - BIPOLAR DISORDER, UNSPECIFIED Status: Chronic Qualifiers: Active/Remission status: in full remission Most recent bipolar episode type : mixed Qualified Code(s): F31.78 - Bipolar disorder, in full remission, most recent episode mixed (7) CAD (coronary artery disease) Code(s): I25.10 - ATHSCL HEART DISEASE OF [place] CORONARY ARTERY W/O ANG PCTRS Status: Chronic Qualifiers: Coronary Disease-Associated Artery/Lesion type: [place] artery [place] vs. transplanted heart: [place] heart Associated angina: without angina Qualified Code(s): I25.10 - Atherosclerotic heart disease of [place] coronary artery without angina pectoris (8) DM type 2 (diabetes mellitus, type 2) Status: Chronic Qualifiers: Diabetes mellitus snf insulin use: with snf use (9) Hypertension Code(s): I10 - ESSENTIAL (PRIMARY) HYPERTENSION Status: Chronic Qualifiers: Hypertension type: essential hypertension - Plan hemostable usg venous doppler to r/o dvt is on ceftriaxone for pyelonephritis no further hematuria continue coreg, lipitor, prozac, neurontin, hydralazine, lantus, procardia xl, seroquel, amitiza to mobilize as tolerated
[2018-12-25] MEDS: Acetaminophen 325 MG TAB PO PRN (20:33)
[2018-12-26] MEDS: Sodium Chloride 0.9% 1,000 ML IV SCH ×2 (05:40→20:18)
[2018-12-26] MEDS: traMADol HCl 50 MG TAB PO PRN ×2 (05:41→11:47)
--- NOTE | 2018-12-26 07:33 | ULT ---
Venous duplex sonogram bilateral lower extremity HISTORY: Bilateral leg and pain and edema. FINDINGS: Each common femoral vein and greater saphenous junction were evaluated along with each femo ral, deep femoral, popliteal, posterior tibial vein. There is good color and spectral Doppler flow, compression, and augmentation. IMPRESSION: No sonographic evidence of DVT within either lower extremity.
[2018-12-26 07:49] LABS: #Eosinphils 0.2 thou/uL (0.0-0.7); #Lymphocytes 1.5 thou/uL (1.20-3.40); #Monocytes 0.6 thou/uL (0.11-0.59); #Neutrophils 3.5 thou/uL (1.40-6.50); %Basophils 0.1 % (0.0-1.0); %Eosinophils 2.9 % (0.0-10.0); %Lymphocytes 25.7 % (21.0-51.0); %Monocytes 10.7 % (0.0-10.0); %Neutrophils 60.7 % (42.0-75.0); Hemoglobin 11.8 g/dL (12.0-16.0); Mean Corpuscular HGB CONC 33.6 g/dL (32.0-36.0); Mean Corpuscular Hemoglobin 31.2 pg (27.0-31.0); Mean Corpuscular Volume 92.9 fL (78.0-98.0); Mean Platelet Volume 6.6 fL (7.4-10.4); Platelet Count 401 thou/uL (130-400); RBC Distribution Width 14.5 % (11.5-14.5); Red Blood Cell (RBC) Count 3.78 mill/uL (4.20-5.40); White Blood Cell (WBC) Count 5.8 thou/uL (4.8-10.8)
[2018-12-26] MEDS: cefTRIAXone\\ROCEPHIN 1 GM in Sodium Chloride 0.9% 100 ML IVPB SCH (08:06)
[2018-12-26 08:08] LABS: Anion Gap 13 mmol/L (10-20); BUN (Urea Nitrogen) 10 mg/dL (9.8-20.1); Calc. Creatinine Clearance 56 mL/min (70-130); Calcium 8.7 mg/dL (7.8-10.44); Carbon Dioxide 21 mmol/L (23-31); Chloride 111 mmol/L (98-107); Estimated GFR-MDRD 47; Glucose 118 mg/dL (80-115); Potassium 3.5 mmol/L (3.5-5.1); Sodium 141 mmol/L (136-145)
[2018-12-26] MEDS: Fluticasone Propionate Nasal Spray 16 gm Bottle NASAL SCH (08:10)
[2018-12-26] MEDS: NIFEdipine XL 60 MG TAB PO SCH (08:11)
[2018-12-26] MEDS: Atorvastatin Calcium 40 MG TAB PO SCH (08:14)
[2018-12-26] MEDS: hydrALAZINE 25 MG TAB PO SCH ×3 (08:14→20:17)
[2018-12-26] MEDS: Saccharomyces boulardii 250 MG CAP PO SCH (08:15)
[2018-12-26] MEDS: FLUoxetine HCl 20 MG CAP PO SCH (08:15)
[2018-12-26] MEDS: Gabapentin 300 MG CAP PO SCH ×2 (08:15→20:17)
[2018-12-26] MEDS: Carvedilol 25 MG TAB PO SCH ×2 (08:16→20:17)
[2018-12-26] MEDS: Doxepin HCl 25 MG CAP PO SCH (08:16)
[2018-12-26] MEDS: Lubiprostone 24 MCG CAP PO SCH ×2 (08:17→17:18)
[2018-12-26] MEDS: Insulin Glargine 16 UNITS in Pre-Filled Syringe 1 EACH SC SCH (08:20)
[2018-12-26] MEDS: Senokot S 8.6-50 MG TAB PO PRN (10:06)
[2018-12-26] MEDS: hydrALAZINE 20 MG/ML VIAL SLOW IVP PRN (11:43)
--- NOTE | 2018-12-26 12:03 | PDOC.HOSPP ---
- Subjective Encounter Date: 12/26/18 Encounter Time: 08:15 Subjective: right leg pain is better says she is constipated and has tried suppository and softeners golytely works good per patient is not eating much, her insulins are held - Objective Vital Signs & Weight: Vital Signs (12 hours) Temp Pulse Resp BP BP BP Pulse Ox 12/26/18 11:43 94 172/114 H 12/26/18 11:40 98.8 F 94 20 172/114 H 95 12/26/18 08:14 106 H 201/120 H 12/26/18 08:11 106 H 201/120 H 12/26/18 08:00 98.3 F 106 H 20 201/102 H 93 L 12/26/18 05:13 98.3 F Weight Weight 188 lb 4 oz I&O: 12/25/18 12/26/18 12/27/18 06:59 06:59 06:59 Intake Total 1200 3058 Balance 1200 3058 Result Diagrams: 12/26/18 07:36 12/26/18 07:36 Additional Labs: Accuchecks 12/26/18 12/26/18 12/25/18 11:06 05:47 20:19 POC Glucose 124 H 120 H 112 H 12/25/18 15:46 POC Glucose 123 H Hospitalist ROS - Medication Medications: Active Medications Generic Name Dose Route Start Last Admin Trade Name Freq PRN Reason Stop Dose Admin Acetaminophen 650 mg 12/22/18 08:27 12/25/18 20:33 Tylenol PO 650 mg Q4H PRN Administration Headache/Fever/Mild Pain (1-3) Atorvastatin Calcium 40 mg 12/22/18 09:00 12/26/18 08:14 Lipitor PO 40 mg DAILY JOSSY Administration Bisacodyl 10 mg 12/22/18 08:27 12/26/18 05:45 Dulcolax [place] 10 mg DAILYPRN PRN Administration Constipation Carvedilol 25 mg 12/22/18 09:00 12/26/18 08:16 Coreg PO 25 mg BID JOSSY Administration Doxepin HCl 100 mg 12/22/18 09:00 12/26/18 08:16 Sinequan PO 100 mg DAILY JOSSY Administration Fluoxetine HCl 60 mg 12/22/18 09:00 12/26/18 08:15 Prozac PO 60 mg DAILY JOSSY Administration Fluticasone Propionate 0 gm 12/23/18 09:00 12/26/18 08:10 Flonase Nasal [place] NASAL 1 spr DAILY JOSSY Administration Gabapentin 300 mg 12/22/18 09:00 12/26/18 08:15 Neurontin PO 300 mg BID JOSSY Administration Hydralazine HCl 10 mg 12/22/18 08:27 12/26/18 11:43 Apresoline SLOW IVP 10 mg Q4H PRN Administration SBP > 180 and HR < 70 Hydralazine HCl 100 mg 12/22/18 09:00 12/26/18 08:14 Apresoline PO 100 mg TID JOSSY Administration Ceftriaxone Sodium 1 gm/ 100 mls @ 200 mls/hr 12/23/18 08:00 12/26/18 08:06 Sodium Chloride IVPB 100 mls 0800 JOSSY Administration Sodium Chloride 1,000 mls @ 70 mls/hr 12/23/18 19:15 12/26/18 05:40 Normal Saline 0.9% IV 1,000 mls .[id number] JOSSY Administration Lubiprostone 24 mcg 12/22/18 17:00 12/26/18 08:17 Amitiza PO 24 mcg BID-WM JOSSY Administration Nifedipine 60 mg 12/22/18 09:00 12/26/18 08:11 Procardia Xl PO 60 mg DAILY JOSSY Administration Ondansetron HCl 4 mg 12/22/18 08:27 12/25/18 11:57 Zofran Odt PO 4 mg Q6H PRN Administration Nausea/Vomiting Ondansetron HCl 4 mg 12/22/18 08:27 12/23/18 20:45 Zofran IVP 4 mg Q6H PRN Administration Nausea/Vomiting Pantoprazole Sodium 40 mg 12/23/18 09:00 12/26/18 08:16 Protonix PO 40 mg DAILY JOSSY Administration Quetiapine Fumarate 200 mg 12/22/18 21:00 12/25/18 20:33 Seroquel PO 200 mg HS JOSSY Administration Saccharomyces Boulardii 250 mg 12/22/18 09:00 12/26/18 08:15 Florastor PO 250 mg DAILY JOSSY Administration Senna/Docusate Sodium 2 tab 12/22/18 08:27 12/26/18 10:06 Senokot S PO 2 tab BID PRN Administration Constipation Sodium Chloride 10 ml 12/22/18 09:00 12/26/18 08:19 Flush - Normal Saline IVF 10 ml Q12HR JOSSY Administration Tramadol HCl 50 mg 12/22/18 09:20 12/26/18 11:47 Ultram PO 50 mg TIDPRN PRN Administration Pain - Exam General Appearance: NAD, awake alert Eye: PERRL, anicteric sclera ENT: normocephalic atraumatic, no oropharyngeal lesions, moist mucosa Neck: supple, no JVD Heart: RRR, no murmur Respiratory: no wheezes, no rales Gastrointestinal: soft, non-tender, non-distended, normal bowel sounds, no guarding, no rigidity Extremities: no cyanosis, no edema Neurological: cranial nerve grossly intact, no focal deficits Psychiatric: normal affect, A&O x 3 Hosp A/P (1) Pyelonephritis of left kidney Code(s): N12 - TUBULO-INTERSTITIAL NEPHRITIS, NOT SPCF ACUTE OR CHRONIC Status: Acute (2) Acute worsening of stage 3 chronic kidney disease Code(s): N18.3 - CHRONIC KIDNEY DISEASE, STAGE 3 (MODERATE) Status: Acute (3) Sepsis with acute organ dysfunction Code(s): A41.9 - SEPSIS, UNSPECIFIED ORGANISM; R65.20 - SEVERE SEPSIS WITHOUT SEPTIC SHOCK Status: Resolved Qualifiers: Severe sepsis acute organ dysfunction type: acute renal failure Acute renal failure type: unspecified Severe sepsis shock status: without septic shock Plan: klebsiella (4) Chronic stage c diastolic heart failure Code(s): I50.32 - CHRONIC DIASTOLIC (CONGESTIVE) HEART FAILURE Status: Chronic (5) Obesity (BMI 30.0-34.9) Code(s): E66.9 - OBESITY, UNSPECIFIED Status: Chronic (6) Bipolar disorder Code(s): F31.9 - BIPOLAR DISORDER, UNSPECIFIED Status: Chronic Qualifiers: Active/Remission status: in full remission Most recent bipolar episode type : mixed Qualified Code(s): F31.78 - Bipolar disorder, in full remission, most recent episode mixed (7) CAD (coronary artery disease) Code(s): I25.10 - ATHSCL HEART DISEASE OF [place] CORONARY ARTERY W/O ANG PCTRS Status: Chronic Qualifiers: Coronary Disease-Associated Artery/Lesion type: [place] artery [place] vs. 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
[2018-12-26] MEDS ORDERED: GoLYTELY 4,000 ml Bottle PO SCH (12:15)
[2018-12-27] MEDS: hydrALAZINE 20 MG/ML VIAL SLOW IVP PRN (05:50)
[2018-12-27 07:43] VITALS: TEMP 98.8
[2018-12-27] MEDS: hydrALAZINE 25 MG TAB PO SCH (07:55)
[2018-12-27] MEDS: Carvedilol 25 MG TAB PO SCH (07:56)
[2018-12-27] MEDS: NIFEdipine XL 60 MG TAB PO SCH (07:56)
[2018-12-27] MEDS: Atorvastatin Calcium 40 MG TAB PO SCH (07:57)
[2018-12-27] MEDS: Lubiprostone 24 MCG CAP PO SCH (07:57)
[2018-12-27] MEDS: cefTRIAXone\\ROCEPHIN 1 GM in Sodium Chloride 0.9% 100 ML IVPB SCH (07:58)
[2018-12-27] MEDS: Gabapentin 300 MG CAP PO SCH (07:58)
[2018-12-27] MEDS: Saccharomyces boulardii 250 MG CAP PO SCH (07:58)
[2018-12-27] MEDS: FLUoxetine HCl 20 MG CAP PO SCH (07:58)
[2018-12-27] MEDS: Doxepin HCl 25 MG CAP PO SCH (07:59)
[2018-12-27] MEDS: Fluticasone Propionate Nasal Spray 16 gm Bottle NASAL SCH (08:00)
[2018-12-27] MEDS ORDERED: Losartan 25 MG TAB PO SCH (09:00)
[2018-12-27] MEDS ORDERED: cloNIDine 0.1 MG TAB PO SCH (09:00)
[2018-12-27] MEDS: Sodium Chloride 0.9% 1,000 ML IV SCH ×2 (10:16→10:17)
[2018-12-27 12:27] VITALS: BP 133/84
--- NOTE | 2018-12-28 07:17 | DIS ---
DATE OF ADMISSION: 12/21/2018 DATE OF DISCHARGE: 12/27/2018 DISCHARGE DISPOSITION: Home. PRIMARY DISCHARGE DIAGNOSES: Left-sided pyelonephritis with sepsis and acute kidney injury with history of chronic kidney disease, stage 3. SECONDARY DISCHARGE DIAGNOSES: History of chronic diastolic heart failure; obesity; bipolar disorder; coronary artery disease; diabetes mellitus, type 2; and hypertension. PROCEDURES DONE DURING HOSPITALIZATION: Abdominal and pelvic CAT scan done on the day of admission showed extensive left perinephric stranding without obstructing stone suggesting pyelonephritis, reactive left retroperitoneal periaortic lymph nodes. Ultrasound venous Doppler of both lower extremities done showed no evidence of DVT. Urine cultures grew Klebsiella, sensitive to all antibiotics. Blood cultures x2, no growth. Had a white count of 13 on the day of admission with discharge numbers of 5.8, H and H 11 and 35, platelet count 401, MCV 92. Discharge BUN and creatinine are 10 and 1.3. Admitting BUN and creatinine were 28 and 2.4. DISCHARGE MEDICATIONS: 1. Ciprofloxacin 250 mg p.o. twice daily for 7 days. 2. Seroquel 200 mg p.o. at bedtime. 3. Procardia XL 60 mg p.o. daily. 4. Clonidine 0.1 mg p.o. twice daily. 5. Levemir 10 units subcutaneously at bedtime. 6. Cozaar 50 mg p.o. daily. 7. Hydralazine 100 mg p.o. 3 times daily. 8. Amitiza 24 mcg p.o. twice daily. 9. Gabapentin 300 mg p.o. twice daily. 10. Lasix 20 mg p.o. daily. 11. Fluoxetine 60 mg p.o. daily. 12. Doxepin 100 mg p.o. daily. 13. Dexilant 30 mg p.o. daily. 14. Coreg 25 mg p.o. twice daily. 15. Atorvastatin 40 mg p.o. daily. ALLERGIES: NO KNOWN DRUG ALLERGIES. DISCHARGE PLAN: The patient is to follow up with Dr. Groves on 02/08/2019, at 08:45 a.m. She needs to follow up with Dr. Crys Andrade in 1 week. BRIEF COURSE DURING HOSPITALIZATION: The patient initially got admitted with complaints of being sick for nearly 3 to 4 days prior to arrival. She had suprapubic pain with burning urination and discomfort. She also developed a temperature of 103.1 and elevated white count on arrival. The patient was admitted to medical floor for sepsis, acute kidney injury, and pyelonephritis. She was on broad-spectrum IV antibiotics. This has been switched over to ciprofloxacin based on culture results. The patient complained of right lower extremity pain, and ultrasound venous Doppler done showed no evidence of DVT. She has responded well to above measures. During the course of her stay, the patient also developed gross hematuria, which has completely resolved in the last 48 hours. She needs to continue her antibiotics for a total of 7 days. Her ciprofloxacin dose has been based on her renal function. She is hemodynamically stable, ambulating in the room prior to discharge. Please note, I have seen and examined the patient on the day of discharge. Job ID: [id number]
== END 2018-12-27 11:20 | disposition home or self-care (01) | DRG 872 ==
LOC: ERS 18:44 → T4-A 22:38
PROVIDERS: ADMIT Hospitalist; ATTEND Hospitalist
DX: A41.59 Other Gram-negative sepsis (principal); K50.90 Crohn's disease, unspecified, without complications; N10 Acute pyelonephritis; N17.9 Acute kidney failure, unspecified; M86.9 Osteomyelitis, unspecified; N30.01 Acute cystitis with hematuria; R65.20 Severe sepsis without septic shock; K21.9 Gastro-esophageal reflux disease without esophagitis; J44.9 Chronic obstructive pulmonary disease, unspecified; F41.9 Anxiety disorder, unspecified; F31.9 Bipolar disorder, unspecified; F17.210 Nicotine dependence, cigarettes, uncomplicated; I12.9 Hypertensive chronic kidney disease with stage 1 through stage 4 chronic kidney disease, or unspecified chronic kidney disease; E11.22 Type 2 diabetes mellitus with diabetic chronic kidney disease; G47.33 Obstructive sleep apnea (adult) (pediatric); N18.3 Chronic kidney disease, stage 3 (moderate); G89.29 Other chronic pain; M54.5 Low back pain; E66.9 Obesity, unspecified; I25.10 Atherosclerotic heart disease of native coronary artery without angina pectoris; K59.00 Constipation, unspecified; M79.661 Pain in right lower leg; E78.5 Hyperlipidemia, unspecified; Z68.34 Body mass index [BMI] 34.0-34.9, adult; Z90.49 Acquired absence of other specified parts of digestive tract; Z79.4 Long term (current) use of insulin; Z79.899 Other long term (current) drug therapy; Z90.710 Acquired absence of both cervix and uterus; Z86.73 Personal history of transient ischemic attack (TIA), and cerebral infarction without residual deficits; Z23 Encounter for immunization
CPT/HCPCS: 36415; 36416; 74176; 80048; 80053; 81003; 81015; 83605; 85025; 87040; 87086; 87186; 90471; 90686; 93970; 94760; 96361; 96365; G0008; J0360; J0696; J1644; J1815; J2185; J2405; J3370; J3490; J7050; Q0162

== ENCOUNTER 2019-01-18 08:58 | Day surgery (SDC) | payer OTHER ==
[~2019-01-18 08:58] MED LIST changes: -INFLIXIMAB DYYB IVPB SCH; -SODIUM CHLORIDE 0.9% IVPB SCH; -Sodium Chloride 0.9% 20 ML ONE
[2019-01-18 09:57] VITALS: BP 176/96; TEMP 99
== END 2019-01-18 14:07 | disposition home or self-care (01) ==
LOC: ONC/OP 08:58
PROVIDERS: ATTEND Internal Medicine Gastroenterology
DX: K50.10 Crohn's disease of large intestine without complications (principal)
CPT/HCPCS: 96413; 96415; J7050; Q5103

== ENCOUNTER 2019-02-17 14:00 | Outpatient (CLI) | payer OTHER ==
--- NOTE | 2019-02-17 15:21 | MMO ---
Left Breast MAMMO Unilat Diag DDI LT+SRIKANTH. CLINICAL HISTORY: Patient is 63 years old and is seen for diagnostic exam. The patient has no family history of breast cancer. The patient has no personal history of cancer. VIEWS: The views performed were: left craniocaudal with tomosynthesis; left mediolateral oblique with tomosynthesis; and left mediolateral with tomosynthesis. FILMS COMPARED: The present examination has been compared to prior imaging studies performed at [facility] on 07/27/2018, and at [facility] on 05/18/2015, 06/24/2016 and 02/17/2019. This study has been interpreted with the assistance of computer-aided detection. MAMMOGRAM FINDINGS: The breast is heterogeneously dense, which could obscure a lesion on mammography. Finding 1: No mass is seen in the left breast. Ultrasound demonstrates dilated ducts, but no intraductal mass is appreciated. Finding 2: There are stable benign appearing calcifications seen in the left breast. IMPRESSION: FINDING 1: FINDING IN THE LEFT BREAST REQUIRES ADDITIONAL EVALUATION. BREAST MRI IS RECOMMENDED. FINDING 2: STABLE CALCIFICATIONS IN THE LEFT BREAST ARE BENIGN. THE RESULTS OF THIS EXAM WERE SENT TO THE PATIENT. ACR BI-RADS Category 0 - Incomplete: Need additional imaging evaluation. [facility] will notify the patient of the need for additional imaging services. MAMMOGRAPHY NOTE: 1. A negative mammogram report should not delay a biopsy if a dominant of clinically suspicious mass is present. 2. Approximately 10% to 15% of breast cancers are not detected by mammography. 3. Adenosis and dense breasts may obscure an underlying neoplasm. Reported by: BARB LOU MD Electonically Signed: [id number]
--- NOTE | 2019-02-17 15:23 | ULT ---
LIMITED ULTRASOUND LEFT BREAST: HISTORY: Bloody nipple discharge. FINDINGS: Limited sonographic evaluation was obtained in the retroareolar region left breast secondary to patie nt's nipple discharge. There are multiple tubular anechoic cystic-appearing structures present most compatible with multiple dilated ducts I the retroareolar region of the left breast. No obvious mass is seen within the ducts. No solid or cystic mass is seen in the retroareolar region of left breast. IMPRESSION: BIRADS category 0, incomplete: Needs additional imaging evaluation. MRI bilateral breasts is recomm ended for further evaluation of the patient's bloody nipple discharge. POS: OFF
== END 2019-02-17 14:01 | disposition home or self-care (01) ==
LOC: BICMAMMO 14:00
PROVIDERS: ATTEND Family Medicine
DX: N64.59 Other signs and symptoms in breast (principal)
CPT/HCPCS: G0279

== ENCOUNTER 2019-03-20 17:42 | Inpatient (IN) | payer OTHER ==
[2019-03-20 18:38] LABS: Bilirubin Negative (Negative); Blood, Urine Negative (Negative); Clarity Clear (Clear); Glucose, Urine (Dipstick) Normal (Negative); Leukocyte Negative Leu/uL (Negative); Nitrite Negative (Negative); Protein, Urine (Dipstick) Negative (Neg-Trace); Urobilinogen Normal mg/dL (Less than 2)
[2019-03-20 18:42] LABS: #Eosinphils 0.2 thou/uL (0.0-0.7); #Lymphocytes 2.1 thou/uL (1.20-3.40); #Monocytes 0.7 thou/uL (0.11-0.59); #Neutrophils 6.5 thou/uL (1.40-6.50); %Basophils 0.2 % (0.0-1.0); %Eosinophils 1.6 % (0.0-10.0); %Lymphocytes 22.5 % (21.0-51.0); %Monocytes 7.8 % (0.0-10.0); %Neutrophils 67.9 % (42.0-75.0); Hemoglobin 14.2 g/dL (12.0-16.0); Mean Corpuscular HGB CONC 33.1 g/dL (32.0-36.0); Mean Corpuscular Hemoglobin 29.7 pg (27.0-31.0); Mean Corpuscular Volume 89.7 fL (78.0-98.0); Mean Platelet Volume 8.1 fL (7.4-10.4); Platelet Count 318 thou/uL (130-400); RBC Distribution Width 15.6 % (11.5-14.5); Red Blood Cell (RBC) Count 4.79 mill/uL (4.20-5.40); White Blood Cell (WBC) Count 9.5 thou/uL (4.8-10.8)
[2019-03-20 19:02] LABS: ALT (SGPT) 11 U/L (8-55); AST (SGOT) 17 U/L (5-34); Albumin 3.6 g/dL (3.4-4.8); Alkaline Phosphatase 200 U/L (40-110); Anion Gap 22 mmol/L (10-20); BUN (Urea Nitrogen) 41 mg/dL (9.8-20.1); Bilirubin, Total 0.3 mg/dL (0.2-1.2); CK (CPK) 111 U/L (29-168); Calc. Creatinine Clearance 0 mL/min (70-130); Calcium 9.5 mg/dL (7.8-10.44); Carbon Dioxide 22 mmol/L (23-31); Chloride 103 mmol/L (98-107); Estimated GFR-MDRD 27; Globulin 4.3 g/dL (2.4-3.5); Glucose 107 mg/dL (80-115); Lipase 924 U/L (8-78); Potassium 3.8 mmol/L (3.5-5.1); Protein, Total 7.9 g/dL (6.0-8.3); Sodium 143 mmol/L (136-145)
--- NOTE | 2019-03-20 19:30 | RAD ---
PORTABLE CHEST 1 VIEW: Date: 03/20/2019 Time: 2000 hours HISTORY: Epigastric pain. FINDINGS: Comparison made with exam of 06/11/18. Right-sided Port-A-Cath remains in place. The heart size is borderline. The aorta is tortuous. The osei ngs are well expanded without lobar consolidation, pneumothoraces, or pleural effusions. IMPRESSION: No acute process. POS: JAMIR
--- NOTE | 2019-03-20 21:48 | CT ---
CT ABDOMEN AND PELVIS PERFORMED WITHOUT CONTRAST ENHANCEMENT: Date: 03/20/2019 HISTORY: Pancreatitis. COMPARISON: 12/21/18 study. FINDINGS: Lung bases are clear of any infiltrative process. There is some fatty change to the liver. The spleen is within normal limits. There is marked peripancreatic inflammatory change. There is no pseudocyst formation or evidence for abscess. The gallbladder has been removed. Right and left adrenal glands are normal in appearance. Hypodensities and hyperdensities involving celso th kidneys are noted. These are probably related to cysts, some of which are hemorrhagic. No signific ant periaortic or mesenteric nodes. Some of the left upper periaortic nodes are stable, probably all reactive. CT of pelvis was performed without contrast enhancement. No adenopathy, mass, or free fluid. IMPRESSION: Radiographic changes of marked pancreatitis. POS: DEVON
[2019-03-20] MEDS ORDERED: Ondansetron PF 4 MG/2 ML Vial ONE (22:09)
[2019-03-20] MEDS ORDERED: Fentanyl 100 MCG/2 ML VIAL ONE (22:09)
[2019-03-20] MEDS ORDERED: Labetalol HCl 100 MG/20 ML VIAL ONE (23:16)
[2019-03-20] MEDS ORDERED: cloNIDine 0.1 MG TAB ONE (23:16)
[2019-03-21 01:40] VITALS: BMI 37.3
[2019-03-21] MEDS ORDERED: Fentanyl 100 MCG/2 ML VIAL SLOW IVP PRN (01:40)
[2019-03-21] MEDS ORDERED: Ondansetron ODT 4 MG TAB SL PRN (01:41)
[2019-03-21] MEDS ORDERED: HYDROcodone/Acetaminophen 5/325 mg Tablet PO PRN ×2 (01:41)
[2019-03-21] MEDS ORDERED: Ondansetron PF 4 MG/2 ML Vial IVP PRN ×2 (01:41→08:33)
[2019-03-21] MEDS: Lactated Ringer's 1,000 ML IV SCH ×4 (02:02→20:26)
[2019-03-21 05:26] LABS: ALT (SGPT) 7 U/L (8-55); AST (SGOT) 16 U/L (5-34); Albumin 3.1 g/dL (3.4-4.8); Alkaline Phosphatase 186 U/L (40-110); Anion Gap 14 mmol/L (10-20); BUN (Urea Nitrogen) 38 mg/dL (9.8-20.1); Bilirubin, Total 0.4 mg/dL (0.2-1.2); Calc. Creatinine Clearance 44 mL/min (70-130); Calcium 8.9 mg/dL (7.8-10.44); Carbon Dioxide 25 mmol/L (23-31); Chloride 107 mmol/L (98-107); Estimated GFR-MDRD 33; Glucose 83 mg/dL (80-115); Potassium 3.6 mmol/L (3.5-5.1); Protein, Total 7.1 g/dL (6.0-8.3); Sodium 142 mmol/L (136-145)
[2019-03-21] MEDS: NIFEdipine XL 60 MG TAB PO SCH ×2 (07:48→20:30)
[2019-03-21] MEDS: cloNIDine 0.1 MG TAB PO SCH ×2 (07:49→20:27)
[2019-03-21] MEDS: Calcitriol 0.25 MCG CAP PO SCH ×2 (07:49→20:27)
[2019-03-21] MEDS: hydrALAZINE 25 MG TAB PO SCH ×3 (07:49→20:28)
[2019-03-21] MEDS ORDERED: cloNIDine 0.1 MG TAB PO PRN (08:33)
[2019-03-21] MEDS ORDERED: Acetaminophen 325 MG TAB PO PRN (08:33)
[2019-03-21] MEDS ORDERED: Acetaminophen/Codeine 30-300mg Tablet PO PRN (08:37)
[2019-03-21] MEDS ORDERED: Lactated Ringer's 1,000 ML IV SCH (08:45)
[2019-03-21] MEDS: Famotidine/PF 20 mg/2ml Vial SLOW IVP SCH ×2 (09:21→20:28)
[2019-03-21] MEDS: Enoxaparin Sodium 30 MG/0.3 ML SYRINGE SC SCH (09:23)
[2019-03-21] MEDS: Famotidine 20 MG TAB PO SCH ×2 (09:29→20:28)
--- NOTE | 2019-03-21 10:35 | HP ---
PRIMARY CARE PHYSICIAN: Dr. Andrade. CHIEF COMPLAINT: Abdominal discomfort. HISTORY OF PRESENT ILLNESS: The patient is a 63-year-old female with diabetes mellitus type 2, hypertension, and chronic kidney disease, presented to the emergency room with abdominal discomfort. Over the last 1 week, the patient has gradual worsening abdominal discomfort in the periumbilical area. She had nausea with 4 episodes of vomiting. Her pain got worse in the last 24 hours. She denies any fever or chills. No diarrhea, constipation, melena, hematochezia, or hematemesis reported. She recently recovered from upper respiratory tract infection and took doxycycline. She denies recent changes in her medications. The pain was moderate to severe in intensity, aggravated by food. In the emergency room, her initial vital signs showed temperature 98.8, respirations of 19, and pulse rate of 89 with a blood pressure of 182/116 with O2 saturation 99% on room air. CT scan of the abdomen and pelvis without contrast was consistent with marked peripancreatic inflammatory changes without any abscess or pseudocyst. She has history of cholecystectomy in the past. PAST MEDICAL HISTORY: 1. Diabetes mellitus, type 2. 2. Hypertension. 3. History of transient ischemic attack. 4. Bipolar disorder, followed by [facility]. 5. History of Crohn disease. 6. Migraines. 7. Chronic pain syndrome. 8. Peripheral vascular disease. 9. Obstructive sleep apnea, on CPAP. 10. Gastroesophageal reflux disease. 11. History of urinary retention. 12. Chronic diastolic heart failure. 13. Hyperlipidemia. 14. History of pancreatitis last year. The patient was evaluated by Dr. Mansfield. She was eventually transferred to Critical Care for encephalopathy. She was discharged from the hospital after 26 days. PAST SURGICAL HISTORY: 1. Cholecystectomy in 1997. 2. Hysterectomy with bilateral salpingo-oophorectomy. 3. History of blood transfusion. 4. Cardiac catheterization in 2011. 5. Cystoscopy. 6. Appendectomy. 7. EGD. 8. Small bowel resection by Dr. Mora. 9. Right hand middle finger surgery. 10. Lithotripsy. 11. Status post adhesiolysis. ALLERGIES: THE PATIENT IS ALLERGIC TO MORPHINE. CURRENT HOME MEDICATIONS: The patient is unable to recall any of her home medications. We will try to verify with her family when they arrive. FAMILY HISTORY: Positive for diabetes and heart disease. SOCIAL HISTORY: The patient currently lives at home with her . She continues to smoke less than half pack a day. She denies alcohol or drug use. REVIEW OF SYSTEMS: All other review of systems was reviewed and was found negative. PHYSICAL EXAMINATION: VITAL SIGNS: As discussed above. GENERAL: A 63-year-old female, in no significant distress. Pain controlled with fentanyl. HEENT: Head, atraumatic and normocephalic. Sclerae anicteric. Dry mucous membranes. No oral lesion. NECK: Supple. No JVD appreciated. No carotid bruit. LUNGS: Diminished air entry at bilateral bases. HEART: S1-S2 present. Regular rate and rhythm. No rubs or gallops. ABDOMEN: Tender mainly in the periumbilical area. No guarding or rigidity. There was voluntary guarding in the periumbilical area. Bowel sounds were present. EXTREMITIES: No edema or calf tenderness. NEUROLOGY: Grossly nonfocal. Moves all 4 extremities. The patient has chronic neuropathy in bilateral lower extremity, which is unchanged. PSYCHIATRIC: Alert and awake. SKIN: Warm and dry. LYMPH NODES: No palpable lymph nodes in the neck. PERIPHERAL VASCULAR: Radial pulses palpable bilaterally. MUSCULOSKELETAL: No joint, swelling, or tenderness. LABORATORY FINDINGS: WBC 9.5 with hemoglobin 14.2, hematocrit 43, and platelet of 318. Chemistry showed sodium 143, potassium 3.8, chloride 103, bicarb 22, BUN of 41, and creatinine 2.19 with anion gap of 22. Alkaline phosphatase 200. Lipase was 924 and triglyceride 230. IMAGING STUDIES: CT scan of the abdomen by my review as discussed above. Chest x-ray by my review was negative for acute findings. IMPRESSION: 1. Acute pancreatitis of unclear etiology. 2. History of acute pancreatitis in March 2018 with complicated hospital course. 3. Acute kidney injury on chronic kidney disease stage 3, probably secondary to dehydration. 4. Obesity with a BMI of 37.3. 5. Diabetes mellitus type 2. 6. Hypertension with hypertensive urgency. 7. Obstructive sleep apnea with a history of noncompliance with CPAP machine. 8. History of Crohn disease. 9. Gastroesophageal reflux disease. 10. History of renal calculi with stent placement. 11. Chronic diastolic heart failure. 12. Peripheral vascular disease. 13. Bipolar disorder. PLAN: 1. The patient will be monitored on the medical floor. Home medications will be verified. We will resume her antihypertensives based on last discharge summary. We will hold losartan due to acute kidney injury. Her last blood sugar was 83. We will start her on insulin sliding scale. We will keep her n.p.o. except for ice chips. Consult Gastroenterology due to recurrent pancreatitis. Pain controlled. 2. Resume home CPAP. 3. Plan of care was discussed with the patient in detail. She stated understanding. Job ID: [id number]
[2019-03-21] MEDS: Labetalol 100 MG TAB PO SCH ×2 (10:49→20:29)
[2019-03-21] MEDS ORDERED: Aripiprazole 15 MG TAB PO SCH (13:30)
[2019-03-21] MEDS: HYDROcodone/Acetaminophen 5/325 mg Tablet PO PRN (14:13)
[2019-03-21] MEDS: Gabapentin 300 MG CAP PO SCH ×2 (14:14→20:28)
[2019-03-21] MEDS: Fentanyl 100 MCG/2 ML VIAL SLOW IVP PRN (14:20)
[2019-03-21] MEDS ORDERED: Dextrose 50% Abboject 50 ML SYRINGE SLOW IVP PRN (19:47)
[2019-03-21] MEDS ORDERED: Dextrose 5% in Water 1,000 ML IV PRN (19:47)
[2019-03-21] MEDS ORDERED: Dextrose 50 % In Water 50 ML SYRINGE IV SCH (20:00)
[2019-03-21] MEDS: Mirtazapine 15 MG TAB PO SCH (20:29)
[2019-03-21] MEDS: OLANZapine 5 MG TAB PO SCH (20:31)
[2019-03-21] MEDS ORDERED: Dextrose 5% in Water 1,000 ML IV SCH (22:30)
[2019-03-21 23:06] LABS: Anion Gap 10 mmol/L (10-20); BUN (Urea Nitrogen) 31 mg/dL (9.8-20.1); Calc. Creatinine Clearance 50 mL/min (70-130); Calcium 8.7 mg/dL (7.8-10.44); Carbon Dioxide 28 mmol/L (23-31); Chloride 107 mmol/L (98-107); Estimated GFR-MDRD 38; Glucose 81 mg/dL (80-115); Potassium 3.6 mmol/L (3.5-5.1); Sodium 141 mmol/L (136-145)
[2019-03-22] MEDS: Levothyroxine Sodium 100 MCG TAB PO SCH (05:41)
[2019-03-22] MEDS: HYDROcodone/Acetaminophen 5/325 mg Tablet PO PRN ×2 (06:30→14:37)
[2019-03-22 06:41] LABS: #Eosinphils 0.1 thou/uL (0.0-0.7); #Monocytes 0.9 thou/uL (0.11-0.59); #Neutrophils 4.5 thou/uL (1.40-6.50); %Basophils 0.2 % (0.0-1.0); %Eosinophils 1.8 % (0.0-10.0); %Lymphocytes 26.1 % (21.0-51.0); %Monocytes 11.4 % (0.0-10.0); %Neutrophils 60.4 % (42.0-75.0); Hemoglobin 12.2 g/dL (12.0-16.0); Mean Corpuscular HGB CONC 33.2 g/dL (32.0-36.0); Mean Corpuscular Hemoglobin 30.2 pg (27.0-31.0); Mean Corpuscular Volume 90.9 fL (78.0-98.0); Mean Platelet Volume 7.7 fL (7.4-10.4); Platelet Count 259 thou/uL (130-400); RBC Distribution Width 15.4 % (11.5-14.5); Red Blood Cell (RBC) Count 4.04 mill/uL (4.20-5.40); White Blood Cell (WBC) Count 7.5 thou/uL (4.8-10.8)
[2019-03-22] MEDS ORDERED: Lactated Ringer's 1,000 ML IV SCH (06:45)
[2019-03-22 06:59] LABS: ALT (SGPT) Less than 7 U/L (8-55); AST (SGOT) 15 U/L (5-34); Albumin 2.9 g/dL (3.4-4.8); Alkaline Phosphatase 163 U/L (40-110); Anion Gap 11 mmol/L (10-20); BUN (Urea Nitrogen) 26 mg/dL (9.8-20.1); Bilirubin, Total 0.4 mg/dL (0.2-1.2); Calc. Creatinine Clearance 51 mL/min (70-130); Calcium 8.7 mg/dL (7.8-10.44); Carbon Dioxide 29 mmol/L (23-31); Chloride 105 mmol/L (98-107); Estimated GFR-MDRD 38; Globulin 3.9 g/dL (2.4-3.5); Glucose 103 mg/dL (80-115); Lipase 420 U/L (8-78); Potassium 3.6 mmol/L (3.5-5.1); Protein, Total 6.8 g/dL (6.0-8.3); Sodium 141 mmol/L (136-145)
--- NOTE | 2019-03-22 07:45 | CON ---
DATE OF CONSULTATION: REASON FOR CONSULTATION: Pancreatitis. HISTORY OF PRESENT ILLNESS: Ms. Mosqueda is a pleasant 63-year-old female, who is admitted to the hospital last evening with a diagnosis of pancreatitis on presentation, pulse of 99, blood pressure of 151/99, she is afebrile. She reports that she had pain with nausea starting on Thursday, it progressively got worse. She had a previous episode of pancreatitis about a year ago in 03/2018. It was very similar. She ultimately came to the emergency room. She states she started no new pain medicines or no new medications, but was on doxycycline for 10 days, which ended late last week. This was for bronchitis since she was given in urgent care. Interestingly, she was given doxycycline last year right before her pancreatitis. The patient also has a history of Crohn disease and denies any recent problems with nausea, vomiting, or diarrhea or bleeding with this. This has been in remission endoscopically in 2016, but she was actually here for partial obstruction, for which she had surgery in 10/2018. In her episode of pancreatitis last year, she had some partial obstruction symptoms as well. It is unclear if that is related to her Crohn's or to an ileus or to the pancreatitis. Last year, she also had 2 hospitalizations related to nephrolithiasis and pyelonephritis in 05/2018 and in 12/2018. Presently, the patient denies any vomiting. She states her pain is about the same she came in. She is voiding and making urine. She denies hematuria, dysuria, frequency, or urgency. Her last normal bowel movement was on Thursday. She does not have much of an appetite. She denies drinking alcohol. PAST MEDICAL HISTORY: 1. Hypertension. 2. Diabetes, type 2. 3. Sleep apnea. 4. Crohn disease with previous resection of small bowel and surgery for lysis of adhesions, most recently being last year. 5. Reflux. 6. Mild COPD. 7. Prior pancreatitis. 8. History of psychiatric disorder with bipolar and anxiety disorder. 9. TIAs. 10. Migraines. 11. Peripheral vascular disease. 12. Diastolic heart failure. PAST SURGICAL HISTORY: Abdominal surgeries include small bowel obstruction, appendectomy, cholecystectomy, and hysterectomy. She has had stents for nephrolithiasis. She also has a Port-A-Cath in the right subclavian. Right hand middle finger surgery in the past. SOCIAL HISTORY: The patient denies any alcohol use. Does not use drugs. Does smoke occasionally a half pack per day. ALLERGIES: MORPHINE, MAKE HER VERY CONFUSED AND COMBATIVE. MEDICATIONS: Current medications at home: The patient does not have a list, but the nurses have acquired a list. 1. Tylenol. 2. Rocaltrol. 3. Catapres. 4. Lovenox. 5. Pepcid. 6. Hydralazine. 7. Clonidine. 8. Torsemide. 9. Olanzapine. 10. Nifedipine. 11. Mirtazapine. 12. Amitiza. 13. Cozaar. 14. Synthroid. 15. Labetalol. 16. Levemir. 17. Gabapentin. 18. Doxepin. 19. Calcitriol. 20. Rexparezole. 21. She is on TNF-biosimilars for Crohn disease. Present medications here in the hospital: 1. Rocaltrol. 2. Catapres. 3. Lovenox. 4. Pepcid. 5. Fentanyl 25 q.6 p.r.n. 6. Hydrocodone p.r.n. 7. . 8. Zofran. 9. Senokot. PHYSICAL EXAMINATION: VITAL SIGNS: Blood pressure 164/102, pulse 93, and temperature 98. GENERAL: The patient is resting in bed. Her son and at the bedside. She is still having some pain. States she is about the same as when she came in. She is alert and oriented to person, place, and time. HEENT: Oropharynx without lesions, slightly dry. NECK: Supple without any lymphadenopathy. LUNGS: Clear. HEART: Regular without clicks or murmurs. ABDOMEN: Protuberant and mildly tender in the epigastrium. There is no rebound. There is no guarding. Bowel sounds are actually positive. EXTREMITIES: With no clubbing, cyanosis, or edema. There is no tenting. Skin turgor is good. IMAGING STUDIES: CT scan was reviewed by myself, it is noncontrast study, showed inflammatory changes in the region of the pancreas and upper abdomen. There is no overt pseudocyst. The radiologist concerned there could be some hemorrhagic cysts in the kidneys. LABORATORY DATA: White count was 9.5 yesterday, hemoglobin 14.2, and platelet count 318. INR was not checked. Sodium 142, potassium 3.6, chloride 107, bicarb 25, BUN and creatinine are 38 and 1.87 as of this morning and yesterday they were 41 and 2.19. Liver function tests are normal, alkaline phosphatase was 200 yesterday, 186 today. Albumin 3.1, globulin 4, and protein 7.3. Triglycerides 280. Lipase yesterday was 924, was not checked yet today. ASSESSMENT: 1. Ms. Mosqueda is a 63-year-old female, who presented with acute pancreatitis, confirmed by CAT scan. Lipase was in the 400s. Her BUN and creatinine have come down in the last 24 hours. She is afebrile. She does have some bowel sounds, which is encouraging. The etiology of pancreatitis is unclear. She had doxycycline last week for bronchitis. She reports that she had doxycycline last year before her episode of pancreatitis. Her alkaline phosphatase is up mildly, but bilirubin, AST, and ALT are normal, making choledocholithiasis less likely in the differential diagnosis, though would include this. 2. History of Crohn disease with reported endoscopic remission in 2017. She has had some surgery recently this year for urolithiasis. Presently, this does not seem to be an issue. RECOMMENDATIONS: 1. Would increase fluids to 125 mL an hour. 2. We will continue n.p.o. status for pain control. Would avoid morphine as this made her very delusional last admission when she noted in the ICU. 3. Hopefully she will continue to improve before discharge, she should have an MRCP to evaluate for possible choledocholithiasis. 4. I do not think she should receive doxycycline ever again, and this should be added to her list of allergies. 5. We will continue treatment of her Crohn disease. I think here she is receiving . I will follow along with you. Job ID: [id number]
[2019-03-22] MEDS: Fentanyl 100 MCG/2 ML VIAL SLOW IVP PRN ×2 (07:55→19:32)
[2019-03-22] MEDS: NIFEdipine XL 60 MG TAB PO SCH (07:58)
[2019-03-22] MEDS: hydrALAZINE 25 MG TAB PO SCH ×2 (07:59→14:30)
[2019-03-22] MEDS: Calcitriol 0.25 MCG CAP PO SCH ×2 (08:00→20:30)
[2019-03-22] MEDS: Famotidine 20 MG TAB PO SCH ×2 (08:01→20:31)
[2019-03-22] MEDS: Labetalol 100 MG TAB PO SCH ×3 (08:02→20:32)
[2019-03-22] MEDS: cloNIDine 0.2 MG TAB PO SCH ×3 (08:02→20:31)
[2019-03-22] MEDS: Aripiprazole 15 MG TAB PO SCH (08:05)
[2019-03-22] MEDS: Enoxaparin Sodium 30 MG/0.3 ML SYRINGE SC SCH (08:06)
[2019-03-22] MEDS: Famotidine/PF 20 mg/2ml Vial SLOW IVP SCH ×2 (08:43→20:31)
[2019-03-22] MEDS ORDERED: Gabapentin 300 MG CAP PO SCH (09:00)
[2019-03-22] MEDS: D5 1/2 NS w/10 mEq KCl 1,000 ML/1,000 ML BAG IV SCH ×2 (12:27→20:30)
[2019-03-22] MEDS: Gabapentin 300 MG CAP PO SCH ×2 (14:25→20:31)
--- NOTE | 2019-03-22 19:23 | PRG ---
DATE OF SERVICE: 03/22/2019 SUBJECTIVE: Ms. Mosqueda is feeling better. She is tolerating liquids. She has not had a bowel movement. She has nausea, but has not thrown up. OBJECTIVE: VITAL SIGNS: Temperature is 98 and blood pressure 138/88. ABDOMEN: Soft and protuberant. Bowel sounds are quiescent. There is no rebound. There is no guarding. NEUROLOGIC: She is alert and oriented. LABORATORY DATA: White count 7.5, hemoglobin 12.2, down from 14.2, platelet count 259. BUN and creatinine are 26 and 1.64, down from 31 and 1.65 yesterday. Electrolytes were otherwise normal. AST and ALT are 15 and 7. Alkaline phosphatase 163, down from 200 on admission. Lipase is 420, down from 924 on admission. ASSESSMENT: 1. Pancreatitis, unclear etiology, improving. She has received one dose of oral narcotic today. 2. History of Crohn disease with no evidence of active Crohn's. 3. Hypertension. 4. Diabetes with low blood sugars per the nurse. 5. Bipolar disorder, well controlled at this time with medical therapy. RECOMMENDATIONS: 1. We will decrease IV fluids to 100 mL an hour. 2. Agree with liquid diet. 3. Monitor lipase and renal function and LFTs. 4. Start the etiology of her pancreatitis is unclear. It would be reasonable for her to have an MRCP this admission when she improves; although, it may be doxycycline as the cause, although this is not a typical medicine which causes pancreatitis, as she was given before this admission and before her admission last year when she had pancreatitis. We will follow along with you. Job ID: [id number]
[2019-03-22] MEDS: Mirtazapine 15 MG TAB PO SCH (20:32)
[2019-03-22] MEDS: NIFEdipine XL 30 MG TAB PO SCH (20:33)
[2019-03-22] MEDS: OLANZapine 5 MG TAB PO SCH (20:33)
--- NOTE | 2019-03-22 22:23 | PDOC.HOSPP ---
- Subjective Encounter Date: 03/22/19 Encounter Time: 08:30 Subjective: Patient seen and examined for acute pancreatitis. Abd pain improving. No fever or chills. No new complaints. No overnight events - Objective Vital Signs & Weight: Vital Signs (12 hours) Temp Pulse Resp BP BP BP Pulse Ox 03/22/19 20:33 93 163/95 H 03/22/19 20:32 93 163/95 H 03/22/19 20:31 163/95 H 03/22/19 20:00 96 03/22/19 19:30 98.2 F 93 18 163/95 H 96 03/22/19 16:48 98.6 F 88 20 139/88 98 03/22/19 14:30 87 127/86 03/22/19 14:27 127/86 03/22/19 14:26 87 127/86 03/22/19 11:03 98.4 F 87 20 137/96 H 100 Weight Weight 204 lb 3.2 oz I&O: 03/21/19 03/22/19 03/23/19 06:59 06:59 06:59 Intake Total 1000 1050 Balance 1000 1050 Result Diagrams: 03/22/19 06:27 03/22/19 06:27 Additional Labs: Accuchecks 03/22/19 03/22/19 03/22/19 19:55 16:45 11:09 POC Glucose 157 H 86 70 03/22/19 03/21/19 05:27 22:11 POC Glucose 133 H 84 Laboratory Tests 03/22/19 06:27 Amylase 223.0 H Lipase 420 H Radiology Reviewed by me: Yes (CT abd - reviewed) Hospitalist ROS - Review of Systems Respiratory: denies: cough, dry, shortness of breath, hemoptysis, SOB with excertion, pleuritic pain, sputum, wheezing, other Cardiovascular: denies: chest pain, palpitations, orthopnea, paroxysmal noc. dyspnea, edema, light headedness, other - Medication Medications: Active Medications Generic Name Dose Route Start Last Admin Trade Name Freq PRN Reason Stop Dose Admin Hydrocodone Bitart/Acetaminophen 1 tab 03/21/19 08:53 03/22/19 14:37 [place] 5/325 PO 1 tab Q6H PRN Administration Moderate Pain (4-6) Aripiprazole 15 mg 03/22/19 09:00 03/22/19 08:05 Abilify PO 15 mg DAILY JOSSY Administration Calcitriol 0.5 mcg 03/21/19 09:00 03/22/19 20:30 Rocaltrol PO 0.5 mcg BID JOSSY Administration Clonidine 0.2 mg 03/22/19 09:00 03/22/19 20:31 Catapres PO 0.2 mg TID JOSSY Administration Dextrose/Water 25 gm 03/21/19 19:47 03/22/19 12:18 Dextrose 50% SLOW IVP 25 gm PRN PRN Administration Hypoglycemia Enoxaparin Sodium 30 mg 03/21/19 09:00 03/22/19 08:06 Lovenox SC 30 mg 0900 JOSSY Administration Famotidine 20 mg 03/21/19 09:00 03/22/19 20:31 Pepcid PO 20 mg BID JOSSY Administration Fentanyl 25 mcg 03/21/19 08:53 03/22/19 19:32 Sublimaze SLOW IVP 25 mcg Q6H PRN Administration Severe Pain (7-10) Gabapentin 300 mg 03/22/19 15:00 03/22/19 20:31 Neurontin PO 300 mg TID JOSSY Administration Potassium Chloride/Dextrose/Sod Cl 1,000 ml in 1,000 mls @ 125 mls/hr 11:45 03/22/19 20:30 D5 1/2 Ns W/10 Meq Kcl IV 1,000 mls .Q8H JOSSY Administration Labetalol HCl 100 mg 03/22/19 09:00 03/22/19 20:32 Normodyne PO 100 mg TID JOSSY Administration Levothyroxine Sodium 100 mcg 03/22/19 06:00 03/22/19 05:41 Synthroid PO 100 mcg 0600 JOSSY Administration Mirtazapine 7.5 mg 03/21/19 21:00 03/22/19 20:32 Remeron PO 7.5 mg HS JOSSY Administration Nifedipine 30 mg 03/22/19 21:00 03/22/19 20:33 Procardia Xl PO 30 mg BID JOSSY Administration Olanzapine 5 mg 03/21/19 21:00 03/22/19 20:33 Zyprexa PO 5 mg HS JOSSY Administration - Exam General Appearance: NAD Heart: RRR, no gallops, no rubs, normal peripheral pulses Respiratory: CTAB, no rales, no ronchi, normal chest expansion Gastrointestinal: soft, non-distended, normal bowel sounds, tender to palpation Extremities: no cyanosis, no clubbing Psychiatric: normal affect, A&O x 3 Hosp A/P - Plan DVT proph w/SCDs Acute pancreatitis. History of acute pancreatitis in March 2018 with complicated hospital course. Acute kidney injury on chronic kidney disease stage 3, Obesity with a BMI of 37.3. Diabetes mellitus type 2. Hypertension Hypertensive urgency on admission. Obstructive sleep apnea History of Crohn disease. Gastroesophageal reflux disease. History of renal calculi with stent placement. Chronic diastolic heart failure. Peripheral vascular disease. Bipolar disorder. PLAN: Cont NPO Cont IVF Pain control Reduce Clonidine/Labetalol dose Hold Hydralazine AM labs Cont other meds as above
[2019-03-23] MEDS: HYDROcodone/Acetaminophen 5/325 mg Tablet PO PRN ×3 (02:59→16:27)
[2019-03-23] MEDS: D5 1/2 NS w/10 mEq KCl 1,000 ML/1,000 ML BAG IV SCH ×3 (04:11→16:29)
[2019-03-23] MEDS: Levothyroxine Sodium 100 MCG TAB PO SCH (05:25)
[2019-03-23] MEDS: Fentanyl 100 MCG/2 ML VIAL SLOW IVP PRN ×3 (05:25→20:27)
[2019-03-23 05:52] LABS: #Eosinphils 0.2 thou/uL (0.0-0.7); #Lymphocytes 1.8 thou/uL (1.20-3.40); #Monocytes 0.6 thou/uL (0.11-0.59); #Neutrophils 3.2 thou/uL (1.40-6.50); %Basophils 0.5 % (0.0-1.0); %Lymphocytes 31.3 % (21.0-51.0); %Monocytes 9.7 % (0.0-10.0); %Neutrophils 55.5 % (42.0-75.0); Hemoglobin 11.9 g/dL (12.0-16.0); Mean Corpuscular HGB CONC 32.3 g/dL (32.0-36.0); Mean Corpuscular Hemoglobin 29.3 pg (27.0-31.0); Mean Corpuscular Volume 90.8 fL (78.0-98.0); Mean Platelet Volume 8.4 fL (7.4-10.4); Platelet Count 262 thou/uL (130-400); RBC Distribution Width 15.3 % (11.5-14.5); Red Blood Cell (RBC) Count 4.07 mill/uL (4.20-5.40); White Blood Cell (WBC) Count 5.7 thou/uL (4.8-10.8)
[2019-03-23 06:05] LABS: ALT (SGPT) 7 U/L (8-55); AST (SGOT) 14 U/L (5-34); Albumin 3.1 g/dL (3.4-4.8); Alkaline Phosphatase 150 U/L (40-110); Anion Gap 11 mmol/L (10-20); BUN (Urea Nitrogen) 17 mg/dL (9.8-20.1); Bilirubin, Total 0.2 mg/dL (0.2-1.2); Calc. Creatinine Clearance 55 mL/min (70-130); Calcium 8.9 mg/dL (7.8-10.44); Carbon Dioxide 24 mmol/L (23-31); Chloride 107 mmol/L (98-107); Estimated GFR-MDRD 42; Globulin 3.9 g/dL (2.4-3.5); Glucose 146 mg/dL (80-115); Lipase 212 U/L (8-78); Potassium 3.7 mmol/L (3.5-5.1); Sodium 138 mmol/L (136-145)
[2019-03-23] MEDS: Aripiprazole 15 MG TAB PO SCH (08:09)
[2019-03-23] MEDS: Labetalol 100 MG TAB PO SCH ×3 (08:09→20:30)
[2019-03-23] MEDS: NIFEdipine XL 30 MG TAB PO SCH ×2 (08:10→20:31)
[2019-03-23] MEDS: Calcitriol 0.25 MCG CAP PO SCH ×2 (08:10→20:29)
[2019-03-23] MEDS: Famotidine 20 MG TAB PO SCH ×2 (08:10→20:30)
[2019-03-23] MEDS: Gabapentin 300 MG CAP PO SCH ×3 (08:10→20:30)
[2019-03-23] MEDS: cloNIDine 0.2 MG TAB PO SCH ×3 (08:11→20:29)
[2019-03-23] MEDS: Enoxaparin Sodium 30 MG/0.3 ML SYRINGE SC SCH (08:15)
--- NOTE | 2019-03-23 20:01 | PDOC.HOSPP ---
- Subjective Encounter Date: 03/23/19 Encounter Time: 19:00 Subjective: Patient seen and examined for Acute Pancreatitis. Abd pain dann after eating. No nausea. No new complaints. No overnight events - Objective Vital Signs & Weight: Vital Signs (12 hours) Temp Pulse Resp BP BP Pulse Ox 03/23/19 19:30 96 03/23/19 19:15 97.7 F 98 18 157/96 H 96 03/23/19 16:17 92 165/95 H 03/23/19 08:31 97.2 F L 92 20 124/84 97 03/23/19 08:11 150/99 H 03/23/19 08:10 93 150/99 H 03/23/19 08:09 93 150/99 H 03/23/19 08:00 98 Weight Weight 204 lb 3.2 oz I&O: 03/22/19 03/23/19 03/24/19 06:59 06:59 06:59 Intake Total 1050 2115 1500 Balance 1050 2115 1500 Result Diagrams: 03/23/19 05:06 03/23/19 05:06 Additional Labs: Accuchecks 03/23/19 03/23/19 03/23/19 16:32 12:12 04:47 POC Glucose 170 H 118 H 191 H 03/22/19 19:55 POC Glucose 157 H Hospitalist ROS - Review of Systems Respiratory: denies: cough, dry, shortness of breath, hemoptysis, SOB with excertion, pleuritic pain, sputum, wheezing, other Cardiovascular: denies: chest pain, palpitations, orthopnea, paroxysmal noc. dyspnea, edema, light headedness, other - Medication Medications: Active Medications Generic Name Dose Route Start Last Admin Trade Name Freq PRN Reason Stop Dose Admin Hydrocodone Bitart/Acetaminophen 1 tab 03/21/19 08:53 03/23/19 16:27 [place] 5/325 PO 1 tab Q6H PRN Administration Moderate Pain (4-6) Aripiprazole 15 mg 03/22/19 09:00 03/23/19 08:09 Abilify PO 15 mg DAILY JOSSY Administration Calcitriol 0.5 mcg 03/21/19 09:00 03/23/19 08:10 Rocaltrol PO 0.5 mcg BID JOSSY Administration Clonidine 0.2 mg 03/22/19 09:00 03/23/19 16:17 Catapres PO 0.2 mg TID JOSSY Administration Dextrose/Water 25 gm 03/21/19 19:47 03/22/19 12:18 Dextrose 50% SLOW IVP 25 gm PRN PRN Administration Hypoglycemia Enoxaparin Sodium 30 mg 03/21/19 09:00 03/23/19 08:15 Lovenox SC 30 mg 0900 JOSSY Administration Famotidine 20 mg 03/21/19 09:00 03/23/19 08:10 Pepcid PO 20 mg BID JOSSY Administration Fentanyl 25 mcg 03/21/19 08:53 03/23/19 12:50 Sublimaze SLOW IVP 25 mcg Q6H PRN Administration Severe Pain (7-10) Gabapentin 300 mg 03/22/19 15:00 03/23/19 16:17 Neurontin PO 300 mg TID JOSSY Administration Potassium Chloride/Dextrose/Sod Cl 1,000 ml in 1,000 mls @ 100 mls/hr 07:09 03/23/19 16:29 D5 1/2 Ns W/10 Meq Kcl IV 1,000 mls .Q10H JOSSY Administration Labetalol HCl 100 mg 03/22/19 09:00 03/23/19 16:17 Normodyne PO Not Given TID JOSSY Levothyroxine Sodium 100 mcg 03/22/19 06:00 03/23/19 05:25 Synthroid PO 100 mcg 0600 JOSSY Administration Mirtazapine 7.5 mg 03/21/19 21:00 03/22/19 20:32 Remeron PO 7.5 mg HS JOSSY Administration Nifedipine 30 mg 03/22/19 21:00 03/23/19 08:10 Procardia Xl PO 30 mg BID JOSSY Administration Olanzapine 5 mg 03/21/19 21:00 03/22/19 20:33 Zyprexa PO 5 mg HS JOSSY Administration Ondansetron HCl 4 mg 03/21/19 08:33 03/23/19 08:03 Zofran IVP 4 mg Q6H PRN Administration Nausea/Vomiting - Exam General Appearance: NAD Heart: RRR, no gallops Respiratory: CTAB, no wheezes, no rales Gastrointestinal: soft, no guarding, no rigidity, tender to palpation (in epigastric area) Extremities: no cyanosis Neurological: no new deficit Hosp A/P - Plan DVT proph w/lovenox, DVT proph w/SCDs Acute pancreatitis. MOOK on CKD 3 Obesity with a BMI of 37.3. Diabetes mellitus type 2. Hypertension Hypertensive urgency on admission. Obstructive sleep apnea History of Crohn disease. Gastroesophageal reflux disease. History of renal calculi with stent placement. Chronic diastolic heart failure. Peripheral vascular disease. Bipolar disorder. History of acute pancreatitis in March 2018 with complicated hospital course. PLAN: Cont full liqd diet Cont current IVF Cont current pain meds Cont current HTN meds Hydralazine on hold AM labs Cont other meds as above
[2019-03-23] MEDS: Mirtazapine 15 MG TAB PO SCH (20:30)
[2019-03-23] MEDS: OLANZapine 5 MG TAB PO SCH (20:31)
[2019-03-23] MEDS ORDERED: HumaLOG 300 UNITS/3 ML VIAL SC PRN (22:09)
[2019-03-24] MEDS: D5 1/2 NS w/10 mEq KCl 1,000 ML/1,000 ML BAG IV SCH ×3 (03:33→16:50)
[2019-03-24] MEDS: Levothyroxine Sodium 100 MCG TAB PO SCH (05:34)
[2019-03-24] MEDS: HYDROcodone/Acetaminophen 5/325 mg Tablet PO PRN ×3 (05:34→20:09)
[2019-03-24] MEDS: Labetalol 100 MG TAB PO SCH ×3 (08:05→20:08)
[2019-03-24] MEDS: Gabapentin 300 MG CAP PO SCH ×3 (08:05→20:40)
[2019-03-24] MEDS: Calcitriol 0.25 MCG CAP PO SCH ×2 (08:05→20:09)
[2019-03-24] MEDS: NIFEdipine XL 30 MG TAB PO SCH ×2 (08:05→20:09)
[2019-03-24] MEDS: Famotidine 20 MG TAB PO SCH ×2 (08:06→20:08)
[2019-03-24] MEDS: Enoxaparin Sodium 30 MG/0.3 ML SYRINGE SC SCH (08:06)
[2019-03-24] MEDS: Aripiprazole 15 MG TAB PO SCH (08:06)
[2019-03-24] MEDS: cloNIDine 0.2 MG TAB PO SCH ×3 (08:06→20:08)
[2019-03-24] MEDS: Ondansetron ODT 4 MG TAB PO PRN (08:06)
[2019-03-24] MEDS: Senokot S 8.6-50 MG TAB PO PRN (08:06)
[2019-03-24 08:26] LABS: #Eosinphils 0.2 thou/uL (0.0-0.7); #Monocytes 0.5 thou/uL (0.11-0.59); #Neutrophils 2.4 thou/uL (1.40-6.50); %Basophils 0.2 % (0.0-1.0); %Monocytes 10.6 % (0.0-10.0); %Neutrophils 46.2 % (42.0-75.0); Hemoglobin 12.1 g/dL (12.0-16.0); Mean Corpuscular HGB CONC 32.2 g/dL (32.0-36.0); Mean Corpuscular Volume 93.1 fL (78.0-98.0); Mean Platelet Volume 7.7 fL (7.4-10.4); Platelet Count 253 thou/uL (130-400); RBC Distribution Width 15.6 % (11.5-14.5); Red Blood Cell (RBC) Count 4.04 mill/uL (4.20-5.40); White Blood Cell (WBC) Count 5.1 thou/uL (4.8-10.8)
--- NOTE | 2019-03-24 08:33 | PRG ---
DATE OF SERVICE: 03/23/2019 SUBJECTIVE: Ms. Brewer feels better. , she is very hungry. OBJECTIVE: VITAL SIGNS: Temperature 97.7, blood pressure 157/96, respirations 18. ABDOMEN: Protuberant, soft, nontender. LABORATORY DATA: White count 5.7, hemoglobin 11, platelet count 262. Sodium 138, potassium 3.7, BUN and creatinine are 17 and 1.52. ALT and AST are normal. Alkaline phosphatase is 150. Lipase is down to 212. ASSESSMENT: Pancreatitis of unclear etiology. She does not have any gallstones. This could be biliary, it also could be related to the doxycycline she received for URI. RECOMMENDATIONS: Advance diet as tolerated. Job ID: [id number]
[2019-03-24 09:13] LABS: ALT (SGPT) 9 U/L (8-55); AST (SGOT) 18 U/L (5-34); Albumin 3.2 g/dL (3.4-4.8); Alkaline Phosphatase 151 U/L (40-110); Anion Gap 12 mmol/L (10-20); BUN (Urea Nitrogen) 12 mg/dL (9.8-20.1); Bilirubin, Total 0.2 mg/dL (0.2-1.2); Calc. Creatinine Clearance 55 mL/min (70-130); Calcium 9.1 mg/dL (7.8-10.44); Carbon Dioxide 22 mmol/L (23-31); Chloride 108 mmol/L (98-107); Estimated GFR-MDRD 42; Glucose 151 mg/dL (80-115); Lipase 162 U/L (8-78); Potassium 4.1 mmol/L (3.5-5.1); Protein, Total 7.2 g/dL (6.0-8.3); Sodium 138 mmol/L (136-145)
[2019-03-24] MEDS: GoLYTELY 4,000 ml Bottle PO SCH (17:00)
--- NOTE | 2019-03-24 17:09 | PRG ---
DATE OF SERVICE: 03/24/2019 SUBJECTIVE: Ms. Mosqueda is feeling better today. She ate a regular diet, but then her stomach is hurting more. She has not had a bowel movement. She feels like she needs some GoLYTELY to have a bowel movement, and she states she does that routinely. OBJECTIVE: VITAL SIGNS: Temperature is 98, pulse 84, blood pressure 163/105. GENERAL: She is sitting up in bed. ABDOMEN: Soft, slightly protuberant. Bowel sounds are positive. There is no incarcerated masses or hernias. LABORATORY DATA: White count 5.1, hemoglobin 12, platelet count 253. Sodium 138, potassium 4, BUN and creatinine are 12 and 1.5 down from 41 and 2.19 on admission. Alkaline phosphatase 151, albumin 3.2. Lipase 162, 212 yesterday, 924 on admission. ASSESSMENT: 1. Recurrent pancreatitis. This may be from doxycycline. She got that last year about this time of year and had pancreatitis, and she had it again just a few weeks prior to this admission. Alternatively, choledocholithiasis is a thought as she has had a previous gallbladder removed, but her imaging showed no ductal dilatation, and her other liver enzymes have been completely normal including bilirubin. Her pancreatitis seems to be improving. 2. Obstipation. She does not seem to have a bowel obstruction by her admission CT. She does have a history of Crohn's and multiple surgeries in the past. She states often she does get constipated and will take laxatives. She has had partial bowel obstructions in the past. She is having no nausea or vomiting. We will try some slow course of GoLYTELY at her request to see if that helps with some bowel movement. I have told her if she has any nausea or starts becoming more distended, not to keep pushing. Job ID: [id number]
--- NOTE | 2019-03-24 18:36 | PDOC.HOSPP ---
- Subjective Encounter Date: 03/24/19 Encounter Time: 12:30 Subjective: Patient seen and examined for Acute Pancreatitis. No new complaints. No overnight events - Objective Vital Signs & Weight: Vital Signs (12 hours) Temp Pulse Resp BP BP Pulse Ox 03/24/19 14:34 163/105 H 03/24/19 08:00 95 03/24/19 07:25 98.4 F 84 20 150/98 H 95 Weight Weight 204 lb 3.2 oz I&O: 03/23/19 03/24/19 03/25/19 06:59 06:59 06:59 Intake Total 2115 3490 Balance 2115 3490 Result Diagrams: 03/24/19 08:10 03/24/19 08:10 Additional Labs: Accuchecks 03/24/19 03/24/19 03/24/19 16:07 11:42 05:14 POC Glucose 136 H 109 113 H 03/24/19 03/23/19 02:24 20:29 POC Glucose 116 H 215 H Hospitalist ROS - Review of Systems Respiratory: denies: cough, dry, shortness of breath, hemoptysis, SOB with excertion, pleuritic pain, sputum, wheezing, other Cardiovascular: denies: chest pain, palpitations, orthopnea, paroxysmal noc. dyspnea, edema, light headedness, other - Medication Medications: Active Medications Generic Name Dose Route Start Last Admin Trade Name Freq PRN Reason Stop Dose Admin Hydrocodone Bitart/Acetaminophen 1 tab 03/21/19 08:53 03/24/19 11:39 [place] 5/325 PO 1 tab Q6H PRN Administration Moderate Pain (4-6) Aripiprazole 15 mg 03/22/19 09:00 03/24/19 08:06 Abilify PO 15 mg DAILY JOSSY Administration Calcitriol 0.5 mcg 03/21/19 09:00 03/24/19 08:05 Rocaltrol PO 0.5 mcg BID JOSSY Administration Clonidine 0.2 mg 03/22/19 09:00 03/24/19 14:34 Catapres PO 0.2 mg TID JOSSY Administration Dextrose/Water 25 gm 03/21/19 19:47 03/22/19 12:18 Dextrose 50% SLOW IVP 25 gm PRN PRN Administration Hypoglycemia Enoxaparin Sodium 30 mg 03/21/19 09:00 03/24/19 08:06 Lovenox SC 30 mg 0900 JOSSY Administration Famotidine 20 mg 03/21/19 09:00 03/24/19 08:06 Pepcid PO 20 mg BID JOSSY Administration Fentanyl 25 mcg 03/21/19 08:53 03/23/19 20:27 Sublimaze SLOW IVP 25 mcg Q6H PRN Administration Severe Pain (7-10) Gabapentin 300 mg 03/22/19 15:00 03/24/19 14:34 Neurontin PO 300 mg TID JOSSY Administration Potassium Chloride/Dextrose/Sod Cl 1,000 ml in 1,000 mls @ 75 mls/hr 03/24/19 16:42 03/24/19 16:50 D5 1/2 Ns W/10 Meq Kcl IV Not Given .[id number] [facility] Insulin Human Lispro 0 units 03/23/19 22:09 03/23/19 22:19 Humalog SC 2 unit .BEDTIME SLIDING SC PRN Administration BEDTIME SLIDING SCALE Protocol Labetalol HCl 100 mg 03/22/19 09:00 03/24/19 14:34 Normodyne PO 100 mg TID JOSSY Administration Levothyroxine Sodium 100 mcg 03/22/19 06:00 03/24/19 05:34 Synthroid PO 100 mcg 0600 JOSSY Administration Mirtazapine 7.5 mg 03/21/19 21:00 03/23/19 20:30 Remeron PO 7.5 mg HS JOSSY Administration Nifedipine 30 mg 03/22/19 21:00 03/24/19 08:05 Procardia Xl PO 30 mg BID JOSSY Administration Olanzapine 5 mg 03/21/19 21:00 03/23/19 20:31 Zyprexa PO 5 mg HS JOSSY Administration Ondansetron HCl 4 mg 03/21/19 08:33 03/24/19 08:06 Zofran Odt PO 4 mg Q6H PRN Administration Nausea/Vomiting Ondansetron HCl 4 mg 03/21/19 08:33 03/23/19 08:03 Zofran IVP 4 mg Q6H PRN Administration Nausea/Vomiting Polyethylene Glycol/Electrolytes 4,000 ml 03/24/19 16:45 03/24/19 17:00 Golytely PO 03/25/19 16:46 4,000 ml NOW JOSSY Administration Senna/Docusate Sodium 2 tab 03/21/19 08:33 03/24/19 08:06 Senokot S PO 2 tab BIDPRN PRN Administration Constipation - Exam General Appearance: NAD Heart: RRR, no gallops Respiratory: CTAB, no rales Gastrointestinal: soft, non-tender, non-distended, normal bowel sounds Extremities: no edema Hosp A/P - Plan DVT proph w/lovenox, DVT proph w/SCDs Acute pancreatitis.?etio - prob Doxycycline induced. MOOK on CKD 3 - improving. Obesity with a BMI of 37.3. Diabetes mellitus type 2. Hypertension Hypertensive urgency on admission. Obstructive sleep apnea History of Crohn disease. GERD. History of renal calculi with stent placement. Chronic diastolic heart failure. Peripheral vascular disease. Bipolar disorder. History of acute pancreatitis in March 2018 with complicated hospital course. PLAN: Advance diet Reduce IVF to 75 ml/hr Pain control Cont current HTN meds Resume Hydralazine at dc Cont other meds as above. AM labs
[2019-03-24] MEDS: Mirtazapine 15 MG TAB PO SCH (20:09)
[2019-03-24] MEDS: OLANZapine 5 MG TAB PO SCH (20:11)
[2019-03-25] MEDS: Ondansetron ODT 4 MG TAB PO PRN (05:04)
[2019-03-25] MEDS: Levothyroxine Sodium 100 MCG TAB PO SCH (05:04)
[2019-03-25] MEDS: HYDROcodone/Acetaminophen 5/325 mg Tablet PO PRN ×2 (05:04→14:45)
[2019-03-25] MEDS: hydrALAZINE 20 MG/ML VIAL SLOW IVP PRN ×3 (05:05→14:45)
[2019-03-25] MEDS: D5 1/2 NS w/10 mEq KCl 1,000 ML/1,000 ML BAG IV SCH (05:05)
[2019-03-25 05:26] LABS: #Basophils 0.1 thou/uL (0.0-0.2); #Eosinphils 0.2 thou/uL (0.0-0.7); #Lymphocytes 1.7 thou/uL (1.20-3.40); #Monocytes 0.6 thou/uL (0.11-0.59); #Neutrophils 2.3 thou/uL (1.40-6.50); %Basophils 1.1 % (0.0-1.0); %Eosinophils 4.3 % (0.0-10.0); %Lymphocytes 35.1 % (21.0-51.0); %Monocytes 11.8 % (0.0-10.0); %Neutrophils 47.8 % (42.0-75.0); Mean Corpuscular HGB CONC 32.9 g/dL (32.0-36.0); Mean Corpuscular Hemoglobin 29.8 pg (27.0-31.0); Mean Corpuscular Volume 90.5 fL (78.0-98.0); Mean Platelet Volume 7.6 fL (7.4-10.4); Platelet Count 253 thou/uL (130-400); RBC Distribution Width 15.3 % (11.5-14.5); Red Blood Cell (RBC) Count 4.02 mill/uL (4.20-5.40); White Blood Cell (WBC) Count 4.8 thou/uL (4.8-10.8)
[2019-03-25 05:47] LABS: ALT (SGPT) 14 U/L (8-55); AST (SGOT) 28 U/L (5-34); Albumin 3.4 g/dL (3.4-4.8); Alkaline Phosphatase 163 U/L (40-110); Anion Gap 11 mmol/L (10-20); BUN (Urea Nitrogen) 10 mg/dL (9.8-20.1); Bilirubin, Total 0.2 mg/dL (0.2-1.2); Calc. Creatinine Clearance 61 mL/min (70-130); Calcium 9.1 mg/dL (7.8-10.44); Carbon Dioxide 29 mmol/L (23-31); Chloride 105 mmol/L (98-107); Estimated GFR-MDRD 47; Globulin 4.1 g/dL (2.4-3.5); Glucose 158 mg/dL (80-115); Lipase 195 U/L (8-78); Magnesium 1.7 mg/dL (1.6-2.6); Potassium 3.6 mmol/L (3.5-5.1); Protein, Total 7.5 g/dL (6.0-8.3); Sodium 141 mmol/L (136-145)
[2019-03-25] MEDS: cloNIDine 0.2 MG TAB PO SCH ×2 (09:06→14:39)
[2019-03-25] MEDS: Labetalol 100 MG TAB PO SCH ×2 (09:06→14:39)
[2019-03-25] MEDS: Famotidine 20 MG TAB PO SCH (09:06)
[2019-03-25] MEDS: Calcitriol 0.25 MCG CAP PO SCH (09:07)
[2019-03-25] MEDS: Aripiprazole 15 MG TAB PO SCH (09:07)
[2019-03-25] MEDS: Enoxaparin Sodium 30 MG/0.3 ML SYRINGE SC SCH (09:07)
[2019-03-25] MEDS: Gabapentin 300 MG CAP PO SCH ×2 (09:07→14:39)
[2019-03-25] MEDS: NIFEdipine XL 30 MG TAB PO SCH (09:10)
[2019-03-25] MEDS: HumaLOG 300 UNITS/3 ML VIAL SC PRN ×2 (12:21→16:40)
[2019-03-25] MEDS ORDERED: D5 1/2 NS w/10 mEq KCl 1,000 ML/1,000 ML BAG IV SCH (15:25)
[2019-03-25] MEDS ORDERED: NIFEdipine XL 30 MG TAB PO SCH (15:30)
[2019-03-25] MEDS ORDERED: Losartan 25 MG TAB PO SCH (15:30)
[2019-03-25] MEDS ORDERED: Furosemide 40 MG/4 ML VIAL SLOW IVP SCH (17:00)
--- NOTE | 2019-03-25 17:43 | PDOC.HOSPP ---
- Subjective Encounter Date: 03/25/19 Encounter Time: 17:00 Subjective: Patient seen and examined for Pancreatitis. Abd pain gradually improving. No new complaints. No overnight events - Objective Vital Signs & Weight: Vital Signs (12 hours) Temp Pulse Resp BP BP BP Pulse Ox 03/25/19 16:35 100 175/108 H 03/25/19 16:00 155/104 H 03/25/19 14:45 100 175/108 H 03/25/19 14:39 100 175/108 H 03/25/19 12:39 100 03/25/19 11:00 177/106 H 03/25/19 09:10 100 03/25/19 09:06 100 175/108 H 03/25/19 08:00 95 03/25/19 07:24 98.3 F 100 20 168/109 H 95 Weight Weight 204 lb 3.2 oz I&O: 03/24/19 03/25/19 03/26/19 06:59 06:59 06:59 Intake Total 3490 960 Balance 3490 960 Result Diagrams: 03/25/19 05:15 03/25/19 03:30 Additional Labs: Accuchecks 03/25/19 03/25/19 03/25/19 16:23 11:24 04:53 POC Glucose 171 H 154 H 173 H 03/24/19 19:16 POC Glucose 156 H Hospitalist ROS - Review of Systems Respiratory: denies: cough, dry, shortness of breath, hemoptysis, SOB with excertion, pleuritic pain, sputum, wheezing, other Cardiovascular: denies: chest pain, palpitations, orthopnea, paroxysmal noc. dyspnea, edema, light headedness, other - Medication Medications: Active Medications Generic Name Dose Route Start Last Admin Trade Name Freq PRN Reason Stop Dose Admin Hydrocodone Bitart/Acetaminophen 1 tab 03/21/19 08:53 03/25/19 14:45 [place] 5/325 PO 1 tab Q6H PRN Administration Moderate Pain (4-6) Aripiprazole 15 mg 03/22/19 09:00 03/25/19 09:07 Abilify PO 15 mg DAILY JOSSY Administration Calcitriol 0.5 mcg 03/21/19 09:00 03/25/19 09:07 Rocaltrol PO 0.5 mcg BID JOSSY Administration Dextrose/Water 25 gm 03/21/19 19:47 03/22/19 12:18 Dextrose 50% SLOW IVP 25 gm PRN PRN Administration Hypoglycemia Enoxaparin Sodium 30 mg 03/21/19 09:00 03/25/19 09:07 Lovenox SC 30 mg 0900 [facility] Administration Fentanyl 25 mcg 03/21/19 08:53 03/23/19 20:27 Sublimaze SLOW IVP 25 mcg Q6H PRN Administration Severe Pain (7-10) Gabapentin 300 mg 03/22/19 15:00 03/25/19 14:39 Neurontin PO 300 mg TID JOSSY Administration Hydralazine HCl 10 mg 03/21/19 08:41 03/25/19 14:45 Apresoline SLOW IVP 10 mg Q4H PRN Administration SBP Greater Than 180 Insulin Human Lispro 0 units 03/23/19 22:09 03/25/19 16:40 Humalog SC 2 units .MODERATE SLIDING SC PRN Administration MODERATE SLIDING SCALE Protocol Insulin Human Lispro 0 units 03/23/19 22:09 03/23/19 22:19 Humalog SC 2 unit .BEDTIME SLIDING SC PRN Administration BEDTIME SLIDING SCALE Protocol Levothyroxine Sodium 100 mcg 03/22/19 06:00 03/25/19 05:04 Synthroid PO 100 mcg 0600 [facility] Administration Mirtazapine 7.5 mg 03/21/19 21:00 03/24/19 20:09 Remeron PO 7.5 mg HS JOSSY Administration Olanzapine 5 mg 03/21/19 21:00 03/24/19 20:11 Zyprexa PO 5 mg HS JOSSY Administration Ondansetron HCl 4 mg 03/21/19 08:33 03/25/19 05:04 Zofran Odt PO 4 mg Q6H PRN Administration Nausea/Vomiting Ondansetron HCl 4 mg 03/21/19 08:33 03/23/19 08:03 Zofran IVP 4 mg Q6H PRN Administration Nausea/Vomiting Senna/Docusate Sodium 2 tab 03/21/19 08:33 03/24/19 08:06 Senokot S PO 2 tab BIDPRN PRN Administration Constipation - Exam General Appearance: NAD Heart: RRR, no gallops Respiratory: no wheezes, no ronchi Gastrointestinal: soft, non-tender Extremities: 1+ LE edema Psychiatric: A&O x 3 Hosp A/P - Plan DVT proph w/lovenox Acute pancreatitis.?etio - prob Doxycycline induced. MOOK on CKD 3 - improving. Obesity with a BMI of 37.3. Diabetes mellitus type 2. Hypertension with Hypertensive urgency on admission. Obstructive sleep apnea History of Crohn disease. GERD. History of renal calculi with stent placement. Chronic diastolic heart failure. Peripheral vascular disease. Bipolar disorder. History of acute pancreatitis in March 2018 with complicated hospital course. PLAN: DC IVF Start IV Lasix Cont Pain control Increase Procardia XL Resume Hydralazine/Losartan Cont other meds as above. AM labs DC in AM if stable
[2019-03-25] MEDS: GoLYTELY 4,000 ml Bottle PO SCH (18:04)
[2019-03-25] MEDS: Pantoprazole 40 MG VIAL IVP SCH (18:08)
[2019-03-25] MEDS ORDERED: Potassium Chloride 20 MEQ TAB PO SCH (21:00)
[2019-03-26] MEDS: NIFEdipine XL 60 MG TAB PO SCH ×2 (00:45→09:10)
[2019-03-26] MEDS: Mirtazapine 15 MG TAB PO SCH (00:46)
[2019-03-26] MEDS: hydrALAZINE 25 MG TAB PO SCH ×3 (00:46→14:27)
[2019-03-26] MEDS: Calcitriol 0.25 MCG CAP PO SCH ×2 (00:47→09:12)
[2019-03-26] MEDS: Labetalol 100 MG TAB PO SCH ×2 (00:47→09:11)
[2019-03-26] MEDS: Gabapentin 300 MG CAP PO SCH ×3 (00:47→14:28)
[2019-03-26] MEDS: OLANZapine 5 MG TAB PO SCH (00:48)
[2019-03-26] MEDS: cloNIDine 0.3 MG TAB PO SCH ×2 (01:09→09:09)
[2019-03-26] MEDS: Levothyroxine Sodium 100 MCG TAB PO SCH (06:05)
[2019-03-26 07:00] LABS: Anion Gap 13 mmol/L (10-20); BUN (Urea Nitrogen) 11 mg/dL (9.8-20.1); Calc. Creatinine Clearance 52 mL/min (70-130); Calcium 9.2 mg/dL (7.8-10.44); Carbon Dioxide 28 mmol/L (23-31); Chloride 103 mmol/L (98-107); Estimated GFR-MDRD 40; Glucose 133 mg/dL (80-115); Magnesium 1.6 mg/dL (1.6-2.6); Potassium 4.4 mmol/L (3.5-5.1); Sodium 140 mmol/L (136-145)
[2019-03-26 07:45] VITALS: BP 146/90; TEMP 98.3
[2019-03-26] MEDS ORDERED: Furosemide 40 MG/4 ML VIAL SLOW IVP SCH (09:00)
[2019-03-26] MEDS ORDERED: Losartan 25 MG TAB PO SCH (09:00)
[2019-03-26] MEDS: Aripiprazole 15 MG TAB PO SCH (09:12)
[2019-03-26] MEDS: Enoxaparin Sodium 30 MG/0.3 ML SYRINGE SC SCH (09:13)
[2019-03-26] MEDS: Senokot S 8.6-50 MG TAB PO PRN (09:19)
[2019-03-26] MEDS: HYDROcodone/Acetaminophen 5/325 mg Tablet PO PRN ×2 (09:19→14:28)
[2019-03-26] MEDS: Pantoprazole 40 MG VIAL IVP SCH (09:28)
--- NOTE | 2019-03-26 14:10 | PDOC.HOSPP ---
- Subjective Encounter Date: 03/26/19 Encounter Time: 14:08 Subjective: Ms. Mosqueda was seen today in follow-up of acute pancreatitis. She notes improved abdominal pain. She rates it a 3/10 after eating. - Objective Vital Signs & Weight: Vital Signs (12 hours) Temp Pulse Resp BP BP Pulse Ox 03/26/19 09:10 84 03/26/19 07:43 98.3 F 84 20 146/90 H 100 03/26/19 04:00 98.8 F 88 20 149/99 H 96 Weight Weight 204 lb 3.2 oz I&O: 03/25/19 03/26/19 03/27/19 06:59 06:59 06:59 Intake Total 1280 Balance 1280 Result Diagrams: 03/25/19 05:15 03/26/19 06:03 Additional Labs: Accuchecks 03/26/19 03/26/19 03/25/19 11:32 04:45 19:34 POC Glucose 187 H 141 H 130 H 03/25/19 16:23 POC Glucose 171 H Hospitalist ROS - Medication Medications: Active Medications Generic Name Dose Route Start Last Admin Trade Name Freq PRN Reason Stop Dose Admin Hydrocodone Bitart/Acetaminophen 1 tab 03/21/19 08:53 03/26/19 09:19 [place] 5/325 PO 1 tab Q6H PRN Administration Moderate Pain (4-6) Aripiprazole 15 mg 03/22/19 09:00 03/26/19 09:12 Abilify PO 15 mg DAILY JOSSY Administration Calcitriol 0.5 mcg 03/21/19 09:00 03/26/19 09:12 Rocaltrol PO 0.5 mcg BID JOSSY Administration Clonidine 0.3 mg 03/25/19 21:00 03/26/19 09:09 Catapres PO 0.3 mg BID JOSSY Administration Dextrose/Water 25 gm 03/21/19 19:47 03/22/19 12:18 Dextrose 50% SLOW IVP 25 gm PRN PRN Administration Hypoglycemia Enoxaparin Sodium 30 mg 03/21/19 09:00 03/26/19 09:13 Lovenox SC 30 mg 0900 JOSSY Administration Fentanyl 25 mcg 03/21/19 08:53 03/23/19 20:27 Sublimaze SLOW IVP 25 mcg Q6H PRN Administration Severe Pain (7-10) Furosemide 40 mg 03/26/19 09:00 03/26/19 09:13 Lasix SLOW IVP 40 mg DAILY JOSSY Administration Gabapentin 300 mg 03/22/19 15:00 03/26/19 09:13 Neurontin PO 300 mg TID JOSSY Administration Hydralazine HCl 10 mg 03/21/19 08:41 03/25/19 14:45 Apresoline SLOW IVP 10 mg Q4H PRN Administration SBP Greater Than 180 Hydralazine HCl 75 mg 03/25/19 21:00 03/26/19 09:10 Apresoline PO 75 mg TID JOSSY Administration Insulin Human Lispro 0 units 03/23/19 22:09 03/25/19 16:40 Humalog SC 2 units .MODERATE SLIDING SC PRN Administration MODERATE SLIDING SCALE Protocol Insulin Human Lispro 0 units 03/23/19 22:09 03/23/19 22:19 Humalog SC 2 unit .BEDTIME SLIDING SC PRN Administration BEDTIME SLIDING SCALE Protocol Labetalol HCl 200 mg 03/25/19 21:00 03/26/19 09:11 Normodyne PO 200 mg BID JOSSY Administration Levothyroxine Sodium 100 mcg 03/22/19 06:00 03/26/19 06:05 Synthroid PO 100 mcg 0600 JOSSY Administration Losartan Potassium 50 mg 03/26/19 09:00 03/26/19 09:11 Cozaar PO 50 mg DAILY JOSSY Administration Mirtazapine 7.5 mg 03/21/19 21:00 03/26/19 00:46 Remeron PO 7.5 mg HS JOSSY Administration Nifedipine 60 mg 03/25/19 21:00 03/26/19 09:10 Procardia Xl PO 60 mg BID JOSSY Administration Olanzapine 5 mg 03/21/19 21:00 03/26/19 00:48 Zyprexa PO 5 mg HS JOSSY Administration Ondansetron HCl 4 mg 03/21/19 08:33 03/25/19 05:04 Zofran Odt PO 4 mg Q6H PRN Administration Nausea/Vomiting Ondansetron HCl 4 mg 03/21/19 08:33 03/23/19 08:03 Zofran IVP 4 mg Q6H PRN Administration Nausea/Vomiting Pantoprazole Sodium 40 mg 03/25/19 09:00 03/26/19 09:28 Protonix IVP 40 mg DAILY JOSSY Administration Senna/Docusate Sodium 2 tab 03/21/19 08:33 03/26/19 09:19 Senokot S PO 2 tab BIDPRN PRN Administration Constipation - Exam Eye: PERRL Heart: RRR, no murmur, no gallops, no rubs, normal peripheral pulses Respiratory: CTAB, no wheezes, no rales, no ronchi, normal chest expansion, no tachypnea, normal percussion Gastrointestinal: soft, non-tender, non-distended, normal bowel sounds, no palpable masses, no hepatomegaly, no splenomegaly Extremities: no cyanosis, no clubbing, no edema Hosp A/P (1) Acute pancreatitis Code(s): K85.90 - ACUTE PANCREATITIS WITHOUT NECROSIS OR INFECTION, UNSP Status: Acute (2) Crohns disease Code(s): K50.90 - CROHN'S DISEASE, UNSPECIFIED, WITHOUT COMPLICATIONS Status: Chronic Qualifiers: Gastrointestinal tract location: unspecified location Digestive disease complication type: without complication Qualified Code(s): K50.90 - Crohn's disease, unspecified, without complications (3) DM type 2 (diabetes mellitus, type 2) Status: Chronic Qualifiers: Diabetes mellitus jail insulin use: with motor vehicle salesperson use (4) Diastolic heart failure Code(s): I50.30 - UNSPECIFIED DIASTOLIC (CONGESTIVE) HEART FAILURE Status: Chronic Qualifiers: Heart failure chronicity: acute on chronic Qualified Code(s): I50.33 - Acute on chronic diastolic (congestive) heart failure (5) Hypertension Code(s): I10 - ESSENTIAL (PRIMARY) HYPERTENSION Status: Chronic Qualifiers: Hypertension type: essential hypertension - Plan * Acute pancreatitis- resolving * HTN-stable- her medications have been titrated up yo her home dose. * Likely home this afternoon
--- NOTE | 2019-03-26 15:01 | PRG ---
DATE OF SERVICE: 03/26/2019 SUBJECTIVE: Ms. Mosqueda is feeling better today. She is asking if she can go home. She had good diuresis with diuretics yesterday. Her blood pressure is under better control with change in her regimen. She is eating well. Her bowels are moving. She does still have some edema in her legs, but it has improved. OBJECTIVE: VITAL SIGNS: Temperature is 98.3, T-max 98, pulse is 84, and blood pressure 146/90. GENERAL: She is resting comfortably, sitting inside the bed. She is doing crossword puzzles. She is eating well today. LUNGS: Clear. HEART: Regular without clicks or murmurs. ABDOMEN: Soft. Slightly protuberant. There is mild epigastric tenderness without rebound or guarding. EXTREMITIES: No clubbing or cyanosis. There is 1+ edema in the legs bilaterally. LABORATORY DATA: Normal CBC yesterday. basic metabolic panel today, sodium 140, potassium 4.4, and BUN and creatinine of 11 and 1.59. Lipase was not rechecked, it was 195 yesterday. Other LFTs were normal except for alkaline phosphatase of 163. ASSESSMENT: 1. Pancreatitis, etiology unclear, resolved. This was noted on CT imaging and she also had a lipase of around 900 when she came in. She had a similar episode a year ago both that time and this time, she had received doxycycline antecedently for URI before she presented. I think this is most likely etiology, although she does have slightly elevated alkaline phosphatase. It may be reasonable to get an outpatient MRCP on her. 2. Crohn, seemingly in remission. She had surgery early this year. She is on Remicade. I told her she has a followup this month for that infusion and told to keep that appointment. 3. Mild edema, likely related to her fluid resuscitation. She received Lasix yesterday and that is improving. She is going to go back on her diuretic when she goes home. 4. History of bowel obstruction last year. None this admission. She had required surgery last year. She does take some MiraLAX or even GoLYTELY occasionally for constipation. She did get one dose that is here in the hospital and her bowels are moving well. PLAN: [place] diet. Resume home medications. Follow up with Dr. Mansfield in 1 to 2 weeks in the office. Her home #[phone]. We could arrange that followup this. Job ID: [id number]
--- NOTE | 2019-03-26 16:38 | DIS ---
DATE OF ADMISSION: 03/20/2019 DATE OF DISCHARGE: 03/26/2019 DISCHARGE DISPOSITION: Home. DISCHARGE DIAGNOSES: 1. Acute pancreatitis. 2. History of Crohn's disease. 3. Diabetes mellitus, type 2. 4. Hypertension. 5. History of transient ischemic attack. 6. Bipolar disorder. 7. Chronic pain syndrome. 8. Obstructive sleep apnea, on CPAP. 9. Gastroesophageal reflux disease. 10. History of urinary retention. 11. Chronic diastolic heart failure. 12. Hyperlipidemia. DISCHARGE MEDICATIONS: Include; 1. Tramadol 50 mg p.o. t.i.d. 2. Torsemide 100 mg daily. 3. Olanzapine 5 mg at bedtime. 4. Nifedipine extended release 60 mg twice daily. 5. Mirtazapine 7.5 mg at bedtime. 6. Amitiza 24 mcg p.o. twice a day. 7. Losartan 100 mg daily. 8. Levothyroxine 100 mcg daily. 9. Labetalol 200 mg twice daily. 10. Levemir insulin 16 units twice a day. 11. Hydralazine 100 mg t.i.d. 12. Gabapentin 300 mg t.i.d. 13. Doxepin 150 mg p.o. at bedtime. 14. Clonidine 0.3 mg twice daily. 15. Calcitriol 0.5 mg twice daily. 16. Rexulti 3 mg daily. PROCEDURES DONE DURING ADMISSION: The patient had a CT scan of the abdomen and pelvis showing evidence of marked pancreatitis, some fatty infiltration of the liver and inflammatory change in peripancreatic inflammation. There is no pseudocyst or abscess, however and there is absence of the gallbladder. HOSPITAL COURSE: Ms. Mosqueda is a pleasant 63-year-old female, who presented to the emergency room with complaints of severe abdominal pain over the last week, noted in the paraumbilical area with 4 episodes of vomiting. She was admitted and found to have an elevated lipase. GI was consulted as well. She was treated with bowel rest, IV fluids, and IV analgesics, and improved over the course of the next couple of days. It was felt that her pancreatitis was the result of the antibiotic doxycycline since she had a similar episode about a year ago. After her diet was advanced and she was tolerating p.o., she was able to be discharged home in stable condition and she will be continuing her previous home medications. Job ID: [id number]
--- NOTE | 2019-03-28 10:24 | PRG ---
DATE OF SERVICE: 03/25/2019 SUBJECTIVE: Ms. Mosqueda complains a lot of burning in her stomach, but not like when she came in. She also has had some issues of hypertension today and apparently some changes were made in her dosing of her clonidine to address that. Also, her son has noted that she has more edema in her legs and her belly seems little more swollen. She did have a good bowel movement to MiraLAX yesterday. PRESENT MEDICATIONS: 1. Abilify. 2. Calcitriol. 3. Catapres. 4. Clonidine 0.2 t.i.d., 0.1 q.4 hours p.r.n., 0.3 mg p.o. b.i.d., started today instead of the 0.2. 5. D5 half-normal 20K at 50 an hour. 6. Lovenox. 7. Pepcid p.r.n. 8. Fentanyl. 9. Gabapentin. 10. Glucose. 11. Insulin sliding scale. 12. Losartan. 13. Labetalol. 14. Levothyroxine. 15. Mirtazapine. 16. Nifedipine. 17. Zyprexa. 18. Zofran p.r.n. 19. Senokot p.r.n. OBJECTIVE: VITAL SIGNS: Temperature 98, pulse 100, blood pressure 175/108. GENERAL: She is resting, sitting up at side of the bed. Her son is at bedside. She has no overt distress. ABDOMEN: She has some protuberant abdomen. Bowel sounds are positive. LUNGS: Clear. HEART: Regular without clicks or murmurs. EXTREMITIES: Reveal edema. LABORATORY DATA: White count 4.8, hemoglobin 12, platelet count 253. Sodium 141, BUN and creatinine are 10 and 1.36, alkaline phosphatase 143, lipase 195. ASSESSMENT: 1. Pancreatitis, resolving. 2. Edema, likely related to volume resuscitation. 3. Epigastric burning. 4. Hypertension. 5. Bipolar with some anxiety. RECOMMENDATIONS: 1. Lasix 40 mg IV x1. 2. We will stop IV fluids if she is tolerating regular diet and oral liquids. 3. Blood pressure control per primary service. 4. We will stop H2 krish and start PPI. Hopefully, she will go home soon. She had good bowel movements yesterday and she does not show any signs of obstruction. She will need to resume her treatment for her Crohn's on discharge. Job ID: [id number]
== END 2019-03-26 14:58 | disposition home or self-care (01) | DRG 439 ==
LOC: ERS 17:42 → T4-A 21:55
PROVIDERS: ADMIT Internal Medicine; ATTEND Internal Medicine
DX: K85.30 Drug induced acute pancreatitis without necrosis or infection (principal); I13.0 Hypertensive heart and chronic kidney disease with heart failure and stage 1 through stage 4 chronic kidney disease, or unspecified chronic kidney disease; N17.9 Acute kidney failure, unspecified; I50.32 Chronic diastolic (congestive) heart failure; Z90.49 Acquired absence of other specified parts of digestive tract; E66.9 Obesity, unspecified; F31.9 Bipolar disorder, unspecified; F17.210 Nicotine dependence, cigarettes, uncomplicated; E11.22 Type 2 diabetes mellitus with diabetic chronic kidney disease; N18.9 Chronic kidney disease, unspecified; G43.909 Migraine, unspecified, not intractable, without status migrainosus; K21.9 Gastro-esophageal reflux disease without esophagitis; E78.5 Hyperlipidemia, unspecified; G89.4 Chronic pain syndrome; Z86.73 Personal history of transient ischemic attack (TIA), and cerebral infarction without residual deficits; Z90.710 Acquired absence of both cervix and uterus; Z88.8 Allergy status to other drugs, medicaments and biological substances; I16.0 Hypertensive urgency; E86.0 Dehydration; J44.9 Chronic obstructive pulmonary disease, unspecified; Z68.37 Body mass index [BMI] 37.0-37.9, adult; T36.4X5A Adverse effect of tetracyclines, initial encounter; G47.33 Obstructive sleep apnea (adult) (pediatric)
CPT/HCPCS: 36415; 36416; 71045; 74176; 80048; 80053; 81003; 82150; 82550; 83690; 83735; 83880; 84478; 84484; 85025; 93005; 94760; 96361; 96374; 96375; 96376; C9113; J0360; J1642; J1650; J1940; J2405; J3010; Q0162; S0028

== ENCOUNTER → 2019-04-06 | Day surgery (SDC) | payer OTHER ==
[~2019-04-06] MED LIST changes: +Sodium Chloride 0.9% 20 ML ONE
[2019-04-06 12:19] VITALS: BP 155/87; TEMP 98.3
== END ==
LOC: ONC/OP 08:52
PROVIDERS: ATTEND Internal Medicine Gastroenterology
DX: K50.10 Crohn's disease of large intestine without complications (principal)
CPT/HCPCS: 96413; 96415; J1642; J7050; Q0163; Q5103

== ENCOUNTER 2019-04-12 10:38 | Outpatient (CLI) | payer OTHER ==
--- NOTE | 2019-04-12 12:29 | MRI ---
EXAM: MRI of the abdomen without contrast COMPARISON: None HISTORY: Crohn's disease TECHNIQUE: Multiplanar multi sequence MR images were taken of the abdomen without IV contrast. An MRC P was performed. FINDINGS: Liver: No focal liver lesions or intrahepatic ductal dilatation. Slight loss of signal on out of phas e images consistent with fatty infiltration.. Gallbladder: Absent Common bile duct: Normal caliber without filling defects Adrenal glands: Unremarkable. Kidneys: Nonenhancing bilateral renal cysts measuring up to 1.9 cm in size. Some of these cysts are h yperdense cysts with high T1 signal. Spleen: Unremarkable. Pancreas: Unremarkable. Retroperitoneum: No enlarged lymph nodes Bones: No marrow signal abnormality. IMPRESSION: 1. Fatty liver 2. Bilateral renal cysts
== END 2019-04-12 10:39 | disposition home or self-care (01) ==
LOC: BICMRI 10:38
PROVIDERS: ATTEND Internal Medicine Gastroenterology
DX: K50.90 Crohn's disease, unspecified, without complications (principal); K21.9 Gastro-esophageal reflux disease without esophagitis; K85.90 Acute pancreatitis without necrosis or infection, unspecified; K59.00 Constipation, unspecified; K76.0 Fatty (change of) liver, not elsewhere classified; N28.1 Cyst of kidney, acquired
CPT/HCPCS: 74181; 82565

== ENCOUNTER 2019-05-24 20:30 | Outpatient (CLI) | payer OTHER | END 2019-05-24 20:31 | disposition home or self-care (01) | LOC: SLEEPLAB 20:30 | PROVIDERS: ATTEND Family Medicine | DX: G47.10 Hypersomnia, unspecified (principal); G25.81 Restless legs syndrome; R06.89 Other abnormalities of breathing; I11.0 Hypertensive heart disease with heart failure; E11.9 Type 2 diabetes mellitus without complications; G47.61 Periodic limb movement disorder; G47.9 Sleep disorder, unspecified; R53.83 Other fatigue; G31.84 Mild cognitive impairment of uncertain or unknown etiology; E66.9 Obesity, unspecified; K21.9 Gastro-esophageal reflux disease without esophagitis; R06.83 Snoring; F32.9 Major depressive disorder, single episode, unspecified; F41.9 Anxiety disorder, unspecified; J44.9 Chronic obstructive pulmonary disease, unspecified; G47.33 Obstructive sleep apnea (adult) (pediatric); Z68.32 Body mass index [BMI] 32.0-32.9, adult | CPT/HCPCS: 95810 ==

== ENCOUNTER 2019-05-31 10:12 | Outpatient (CLI) | payer OTHER ==
--- NOTE | 2019-05-31 11:04 | ULT ---
Renal sonogram HISTORY: Renal cysts. Stones. COMPARISON: CT 03/20/2019. FINDINGS: Right kidney measures up to 11.6 cm. No hydronephrosis. No echogenic stones visible. Vascul ar calcification evident. A partially exophytic cyst projecting from the lateral cortex is 0.9 cm greatest diameter. A cyst at the inferior pole is 1.1 cm. Left kidney measures up to 10.6 cm. No hydronephrosis or echogenic stone evident. Vascular calcificat ions are seen. Multiple small cortical cysts. Largest is near the superior pole measuring up to 2.2 cm with a thin internal septation. IMPRESSION : Small bilateral renal cysts. No evidence of urinary tract obstruction or other acute abnormality
== END 2019-05-31 10:13 | disposition home or self-care (01) ==
LOC: BICULT 10:12
PROVIDERS: ATTEND Urology
DX: N20.0 Calculus of kidney (principal); N28.1 Cyst of kidney, acquired
CPT/HCPCS: 76770

== ENCOUNTER 2019-06-01 11:51 | Outpatient (CLI) | payer OTHER ==
--- NOTE | 2019-06-01 12:07 | RAD ---
EXAM: 3 views of the left ankle HISTORY: Left ankle pain for 2 months COMPARISON: 08/11/2017 FINDINGS: 3 views of the left ankle shows no evidence of acute fracture or dislocation. Moderate diff use soft tissue swelling is seen. No degenerative changes are present. IMPRESSION: No evidence of acute osseous abnormality.
== END 2019-06-01 11:52 | disposition home or self-care (01) ==
LOC: BICRAD 11:51
PROVIDERS: ATTEND Family Medicine
DX: M25.572 Pain in left ankle and joints of left foot (principal)

== ENCOUNTER 2019-06-03 09:37 | Day surgery (SDC) | payer OTHER ==
[2019-06-03] MEDS ORDERED: diphenhydrAMINE 25 MG CAP PO PRN (09:42)
[2019-06-03] MEDS ORDERED: Acetaminophen 500 MG TAB PO PRN (09:42)
[2019-06-03] MEDS ORDERED: SODIUM CHLORIDE 0.9% IVPB SCH (09:45)
[2019-06-03] MEDS ORDERED: INFLIXIMAB DYYB IVPB SCH (09:45)
[2019-06-03] MEDS ORDERED: Sodium Chloride 0.9% 20 ML ONE (10:25)
== END 2019-06-03 13:06 | disposition home or self-care (01) ==
LOC: ONC/OP 09:37
PROVIDERS: ATTEND Internal Medicine Gastroenterology
DX: K50.10 Crohn's disease of large intestine without complications (principal); Z88.5 Allergy status to narcotic agent
CPT/HCPCS: 96413; 96415; J1642; J7050; Q0163; Q5103

== ENCOUNTER 2019-07-12 05:28 | Day surgery (SDC) | payer OTHER ==
[2019-07-11 12:33] VITALS: BMI 36.6
[2019-07-12] MEDS ORDERED: Sodium Chloride 0.9% 10 ML ONE (08:57)
--- NOTE | 2019-07-12 09:17 | OP ---
DATE OF PROCEDURE: 07/12/2019 PROCEDURE PERFORMED: Colonoscopy with snare polypectomy. PREMEDICATION: Given by Anesthesiology Department. PREPROCEDURE DIAGNOSES: 1. Hematochezia/rectal bleeding. 2. Crohn's disease. POSTPROCEDURE DIAGNOSES: 1. Suboptimal prep in the right colon. 2. Small grade 1 internal hemorrhoids. 3. Tortuous sigmoid colon. 4. No apparent active inflammation or evidence of active Crohn disease. 5. 4 mm sigmoid polyp removed. PROCEDURE IN DETAIL: Written consents were obtained prior to procedure. After adequate sedation, rectal exam performed, did not show any perianal abnormality. The endoscope was advanced to the right colon. There was a retained bilious and green liquid stool that was copiously irrigated and suctioned. Where visualized , the cecum appeared normal. The distal ileum could not be intubated. The ascending colon, hepatic flexure, transverse colon appeared normal. The descending colon appeared normal. Small diverticula were noted in the sigmoid colon. A 4 mm sessile polyp was noted in the sigmoid colon and was removed with cold snare and retrieved. The rectal vault appeared normal. Retroflexion showed grade 1 small internal hemorrhoids. The patient tolerated the procedure well. POSTPROCEDURE DIAGNOSES: 1. Small sigmoid polyp, status post cold snare removal. 2. Sigmoid diverticulosis with tortuous sigmoid colon. 3. Small grade 1 internal hemorrhoids, otherwise normal colon exam. 4. No signs of active Crohn disease. RECOMMENDATIONS: 1. Fiber-rich diet with at least 30 g of fiber daily. 2. Daily Amitiza 24 mcg bid. 3. Await biopsy results. Job ID: [id number] [facility]
[2019-07-12] MEDS ORDERED: PROPOFOL 200 MG/20 ML VIAL ONE (09:47)
[2019-07-12] MEDS ORDERED: Labetalol HCl 100 MG/20 ML VIAL ONE (09:47)
== END 2019-07-12 09:20 | disposition home or self-care (01) ==
LOC: SDC 05:28
PROVIDERS: ATTEND Internal Medicine Gastroenterology
PROC: 0DBN8ZX Excision of Sigmoid Colon, Via Natural or Artificial Opening Endoscopic, Diagnostic (ICD-10-PCS; principal; 2019-07-12)
DX: K63.5 Polyp of colon (principal); K57.31 Diverticulosis of large intestine without perforation or abscess with bleeding; K50.90 Crohn's disease, unspecified, without complications; K64.0 First degree hemorrhoids; Q43.8 Other specified congenital malformations of intestine; K59.09 Other constipation; E11.9 Type 2 diabetes mellitus without complications; I10 Essential (primary) hypertension; G47.33 Obstructive sleep apnea (adult) (pediatric); F32.9 Major depressive disorder, single episode, unspecified; Z79.4 Long term (current) use of insulin; Z79.899 Other long term (current) drug therapy; Z88.1 Allergy status to other antibiotic agents
CPT/HCPCS: 88305; J1642; J2704

== ENCOUNTER 2019-07-22 13:24 | Outpatient (CLI) | payer OTHER ==
--- NOTE | 2019-08-02 14:45 | ULT ---
LOWER EXTREMITY ARTERIAL EVALUATION 07/22/19 63-year-old with complaint of claudication in both legs. Doppler waveform analysis was initially performed and all waveforms in both lower extremities are nor mal. Ankle-arm index is normal at 1.1 bilaterally and toe-brachial index is normal. ASSESSMENT: This study would be considered a normal resting arterial study for lower extremities and would not be consistent with any significant claudication or ischemic rest pain.
== END 2019-07-22 13:25 | disposition home or self-care (01) ==
LOC: ULT 13:24
PROVIDERS: ATTEND Family Medicine
DX: I73.9 Peripheral vascular disease, unspecified (principal); M79.604 Pain in right leg; M79.605 Pain in left leg
CPT/HCPCS: 93922

== ENCOUNTER 2019-08-02 11:18 | Day surgery (SDC) | payer OTHER ==
[~2019-08-02 11:18] MED LIST changes: +INFLIXIMAB DYYB IVPB SCH; -INFLIXIMAB-DYYB 900 MG in Sodium Chloride 0.9% 250 ML 250 ML IVPB SCH; +SODIUM CHLORIDE 0.9% IVPB SCH; -Sodium Chloride 0.9% 20 ML ONE
[2019-08-02 11:26] VITALS: BP 156/82; TEMP 98.5
[2019-08-02] MEDS ORDERED: Sodium Chloride 0.9% 20 ML ONE (11:29)
== END 2019-08-02 14:30 | disposition home or self-care (01) ==
LOC: ONC/OP 11:18
PROVIDERS: ATTEND Internal Medicine Gastroenterology
DX: K50.10 Crohn's disease of large intestine without complications (principal); Z88.1 Allergy status to other antibiotic agents
CPT/HCPCS: 96413; 96415; J1642; J7050; Q0163; Q5103

== ENCOUNTER 2019-09-30 08:48 | Day surgery (SDC) | payer MEDICARE, MEDICAID ==
[2019-09-30] MEDS ORDERED: Sodium Chloride 0.9% 20 ML ONE ×2 (08:51→09:16)
[2019-09-30] MEDS ORDERED: Acetaminophen 500 MG TAB PO PRN (09:07)
[2019-09-30] MEDS ORDERED: diphenhydrAMINE 25 MG CAP PO PRN (09:07)
[2019-09-30] MEDS ORDERED: SODIUM CHLORIDE 0.9% IV SCH (09:15)
[2019-09-30] MEDS ORDERED: INFLIXIMAB DYYB IV SCH (09:15)
[2019-09-30 09:42] VITALS: BP 135/74; TEMP 98.5
== END 2019-09-30 13:02 | disposition home or self-care (01) ==
LOC: ONC/OP 08:48
PROVIDERS: ATTEND Internal Medicine Gastroenterology
DX: K50.90 Crohn's disease, unspecified, without complications (principal); Z88.1 Allergy status to other antibiotic agents
CPT/HCPCS: 96413; 96415; J1642; J7050; Q0163; Q5103

== ENCOUNTER 2019-11-21 00:28 | Inpatient (IN) | payer MEDICARE, MEDICAID ==
[2019-11-21] MEDS ORDERED: Succinylcholine Chloride 20 MG/ML 10 ml SYRINGE FS ONE (00:32)
[2019-11-21] MEDS ORDERED: Propofol 1,000 MG/100 ML VIAL IV ONE (00:55)
[2019-11-21] MEDS ORDERED: Cefepime 2 GM VIAL ONE (01:18)
[2019-11-21] MEDS ORDERED: Vancomycin 1 GM/200 ML BAG ONE (01:18)
[2019-11-21 01:25] LABS: Actual Bicarbonate (HCO3a) 17.6 mEq/L (22-28); Analyzer IN Cardio ER; CO2 Tension 36.6 mmHg (35.0-45.0); Calcium, Ionized (arterial) 1.26 mmol/L (1.12-1.30); Carboxyhemoglobin (COHb) 1.8 gm% (0.0-3.0); Hemoglobin (Hb) 15.8 g/dL (12.0-16.0); Potassium - ABG Lab 6.13 mmol/L (3.70-5.30)
[2019-11-21 01:30] LABS: O2 Tension (PaO2), arterial 56.9 mmHg (> 80.0); Puncture Site R BRACHIAL
[2019-11-21 01:35] LABS: #Lymphocytes 0.7 thou/uL (1.20-3.40); #Monocytes 0.3 thou/uL (0.11-0.59); #Neutrophils 6.6 thou/uL (1.40-6.50); %Eosinophils 0.1 % (0.0-10.0); %Lymphocytes 9.2 % (21.0-51.0); %Monocytes 3.3 % (0.0-10.0); %Neutrophils 87.4 % (42.0-75.0); Hemoglobin 15.8 g/dL (12.0-16.0); Mean Corpuscular HGB CONC 35.1 g/dL (32.0-36.0); Mean Corpuscular Hemoglobin 33.7 pg (27.0-31.0); Mean Corpuscular Volume 96.2 fL (78.0-98.0); Mean Platelet Volume 12.2 fL (7.4-10.4); Platelet Count 244 thou/uL (130-400); RBC Distribution Width 15.2 % (11.5-14.5); Red Blood Cell (RBC) Count 4.68 mill/uL (4.20-5.40); White Blood Cell (WBC) Count 7.5 thou/uL (4.8-10.8)
[2019-11-21 01:37] LABS: Bacteria/HPF 1+ HPF (None Seen); Bilirubin Negative (Negative); Blood, Urine Trace (Negative); Clarity Turbid (Clear); Glucose, Urine (Dipstick) Normal (Negative); Ketone, Urine Negative (Negative); Leukocyte Negative Leu/uL (Negative); Nitrite Negative (Negative); Protein, Urine (Dipstick) 100 mg/dL (Neg-Trace); RBC/HPF None Seen HPF (0-3); Specific Gravity, Urine 1.015 (1.002-1.036); Urobilinogen Normal mg/dL (Less than 2); WBC/HPF 0-3 HPF (0-3)
[2019-11-21 01:38] LABS: INR-International Normal Ratio 1.1; PTT 34.9 sec (22.9-36.1); Prothrombin Time 14.2 sec (12.0-14.7)
[2019-11-21 01:53] LABS: D-Dimer Test 12.01 *mcg/mL (0.27-0.43)
[2019-11-21] MEDS ORDERED: Acetaminophen 325 MG Suppository PR PRN (02:11)
[2019-11-21] MEDS ORDERED: Ventilator Sedation Protocol 1 EACH FS SCH (02:15)
[2019-11-21] MEDS ORDERED: Sodium Chloride 0.9% 1,000 ML IV SCH (02:15)
[2019-11-21] MEDS ORDERED: Water For Inject, Bacteriostat 30 ML ONE (02:22)
[2019-11-21] MEDS ORDERED: Vecuronium 10 MG VIAL ONE ×2 (02:22→05:26)
[2019-11-21] MEDS ORDERED: Propofol BOLUS 1,000 MG/100 ML VIAL IV PRN (02:24)
[2019-11-21] MEDS ORDERED: Fentanyl BOLUS 250 ML IVPB PRN (02:24)
[2019-11-21] MEDS ORDERED: DISCONTINUE PREVIOUS NARCOTIC PAIN MEDICATIONS AND BENZODIAZEPINES FS SCH (02:24)
--- NOTE | 2019-11-21 03:01 | PDOC.EVN ---
Event Note - Event Note Event Note: [id number]
[2019-11-21 03:14] LABS: SARS-CoV-2 NAA Rapid Test DETECTED (NotDetected)
[2019-11-21 03:48] LABS: Albumin 3.4 g/dL (3.4-4.8)
[2019-11-21 03:49] LABS: Chloride 107 mmol/L (98-107); Potassium 6.3 mmol/L (3.5-5.1)
[2019-11-21 03:50] LABS: Globulin 4.5 g/dL (2.4-3.5); Glucose 258 mg/dL (80-115)
[2019-11-21 03:52] LABS: Anion Gap 17 mmol/L (10-20); Bilirubin, Total 0.4 mg/dL (0.2-1.2); Carbon Dioxide 16 mmol/L (23-31)
[2019-11-21 03:53] LABS: Alkaline Phosphatase 138 U/L (40-110)
[2019-11-21 03:54] LABS: BUN (Urea Nitrogen) 71 mg/dL (9.8-20.1); Calc. Creatinine Clearance 0 mL/min (70-130); Estimated GFR-MDRD 21; Protein, Total 7.9 g/dL (6.0-8.3)
[2019-11-21 03:55] LABS: AST (SGOT) 52 U/L (5-34)
[2019-11-21 03:56] LABS: ALT (SGPT) 16 U/L (8-55); CK (CPK) 191 U/L (29-168)
[2019-11-21] MEDS ORDERED: Dextrose 50% Abboject 50 ML SYRINGE SLOW IVP PRN (04:06)
[2019-11-21] MEDS ORDERED: Dextrose 5% in Water 1,000 ML IV PRN (04:06)
[2019-11-21] MEDS ORDERED: Dextrose 50% Abboject 50 ML SYRINGE SLOW IVP SCH (04:15)
[2019-11-21] MEDS ORDERED: Sodium Bicarb 50 MEQ/50 ML Abboject 8.4% SYRINGE IVP SCH (04:15)
[2019-11-21] MEDS ORDERED: Insulin Regular 300 UNITS/3 ML VIAL IVP SCH (04:15)
[2019-11-21] MEDS: Propofol 1,000 MG/100 ML VIAL IV PRN ×3 (04:21→18:00)
[2019-11-21] MEDS: Lorazepam 2 MG/ML VIAL SLOW IVP PRN (04:21)
[2019-11-21] MEDS: Insulin Regular 300 UNITS/3 ML VIAL SC PRN ×3 (04:22→21:16)
[2019-11-21] MEDS ORDERED: Calcium Gluc 4.6 MEQ/10 ML (100 MG/ML) SLOW IVP SCH (04:30)
--- NOTE | 2019-11-21 04:50 | HP ---
CHIEF COMPLAINT: Shortness of breath. HISTORY OF PRESENT ILLNESS: Ms. Mosqueda is a 64-year-old female with past medical history of Crohn disease, sleep apnea, diabetes mellitus type 2, hypertension, COPD, pancreatitis, asthma, among others, was brought to the emergency room in respiratory distress. The patient was less responsive, the patient was intubated, mechanically ventilated. The patient was tested positive for COVID 2 days ago at [facility]. In the emergency room, the patient's chest x-ray showed bilateral opacities/infiltrates. Septic workup done. Started on IV antibiotics. Feather Shaper/Pulmonary consulted. D-dimer is elevated at 12.01. ABG done after intubation showed a pH 7.30, pCO2 is 36, PO2 is 56. BMP still pending at the time of this dictation. The patient is being admitted to the intensive care unit for further management. PAST MEDICAL HISTORY: As mentioned above in history of present illness. PAST SURGICAL HISTORY: 1. Appendectomy. 2. Cholecystectomy. 3. Hysterectomy. 4. Stent placement for kidney stone. 5. Port-A-Cath right subclavian. PAST PSYCHIATRIC HISTORY: Bipolar disorder, anxiety, depression. SOCIAL HISTORY: The patient lives with family. No reported history of alcohol abuse, drug abuse. The patient smokes cigarettes, smoke half pack per day as per records. HOME MEDICATIONS: Please see home medication reconciliation form for updated medications. ALLERGIES: NO KNOWN ALLERGIES. REVIEW OF SYSTEMS: Unable to obtain. The patient is intubated and sedated. PHYSICAL EXAMINATION: GENERAL: The patient is intubated and sedated. VITAL SIGNS: Blood pressure is 112/80, pulse is 112, respiratory rate is 22, temperature is 102.4, oxygen saturation is 90% on the ventilator. HEAD AND NECK: Normocephalic. Neck supple. CHEST: Coarse bilateral breath sounds. HEART: S1, S2. Regular. ABDOMEN: Obese, soft. Bowel sounds present. NEUROLOGIC: Intubated and sedated. PSYCHIATRIC: Unable to assess. EXTREMITIES: No clubbing, no cyanosis. LABORATORY DATA: Electrolytes, BMP/CMP still pending. D-dimer is elevated at 12.01. WBC 7.5, hemoglobin 15.8, platelets 244. ABG as mentioned above in history of present illness. Chest x-ray as mentioned above in history of present illness. ASSESSMENT: 1. Acute hypoxic respiratory failure. 2. Pneumonia secondary to COVID-19 virus infection. 3. Elevated D-dimer. 4. Chronic obstructive pulmonary disease history. 5. Diabetes mellitus type 2. 6. Hypertension. 7. Sleep apnea. 8. Crohn disease. 9. . 10. Gastroesophageal reflux disease. PLAN: 1. Admit to ICU. 2. Continue full ventilator support. 3. Septic workup done in the ED, the patient was started empirically on IV antibiotics. 4. Follow rest of electrolytes, still pending at the time of dictation. 5. ED physician ordered CTA of the chest and brain CT to be followed. 6. Pulmonary/collections and archives director was consulted by ED physician. 7. Proning. 8. IV dexamethasone. 9. Further management as per Pulmonary/collections and archives director. 10. DVT prophylaxis appropriate. 11. Expected length of stay, 3 midnights or more. 12. The patient's condition is critical. Job ID: [id number]
[2019-11-21] MEDS ORDERED: Vecuronium 10 MG VIAL IVP PRN (05:24)
[2019-11-21] MEDS: Morphine 2 MG/ML VIAL SLOW IVP PRN (05:38)
[2019-11-21] MEDS: Acetaminophen 650 MG Suppository PR PRN ×2 (05:48→13:23)
[2019-11-21] MEDS: fentaNYL Citrate/PF 2,000 MCG in Sodium Chloride 0.9% 60 ML IV SCH (06:33)
[2019-11-21 08:02] LABS: Actual Bicarbonate (HCO3a) 16.8 mEq/L (22-28); Base Excess (BEa) -9.7 mEq/L (-2.0 to +3.0); Calcium, Ionized (arterial) 1.38 mmol/L (1.12-1.30); Carboxyhemoglobin (COHb) 1.1 gm% (0.0-3.0); Hemoglobin (Hb) 15.7 g/dL (12.0-16.0); Potassium - ABG Lab 5.45 mmol/L (3.70-5.30)
[2019-11-21 08:33] LABS: pH, Arterial 7.25 (7.35-7.45)
[2019-11-21 08:34] LABS: O2 Tension (PaO2), arterial 57.9 mmHg (> 80.0); Puncture Site RRA
--- NOTE | 2019-11-21 08:34 | RAD ---
CHEST 1 VIEW: HISTORY: Intubation. COMPARISON: Radiograph 08/14/2019. FINDINGS: Endotracheal tube tip below the level of the clavicles in good position. Enteric tube tip below the diaphragm out of field of view. The port catheter tip is similar. Moderate effusions. Heart size i s enlarged. Moderate pulmonary edema. IMPRESSION: Enlarging pleural effusions and worsening pulmonary edema. POS: HOME
[2019-11-21] MEDS: Famotidine/PF 20 mg/2ml Vial SLOW IVP SCH (08:41)
[2019-11-21] MEDS ORDERED: Dexamethasone 4 mg/ml Vial SLOW IVP SCH (09:00)
--- NOTE | 2019-11-21 09:05 | CT ---
PRELIMINARY REPORT/[facility]/EMERGENCY AFTER HOURS PROCEDURE: EXAM: CT Head Without Intravenous Contrast. CLINICAL HISTORY: AMS TECHNIQUE: Axial computed tomography images of the head/brain without intravenous contrast. COMPARISON: CT\SR - CT BRAIN WO CON - 10/19/2018 05:22 PM CDT FINDINGS: BRAIN: No acute intraparenchymal hemorrhage. No mass lesion. No CT evidence for acute territorial inf arct. No midline shift or extra-axial collection. Hypodensity of the white matter is nonspecific but likely represents chronic microvascular ischemic d isease. VENTRICLES: No hydrocephalus. Volume loss. ORBITS: The globes are intact. SINUSES AND MASTOIDS: The paranasal sinuses and mastoid air cells are clear. SOFT TISSUES: No significant facial or scalp soft tissue swelling evident. No radiopaque foreign body is seen. BONES: No acute skull fracture. IMPRESSION: Chronic parenchymal changes. No acute intracranial abnormality. ELECTRONICALLY SIGNED BY: Lucie Fitzpatrick MD Nov 21, 2019 3:50:33 AM CDT FINAL REPORT CT BRAIN WITHOUT CONTRAST: I agree with the preliminary report given by Dr. Lucie Fonseca of [facility]. POS: OFF
--- NOTE | 2019-11-21 09:20 | RAD ---
CHEST 1 VIEW: HISTORY: Stents and line placement. COMPARISON: Radiograph from same day. FINDINGS: The right subclavian port catheter is in place with tip at the inferior SVC. Left subclavian central venous catheter has been placed with tip near the cavoatrial junction. No definite pneumothorax is appreciated. Concern for right upper lobe mass and right lower lobe consolidation. IMPRESSION: 1. Interval placement of a left subclavian central venous catheter with tip in good position. 2. Extensive lung consolidation. Underlying mass cannot be excluded. POS: HOME
[2019-11-21] MEDS ORDERED: Levothyroxine Sodium 100 MCG TAB PO SCH (09:45)
[2019-11-21 10:22] LABS: Anion Gap 17 mmol/L (10-20); BUN (Urea Nitrogen) 74 mg/dL (9.8-20.1); Calc. Creatinine Clearance 27 mL/min (70-130); Calcium 8.9 mg/dL (7.8-10.44); Carbon Dioxide 18 mmol/L (23-31); Chloride 109 mmol/L (98-107); Estimated GFR-MDRD 20; Glucose 76 mg/dL (80-115); Potassium 5.3 mmol/L (3.5-5.1); Sodium 139 mmol/L (136-145)
[2019-11-21] MEDS ORDERED: Norepinephrine 8 MG/0.9% NS 250 ML ONE (10:26)
[2019-11-21] MEDS ORDERED: Norepinephrine 8 MG/0.9% NS 250 ML IVPB SCH (10:30)
[2019-11-21] MEDS: Vecuronium 10 MG VIAL IVP PRN ×3 (10:40→18:00)
[2019-11-21] MEDS: Sodium Bicarbonate 140 MEQ in Dextrose 5% in Water 1,000 ML IV SCH (11:45)
[2019-11-21] MEDS: Hydrocortisone Sod Succ/PF 100 mg/2 ml Vial IVP SCH ×2 (11:46→18:00)
--- NOTE | 2019-11-21 11:46 | CON ---
DATE OF CONSULTATION: 11/21/2019 REASON FOR CONSULTATION: COVID-19 pneumonia and acute respiratory failure. HISTORY OF PRESENT ILLNESS: This is a 64-year-old female, who was admitted last night with acute respiratory failure requiring intubation and mechanical ventilation. She has been seen by Dr. Andrade in our group in the past dating back to 2005, most recently 2017. They actually called Dr. Andrade last night in the emergency room, he recommended prone ventilation, but as of 10:30 this morning, the patient still had not been placed in the prone position ventilation, so I have initiated that myself. PAST MEDICAL HISTORY: 1. Chronic obstructive pulmonary disease. 2. Hypertension. 3. Diabetes mellitus type 2. 4. Obstructive sleep apnea. 5. Crohn disease. 6. Transient ischemic attacks. 7. Chronic diastolic heart failure. 8. Pancreatitis. PAST SURGICAL HISTORY: 1. Cholecystectomy. 2. Hysterectomy with bilateral salpingo-oophorectomy. 3. Cardiac catheterization. 4. Cystoscopy. 5. Appendectomy. 6. EGD. 7. Small bowel resection. 8. Right middle finger surgery. 9. Lithotripsy. 10. Adhesiolysis. ALLERGIES: MORPHINE. FAMILY MEDICAL HISTORY: Remarkable for diabetes, heart disease. SOCIAL HISTORY: Apparently was smoking half pack per day when she was admitted in March. Does not consume alcohol or use illicit drugs. REVIEW OF SYSTEMS: Cannot be obtained as she is currently on mechanical ventilation. OUTPATIENT MEDICATIONS: 1. Clonidine. 2. Olanzapine. 3. Synthroid. 4. Gabapentin. 5. Fluoxetine. 6. Hydralazine. 7. Clonidine. 8. Torsemide. 9. Nifedipine. 10. Mirtazapine. 11. Lubiprostone. 12. Cozaar. 13. Labetalol. 14. Insulin. 15. Levemir. 16. Remicade. 17. Doxepin. 18. Calcitriol. 19. Rexulti. 20. Allopurinol. PHYSICAL EXAMINATION: VITAL SIGNS: Temperature 100.8, pulse 105, blood pressure 89/65, O2 saturation in the low 90s. GENERAL: She is currently in a supine position, sedated and paralyzed. HEENT: Dysconjugate gaze. NECK: No adenopathy or JVD. LUNGS: Coarse breath sounds. CARDIOVASCULAR: S1 and S2. Tachycardic. ABDOMEN: Soft and nontender. EXTREMITIES: No clubbing, cyanosis, or edema. She has a left subclavian central line. LABORATORY DATA: White blood cell count 7.5, hematocrit 45, platelet count 244. INR 1.1. D-dimer 12.0. pH of 7.25, pCO2 of 39, pO2 of 57 on a SIMV rate of 22, tidal volume 420, PEEP 10, pressure support 10, FiO2 of 100%. Sodium 139, potassium 5.3, chloride 109, CO2 of 18, BUN 74, creatinine 2.9, glucose 76. COVID serology was positive. X-ray shows diffuse bilateral infiltrates. ASSESSMENT: 1. COVID-19 pneumonia with acute hypoxic respiratory failure requiring mechanical ventilation. 2. History of diabetes mellitus type 2. 3. History of Crohn disease-on immunosuppressive medication. 4. Acute renal failure. 5. Hyperkalemia. 6. Hypotension. 7. Severe metabolic acidosis. PLAN: 1. The patient will be placed on a bicarbonate drip. 2. She will be given a dose of Kayexalate. 3. She will be placed in prone position ventilation and switched to pressure control ventilation. 4. I will switch the Decadron over to hydrocortisone as the previously prescribed Decadron dose was not high enough. 5. Pepcid for GI prophylaxis. 6. Heparin for DVT prophylaxis. 7. May need to consider Nephrology consult if hyperkalemia and her creatinine remain problematic. 8. Prognosis is extremely poor. Job ID: [id number]
[2019-11-21] MEDS: Gabapentin 300 MG CAP PO SCH ×2 (17:59→20:36)
[2019-11-21] MEDS: Heparin 5,000 UNITS/ML VIAL SC SCH ×2 (18:00→20:36)
[2019-11-21] MEDS ORDERED: OLANZapine 5 MG TAB PO SCH (21:00)
[2019-11-21] MEDS ORDERED: cloNIDine 0.3 MG TAB PO SCH (21:00)
[2019-11-22] MEDS: Cefepime 1 GM in Sodium Chloride 0.9% 100 ML IVPB SCH
[2019-11-22] MEDS: Propofol 1,000 MG/100 ML VIAL IV PRN ×5 (00:02→22:32)
--- NOTE | 2019-11-22 00:17 | CON ---
DATE OF CONSULTATION: 11/21/2019 SERVICE: Nephrology. CHIEF COMPLAINT: Mental status change. HISTORY OF PRESENT ILLNESS: A 64-year-old female, well known to me from prior hospitalization, brought into the hospital by EMS due to mental status change of decreased responsiveness. The patient with multiple comorbidities including Crohn's disease, hypertension, presumed primary hyperaldosteronism, chronic diastolic heart failure amongst others, was recently diagnosed with COVID infection/pneumonia on November 17, 2019. The patient was admitted at [facility] and was subsequently discharged on November 18 with home oxygen. She was reportedly doing well up until yesterday when she was noticed to be altered and having episodes of decreased responsiveness. Symptoms worsened and the patient was subsequently brought to the hospital late last night and was subsequently intubated. She was also found to be hypotensive requiring pressor support. The patient also was found to be hypokalemic on presentation, which was treated medically with improvement. She is currently intubated, sedated and mechanically ventilated. PHYSICAL EXAMINATION: VITAL SIGNS: Temperature 101.1, heart rate 100, respiratory rate 26, SpO2 97% on the ventilator with FiO2 of 70%, blood pressure is 113/87. GENERAL: Obese female, who is prone and mechanically ventilated. HEENT: Normocephalic, atraumatic. ET tube is in place. CARDIOVASCULAR: Regular rhythm and rate with normal heart sounds 1 and 2. Tachycardic. RESPIRATORY: Ventilator transmitted breath sounds heard in all lung zones. GI: Obese is and soft. Bowel sound is hypoactive. UROGENITAL: Quevedo catheter is in place draining some urine. EXTREMITIES: Grossly normal looking with no obvious erythema or edema appreciated. 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 DIAGNOSTIC DATA: CBC showed WBC count of 7.5, hemoglobin of 15.8, MCV of 96.2, platelets of 244. Coagulation panel showed PT 14.2, INR 1.1, PTT 34.9, and D-dimer 12.01. CMP on presentation showed potassium 6.3, chloride 107, CO2 16, BUN 71, creatinine 2.73, glucose 268, calcium 9.0 total bilirubin 0.4, AST 52, ALT 16, alkaline phosphatase 138, total protein 7.9, albumin 3.4. Initial lactic acid was 1.9. Initial troponin was 0.013 and initial BMP 56.9. Repeat chemistry showed sodium 139, potassium 5.3, chloride 109, CO2 18, BUN 74, creatinine 2.92, glucose 76, calcium 8.9. Urinalysis showed light yellow turbid urine with pH of 6.0, specific gravity of 1.015, urine protein 100 mg/dL. Negative ketone, normal glucose, negative nitrite, bilirubin, and negative leukocyte esterase. Microscopy showed no RBC, 0-3 WBC and 7-10 squamous cell. Initial arterial blood gas showed pH of 7.30, pO2 of 56.9, pCO2 of 36.6, ionized calcium of 1.26. Her blood gas was post intubation. Several hours later, repeat blood gas showed pH of 7.25, pCO2 of 39, pO2 of 57.9. Chest x-ray on presentation showed enlarging pleural effusion and worsening pulmonary edema. CT scan of the brain showed chronic parenchymal changes, but no acute intracranial abnormality. ASSESSMENT: 1. Acute respiratory failure: Due to COVID pneumonia and bilateral pleural effusion. 2. Acute encephalopathy. 3. Sepsis: Due to COVID pneumonia with possible secondary bacterial infection. 4. Septic shock requiring pressure support. 5. History of hypertension, now hypotensive. 6. History of Crohn's disease. 7. Hyperkalemia: Due to potassium shift related to severe metabolic acidosis. 8. Severe metabolic acidosis. 9. CKD with MOOK PLAN: 1. Continue sodium bicarbonate infusion at current rate. 2. Antimicrobial therapy as per primary attending and manager terminal. 3. Sedatives as well as pressure support and ventilator management as per manager terminal. 4. We will follow along and monitor electrolytes and treat as appropriate. 5. We will recheck renal function test in the morning. 6. The patient is critically ill with guarded prognosis. Job ID: [id number] [facility]
[2019-11-22] MEDS: Insulin Regular 300 UNITS/3 ML VIAL SC PRN ×6 (00:33→20:30)
[2019-11-22] MEDS ORDERED: Vancomycin 1 GM in Premix Bag 1 BAG IVPB SCH (01:00)
[2019-11-22 01:02] LABS: Vancomycin, Random 11.2 ug/mL (See Comment)
[2019-11-22] MEDS: Vancomycin HCl 750 MG in Sodium Chloride 0.9% 250 ML 250 ML IVPB SCH (01:28)
[2019-11-22] MEDS: Sodium Bicarbonate 140 MEQ in Dextrose 5% in Water 1,000 ML IV SCH ×2 (03:29→16:58)
[2019-11-22 04:26] LABS: Band 32 % (5-11); Hemoglobin 12.8 g/dL (12.0-16.0); Lymphocytes 3 % (21-51); MDiff Complete? YES; Mean Corpuscular HGB CONC 33.7 g/dL (32.0-36.0); Mean Corpuscular Hemoglobin 32.5 pg (27.0-31.0); Mean Corpuscular Volume 96.3 fL (78.0-98.0); Mean Platelet Volume 9.4 fL (7.4-10.4); Metamyelocyte 3 % (0-0); Monocytes 1 % (0-10); Neutrophil 61 % (42-75); Platelet Count 182 thou/uL (130-400); Platelet Morphology Comment Appears Adequate; RBC Distribution Width 14.6 % (11.5-14.5); RBC Morphology Normal; Red Blood Cell (RBC) Count 3.95 mill/uL (4.20-5.40); White Blood Cell (WBC) Count 12.3 thou/uL (4.8-10.8)
[2019-11-22 04:27] LABS: ALT (SGPT) 20 U/L (8-55); AST (SGOT) 59 U/L (5-34); Albumin 2.8 g/dL (3.4-4.8); Alkaline Phosphatase 173 U/L (40-110); Anion Gap 16 mmol/L (10-20); BUN (Urea Nitrogen) 74 mg/dL (9.8-20.1); Bilirubin, Total 0.8 mg/dL (0.2-1.2); Calc. Creatinine Clearance 26 mL/min (70-130); Calcium 8.4 mg/dL (7.8-10.44); Carbon Dioxide 22 mmol/L (23-31); Chloride 106 mmol/L (98-107); Estimated GFR-MDRD 19; Globulin 4.1 g/dL (2.4-3.5); Glucose 281 mg/dL (80-115); Potassium 4.4 mmol/L (3.5-5.1); Protein, Total 6.9 g/dL (6.0-8.3); Sodium 140 mmol/L (136-145)
[2019-11-22] MEDS: Hydrocortisone Sod Succ/PF 100 mg/2 ml Vial IVP SCH ×4 (05:39→16:58)
[2019-11-22] MEDS: Levothyroxine Sodium 100 MCG TAB PO SCH (05:39)
--- NOTE | 2019-11-22 07:51 | RAD ---
XR Chest 1 View Portable History: Pneumonia Comparison: Radiograph prior day Findings: Endotracheal tube tip just below the level of the clavicles. A right subclavian central truong ous catheter tip projects over the mid SVC. Left subclavian central venous catheter tip projects over the inferior SVC. Extensive airspace opacities are similar. Enteric tube tip below diaphragm although out of field of v iew. Masslike consolidation right upper lobe. Impression: Similar examination of the chest.
[2019-11-22 07:55] LABS: Actual Bicarbonate (HCO3a) 22.4 mEq/L (22-28); Base Excess (BEa) -1.7 mEq/L (-2.0 to +3.0); CO2 Tension 35.8 mmHg (35.0-45.0); Calcium, Ionized (arterial) 1.12 mmol/L (1.12-1.30); Carboxyhemoglobin (COHb) 0.1 gm% (0.0-3.0); Hemoglobin (Hb) 13.4 g/dL (12.0-16.0); O2 Tension (PaO2), arterial 74.7 mmHg (> 80.0); Potassium - ABG Lab 4.32 mmol/L (3.70-5.30); Puncture Site LRA; pH, Arterial 7.41 (7.35-7.45)
[2019-11-22] MEDS: Famotidine/PF 20 mg/2ml Vial SLOW IVP SCH (09:18)
[2019-11-22] MEDS: Gabapentin 300 MG CAP PO SCH ×3 (09:18→20:02)
[2019-11-22] MEDS: Vecuronium 10 MG VIAL IVP PRN ×2 (09:18→15:55)
[2019-11-22] MEDS: FLUoxetine HCl 20 MG CAP PO SCH (09:18)
[2019-11-22] MEDS: Heparin 5,000 UNITS/ML VIAL SC SCH ×3 (09:18→20:01)
--- NOTE | 2019-11-22 12:31 | PDOC.HOSPP ---
- Subjective Encounter Date: 11/22/19 non-verbal (Intubated and sedated) - Objective Vital Signs & Weight: Vital Signs (12 hours) Temp Pulse Resp BP Pulse Ox 11/22/19 11:15 92 130/91 H 11/22/19 10:00 26 H 11/22/19 08:00 98.3 F 98 11/22/19 07:55 26 H 11/22/19 07:44 94 113/75 11/22/19 06:00 26 H 11/22/19 04:00 98.7 F 26 H 11/22/19 02:26 100 126/88 11/22/19 02:00 26 H Weight Weight 197 lb 8.547 oz Most Recent Monitor Data Heart Rate from ECG 92 NIBP 130/91 NIBP BP-Mean 104 Respiration from ECG 26 SpO2 97 I&O: 11/21/19 11/22/19 11/23/19 06:59 06:59 06:59 Intake Total 2487.6 Output Total 150 975 125 Balance -150 1512.6 -125 Result Diagrams: 11/22/19 03:40 11/22/19 03:40 Additional Labs: Accuchecks 11/22/19 11/22/19 11/21/19 03:41 00:15 21:14 POC Glucose 269 H 303 H 325 H 11/21/19 11/21/19 11/21/19 16:24 14:57 12:08 POC Glucose 231 H 203 H 136 H Hospitalist ROS - Medication Medications: Active Medications Generic Name Dose Route Start Last Admin Trade Name Freq PRN Reason Stop Dose Admin Acetaminophen 650 mg 11/21/19 05:39 11/21/19 13:23 Tylenol [place] 650 mg Q6H PRN Administration Fever > 101 or Mild Pain Dextrose/Water 25 gm 11/21/19 04:06 11/21/19 04:21 Dextrose 50% SLOW IVP 25 gm PRN PRN Administration Hypoglycemia Famotidine 20 mg 11/21/19 09:00 11/22/19 09:18 Pepcid SLOW IVP 20 mg DAILY JOSSY Administration Fluoxetine HCl 60 mg 11/22/19 09:00 11/22/19 09:18 Prozac PO 60 mg DAILY JOSSY Administration Gabapentin 600 mg 11/21/19 15:00 11/22/19 09:18 Neurontin PO 600 mg TID JOSSY Administration Heparin Sodium (Porcine) 5,000 units 11/21/19 15:00 11/22/19 09:18 Heparin SC 5,000 units TID JOSSY Administration Hydrocortisone Sodium Succinate 100 mg 11/21/19 12:00 11/22/19 05:39 Solu-Cortef IVP 100 mg Q6HR JOSSY Administration Fentanyl Citrate 2,000 mcg/ 100 mls @ 0 mls/hr 11/21/19 00:42 11/21/19 06:33 Sodium Chloride IV 12/21/19 00:42 100 mls INF JOSSY Administration Protocol Per Protocol Cefepime HCl 1 gm/ Sodium 100 mls @ 200 mls/hr 11/22/19 01:00 11/22/19 00:00 Chloride IVPB 100 mls Q24HR JOSSY Administration Sodium Bicarbonate 140 meq/ 1,140 mls @ 75 mls/hr 11/21/19 10:30 11/22/19 03: 29 Dextrose/Water IV 1,140 mls .[id number] JOSSY Administration Vancomycin HCl 750 mg/ Sodium 250 mls @ 250 mls/hr 11/22/19 02:00 11/22/19 01 :28 Chloride IVPB 250 mls 0200 JOSSY Administration Insulin Human Regular 0 units 11/21/19 04:06 11/22/19 04:33 Humulin R SC 4 unit .MILD SLIDING SCALE PRN Administration Mild Correctional Scale Levothyroxine Sodium 100 mcg 11/22/19 06:00 11/22/19 05:39 Synthroid PO 100 mcg 0600 JOSSY Administration Lorazepam 2 mg 11/21/19 02:24 11/21/19 04:21 Ativan SLOW IVP 12/21/19 02:24 2 mg Q1H PRN Administration Breakthrough agitation Morphine Sulfate 2 mg 11/21/19 02:24 11/21/19 05:38 Morphine SLOW IVP 12/21/19 02:24 2 mg Q1H PRN Administration Breakthrough Pain/Agitation Propofol 1,000 mg 11/21/19 02:24 11/22/19 09:17 Diprivan IV 12/21/19 02:24 1,000 mg INF PRN Administration TO ACHIEVE GOAL RASS Protocol Vecuronium [place] 10 mg 11/21/19 10:31 11/22/19 09:18 Norcuron IVP 10 mg Q30MIN PRN Administration NEUROMUSCULAR BLOCKADE - Exam General - other findings: This is deferred. Hosp A/P (1) Acute respiratory failure with hypoxia Code(s): J96.01 - ACUTE RESPIRATORY FAILURE WITH HYPOXIA Status: Acute (2) Pneumonia due to COVID-19 virus Code(s): U07.1 - COVID-19; J12.89 - OTHER VIRAL PNEUMONIA Status: Acute (3) Metabolic acidosis Code(s): E87.2 - ACIDOSIS Status: Acute (4) Acute worsening of stage 3 chronic kidney disease Code(s): N18.3 - CHRONIC KIDNEY DISEASE, STAGE 3 (MODERATE) Status: Acute (5) Diastolic heart failure Code(s): I50.30 - UNSPECIFIED DIASTOLIC (CONGESTIVE) HEART FAILURE Status: Chronic Qualifiers: (6) Hypertension Code(s): I10 - ESSENTIAL (PRIMARY) HYPERTENSION Status: Chronic Qualifiers: (7) Obesity Code(s): E66.9 - OBESITY, UNSPECIFIED Status: Chronic (8) Hyperkalemia Code(s): E87.5 - HYPERKALEMIA Status: Resolved - Plan Acute respiratory failure with hypoxia due to COVID-19 infection. The patient is on mechanical ventilation. She is also proned. Hyperkalemia metabolic acidosis improved. Creatinine level is trending up. We will continue management per critical care team and nephrology.
--- NOTE | 2019-11-22 14:49 | PRG ---
DATE OF SERVICE: 11/22/2019 SUBJECTIVE: Ms. Mosqueda is clinically stable. Her hemodynamics have been stable. OBJECTIVE: VITAL SIGNS: Heart rates in the 90s, blood pressure 120/87, respiratory rates in the 20s, oximetry is in the low 90s. LUNGS: Unchanged. HEART: Unchanged. ABDOMEN: Unchanged. LABORATORY DATA: White count 12.3, hemoglobin 12.8, platelets 182. Sodium 140, potassium 4.4, chloride 106, bicarb 22, BUN 74, creatinine 3.03. Creatinine was 2.92 yesterday, 2.73 the day before. IMPRESSION: COVID pneumonia, clinically stable, mechanical ventilation. We will continue with supportive care. She is currently not weanable. Critical care time 30 min. Job ID: [id number] [facility]
[2019-11-22] MEDS: fentaNYL Citrate/PF 2,000 MCG in Sodium Chloride 0.9% 60 ML IV SCH (17:25)
--- NOTE | 2019-11-22 19:46 | PRG ---
DATE OF SERVICE: 11/22/2019 SERVICE: Nephrology. SUBJECTIVE: A 64-year-old female, seen in followup for acute on chronic renal failure and electrolyte derangements. The patient was admitted due to acute respiratory failure as well as mental status change related to COVID pneumonia. Still intubated and mechanically ventilated. Hemodynamics have improved and pressors have been weaned off. OBJECTIVE: VITAL SIGNS: Temperature 97.9, pulse 89, respiratory rate 26, blood pressure 123/85, SpO2 of 97% on the ventilator. I and O in the last 24 hours showed total intake of 2487 with output of 975 with urine contributing 825 mL. GENERAL: Obese female, in no obvious distress. Sedated. HEENT: Normocephalic, atraumatic. ET tube is in place. CARDIOVASCULAR: Regular rhythm and rate with normal heart sounds 1 and 2. RESPIRATORY: Ventilator transmitted breath sounds heard in all lung zones. GASTROINTESTINAL: Obese, soft, and nondistended. UROGENITAL: Quevedo catheter is in place draining urine. EXTREMITIES: Grossly normal looking, atraumatic with no obvious edema or erythema. 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 DIAGNOSTIC DATA: CBC showed WBC count of 12.3, hemoglobin of 12.8, platelets of 182. Chemistry showed sodium 140, potassium 4.4, chloride 106, CO2 of 22, BUN 74, creatinine 3.03, glucose 281, calcium 8.6, total bilirubin 0.8, AST 59, ALT 20, alkaline phosphatase 173, total protein 6.9, albumin 2.8. Arterial blood gases this morning showed pH of 7.4, pCO2 of 35.8, PO2 of 74.9, ionized calcium 1.12. Chest x-ray earlier today showed extensive airspace opacities which are similar of previous radiographs. ASSESSMENT: 1. Acute kidney injury: Most likely due to hemodynamic factors related to septic shock. 2. Chronic kidney disease stage 4. 3. Metabolic acidosis: Improved with bicarb infusion. 4. Hyperkalemia: Resolved. 5. Shock: Clinically improved. Currently off pressors. 6. Acute respiratory failure requiring intubation. PLAN: We will continue bicarb infusion and monitor intake and output. We will also monitor renal function as well as intake and output. Further treatment as per wool washer feeder. Job ID: [id number]
[2019-11-22] MEDS ORDERED: Sterile Water 0 ML ONE (19:58)
[2019-11-23] MEDS: Hydrocortisone Sod Succ/PF 100 mg/2 ml Vial IVP SCH ×4 (00:02→17:51)
[2019-11-23] MEDS: Cefepime 1 GM in Sodium Chloride 0.9% 100 ML IVPB SCH (00:02)
[2019-11-23] MEDS: Insulin Regular 300 UNITS/3 ML VIAL SC PRN ×6 (00:46→20:57)
[2019-11-23 01:10] LABS: Vancomycin, Trough 13.3 ug/mL
[2019-11-23] MEDS: Vancomycin HCl 750 MG in Sodium Chloride 0.9% 250 ML 250 ML IVPB SCH (02:01)
[2019-11-23 04:28] LABS: Band 15 % (5-11); Hemoglobin 12.4 g/dL (12.0-16.0); Lymphocytes 3 % (21-51); MDiff Complete? YES; Mean Corpuscular HGB CONC 34.4 g/dL (32.0-36.0); Mean Corpuscular Hemoglobin 33.2 pg (27.0-31.0); Mean Corpuscular Volume 96.5 fL (78.0-98.0); Mean Platelet Volume 9.3 fL (7.4-10.4); Neutrophil 82 % (42-75); Platelet Count 199 thou/uL (130-400); Platelet Morphology Comment Appears Adequate; RBC Distribution Width 14.5 % (11.5-14.5); Red Blood Cell (RBC) Count 3.74 mill/uL (4.20-5.40); White Blood Cell (WBC) Count 13.3 thou/uL (4.8-10.8)
[2019-11-23 04:38] LABS: ALT (SGPT) 19 U/L (8-55); AST (SGOT) 41 U/L (5-34); Albumin 2.5 g/dL (3.4-4.8); Alkaline Phosphatase 201 U/L (40-110); Anion Gap 18 mmol/L (10-20); BUN (Urea Nitrogen) 82 mg/dL (9.8-20.1); Bilirubin, Total 0.7 mg/dL (0.2-1.2); Calc. Creatinine Clearance 30 mL/min (70-130); Calcium 8.4 mg/dL (7.8-10.44); Carbon Dioxide 27 mmol/L (23-31); Chloride 99 mmol/L (98-107); Estimated GFR-MDRD 22; Globulin 4.3 g/dL (2.4-3.5); Glucose 263 mg/dL (80-115); Protein, Total 6.8 g/dL (6.0-8.3); Sodium 141 mmol/L (136-145)
[2019-11-23] MEDS: Levothyroxine Sodium 100 MCG TAB PO SCH (05:32)
--- NOTE | 2019-11-23 07:45 | RAD ---
Exam: Chest one view HISTORY:Pneumonia Comparison: 11/22/2019 FINDINGS: Cardiac silhouette:Stable cardiomegaly Lines and tubes: Stable endotracheal tube, bilateral vascular catheters via subclavian approach and n asogastric tube. Aorta: Unremarkable Pulmonary vessels: Normal Costophrenic angles: Right-sided pleural effusion. Minimal thickening of the minor fissure LUNGS: Scattered interstitial and alveolar opacities. Persistent more focal opacification the right u pper lobe. Pneumothorax: None Osseous abnormalities: None IMPRESSION: No significant interval change. Multi lobar pneumonia.
[2019-11-23] MEDS: Sodium Bicarbonate 140 MEQ in Dextrose 5% in Water 1,000 ML IV SCH (08:32)
[2019-11-23] MEDS: Heparin 5,000 UNITS/ML VIAL SC SCH ×3 (08:32→20:19)
[2019-11-23] MEDS: Famotidine/PF 20 mg/2ml Vial SLOW IVP SCH (08:33)
[2019-11-23] MEDS: FLUoxetine HCl 20 MG CAP PO SCH (08:33)
[2019-11-23] MEDS: Gabapentin 300 MG CAP PO SCH ×3 (08:33→20:21)
[2019-11-23] MEDS: Propofol 1,000 MG/100 ML VIAL IV PRN ×2 (09:01→14:56)
--- NOTE | 2019-11-23 13:10 | PDOC.HOSPP ---
- Subjective Encounter Date: 11/23/19 Subjective: Patient remains intubated. - Objective Vital Signs & Weight: Vital Signs (12 hours) Temp Pulse Resp BP Pulse Ox 11/23/19 10:59 69 159/105 H 11/23/19 10:00 26 H 11/23/19 08:10 80 149/100 H 11/23/19 08:00 98.5 F 26 H 95 11/23/19 06:00 26 H 11/23/19 04:00 97.8 F 26 H 11/23/19 02:16 81 11/23/19 02:00 26 H Weight Admit Weight 197 lb Weight 198 lb 13.711 oz Most Recent Monitor Data Heart Rate from ECG 70 NIBP 165/104 NIBP BP-Mean 124 Respiration from ECG 26 SpO2 96 I&O: 11/22/19 11/23/19 11/24/19 06:59 06:59 06:59 Intake Total 2487.6 2997 70 Output Total 975 1395 320 Balance 1512.6 1602 -250 Result Diagrams: 11/23/19 04:00 11/23/19 04:00 Additional Labs: Accuchecks 11/23/19 11/23/19 11/23/19 12:27 04:01 00:36 POC Glucose 331 H 253 H 263 H 11/22/19 11/22/19 11/22/19 20:18 17:15 12:01 POC Glucose 314 H 255 H 252 H 11/22/19 09:45 POC Glucose 249 H Hospitalist ROS - Medication Medications: Active Medications Generic Name Dose Route Start Last Admin Trade Name Freq PRN Reason Stop Dose Admin Acetaminophen 650 mg 11/21/19 05:39 11/21/19 13:23 Tylenol HI 650 mg Q6H PRN Administration Fever > 101 or Mild Pain Dextrose/Water 25 gm 11/21/19 04:06 11/21/19 04:21 Dextrose 50% SLOW IVP 25 gm PRN PRN Administration Hypoglycemia Famotidine 20 mg 11/21/19 09:00 11/23/19 08:33 Pepcid SLOW IVP 20 mg DAILY JOSSY Administration Fluoxetine HCl 60 mg 11/22/19 09:00 11/23/19 08:33 Prozac PO 60 mg DAILY JOSSY Administration Gabapentin 600 mg 11/21/19 15:00 11/23/19 08:33 Neurontin PO 600 mg TID JOSSY Administration Heparin Sodium (Porcine) 5,000 units 11/21/19 15:00 11/23/19 08:32 Heparin SC 5,000 units TID JOSSY Administration Hydrocortisone Sodium Succinate 100 mg 11/21/19 12:00 11/23/19 11:08 Solu-Cortef IVP 100 mg Q6HR JOSSY Administration Fentanyl Citrate 2,000 mcg/ 100 mls @ 0 mls/hr 11/21/19 00:42 11/22/19 17:25 Sodium Chloride IV 12/21/19 00:42 100 mls INF JOSSY Administration Protocol Per Protocol Cefepime HCl 1 gm/ Sodium 100 mls @ 200 mls/hr 11/22/19 01:00 11/23/19 00:02 Chloride IVPB 100 mls Q24HR JOSSY Administration Sodium Bicarbonate 140 meq/ 1,140 mls @ 75 mls/hr 11/21/19 10:30 11/23/19 08: 32 Dextrose/Water IV 1,140 mls .[id number] JOSSY Administration Vancomycin HCl 750 mg/ Sodium 250 mls @ 250 mls/hr 11/22/19 02:00 11/23/19 02 :01 Chloride IVPB 250 mls 0200 JOSSY Administration Insulin Human Regular 0 units 11/21/19 04:06 11/23/19 09:00 Humulin R SC 4 unit .MILD SLIDING SCALE PRN Administration Mild Correctional Scale Levothyroxine Sodium 100 mcg 11/22/19 06:00 11/23/19 05:32 Synthroid PO 100 mcg 0600 JOSSY Administration Lorazepam 2 mg 11/21/19 02:24 11/21/19 04:21 Ativan SLOW IVP 12/21/19 02:24 2 mg Q1H PRN Administration Breakthrough agitation Morphine Sulfate 2 mg 11/21/19 02:24 11/21/19 05:38 Morphine SLOW IVP 12/21/19 02:24 2 mg Q1H PRN Administration Breakthrough Pain/Agitation Propofol 1,000 mg 11/21/19 02:24 11/23/19 09:01 Diprivan IV 12/21/19 02:24 1,000 mg INF PRN Administration TO ACHIEVE GOAL RASS Protocol Vecuronium [place] 10 mg 11/21/19 10:31 11/22/19 15:55 Norcuron IVP 10 mg Q30MIN PRN Administration NEUROMUSCULAR BLOCKADE Hosp A/P (1) Acute respiratory failure with hypoxia Code(s): J96.01 - ACUTE RESPIRATORY FAILURE WITH HYPOXIA Status: Acute (2) Pneumonia due to COVID-19 virus Code(s): U07.1 - COVID-19; J12.89 - OTHER VIRAL PNEUMONIA Status: Acute (3) Metabolic acidosis Code(s): E87.2 - ACIDOSIS Status: Acute (4) Acute worsening of stage 3 chronic kidney disease Code(s): N18.3 - CHRONIC KIDNEY DISEASE, STAGE 3 (MODERATE) Status: Acute (5) Diastolic heart failure Code(s): I50.30 - UNSPECIFIED DIASTOLIC (CONGESTIVE) HEART FAILURE Status: Chronic Qualifiers: (6) Hypertension Code(s): I10 - ESSENTIAL (PRIMARY) HYPERTENSION Status: Chronic Qualifiers: (7) Obesity Code(s): E66.9 - OBESITY, UNSPECIFIED Status: Chronic (8) Hyperkalemia Code(s): E87.5 - HYPERKALEMIA Status: Resolved - Plan Acute respiratory failure with hypoxia due to COVID-19 infection. The patient is on mechanical ventilation. She is requiring high PEEP Metabolic acidosis resolved. The patient is hypokalemic today. Replacement was ordered. Renal function improving. We will continue management per critical care team and nephrology.
--- NOTE | 2019-11-23 13:13 | PRG ---
DATE OF SERVICE: 11/23/2019 SERVICE: Nephrology. SUBJECTIVE: A 64-year-old female with known history of lwcvpsxet-bt-kekooqg secondary hypertension due to primary hyperaldosteronism, Crohn disease, and CKD 3-4, admitted due to mental status changes and respiratory failure. Nephrology is seeing the patient for acute kidney injury superimposed on chronic kidney disease as well as electrolyte derangements. The patient is still intubated and mechanically ventilated. Making good amount of urine and saturating well on the vent. Blood pressure however is noted to be creeping up since weaning off pressors yesterday. OBJECTIVE: VITAL SIGNS: Temperature 98.5, pulse 76, respiratory rate 26, SpO2 of 99 on the ventilator, blood pressure is 155/101. I's and O's in the last 24 hours showed total intake of 2997 with output of 1295. GENERAL: Sedated female, in no obvious distress. Afebrile and acyanotic. HEENT: Normocephalic and atraumatic. ET tube and NG tubes are in place. NECK: Supple with no obvious JVD. CARDIOVASCULAR: Regular rhythm and rate with normal heart sounds 1 and 2. RESPIRATORY: Ventilator transmitted breath sounds heard in all lung zones. GI: Obese, soft, nondistended with hypoactive bowel sounds. UROGENITAL: Quevedo catheter is in place draining urine. EXTREMITIES: Grossly normal looking, atraumatic with no edema. [employer]: Sedated. DIAGNOSTIC DATA: CBC today showed WBC count of 13.3, hemoglobin of 12.4, MCV of 96.5, platelets of 199. Chemistry today showed sodium of 141, potassium 3.0, chloride 99, CO2 of 27, BUN 82, creatinine 2.64, glucose 263, calcium 8.4, total bilirubin 0.7, AST 41, ALT 19, alkaline phosphatase 201, total protein 6.8, albumin 2.5. Blood cultures collected on November 20 is growing Staphylococcus aureus in 2 out 2 bottles, which are pansensitive (MSSA). ASSESSMENT: 1. Acute kidney injury: Due to hemodynamic factors related to septic shock. Creatinine is trending downwards. 2. Chronic kidney disease, stage 4. 3. Septic shock: Due to Staph bacteremia superimposed on COVID infection. Improved, currently off pressors. 4. Hypertension: The patient has qeyihagfl-di-jtqcxnc hypertension, which is related to primary hyperaldosteronism. At baseline, she is on at least five antihypertensives including clonidine patch, nifedipine, losartan, hydralazine, and labetalol. The patient also is on spironolactone for primary hyperaldosteronism. 5. Primary hyperaldosteronism. 6. Hypokalemia. 7. Acute respiratory failure with hypoxia, now intubated. PLAN: 1. We will replete serum potassium with 40 mEq of potassium chloride. 2. We will also restart clonidine patch to prevent rebound hypertension related to clonidine withdrawal. 3. We will also restart spironolactone. 4. We will monitor blood pressure and restart other antihypertensives as indicated. 5. Avoid nephrotoxic agents including losartan at this point. 6. Due to blood pressure and improving renal function and commencement of tube feeding, sodium bicarbonate infusion can be discontinued. We defer to technician test systems, however. 7. Antimicrobial and further evaluation of Staph bacteremia as per primary attending. 8. We will recheck renal function test in the morning. Further treatment to follow depending on hospital course. Job ID: [id number]
[2019-11-23] MEDS: cloNIDine 0.3mg/24 Hour PATCH TD SCH (13:35)
[2019-11-23] MEDS: Sodium Chloride 0.45% 1,000 ML IV SCH (14:01)
[2019-11-23] MEDS: hydrALAZINE 25 MG TAB PO SCH ×2 (14:53→20:21)
[2019-11-23] MEDS: Labetalol 100 MG TAB PO SCH ×2 (14:54→20:21)
--- NOTE | 2019-11-23 16:24 | PRG ---
DATE OF SERVICE: 11/23/2019 SUBJECTIVE: Ronda Mosqueda remains mechanically ventilated. OBJECTIVE: VITAL SIGNS: Heart rate is in 70s, blood pressure 163/107, respiratory rate is 26. LUNGS: Unchanged. HEART: Unchanged. ABDOMEN: Unchanged. LABORATORY DATA: White count 13.3, hemoglobin 12.4, platelets 199. Sodium 141, potassium 3, chloride 99, bicarb 27, BUN 82, creatinine 2.64, glucose 263. IMPRESSION AND PLAN: 1. COVID pneumonia, on mechanical ventilation. 2. Cnnvd-mk-cauadsf kidney disease. She remains on empiric antimicrobial therapy. 3. Chronic obstructive pulmonary disease exacerbation. 4. Diabetes. 5. History of Crohn's. Her bicarbonate drip has been discontinued. She is on heparin, DVT prophylaxis. I do believe that she needs to continue with vancomycin, given that she has bacteremia with Staph. Assistance with Infectious Disease might be helpful. She will need an echocardiogram at some point. Reviewing her medications, she is on high-dose IV hydrocortisone. We will continue supportive care. Critical care time 30 min. Job ID: [id number] MTDD
[2019-11-23] MEDS: OLANZapine 5 MG TAB PO SCH (20:19)
[2019-11-24] MEDS: Propofol 1,000 MG/100 ML VIAL IV PRN ×4 (00:33→22:48)
[2019-11-24] MEDS: Hydrocortisone Sod Succ/PF 100 mg/2 ml Vial IVP SCH ×2 (00:33→05:17)
[2019-11-24] MEDS: Cefepime 1 GM in Sodium Chloride 0.9% 100 ML IVPB SCH (00:34)
[2019-11-24] MEDS: Insulin Regular 300 UNITS/3 ML VIAL SC PRN ×3 (00:53→08:51)
[2019-11-24 01:11] LABS: Vancomycin, Random 15.5 ug/mL (See Comment)
[2019-11-24] MEDS: Sodium Chloride 0.45% 1,000 ML IV SCH ×2 (02:51→16:01)
[2019-11-24] MEDS: Vancomycin 1 GM in Premix Bag 1 BAG IVPB SCH (02:51)
[2019-11-24 03:59] LABS: ALT (SGPT) 15 U/L (8-55); AST (SGOT) 20 U/L (5-34); Albumin 2.6 g/dL (3.4-4.8); Alkaline Phosphatase 204 U/L (40-110); Anion Gap 18 mmol/L (10-20); BUN (Urea Nitrogen) 96 mg/dL (9.8-20.1); Bilirubin, Total 0.5 mg/dL (0.2-1.2); Calc. Creatinine Clearance 34 mL/min (70-130); Calcium 8.6 mg/dL (7.8-10.44); Carbon Dioxide 27 mmol/L (23-31); Chloride 97 mmol/L (98-107); Estimated GFR-MDRD 25; Globulin 4.6 g/dL (2.4-3.5); Glucose 373 mg/dL (80-115); Magnesium 2.5 mg/dL (1.6-2.6); Potassium 3.4 mmol/L (3.5-5.1); Protein, Total 7.2 g/dL (6.0-8.3); Sodium 139 mmol/L (136-145)
[2019-11-24] MEDS ORDERED: hydrALAZINE 20 MG/ML VIAL SLOW IVP SCH ×3 (05:00→07:15)
[2019-11-24 05:08] LABS: Band 11 % (5-11); Hemoglobin 12.6 g/dL (12.0-16.0); Lymphocytes 5 % (21-51); MDiff Complete? YES; Mean Corpuscular HGB CONC 34.6 g/dL (32.0-36.0); Mean Corpuscular Hemoglobin 33.7 pg (27.0-31.0); Mean Corpuscular Volume 97.4 fL (78.0-98.0); Mean Platelet Volume 9.9 fL (7.4-10.4); Monocytes 1 % (0-10); Neutrophil 83 % (42-75); Platelet Count 211 thou/uL (130-400); Platelet Morphology Comment Appears Adequate; RBC Distribution Width 14.4 % (11.5-14.5); RBC Morphology Normal; Red Blood Cell (RBC) Count 3.73 mill/uL (4.20-5.40); White Blood Cell (WBC) Count 13.1 thou/uL (4.8-10.8)
[2019-11-24] MEDS: Levothyroxine Sodium 100 MCG TAB PO SCH (05:17)
[2019-11-24] MEDS ORDERED: Spironolactone 25 MG TAB PO SCH (08:00)
[2019-11-24] MEDS: hydrALAZINE 25 MG TAB PO SCH ×3 (08:00→20:53)
[2019-11-24] MEDS: Heparin 5,000 UNITS/ML VIAL SC SCH ×3 (08:01→20:52)
[2019-11-24] MEDS: Gabapentin 300 MG CAP PO SCH ×3 (08:01→20:53)
[2019-11-24] MEDS: Labetalol 100 MG TAB PO SCH ×3 (08:01→20:53)
[2019-11-24] MEDS: Famotidine 20 MG TAB PO SCH (08:01)
[2019-11-24] MEDS: FLUoxetine HCl 20 MG CAP PO SCH (08:01)
--- NOTE | 2019-11-24 08:29 | RAD ---
CHEST 1 VIEW: INDICATION: A 64-year-old female with pneumonia. COMPARISON: Prior exam dated 11/23/2019. FINDINGS: The patient is intubated with gastric catheter placement.. Right chest wall port and left subclavian central venous catheter are stable-appearing. Right lower lobe and left lower lobe pneumonia persis t. No definite pneumothorax is evident. IMPRESSION: Stable exam. POS: BH
[2019-11-24] MEDS ORDERED: Amlodipine 10 MG TAB PO SCH (08:30)
[2019-11-24] MEDS ORDERED: Hydrocortisone Sod Succ/PF 100 mg/2 ml Vial IVP SCH (09:00)
[2019-11-24] MEDS: niCARdipine 50 MG in Sodium Chloride 0.9% 250 ML 230 ML IV SCH ×3 (10:08→22:48)
[2019-11-24] MEDS ORDERED: Insulin Glargine 20 UNITS in Pre-Filled Syringe 1 EACH SC SCH (10:45)
[2019-11-24] MEDS: HumaLOG 300 UNITS/3 ML VIAL SC PRN ×3 (12:45→21:20)
--- NOTE | 2019-11-24 15:11 | PRG ---
DATE OF SERVICE: 11/24/2019 SERVICE: Nephrology. SUBJECTIVE: A 64-year-old female with CKD, hypertension, and primary hyperaldosteronism, admitted due to respiratory distress, and mental status change. Nephrology is seeing the patient for acute on chronic renal failure and hypertension. The patient is still intubated and mechanically ventilated. Had developed markedly elevated blood pressure despite oral antihypertensives, hence Cardene infusion was started. OBJECTIVE: VITAL SIGNS: Temperature 99.2, pulse 92, respiratory rate 26, SpO2 of 93% on the mechanical ventilator, blood pressure is 197/115. I and O in the last 24 hours showed a total intake of 3155 with output of 1788 urine. GENERAL: Obese female, in no obvious distress. HEENT: Normocephalic, atraumatic. ET tube and NG tube are in place. CARDIOVASCULAR: Regular rhythm and rate with normal heart sounds 1 and 2. RESPIRATORY: Ventilator transmitted breath sounds heard in all lung zones. GI: Obese, soft, nondistended with normal bowel sound. UROGENITAL: Quevedo catheter is in place draining urine. EXTREMITIES: Grossly normal looking atraumatic with no edema or erythema. TUBE FILLER: Sedated. DIAGNOSTIC DATA: CBC showed WBC count of 13.1, hemoglobin of 12.6, platelet of 211. Chemistry showed sodium 139, potassium 3.4, chloride 97, CO2 of 27, BUN 96, creatinine 2.37, glucose 373, calcium 8.6, magnesium 2.5, total bilirubin 0.5, AST 20, ALT 15, alkaline phosphatase 204, total protein 7.2, albumin 2.6. ASSESSMENT: 1. Accelerated hypertension: This is due to rebound, related to discontinued clonidine in a patient who has a primary hyperaldosteronism with poorly controlled hypertension. Despite restart on most of antihypertensives, blood pressure is still grossly uncontrolled with systolic running around 200, hence Cardene drip was started. Blood pressure is better with commencement of Cardene infusion. 2. Acute kidney injury: Improving. This is due to hemodynamic factors related to septic shock. 3. Chronic kidney disease, stage 4. 4. Metabolic acidosis improved. 5. Worsening azotemia given BUN that is trending up: This is most likely related to steroid therapy as well as high protein diet in a patient with acute on chronic renal failure. 6. Hypokalemia. 7. Primary hyperaldosteronism. 8. Coronavirus disease infection with pneumonia. 9. Staphylococcus aureus bacteremia. PLAN: 1. We will decrease steroid therapy. We will recommend weaning these off if possible due to worsening azotemia. 2. We will also decrease the protein intake. 3. Continue antihypertensives per tube. 4. Wean Cardene drip as tolerated. 5. Continue with spironolactone for primary aldosteronism. 6. Monitor electrolytes. 7. Treatment to follow depending on hospital course. Job ID: [id number]
[2019-11-24] MEDS: Acetaminophen 650 MG/20.3 ML UDCUP PER TUBE PRN (16:47)
--- NOTE | 2019-11-24 18:00 | PRG ---
DATE OF SERVICE: 11/24/2019 SUBJECTIVE: Ronda Mosqueda remains sedated for ventilation. OBJECTIVE: VITAL SIGNS: Heart rates in the 80s, blood pressure 135/79, respiratory rate is 26, oximetry is 92. LUNGS: Unchanged. HEART: Unchanged. ABDOMEN: Unchanged. LABORATORY DATA: White count 13.1, hemoglobin 12.6, platelets 211. Sodium 139, potassium 3.4, chloride 97, bicarb 27, BUN 96, creatinine 2.37, glucose 373. PH 7.41, CO2 of 35 PO2 of 74. IMPRESSION: 1. COVID pneumonia, clinically stable. 2. Acute on chronic kidney disease. She needs to continue with high-dose steroids for pneumonia. She has been switched from IV cortisone to Solu-Medrol. Need to see if her D-dimer is going up and if it is, she needs to be heparinized. Glucose control is still an issue. Her blood sugars have been 300 to 400 range. Critical care time 30 min. Job ID: [id number] MTDD
--- NOTE | 2019-11-24 19:07 | PDOC.HOSPP ---
- Subjective Encounter Date: 11/24/19 Subjective: Remains on the vent. The patient blood pressure was uncontrolled this morning. - Objective Vital Signs & Weight: Vital Signs (12 hours) Temp Pulse Resp BP Pulse Ox 11/24/19 18:00 100.0 F H 26 H 11/24/19 16:00 100.3 F H 91 26 H 11/24/19 14:44 92 144/88 H 11/24/19 14:43 92 145/88 H 11/24/19 14:00 26 H 11/24/19 12:00 99.8 F H 26 H 11/24/19 10:45 96 11/24/19 10:00 26 H 11/24/19 08:53 94 201/120 H 11/24/19 08:11 93 11/24/19 08:01 92 198/118 H 11/24/19 08:00 99.2 F 92 26 H 198/118 H 93 L 11/24/19 07:12 85 215/121 H Weight Admit Weight 197 lb Weight 196 lb Most Recent Monitor Data Heart Rate from ECG 89 NIBP 140/83 NIBP BP-Mean 102 Respiration from ECG 26 SpO2 91 I&O: 11/23/19 11/24/19 11/25/19 06:59 06:59 06:59 Intake Total 2997 3155.4 2024 Output Total 1395 1788 1320 Balance 1602 1367.4 704 Result Diagrams: 11/24/19 03:05 11/24/19 03:05 Additional Labs: Accuchecks 11/24/19 11/24/19 11/24/19 16:14 12:23 08:17 POC Glucose 371 H 421 H 367 H 11/24/19 11/24/19 11/23/19 03:08 00:46 20:33 POC Glucose 346 H 333 H 337 H Hospitalist ROS - Medication Medications: Active Medications Generic Name Dose Route Start Last Admin Trade Name Freq PRN Reason Stop Dose Admin Acetaminophen 650 mg 11/21/19 05:39 11/21/19 13:23 Tylenol MT 650 mg Q6H PRN Administration Fever > 101 or Mild Pain Acetaminophen 650 mg 11/24/19 16:43 11/24/19 16:47 Tylenol Elixir PER TUBE 650 mg Q6H PRN Administration Fever > 100.3 Clonidine 0.3 mg 11/23/19 13:00 11/23/19 13:35 Kpsfhzne-Vls-9 TD 0.3 mg Q7D JOSSY Administration Dextrose/Water 25 gm 11/21/19 04:06 11/21/19 04:21 Dextrose 50% SLOW IVP 25 gm PRN PRN Administration Hypoglycemia Famotidine 20 mg 11/24/19 09:00 11/24/19 08:01 Pepcid PO 20 mg DAILY JOSSY Administration Fluoxetine HCl 60 mg 11/22/19 09:00 11/24/19 08:01 Prozac PO 60 mg DAILY JOSSY Administration Gabapentin 600 mg 11/21/19 15:00 11/24/19 14:44 Neurontin PO 600 mg TID JOSSY Administration Heparin Sodium (Porcine) 5,000 units 11/21/19 15:00 11/24/19 14:43 Heparin SC 5,000 units TID JOSSY Administration Hydralazine HCl 100 mg 11/23/19 15:00 11/24/19 14:43 Apresoline PO 100 mg TID JOSSY Administration Fentanyl Citrate 2,000 mcg/ 100 mls @ 0 mls/hr 11/21/19 00:42 11/22/19 17:25 Sodium Chloride IV 12/21/19 00:42 100 mls INF JOSSY Administration Protocol Per Protocol Cefepime HCl 1 gm/ Sodium 100 mls @ 200 mls/hr 11/22/19 01:00 11/24/19 00:34 Chloride IVPB 100 mls Q24HR JOSSY Administration Sodium Chloride 1,000 mls @ 75 mls/hr 11/23/19 13:45 11/24/19 16:01 1/2 Normal Saline IV 1,000 mls .[id number] JOSSY Administration Vancomycin HCl 1 gm/ Device 200 mls @ 200 mls/hr 11/24/19 02:00 11/24/19 02: 51 IVPB 200 mls 0200 JOSSY Administration Nicardipine HCl 50 mg/ Sodium 250 mls @ 0 mls/hr 11/24/19 09:45 11/24/19 16: 02 Chloride IV 250 mls INF JOSSY Administration Protocol As Directed Insulin Human Lispro 0 units 11/24/19 10:33 11/24/19 16:41 Humalog SC 10 unit .MODERATE SLIDING SC PRN Administration Moderate Correctional Scale Labetalol HCl 200 mg 11/23/19 15:00 11/24/19 14:44 Normodyne PO 200 mg TID JOSSY Administration Levothyroxine Sodium 100 mcg 11/22/19 06:00 11/24/19 05:17 Synthroid PO 100 mcg 0600 JOSSY Administration Lorazepam 2 mg 11/21/19 02:24 11/21/19 04:21 Ativan SLOW IVP 12/21/19 02:24 2 mg Q1H PRN Administration Breakthrough agitation Morphine Sulfate 2 mg 11/21/19 02:24 11/21/19 05:38 Morphine SLOW IVP 12/21/19 02:24 2 mg Q1H PRN Administration Breakthrough Pain/Agitation Olanzapine 10 mg 11/23/19 21:00 11/23/19 20:19 Zyprexa PO 10 mg HS JOSSY Administration Propofol 1,000 mg 11/21/19 02:24 11/24/19 14:43 Diprivan IV 12/21/19 02:24 1,000 mg INF PRN Administration TO ACHIEVE GOAL RASS Protocol Spironolactone 25 mg 11/24/19 08:00 11/24/19 07:08 Aldactone PO 25 mg QAM-WM JOSSY Administration Vecuronium [place] 10 mg 11/21/19 10:31 11/22/19 15:55 Norcuron IVP 10 mg Q30MIN PRN Administration NEUROMUSCULAR BLOCKADE Hosp A/P (1) Acute respiratory failure with hypoxia Code(s): J96.01 - ACUTE RESPIRATORY FAILURE WITH HYPOXIA Status: Acute (2) Pneumonia due to COVID-19 virus Code(s): U07.1 - COVID-19; J12.89 - OTHER VIRAL PNEUMONIA Status: Acute (3) Metabolic acidosis Code(s): E87.2 - ACIDOSIS Status: Acute (4) Acute worsening of stage 3 chronic kidney disease Code(s): N18.3 - CHRONIC KIDNEY DISEASE, STAGE 3 (MODERATE) Status: Acute (5) Diastolic heart failure Code(s): I50.30 - UNSPECIFIED DIASTOLIC (CONGESTIVE) HEART FAILURE Status: Chronic Qualifiers: (6) Hypertension Code(s): I10 - ESSENTIAL (PRIMARY) HYPERTENSION Status: Chronic Qualifiers: (7) Obesity Code(s): E66.9 - OBESITY, UNSPECIFIED Status: Chronic (8) Hyperkalemia Code(s): E87.5 - HYPERKALEMIA Status: Resolved (9) Accelerated hypertension Code(s): I10 - ESSENTIAL (PRIMARY) HYPERTENSION Status: Acute - Plan Acute respiratory failure with hypoxia due to COVID-19 infection. The patient is on mechanical ventilation. Continue management per pulmonology. Metabolic acidosis resolved. High blood pressure has been uncontrolled despite multiple oral antihypertensive medications. Cardene drip was initiated. Sugar levels were also elevated likely due to effect of corticosteroids. Lantus 20 units in the morning and 5 units in the evening was started and insulin sliding scale was upgraded to medium.
[2019-11-24] MEDS: methylPREDNISolone Sod Succ/PF 125 MG/2 ML VIAL IVP SCH (20:52)
[2019-11-24] MEDS: OLANZapine 5 MG TAB PO SCH (20:53)
[2019-11-24] MEDS ORDERED: INSULIN DETEMIR 16 UNIT SQ SCH (21:00)
[2019-11-24] MEDS ORDERED: Insulin Glargine 5 UNITS in Pre-Filled Syringe 1 EACH SC SCH (21:00)
[2019-11-25] MEDS: Cefepime 1 GM in Sodium Chloride 0.9% 100 ML IVPB SCH (00:16)
[2019-11-25] MEDS: HumaLOG 300 UNITS/3 ML VIAL SC PRN ×5 (00:33→21:02)
[2019-11-25] MEDS: Vancomycin 1 GM in Premix Bag 1 BAG IVPB SCH (02:06)
[2019-11-25 04:48] LABS: ALT (SGPT) 11 U/L (8-55); AST (SGOT) 19 U/L (5-34); Albumin 2.6 g/dL (3.4-4.8); Alkaline Phosphatase 195 U/L (40-110); Anion Gap 18 mmol/L (10-20); BUN (Urea Nitrogen) 95 mg/dL (9.8-20.1); Bilirubin, Total 0.5 mg/dL (0.2-1.2); Calc. Creatinine Clearance 37 mL/min (70-130); Calcium 8.7 mg/dL (7.8-10.44); Carbon Dioxide 25 mmol/L (23-31); Chloride 100 mmol/L (98-107); Estimated GFR-MDRD 28; Globulin 4.5 g/dL (2.4-3.5); Glucose 374 mg/dL (80-115); Magnesium 2.6 mg/dL (1.6-2.6); Potassium 3.1 mmol/L (3.5-5.1); Protein, Total 7.1 g/dL (6.0-8.3); Sodium 140 mmol/L (136-145)
[2019-11-25 04:52] LABS: Phosphorus 2.2 mg/dL (2.3-4.7)
[2019-11-25 05:16] LABS: Band 7 % (5-11); Hemoglobin 12.1 g/dL (12.0-16.0); Lymphocytes 4 % (21-51); MDiff Complete? YES; Mean Corpuscular HGB CONC 32.4 g/dL (32.0-36.0); Mean Corpuscular Hemoglobin 31.1 pg (27.0-31.0); Mean Platelet Volume 10.1 fL (7.4-10.4); Neutrophil 89 % (42-75); Platelet Count 253 thou/uL (130-400); RBC Distribution Width 14.3 % (11.5-14.5); Red Blood Cell (RBC) Count 3.89 mill/uL (4.20-5.40); White Blood Cell (WBC) Count 13.8 thou/uL (4.8-10.8)
[2019-11-25] MEDS: Propofol 1,000 MG/100 ML VIAL IV PRN ×3 (06:02→16:41)
[2019-11-25] MEDS: Levothyroxine Sodium 100 MCG TAB PO SCH (06:02)
[2019-11-25] MEDS: Sodium Chloride 0.45% 1,000 ML IV SCH ×2 (06:03→16:42)
--- NOTE | 2019-11-25 08:01 | RAD ---
XR Chest 1 View Portable History: Pneumonia Comparison: Radiograph prior day Findings: Endotracheal tube tip sits at the clavicles. Enteric tube tip below diaphragm although out of field of view. Right subclavian port catheter tip at the mid SVC. Left subclavian central venous catheter tip projec ts over the inferior SVC. Pulmonary edema and right basilar opacity has slightly improved. No pneumothorax. Trace effusions. Impression: Slight improved lung aeration.
[2019-11-25 08:31] LABS: Actual Bicarbonate (HCO3a) 26.4 mEq/L (22-28); Base Excess (BEa) 3.3 mEq/L (-2.0 to +3.0); CO2 Tension 35.3 mmHg (35.0-45.0); Calcium, Ionized (arterial) 1.14 mmol/L (1.12-1.30); Carboxyhemoglobin (COHb) 0.3 gm% (0.0-3.0); Hemoglobin (Hb) 12.1 g/dL (12.0-16.0); Potassium - ABG Lab 3.18 mmol/L (3.70-5.30); pH, Arterial 7.49 (7.35-7.45)
[2019-11-25 08:33] LABS: O2 Tension (PaO2), arterial 46.1 mmHg (> 80.0)
[2019-11-25 08:34] LABS: Puncture Site RR
[2019-11-25 08:36] LABS: ALV-art Gradient 337.575 (0-20)
[2019-11-25] MEDS: Labetalol 100 MG TAB PO SCH ×2 (09:04→20:54)
[2019-11-25] MEDS: Ascorbic Acid 500 mg Chewable Tablet PO SCH (09:04)
[2019-11-25] MEDS: hydrALAZINE 25 MG TAB PO SCH ×3 (09:05→20:55)
[2019-11-25] MEDS: Famotidine 20 MG TAB PO SCH (09:05)
[2019-11-25] MEDS: Gabapentin 300 MG CAP PO SCH ×3 (09:05→20:55)
[2019-11-25] MEDS: FLUoxetine HCl 20 MG CAP PO SCH (09:05)
[2019-11-25] MEDS: Spironolactone 25 MG TAB PO SCH (09:06)
[2019-11-25] MEDS: methylPREDNISolone Sod Succ/PF 125 MG/2 ML VIAL IVP SCH ×2 (09:07→20:52)
[2019-11-25] MEDS: Insulin Glargine 20 UNITS in Pre-Filled Syringe 1 EACH SC SCH (09:10)
--- NOTE | 2019-11-25 09:24 | PRG ---
DATE OF SERVICE: 11/25/2019 OBJECTIVE: VITAL SIGNS: Ms. Cervantes heart rate is in the 90s, blood pressure 161/97, respiratory rate is 26. LUNGS: Unchanged. HEART: Unchanged. ABDOMEN: Unchanged. LABORATORY DATA: D-dimer is 11. Sodium 140, potassium 3.1, chloride 100, bicarb 25, BUN 95, creatinine 2.15, glucose is between 300 and 400. C-reactive protein 13.9, albumin is 2.6. IMPRESSION: COVID pneumonia, stable. With the persistently elevated D-dimer, one can make an argument to be more aggressive with anticoagulation, to continue with steroids. Convalescent plasma will be ordered. C-reactive protein is still 13. Critical care time, 30 minutes. ADDENDUM: The source of Ronda's Staph aureus bacteremia is unclear. With her chronic kidney disease, one could make an argument for considering alternative therapy instead of continuing with vancomycin. I will consult Dr. Mcdonald and ask his input. Job ID: [id number]
--- NOTE | 2019-11-25 10:28 | PDOC.HOSPP ---
- Subjective Encounter Date: 11/25/19 Subjective: Remains on the ventilator. Her blood pressure still uncontrolled and she is on nicardipine drip. - Objective Vital Signs & Weight: Vital Signs (12 hours) Temp Pulse Resp BP 11/25/19 09:05 95 158/37 H 11/25/19 09:04 95 158/97 H 11/25/19 08:00 26 H 11/25/19 07:45 94 163/103 H 11/25/19 06:00 26 H 11/25/19 04:00 99.2 F 26 H 11/25/19 02:20 90 154/99 H 11/25/19 02:00 26 H 11/25/19 00:00 99.5 F 26 H Weight Admit Weight 197 lb Weight 194 lb 4.8 oz Most Recent Monitor Data Heart Rate from ECG 95 NIBP 161/97 NIBP BP-Mean 118 Respiration from ECG 26 SpO2 91 I&O: 11/24/19 11/25/19 11/26/19 06:59 06:59 06:59 Intake Total 3155.4 3877 Output Total 1788 2390 Balance 1367.4 1487 Result Diagrams: 11/25/19 03:00 11/25/19 03:00 Additional Labs: Accuchecks 11/24/19 11/24/19 11/24/19 21:12 16:14 12:23 POC Glucose 301 H 371 H 421 H Hospitalist ROS - Medication Medications: Active Medications Generic Name Dose Route Start Last Admin Trade Name Freq PRN Reason Stop Dose Admin Acetaminophen 650 mg 11/21/19 05:39 11/21/19 13:23 Tylenol ME 650 mg Q6H PRN Administration Fever > 101 or Mild Pain Acetaminophen 650 mg 11/24/19 16:43 11/24/19 16:47 Tylenol Elixir PER TUBE 650 mg Q6H PRN Administration Fever > 100.3 Ascorbic Acid 1,000 mg 11/25/19 09:00 11/25/19 09:04 Vitamin C PO 1,000 mg DAILY JOSSY Administration Clonidine 0.3 mg 11/23/19 13:00 11/23/19 13:35 [id number] TD 0.3 mg Q7D JOSSY Administration Dextrose/Water 25 gm 11/21/19 04:06 11/21/19 04:21 Dextrose 50% SLOW IVP 25 gm PRN PRN Administration Hypoglycemia Famotidine 20 mg 11/24/19 09:00 11/25/19 09:05 Pepcid PO 20 mg DAILY JOSSY Administration Fluoxetine HCl 60 mg 11/22/19 09:00 11/25/19 09:05 Prozac PO 60 mg DAILY JOSSY Administration Gabapentin 600 mg 11/21/19 15:00 11/25/19 09:05 Neurontin PO 600 mg TID JOSSY Administration Hydralazine HCl 100 mg 11/23/19 15:00 11/25/19 09:05 Apresoline PO 100 mg TID JOSSY Administration Fentanyl Citrate 2,000 mcg/ 100 mls @ 0 mls/hr 11/21/19 00:42 11/22/19 17:25 Sodium Chloride IV 12/21/19 00:42 100 mls INF JOSSY Administration Protocol Per Protocol Cefepime HCl 1 gm/ Sodium 100 mls @ 200 mls/hr 11/22/19 01:00 11/25/19 00:16 Chloride IVPB 100 mls Q24HR JOSSY Administration Sodium Chloride 1,000 mls @ 75 mls/hr 11/23/19 13:45 11/25/19 06:03 1/2 Normal Saline IV 1,000 mls .[id number] JOSSY Administration Nicardipine HCl 50 mg/ Sodium 250 mls @ 0 mls/hr 11/24/19 09:45 11/24/19 22: 48 Chloride IV 250 mls INF JOSSY Administration Protocol As Directed Insulin Glargine 20 units/ 0.2 mls @ 0 mls/hr 11/25/19 09:00 11/25/19 09:10 Miscellaneous Medication SC 0.2 mls QAM JOSSY Administration Insulin Human Lispro 0 units 11/24/19 10:33 11/25/19 04:30 Humalog SC 10 unit .MODERATE SLIDING SC PRN Administration Moderate Correctional Scale Labetalol HCl 200 mg 11/23/19 15:00 11/25/19 09:04 Normodyne PO 200 mg TID JOSSY Administration Levothyroxine Sodium 100 mcg 11/22/19 06:00 11/25/19 06:02 Synthroid PO 100 mcg 0600 JOSSY Administration Lorazepam 2 mg 11/21/19 02:24 11/21/19 04:21 Ativan SLOW IVP 12/21/19 02:24 2 mg Q1H PRN Administration Breakthrough agitation Methylprednisolone Sodium Succinate 80 mg 11/24/19 21:00 11/25/19 09:07 Solu-Medrol IVP 80 mg Q12HR JOSSY Administration Morphine Sulfate 2 mg 11/21/19 02:24 11/21/19 05:38 Morphine SLOW IVP 12/21/19 02:24 2 mg Q1H PRN Administration Breakthrough Pain/Agitation Olanzapine 10 mg 11/23/19 21:00 11/24/19 20:53 Zyprexa PO 10 mg HS JOSSY Administration Potassium Chloride 60 meq 11/25/19 07:45 11/25/19 09:04 Klor-Con PO 11/25/19 11:00 60 meq NOW JOSSY Administration Propofol 1,000 mg 11/21/19 02:24 11/25/19 09:11 Diprivan IV 12/21/19 02:24 1,000 mg INF PRN Administration TO ACHIEVE GOAL RASS Protocol Sodium Chloride 10 ml 11/25/19 09:00 11/25/19 09:07 Flush - Normal Saline IVF 10 ml Q12HR JOSSY Administration Spironolactone 50 mg 11/25/19 09:00 11/25/19 09:06 Aldactone PO 50 mg DAILY JOSSY Administration Vecuronium [place] 10 mg 11/21/19 10:31 11/22/19 15:55 Norcuron IVP 10 mg Q30MIN PRN Administration NEUROMUSCULAR BLOCKADE Hosp A/P (1) Acute respiratory failure with hypoxia Code(s): J96.01 - ACUTE RESPIRATORY FAILURE WITH HYPOXIA Status: Acute (2) Pneumonia due to COVID-19 virus Code(s): U07.1 - COVID-19; J12.89 - OTHER VIRAL PNEUMONIA Status: Acute (3) Metabolic acidosis Code(s): E87.2 - ACIDOSIS Status: Acute (4) Acute worsening of stage 3 chronic kidney disease Code(s): N18.3 - CHRONIC KIDNEY DISEASE, STAGE 3 (MODERATE) Status: Acute (5) Diastolic heart failure Code(s): I50.30 - UNSPECIFIED DIASTOLIC (CONGESTIVE) HEART FAILURE Status: Chronic Qualifiers: (6) Hypertension Code(s): I10 - ESSENTIAL (PRIMARY) HYPERTENSION Status: Chronic Qualifiers: (7) Obesity Code(s): E66.9 - OBESITY, UNSPECIFIED Status: Chronic (8) Hyperkalemia Code(s): E87.5 - HYPERKALEMIA Status: Resolved (9) Accelerated hypertension Code(s): I10 - ESSENTIAL (PRIMARY) HYPERTENSION Status: Acute - Plan Acute respiratory failure with hypoxia due to COVID-19 infection. The patient is on mechanical ventilation. Continue management per pulmonology. Metabolic acidosis resolved. Continue labetalol, clonidine, and hydralazine. Add isosorbide dinitrate and minoxidil to try to wean the patient off Cardene drip. Sugar levels were also elevated likely due to effect of corticosteroids. Increase Lantus to 20 units in the morning and 15 units at night.
[2019-11-25] MEDS ORDERED: Isosorbide Dinitrate 5 MG TAB PO SCH ×2 (10:30→21:00)
[2019-11-25] MEDS ORDERED: Minoxidil 2.5 MG TAB PO SCH (10:30)
[2019-11-25] MEDS: niCARdipine 50 MG in Sodium Chloride 0.9% 250 ML 230 ML IV SCH ×3 (11:55→22:28)
[2019-11-25] MEDS ORDERED: Labetalol 100 MG TAB PO SCH (13:30)
--- NOTE | 2019-11-25 13:46 | PRG ---
DATE OF SERVICE: 11/25/2019 SERVICE: Nephrology. SUBJECTIVE: A 64-year-old female admitted due to worsening shortness of breath and mental status change in the context of recent diagnosis and treatment of COVID pneumonia. Nephrology is seeing the patient for acute kidney injury and hypertension. The patient is still intubated and mechanically ventilated. OBJECTIVE: VITAL SIGNS: Temperature 99.2, pulse 95, respiratory rate 26, blood pressure 158/97, SpO2 of 94% on 50% FiO2. I and O in the last 24 hours showed total intake of 3877 with output of 2390. GENERAL: Sedated female in no distress. Afebrile. HEENT: Normocephalic, atraumatic. ET tube and NG tubes are in place. CARDIOVASCULAR: Regular rhythm and rate with normal heart sounds 1 and 2. RESPIRATORY: Ventilator transmitted breath sound is heard in all lung zones. No obvious rhonchi are appreciated. GI: Obese, soft, nontender, nondistended with normal bowel sounds. UROGENITAL: Quevedo catheter is in place draining urine. EXTREMITIES: Grossly normal looking atraumatic with no edema or erythema. FREIGHT COORDINATOR: The patient is sedated. DIAGNOSTIC DATA: CBC today showed WBC count of 13.8, hemoglobin of 12.1, MCV of 96, and platelet of 253. D-dimer today is 11.15. Arterial blood gas showed pH of 7.49, pCO2 of 35.3, pO2 of 46.1. Chemistry showed sodium 140, potassium 3.1, chloride 100, CO2 of 25, BUN 95, creatinine 2.15, glucose 374, calcium 8.7, magnesium 2.6, phosphorus 2.2, total protein 7.1, albumin 2.6. Chest x-ray showed pulmonary edema and right basilar opacity, which has improved from prior chest x-ray. Trace effusions are noted. ASSESSMENT: 1. Secondary hypertension: Due to primary hyperaldosteronism. Control is better with addition of Cardene drip. Still suboptimal. 2. Acute kidney injury: Due to hemodynamic factors. Improving. 3. Elevated BUN: Marginally, better today from 96, yesterday to 95. Related to steroid and tube feeding. Protein intake has been decreased. 4. Acute respiratory failure requiring intubation. 5. Coronavirus disease pneumonia. 6. Septic shock due to Staphylococcus bacteremia. PLAN: 1. Increase labetalol to 40 mg b.i.d. Agree with addition of isosorbide dinitrate. We will consider restarting losartan once creatinine stabilizes. We will monitor renal function. 2. Other treatment as per primary attending and house mover supervisor. The patient remains critically ill with guarded prognosis. Job ID: [id number]
[2019-11-25] MEDS: Isosorbide Dinitrate 5 MG TAB PO SCH ×2 (16:15→20:52)
[2019-11-25] MEDS: Enoxaparin Sodium 80 MG/0.8 ML SYRINGE SC SCH (20:53)
[2019-11-25] MEDS: OLANZapine 5 MG TAB PO SCH (20:53)
[2019-11-25] MEDS: Insulin Glargine 15 UNITS in Pre-Filled Syringe 1 EACH SC SCH (20:55)
[2019-11-25] MEDS: Lorazepam 2 MG/ML VIAL SLOW IVP PRN (23:53)
[2019-11-25 23:59] LABS: Actual Bicarbonate (HCO3a) 25.7 mEq/L (22-28); Base Excess (BEa) 1.6 mEq/L (-2.0 to +3.0); CO2 Tension 38.6 mmHg (35.0-45.0); Calcium, Ionized (arterial) 1.22 mmol/L (1.12-1.30); Carboxyhemoglobin (COHb) 0.4 gm% (0.0-3.0); Hemoglobin (Hb) 12.4 g/dL (12.0-16.0); Potassium - ABG Lab 4.06 mmol/L (3.70-5.30); pH, Arterial 7.44 (7.35-7.45)
[2019-11-26] MEDS: Vecuronium 10 MG VIAL IVP PRN ×3 (00:07→03:39)
[2019-11-26 00:30] LABS: O2 Tension (PaO2), arterial 25.9 mmHg (> 80.0); Puncture Site RR
[2019-11-26] MEDS: Cefepime 1 GM in Sodium Chloride 0.9% 100 ML IVPB SCH (00:51)
[2019-11-26] MEDS: HumaLOG 300 UNITS/3 ML VIAL SC PRN ×4 (04:05→21:16)
[2019-11-26 04:29] LABS: ALT (SGPT) 11 U/L (8-55); AST (SGOT) 17 U/L (5-34); Albumin 2.8 g/dL (3.4-4.8); Alkaline Phosphatase 173 U/L (40-110); Anion Gap 15 mmol/L (10-20); BUN (Urea Nitrogen) 98 mg/dL (9.8-20.1); Bilirubin, Total 0.5 mg/dL (0.2-1.2); Calc. Creatinine Clearance 35 mL/min (70-130); Calcium 8.9 mg/dL (7.8-10.44); Carbon Dioxide 26 mmol/L (23-31); Chloride 101 mmol/L (98-107); Estimated GFR-MDRD 26; Globulin 4.2 g/dL (2.4-3.5); Glucose 409 mg/dL (80-115); Sodium 138 mmol/L (136-145)
[2019-11-26 04:42] LABS: Band 1 % (5-11); Hemoglobin 11.8 g/dL (12.0-16.0); Lymphocytes 2 % (21-51); MDiff Complete? YES; Mean Corpuscular HGB CONC 32.5 g/dL (32.0-36.0); Mean Corpuscular Hemoglobin 32.1 pg (27.0-31.0); Mean Corpuscular Volume 98.7 fL (78.0-98.0); Mean Platelet Volume 8.9 fL (7.4-10.4); Monocytes 1 % (0-10); Platelet Count 291 thou/uL (130-400); Platelet Morphology Comment Appears Adequate; RBC Distribution Width 14.5 % (11.5-14.5); Red Blood Cell (RBC) Count 3.67 mill/uL (4.20-5.40); Target Cells SLIGHT = 2-5 cells (100X) (0-1/hpf); White Blood Cell (WBC) Count 12.7 thou/uL (4.8-10.8)
[2019-11-26] MEDS: niCARdipine 50 MG in Sodium Chloride 0.9% 250 ML 230 ML IV SCH ×3 (05:11→18:34)
[2019-11-26] MEDS: Levothyroxine Sodium 100 MCG TAB PO SCH (05:23)
[2019-11-26] MEDS: Propofol 1,000 MG/100 ML VIAL IV PRN ×4 (05:23→21:06)
[2019-11-26] MEDS: Sodium Chloride 0.45% 1,000 ML IV SCH ×2 (06:02→18:34)
--- NOTE | 2019-11-26 09:26 | RAD ---
PORTABLE SUPINE CHEST: Date: 11/26/2019 HISTORY: Pneumonia follow-up and CCU follow-up. COMPARISON: 11/25/2019. FINDINGS: Patchy areas of confluent pneumonia seen throughout the right lung, more pronounced in the right lowe r lung. These infiltrates have become more pronounced since yesterday. There is cardiomegaly with mil d vascular congestion and hazy interstitial edema or infiltrates throughout the left lung. Right pneumothorax is noted. IMPRESSION: Worsening of right lung infiltrates when compared to yesterday. Increased congestive changes. Right pneumothorax. Dr. Burkett aware of findings. POS: LINDA
--- NOTE | 2019-11-26 09:38 | PRG ---
DATE OF SERVICE: 11/26/2019 30 minutes of critical time. SUBJECTIVE: The patient had to be placed in prone position last night because of worsening hypoxemia. OBJECTIVE: VITAL SIGNS: Temperature 98.2, pulse 74, blood pressure 145/86, O2 saturation 97%. She is on propofol drip and a nicardipine drip. 24-hour intake has been 3694, output 2800. LUNGS: Exam is limited to lungs because she is prone. She has coarse crackles bilaterally. She has some peripheral edema. LABORATORY DATA: White blood cell count 12.7, hematocrit 36.2, platelet count 291. Blood gas from late last night showed a pH of 7.44, pCO2 of 38, pO2 of 25 on pressure control rate 26, high-pressure 22, and a PEEP of 12. Sodium is 138, potassium 4, chloride 101, CO2 of 26, BUN 98, creatinine 2.3, glucose 409. ASSESSMENT: 1. COVID-19 pneumonia. 2. Acute respiratory failure requiring mechanical ventilation. 3. Staphylococcus bacteremia. 4. Dpm-lc-nfmfovl blood sugars. 5. Hypertension. PLAN: The patient remains on cefepime for coverage of the staphylococcus. She is on anticoagulation and steroids for the COVID. She needs higher doses of Lantus in my opinion. Prognosis is very poor. Job ID: [id number]
[2019-11-26] MEDS ORDERED: Lidocaine 1% (PF) 30 ML VIAL ONE (09:57)
[2019-11-26] MEDS: methylPREDNISolone Sod Succ/PF 125 MG/2 ML VIAL IVP SCH ×2 (10:01→20:34)
[2019-11-26] MEDS: Isosorbide Dinitrate 5 MG TAB PO SCH ×3 (10:02→20:34)
[2019-11-26] MEDS: Labetalol 100 MG TAB PO SCH ×2 (10:02→20:36)
[2019-11-26] MEDS: Famotidine 20 MG TAB PO SCH (10:04)
[2019-11-26] MEDS: Minoxidil 2.5 MG TAB PO SCH (10:04)
[2019-11-26] MEDS: FLUoxetine HCl 20 MG CAP PO SCH (10:05)
[2019-11-26] MEDS: Gabapentin 300 MG CAP PO SCH ×3 (10:05→20:35)
[2019-11-26] MEDS: Ascorbic Acid 500 mg Chewable Tablet PO SCH (10:05)
[2019-11-26] MEDS: Spironolactone 25 MG TAB PO SCH (10:05)
[2019-11-26] MEDS: hydrALAZINE 25 MG TAB PO SCH ×3 (10:06→20:35)
[2019-11-26] MEDS: Insulin Glargine 20 UNITS in Pre-Filled Syringe 1 EACH SC SCH (10:06)
--- NOTE | 2019-11-26 11:42 | RAD ---
PORTABLE CHEST: Date: 11/26/2019 HISTORY: Chest tube placement. Pneumothorax. FINDINGS: A right-sided chest tube has been placed. There continues to be a peripheral right pneumothorax not significantly changed when compared to film earlier. Diffuse confluent infiltrate throughout the right lung is again noted. Hazy infiltrate and/or edema i n the left lung with vascular congestion again noted. ET tube, NG tube, and central lines are unchang ed. IMPRESSION: Right chest tube has been placed. Persistent peripheral right pneumothorax not significantly changed in size. POS: AGW
--- NOTE | 2019-11-26 13:15 | PRG ---
DATE OF SERVICE: 11/26/2019 SERVICE: Nephrology. SUBJECTIVE: A 64-year-old female with known history of hypertension, diabetes, Crohn disease, who was admitted due to acute respiratory failure and acute encephalopathy. Found to have COVID pneumonia as well as Staphylococcus aureus bacteremia. Nephrology is seeing the patient for acute kidney injury and secondary hypertension. The patient developed worsening shortness of breath and found to have pneumothorax, status post chest tube placement. Still intubated and mechanically ventilated. Currently, on prone position. OBJECTIVE: VITAL SIGNS: Temperature 98.2, pulse 74, respiratory rate 26, SpO2 of 97% on the ventilator, and blood pressure is 145/86. I and O in the last 24 hours showed total intake of 3694 with output of 2800. GENERAL: Obese female, in prone position. No overt distress. HEENT: Normocephalic, atraumatic. CARDIOVASCULAR: Regular rhythm and rate with normal heart sounds 1 and 2. RESPIRATORY: Ventilator transmitted breath sounds heard in all lung zones. GI: Soft, nondistended with normal bowel sounds. UROGENITAL: Quevedo catheter is in place draining some urine. MUSCULOSKELETAL/EXTREMITIES: Right-sided chest tube noted. No edema of the extremities appreciated. MODEL AND DYE PERSON: Sedated. DIAGNOSTIC DATA: CBC showed WBC count of 12.7, hemoglobin of 11.8, and platelets of 291. Chemistry showed sodium 138, potassium 4.0, chloride 101, CO2 of 26, BUN 98, creatinine 2.26, glucose 409, calcium 8.9, total bilirubin 0.5, total protein 7.0, and albumin 2.8. Chest x-ray showed right-sided chest tube as well as persistent peripheral right pneumothorax, which is not significantly changed. Diffuse confluent infiltrate throughout the right lung is noted as well as hazy infiltrate or edema in the left lung with vascular congestion again noted. ASSESSMENT: 1. Acute kidney injury: Improved with improvement of hemodynamics. 2. Chronic kidney disease stage 3/4. 3. 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 The patient has had hard to control blood pressure. Currently, on Cardene drip as well as several oral antihypertensives. 4. New-onset right-sided pleural pneumothorax, status post chest tube placement. 5. Acute respiratory failure with hypoxia. 6. Staphylococcus aureus bacteremia. 7. Septic shock: Resolved. 8. COVID pneumonia. 9. Diabetes mellitus with hyperglycemia. 10. Increasing BUN/azotemia. PLAN: Continue supportive care. There is no need for dialysis at this point. We will continue to monitor the patient closely. We will monitor blood pressure and wean Cardene drip as tolerated. If needed, we will increase labetalol to 400 mg t.i.d. to get an adequate BP control off Cardene drip. Other treatment as per sewing machines salesperson and primary attending. We will recheck renal function in the morning. Job ID: [id number]
--- NOTE | 2019-11-26 16:16 | EKG ---
Test Reason : Blood Pressure : / mmHG Vent. Rate : 103 BPM Atrial Rate : 103 BPM P-R Int : 140 ms QRS Dur : 082 ms QT Int : 346 ms P-R-T Axes : 056 028 028 degrees QTc Int : 453 ms Sinus tachycardia Possible Left atrial enlargement Borderline ECG Confirmed by KATHLEEN STRANGE ([id number]), script editor YASH MAGALLANES ([id number]) on 11/26/2019 4:15:30 PM Referred By: Confirmed By:KATHLEEN STRANGE
[2019-11-26] MEDS ORDERED: Oxacillin 2 GM in Sodium Chloride 0.9% 100 ML IVPB SCH (17:00)
[2019-11-26] MEDS: OXACILLIN IVPB SCH ×2 (17:58→20:40)
--- NOTE | 2019-11-26 18:28 | CON ---
DATE OF CONSULTATION: 11/26/2019 REQUESTING PHYSICIAN: Dr. Burkett. REASON FOR CONSULTATION: Pneumothorax. HISTORY OF PRESENT ILLNESS: The patient is a 64-year-old woman with multiple medical problems, who is on mechanical ventilation in the prone position for COVID pneumonia. She apparently had improved a bit and was able to be supine, but during the night, her oxygenation again deteriorated and on this morning's x-ray, she was noted to have a right-sided pneumothorax. PAST MEDICAL HISTORY: Significant for COPD and she has been followed by Dr. Andrade since 2005. She has hypertension, diabetes mellitus, obstructive sleep apnea, Crohn disease, and chronic diastolic heart failure, and she was admitted with pancreatitis in March. PAST SURGICAL HISTORY: Significant for cholecystectomy, hysterectomy with BSO, appendectomy, and small bowel resection. ALLERGIES: SHE HAS AN ALLERGY TO MORPHINE. FAMILY HISTORY: Significant for diabetes and heart disease. She was smoking at least up until March. HOME MEDICATIONS: 1. Clonidine. 2. Olanzapine. 3. Synthroid. 4. Gabapentin. 5. Duloxetine. 6. Hydralazine. 7. Torsemide. 8. Nifedipine. 9. Mirtazapine. 10. Lubiprostone. 11. Cozaar. 12. Labetalol. 13. Insulin Levemir. 14. Remicade. 15. Doxepin. 16. Calcitriol. 17. Rexulti. 18. Allopurinol. PHYSICAL EXAMINATION: GENERAL: She is supine and intubated, sedated with propofol, and paralyzed with Norcuron. VITAL SIGNS: Her heart rates are in the 80s, blood pressure in the 150 to 160 over 90 to 100 range. Her O2 saturations are 81%. LUNGS: She has bilateral crackles. ABDOMEN: She is markedly obese. NEUROLOGIC: She has no obvious responsiveness to stimulation. LABORATORY DATA: Her hemoglobin is 11.8, platelet count 291,000. BUN is 98, creatinine 2.26, alkaline phosphatase 173, albumin 2.8. Her chest x-ray shows bilateral infiltrates with fairly dense consolidation at the right base with air bronchograms and pneumothorax tracks along the right lateral chest wall. I have reviewed all of her x-rays over the last several days and discussed protocols with Dr. Burkett, confirming that the patient has a left-sided heart and that the images are digitally flipped into a conventional orientation to take into account of prone positioning. IMPRESSION AND RECOMMENDATIONS: Critically ill, intubated patient with worsening of respiratory failure due to pneumothorax on the right side. We will place a right-sided chest tube. Job ID: [id number]
--- NOTE | 2019-11-26 18:41 | OP ---
DATE OF PROCEDURE: 11/26/2019 PROCEDURE PERFORMED: 36-Qatari right tube thoracostomy. PREOPERATIVE DIAGNOSIS: Right pneumothorax. POSTOPERATIVE DIAGNOSIS: Right pneumothorax. ANESTHESIA: 1% lidocaine, local anesthesia. INDICATIONS: The patient is a 64-year-old black woman with multiple medical problems, who was intubated and in the prone position dealing with COVID pneumonia and respiratory failure. Her oxygenation deteriorated during the night and on chest x-ray this morning, she was noted to have a right-sided pneumothorax. FINDINGS: Thin fluid aspirated from the chest, air vaca heard upon entering the chest. DESCRIPTION OF PROCEDURE: The patient's chest x-rays were examined in the right-sided positioning and the pneumothorax was confirmed. Landmarks on her back and right side were examined. A roll was placed under the patient's right side, elevated the lateral aspect of her chest. Right lateral chest and back were prepped and draped in sterile fashion. 1% lidocaine was used to infiltrate the skin, subcutaneous tissues along the inframammary crease at about the posterior axillary line about an interspace below the tip of the scapula. The skin was sharply incised. A subcutaneous tract was developed superiorly and posteriorly. The lidocaine syringe and needle were marched over a superior rib margin and pleural fluid was aspirated. The needle was slightly withdrawn and a bolus of lidocaine was infiltrated. Blunt dissection was used to enter the pleural space and a large air vaca was heard. The wound was probed with the surgeon's finger and a 36-Qatari chest tube was inserted, confirming intrapleural positioning by palpation between the ribs. The chest tube was secured to the skin with suture and connected to close suction drainage. Postprocedure chest x-ray showed incomplete re-expansion of the lung, but oxygen saturations were noted to have almost immediately gone from the low to mid 80s to the mid to high 90s. Job ID: [id number]
[2019-11-26] MEDS: Enoxaparin Sodium 80 MG/0.8 ML SYRINGE SC SCH (20:33)
[2019-11-26] MEDS: Insulin Glargine 15 UNITS in Pre-Filled Syringe 1 EACH SC SCH (20:33)
[2019-11-26] MEDS: OLANZapine 5 MG TAB PO SCH (20:34)
--- NOTE | 2019-11-26 22:29 | PDOC.HOSPP ---
- Subjective Encounter Date: 11/26/19 Encounter Time: 15:00 Subjective: Patient was seen and examined in bed. She was on ventilator support improving. Blood pressure has been elevated overnight and she has been on nicardipine drip. - Objective Vital Signs & Weight: Vital Signs (12 hours) Temp Pulse Resp BP Pulse Ox 11/26/19 22:25 76 116/69 11/26/19 22:00 26 H 11/26/19 20:36 75 138/76 11/26/19 20:35 75 138/76 11/26/19 20:00 26 H 11/26/19 19:16 78 136/74 11/26/19 19:00 98.2 F 11/26/19 18:00 26 H 11/26/19 16:00 97.9 F 26 H 11/26/19 15:33 77 138/78 11/26/19 15:00 80 11/26/19 14:00 26 H 11/26/19 12:00 97.0 F L 26 H 97 11/26/19 11:54 77 129/74 Weight Admit Weight 197 lb Weight 193 lb 12.8 oz Most Recent Monitor Data Heart Rate from ECG 75 NIBP 107/64 NIBP BP-Mean 78 Respiration from ECG 26 SpO2 98 I&O: 11/25/19 11/26/19 11/27/19 06:59 06:59 06:59 Intake Total 3877 3694 1697 Output Total 2390 2800 1470 Balance 1487 894 227 Result Diagrams: 11/26/19 03:45 11/26/19 03:45 Additional Labs: Accuchecks 11/26/19 11/26/19 11/26/19 21:04 18:49 16:08 POC Glucose 279 H 278 H 303 H 11/26/19 11/26/19 11/25/19 10:59 01:26 21:05 POC Glucose 301 H 386 H 356 H 11/25/19 11/25/19 11/25/19 17:06 12:19 09:31 POC Glucose 329 H 355 H 419 H Hospitalist ROS - Medication Medications: Active Medications Generic Name Dose Route Start Last Admin Trade Name Freq PRN Reason Stop Dose Admin Acetaminophen 650 mg 11/21/19 05:39 11/21/19 13:23 Tylenol [place] 650 mg Q6H PRN Administration Fever > 101 or Mild Pain Acetaminophen 650 mg 09/10/20 16:43 11/24/19 16:47 Tylenol Elixir PER TUBE 650 mg Q6H PRN Administration Fever > 100.3 Ascorbic Acid 1,000 mg 11/25/19 09:00 11/26/19 10:05 Vitamin C PO 1,000 mg DAILY JOSSY Administration Clonidine 0.3 mg 11/23/19 13:00 11/23/19 13:35 Wafuznts-Euc-8 TD 0.3 mg Q7D JOSSY Administration Dextrose/Water 25 gm 11/21/19 04:06 11/21/19 04:21 Dextrose 50% SLOW IVP 25 gm PRN PRN Administration Hypoglycemia Enoxaparin Sodium 80 mg 11/25/19 21:00 11/26/19 20:33 Lovenox SC 80 mg 2100 JOSSY Administration Famotidine 20 mg 11/24/19 09:00 11/26/19 10:04 Pepcid PO 20 mg DAILY JOSSY Administration Fluoxetine HCl 60 mg 11/22/19 09:00 11/26/19 10:05 Prozac PO 60 mg DAILY JOSSY Administration Gabapentin 600 mg 11/21/19 15:00 11/26/19 20:35 Neurontin PO 600 mg TID JOSSY Administration Hydralazine HCl 100 mg 11/23/19 15:00 11/26/19 20:35 Apresoline PO 100 mg TID JOSSY Administration Fentanyl Citrate 2,000 mcg/ 100 mls @ 0 mls/hr 11/21/19 00:42 11/22/19 17:25 Sodium Chloride IV 12/21/19 00:42 100 mls INF JOSSY Administration Protocol Per Protocol Sodium Chloride 1,000 mls @ 75 mls/hr 11/23/19 13:45 11/26/19 18:34 1/2 Normal Saline IV 1,000 mls .[id number] JOSSY Administration Nicardipine HCl 50 mg/ Sodium 250 mls @ 0 mls/hr 11/24/19 09:45 11/26/19 18:34 Chloride IV 250 mls INF JOSSY Administration Protocol As Directed Insulin Glargine 20 units/ 0.2 mls @ 0 mls/hr 11/25/19 09:00 11/26/19 10:06 Miscellaneous Medication SC 0.2 mls QAM JOSSY Administration Insulin Glargine 15 units/ 0.15 mls @ 0 mls/hr 11/25/19 21:00 11/26/19 20:33 Miscellaneous Medication SC 0.15 mls HS JOSSY Administration Oxacillin Sodium 2,000 mg/ 20 mls @ 0 mls/hr 11/26/19 17:00 11/26/19 20:40 Syringe IVPB 20 mls Q4H JOSSY Administration Insulin Human Lispro 0 units 11/24/19 10:33 11/26/19 21:16 Humalog SC 6 unit .MODERATE SLIDING SC PRN Administration Moderate Correctional Scale Isosorbide Dinitrate 20 mg 11/25/19 15:00 11/26/19 20:34 Isordil PO 20 mg TID JOSSY Administration Labetalol HCl 400 mg 11/25/19 21:00 11/26/19 20:36 Normodyne PO 400 mg BID JOSSY Administration Levothyroxine Sodium 100 mcg 11/22/19 06:00 11/26/19 05:23 Synthroid PO 100 mcg 0600 JOSSY Administration Lorazepam 2 mg 11/21/19 02:24 11/25/19 23:53 Ativan SLOW IVP 12/21/19 02:24 2 mg Q1H PRN Administration Breakthrough agitation Methylprednisolone Sodium Succinate 80 mg 11/24/19 21:00 11/26/19 20:34 Solu-Medrol IVP 80 mg Q12HR JOSSY Administration Minoxidil 5 mg 11/26/19 09:00 11/26/19 10:04 Minoxidil PO 5 mg DAILY JOSSY Administration Morphine Sulfate 2 mg 11/21/19 02:24 11/21/19 05:38 Morphine SLOW IVP 12/21/19 02:24 2 mg Q1H PRN Administration Breakthrough Pain/Agitation Olanzapine 10 mg 11/23/19 21:00 11/26/19 20:34 Zyprexa PO 10 mg HS JOSSY Administration Propofol 1,000 mg 11/21/19 02:24 11/26/19 21:06 Diprivan IV 12/21/19 02:24 1,000 mg INF PRN Administration TO ACHIEVE GOAL RASS Protocol Sodium Chloride 10 ml 11/25/19 09:00 11/26/19 20:37 Flush - Normal Saline IVF 10 ml Q12HR JOSSY Administration Spironolactone 50 mg 11/25/19 09:00 09/12/20 10:05 Aldactone PO 50 mg DAILY JOSSY Administration Vecuronium [place] 10 mg 11/21/19 10:31 11/26/19 03:39 Norcuron IVP 10 mg Q30MIN PRN Administration NEUROMUSCULAR BLOCKADE - Exam General - other findings: Patient in bed, in prone position on vent Heart - other findings: S1-S2 present. No murmurs gallops or rubs. Respiratory - other findings: Coarse breath sounds bilaterally. Extremities: 1+ LE edema Hosp A/P - Plan 64-year-old female patient admitted in the ICU on ventilator support on account of acute hypoxic respiratory failure with COVID pneumonia. Also has staffers bacteremia or severe hypotension. Acute hypoxic respiratory failure Secondary to cover pneumonia Continue ventilator management Pulmonology following. COVID pneumonia Continues tolerating anticoagulation. Continue close monitoring. Staph aureus bacteremia Continue on oxacillin Severe hypertension On nicardipine drip Also on spironolactone, minoxidil, isosorbide dinitrate and hydralazine Continue blood pressure monitoring. Poorly controlled blood sugars. Likely secondary to steroids Glargine adjusted to 20 units a.m. and 15 units p.m. We will monitor for daily and adjust insulin as needed Also on moderate correctional scale. Hypothyroidism Continue levothyroxine VTE prophylaxistherapeutic: Lovenox Dispositionpending improvement. Prognosis is generally poor.
[2019-11-27] MEDS: OXACILLIN IVPB SCH ×2 (01:10→05:22)
[2019-11-27] MEDS: Propofol 1,000 MG/100 ML VIAL IV PRN ×3 (02:32→13:47)
[2019-11-27 05:01] LABS: ALT (SGPT) 11 U/L (8-55); AST (SGOT) 14 U/L (5-34); Albumin 2.6 g/dL (3.4-4.8); Alkaline Phosphatase 139 U/L (40-110); Anion Gap 17 mmol/L (10-20); BUN (Urea Nitrogen) 100 mg/dL (9.8-20.1); Bilirubin, Total 0.4 mg/dL (0.2-1.2); Calc. Creatinine Clearance 38 mL/min (70-130); Calcium 8.8 mg/dL (7.8-10.44); Carbon Dioxide 22 mmol/L (23-31); Chloride 105 mmol/L (98-107); Estimated GFR-MDRD 30; Globulin 3.7 g/dL (2.4-3.5); Glucose 249 mg/dL (80-115); Potassium 3.6 mmol/L (3.5-5.1); Protein, Total 6.3 g/dL (6.0-8.3); Sodium 140 mmol/L (136-145)
[2019-11-27 05:02] LABS: Band 3 % (5-11); Hemoglobin 10.9 g/dL (12.0-16.0); Lymphocytes 5 % (21-51); MDiff Complete? YES; Mean Corpuscular HGB CONC 33.2 g/dL (32.0-36.0); Mean Corpuscular Hemoglobin 32.1 pg (27.0-31.0); Mean Corpuscular Volume 96.5 fL (78.0-98.0); Mean Platelet Volume 9.4 fL (7.4-10.4); Monocytes 2 % (0-10); Platelet Count 277 thou/uL (130-400); RBC Distribution Width 14.2 % (11.5-14.5); Red Blood Cell (RBC) Count 3.39 mill/uL (4.20-5.40); Target Cells SLIGHT = 2-5 cells (100X) (0-1/hpf); White Blood Cell (WBC) Count 8.6 thou/uL (4.8-10.8)
[2019-11-27] MEDS: Levothyroxine Sodium 100 MCG TAB PO SCH (05:22)
[2019-11-27] MEDS: HumaLOG 300 UNITS/3 ML VIAL SC PRN ×3 (05:22→17:00)
[2019-11-27 07:55] LABS: Actual Bicarbonate (HCO3a) 21.9 mEq/L (22-28); Base Excess (BEa) -1.6 mEq/L (-2.0 to +3.0); CO2 Tension 33.2 mmHg (35.0-45.0); Calcium, Ionized (arterial) 1.24 mmol/L (1.12-1.30); Carboxyhemoglobin (COHb) 0.3 gm% (0.0-3.0); Hemoglobin (Hb) 12.8 g/dL (12.0-16.0); O2 Tension (PaO2), arterial 63.4 mmHg (> 80.0); Potassium - ABG Lab 3.65 mmol/L (3.70-5.30); pH, Arterial 7.44 (7.35-7.45)
--- NOTE | 2019-11-27 07:57 | RAD ---
PORTABLE CHEST: HISTORY: Follow up pneumothorax and intubation. COMPARISON: 11/26/19 FINDINGS: Persistent right pneumothorax, which appears to have enlarged in the lung base. Right chest tube has been slightly repositioned. Confluent consolidation in the right lower lung again noted. Left lung appears clear and is better aerated today. ET tube and NG tube remain in place. Mediport ca theter is unchanged. IMPRESSION: Slightly enlarging right pneumothorax. POS: AGW
[2019-11-27 07:59] LABS: Puncture Site RRA
[2019-11-27] MEDS: methylPREDNISolone Sod Succ/PF 125 MG/2 ML VIAL IVP SCH ×2 (08:35→20:32)
[2019-11-27] MEDS: FLUoxetine HCl 20 MG CAP PO SCH (08:36)
[2019-11-27] MEDS: Famotidine 20 MG TAB PO SCH (08:36)
[2019-11-27] MEDS: Ascorbic Acid 500 mg Chewable Tablet PO SCH (08:37)
[2019-11-27] MEDS: Gabapentin 300 MG CAP PO SCH ×3 (08:37→20:34)
[2019-11-27] MEDS: Minoxidil 2.5 MG TAB PO SCH (08:39)
[2019-11-27] MEDS: Spironolactone 25 MG TAB PO SCH (08:40)
[2019-11-27] MEDS: Isosorbide Dinitrate 5 MG TAB PO SCH ×3 (08:45→20:34)
[2019-11-27] MEDS: Vecuronium 10 MG VIAL IVP PRN ×2 (09:02→09:35)
[2019-11-27] MEDS: hydrALAZINE 25 MG TAB PO SCH ×3 (09:02→20:34)
[2019-11-27] MEDS: Labetalol 100 MG TAB PO SCH ×3 (09:04→20:35)
[2019-11-27] MEDS ORDERED: Lidocaine 1% (PF) 30 ML VIAL ONE ×2 (09:13→15:26)
[2019-11-27] MEDS: Sodium Chloride 0.45% 1,000 ML IV SCH ×2 (09:30→19:39)
--- NOTE | 2019-11-27 09:37 | PRG ---
DATE OF SERVICE: 11/27/2019 35 minutes of critical care time. SUBJECTIVE: The patient remains intubated on mechanical ventilation. She was placed in a supine position last night. She has a chest tube on the right. OBJECTIVE: VITAL SIGNS: Temperature 98.1, pulse 79, blood pressure 139/84, O2 saturation 91%. 24-hour intake 2781, output 2420. HEENT: Unremarkable except for being intubated. NECK: No JVD. LUNGS: Crepitus anteriorly bilaterally worse on the right. She has right-sided chest tube that has air leak, but the suction was not very high, so I have turned that up. CARDIOVASCULAR: S1 and S2. Regular. ABDOMEN: Soft. EXTREMITIES: No edema. LABORATORY DATA: Sodium 140, potassium 3.6, chloride 105, CO2 of 22, BUN 100, creatinine 2.0, and glucose 249. White blood cell count 8.6, hematocrit 32.8, and platelet count 277. The pH of 7.44, pCO2 of 33, pO2 of 63. X-ray shows a continued right-sided pneumothorax. However, that x-ray was taken before the patient's suction was turned up this morning. ASSESSMENT: 1. COVID-19 pneumonia. 2. Right-sided pneumothorax. 3. Blood sugars out of control. 4. Staphylococcus bacteremia. 5. Hypertension. PLAN: 1. I placed her on bilevel ventilation. 2. We will initiate continuous paralysis to help facilitate ventilator compliance. 3. Continue steroids. 4. I will go ahead and increase the insulin doses. Job ID: [id number]
--- NOTE | 2019-11-27 10:24 | CON ---
DATE OF CONSULTATION: 11/26/2019 REASON FOR CONSULTATION: Bacteremia. HISTORY OF PRESENT ILLNESS: A 64-year-old with a history of Crohn disease, type 2 diabetes, hyperlipidemia, hypertension. She also has had episodes of small bowel obstruction in the past, which culminated in resection of segment of ileum by Dr. Mora. This was carried out in May 2016. Subsequently, she had another episode of obstructive findings, which was dealt with by laparoscopic lysis of adhesions. The patient had been on Remicade in the past for management of Crohn disease. She has quite a bit of premorbid various complications related to her chronic illnesses, and this time she was brought into the hospital on November 20 because of lethargy for several hours before admission. On arrival, EMS identified hypoxemia in the low 80s, which did not improve with supplemental oxygen. Of note, the patient had tested positive for COVID on November 18. Initially, the patient had a BP of 140/109. She was tachycardic with a temperature of 100.8 and saturating at 85 on 4 L. There was moderate respiratory distress with clear breath sounds. She was tachycardic. Initial white cell count 7.5, hemoglobin 15, platelets 244 with 87% neutrophils, and D-dimer is 12. Initial pH 7.3, pCO2 of 56, PO2 of 85, and her potassium 6.3, creatinine 2.73 with a baseline fidelia of 1.52 in March 2019. Urinalysis on admission was fairly unremarkable except for proteinuria, and repeat COVID test on November 20 was positive. Initial imaging included a chest x- ray with evidence of pulmonary edema and cardiomegaly. She had an endotracheal tube already in place. The same day a few hours later, there was evidence of a right subclavian port catheter in place with the tip in the superior vena cava and a left subclavian central venous catheter in place with tip near cavoatrial junction. She had to be placed on prone position, given a bicarbonate drip and a dose of Kayexalate. She was switched to hydrocortisone, and Nephrology consultation was obtained and extensive airspace opacities remained in place, and on November 20, the day of admission, two sets of blood cultures returned positive for Staphylococcus aureus with methicillin-susceptible phenotype. Echocardiogram performed previously was from May and was not done this time because of COVID status. The patient developed right-sided pneumothorax and has had a chest tube inserted today. She is being is ventilated with 90% FiO2 and a PEEP of 5. She has a Quevedo catheter and a subclavian catheter. She has a port in the right subclavian and this must be an old port because of IV access issues due to her multiple past admissions and this is quite significant to her current presentation, and in addition to that, she has a left subclavian central line. PAST MEDICAL HISTORY: Includes hypertension, chronic renal failure, Crohn disease with prior small-bowel obstructions which have required segmental ileal resection in the past as well as adhesiolysis via laparoscopy. She has had coronary disease as well, hyperlipidemia, type 2 diabetes, COPD, and pancreatitis. SURGICAL HISTORY: Laparoscopy x2 for management of SBO, once the patient required segmental resection of ileal segment, pathology was consistent with necrosis and obstructive features; cholecystectomy; hysterectomy; and she has had a port placed in the right subclavian, which is still in-situ. SOCIAL HISTORY: Had been living with family. ALLERGIES: NONE. CURRENT MEDICATIONS: Include; 1. Vitamin C. 2. Cefepime. 3. Lovenox. 4. Fentanyl. 5. Neurontin. 6. Insulin. 7. Labetalol. 8. Levothyroxine. 9. Minoxidil. 10. Methylprednisolone. 11. Nicardipine. SOCIAL HISTORY: Current smoker. No drug use. Lives in [place]. PHYSICAL EXAMINATION: VITAL SIGNS: T-max 100.3 two days ago, she is now 97.0. BP 130/73, pulse 80. FiO2 of 90, O2 saturation 97, respiratory rate 26. SKIN: Shows the left subclavian central line, the right port. I was not able to evaluate the right port because of the prone position. HEENT: She has periorbital swelling. Could not evaluate her orbits or pupils because of prone position. The nurse did not notice anything unusual. Pupils are pinpoint as expected. Orotracheal intubation. LUNGS: Symmetric air entry, fairly symmetric clear breath sounds. HEART AND ABDOMEN: Could not evaluate her heart sounds because of prone position or her abdomen either. EXTREMITIES: She has no edema in lower extremities. NEUROLOGIC: Could not evaluate her neurological exam due to sedation. LABORATORY DATA: The most recent white cell count is 12.7, hemoglobin 11.8, MCV 98, platelets 291, and 89% neutrophils. D-dimer 13.62, creatinine 2.73, AST 52, alkaline phosphatase 138, CK 191. The transaminases have normalized. CK is still elevated, but not as much as before. Albumin is down to 2.8, globulin 4.2, creatinine 2.26. She had a brain CT on admission with chronic parenchymal changes. ASSESSMENT: 1. Type 2 diabetes. 2. Crohn disease with prior small bowel obstruction, which required intervention. 3. Chronic obstructive pulmonary disease/asthma. 4. Hypertension. 5. Recently identified COVID seropositive status on 11/19/2019. It is not clear the duration of symptoms that led to testing. 6. Altered mental state and methicillin-sensitive Staphylococcus aureus bacteremia, which was acquired in the community. 7. Port in-situ. This was placed elsewhere and has been there for unknown duration of time, probably being used for management of her Crohn disease for IV access. 8. Spontaneous pneumothorax, which required chest tube placement, right side. 9. Respiratory failure, requiring prone positioning. 10. Diffuse bilateral pulmonary infiltrates, either pulmonary edema or pneumonic infiltrates. DISCUSSION: This case is quite interesting because despite of the COVID positive serology, she has the bacteremia with Staphylococcus aureus, which was present on admission. Therefore, this is community-acquired bacteremia, and may be the culprit here behind her clinical decompensation that led to admission rather than the COVID infectious process. For example, she may have colonization of the port, endocarditis, and septic pulmonary complications from the Staphylococcal infection as the primary process here in addition to the COVID. She may also have DIRECTOR [employer]HE[employer] complications, for example septic emboli, which were not picked up by the noncontrast CT scan. At this point, we will switch her to oxacillin IV, discontinue cefepime, and I would advise removal of the port in the right subclavian location, which is most likely the culprit here. She may have in addition to that, tricuspid valve endocarditis with pulmonary septic emboli. Job ID: [id number] [facility]
--- NOTE | 2019-11-27 11:05 | RAD ---
PORTABLE CHEST: INDICATIONS: Pneumothorax followup. COMPARISON: Comparison made to film earlier this morning at 5:50 a.m. FINDINGS: The right chest tube has been slightly repositioned. The right pneumothorax is again seen but is smal ler than on the film earlier this morning. A small pneumothorax is now seen along the lateral right c hest wall. The right lung infiltrative changes remain stable. The left lung is well aerated and stable in appear ance. ET tube and NG tube remain in place and are unchanged. IMPRESSION: Decrease in the size of the right pneumothorax when compared to film earlier today. POS: AGW
[2019-11-27] MEDS: NPH, Human Insulin Isophane 300 UNIT/3 ML VIAL SC SCH ×2 (11:30→20:38)
[2019-11-27] MEDS: Cholecalciferol (Vitamin D3) 400 UNITS TAB PER TUBE SCH (11:32)
[2019-11-27] MEDS: Oxacillin 2 GM in Sodium Chloride 0.9% 100 ML IVPB SCH ×4 (11:48→20:31)
[2019-11-27] MEDS: Enoxaparin Sodium 80 MG/0.8 ML SYRINGE SC SCH (20:32)
[2019-11-27] MEDS: OLANZapine 5 MG TAB PO SCH (20:33)
--- NOTE | 2019-11-27 21:30 | PDOC.HOSPP ---
- Subjective Encounter Date: 11/27/19 Encounter Time: 11:00 Subjective: Patient was seen and examined in bed. She has been supinated but still on ventilator support. No acute events overnight. - Objective Vital Signs & Weight: Vital Signs (12 hours) Temp Pulse Resp BP Pulse Ox 11/27/19 20:35 83 153/89 H 11/27/19 20:34 78 153/89 H 11/27/19 20:00 26 H 11/27/19 19:00 98.0 F 11/27/19 18:56 76 127/83 11/27/19 18:00 26 H 11/27/19 16:00 97.4 F L 26 H 96 11/27/19 15:00 73 101/72 11/27/19 14:21 73 101/72 11/27/19 14:00 26 H 11/27/19 12:09 78 145/86 H 11/27/19 12:00 98.0 F 26 H 11/27/19 10:04 78 186/108 H 11/27/19 10:00 26 H Weight Admit Weight 197 lb Weight 195 lb 12.8 oz Most Recent Monitor Data Heart Rate from ECG 81 NIBP 150/88 NIBP BP-Mean 108 Respiration from ECG 27 SpO2 96 I&O: 11/26/19 11/27/19 11/28/19 06:59 06:59 06:59 Intake Total 3694 2781.1 1239 Output Total 2800 2420 1105 Balance 894 361.1 134 Result Diagrams: 11/27/19 04:15 11/27/19 04:15 Additional Labs: Accuchecks 11/27/19 11/27/19 11/27/19 19:37 16:53 12:24 POC Glucose 195 H 203 H 214 H 11/27/19 11/27/19 11/26/19 07:36 04:23 21:04 POC Glucose 234 H 209 H 279 H 11/26/19 11/26/19 11/26/19 18:49 16:08 10:59 POC Glucose 278 H 303 H 301 H 11/26/19 01:26 POC Glucose 386 H Hospitalist ROS - Medication Medications: Active Medications Generic Name Dose Route Start Last Admin Trade Name Freq PRN Reason Stop Dose Admin Acetaminophen 650 mg 11/21/19 05:39 11/21/19 13:23 Tylenol [place] 650 mg Q6H PRN Administration Fever > 101 or Mild Pain Acetaminophen 650 mg 11/24/19 16:43 11/24/19 16:47 Tylenol Elixir PER TUBE 650 mg Q6H PRN Administration Fever > 100.3 Ascorbic Acid 1,000 mg 11/25/19 09:00 11/27/19 08:37 Vitamin C PO 1,000 mg DAILY JOSSY Administration Cholecalciferol 400 units 11/27/19 09:00 11/27/19 11:32 Vitamin D PER TUBE 400 units DAILY JOSSY Administration Clonidine 0.3 mg 11/23/19 13:00 11/23/19 13:35 Fodwxefo-Jhy-8 TD 0.3 mg Q7D JOSSY Administration Dextrose/Water 25 gm 11/21/19 04:06 11/21/19 04:21 Dextrose 50% SLOW IVP 25 gm PRN PRN Administration Hypoglycemia Enoxaparin Sodium 80 mg 11/25/19 21:00 11/27/19 20:32 Lovenox SC 80 mg 2100 JOSSY Administration Famotidine 20 mg 11/24/19 09:00 11/27/19 08:36 Pepcid PO 20 mg DAILY JOSSY Administration Fluoxetine HCl 60 mg 11/22/19 09:00 11/27/19 08:36 Prozac PO 60 mg DAILY JOSSY Administration Gabapentin 600 mg 11/21/19 15:00 11/27/19 20:34 Neurontin PO 600 mg TID JOSSY Administration Hydralazine HCl 100 mg 11/23/19 15:00 11/27/19 20:34 Apresoline PO 100 mg TID JOSSY Administration Fentanyl Citrate 2,000 mcg/ 100 mls @ 0 mls/hr 11/21/19 00:42 11/22/19 17:25 Sodium Chloride IV 12/21/19 00:42 100 mls INF JOSSY Administration Protocol Per Protocol Sodium Chloride 1,000 mls @ 75 mls/hr 11/23/19 13:45 11/27/19 19:39 1/2 Normal Saline IV 1,000 mls .[id number] JOSSY Administration Nicardipine HCl 50 mg/ Sodium 250 mls @ 0 mls/hr 11/24/19 09:45 11/26/19 18:34 Chloride IV 250 mls INF JOSSY Administration Protocol As Directed Oxacillin Sodium 2 gm/ Sodium 100 mls @ 200 mls/hr 11/27/19 09:00 11/27/19 20:31 Chloride IVPB 100 mls Q4HR JOSSY Administration Insulin Human Lispro 0 units 11/24/19 10:33 11/27/19 17:00 Humalog SC 4 unit .MODERATE SLIDING SC PRN Administration Moderate Correctional Scale Insulin Human NPH 40 unit 11/27/19 09:00 11/27/19 20:38 Humulin N SC 40 unit Q12HR JOSSY Administration Isosorbide Dinitrate 20 mg 11/25/19 15:00 11/27/19 20:34 Isordil PO 11/28/19 12:00 20 mg TID JOSSY Administration Labetalol HCl 400 mg 11/25/19 21:00 11/27/19 20:35 Normodyne PO 400 mg BID JOSSY Administration Levothyroxine Sodium 100 mcg 11/22/19 06:00 11/27/19 05:22 Synthroid PO 100 mcg 0600 JOSSY Administration Lorazepam 2 mg 11/21/19 02:24 11/25/19 23:53 Ativan SLOW IVP 12/21/19 02:24 2 mg Q1H PRN Administration Breakthrough agitation Methylprednisolone Sodium Succinate 80 mg 11/24/19 21:00 11/27/19 20:32 Solu-Medrol IVP 80 mg Q12HR JOSSY Administration Minoxidil 5 mg 11/26/19 09:00 11/27/19 08:39 Minoxidil PO 5 mg DAILY JOSSY Administration Morphine Sulfate 2 mg 11/21/19 02:24 11/21/19 05:38 Morphine SLOW IVP 12/21/19 02:24 2 mg Q1H PRN Administration Breakthrough Pain/Agitation Olanzapine 10 mg 11/23/19 21:00 11/27/19 20:33 Zyprexa PO 10 mg HS JOSSY Administration Propofol 1,000 mg 11/21/19 02:24 11/27/19 13:47 Diprivan IV 12/21/19 02:24 1,000 mg INF PRN Administration TO ACHIEVE GOAL RASS Protocol Sodium Chloride 10 ml 11/25/19 09:00 11/27/19 20:31 Flush - Normal Saline IVF 10 ml Q12HR JOSSY Administration Spironolactone 50 mg 11/25/19 09:00 11/27/19 08:40 Aldactone PO 50 mg DAILY JOSSY Administration - Exam General - other findings: Patient supine. Ventilator support. Right chest tube in place Heart - other findings: S1-S2 present and normal. No murmurs gallops or rubs Respiratory - other findings: Close personal bilaterally. Gastrointestinal - other findings: No organomegaly Extremities - other findings: No edema noted Hosp A/P - Plan 64-year-old female patient admitted in the ICU on ventilator support on account of acute hypoxic respiratory failure with COVID pneumonia. Also has Staphylococcus bacteremia and severe hypertension. Acute hypoxic respiratory failure Secondary to COVID pneumonia Continue ventilator management Pulmonology following. COVID pneumonia Continues tolerating anticoagulation Also on steroids. Continue close monitoring. Staph aureus bacteremia Continue on oxacillin ID followingrecommends removal of port Severe hypertension Was on nicardipine drip Also on spironolactone, minoxidil, isosorbide dinitrate and hydralazine Continue blood pressure monitoring. Poorly controlled blood sugars. Likely secondary to steroids Was on glargine now on NPH 40 every 12 Continue moderate correctional dosing Sugar control improving Hypothyroidism Continue levothyroxine VTE prophylaxistherapeutic: Lovenox Dispositionpending improvement. Prognosis is generally poor.
[2019-11-28] MEDS: Oxacillin 2 GM in Sodium Chloride 0.9% 100 ML IVPB SCH ×6 (01:05→19:45)
[2019-11-28] MEDS: Propofol 1,000 MG/100 ML VIAL IV PRN ×3 (01:21→19:35)
[2019-11-28] MEDS: Vecuronium 10 MG VIAL IVP PRN ×4 (04:10→19:47)
[2019-11-28 04:55] LABS: Band 7 % (5-11); Hemoglobin 12.4 g/dL (12.0-16.0); Lymphocytes 1 % (21-51); MDiff Complete? YES; Mean Corpuscular HGB CONC 31.7 g/dL (32.0-36.0); Mean Corpuscular Hemoglobin 30.6 pg (27.0-31.0); Mean Corpuscular Volume 96.8 fL (78.0-98.0); Mean Platelet Volume 9.3 fL (7.4-10.4); Monocytes 4 % (0-10); Platelet Count 313 thou/uL (130-400); RBC Distribution Width 14.3 % (11.5-14.5); Red Blood Cell (RBC) Count 4.06 mill/uL (4.20-5.40); White Blood Cell (WBC) Count 12.2 thou/uL (4.8-10.8)
[2019-11-28 04:58] LABS: ALT (SGPT) 11 U/L (8-55); AST (SGOT) 19 U/L (5-34); Albumin 2.8 g/dL (3.4-4.8); Alkaline Phosphatase 135 U/L (40-110); Anion Gap 17 mmol/L (10-20); BUN (Urea Nitrogen) 100 mg/dL (9.8-20.1); Bilirubin, Total 0.4 mg/dL (0.2-1.2); Calc. Creatinine Clearance 39 mL/min (70-130); Calcium 8.7 mg/dL (7.8-10.44); Carbon Dioxide 22 mmol/L (23-31); Chloride 107 mmol/L (98-107); Estimated GFR-MDRD 30; Globulin 3.9 g/dL (2.4-3.5); Glucose 102 mg/dL (80-115); Potassium 3.8 mmol/L (3.5-5.1); Protein, Total 6.7 g/dL (6.0-8.3); Sodium 142 mmol/L (136-145)
[2019-11-28] MEDS: Levothyroxine Sodium 100 MCG TAB PO SCH (06:47)
[2019-11-28 07:43] LABS: Actual Bicarbonate (HCO3a) 21.2 mEq/L (22-28); Base Excess (BEa) -2.1 mEq/L (-2.0 to +3.0); CO2 Tension 31.9 mmHg (35.0-45.0); Carboxyhemoglobin (COHb) 0.3 gm% (0.0-3.0); Hemoglobin (Hb) 12.3 g/dL (12.0-16.0); O2 Tension (PaO2), arterial 76.8 mmHg (> 80.0); Potassium - ABG Lab 3.68 mmol/L (3.70-5.30); pH, Arterial 7.44 (7.35-7.45)
--- NOTE | 2019-11-28 07:51 | RAD ---
Chest one view HISTORY: Pneumonia. Follow-up. COMPARISON: 11/27/2019. FINDINGS: Cardiac silhouette is magnified and enlarged. Pulmonary vasculature slightly engorged. More than on the prior study. Patient is rotated leftward. Right thoracostomy tubes remain in place. Right subclavian Mediport no l onger evident. Other lines and tubes unchanged in position. No pneumothorax are apparent. Atelectasis at the right base similar in appearance to the prior study. IMPRESSION : Resolution right pneumothorax. Persistent right basilar atelectasis. Interval removal of right subclavian Mediport. Other findings are stable.
[2019-11-28 08:05] LABS: Puncture Site RRA
[2019-11-28 08:06] LABS: ALV-art Gradient 418.075 (0-20)
[2019-11-28] MEDS: Labetalol 100 MG TAB PO SCH ×3 (09:00→19:43)
[2019-11-28] MEDS: NPH, Human Insulin Isophane 300 UNIT/3 ML VIAL SC SCH ×3 (09:00→19:44)
[2019-11-28] MEDS: Cholecalciferol (Vitamin D3) 400 UNITS TAB PER TUBE SCH (09:16)
[2019-11-28] MEDS: hydrALAZINE 25 MG TAB PO SCH ×3 (09:16→19:43)
[2019-11-28] MEDS: FLUoxetine HCl 20 MG CAP PO SCH (09:17)
[2019-11-28] MEDS: Ascorbic Acid 500 mg Chewable Tablet PO SCH (09:17)
[2019-11-28] MEDS: Spironolactone 25 MG TAB PO SCH (09:20)
[2019-11-28] MEDS: Gabapentin 300 MG CAP PO SCH ×3 (09:20→19:42)
[2019-11-28] MEDS: methylPREDNISolone Sod Succ/PF 125 MG/2 ML VIAL IVP SCH ×2 (09:22→19:44)
[2019-11-28] MEDS: Famotidine 20 MG TAB PO SCH (09:22)
[2019-11-28] MEDS: Minoxidil 2.5 MG TAB PO SCH (09:23)
[2019-11-28] MEDS: Isosorbide Dinitrate 5 MG TAB PO SCH (09:38)
--- NOTE | 2019-11-28 09:42 | PDOC.EVN ---
Event Note - Event Note Event Note: Progress note 11/28/2019 dictated. [id number]
[2019-11-28] MEDS: Sodium Chloride 0.45% 1,000 ML IV SCH ×2 (10:02→23:00)
--- NOTE | 2019-11-28 10:07 | PRG ---
DATE OF SERVICE: 11/28/2019 SERVICE: Nephrology. SUBJECTIVE: A 64-year-old female with known history of CKD, Crohn disease, seen in followup for acute on chronic kidney disease as well as hypertension. No new problem. Still intubated and mechanically ventilated. Remained afebrile. OBJECTIVE: VITAL SIGNS: Temperature 97.6, pulse 76, respiratory rate 26, blood pressure 162/86. I and O in the last 24 hours showed total intake of 2532 with output of 2530. GENERAL: Obese female, sedated and mechanically ventilated. Afebrile. Anicteric. HEENT: Normocephalic, atraumatic. ET tube is in place. CARDIOVASCULAR: Regular rhythm and rate with normal heart sounds 1 and 2. RESPIRATORY: Ventilator transmitted breath sounds noted. Right-sided chest tubes noted as well. GI: Obese, soft, nontender, nondistended with normal bowel sounds. UROGENITAL: Quevedo catheter is in place draining urine. EXTREMITIES: Grossly normal looking atraumatic with no edema. 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 DIAGNOSTIC DATA: CBC showed WBC count of 12.2, hemoglobin of 12.4, platelet of 313. Chemistry showed sodium 142, potassium 3.8, chloride 107, CO2 of 22, BUN 100, creatinine 2.03, glucose 102, calcium 8.7, total bilirubin 0.4, total protein 6.7, albumin 2.8. ASSESSMENT: 1. Hypertension: Improved. However, the patient had an episode of hypotension yesterday morning. Off Cardene drip. 2. Primary hyperaldosteronism. 3. Acute kidney injury: Resolved. Creatinine is back to recent baseline. 4. Chronic kidney disease stage 3. 5. Isolated elevated BUN: Due to catabolic state, steroid on some component of chronic kidney disease. There is no evidence of GI bleeding as hemoglobin is fairly stable. Expected to increase further with recommencement of tube feedings. 6. Septic shock: Resolved. 7. Staph aureus bacteremia. 8. COVID pneumonia. 9. Acute respiratory failure due to COVID pneumonia. 10. Right-sided pneumothorax, status post chest tube placement. 11. Diabetes mellitus with hyperglycemia. PLAN: 1. Continue supportive care. 2. Avoid nephrotoxic agent. 3. Follow renal function. 4. Decrease steroid if possible. Job ID: [id number]
--- NOTE | 2019-11-28 10:40 | PRG ---
DATE OF SERVICE: 11/28/2019 35 minutes of critical care time. SUBJECTIVE: The patient remains intubated on mechanical ventilation. She has 2 chest tubes in on the right. OBJECTIVE: VITAL SIGNS: Temperature 97.6, pulse 78, blood pressure 162/98, O2 saturation 94%. NEUROLOGIC: I cannot get her to follow any commands. HEENT: Remarkable for conjunctival edema and orally placed endotracheal tube. NECK: No JVD. LUNGS: Coarse breath sounds with pleural rub on the right. She has air leak in the right chest tubes. CARDIOVASCULAR: S1, S2. Tachycardic. ABDOMEN: Soft and nontender. EXTREMITIES: Edematous. LABORATORY DATA: Sodium 142, potassium 3.8, chloride 107, CO2 of 22, BUN 100, creatinine 2.0, glucose 102. PH 7.44, pCO2 of 31, pO2 of 76 on bilevel, rate 26 and FiO2 of 75%. A-a gradient is 418. D-dimer is 5.52. White blood cell count 12.2, hematocrit 39.3, and platelet count 313. Chest x-ray demonstrates improved pneumothorax on the right, still with bilateral infiltrates, cardiomegaly. ASSESSMENT: 1. COVID-19 pneumonia. 2. Right-sided pneumothorax. 3. Acute hypoxic respiratory failure, requiring mechanical ventilation. PLAN: 1. She is not weanable at this time. Continue anticoagulation, mechanical ventilation, steroids. Prognosis quite poor for functional recovery. 2. We will adjust the patient's NPH insulin. Job ID: [id number]
--- NOTE | 2019-11-28 12:51 | PRG ---
DATE OF SERVICE: 11/27/2019 SERVICE: Nephrology. SUBJECTIVE: A 64-year-old female, admitted due to acute respiratory failure and acute encephalopathy, seen by Nephrology for acute kidney injury and electrolyte derangement. The patient also has poorly-controlled hypertension. Developed pneumothorax, status post chest tube placement. Still intubated and mechanically ventilated. OBJECTIVE: VITAL SIGNS: Temperature 97.7, pulse 75, respiratory rate 26, SpO2 of 95% on the ventilator, blood pressure is 149/89. I and O in the last 24 hours showed total intake of 2781 with output of 2420. GENERAL: Obese female, in no distress. Sedated. HEENT: Normocephalic, atraumatic. Oral mucosa is moist. ET tube is in place. CARDIOVASCULAR: Regular rhythm and rate with normal heart sounds 1 and 2. RESPIRATORY: Ventilator transmitted breath sounds are noted. Right-sided double chest tubes in place. GI: Obese, soft, nontender, nondistended with hypoactive bowel sounds. UROGENITAL: Quevedo catheter is in place draining some urine. EXTREMITIES: Grossly normal looking, atraumatic with no obvious edema. 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 DIAGNOSTIC DATA: CBC showed WBC count of 8.6, hemoglobin of 10.9, and platelets of 277. Chemistry showed sodium 140, potassium 3.6, chloride 105, CO2 of 22, BUN 100, creatinine 2.04, glucose 249, calcium 8.9, total bilirubin 6.3, and albumin 2.6. ASSESSMENT: 1. Isolated increase in BUN: Due to catabolic state promoted by acute illness as well as use of steroid as well as a high-protein diet. Some contribution from acute kidney injury superimposed on chronic kidney disease is noted, however, creatinine has been trending downwards. 2. Acute kidney injury: Due to hemodynamic factors. Improved. Creatinine is down from 3.03 to 2.04. 3. Chronic kidney disease, stage 3/4. 4. 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 Blood pressure is better. The patient is currently off Cardene infusion. 5. Primary hyperaldosteronism. 6. Acute respiratory failure, initially due to COVID pneumonia and septic shock with some contribution currently from pneumothorax. 7. Septic shock. 8. Staph bacteremia. 9. COVID pneumonia. 10. Diabetes mellitus with hyperglycemia. PLAN: 1. Continue supportive care. 2. We will continue current antihypertensives and adjust dose to get adequate BP control. 3. Continue to avoid nephrotoxic agents including VEGA krish in this patient. 4. We recommend reduction of steroid if possible due to isolated progressive increase in BUN. There is no need for hemodialysis at this point. The patient is currently off tube feeding due to paralytics. Hopefully, this will help increase in BUN. We will recheck renal function test in the morning. Further treatment to follow depending on hospital course. Job ID: [id number]
--- NOTE | 2019-11-28 14:23 | PDOC.HOSPP ---
- Subjective Encounter Date: 11/28/19 Encounter Time: 13:00 Subjective: Patient was seen and examined in bed. She was supine on the ventilator. No significant events overnight. - Objective Vital Signs & Weight: Vital Signs (12 hours) Temp Pulse Resp BP Pulse Ox 11/28/19 12:00 97.6 F 26 H 11/28/19 11:01 80 116/71 11/28/19 10:00 26 H 11/28/19 09:18 76 162/86 H 11/28/19 09:16 76 162/86 H 11/28/19 09:00 76 162/86 H 11/28/19 08:00 26 H 93 L 11/28/19 07:00 97.6 F 11/28/19 06:00 26 H 11/28/19 04:00 97.9 F 26 H 11/28/19 02:33 76 123/76 Weight Admit Weight 197 lb Weight 196 lb 1.6 oz Most Recent Monitor Data Heart Rate from ECG 78 NIBP 131/88 NIBP BP-Mean 102 Respiration from ECG 26 SpO2 93 I&O: 11/27/19 11/28/19 11/29/19 06:59 06:59 06:59 Intake Total 2781.1 2532 450 Output Total 2420 2530 580 Balance 361.1 2 -130 Result Diagrams: 11/28/19 04:00 11/28/19 04:00 Additional Labs: Accuchecks 11/28/19 11/28/19 11/27/19 12:46 09:56 19:37 POC Glucose 67 L 79 195 H 11/27/19 16:53 POC Glucose 203 H Hospitalist ROS - Medication Medications: Active Medications Generic Name Dose Route Start Last Admin Trade Name Freq PRN Reason Stop Dose Admin Acetaminophen 650 mg 11/21/19 05:39 11/21/19 13:23 Tylenol ND 650 mg Q6H PRN Administration Fever > 101 or Mild Pain Acetaminophen 650 mg 11/24/19 16:43 11/24/19 16:47 Tylenol Elixir PER TUBE 650 mg Q6H PRN Administration Fever > 100.3 Ascorbic Acid 1,000 mg 11/25/19 09:00 11/28/19 09:17 Vitamin C PO 1,000 mg DAILY JOSSY Administration Cholecalciferol 400 units 11/27/19 09:00 11/28/19 09:16 Vitamin D PER TUBE 400 units DAILY JOSSY Administration Clonidine 0.3 mg 11/23/19 13:00 11/23/19 13:35 [id number] TD 0.3 mg Q7D JOSSY Administration Dextrose/Water 25 gm 11/21/19 04:06 11/21/19 04:21 Dextrose 50% SLOW IVP 25 gm PRN PRN Administration Hypoglycemia Enoxaparin Sodium 80 mg 11/25/19 21:00 11/27/19 20:32 Lovenox SC 80 mg 2100 JOSSY Administration Famotidine 20 mg 11/24/19 09:00 11/28/19 09:22 Pepcid PO 20 mg DAILY JOSSY Administration Fluoxetine HCl 60 mg 11/22/19 09:00 11/28/19 09:17 Prozac PO 60 mg DAILY JOSSY Administration Gabapentin 600 mg 11/21/19 15:00 11/28/19 09:20 Neurontin PO 600 mg TID JOSSY Administration Hydralazine HCl 100 mg 11/23/19 15:00 11/28/19 09:16 Apresoline PO 100 mg TID JOSSY Administration Fentanyl Citrate 2,000 mcg/ 100 mls @ 0 mls/hr 11/21/19 00:42 11/22/19 17:25 Sodium Chloride IV 12/21/19 00:42 100 mls INF JOSSY Administration Protocol Per Protocol Sodium Chloride 1,000 mls @ 75 mls/hr 11/23/19 13:45 11/28/19 10:02 1/2 Normal Saline IV 1,000 mls .[id number] JOSSY Administration Nicardipine HCl 50 mg/ Sodium 250 mls @ 0 mls/hr 11/24/19 09:45 11/26/19 18:34 Chloride IV 250 mls INF JOSSY Administration Protocol As Directed Oxacillin Sodium 2 gm/ Sodium 100 mls @ 200 mls/hr 11/27/19 09:00 11/28/19 12:32 Chloride IVPB 100 mls Q4HR JOSSY Administration Insulin Human Lispro 0 units 11/24/19 10:33 11/27/19 17:00 Humalog SC 4 unit .MODERATE SLIDING SC PRN Administration Moderate Correctional Scale Insulin Human NPH 30 unit 11/28/19 09:00 11/28/19 09:00 Humulin N SC Not Given Q12HR JOSSY Labetalol HCl 200 mg 11/28/19 09:00 11/28/19 09:00 Normodyne PO Not Given BID JOSSY Levothyroxine Sodium 100 mcg 11/22/19 06:00 11/28/19 06:47 Synthroid PO 100 mcg 0600 JOSSY Administration Lorazepam 2 mg 11/21/19 02:24 11/25/19 23:53 Ativan SLOW IVP 12/21/19 02:24 2 mg Q1H PRN Administration Breakthrough agitation Methylprednisolone Sodium Succinate 80 mg 11/24/19 21:00 11/28/19 09:22 Solu-Medrol IVP 80 mg Q12HR JOSSY Administration Minoxidil 5 mg 11/26/19 09:00 11/28/19 09:23 Minoxidil PO Not Given DAILY JOSSY Morphine Sulfate 2 mg 11/21/19 02:24 11/21/19 05:38 Morphine SLOW IVP 12/21/19 02:24 2 mg Q1H PRN Administration Breakthrough Pain/Agitation Olanzapine 10 mg 11/23/19 21:00 11/27/19 20:33 Zyprexa PO 10 mg HS JOSSY Administration Propofol 1,000 mg 11/21/19 02:24 11/28/19 07:03 Diprivan IV 12/21/19 02:24 1,000 mg INF PRN Administration TO ACHIEVE GOAL RASS Protocol Sodium Chloride 10 ml 11/25/19 09:00 11/28/19 09:21 Flush - Normal Saline IVF 10 ml Q12HR JOSSY Administration Spironolactone 50 mg 11/25/19 09:00 11/28/19 09:20 Aldactone PO 50 mg DAILY JOSSY Administration Vecuronium [place] 10 mg 11/27/19 08:50 11/28/19 10:00 Norcuron IVP 10 mg Q30MIN PRN Administration Agitation - Exam General - other findings: Patient examined in bed. She was prone on the ventilator. ENT - other findings: ET tube in place Heart - other findings: S1-S2 present and normal. No murmurs gallops or rubs. Respiratory - other findings: Bilateral coarse breath sounds. Gastrointestinal - other findings: Soft, no organomegaly. Extremities - other findings: Bilateral pitting edema Hosp A/P - Plan 64-year-old female patient admitted in the ICU on ventilator support on account of acute hypoxic respiratory failure with COVID pneumonia. Also has Staphylococcus bacteremia and severe hypertension. She has generally remained unchanged however blood pressure has improved and blood glucose control is also improving. She will continue management in the ICU with pulmonology Acute hypoxic respiratory failure Secondary to COVID pneumonia Continue ventilator management Pulmonology following. Right pneumothorax Resolved on x-ray Continue monitoring. COVID pneumonia Continues tolerating anticoagulation Also on steroids. Continue close monitoring. Staph aureus bacteremia Continue on oxacillin Port has been removed ID follow Hypertensionimproved Was on nicardipine dripcurrently discontinued Also on spironolactone, minoxidil, isosorbide dinitrate and hydralazine Continue blood pressure monitoring. Poorly controlled blood sugars. Likely secondary to steroids Was on glargine now on NPH 40 every 12 Blood sugar is lower today, NPH adjusted to 30 every 12 Continue blood glucose monitoring Hypothyroidism Continue levothyroxine VTE prophylaxistherapeutic: Lovenox Dispositionpending improvement. Prognosis is generally poor.
--- NOTE | 2019-11-28 14:27 | OP ---
DATE OF PROCEDURE: 11/27/2019 PROCEDURE PERFORMED: 40-Amharic right tube thoracostomy. PREOPERATIVE DIAGNOSIS: Right-sided pneumothorax. POSTOPERATIVE DIAGNOSIS: Right-sided pneumothorax. ANESTHESIA: 1% lidocaine, local anesthesia. INDICATIONS: The patient is an obese, 64-year-old woman, intubated for COVID pneumonia. Yesterday, she was noted to have a right-sided pneumothorax that improved some with chest tube placement and her oxygen saturations dramatically improved. Overnight, she has been turned from the prone to the supine position, and although the chest tube appears to be patent, this morning's x-ray shows that her pneumothorax is larger again and her oxygen saturations have diminished. A second chest tube is now being placed. FINDINGS: Small air vaca heard upon entering the chest. DESCRIPTION OF PROCEDURE: The patient's pendulous breast was retracted cephalad with the use of tape and her right lower chest was prepped and draped in sterile fashion. A little lateral to the nipple line, near the inframammary crease at the level of the xiphoid, an incision was made sharply after first infiltrating the skin and subcutaneous tissue and appropriately prepping and draping the area. Subcutaneous tract was developed posteriorly and superiorly. Additional lidocaine was infiltrated along the superior rib margin and air bubbles were aspirated from the chest as the needle was advanced over the superior rib margin into the pleural space. Blunt dissection was used to enter the pleural space and a small air vaca was heard. Upon palpating the wound, the existing chest tube could be felt that seemed to pass anteriorly rather than posteriorly. A 40-Amharic chest tube was selected as there were no 36-Amharic chest tubes on hand and the existing 36-Amharic chest tube had not proved adequate at least in isolation, that tube was inserted and an attempt was made to pass it posterior apically. It was advanced until resistance was met and then secured to the skin with suture and connected to close suction drainage. The wound was dressed, and a postoperative chest x-ray suggested that the tube did pass posteriorly, but curved around into the costophrenic sulcus. The pneumothorax however was almost completely resolved. Job ID: [id number]
[2019-11-28] MEDS: Isosorbide Dinitrate 20 MG TAB PO SCH ×2 (15:18→19:43)
--- NOTE | 2019-11-28 17:49 | OP ---
DATE OF PROCEDURE: 11/27/2019 INDICATIONS FOR PROCEDURE: Ronda Mosqueda is a 64-year-old female, COVID positive, with respiratory failure. She has a MediPort placed for Crohn disease. Dr. Mora had seen on several occasions for laparoscopic adhesiolysis over the years. She has recurrent episodes of bacteremia and Dr. Mcdonald has asked me to see her regarding removal of her MediPort in right subclavian. This MediPort was placed elsewhere and has been used for IV access for illnesses related to her Crohn's. has consented to removal. Plan is to remove it at the bedside. PREOPERATIVE DIAGNOSES: Respiratory failure, COVID positive, bacteremia. POSTOPERATIVE DIAGNOSES: Respiratory failure, COVID positive, bacteremia. PROCEDURE PERFORMED: Removal of right subclavian vein MediPort. ANESTHESIA: 1% Xylocaine. DESCRIPTION OF PROCEDURE: With the patient at bedside while she is on the ventilator under sedation, the right paraclavicular area and chest area were prepared with ChloraPrep and draped in routine fashion. Local anesthetic with 1% Xylocaine was infiltrated into the skin and subcutaneous tissue. Incision was made through the old scar, carried down to skin and subcutaneous tissue, and the MediPort and catheter were removed intact. Subcutaneous tissue was approximated with 4-0 Monocryl and skin with subdermal 4-0 Monocryl, and Raven glue applied. The patient tolerated the procedure well. MediPort discarded. There was no evidence of infection or purulence grossly. Job ID: [id number]
[2019-11-28] MEDS: Enoxaparin Sodium 80 MG/0.8 ML SYRINGE SC SCH (19:42)
[2019-11-28] MEDS: HumaLOG 300 UNITS/3 ML VIAL SC PRN (19:45)
[2019-11-28] MEDS: OLANZapine 5 MG TAB PO SCH (19:45)
[2019-11-29] MEDS: Oxacillin 2 GM in Sodium Chloride 0.9% 100 ML IVPB SCH ×6 (00:02→20:35)
[2019-11-29] MEDS: Propofol 1,000 MG/100 ML VIAL IV PRN ×5 (01:08→20:45)
[2019-11-29] MEDS: Vecuronium 10 MG VIAL IVP PRN ×3 (02:55→13:58)
[2019-11-29 04:27] LABS: Band 4 % (5-11); Hemoglobin 11.5 g/dL (12.0-16.0); MDiff Complete? YES; Mean Corpuscular HGB CONC 33.2 g/dL (32.0-36.0); Mean Corpuscular Hemoglobin 31.8 pg (27.0-31.0); Mean Corpuscular Volume 95.9 fL (78.0-98.0); Mean Platelet Volume 9.6 fL (7.4-10.4); Monocytes 1 % (0-10); Platelet Count 350 thou/uL (130-400); RBC Distribution Width 14.3 % (11.5-14.5); Red Blood Cell (RBC) Count 3.62 mill/uL (4.20-5.40)
[2019-11-29 04:36] LABS: ALT (SGPT) 9 U/L (8-55); AST (SGOT) 15 U/L (5-34); Albumin 2.6 g/dL (3.4-4.8); Alkaline Phosphatase 129 U/L (40-110); Anion Gap 19 mmol/L (10-20); BUN (Urea Nitrogen) 97 mg/dL (9.8-20.1); Bilirubin, Total 0.3 mg/dL (0.2-1.2); Calc. Creatinine Clearance 40 mL/min (70-130); Calcium 8.4 mg/dL (7.8-10.44); Carbon Dioxide 19 mmol/L (23-31); Chloride 108 mmol/L (98-107); Estimated GFR-MDRD 31; Glucose 145 mg/dL (80-115); Potassium 4.2 mmol/L (3.5-5.1); Protein, Total 6.6 g/dL (6.0-8.3); Sodium 142 mmol/L (136-145)
[2019-11-29] MEDS: Levothyroxine Sodium 100 MCG TAB PO SCH (05:04)
[2019-11-29 07:34] LABS: Actual Bicarbonate (HCO3a) 18.1 mEq/L (22-28); CO2 Tension 28.3 mmHg (35.0-45.0); Calcium, Ionized (arterial) 1.17 mmol/L (1.12-1.30); Carboxyhemoglobin (COHb) 0.3 gm% (0.0-3.0); Hemoglobin (Hb) 12.5 g/dL (12.0-16.0); O2 Tension (PaO2), arterial 71.6 mmHg (> 80.0); Potassium - ABG Lab 4.22 mmol/L (3.70-5.30); pH, Arterial 7.42 (7.35-7.45)
--- NOTE | 2019-11-29 07:37 | RAD ---
Exam: Chest one view HISTORY:Pneumonia Comparison: 11/28/2019 FINDINGS: Lines and tubes: Redemonstration of endotracheal tube, nasogastric tube, left-sided subclavian vascul ar catheter and 2 right-sided chest tubes. Cardiac silhouette:Cardiomegaly Aorta: Atherosclerotic Pulmonary vessels: Normal Costophrenic angles: Clear LUNGS: Persistent multi focal interstitial and alveolar opacities. Stable opacification. Pneumothorax: Tiny right apical pneumothorax Osseous abnormalities: None IMPRESSION: 1. Stable opacification of the lung parenchyma. 2. Tiny right apical pneumothorax.
[2019-11-29 07:59] LABS: Puncture Site RRA
[2019-11-29 08:00] LABS: ALV-art Gradient 427.775 (0-20)
--- NOTE | 2019-11-29 09:18 | PRG ---
DATE OF SERVICE: 11/29/2019 35 minutes of critical care time. SUBJECTIVE: The patient remains intubated on mechanical ventilation. There has been no acute changes overnight. OBJECTIVE: VITAL SIGNS: Temperature 97.5, pulse 88, blood pressure 141/90, O2 saturation 94%. Intake 3492, output 2409. Weight 193 pounds. HEENT: Has extensive conjunctival edema. NECK: No JVD. LUNGS: Coarse breath sounds anteriorly bilaterally. She has air leak in right chest tube. CARDIOVASCULAR: S1 and S2 regular. ABDOMEN: Obese, soft, nontender. EXTREMITIES: Edematous. LABORATORY DATA: White blood cell count 14, hematocrit 34.7, and platelet count 315. PH 7.42, pCO2 of 28, pO2 of 71, bilevel rate 26, FiO2 of 75% with a high pressure of 36, low pressure of 10. Sodium 142, potassium 4.2, chloride 108, CO2 of 19, BUN 97, creatinine 1.9, and glucose 145. ASSESSMENT: 1. Acute respiratory failure requiring mechanical ventilation. 2. COVID-19 pneumonia. 3. Right pneumothorax. 4. Acute renal dysfunction. PLAN: 1. I have decreased her high pressure and decreased her FiO2. 2. Continue antibiotics for staphylococcal sepsis. 3. Continue NPH insulin. Job ID: [id number]
[2019-11-29] MEDS ORDERED: Sterile Water 10 ML ONE (09:31)
[2019-11-29] MEDS: Sodium Bicarbonate Tab 325 MG TAB PO SCH ×2 (09:36→20:32)
[2019-11-29] MEDS: Isosorbide Dinitrate 20 MG TAB PO SCH ×3 (09:36→21:26)
[2019-11-29] MEDS: Ascorbic Acid 500 mg Chewable Tablet PO SCH (09:37)
[2019-11-29] MEDS: Cholecalciferol (Vitamin D3) 400 UNITS TAB PER TUBE SCH (09:37)
[2019-11-29] MEDS: FLUoxetine HCl 20 MG CAP PO SCH (09:38)
[2019-11-29] MEDS: Famotidine 20 MG TAB PO SCH (09:39)
[2019-11-29] MEDS: Spironolactone 25 MG TAB PO SCH (09:39)
[2019-11-29] MEDS: Gabapentin 300 MG CAP PO SCH ×3 (09:39→20:33)
[2019-11-29 09:40] LABS: Neutrophil 95 % (42-75)
[2019-11-29] MEDS: Minoxidil 2.5 MG TAB PO SCH (09:40)
[2019-11-29] MEDS: Labetalol 100 MG TAB PO SCH ×2 (09:40→20:34)
[2019-11-29] MEDS: hydrALAZINE 25 MG TAB PO SCH ×3 (09:40→20:34)
[2019-11-29] MEDS: methylPREDNISolone Sod Succ/PF 125 MG/2 ML VIAL IVP SCH ×2 (09:41→20:33)
[2019-11-29] MEDS: Morphine 2 MG/ML VIAL SLOW IVP PRN ×2 (09:43→13:59)
[2019-11-29] MEDS: NPH, Human Insulin Isophane 300 UNIT/3 ML VIAL SC SCH ×3 (09:44→21:27)
--- NOTE | 2019-11-29 10:18 | PRG ---
DATE OF SERVICE: 11/29/2019 SERVICE: Nephrology. SUBJECTIVE: A 64-year-old female seen in followup for acute on chronic renal failure and hypertension. The patient with Crohn disease, secondary hypertension from primary hyperaldosteronism, amongst others, who was admitted due to acute encephalopathy and acute respiratory failure requiring intubation. The patient has remained intubated and mechanically ventilated. No new problems. OBJECTIVE: VITAL SIGNS: Temperature 97.5, pulse 89, respiratory rate 26, SpO2 of 94% on the ventilator with FiO2 of 75. Blood pressure is 149/97. I and O in the last 24 hours showed total intake of 3492 with output of 2405. GENERAL: Obese female, who is sedated and mechanically ventilated. Afebrile. HEENT: Normocephalic, atraumatic. ET tube and NG tube are in place. CARDIOVASCULAR: Regular rhythm and rate with normal heart sounds 1 and 2. RESPIRATORY: Ventilator transmitted breath sounds heard in all lung zones and she is tachypneic. GI: Obese, soft, nondistended with hypoactive bowel sounds. UROGENITAL: Quevedo catheter is in place draining some urine. EXTREMITIES: Grossly normal looking, atraumatic with no obvious edema. RESIDENTIAL TREATMENT COUNSELOR: The patient is sedated. DIAGNOSTIC DATA: CBC showed WBC count of 14, hemoglobin of 11.5, platelets of 350. Chemistry showed sodium 142, potassium 4.2, chloride 108, CO2 of 19, BUN 97, creatinine 1.98, glucose 145, calcium 8.4, total bilirubin , total protein 6.6, albumin 2.4. Arterial blood gas today showed pH of 7.42, pCO2 of 28.3, pO2 of 71.6, and ionized calcium of 1.15. Chest x-ray showed persistent multifocal interstitial and alveolar opacities, which are stable. Tiny right apical pneumothorax also is noted. ASSESSMENT: 1. Acute kidney injury: Due to hemodynamic factors. Improved. Creatinine is down to 1.98. 2. Isolated BUN elevation. Trending down. Most likely related to catabolic state. 3. Chronic kidney disease stage 3. 4. 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 Blood pressure control is better, but still suboptimal. The patient however is off Cardene infusion. 5. Acute respiratory failure with hypoxia requiring mechanical ventilation. 6. COVID pneumonia. 7. Septic shock: Resolved. 8. Staphylococcus bacteremia. 9. Right pneumothorax status post chest tube placements. 10. Metabolic acidosis. 11. Diabetes mellitus with hyperglycemia. PLAN: 1. We will start alkali therapy with sodium bicarbonate. 2. Continue other treatments. 3. Monitor renal function as well as electrolytes and intake and output. 4. Other treatment as per sustainable development policy analyst. 5. We will adjust antihypertensives to get adequate BP control. Job ID: [id number]
[2019-11-29 10:40] LABS: Neutrophil 88 % (42-75)
--- NOTE | 2019-11-29 12:37 | PRG ---
DATE OF SERVICE: 11/28/2019 SUBJECTIVE: The patient is intubated in the ICU. She is in supine position at the moment, sedated. OBJECTIVE: VITAL SIGNS: Temperature has been normal and sats anywhere from 93 to 96, FiO2 of 75. RESPIRATORY: Lungs sounds are symmetric. CARDIAC: S1 and S2, regular rate. ABDOMEN: Not distended. EXTREMITIES: Warm. LABORATORY DATA: White cell count 12.2, hemoglobin 12, and platelets 313. Creatinine 2.03, bilirubin 0.4, AST 19, ALT 11, alkaline phosphatase 135, and albumin 2.8. Repeat two sets of blood cultures from 11/24, no growth at 48 hours. ASSESSMENT AND DISCUSSION: Type 2 diabetes, Crohn disease on periodic TNF inhibitor infusion, port, chronic obstructive pulmonary disease, COVID pneumonia positive since November 18. Duration of symptoms, unclear. Altered mental state and MSSA bacteremia, methicillin-sensitive Staphylococcus aureus bacteremia, community-acquired. The port has been removed. The patient is currently on oxacillin to be continued and she is on methylprednisolone. Job ID: [id number] [facility]
[2019-11-29 12:52] LABS: Neutrophil 96 % (42-75)
[2019-11-29] MEDS: Sodium Chloride 0.45% 1,000 ML IV SCH (14:02)
[2019-11-29 14:43] LABS: Neutrophil 90 % (42-75)
--- NOTE | 2019-11-29 15:29 | PDOC.HOSPP ---
- Subjective Encounter Date: 11/29/19 Encounter Time: 13:00 Subjective: Patient was seen and examined in bed. She is prone however not tracking or responding. She is on ventilator support. She has chest tubes on the right. No significant events overnight. - Objective Vital Signs & Weight: Vital Signs (12 hours) Temp Pulse Resp BP Pulse Ox 11/29/19 14:07 92 129/78 11/29/19 14:00 28 H 11/29/19 13:59 98 146/92 H 11/29/19 12:00 97.9 F 26 H 11/29/19 10:38 98 146/92 H 11/29/19 10:00 26 H 11/29/19 09:40 89 149/97 H 11/29/19 08:00 97.9 F 26 H 95 11/29/19 07:21 89 149/97 H 11/29/19 06:00 26 H 11/29/19 04:00 26 H Weight Admit Weight 197 lb Weight 193 lb 9.054 oz Most Recent Monitor Data Heart Rate from ECG 88 NIBP 129/78 NIBP BP-Mean 95 Respiration from ECG 26 SpO2 94 I&O: 11/28/19 11/29/19 11/30/19 06:59 06:59 06:59 Intake Total 2532 3492 250 Output Total 2530 2405 1030 Balance 2 8306 -638 Result Diagrams: 11/29/19 03:20 11/29/19 03:20 Additional Labs: Accuchecks 11/28/19 11/28/19 11/28/19 23:30 19:49 16:38 POC Glucose 144 H 154 H 112 H Hospitalist ROS - Medication Medications: Active Medications Generic Name Dose Route Start Last Admin Trade Name Freq PRN Reason Stop Dose Admin Acetaminophen 650 mg 11/21/19 05:39 11/21/19 13:23 Tylenol [place] 650 mg Q6H PRN Administration Fever > 101 or Mild Pain Acetaminophen 650 mg 11/24/19 16:43 11/24/19 16:47 Tylenol Elixir PER TUBE 650 mg Q6H PRN Administration Fever > 100.3 Ascorbic Acid 1,000 mg 11/25/19 09:00 11/29/19 09:37 Vitamin C PO 1,000 mg DAILY JOSSY Administration Cholecalciferol 400 units 11/27/19 09:00 11/29/19 09:37 Vitamin D PER TUBE 400 units DAILY JOSSY Administration Clonidine 0.3 mg 11/23/19 13:00 11/23/19 13:35 [id number] TD 0.3 mg Q7D JOSSY Administration Dextrose/Water 25 gm 11/21/19 04:06 11/21/19 04:21 Dextrose 50% SLOW IVP 25 gm PRN PRN Administration Hypoglycemia Enoxaparin Sodium 80 mg 11/25/19 21:00 11/28/19 19:42 Lovenox SC 80 mg 2100 JOSSY Administration Famotidine 20 mg 11/24/19 09:00 11/29/19 09:39 Pepcid PO 20 mg DAILY JOSSY Administration Fluoxetine HCl 60 mg 11/22/19 09:00 11/29/19 09:38 Prozac PO 60 mg DAILY JOSSY Administration Gabapentin 600 mg 11/21/19 15:00 11/29/19 13:58 Neurontin PO 600 mg TID JOSSY Administration Hydralazine HCl 100 mg 11/23/19 15:00 11/29/19 13:59 Apresoline PO 100 mg TID JOSSY Administration Fentanyl Citrate 2,000 mcg/ 100 mls @ 0 mls/hr 11/21/19 00:42 11/22/19 17:25 Sodium Chloride IV 12/21/19 00:42 100 mls INF JOSSY Administration Protocol Per Protocol Sodium Chloride 1,000 mls @ 75 mls/hr 11/23/19 13:45 11/29/19 14:02 1/2 Normal Saline IV 1,000 mls .[id number] JOSSY Administration Nicardipine HCl 50 mg/ Sodium 250 mls @ 0 mls/hr 11/24/19 09:45 11/26/19 18:34 Chloride IV 250 mls INF JOSSY Administration Protocol As Directed Oxacillin Sodium 2 gm/ Sodium 100 mls @ 200 mls/hr 11/27/19 09:00 11/29/19 13:00 Chloride IVPB 100 mls Q4HR JOSSY Administration Insulin Human Lispro 0 units 11/24/19 10:33 11/28/19 19:45 Humalog SC 2 unit .MODERATE SLIDING SC PRN Administration Moderate Correctional Scale Insulin Human NPH 30 unit 11/28/19 09:00 11/29/19 12:32 Humulin N SC Not Given Q12HR JOSSY Isosorbide Dinitrate 20 mg 11/28/19 15:00 11/29/19 13:59 Isordil PO 20 mg TID JOSSY Administration Labetalol HCl 200 mg 11/28/19 09:00 11/29/19 09:40 Normodyne PO 200 mg BID JOSSY Administration Levothyroxine Sodium 100 mcg 11/22/19 06:00 11/29/19 05:04 Synthroid PO 100 mcg 0600 JOSSY Administration Lorazepam 2 mg 11/21/19 02:24 11/25/19 23:53 Ativan SLOW IVP 12/21/19 02:24 2 mg Q1H PRN Administration Breakthrough agitation Methylprednisolone Sodium Succinate 80 mg 11/24/19 21:00 11/29/19 09:41 Solu-Medrol IVP 80 mg Q12HR JOSSY Administration Minoxidil 5 mg 11/26/19 09:00 11/29/19 09:40 Minoxidil PO 5 mg DAILY JOSSY Administration Morphine Sulfate 2 mg 11/21/19 02:24 11/29/19 13:59 Morphine SLOW IVP 12/21/19 02:24 2 mg Q1H PRN Administration Breakthrough Pain/Agitation Olanzapine 10 mg 11/23/19 21:00 11/28/19 19:45 Zyprexa PO 10 mg HS JOSSY Administration Propofol 1,000 mg 11/21/19 02:24 11/29/19 09:43 Diprivan IV 12/21/19 02:24 1,000 mg INF PRN Administration TO ACHIEVE GOAL RASS Protocol Sodium Bicarbonate 650 mg 11/29/19 09:00 11/29/19 09:36 Bicarbonate, Sodium PO 650 mg BID [facility] Administration Sodium Chloride 10 ml 11/25/19 09:00 11/29/19 09:46 Flush - Normal Saline IVF 10 ml Q12HR JOSSY Administration Spironolactone 50 mg 11/25/19 09:00 11/29/19 09:39 Aldactone PO 50 mg DAILY [facility] Administration Vecuronium [place] 10 mg 11/27/19 08:50 11/29/19 13:58 Norcuron IVP 10 mg Q30MIN PRN Administration Agitation - Exam General - other findings: Patient in bed, intubated. Heart - other findings: S1-S2 present and normal. No murmurs gallops or rubs Respiratory - other findings: Bilateral coarse breath sounds. Gastrointestinal - other findings: Soft, no masses palpated Extremities: 1+ LE edema Hosp A/P - Plan 64-year-old female patient admitted in the ICU on ventilator support on account of acute hypoxic respiratory failure with COVID pneumonia. Also has Staphylococcus bacteremia and severe hypertension. She has generally remained unchanged however blood pressure has improved and blood glucose control is also improving. She will continue management in the ICU with pulmonology Acute hypoxic respiratory failure Secondary to COVID pneumonia Continue ventilator management Ongoing on ventilator. Pulmonology following. Right pneumothorax Resolved on x-ray Continue monitoring. COVID pneumonia Continues anticoagulation Also on steroids. Continue close monitoring. Staph aureus bacteremia Continue on oxacillin Port has been removed ID follow Acute kidney injury Improved creatinine down from 2.04-1.98 Nephrology following. Hypertensionimproved Was on nicardipine dripcurrently discontinued Also on spironolactone, minoxidil, isosorbide dinitrate and hydralazine Continue blood pressure monitoring. Hyperglycemiaimproved. Likely secondary to steroids Was on glargine now on NPH 40 every 12 Blood sugar is lower today, NPH adjusted to 30 every 12 Continue blood glucose monitoring Hypothyroidism Continue levothyroxine VTE prophylaxistherapeutic: Lovenox Dispositionpending improvement. Prognosis is generally poor.
--- NOTE | 2019-11-29 15:29 | PRG ---
DATE OF SERVICE: SUBJECTIVE: Ms. Mosqueda is intubated. She is in the supine position and she has been afebrile. OBJECTIVE: VITAL SIGNS: Heart rate 92, FiO2 of 60, and O2 sats are 95%. LUNGS: Symmetric air entry. ABDOMEN: Soft. LABORATORY DATA: White cell count 14,000, hemoglobin 11.5, platelets 350 with 95% neutrophils. Creatinine 1.98, which is a little bit better. Albumin 2.6. Chest x-ray with diffuse infiltrates, more prominent on the right side. Chest tube in place. Dr. Burkett has seen the patient. The high pressure and FiO2 have been decreased, and Dr. Prabhakar has also evaluated the patient and sodium bicarbonate has been started. ASSESSMENT AND DISCUSSION: Type-2 diabetes; Crohn disease, on periotic TNF inhibitor through port; chronic obstructive pulmonary disease; and COVID pneumonia and methicillin sensitive Staphylococcus aureus bacteremia from the port is the most likely scenario. Port has been removed. The patient on oxacillin to be continued. She is also on methylprednisolone for the COVID and supportive therapy, electrolyte replacement, and so on. Job ID: [id number] MTDD
[2019-11-29] MEDS: HumaLOG 300 UNITS/3 ML VIAL SC PRN ×2 (16:35→21:21)
[2019-11-29] MEDS: Enoxaparin Sodium 80 MG/0.8 ML SYRINGE SC SCH (20:32)
[2019-11-29] MEDS: OLANZapine 5 MG TAB PO SCH (20:34)
[2019-11-30] MEDS: Oxacillin 2 GM in Sodium Chloride 0.9% 100 ML IVPB SCH ×6 (00:44→21:54)
[2019-11-30] MEDS: Vecuronium 10 MG VIAL IVP PRN (00:48)
[2019-11-30] MEDS: Propofol 1,000 MG/100 ML VIAL IV PRN ×4 (00:48→20:00)
[2019-11-30] MEDS: Sodium Chloride 0.45% 1,000 ML IV SCH ×2 (02:38→20:00)
[2019-11-30] MEDS ORDERED: Levothyroxine Sodium 100 MCG TAB ONE (05:45)
[2019-11-30] MEDS ORDERED: Oxacillin 2 GM VIAL ONE (05:45)
[2019-11-30 08:11] LABS: ALT (SGPT) 10 U/L (8-55); AST (SGOT) 15 U/L (5-34); Albumin 2.5 g/dL (3.4-4.8); Alkaline Phosphatase 124 U/L (40-110); Anion Gap 18 mmol/L (10-20); BUN (Urea Nitrogen) 92 mg/dL (9.8-20.1); Bilirubin, Total 0.4 mg/dL (0.2-1.2); Calc. Creatinine Clearance 40 mL/min (70-130); Calcium 8.2 mg/dL (7.8-10.44); Carbon Dioxide 18 mmol/L (23-31); Chloride 110 mmol/L (98-107); Estimated GFR-MDRD 31; Globulin 3.9 g/dL (2.4-3.5); Glucose 177 mg/dL (80-115); Potassium 4.6 mmol/L (3.5-5.1); Protein, Total 6.4 g/dL (6.0-8.3); Sodium 141 mmol/L (136-145)
[2019-11-30] MEDS: Sodium Bicarbonate Tab 325 MG TAB PO SCH ×3 (09:00→21:52)
[2019-11-30] MEDS: Gabapentin 300 MG CAP PO SCH ×3 (09:00→21:52)
[2019-11-30] MEDS: Cholecalciferol (Vitamin D3) 400 UNITS TAB PER TUBE SCH (09:00)
[2019-11-30] MEDS: Morphine 2 MG/ML VIAL SLOW IVP PRN (09:00)
[2019-11-30] MEDS: Minoxidil 2.5 MG TAB PO SCH (09:00)
[2019-11-30] MEDS: Acetaminophen 650 MG/20.3 ML UDCUP PER TUBE PRN (09:00)
[2019-11-30] MEDS: FLUoxetine HCl 20 MG CAP PO SCH (09:00)
[2019-11-30] MEDS: Labetalol 100 MG TAB PO SCH ×2 (09:00→21:52)
[2019-11-30] MEDS: Ascorbic Acid 500 mg Chewable Tablet PO SCH (09:00)
[2019-11-30] MEDS: hydrALAZINE 25 MG TAB PO SCH ×3 (09:00→21:53)
[2019-11-30] MEDS: Famotidine 20 MG TAB PO SCH (09:00)
[2019-11-30] MEDS: Levothyroxine Sodium 100 MCG TAB PO SCH (09:00)
[2019-11-30] MEDS: Isosorbide Dinitrate 20 MG TAB PO SCH ×3 (09:00→21:59)
[2019-11-30] MEDS: methylPREDNISolone Sod Succ/PF 125 MG/2 ML VIAL IVP SCH ×2 (09:00→21:53)
[2019-11-30] MEDS: Spironolactone 25 MG TAB PO SCH (09:00)
--- NOTE | 2019-11-30 09:23 | PRG ---
DATE OF SERVICE: 11/30/2019 35 minutes of critical time. SUBJECTIVE: The patient remains intubated on mechanical ventilation. There have been no acute changes. OBJECTIVE: VITAL SIGNS: Temperature 98.6, pulse 100, blood pressure 159/93, O2 saturation 94%. HEENT: Unremarkable. NECK: No adenopathy or JVD. LUNGS: Coarse breath sounds. She has air leak in right chest tube. CARDIAC: S1, S2 regular. ABDOMEN: Soft. EXTREMITIES: No edema. LABORATORY DATA: White blood cell count 15.7, hematocrit 32.1, platelet count 344. Sodium 141, potassium 4.6, chloride 100, CO2 of 18, BUN 92, creatinine 1.9, glucose 177. ABG result looked about the same on pressure-controlled ventilation with FiO2 of 69%. ASSESSMENT: 1. Coronavirus disease 2019 pneumonia. 2. Right pneumothorax. 3. Acute renal dysfunction. PLAN: 1. She is still requiring too much oxygen to undergo tracheostomy, but she will eventually need that. 2. Continue supportive care with IV steroids, anticoagulation, and mechanical ventilation. 3. I have told the nurses to wean down the sedation some. Job ID: [id number]
[2019-11-30] MEDS: NPH, Human Insulin Isophane 300 UNIT/3 ML VIAL SC SCH ×2 (09:37→21:59)
--- NOTE | 2019-11-30 09:42 | RAD ---
CHEST 1 VIEW: COMPARISON: 11/29/2019. HISTORY: Evaluate pneumonia and pneumothorax. FINDINGS: Endotracheal and nasogastric tubes are noted. Stable left-sided vascular catheter. Small right apic al pneumothorax is redemonstrated. Stable right-sided chest tube. Stable cardiomegaly, atherosclero sis, and lung parenchymal opacities. IMPRESSION: No significant interval change. POS: [facility]
[2019-11-30 09:49] LABS: Actual Bicarbonate (HCO3a) 17.8 mEq/L (22-28); Carboxyhemoglobin (COHb) 0.3 gm% (0.0-3.0); O2 Tension (PaO2), arterial 73.9 mmHg (> 80.0); pH, Arterial 7.44 (7.35-7.45)
[2019-11-30 09:50] LABS: Calcium, Ionized (arterial) 1.16 mmol/L (1.12-1.30); Potassium - ABG Lab 4.39 mmol/L (3.70-5.30); Puncture Site RRA
[2019-11-30 10:58] LABS: Band 5 % (5-11); Hemoglobin 10.7 g/dL (12.0-16.0); Lymphocytes 2 % (21-51); MDiff Complete? YES; Mean Corpuscular HGB CONC 33.4 g/dL (32.0-36.0); Mean Corpuscular Hemoglobin 32.1 pg (27.0-31.0); Mean Corpuscular Volume 96.1 fL (78.0-98.0); Mean Platelet Volume 9.1 fL (7.4-10.4); Monocytes 2 % (0-10); Neutrophil 91 % (42-75); Platelet Count 344 thou/uL (130-400); Platelet Morphology Comment Appears Adequate; Polychromasia SLIGHT = 2-3 cells (100X) (0-2/hpf); RBC Distribution Width 14.5 % (11.5-14.5); Red Blood Cell (RBC) Count 3.34 mill/uL (4.20-5.40); White Blood Cell (WBC) Count 15.7 thou/uL (4.8-10.8)
[2019-11-30] MEDS: cloNIDine 0.3mg/24 Hour PATCH TD SCH (12:15)
--- NOTE | 2019-11-30 12:50 | PRG ---
DATE OF SERVICE: 11/30/2019 SERVICE: Nephrology. SUBJECTIVE: A 64-year-old female seen in followup for MOOK on CKD and hypertension. The patient is still intubated and mechanically ventilated. Tolerating tube feed well. OBJECTIVE: VITAL SIGNS: Temperature 98.9, pulse 93, respiratory rate 30, SpO2 of 93% on 69% FiO2, and blood pressure is 121/67. I and O in the last 24 hours showed total intake of 2068 with output of 2074. GENERAL: Sedated, obese female, in no obvious distress. HEENT: Normocephalic, atraumatic. ET tube is in place. CARDIOVASCULAR: Regular rhythm and rate with normal heart sounds 1 and 2. RESPIRATORY: Ventilator transmitted breath sounds noted. Tachypneic. GASTROINTESTINAL: Obese, soft, and nondistended with normal bowel sounds. UROGENITAL: Quevedo catheter is in place, draining urine. EXTREMITIES: Grossly normal looking, atraumatic with no obvious edema or erythema. CENTRAL NERVOUS SYSTEM: Sedated. DIAGNOSTIC DATA: CBC showed WBC count of 15.7, hemoglobin of 10.7, and platelet of 344. Chemistry showed sodium 141, potassium 4.6, chloride 110, CO2 of 18, BUN 92, creatinine 1.95, glucose 177, total bilirubin 0.4, total protein 6.4, and albumin 2.5. Arterial blood gas earlier today showed pH of 7.44, pCO2 of 27, pO2 of 73.9, ionized calcium of 1.15. Chest x-ray showed small right apical pneumothorax. Lung parenchymal opacities again were noted with no significant interval change. ASSESSMENT: 1. Acute kidney injury: Improved. Creatinine is down to 1.95. The patient is at baseline. 2. Chronic kidney disease, stage 3. 3. Metabolic acidosis: Initially due to sepsis, markedly improved currently due to hyperchloremic acidosis related to normal insulin therapy. 4. Septic shock: Resolved. 5. 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 Blood pressure control is better. The patient is on multiple antihypertensives. Had an episode of hypertension earlier today. 6. Primary hyperaldosteronism. 7. Acute respiratory failure: Due to COVID pneumonia with some contribution from spontaneous pneumothorax. 8. COVID pneumonia. 9. Staphylococcus aureus bacteremia, felt to be from the Port-A-Cath. 10. Crohn's disease, on treatment. 11. Diabetes mellitus with hyperglycemia. PLAN: 1. Continue current antihypertensives. We will, however, monitor closely with a view to deescalating therapy with removal of minoxidil. 2. We will also increase alkali therapy with sodium bicarbonate. 3. We will recommend discontinuation of normal saline at this point. If IV fluid is needed, half-normal saline with sodium bicarbonate will be a better option. 4. Continue to monitor intake and output as well as renal function. Other treatment as per product marketing executive and primary attending. Job ID: [id number]
--- NOTE | 2019-11-30 15:53 | PDOC.HOSPP ---
- Subjective Encounter Date: 11/30/19 Encounter Time: 09:00 Subjective: Patient was seen and examined in bed. She is on ventilator support No significant events overnight - Objective Vital Signs & Weight: Vital Signs (12 hours) Pulse Resp BP Pulse Ox 11/30/19 14:29 99 11/30/19 14:21 92 11/30/19 14:00 34 H 11/30/19 12:00 39 H 11/30/19 10:42 92 11/30/19 10:00 28 H 11/30/19 09:00 99 157/95 H 11/30/19 08:00 26 H 94 L 11/30/19 07:19 99 157/95 H Weight Admit Weight 197 lb Weight 193 lb 9.054 oz Most Recent Monitor Data Heart Rate from ECG 98 NIBP 122/69 NIBP BP-Mean 86 Respiration from ECG 14 SpO2 96 I&O: 11/29/19 11/30/19 12/01/19 06:59 06:59 06:59 Intake Total 3492 2069 190 Output Total 2408 1863 530 Balance 1087 -6 -340 Result Diagrams: 11/30/19 Unknown 11/30/19 03:30 Additional Labs: Accuchecks 11/30/19 11/30/19 11/29/19 04:47 01:09 20:13 POC Glucose 186 H 128 H 186 H Hospitalist ROS - Medication Medications: Active Medications Generic Name Dose Route Start Last Admin Trade Name Freq PRN Reason Stop Dose Admin Acetaminophen 650 mg 11/21/19 05:39 11/21/19 13:23 Tylenol [place] 650 mg Q6H PRN Administration Fever > 101 or Mild Pain Acetaminophen 650 mg 11/24/19 16:43 11/30/19 09:00 Tylenol Elixir PER TUBE 650 mg Q6H PRN Administration Fever > 100.3 Ascorbic Acid 1,000 mg 11/25/19 09:00 11/30/19 09:00 Vitamin C PO 1,000 mg DAILY JOSSY Administration Cholecalciferol 400 units 11/27/19 09:00 11/30/19 09:00 Vitamin D PER TUBE 400 units DAILY JOSSY Administration Clonidine 0.3 mg 11/23/19 13:00 11/30/19 12:15 [id number]-9 TD 0.3 mg Q7D JOSSY Administration Dextrose/Water 25 gm 11/21/19 04:06 11/21/19 04:21 Dextrose 50% SLOW IVP 25 gm PRN PRN Administration Hypoglycemia Enoxaparin Sodium 80 mg 11/25/19 21:00 11/29/19 20:32 Lovenox SC 80 mg 2100 JOSSY Administration Famotidine 20 mg 11/24/19 09:00 11/30/19 09:00 Pepcid PO 20 mg DAILY JOSSY Administration Fluoxetine HCl 60 mg 11/22/19 09:00 11/30/19 09:00 Prozac PO 60 mg DAILY JOSSY Administration Gabapentin 600 mg 11/21/19 15:00 11/30/19 14:20 Neurontin PO 600 mg TID JOSSY Administration Hydralazine HCl 100 mg 11/23/19 15:00 11/30/19 14:21 Apresoline PO 100 mg TID JOSSY Administration Fentanyl Citrate 2,000 mcg/ 100 mls @ 0 mls/hr 11/21/19 00:42 11/22/19 17:25 Sodium Chloride IV 12/21/19 00:42 100 mls INF JOSSY Administration Protocol Per Protocol Sodium Chloride 1,000 mls @ 75 mls/hr 11/23/19 13:45 11/30/19 02:38 1/2 Normal Saline IV 1,000 mls .[id number] JOSSY Administration Nicardipine HCl 50 mg/ Sodium 250 mls @ 0 mls/hr 11/24/19 09:45 11/26/19 18:34 Chloride IV 250 mls INF JOSSY Administration Protocol As Directed Oxacillin Sodium 2 gm/ Sodium 100 mls @ 200 mls/hr 11/27/19 09:00 11/30/19 12:53 Chloride IVPB Not Given Q4HR [facility] Insulin Human Lispro 0 units 11/24/19 10:33 11/29/19 21:21 Humalog SC 2 unit .MODERATE SLIDING SC PRN Administration Moderate Correctional Scale Insulin Human NPH 30 unit 11/28/19 09:00 11/30/19 09:37 Humulin N SC 30 unit Q12HR JOSSY Administration Isosorbide Dinitrate 20 mg 11/28/19 15:00 11/30/19 14:21 Isordil PO 20 mg TID JOSSY Administration Labetalol HCl 200 mg 11/28/19 09:00 11/30/19 09:00 Normodyne PO 200 mg BID JOSSY Administration Levothyroxine Sodium 100 mcg 11/22/19 06:00 11/30/19 09:00 Synthroid PO 100 mcg 0600 JOSSY Administration Lorazepam 2 mg 11/21/19 02:24 11/25/19 23:53 Ativan SLOW IVP 12/21/19 02:24 2 mg Q1H PRN Administration Breakthrough agitation Methylprednisolone Sodium Succinate 80 mg 11/24/19 21:00 11/30/19 09:00 Solu-Medrol IVP 80 mg Q12HR JOSSY Administration Minoxidil 5 mg 11/26/19 09:00 11/30/19 09:00 Minoxidil PO 5 mg DAILY JOSSY Administration Morphine Sulfate 2 mg 11/21/19 02:24 11/30/19 09:00 Morphine SLOW IVP 12/21/19 02:24 2 mg Q1H PRN Administration Breakthrough Pain/Agitation Olanzapine 10 mg 11/23/19 21:00 11/29/19 20:34 Zyprexa PO 10 mg HS JOSSY Administration Propofol 1,000 mg 11/21/19 02:24 11/30/19 12:00 Diprivan IV 12/21/19 02:24 1,000 mg INF PRN Administration TO ACHIEVE GOAL RASS Protocol Sodium Bicarbonate 650 mg 11/30/19 15:00 11/30/19 14:20 Sodium Bicarbonate Tab 325 Mg Tab PO 650 mg TID JOSSY Administration Sodium Chloride 10 ml 11/25/19 09:00 11/30/19 09:00 Flush - Normal Saline IVF 10 ml Q12HR JOSSY Administration Spironolactone 50 mg 11/25/19 09:00 11/30/19 09:00 Aldactone PO 50 mg DAILY JOSSY Administration - Exam General - other findings: Patient in bed. On ventilator support. Heart - other findings: S1-S2 present and normal. No murmurs gallops or rubs. Respiratory - other findings: Coarse breath sounds bilaterally. Gastrointestinal - other findings: Soft, no organomegaly. Neurological - other findings: Patient is sedated. Not tracking. Hosp A/P - Plan 64-year-old female patient admitted in the ICU on ventilator support on account of acute hypoxic respiratory failure with COVID pneumonia. Also has Staphylococcus bacteremia and severe hypertension. Continue management in CCU. Acute hypoxic respiratory failure Secondary to COVID pneumonia Continue ventilator management Ongoing on ventilator. Pulmonology following. Right pneumothorax Chest tubes in place. COVID pneumonia Continues anticoagulation Also on steroids. Continue close monitoring. Staph aureus bacteremia Continue on oxacillin Port has been removed ID follow Acute kidney injury Improved creatinine down from 2.04-1.95 Nephrology following. Hypertensionimproved Was on nicardipine dripcurrently discontinued Also on spironolactone, minoxidil, isosorbide dinitrate and hydralazine Continue blood pressure monitoring. Hyperglycemiaimproved. Likely secondary to steroids Was on glargine now on NPH 40 every 12 Blood sugar is lower today, NPH adjusted to 30 every 12 Continue blood glucose monitoring Hypothyroidism Continue levothyroxine VTE prophylaxistherapeutic: Lovenox Dispositionpending improvement. Prognosis is generally poor.
[2019-11-30] MEDS: HumaLOG 300 UNITS/3 ML VIAL SC PRN (16:20)
--- NOTE | 2019-11-30 17:44 | PRG ---
DATE OF SERVICE: 11/30/2019 SUBJECTIVE: The patient is still requiring a lot of ventilatory support with high pressures and high levels of FiO2 in the inspired air. OBJECTIVE: GENERAL: She is a little bit more alert. She opens her eyes and does not necessarily follow commands and been afebrile. VITAL SIGNS: BP 170/92, heart rate 108, respiratory rate 37, O2 saturation 91%. She has 98% FiO2. HEENT: Pupils are reactive. LUNGS: Symmetric air entry, maybe with a little bit of decrease in the right side, the site of the pneumothorax. Chest tube in place. Quevedo catheter. I's and O's are positive 1000 yesterday and today they are -500 thus far. LABORATORY DATA: White cell count 15.7, hemoglobin 10, platelets 344, 91% neutrophils and creatinine is 1.95 which is improved from previous. Repeat blood culture, no growth 5 days from November 24. ASSESSMENT AND DISCUSSION: Type 2 diabetes, Crohn disease, on periodic TNF inhibitor through port, chronic obstructive pulmonary disease, COVID pneumonia, MSSA bacteremia from port is the most likely scenario. Port has been removed. The patient is on oxacillin. Still requiring high levels of ventilator support and oxygen supplementation. The chest x-ray is still with diffuse infiltrates. Job ID: [id number] [facility]
[2019-11-30] MEDS: OLANZapine 5 MG TAB PO SCH (21:52)
[2019-11-30] MEDS: Enoxaparin Sodium 80 MG/0.8 ML SYRINGE SC SCH (21:53)
[2019-12-01] MEDS: Oxacillin 2 GM in Sodium Chloride 0.9% 100 ML IVPB SCH ×6 (01:29→20:25)
[2019-12-01 04:12] LABS: ALT (SGPT) 12 U/L (8-55); AST (SGOT) 17 U/L (5-34); Albumin 2.5 g/dL (3.4-4.8); Alkaline Phosphatase 119 U/L (40-110); Anion Gap 18 mmol/L (10-20); BUN (Urea Nitrogen) 87 mg/dL (9.8-20.1); Bilirubin, Total 0.3 mg/dL (0.2-1.2); Calc. Creatinine Clearance 42 mL/min (70-130); Calcium 8.4 mg/dL (7.8-10.44); Carbon Dioxide 18 mmol/L (23-31); Chloride 113 mmol/L (98-107); Estimated GFR-MDRD 34; Globulin 3.7 g/dL (2.4-3.5); Glucose 115 mg/dL (80-115); Potassium 4.7 mmol/L (3.5-5.1); Protein, Total 6.2 g/dL (6.0-8.3); Sodium 144 mmol/L (136-145)
[2019-12-01] MEDS: Propofol 1,000 MG/100 ML VIAL IV PRN ×2 (04:44→23:58)
[2019-12-01 04:45] LABS: Band 2 % (5-11); Eosinophils 1 % (0-10); Hemoglobin 10.5 g/dL (12.0-16.0); Lymphocytes 2 % (21-51); MDiff Complete? YES; Mean Corpuscular HGB CONC 33.4 g/dL (32.0-36.0); Mean Platelet Volume 9.2 fL (7.4-10.4); Monocytes 1 % (0-10); Neutrophil 94 % (42-75); Platelet Count 347 thou/uL (130-400); RBC Distribution Width 14.5 % (11.5-14.5); Red Blood Cell (RBC) Count 3.27 mill/uL (4.20-5.40); Target Cells SLIGHT = 2-5 cells (100X) (0-1/hpf); White Blood Cell (WBC) Count 16.5 thou/uL (4.8-10.8)
[2019-12-01] MEDS: Levothyroxine Sodium 100 MCG TAB PO SCH (05:46)
[2019-12-01 07:58] LABS: Actual Bicarbonate (HCO3a) 17.4 mEq/L (22-28); Base Excess (BEa) -6.4 mEq/L (-2.0 to +3.0); Calcium, Ionized (arterial) 1.19 mmol/L (1.12-1.30); Carboxyhemoglobin (COHb) 0.3 gm% (0.0-3.0); Hemoglobin (Hb) 10.3 g/dL (12.0-16.0); O2 Tension (PaO2), arterial 72.4 mmHg (> 80.0); Potassium - ABG Lab 4.65 mmol/L (3.70-5.30)
[2019-12-01 07:59] LABS: Puncture Site RRA
[2019-12-01] MEDS ORDERED: Sodium Bicarbonate 50 MEQ in Sodium Chloride 0.45% 1,000 ML IV SCH (08:00)
--- NOTE | 2019-12-01 08:01 | RAD ---
PORTABLE CHEST: DATE: 12/01/2019. PROVIDED CLINICAL HISTORY: Pneumonia. FINDINGS: Comparison 11/30/2019. Cardiac and mediastinal silhouette is unchanged in appearance. Support appara tus is stable in position. Persistent small right pneumothorax. Appearance of the lung parenchyma i s unchanged. Left basilar pleural and/or parenchymal opacity persists. IMPRESSION: Stable radiographic appearance of the chest. POS: OFF
[2019-12-01] MEDS: methylPREDNISolone Sod Succ/PF 125 MG/2 ML VIAL IVP SCH ×2 (08:41→20:24)
[2019-12-01] MEDS: Cholecalciferol (Vitamin D3) 400 UNITS TAB PER TUBE SCH (08:41)
[2019-12-01] MEDS: Famotidine 20 MG TAB PO SCH (08:41)
[2019-12-01] MEDS: Ascorbic Acid 500 mg Chewable Tablet PO SCH (08:50)
[2019-12-01] MEDS: FLUoxetine HCl 20 MG CAP PO SCH (08:50)
[2019-12-01] MEDS: Sodium Bicarbonate Tab 325 MG TAB PO SCH ×3 (08:51→20:24)
[2019-12-01] MEDS: Isosorbide Dinitrate 20 MG TAB PO SCH ×3 (08:51→20:24)
[2019-12-01] MEDS: Spironolactone 25 MG TAB PO SCH (08:52)
[2019-12-01] MEDS: Labetalol 100 MG TAB PO SCH ×2 (08:52→20:24)
[2019-12-01] MEDS: hydrALAZINE 25 MG TAB PO SCH ×3 (08:52→20:24)
[2019-12-01] MEDS: Gabapentin 300 MG CAP PO SCH ×3 (08:52→20:23)
[2019-12-01] MEDS: NPH, Human Insulin Isophane 300 UNIT/3 ML VIAL SC SCH ×2 (08:56→20:26)
[2019-12-01] MEDS: Minoxidil 2.5 MG TAB PO SCH (09:00)
--- NOTE | 2019-12-01 09:21 | PRG ---
DATE OF SERVICE: 12/01/2019 A 35 minutes of critical care time. SUBJECTIVE: The patient continues to do poorly on mechanical ventilation. OBJECTIVE: VITAL SIGNS: Temperature 98.1, pulse 98, and blood pressure 154/91. A 24-hour intake 2995 and output 2320. HEENT: Unremarkable. NECK: No JVD. LUNGS: Coarse breath sounds. CARDIOVASCULAR: S1 and S2. Regular. ABDOMEN: Soft. EXTREMITIES: No edema. LABORATORY DATA: White blood count 16.5, hematocrit 31.4, and platelet count 347. A pH of 7.40, pCO2 of 29, pO2 of 72 on bilevel, rate 26, high pressure 32, low pressure 14, and FiO2 of 69%. Sodium 144, potassium 4.7, chloride 113, CO2 of 18, BUN 87, creatinine 1.8, and glucose 115. Chest x-ray shows chest tube in place on the right. She has no air leak on the right side on the chest when the Pleur-Evac is visualized. ASSESSMENT: 1. COVID-19 pneumonia. 2. Staphylococcal sepsis. 3. Acute respiratory failure requiring mechanical ventilation. PLAN: I have increased the pressure support on mechanical ventilation. We will continue supportive care with steroids, antibiotics, and anticoagulation. Job ID: [id number]
[2019-12-01] MEDS: HumaLOG 300 UNITS/3 ML VIAL SC PRN (11:10)
[2019-12-01] MEDS ORDERED: Furosemide 40 MG/4 ML VIAL SLOW IVP SCH ×2 (11:30→20:00)
--- NOTE | 2019-12-01 12:05 | PRG ---
DATE OF SERVICE: 12/01/2019 SERVICE: Nephrology. SUBJECTIVE: A 64-year-old female seen in followup for [id number] renal failure as well as hypertension. The patient is intubated and mechanically ventilated due to acute respiratory failure. Still intubated and mechanically ventilated. Remained afebrile. OBJECTIVE: VITAL SIGNS: Temperature 97.5, pulse 103, respiratory rate 28, SpO2 of 91, on ventilator, blood pressure is 169/94. I and O in the last 24 hours showed total intake of 2995 with output of 2320. GENERAL: Obese female, in no obvious distress. The patient is sedated. HEENT: Normocephalic, atraumatic. Oral mucosa is moist. ET tube is in place. CARDIOVASCULAR: Regular rhythm and rate, tachycardic. RESPIRATORY: Ventilator transmitted breath sounds noted. GI: Obese, soft with normal bowel sounds. UROGENITAL: Quevedo catheter is in place draining some urine. EXTREMITIES: Edema of the extremities especially upper limbs noted. SENIOR DIRECTOR CREATIVE SERVICES: The patient is somnolent. Has been on sedatives, though currently off. DIAGNOSTIC DATA: CBC today showed WBC count of 16.5, hemoglobin of 10.5, platelet of 347. Chemistry today showed sodium 144, potassium 4.7, chloride 113, CO2 of 18, BUN 87, creatinine 1.83, glucose 115, calcium 8.4, total bilirubin 0.3, AST 17, ALT 12, alkaline phosphatase 119, total protein 6.2, albumin 2.5. Arterial blood gas today showed pH of 7.4, pCO2 of 29.0, pO2 of 72.4. Ionized calcium is 1.19. Chest x-ray today showed persistent small right pneumothorax. Left basilar pleural or parenchymal opacification persists. No significant change from previous x-ray. ASSESSMENT: 1. Acute kidney injury due to hemodynamic factors, markedly improved. Creatinine is better than recent baseline. 2. Chronic kidney disease stage 3. 3. Fluid overload. Creatinine is better than recent baseline and the patient has overt edema of the upper extremities and bilateral thigh. 4. Metabolic acidosis. Chloride is 113 with CO2 of 18 consistent with hyperchloremic acidosis. 5. Hypertension. Control is better. 6. Primary hyperaldosteronism, on spironolactone. 7. Septic shock, resolved. 8. Staphylococcus bacteremia. 9. COVID pneumonia. 10. Multifocal pneumonia. 11. Right-sided pneumothorax. PLAN: 1. We will substitute normal saline with sodium bicarbonate infusion due to worsening hyperchloremic acidosis. We will also reduce rate to 50. 2. We will start Lasix for volume management. 3. We will continue oral sodium bicarbonate as well. 4. It is expected that better volume management with Lasix, blood pressure control will improve such that we will begin to peel off some antihypertensives. We will hold minoxidil for now. We will optimize other antihypertensives to get adequate BP control. 5. We will monitor intake and output. 6. Other treatment as per home paraprofessional or primary attending. Job ID: [id number]
--- NOTE | 2019-12-01 12:23 | RAD ---
Exam: Chest one view HISTORY:Chest tube placement. Comparison: 12/01/2019 5:06 AM FINDINGS: Lines and tubes: There is an endotracheal tube terminates the level of clavicles. Nasogastric tube ex tends beyond the diaphragm. Distal tip is not seen. Stable left-sided subclavian vascular catheter. Stable 2 separate right-sided chest tubes. Cardiac silhouette:Cardiomegaly Aorta: Unremarkable Pulmonary vessels: Normal Costophrenic angles: Clear LUNGS: Scattered interstitial alveolar opacities, unchanged. Pneumothorax: Stable small right-sided pneumothorax. Small focus of subcutaneous emphysema the right chest wall. Osseous abnormalities: None IMPRESSION: 1. Stable small right-sided pneumothorax. 2. Persistent lung parenchymal opacities. Correlate for pneumonia.
--- NOTE | 2019-12-01 15:56 | PDOC.HOSPP ---
- Subjective Encounter Date: 12/01/19 Encounter Time: 15:55 Subjective: Patient was not physically examined by me. Pulmonology has already evaluated patient assessment and plan. Chart was reviewed no overnight events assessed. - Objective Vital Signs & Weight: Vital Signs (12 hours) Pulse Resp BP 12/01/19 14:16 94 120/77 12/01/19 14:00 41 H 12/01/19 12:00 26 H 12/01/19 10:44 92 165/94 H 12/01/19 10:00 35 H 12/01/19 08:52 99 159/91 H 12/01/19 08:00 34 H 12/01/19 06:00 26 H 12/01/19 04:00 27 H Weight Admit Weight 197 lb Weight 216 lb 4.375 oz Most Recent Monitor Data Heart Rate from ECG 93 NIBP 123/85 NIBP BP-Mean 97 Respiration from ECG 24 SpO2 94 I&O: 11/30/19 12/01/19 12/02/19 06:59 06:59 06:59 Intake Total 5258 2995 260 Output Total 1012 2320 860 Balance -6 675 -600 Result Diagrams: 12/01/19 03:07 12/01/19 03:07 Additional Labs: Accuchecks 11/30/19 11/30/19 23:10 16:20 POC Glucose 115 H 228 H Hospitalist ROS - Medication Medications: Active Medications Generic Name Dose Route Start Last Admin Trade Name Freq PRN Reason Stop Dose Admin Acetaminophen 650 mg 11/21/19 05:39 11/21/19 13:23 Tylenol DE 650 mg Q6H PRN Administration Fever > 101 or Mild Pain Acetaminophen 650 mg 11/24/19 16:43 11/30/19 09:00 Tylenol Elixir PER TUBE 650 mg Q6H PRN Administration Fever > 100.3 Ascorbic Acid 1,000 mg 11/25/19 09:00 12/01/19 08:50 Vitamin C PO 1,000 mg DAILY JOSSY Administration Cholecalciferol 400 units 11/27/19 09:00 12/01/19 08:41 Vitamin D PER TUBE 400 units DAILY JOSSY Administration Clonidine 0.3 mg 11/23/19 13:00 11/30/19 12:15 Akpivhhp-Svn-9 TD 0.3 mg Q7D JOSSY Administration Dextrose/Water 25 gm 11/21/19 04:06 11/21/19 04:21 Dextrose 50% SLOW IVP 25 gm PRN PRN Administration Hypoglycemia Enoxaparin Sodium 80 mg 11/25/19 21:00 11/30/19 21:53 Lovenox SC 80 mg 2100 JOSSY Administration Famotidine 20 mg 11/24/19 09:00 12/01/19 08:41 Pepcid PO 20 mg DAILY JOSSY Administration Fluoxetine HCl 60 mg 11/22/19 09:00 12/01/19 08:50 Prozac PO 60 mg DAILY JOSSY Administration Gabapentin 600 mg 11/21/19 15:00 12/01/19 08:52 Neurontin PO 600 mg TID JOSSY Administration Hydralazine HCl 100 mg 11/23/19 15:00 12/01/19 08:52 Apresoline PO 100 mg TID JOSSY Administration Nicardipine HCl 50 mg/ Sodium 250 mls @ 0 mls/hr 11/24/19 09:45 11/26/19 18:34 Chloride IV 250 mls INF JOSSY Administration Protocol As Directed Oxacillin Sodium 2 gm/ Sodium 100 mls @ 200 mls/hr 11/27/19 09:00 12/01/19 13:11 Chloride IVPB 100 mls Q4HR JOSSY Administration Dexmedetomidine HCl 400 mcg/ 100 mls @ 0 mls/hr 12/01/19 09:30 12/01/19 11:00 Sodium Chloride IVPB 100 mls INF JOSSY Administration Protocol Per Protocol Insulin Human Lispro 0 units 11/24/19 10:33 12/01/19 11:10 Humalog SC 2 unit .MODERATE SLIDING SC PRN Administration Moderate Correctional Scale Insulin Human NPH 30 unit 11/28/19 09:00 12/01/19 08:56 Humulin N SC 30 unit Q12HR JOSSY Administration Isosorbide Dinitrate 20 mg 11/28/19 15:00 12/01/19 08:51 Isordil PO 20 mg TID JOSSY Administration Labetalol HCl 200 mg 11/28/19 09:00 12/01/19 08:52 Normodyne PO 200 mg BID JOSSY Administration Levothyroxine Sodium 100 mcg 11/22/19 06:00 12/01/19 05:46 Synthroid PO 100 mcg 0600 JOSSY Administration Methylprednisolone Sodium Succinate 80 mg 11/24/19 21:00 09/17/20 08:41 Solu-Medrol IVP 80 mg Q12HR JOSSY Administration Olanzapine 10 mg 11/23/19 21:00 11/30/19 21:52 Zyprexa PO 10 mg HS JOSSY Administration Propofol 1,000 mg 11/21/19 02:24 12/01/19 04:44 Diprivan IV 12/21/19 02:24 1,000 mg INF PRN Administration TO ACHIEVE GOAL RASS Protocol Sodium Bicarbonate 650 mg 11/30/19 15:00 12/01/19 08:51 Sodium Bicarbonate Tab 325 Mg Tab PO 650 mg TID JOSSY Administration Sodium Chloride 10 ml 11/25/19 09:00 12/01/19 08:56 Flush - Normal Saline IVF 10 ml Q12HR JOSSY Administration Spironolactone 50 mg 11/25/19 09:00 12/01/19 08:52 Aldactone PO 50 mg DAILY JOSSY Administration Hosp A/P - Plan 64-year-old female patient admitted in the ICU on ventilator support on account of acute hypoxic respiratory failure with COVID pneumonia. Also has Staphylococcus bacteremia and severe hypertension. Continue management in CCU. No direct physical contact at this time. Acute hypoxic respiratory failure Secondary to COVID pneumonia Continue ventilator management Ongoing on ventilator. Pulmonology following. Right pneumothorax Chest tubes in place. COVID pneumonia Continues anticoagulation Also on steroids. Continue close monitoring. Staph aureus bacteremia Continue on oxacillin Port has been removed ID follow Acute kidney injury Improved creatinine down from 2.04-1.95 Nephrology following. Hypertensionimproved Was on nicardipine dripcurrently discontinued Also on spironolactone, minoxidil, isosorbide dinitrate and hydralazine Continue blood pressure monitoring. Hyperglycemiaimproved. Likely secondary to steroids Was on glargine now on NPH 40 every 12 Blood sugar is lower today, NPH adjusted to 30 every 12 Continue blood glucose monitoring Hypothyroidism Continue levothyroxine VTE prophylaxistherapeutic: Lovenox Dispositionpending improvement. Prognosis is generally poor.
--- NOTE | 2019-12-01 17:01 | PDOC.PALCO ---
Palliative Care Consult - Consult Details Requesting Physician: Dr Arellano Reason for Consult: goals of care, family support - Pertinent HPI 64 year old female who presented to the emergency room with shortness of breath. She and her were Covid positive. After presentation to the emergency room she was intubated and mechanically ventilated. She was admitted to the CCU for medical management and higher level of care. - Pertinent PMH Crohn disease, sleep apnea, diabetes, hypertension, COPD, pancreatitis, asthma. - Social History Smoking Status: Current every day smoker Smoking: less than 1 pack/day Alcohol Use: none Drug Use History: none Living Situation: - Medications MAR Reviewed: Yes - Allergies Allergies/Adverse Reactions: Allergies Allergy/AdvReac Type Severity Reaction Status Date / Time No Known Drug Allergies Allergy Verified 07/11/19 12:34 - Subjective Mechanically ventilated, sedation - ROS Non Response: due to endotracheal tube, due to mental status - Objective Vital Signs: Vital Signs - Most Recent Temp Pulse Resp BP Pulse Ox 97.3 F L 94 41 H 124/81 94 L 11/29/19 15:00 12/01/19 16:01 12/01/19 14:00 12/01/19 16:01 11/30/19 20:00 Palliative Performance Scale: 30 - Physical Exam Constitutional: encephalitic, ill appearing HEENT: moist MMs, sclera anicteric Deviation from normal: Adventicious to left upper diminished to right/2 chest tubes R chest wall Cardiovascular: RRR Deviation from normal: Distant heart sounds Gastrointestinal: soft, no distention Genitourinary: okeefe catheter Musculoskeletal: no clubbing, diffuse muscle atrophy Deviation from normal: sedated Skin: cap refill <2 seconds, no lesions, no rash Deviation from normal: sedated, encephalopathic - Problem List (1) Palliative care encounter Code(s): Z51.5 - ENCOUNTER FOR PALLIATIVE CARE Current Visit: Yes Status: Acute (2) Acute respiratory failure with hypoxia Code(s): J96.01 - ACUTE RESPIRATORY FAILURE WITH HYPOXIA Current Visit: Yes Status: Acute (3) Pneumonia due to COVID-19 virus Code(s): U07.1 - COVID-19; J12.89 - OTHER VIRAL PNEUMONIA Current Visit: Yes Status: Acute (4) Physical deconditioning Code(s): R53.81 - OTHER MALAISE Current Visit: No Status: Acute (5) Chronic stage c diastolic heart failure Code(s): I50.32 - CHRONIC DIASTOLIC (CONGESTIVE) HEART FAILURE Current Visit: No Status: Chronic (6) Obesity Code(s): E66.9 - OBESITY, UNSPECIFIED Current Visit: No Status: Chronic - Plan/Recommendations Plan: Family support. Family encouraged to bring in photos and we will place for patient to see. recovered from Covid, family with guilt as grandchildren unknowingly spread infection within family. Communicated and relayed we can play audio messages to patient via the blue engageSimply speaker. Encouraged family to send audio messages. Palliative care will continue to support family and bridge gap secondary to isolation related to Covid. Continue to offer emotional support and therapeutic listening. Will ensure Spiritual care consult placed. [50] minutes spent on this encounter with >50% of the time in counseling and coordination of care. Thank you for this very appropriate consult.
[2019-12-01] MEDS: Enoxaparin Sodium 80 MG/0.8 ML SYRINGE SC SCH (20:23)
[2019-12-01] MEDS: OLANZapine 5 MG TAB PO SCH (20:25)
[2019-12-02] MEDS: Oxacillin 2 GM in Sodium Chloride 0.9% 100 ML IVPB SCH ×6 (00:17→20:23)
[2019-12-02] MEDS: HumaLOG 300 UNITS/3 ML VIAL SC PRN ×3 (04:48→16:40)
[2019-12-02 05:21] LABS: Band 5 % (5-11); Hemoglobin 9.8 g/dL (12.0-16.0); Lymphocytes 7 % (21-51); MDiff Complete? YES; Mean Corpuscular HGB CONC 32.5 g/dL (32.0-36.0); Mean Corpuscular Hemoglobin 31.3 pg (27.0-31.0); Mean Corpuscular Volume 96.5 fL (78.0-98.0); Mean Platelet Volume 9.8 fL (7.4-10.4); Monocytes 3 % (0-10); Neutrophil 85 % (42-75); Platelet Count 316 thou/uL (130-400); Platelet Morphology Comment Appears Adequate; RBC Distribution Width 14.4 % (11.5-14.5); Red Blood Cell (RBC) Count 3.14 mill/uL (4.20-5.40); White Blood Cell (WBC) Count 12.5 thou/uL (4.8-10.8)
[2019-12-02 05:35] LABS: ALT (SGPT) 11 U/L (8-55); AST (SGOT) 13 U/L (5-34); Albumin 2.5 g/dL (3.4-4.8); Alkaline Phosphatase 111 U/L (40-110); Anion Gap 17 mmol/L (10-20); BUN (Urea Nitrogen) 95 mg/dL (9.8-20.1); Bilirubin, Total 0.3 mg/dL (0.2-1.2); Calc. Creatinine Clearance 47 mL/min (70-130); Calcium 8.6 mg/dL (7.8-10.44); Carbon Dioxide 19 mmol/L (23-31); Chloride 113 mmol/L (98-107); Estimated GFR-MDRD 33; Globulin 3.5 g/dL (2.4-3.5); Glucose 189 mg/dL (80-115); Potassium 4.3 mmol/L (3.5-5.1); Sodium 145 mmol/L (136-145)
[2019-12-02] MEDS: Levothyroxine Sodium 100 MCG TAB PO SCH (05:40)
--- NOTE | 2019-12-02 09:14 | RAD ---
PORTABLE CHEST: Date: 12/02/2019 INDICATION: Pneumonia follow-up. COMPARISON: 12/01/2019. FINDINGS: There is confluent patchy infiltrate in the right mid and lower lung. Left lung is poorly evaluated d ue to motion artifact and obscuring the hemidiaphragm. ET tube and NG tube remain in place. Central l ine unchanged. IMPRESSION: Bibasilar infiltrates, probably more pronounced in the right mid and lower lung. Probably not signifi cantly changed from yesterday. POS: OFF
[2019-12-02] MEDS: Sodium Bicarbonate Tab 325 MG TAB PO SCH ×3 (09:37→20:20)
--- NOTE | 2019-12-02 09:38 | PRG ---
DATE OF SERVICE: 12/02/2019 35 minutes critical care time. SUBJECTIVE: The patient remains intubated on mechanical ventilation. There have been no acute changes overnight. OBJECTIVE: VITAL SIGNS: Temperature 97.9, pulse 93, blood pressure 130/77. Currently on Precedex drip. Intake 6608 mL, output 3395 mL. HEENT: Unremarkable. NECK: No adenopathy or JVD. LUNGS: Coarse breath sounds. Has air leak in right chest tube. CARDIAC: S1 and S2. Regular. ABDOMEN: Soft. EXTREMITIES: No edema. LABORATORY DATA: White blood cell count 12.5, hematocrit 30, and platelet count 316. pH 7.4, pCO2 of 29, pO2 of 72. Sodium 145, potassium 4.3, chloride 113, CO2 of 19, BUN 95, creatinine 1.8, glucose 189. ASSESSMENT: 1. COVID-19 pneumonia. 2. Acute respiratory failure, requiring mechanical ventilation. 3. Right pneumothorax from COVID pneumonia. 4. Metabolic encephalopathy without evidence of improvement. PLAN: 1. She is going to need a tracheostomy and PEG tube placed that the family wants to continue with aggressive care. I will try to keep weaning her oxygen down as right now her requirements are probably too much for her to tolerate the tracheostomy procedure. 2. The patient's prognosis is quite poor for recovery. Job ID: [id number]
[2019-12-02] MEDS: Gabapentin 300 MG CAP PO SCH ×3 (09:39→13:43)
[2019-12-02] MEDS: Spironolactone 100 MG TAB PO SCH (09:40)
[2019-12-02] MEDS: hydrALAZINE 25 MG TAB PO SCH ×3 (09:41→20:26)
[2019-12-02] MEDS: Famotidine 20 MG TAB PO SCH (09:41)
[2019-12-02] MEDS: Labetalol 100 MG TAB PO SCH ×2 (09:42→20:22)
[2019-12-02] MEDS: FLUoxetine HCl 20 MG CAP PO SCH (09:43)
[2019-12-02] MEDS: Ascorbic Acid 500 mg Chewable Tablet PO SCH (09:43)
[2019-12-02] MEDS: Isosorbide Dinitrate 20 MG TAB PO SCH ×3 (09:43→20:22)
[2019-12-02] MEDS: Cholecalciferol (Vitamin D3) 400 UNITS TAB PER TUBE SCH (09:44)
[2019-12-02] MEDS: Furosemide 40 MG/4 ML VIAL SLOW IVP SCH (09:46)
[2019-12-02] MEDS: methylPREDNISolone Sod Succ/PF 125 MG/2 ML VIAL IVP SCH ×2 (09:46→20:22)
[2019-12-02] MEDS: NPH, Human Insulin Isophane 300 UNIT/3 ML VIAL SC SCH ×2 (09:46→20:19)
[2019-12-02] MEDS: Propofol 1,000 MG/100 ML VIAL IV PRN ×3 (10:02→20:23)
[2019-12-02] MEDS: Acetaminophen 650 MG/20.3 ML UDCUP PER TUBE PRN (12:28)
--- NOTE | 2019-12-02 13:18 | PDOC.NEPPN ---
- Subjective Encounter Date: 12/02/19 Subjective: 64 y/o female with multiple co morbidities including CKD, DM, crohns and others admitted due to acute encephalopathy and respiratory failure. Was intubated and mechanically intubated. Found to have septic shock from staph bacteremia which has improved. Remained on the ventilator. - Objective Vital Signs & Weight: Vital Signs (12 hours) Pulse Resp BP Pulse Ox 12/02/19 12:00 32 H 12/02/19 10:36 126 H 180/96 H 12/02/19 10:00 38 H 12/02/19 09:42 98 138/80 12/02/19 09:41 98 138/80 12/02/19 08:00 39 H 92 L 12/02/19 07:58 98 138/80 12/02/19 06:00 26 H 12/02/19 04:00 26 H 12/02/19 02:00 26 H Weight Admit Weight 197 lb Weight 221 lb 1.978 oz Most Recent Monitor Data Heart Rate from ECG 119 NIBP 127/73 NIBP BP-Mean 91 Respiration from ECG 33 SpO2 95 I&O: 12/01/19 12/02/19 12/03/19 06:59 06:59 06:59 Intake Total 2995 6608.4 200 Output Total 2320 3395 1000 Balance 675 3213.4 -800 Result Diagrams: 12/02/19 04:30 12/02/19 04:30 Additional Labs: Accuchecks 12/02/19 12/02/19 12/01/19 10:14 04:36 20:44 POC Glucose 171 H 189 H 145 H Nephrology ROS - Medication Medications: Active Medications Generic Name Dose Route Start Last Admin Trade Name Freq PRN Reason Stop Dose Admin Acetaminophen 650 mg 11/21/19 05:39 11/21/19 13:23 Tylenol DE 650 mg Q6H PRN Administration Fever > 101 or Mild Pain Acetaminophen 650 mg 11/24/19 16:43 12/02/19 12:28 Tylenol Elixir PER TUBE 650 mg Q6H PRN Administration Fever > 100.3 Ascorbic Acid 1,000 mg 11/25/19 09:00 12/02/19 09:43 Vitamin C PO 1,000 mg DAILY JOSSY Administration Cholecalciferol 400 units 11/27/19 09:00 12/02/19 09:44 Vitamin D PER TUBE 400 units DAILY JOSSY Administration Clonidine 0.3 mg 11/23/19 13:00 11/30/19 12:15 Srzwnrxr-Ebz-7 TD 0.3 mg Q7D JOSSY Administration Dextrose/Water 25 gm 11/21/19 04:06 11/21/19 04:21 Dextrose 50% SLOW IVP 25 gm PRN PRN Administration Hypoglycemia Enoxaparin Sodium 80 mg 11/25/19 21:00 12/01/19 20:23 Lovenox SC 80 mg 2100 JOSSY Administration Famotidine 20 mg 11/24/19 09:00 12/02/19 09:41 Pepcid PO 20 mg DAILY JOSSY Administration Fluoxetine HCl 60 mg 11/22/19 09:00 12/02/19 09:43 Prozac PO 60 mg DAILY JOSSY Administration Furosemide 40 mg 12/02/19 09:00 12/02/19 09:46 Furosemide 40 Mg/4 Ml Vial SLOW IVP 40 mg DAILY JOSSY Administration Gabapentin 600 mg 11/21/19 15:00 12/02/19 09:39 Neurontin PO 600 mg TID JOSSY Administration Hydralazine HCl 100 mg 11/23/19 15:00 12/02/19 09:41 Apresoline PO 100 mg TID JOSSY Administration Nicardipine HCl 50 mg/ Sodium 250 mls @ 0 mls/hr 11/24/19 09:45 11/26/19 18:34 Chloride IV 250 mls INF JOSSY Administration Protocol As Directed Oxacillin Sodium 2 gm/ Sodium 100 mls @ 200 mls/hr 11/27/19 09:00 12/02/19 12:28 Chloride IVPB 100 mls Q4HR JOSSY Administration Dexmedetomidine HCl 400 mcg/ 100 mls @ 0 mls/hr 12/01/19 19:00 12/02/19 10:38 Sodium Chloride IVPB 100 mls INF JOSSY Administration Protocol Titrate Insulin Human Lispro 0 units 11/24/19 10:33 12/02/19 10:38 Humalog SC 2 unit .MODERATE SLIDING SC PRN Administration Moderate Correctional Scale Insulin Human NPH 30 unit 11/28/19 09:00 12/02/19 09:46 Humulin N SC 30 unit Q12HR JOSSY Administration Isosorbide Dinitrate 20 mg 11/28/19 15:00 12/02/19 09:43 Isordil PO 20 mg TID JOSSY Administration Labetalol HCl 400 mg 12/01/19 21:00 12/02/19 09:42 Labetalol 100 Mg Tab PO 400 mg BID JOSSY Administration Levothyroxine Sodium 100 mcg 11/22/19 06:00 12/02/19 05:40 Synthroid PO 100 mcg 0600 JOSSY Administration Methylprednisolone Sodium Succinate 80 mg 11/24/19 21:00 12/02/19 09:46 Solu-Medrol IVP 80 mg Q12HR JOSSY Administration Olanzapine 10 mg 11/23/19 21:00 12/01/19 20:25 Zyprexa PO 10 mg HS JOSSY Administration Propofol 1,000 mg 11/21/19 02:24 12/02/19 10:02 Diprivan IV 12/21/19 02:24 1,000 mg INF PRN Administration TO ACHIEVE GOAL RASS Protocol Sodium Bicarbonate 650 mg 11/30/19 15:00 12/02/19 09:37 Sodium Bicarbonate Tab 325 Mg Tab PO 650 mg TID JOSSY Administration Sodium Chloride 10 ml 11/25/19 09:00 12/02/19 10:02 Flush - Normal Saline IVF 10 ml Q12HR JOSSY Administration Spironolactone 100 mg 12/02/19 09:00 12/02/19 09:40 Spironolactone 100 Mg Tab PO 100 mg DAILY JOSSY Administration - Exam General - other findings: Sedated ENT: normocephalic atraumatic ENT - other findings: ET tube is in place Neck: symmetric Respiratory: tachypneic Respiratory - other findings: Ventilator transmitted sound noted Cardiovascular: RRR Heart - other findings: tachypneic Gastrointestinal: soft, non-distended, diminished bowl sounds Gastrointestinal - other findings: obese Extremities - other findings: edema of the extremities especially upper limbs Neurological - other findings: Sedated Nephrology Results - Labs Result Diagrams: 12/02/19 04:30 12/02/19 04:30 Lab results: WBC 12.5 thou/uL (4.8-10.8) H 12/02/19 04:30 Hgb 9.8 g/dL (12.0-16.0) L 12/02/19 04:30 Hct 30.3 % (36.0-47.0) L 12/02/19 04:30 MCV 96.5 fL (78.0-98.0) 12/02/19 04:30 Plt Count 316 thou/uL (130-400) 12/02/19 04:30 Neutrophils % 87.4 % (42.0-75.0) H 11/21/19 01:12 Band Neuts % (Manual) 5 % (5-11) 12/02/19 04:30 ABG pH 7.40 (7.35-7.45) 12/01/19 07:15 ABG pCO2 29.0 mmHg (35.0-45.0) L 12/01/19 07:15 ABG pO2 72.4 mmHg (> 80.0) 12/01/19 07:15 Sodium 145 mmol/L (136-145) 12/02/19 04:30 Potassium 4.3 mmol/L (3.5-5.1) 12/02/19 04:30 Chloride 113 mmol/L (98-107) H 12/02/19 04:30 Carbon Dioxide 19 mmol/L (23-31) L 12/02/19 04:30 BUN 95 mg/dL (9.8-20.1) H 12/02/19 04:30 Creatinine 1.87 mg/dL (0.6-1.1) H 12/02/19 04:30 Glucose 189 mg/dL (80-115) H 12/02/19 04:30 Lactic Acid 1.9 mmol/L (0.5-2.2) 11/21/19 01:12 Calcium 8.6 mg/dL (7.8-10.44) 12/02/19 04:30 Total Bilirubin 0.3 mg/dL (0.2-1.2) 12/02/19 04:30 AST 13 U/L (5-34) 12/02/19 04:30 ALT 11 U/L (8-55) 12/02/19 04:30 Alkaline Phosphatase 111 U/L (40-110) H 12/02/19 04:30 Creatine Kinase 191 U/L (29-168) H 11/21/19 02:08 Troponin I 0.013 ng/mL (< 0.028) 11/21/19 01:12 C-Reactive Protein 13.93 mg/dL (= or < 0.5) H 11/25/19 03:00 B-Natriuretic Peptide 56.8 pg/mL (0-100) 11/21/19 01:12 Serum Total Protein 6.0 g/dL (6.0-8.3) 12/02/19 04:30 Albumin 2.5 g/dL (3.4-4.8) L 12/02/19 04:30 Urine Ketones Negative mg/dL (Negative) 11/21/19 01:00 Urine Blood Trace (Negative) A 11/21/19 01:00 Urine Nitrite Negative (Negative) 11/21/19 01:00 Ur Leukocyte Esterase Negative Sarahy/uL (Negative) 11/21/19 01:00 Urine RBC None Seen HPF (0-3) 11/21/19 01:00 Urine WBC 0-3 HPF (0-3) 11/21/19 01:00 Ur Squamous Epith Cells 7-10 HPF (0-3) A 11/21/19 01:00 Urine Bacteria 1+ HPF (None Seen) A 11/21/19 01:00 Nephrology AP PN - Plan ASSESSMENT: Acute kidney injury due to hemodynamic factors, markedly improved. Creatinine is marginally up with commencement of diuretic but still better than recent baseline. Chronic kidney disease stage 3. Fluid overload. Hypoalbuminemia Metabolic acidosis. Initially due to sepsis but currently due mostly to hyperchloremic acidosis. Hypertension. Control is better. Primary hyperaldosteronism, on spironolactone. Septic shock, resolved. Staphylococcus bacteremia. Acute respiratory failure on the vent COVID pneumonia. Multifocal pneumonia. Right-sided pneumothorax. PLAN: Give albumin. Continue diuretic therapy with lasix Increase spironolactone to 100 mg daily. Monitor electrolytes closely Labetalol increased to 400 bid to get better BP control. Continue oral sodium bicarbonate as well.
[2019-12-02] MEDS: Albumin 25% 25 GM/100 ML BOT IVPB SCH ×2 (13:42→20:23)
[2019-12-02 15:05] LABS: Bacteria/HPF None Seen HPF (None Seen); Bilirubin Negative (Negative); Blood, Urine Negative (Negative); Clarity Clear (Clear); Glucose, Urine (Dipstick) Normal (Negative); Ketone, Urine Negative (Negative); Leukocyte Negative Leu/uL (Negative); Nitrite Negative (Negative); Protein, Urine (Dipstick) Negative (Neg-Trace); RBC/HPF 0-3 HPF (0-3); Specific Gravity, Urine 1.014 (1.002-1.036); Squamous Epithelial 0-3 HPF (0-3); Urobilinogen Normal mg/dL (Less than 2); WBC/HPF 0-3 HPF (0-3)
[2019-12-02 15:13] LABS: Urine Culture Reflex No No; Yeast-Budding 2+ HPF (None Seen)
[2019-12-02] MEDS: Enoxaparin Sodium 80 MG/0.8 ML SYRINGE SC SCH (20:19)
[2019-12-02] MEDS: OLANZapine 5 MG TAB PO SCH (20:22)
[2019-12-02] MEDS ORDERED: Furosemide 40 MG/4 ML VIAL SLOW IVP SCH (21:00)
[2019-12-03] MEDS: Oxacillin 2 GM in Sodium Chloride 0.9% 100 ML IVPB SCH ×6 (00:06→19:44)
--- NOTE | 2019-12-03 01:05 | PDOC.HOSPP ---
- Subjective Encounter Date: 12/02/19 Subjective: Patient was not physically examined by me. She was really assessed by pulmonology team/nephrology. No acute events reported overnight. - Objective Vital Signs & Weight: Vital Signs (12 hours) Pulse Resp BP Pulse Ox 12/03/19 00:00 26 H 12/02/19 22:00 30 H 12/02/19 20:26 106 H 12/02/19 20:22 106 H 12/02/19 20:00 47 H 95 12/02/19 18:00 26 H 12/02/19 16:00 26 H 12/02/19 15:09 106 H 117/77 12/02/19 14:00 25 H 12/02/19 13:43 126 H 180/96 H Weight Admit Weight 197 lb Weight 221 lb 1.978 oz Most Recent Monitor Data Heart Rate from ECG 96 NIBP 160/86 NIBP BP-Mean 110 Respiration from ECG 26 SpO2 96 I&O: 12/01/19 12/02/19 12/03/19 06:59 06:59 06:59 Intake Total 2995 6608.4 1640 Output Total 2320 3395 3175 Balance 675 3213.4 -1535 Result Diagrams: 12/02/19 04:30 12/02/19 04:30 Additional Labs: Accuchecks 12/02/19 12/02/19 12/02/19 20:48 16:38 10:14 POC Glucose 147 H 185 H 171 H 12/02/19 04:36 POC Glucose 189 H Hospitalist ROS - Medication Medications: Active Medications Generic Name Dose Route Start Last Admin Trade Name Freq PRN Reason Stop Dose Admin Acetaminophen 650 mg 11/21/19 05:39 11/21/19 13:23 Tylenol [place] 650 mg Q6H PRN Administration Fever > 101 or Mild Pain Acetaminophen 650 mg 11/24/19 16:43 12/02/19 12:28 Tylenol Elixir PER TUBE 650 mg Q6H PRN Administration Fever > 100.3 Ascorbic Acid 1,000 mg 11/25/19 09:00 12/02/19 09:43 Vitamin C PO 1,000 mg DAILY JOSSY Administration Cholecalciferol 400 units 11/27/19 09:00 12/02/19 09:44 Vitamin D PER TUBE 400 units DAILY JOSSY Administration Clonidine 0.3 mg 11/23/19 13:00 11/30/19 12:15 Iuijhokp-Upp-2 TD 0.3 mg Q7D JOSSY Administration Dextrose/Water 25 gm 11/21/19 04:06 11/21/19 04:21 Dextrose 50% SLOW IVP 25 gm PRN PRN Administration Hypoglycemia Enoxaparin Sodium 80 mg 11/25/19 21:00 12/02/19 20:19 Lovenox SC 80 mg 2100 JOSSY Administration Famotidine 20 mg 11/24/19 09:00 12/02/19 09:41 Pepcid PO 20 mg DAILY JOSSY Administration Fluoxetine HCl 60 mg 11/22/19 09:00 12/02/19 09:43 Prozac PO 60 mg DAILY JOSSY Administration Furosemide 40 mg 12/02/19 09:00 12/02/19 09:46 Furosemide 40 Mg/4 Ml Vial SLOW IVP 40 mg DAILY JOSSY Administration Gabapentin 600 mg 11/21/19 15:00 12/02/19 13:43 Neurontin PO 600 mg TID JOSSY Administration Hydralazine HCl 100 mg 11/23/19 15:00 12/02/19 20:26 Apresoline PO 100 mg TID JOSSY Administration Nicardipine HCl 50 mg/ Sodium 250 mls @ 0 mls/hr 11/24/19 09:45 11/26/19 18:34 Chloride IV 250 mls INF JOSSY Administration Protocol As Directed Oxacillin Sodium 2 gm/ Sodium 100 mls @ 200 mls/hr 11/27/19 09:00 12/03/19 00:06 Chloride IVPB 100 mls Q4HR JOSSY Administration Dexmedetomidine HCl 400 mcg/ 100 mls @ 0 mls/hr 12/01/19 19:00 12/02/19 20:23 Sodium Chloride IVPB 100 mls INF JOSSY Administration Protocol Titrate Insulin Human Lispro 0 units 11/24/19 10:33 12/02/19 16:40 Humalog SC 2 unit .MODERATE SLIDING SC PRN Administration Moderate Correctional Scale Insulin Human NPH 30 unit 11/28/19 09:00 12/02/19 20:19 Humulin N SC 30 unit Q12HR JOSSY Administration Isosorbide Dinitrate 20 mg 11/28/19 15:00 12/02/19 20:22 Isordil PO 20 mg TID JOSSY Administration Labetalol HCl 400 mg 12/01/19 21:00 12/02/19 20:22 Labetalol 100 Mg Tab PO 400 mg BID JOSSY Administration Levothyroxine Sodium 100 mcg 11/22/19 06:00 12/02/19 05:40 Synthroid PO 100 mcg 0600 JOSSY Administration Methylprednisolone Sodium Succinate 80 mg 11/24/19 21:00 12/02/19 20:22 Solu-Medrol IVP 80 mg Q12HR JOSSY Administration Olanzapine 10 mg 11/23/19 21:00 12/02/19 20:22 Zyprexa PO 10 mg HS JOSSY Administration Propofol 1,000 mg 11/21/19 02:24 12/02/19 20:23 Diprivan IV 12/21/19 02:24 1,000 mg INF PRN Administration TO ACHIEVE GOAL RASS Protocol Sodium Bicarbonate 650 mg 11/30/19 15:00 12/02/19 20:20 Sodium Bicarbonate Tab 325 Mg Tab PO 650 mg TID JOSSY Administration Sodium Chloride 10 ml 11/25/19 09:00 12/02/19 20:20 Flush - Normal Saline IVF 10 ml Q12HR JOSSY Administration Spironolactone 100 mg 12/02/19 09:00 12/02/19 09:40 Spironolactone 100 Mg Tab PO 100 mg DAILY JOSSY Administration Hosp A/P - Plan 64-year-old female patient admitted in the ICU on ventilator support on account of acute hypoxic respiratory failure with COVID pneumonia. Also has Staphylococcus bacteremia and hypertension. Continue management in CCU. Generally stable. No significant improvement however no deterioration. No direct physical contact at this time. Acute hypoxic respiratory failure Secondary to COVID pneumonia Continue ventilator management Ongoing on ventilator. Pulmonology following. Right pneumothorax Chest tubes in place. COVID pneumonia Continues anticoagulation Also on steroids. Continue close monitoring. Staph aureus bacteremia Continue on oxacillin Port has been removed ID follow Acute kidney injury Improved creatinine down from 2.04-1.95 Nephrology following. Hypertensionimproved Was on nicardipine dripcurrently discontinued Also on spironolactone, minoxidil, isosorbide dinitrate and hydralazine Continue blood pressure monitoring. Hyperglycemiaimproved. Blood sugar controlled on NPH 30 every 12 Moderate correctional sliding scale. Continue close monitoring. Hypothyroidism Continue levothyroxine VTE prophylaxistherapeutic: Lovenox Dispositionpending improvement. Prognosis is generally poor.
[2019-12-03] MEDS: Propofol 1,000 MG/100 ML VIAL IV PRN ×5 (02:16→19:46)
[2019-12-03 05:28] LABS: ALT (SGPT) 10 U/L (8-55); AST (SGOT) 11 U/L (5-34); Albumin 3.2 g/dL (3.4-4.8); Alkaline Phosphatase 91 U/L (40-110); Anion Gap 17 mmol/L (10-20); BUN (Urea Nitrogen) 96 mg/dL (9.8-20.1); Bilirubin, Total 0.3 mg/dL (0.2-1.2); Calc. Creatinine Clearance 44 mL/min (70-130); Carbon Dioxide 20 mmol/L (23-31); Chloride 117 mmol/L (98-107); Estimated GFR-MDRD 30; Globulin 3.2 g/dL (2.4-3.5); Glucose 115 mg/dL (80-115); Potassium 4.2 mmol/L (3.5-5.1); Protein, Total 6.4 g/dL (6.0-8.3); Sodium 150 mmol/L (136-145)
[2019-12-03 05:44] LABS: Band 6 % (5-11); Hemoglobin 8.8 g/dL (12.0-16.0); Lymphocytes 6 % (21-51); MDiff Complete? YES; Mean Corpuscular HGB CONC 32.6 g/dL (32.0-36.0); Mean Corpuscular Hemoglobin 31.5 pg (27.0-31.0); Mean Corpuscular Volume 96.7 fL (78.0-98.0); Mean Platelet Volume 9.6 fL (7.4-10.4); Monocytes 4 % (0-10); Neutrophil 84 % (42-75); Platelet Count 294 thou/uL (130-400); RBC Distribution Width 14.4 % (11.5-14.5); White Blood Cell (WBC) Count 13.1 thou/uL (4.8-10.8)
[2019-12-03] MEDS: Levothyroxine Sodium 100 MCG TAB PO SCH (05:44)
[2019-12-03] MEDS ORDERED: Metolazone 5 MG TAB PO SCH (08:00)
[2019-12-03 08:43] LABS: INR-International Normal Ratio 1.3; PTT 45.1 sec (22.9-36.1); Prothrombin Time 15.9 sec (12.0-14.7)
[2019-12-03] MEDS: methylPREDNISolone Sod Succ/PF 125 MG/2 ML VIAL IVP SCH ×2 (09:28→19:43)
[2019-12-03] MEDS: Furosemide 40 MG/4 ML VIAL SLOW IVP SCH (09:28)
[2019-12-03] MEDS: NPH, Human Insulin Isophane 300 UNIT/3 ML VIAL SC SCH ×2 (09:29→19:43)
[2019-12-03] MEDS: Sodium Bicarbonate Tab 325 MG TAB PO SCH ×3 (09:30→19:41)
[2019-12-03] MEDS: Spironolactone 100 MG TAB PO SCH (09:31)
[2019-12-03] MEDS: FLUoxetine HCl 20 MG CAP PO SCH (09:31)
[2019-12-03] MEDS: hydrALAZINE 25 MG TAB PO SCH ×3 (09:31→19:42)
[2019-12-03] MEDS: Gabapentin 300 MG CAP PO SCH ×3 (09:32→19:43)
[2019-12-03] MEDS: Ascorbic Acid 500 mg Chewable Tablet PO SCH (09:32)
[2019-12-03] MEDS: Famotidine 20 MG TAB PO SCH (09:33)
[2019-12-03] MEDS: Labetalol 100 MG TAB PO SCH ×3 (09:33→19:42)
[2019-12-03] MEDS: Isosorbide Dinitrate 20 MG TAB PO SCH ×3 (09:33→19:43)
[2019-12-03] MEDS: Cholecalciferol (Vitamin D3) 400 UNITS TAB PER TUBE SCH (09:34)
--- NOTE | 2019-12-03 10:03 | PRG ---
DATE OF SERVICE: 12/03/2019 SUBJECTIVE: Ms. Mosqueda remains on the ventilator with current settings of bilevel at 34/14. She is on FiO2 of 65%. She is currently sedated. There has been no movement in her ventilator or general condition in the past several days. PHYSICAL EXAMINATION: VITAL SIGNS: Blood pressure 171/100. Heart rate is 87. She is afebrile. Ventilator is as above. She has a pair of chest tubes in the right chest with a very small leak in the anterior tube. Her I's and O's show her to be in positive fluid balance, although not enough to explain the dramatic increase in weight. She is sedated and intubated. HEENT: Shows no adenopathy, JVD or carotid bruit. LUNGS: Bilateral crackles without wheezes. HEART: Regular rate and rhythm. She has a resting tachycardia. ABDOMEN: Obese and soft. There is no organomegaly. EXTREMITIES: She has 1+ edema. LABORATORY DATA: White count 13,100, hemoglobin is 8.8 with hematocrit of 27.1, and platelet count of 294,000. Her hematocrit has gradually been dropping from 45 on admission, most likely due to iatrogenic loss with phlebotomy. Protime is 15.9 seconds with INR of 1.3. Electrolytes include sodium 150, potassium 4.2, chloride 117, CO2 is 20, BUN is 96 with creatinine of 2. Chest x-ray shows chest tubes in appropriate position. The lateral tube is fairly abrupt angulation and may explain why it is not working as well. Central line on the left, very tortuous. Endotracheal tube is in good position. Heart size is normal. There are interstitial findings bilaterally. I do not see a significant effusion. There is very small apical pneumothorax remaining in the right. IMPRESSION: 1. COVID pneumonia with respiratory failure requiring significant support and oxygen demands, which have not improved, pretending a very poor prognosis. 2. Status post right pneumothorax, now with a chest tube in place and a small persistent leak. 3. Acute on chronic renal insufficiency followed by Nephrology. 4. Staph bacteremia. PLAN: We will continue current ventilator support. She has been treated appropriately from a COVID perspective. Because of her previous chest tube in difficulties, prone positioning is not being performed now. We continue to appreciate input from Nephrology. Prognosis remains guarded. I will see if there is any family with which I can have a followup conversation. OTHER: Critical care, 35 minutes. Job ID: [id number]
[2019-12-03] MEDS ORDERED: Isosorbide Dinitrate 20 MG TAB PO SCH ×3 (10:13→10:30)
[2019-12-03] MEDS ORDERED: Pantoprazole 40 MG VIAL IVP SCH ×2 (10:19→10:30)
--- NOTE | 2019-12-03 10:24 | PDOC.NEPPN ---
- Subjective Encounter Date: 12/03/19 Subjective: 64 y/o female seen in follow up for MOOK on CKD, volume overload and HTN. Still intubated and mechanically ventilated. Fever of yesterday has subsided. - Objective Vital Signs & Weight: Vital Signs (12 hours) Pulse Resp BP Pulse Ox 12/03/19 10:00 26 H 12/03/19 09:33 85 172/102 H 12/03/19 09:31 85 172/102 H 12/03/19 08:00 26 H 12/03/19 07:13 98 12/03/19 07:07 85 172/102 H 12/03/19 06:00 26 H 12/03/19 04:00 26 H 12/03/19 01:58 26 H 12/03/19 00:00 26 H Weight Admit Weight 197 lb Weight 220 lb 7.396 oz Most Recent Monitor Data Heart Rate from ECG 85 NIBP 181/108 NIBP BP-Mean 132 Respiration from ECG 26 SpO2 98 I&O: 12/02/19 12/03/19 12/04/19 06:59 06:59 06:59 Intake Total 6608.4 5170 620 Output Total 3395 4125 470 Balance 3213.4 1045 150 Result Diagrams: 12/03/19 04:30 12/03/19 04:30 Additional Labs: Accuchecks 12/02/19 12/02/19 12/02/19 20:48 16:38 10:14 POC Glucose 147 H 185 H 171 H Nephrology ROS - Medication Medications: Active Medications Generic Name Dose Route Start Last Admin Trade Name Freq PRN Reason Stop Dose Admin Acetaminophen 650 mg 11/21/19 05:39 11/21/19 13:23 Tylenol [place] 650 mg Q6H PRN Administration Fever > 101 or Mild Pain Acetaminophen 650 mg 11/24/19 16:43 12/02/19 12:28 Tylenol Elixir PER TUBE 650 mg Q6H PRN Administration Fever > 100.3 Ascorbic Acid 1,000 mg 11/25/19 09:00 12/03/19 09:32 Vitamin C PO 1,000 mg DAILY JOSSY Administration Cholecalciferol 400 units 11/27/19 09:00 12/03/19 09:34 Vitamin D PER TUBE 400 units DAILY JOSSY Administration Clonidine 0.3 mg 11/23/19 13:00 11/30/19 12:15 Crfukwil-Vca-4 TD 0.3 mg Q7D JOSSY Administration Dextrose/Water 25 gm 11/21/19 04:06 11/21/19 04:21 Dextrose 50% SLOW IVP 25 gm PRN PRN Administration Hypoglycemia Enoxaparin Sodium 80 mg 11/25/19 21:00 12/02/19 20:19 Lovenox SC 80 mg 2100 JOSSY Administration Fluoxetine HCl 60 mg 11/22/19 09:00 12/03/19 09:31 Prozac PO 60 mg DAILY JOSSY Administration Furosemide 40 mg 12/02/19 09:00 12/03/19 09:28 Furosemide 40 Mg/4 Ml Vial SLOW IVP 40 mg DAILY JOSSY Administration Gabapentin 600 mg 11/21/19 15:00 12/03/19 09:32 Neurontin PO 600 mg TID JOSSY Administration Hydralazine HCl 100 mg 11/23/19 15:00 12/03/19 09:31 Apresoline PO 100 mg TID JOSSY Administration Nicardipine HCl 50 mg/ Sodium 250 mls @ 0 mls/hr 11/24/19 09:45 11/26/19 18:34 Chloride IV 250 mls INF JOSSY Administration Protocol As Directed Oxacillin Sodium 2 gm/ Sodium 100 mls @ 200 mls/hr 11/27/19 09:00 12/03/19 09:30 Chloride IVPB 100 mls Q4HR JOSSY Administration Dexmedetomidine HCl 400 mcg/ 100 mls @ 0 mls/hr 12/01/19 19:00 12/03/19 05:43 Sodium Chloride IVPB 100 mls INF JOSSY Administration Protocol Titrate Insulin Human Lispro 0 units 11/24/19 10:33 12/02/19 16:40 Humalog SC 2 unit .MODERATE SLIDING SC PRN Administration Moderate Correctional Scale Insulin Human NPH 30 unit 11/28/19 09:00 12/03/19 09:29 Humulin N SC 30 unit Q12HR JOSSY Administration Labetalol HCl 400 mg 12/03/19 09:00 12/03/19 09:33 Labetalol 100 Mg Tab PO 400 mg TID JOSSY Administration Levothyroxine Sodium 100 mcg 11/22/19 06:00 12/03/19 05:44 Synthroid PO 100 mcg 0600 JOSSY Administration Methylprednisolone Sodium Succinate 80 mg 11/24/19 21:00 12/03/19 09:28 Solu-Medrol IVP 80 mg Q12HR JOSSY Administration Olanzapine 10 mg 11/23/19 21:00 12/02/19 20:22 Zyprexa PO 10 mg HS JOSSY Administration Propofol 1,000 mg 11/21/19 02:24 12/03/19 09:48 Diprivan IV 12/21/19 02:24 1,000 mg INF PRN Administration TO ACHIEVE GOAL RASS Protocol Sodium Bicarbonate 650 mg 11/30/19 15:00 12/03/19 09:30 Sodium Bicarbonate Tab 325 Mg Tab PO 650 mg TID JOSSY Administration Sodium Chloride 10 ml 11/25/19 09:00 12/03/19 09:28 Flush - Normal Saline IVF 10 ml Q12HR JOSSY Administration Spironolactone 100 mg 12/02/19 09:00 12/03/19 09:31 Spironolactone 100 Mg Tab PO 100 mg DAILY JOSSY Administration - Exam General - other findings: sedated Eye: anicteric sclera ENT: normocephalic atraumatic ENT - other findings: ET tube is in place Respiratory - other findings: Ventilated breat sound noted Cardiovascular: RRR Gastrointestinal: soft, non-distended, diminished bowl sounds Gastrointestinal - other findings: obese. okeefe catheter in place. Extremities - other findings: mild to moderate edema of the extremities noted Neurological - other findings: Sedated Nephrology Results - Labs Result Diagrams: 12/03/19 04:30 12/03/19 04:30 Lab results: WBC 13.1 thou/uL (4.8-10.8) H 12/03/19 04:30 Hgb 8.8 g/dL (12.0-16.0) L 12/03/19 04:30 Hct 27.1 % (36.0-47.0) L 12/03/19 04:30 MCV 96.7 fL (78.0-98.0) 12/03/19 04:30 Plt Count 294 thou/uL (130-400) 12/03/19 04:30 Neutrophils % 87.4 % (42.0-75.0) H 11/21/19 01:12 Band Neuts % (Manual) 6 % (5-11) 12/03/19 04:30 ABG pH 7.40 (7.35-7.45) 12/01/19 07:15 ABG pCO2 29.0 mmHg (35.0-45.0) L 12/01/19 07:15 ABG pO2 72.4 mmHg (> 80.0) 12/01/19 07:15 Sodium 150 mmol/L (136-145) H 12/03/19 04:30 Potassium 4.2 mmol/L (3.5-5.1) 12/03/19 04:30 Chloride 117 mmol/L (98-107) H 12/03/19 04:30 Carbon Dioxide 20 mmol/L (23-31) L 12/03/19 04:30 BUN 96 mg/dL (9.8-20.1) H 12/03/19 04:30 Creatinine 2.01 mg/dL (0.6-1.1) H 12/03/19 04:30 Glucose 115 mg/dL (80-115) 12/03/19 04:30 Lactic Acid 1.9 mmol/L (0.5-2.2) 11/21/19 01:12 Calcium 9.0 mg/dL (7.8-10.44) 12/03/19 04:30 Total Bilirubin 0.3 mg/dL (0.2-1.2) 12/03/19 04:30 AST 11 U/L (5-34) 12/03/19 04:30 ALT 10 U/L (8-55) 12/03/19 04:30 Alkaline Phosphatase 91 U/L (40-110) 12/03/19 04:30 Creatine Kinase 191 U/L (29-168) H 11/21/19 02:08 Troponin I 0.013 ng/mL (< 0.028) 11/21/19 01:12 C-Reactive Protein 13.93 mg/dL (= or < 0.5) H 11/25/19 03:00 B-Natriuretic Peptide 56.8 pg/mL (0-100) 11/21/19 01:12 Serum Total Protein 6.4 g/dL (6.0-8.3) 12/03/19 04:30 Albumin 3.2 g/dL (3.4-4.8) L 12/03/19 04:30 Urine Ketones Negative mg/dL (Negative) 12/02/19 14:20 Urine Blood Negative (Negative) 09/18/20 14:20 Urine Nitrite Negative (Negative) 12/02/19 14:20 Ur Leukocyte Esterase Negative Sarahy/uL (Negative) 12/02/19 14:20 Urine RBC 0-3 HPF (0-3) 12/02/19 14:20 Urine WBC 0-3 HPF (0-3) 12/02/19 14:20 Ur Squamous Epith Cells 0-3 HPF (0-3) 12/02/19 14:20 Urine Bacteria None Seen HPF (None Seen) 12/02/19 14:20 Nephrology AP PN - Plan ASSESSMENT: Acute kidney injury due to hemodynamic factors, markedly improved. Creatinine is marginally up with commencement of diuretic but still better than recent baseline. Chronic kidney disease stage 3. Hypernatremia: Due to inadequate free water intake and lasix diuretic. Fluid overload. Hypoalbuminemia Metabolic acidosis. Initially due to sepsis but currently due mostly to hyperchloremic acidosis. Hypertension. Control is better. Primary hyperaldosteronism, on spironolactone. Septic shock, resolved. Staphylococcus bacteremia. Acute respiratory failure on the vent COVID pneumonia. Multifocal pneumonia. Right-sided pneumothorax. Acute anemia: HB is down from 12 on 11/28/2019 to 8.8 today. No overt bleeding. Patient is on anticoagulation with lovenox. PLAN: Start amlodipine. Continue clonidine, labetalol, hydralazine, isosorbide. Add metolazone to lasix especially in view of hypernatremia Start free water 200 cc every 4hrs via NG tube Continue spironolactone to 100 mg daily and monitor serum potassium Continue oral sodium bicarbonate. Get repeat inflammatory markers. Also get iron chemistry, coagulation profile. Start PPI and DC pepcid. Get stool occult blood. CT scan on the chest/abd/pelvis contemplated. Will get this if evaluation for acute anemia is non diagnostic. retroperitoneal bleed is a concern
[2019-12-03] MEDS ORDERED: Amlodipine 10 MG TAB PO SCH (10:30)
[2019-12-03 13:37] LABS: Iron 47 ug/dL (50-170); Iron Binding Capacity, Total 156 mcg/dL (265-497)
[2019-12-03] MEDS: Lorazepam 2 MG/ML VIAL SLOW IVP PRN (14:18)
--- NOTE | 2019-12-03 16:12 | RAD ---
ONE VIEW CHEST: 12/03/19 HISTORY: Pneumonia. COMPARISON: 12/02/19. FINDINGS: Right sided thoracostomy tubes, endotracheal tube, left sided vascular catheter, and nasogastric tube remain in place and unchanged in position. There is a trace right apical pneumothorax again seen. Th ere are patchy increased densities again seen at each lung base which may be related to viral pneumon itis or possibly infectious process. No other interval change. IMPRESSION: 1. Overall stable chest with lines and tubes unchanged in position. 2. Persistent tiny right apical pneumothorax. 3. Persistent interstitial and patchy parenchymal air space opacities at each lung base which co uld be related to infectious process or possibly viral pneumonitis in the correct clinical scenario. POS: DEVON
[2019-12-03] MEDS: Enoxaparin Sodium 80 MG/0.8 ML SYRINGE SC SCH (19:41)
[2019-12-03] MEDS: OLANZapine 5 MG TAB PO SCH (19:42)
[2019-12-03] MEDS: Pantoprazole 40 MG VIAL IVP SCH (19:44)
[2019-12-03] MEDS: HumaLOG 300 UNITS/3 ML VIAL SC PRN (20:52)
[2019-12-03] MEDS ORDERED: Furosemide 40 MG/4 ML VIAL SLOW IVP SCH (21:00)
--- NOTE | 2019-12-03 22:39 | PDOC.BPN ---
- Brief Progress Note Encounter Date: 12/03/19 Encounter Time: 22:36 L subclavian central line cultures positive for yeast in 1/2 bottles. Line has been removed, fluconazole 800 mg IV loading dose started. Discussed with Dr. Butler. Patient HD stable. Consider ID consult in am.
[2019-12-03] MEDS: Fluconazole In NaCl,Iso-Osm 400 MG in Premix Bag 1 BAG IVPB SCH (22:54)
[2019-12-03] MEDS: Labetalol HCl 100 MG/20 ML VIAL IVPB PRN (23:46)
[2019-12-04] MEDS: Oxacillin 2 GM in Sodium Chloride 0.9% 100 ML IVPB SCH ×6 (00:27→21:15)
[2019-12-04] MEDS: niCARdipine 50 MG in Sodium Chloride 0.9% 250 ML 230 ML IV SCH ×3 (00:27→08:54)
[2019-12-04] MEDS: Fluconazole In NaCl,Iso-Osm 400 MG in Premix Bag 1 BAG IVPB SCH (00:27)
[2019-12-04] MEDS: Lorazepam 2 MG/ML VIAL SLOW IVP PRN (02:45)
[2019-12-04] MEDS: Levothyroxine Sodium 100 MCG TAB PO SCH (05:03)
[2019-12-04] MEDS: Propofol 1,000 MG/100 ML VIAL IV PRN ×2 (05:03→11:39)
[2019-12-04] MEDS: HumaLOG 300 UNITS/3 ML VIAL SC PRN ×3 (05:41→23:08)
[2019-12-04 05:42] LABS: Band 2 % (5-11); Hemoglobin 9.2 g/dL (12.0-16.0); Lymphocytes 5 % (21-51); MDiff Complete? YES; Mean Corpuscular Hemoglobin 32.1 pg (27.0-31.0); Mean Corpuscular Volume 97.3 fL (78.0-98.0); Mean Platelet Volume 9.2 fL (7.4-10.4); Monocytes 4 % (0-10); Neutrophil 89 % (42-75); Platelet Count 312 thou/uL (130-400); Platelet Morphology Comment Appears Adequate; RBC Distribution Width 14.7 % (11.5-14.5); RBC Morphology Normal; Red Blood Cell (RBC) Count 2.88 mill/uL (4.20-5.40); White Blood Cell (WBC) Count 12.5 thou/uL (4.8-10.8)
[2019-12-04 06:00] LABS: ALT (SGPT) 9 U/L (8-55); AST (SGOT) 10 U/L (5-34); Albumin 3.1 g/dL (3.4-4.8); Alkaline Phosphatase 94 U/L (40-110); Anion Gap 19 mmol/L (10-20); BUN (Urea Nitrogen) 95 mg/dL (9.8-20.1); Bilirubin, Total 0.2 mg/dL (0.2-1.2); Calc. Creatinine Clearance 44 mL/min (70-130); Calcium 9.1 mg/dL (7.8-10.44); Carbon Dioxide 20 mmol/L (23-31); Chloride 113 mmol/L (98-107); Estimated GFR-MDRD 30; Globulin 3.5 g/dL (2.4-3.5); Glucose 216 mg/dL (80-115); Potassium 3.8 mmol/L (3.5-5.1); Protein, Total 6.6 g/dL (6.0-8.3); Sodium 148 mmol/L (136-145)
[2019-12-04] MEDS ORDERED: Isosorbide Dinitrate 20 MG TAB PO SCH (06:45)
[2019-12-04] MEDS: Metolazone 5 MG TAB PO SCH (08:24)
[2019-12-04] MEDS: Cholecalciferol (Vitamin D3) 400 UNITS TAB PER TUBE SCH (08:24)
[2019-12-04] MEDS: Spironolactone 100 MG TAB PO SCH (08:24)
[2019-12-04] MEDS: FLUoxetine HCl 20 MG CAP PO SCH (08:24)
[2019-12-04] MEDS: Sodium Bicarbonate Tab 325 MG TAB PO SCH ×3 (08:24→21:17)
[2019-12-04] MEDS: Labetalol 100 MG TAB PO SCH ×4 (08:25→23:25)
[2019-12-04] MEDS: Gabapentin 300 MG CAP PO SCH ×3 (08:25→21:10)
[2019-12-04] MEDS: Ascorbic Acid 500 mg Chewable Tablet PO SCH (08:27)
[2019-12-04] MEDS: hydrALAZINE 25 MG TAB PO SCH ×4 (08:27→23:15)
[2019-12-04] MEDS: Amlodipine 10 MG TAB PO SCH (08:28)
[2019-12-04] MEDS: methylPREDNISolone Sod Succ/PF 125 MG/2 ML VIAL IVP SCH ×2 (08:29→21:12)
[2019-12-04] MEDS: Furosemide 40 MG/4 ML VIAL SLOW IVP SCH (08:29)
[2019-12-04] MEDS: Pantoprazole 40 MG VIAL IVP SCH ×2 (08:32→21:17)
[2019-12-04] MEDS: NPH, Human Insulin Isophane 300 UNIT/3 ML VIAL SC SCH ×2 (08:33→21:22)
[2019-12-04] MEDS: Isosorbide Dinitrate 20 MG TAB PO SCH ×3 (09:07→21:11)
--- NOTE | 2019-12-04 09:14 | RAD ---
EXAM: CHEST ONE VIEW HISTORY: Pneumonia. Follow-up evaluation. COMPARISON: 12/03/2019 FINDINGS: Endotracheal tube, nasogastric tube, left-sided vascular catheter, and 2 right-sided thoracostomy tub es remain in place and unchanged in position. There is a small right-sided pneumothorax seen at the right lung apex and lateral right midlung zone. Increased interstitial opacities are again seen at ea ch lung base. There is mild increase in perihilar interstitial densities also present on this exam. No significant interval change. IMPRESSION: 1. Right-sided thoracostomy tubes remain in place with persistent small right-sided pneumothorax. 2. Persistent interstitial opacities bilaterally greater at each lung base and overall similar to dean or study. Findings may be related to infectious process.
--- NOTE | 2019-12-04 12:31 | PRG ---
DATE OF SERVICE: 12/04/2019 SUBJECTIVE: She continues to receive ventilatory support without change. She is still requiring 60% to 65% oxygen. She has had very hmfucdefl-tb-dxblqad blood pressure despite a maximal regimen including clonidine 0.3 t.i.d., hydralazine 100 mg t.i.d., isosorbide 40 mg t.i.d., labetalol 400 mg t.i.d., metolazone 5 mg daily, Aldactone 100 mg daily. Despite this, she has intermittently needed nicardipine. There is not much to add to her regimen except an GASPER/ARB, and it appears as though she was taking losartan 100 mg daily prior to admission. OBJECTIVE: VITAL SIGNS: Blood pressure 142/87, heart rate 87, pulse ox 99% on FiO2 of 35%. GENERAL: She is intubated, not responsive to verbal stimuli. HEENT: Shows no adenopathy or JVD. LUNGS: Show coarse rales, but no wheezes. HEART: Regular rate and rhythm. ABDOMEN: Soft. EXTREMITIES: She has trace edema. LABORATORY DATA: White count 12,500, hemoglobin is 9.2 with platelet count 89,000. Sodium 148, potassium 3.8, chloride 113, CO2 is 20, BUN 95, and creatinine 2.0. IMPRESSION: 1. COVID pneumonia with respiratory failure and prolonged intubation. A decision regarding trach is deferred. 2. Severe hypertension, on maximal regimen. The only thing to add at this point would be an ARB/GASPER. 3. Acute on chronic renal insufficiency. PLAN: We will continue current ventilatory support and efforts. There is no real room to reduce the rate. I am not sure that the trach is the best thing at this point. We will also continue to monitor blood pressure and add losartan as our next agent. Prognosis remains very guarded. Critical care 32 minutes. Job ID: [id number]
--- NOTE | 2019-12-04 13:44 | PDOC.NEPPN ---
- Subjective Encounter Date: 12/04/19 Subjective: Still intubated and mechanically ventilated. Developed acute elevation in BP and Cardene infusion was restarted. Afebrile now for more than 36 hours. blood culture from central line grew yeast and was started on antifungal. - Objective Vital Signs & Weight: Vital Signs (12 hours) Pulse Resp BP Pulse Ox 12/04/19 11:12 87 142/87 H 12/04/19 10:00 26 H 12/04/19 08:25 85 162/95 H 12/04/19 08:04 86 162/95 H 12/04/19 08:00 26 H 96 12/04/19 06:00 26 H 12/04/19 04:00 26 H 12/04/19 02:15 90 12/04/19 02:00 26 H Weight Admit Weight 197 lb Weight 218 lb 14.704 oz Most Recent Monitor Data Heart Rate from ECG 87 NIBP 154/95 NIBP BP-Mean 114 Respiration from ECG 26 SpO2 97 I&O: 12/03/19 12/04/19 12/05/19 06:59 06:59 06:59 Intake Total 5170 4136 370 Output Total 4125 5770 830 Balance 1045 -1634 -460 Result Diagrams: 12/04/19 05:15 12/04/19 05:15 Additional Labs: Accuchecks 12/04/19 12/04/19 12/03/19 09:38 05:15 15:43 POC Glucose 170 H 215 H 144 H 12/03/19 11:50 POC Glucose 87 Nephrology ROS - Medication Medications: Active Medications Generic Name Dose Route Start Last Admin Trade Name Freq PRN Reason Stop Dose Admin Acetaminophen 650 mg 11/21/19 05:39 11/21/19 13:23 Tylenol [place] 650 mg Q6H PRN Administration Fever > 101 or Mild Pain Acetaminophen 650 mg 11/24/19 16:43 12/02/19 12:28 Tylenol Elixir PER TUBE 650 mg Q6H PRN Administration Fever > 100.3 Amlodipine Besylate 10 mg 12/04/19 09:00 12/04/19 08:28 Amlodipine 10 Mg Tab PO 10 mg DAILY JOSSY Administration Ascorbic Acid 1,000 mg 11/25/19 09:00 12/04/19 08:27 Vitamin C PO 1,000 mg DAILY JOSSY Administration Cholecalciferol 400 units 11/27/19 09:00 12/04/19 08:24 Vitamin D PER TUBE 400 units DAILY JOSSY Administration Clonidine 0.3 mg 11/23/19 13:00 11/30/19 12:15 Uixbysjh-Cki-6 TD 0.3 mg Q7D JOSSY Administration Dextrose/Water 25 gm 11/21/19 04:06 11/21/19 04:21 Dextrose 50% SLOW IVP 25 gm PRN PRN Administration Hypoglycemia Enoxaparin Sodium 80 mg 11/25/19 21:00 12/03/19 19:41 Lovenox SC 80 mg 2100 JOSSY Administration Fluoxetine HCl 60 mg 11/22/19 09:00 12/04/19 08:24 Prozac PO 60 mg DAILY JOSSY Administration Furosemide 40 mg 12/02/19 09:00 12/04/19 08:29 Furosemide 40 Mg/4 Ml Vial SLOW IVP 40 mg DAILY JOSSY Administration Gabapentin 600 mg 11/21/19 15:00 12/04/19 08:25 Neurontin PO 600 mg TID JOSSY Administration Hydralazine HCl 100 mg 11/23/19 15:00 12/04/19 08:27 Apresoline PO 100 mg TID JOSSY Administration Nicardipine HCl 50 mg/ Sodium 250 mls @ 0 mls/hr 11/24/19 09:45 12/04/19 08:54 Chloride IV 250 mls INF JOSSY Administration Protocol As Directed Oxacillin Sodium 2 gm/ Sodium 100 mls @ 200 mls/hr 11/27/19 09:00 12/04/19 13:01 Chloride IVPB 100 mls Q4HR JOSSY Administration Dexmedetomidine HCl 400 mcg/ 100 mls @ 0 mls/hr 12/01/19 19:00 12/04/19 11:39 Sodium Chloride IVPB 100 mls INF JOSSY Administration Protocol Titrate Insulin Human Lispro 0 units 11/24/19 10:33 12/04/19 05:41 Humalog SC 4 unit .MODERATE SLIDING SC PRN Administration Moderate Correctional Scale Insulin Human NPH 30 unit 11/28/19 09:00 12/04/19 08:33 Humulin N SC 30 unit Q12HR JOSSY Administration Isosorbide Dinitrate 40 mg 12/04/19 09:00 12/04/19 09:07 Isosorbide Dinitrate 20 Mg Tab PO 40 mg TID JOSSY Administration Labetalol HCl 20 mg 12/01/19 19:47 12/03/19 23:46 Labetalol Hcl 100 Mg/20 Ml Vial IVPB 20 mg Q2H PRN Administration SBP > 180 Labetalol HCl 400 mg 12/03/19 09:00 12/04/19 08:25 Labetalol 100 Mg Tab PO 400 mg TID JOSSY Administration Levothyroxine Sodium 100 mcg 11/22/19 06:00 12/04/19 05:03 Synthroid PO 100 mcg 0600 JOSSY Administration Lorazepam 2 mg 12/03/19 13:50 12/04/19 02:45 Lorazepam 2 Mg/Ml Vial SLOW IVP 2 mg Q1H PRN Administration Breakthrough Agitation Methylprednisolone Sodium Succinate 80 mg 11/24/19 21:00 12/04/19 08:29 Solu-Medrol IVP 80 mg Q12HR JOSSY Administration Metolazone 5 mg 12/04/19 08:30 12/04/19 08:24 Metolazone 5 Mg Tab PO 5 mg 0830 JOSSY Administration Olanzapine 10 mg 11/23/19 21:00 12/03/19 19:42 Zyprexa PO 10 mg HS JOSSY Administration Pantoprazole Sodium 40 mg 12/03/19 21:00 12/04/19 08:32 Pantoprazole 40 Mg Vial IVP 40 mg Q12HR JOSSY Administration Propofol 1,000 mg 11/21/19 02:24 12/04/19 11:39 Diprivan IV 12/21/19 02:24 1,000 mg INF PRN Administration TO ACHIEVE GOAL RASS Protocol Sodium Bicarbonate 650 mg 11/30/19 15:00 12/04/19 08:24 Sodium Bicarbonate Tab 325 Mg Tab PO 650 mg TID JOSSY Administration Sodium Chloride 10 ml 11/25/19 09:00 12/03/19 19:44 Flush - Normal Saline IVF 10 ml Q12HR JOSSY Administration Spironolactone 100 mg 12/02/19 09:00 12/04/19 08:24 Spironolactone 100 Mg Tab PO 100 mg DAILY JOSSY Administration - Exam General - other findings: sedated ENT: normocephalic atraumatic ENT - other findings: Et tube in place Respiratory - other findings: Ventilator transmitted sound Cardiovascular: RRR Gastrointestinal: soft, non-distended, diminished bowl sounds Gastrointestinal - other findings: Quevedo catheter in place and draining urine Extremities - other findings: edema of the extremities noted Neurological - other findings: sedated Nephrology Results - Labs Result Diagrams: 12/04/19 05:15 12/04/19 05:15 Lab results: WBC 12.5 thou/uL (4.8-10.8) H 12/04/19 05:15 Hgb 9.2 g/dL (12.0-16.0) L 12/04/19 05:15 Hct 28.0 % (36.0-47.0) L 12/04/19 05:15 MCV 97.3 fL (78.0-98.0) 12/04/19 05:15 Plt Count 312 thou/uL (130-400) 12/04/19 05:15 Neutrophils % 87.4 % (42.0-75.0) H 11/21/19 01:12 Band Neuts % (Manual) 2 % (5-11) L 12/04/19 05:15 ABG pH 7.40 (7.35-7.45) 12/01/19 07:15 ABG pCO2 29.0 mmHg (35.0-45.0) L 12/01/19 07:15 ABG pO2 72.4 mmHg (> 80.0) 12/01/19 07:15 Sodium 148 mmol/L (136-145) H 12/04/19 05:15 Potassium 3.8 mmol/L (3.5-5.1) 12/04/19 05:15 Chloride 113 mmol/L (98-107) H 12/04/19 05:15 Carbon Dioxide 20 mmol/L (23-31) L 12/04/19 05:15 BUN 95 mg/dL (9.8-20.1) H 12/04/19 05:15 Creatinine 2.00 mg/dL (0.6-1.1) H 12/04/19 05:15 Glucose 216 mg/dL (80-115) H 12/04/19 05:15 Lactic Acid 1.9 mmol/L (0.5-2.2) 11/21/19 01:12 Calcium 9.1 mg/dL (7.8-10.44) 12/04/19 05:15 Total Bilirubin 0.2 mg/dL (0.2-1.2) 12/04/19 05:15 AST 10 U/L (5-34) 12/04/19 05:15 ALT 9 U/L (8-55) 12/04/19 05:15 Alkaline Phosphatase 94 U/L (40-110) 12/04/19 05:15 Creatine Kinase 191 U/L (29-168) H 11/21/19 02:08 Troponin I 0.013 ng/mL (< 0.028) 11/21/19 01:12 C-Reactive Protein 10.70 mg/dL (= or < 0.5) H 12/03/19 13:04 B-Natriuretic Peptide 56.8 pg/mL (0-100) 11/21/19 01:12 Serum Total Protein 6.6 g/dL (6.0-8.3) 12/04/19 05:15 Albumin 3.1 g/dL (3.4-4.8) L 12/04/19 05:15 Urine Ketones Negative mg/dL (Negative) 12/02/19 14:20 Urine Blood Negative (Negative) 12/02/19 14:20 Urine Nitrite Negative (Negative) 12/02/19 14:20 Ur Leukocyte Esterase Negative Sarahy/uL (Negative) 12/02/19 14:20 Urine RBC 0-3 HPF (0-3) 12/02/19 14:20 Urine WBC 0-3 HPF (0-3) 12/02/19 14:20 Ur Squamous Epith Cells 0-3 HPF (0-3) 12/02/19 14:20 Urine Bacteria None Seen HPF (None Seen) 12/02/19 14:20 Nephrology AP PN - Plan ASSESSMENT: Acute kidney injury due to hemodynamic factors, markedly improved. Chronic kidney disease stage 3. Creat back to baseline Hypernatremia: Due to inadequate free water intake and lasix diuretic. Improving Fluid overload. Hypoalbuminemia Metabolic acidosis. Initially due to sepsis but currently due mostly to hyperchloremic acidosis. Hypertension. Cardene infusion was restarted yesterday due to elevated BP Primary hyperaldosteronism, on spironolactone. Septic shock, resolved. Staphylococcus bacteremia. Acute respiratory failure on the vent COVID pneumonia. Multifocal pneumonia. Right-sided pneumothorax. Acute anemia: HB is down from 12 on 11/28/2019 to 8.8 today. No overt bleeding. Patient is on anticoagulation with lovenox. Possible fungaemia given positive blood culture with yeast PLAN: Increase isosorbide to 40 tid. Continue amlodipine, clonidine, labetalol, hydralazine, isosorbide. Wean off cardene infusion as tolerated. [place] restart losartan tomorrow if renal function remained stable. Continue diuretic therapy with metolazone and lasix. Continue free water 200 cc every 4hrs via NG tube Continue spironolactone to 100 mg daily and monitor serum potassium Continue oral sodium bicarbonate. Antimicrobial as per ID.
--- NOTE | 2019-12-04 15:38 | PDOC.HOSPP ---
- Subjective Encounter Date: 12/04/19 Encounter Time: 15:20 Subjective: f/u for COVID-19 PNA with resp failure on mech ventilation. Off Cardene gtt after BP lability. Remains on Bi-level mech ventilation with 65% FIO2. - Objective Vital Signs & Weight: Vital Signs (12 hours) Pulse Resp BP Pulse Ox 12/04/19 14:55 86 154/98 H 12/04/19 14:00 26 H 12/04/19 13:49 88 145/91 H 12/04/19 12:00 26 H 12/04/19 11:12 87 142/87 H 12/04/19 10:00 26 H 12/04/19 08:25 85 162/95 H 12/04/19 08:04 86 162/95 H 12/04/19 08:00 26 H 96 12/04/19 06:00 26 H 12/04/19 04:00 26 H Weight Admit Weight 197 lb Weight 218 lb 14.704 oz Most Recent Monitor Data Heart Rate from ECG 87 NIBP 154/98 NIBP BP-Mean 116 Respiration from ECG 26 SpO2 97 I&O: 12/03/19 12/04/19 12/05/19 06:59 06:59 06:59 Intake Total 5170 4136 670 Output Total 4126 0161 9230 Balance 0781 -5791 -6106 Result Diagrams: 12/04/19 05:15 12/04/19 05:15 Additional Labs: Accuchecks 12/04/19 12/04/19 12/03/19 09:38 05:15 15:43 POC Glucose 170 H 215 H 144 H 12/03/19 11:50 POC Glucose 87 Microbiology 12/03/19 11:53 Stool Stool Occult Blood (MICHELLE) - Final 12/02/19 14:20 Venous blood - Left Hand Blood Culture - Preliminary Specimen has been received and culture in progress. No Growth to date. 12/02/19 14:20 Central Line - Left Subclavian Vein Blood Culture - Preliminary Yeast species Laboratory Tests 11/21/19 11/21/19 11/25/19 01:12 01:59 03:00 WBC Hgb D-Dimer 11.15 H Sodium Creatinine Ferritin C-Reactive Protein B-Natriuretic Peptide 56.8 Procalcitonin SARS-CoV-2 Rap RNA(RT-PCR) DETECTED A* 11/26/19 11/27/19 11/30/19 03:45 04:15 Unknown WBC 15.7 H Hgb 10.7 L D-Dimer 13.62 H 5.52 H Sodium Creatinine Ferritin C-Reactive Protein B-Natriuretic Peptide Procalcitonin SARS-CoV-2 Rap RNA(RT-PCR) 12/01/19 12/02/19 12/02/19 03:07 04:30 04:30 WBC 16.5 H 12.5 H Hgb 10.5 L 9.8 L D-Dimer Sodium 145 Creatinine 1.87 H Ferritin C-Reactive Protein B-Natriuretic Peptide Procalcitonin SARS-CoV-2 Rap RNA(RT-PCR) 12/03/19 12/03/19 12/03/19 04:30 04:30 08:17 WBC 13.1 H Hgb 8.8 L D-Dimer Sodium 150 H Creatinine 2.01 H Ferritin 607.18 H C-Reactive Protein B-Natriuretic Peptide Procalcitonin SARS-CoV-2 Rap RNA(RT-PCR) 12/03/19 12/03/19 12/03/19 13:04 13:04 13:04 WBC Hgb D-Dimer 2.78 H Sodium Creatinine Ferritin C-Reactive Protein 10.70 H B-Natriuretic Peptide Procalcitonin 0.88 SARS-CoV-2 Rap RNA(RT-PCR) Radiology Reviewed by me: Yes (PCXR - bilat infiltrates, ETT in place, R thoracostomy tube in place) EKG Reviewed by me: Yes (Tele - SR) Hospitalist ROS - Medication Medications: Active Medications Generic Name Dose Route Start Last Admin Trade Name Freq PRN Reason Stop Dose Admin Acetaminophen 650 mg 11/21/19 05:39 11/21/19 13:23 Tylenol [place] 650 mg Q6H PRN Administration Fever > 101 or Mild Pain Acetaminophen 650 mg 11/24/19 16:43 12/02/19 12:28 Tylenol Elixir PER TUBE 650 mg Q6H PRN Administration Fever > 100.3 Amlodipine Besylate 10 mg 12/04/19 09:00 12/04/19 08:28 Amlodipine 10 Mg Tab PO 10 mg DAILY JOSSY Administration Ascorbic Acid 1,000 mg 11/25/19 09:00 12/04/19 08:27 Vitamin C PO 1,000 mg DAILY JOSSY Administration Cholecalciferol 400 units 11/27/19 09:00 12/04/19 08:24 Vitamin D PER TUBE 400 units DAILY JOSSY Administration Clonidine 0.3 mg 11/23/19 13:00 11/30/19 12:15 Gdugpogp-[id number]-5 TD 0.3 mg Q7D JOSSY Administration Dextrose/Water 25 gm 11/21/19 04:06 11/21/19 04:21 Dextrose 50% SLOW IVP 25 gm PRN PRN Administration Hypoglycemia Enoxaparin Sodium 80 mg 11/25/19 21:00 12/03/19 19:41 Lovenox SC 80 mg 2100 JOSSY Administration Fluoxetine HCl 60 mg 11/22/19 09:00 12/04/19 08:24 Prozac PO 60 mg DAILY JOSSY Administration Furosemide 40 mg 12/02/19 09:00 12/04/19 08:29 Furosemide 40 Mg/4 Ml Vial SLOW IVP 40 mg DAILY JOSSY Administration Gabapentin 600 mg 11/21/19 15:00 12/04/19 15:12 Neurontin PO 600 mg TID JOSSY Administration Hydralazine HCl 100 mg 11/23/19 15:00 12/04/19 15:12 Apresoline PO 100 mg TID JOSSY Administration Nicardipine HCl 50 mg/ Sodium 250 mls @ 0 mls/hr 11/24/19 09:45 12/04/19 08:5 4 Chloride IV 250 mls INF JOSSY Administration Protocol As Directed Oxacillin Sodium 2 gm/ Sodium 100 mls @ 200 mls/hr 11/27/19 09:00 12/04/19 13:01 Chloride IVPB 100 mls Q4HR JOSSY Administration Dexmedetomidine HCl 400 mcg/ 100 mls @ 0 mls/hr 12/01/19 19:00 12/04/19 11:39 Sodium Chloride IVPB 100 mls INF JOSSY Administration Protocol Titrate Insulin Human Lispro 0 units 11/24/19 10:33 12/04/19 05:41 Humalog SC 4 unit .MODERATE SLIDING SC PRN Administration Moderate Correctional Scale Insulin Human NPH 30 unit 11/28/19 09:00 12/04/19 08:33 Humulin N SC 30 unit Q12HR JOSSY Administration Isosorbide Dinitrate 40 mg 12/04/19 09:00 12/04/19 15:11 Isosorbide Dinitrate 20 Mg Tab PO 40 mg TID JOSSY Administration Labetalol HCl 20 mg 12/01/19 19:47 12/03/19 23:46 Labetalol Hcl 100 Mg/20 Ml Vial IVPB 20 mg Q2H PRN Administration SBP > 180 Labetalol HCl 400 mg 12/03/19 09:00 12/04/19 15:11 Labetalol 100 Mg Tab PO 400 mg TID JOSSY Administration Levothyroxine Sodium 100 mcg 11/22/19 06:00 12/04/19 05:03 Synthroid PO 100 mcg 0600 JOSSY Administration Lorazepam 2 mg 12/03/19 13:50 12/04/19 02:45 Lorazepam 2 Mg/Ml Vial SLOW IVP 2 mg Q1H PRN Administration Breakthrough Agitation Methylprednisolone Sodium Succinate 80 mg 11/24/19 21:00 12/04/19 08:29 Solu-Medrol IVP 80 mg Q12HR JSOSY Administration Metolazone 5 mg 12/04/19 08:30 12/04/19 08:24 Metolazone 5 Mg Tab PO 5 mg 0830 JOSSY Administration Olanzapine 10 mg 11/23/19 21:00 12/03/19 19:42 Zyprexa PO 10 mg HS JOSSY Administration Pantoprazole Sodium 40 mg 12/03/19 21:00 12/04/19 08:32 Pantoprazole 40 Mg Vial IVP 40 mg Q12HR JOSSY Administration Propofol 1,000 mg 11/21/19 02:24 12/04/19 11:39 Diprivan IV 12/21/19 02:24 1,000 mg INF PRN Administration TO ACHIEVE GOAL RASS Protocol Sodium Bicarbonate 650 mg 11/30/19 15:00 12/04/19 15:10 Sodium Bicarbonate Tab 325 Mg Tab PO 650 mg TID JOSSY Administration Sodium Chloride 10 ml 11/25/19 09:00 12/03/19 19:44 Flush - Normal Saline IVF 10 ml Q12HR JOSSY Administration Spironolactone 100 mg 12/02/19 09:00 12/04/19 08:24 Spironolactone 100 Mg Tab PO 100 mg DAILY JOSSY Administration - Exam General - other findings: sedate on mech ventilation Eye: PERRL, anicteric sclera ENT: normocephalic atraumatic, no oropharyngeal lesions ENT - other findings: ETT in place Neck: supple, symmetric, no JVD, no thyromegaly, no lymphadenopathy Heart: RRR, no gallops, no rubs, normal peripheral pulses Heart - other findings: S1, S2 Respiratory: no rales, no ronchi, normal chest expansion Respiratory - other findings: diminished in bilat fountain Gastrointestinal: soft, non-tender, non-distended, normal bowel sounds, no palpable masses Extremities: no cyanosis, no clubbing, 1+ LE edema Skin: normal turgor, no lesions Musculoskeletal: generalized weakness Psychiatric: somnolent Psychiatric - other findings: sedate on mech ventilation Hosp A/P (1) Pneumonia due to COVID-19 virus Code(s): U07.1 - COVID-19; J12.89 - OTHER VIRAL PNEUMONIA Status: Acute Plan: Continue Solumedrol/mech ventilation/Lovenox (2) Acute respiratory failure with hypoxia Code(s): J96.01 - ACUTE RESPIRATORY FAILURE WITH HYPOXIA Status: Acute Plan: Continue mech ventilation with Bi-level (3) Acute worsening of stage 3 chronic kidney disease Code(s): N18.3 - CHRONIC KIDNEY DISEASE, STAGE 3 (MODERATE) Status: Acute Plan: Improved, free-H2O administration, avoid nephrotoxic meds and limit contrast exposure (4) Hyperaldosteronism Code(s): E26.9 - HYPERALDOSTERONISM, UNSPECIFIED Status: Chronic (5) Hypernatremia Code(s): E87.0 - HYPEROSMOLALITY AND HYPERNATREMIA Status: Acute Plan: Improved, continue free-H2O replacement, serial Na+ monitoring (6) DM type 2 (diabetes mellitus, type 2) Status: Chronic Qualifiers: Diabetes mellitus half-way insulin use: with half-way use (7) Hypertensive urgency Code(s): I16.0 - HYPERTENSIVE URGENCY Status: Acute Plan: Cardene infusion as needed, continue current BP regimen, overall trend improved - Plan social services manager, respiratory therapy, DVT proph w/SCDs Continue critical care support Mech ventilation with Bi-level Continue Solumedrol Continue Lovenox Palliative care support AM lab: CMP, CBC, ABG
[2019-12-04] MEDS: Enoxaparin Sodium 80 MG/0.8 ML SYRINGE SC SCH (21:10)
[2019-12-04] MEDS: OLANZapine 5 MG TAB PO SCH (21:14)
[2019-12-04] MEDS ORDERED: Furosemide 40 MG/4 ML VIAL SLOW IVP SCH (21:15)
[2019-12-05] MEDS: Propofol 1,000 MG/100 ML VIAL IV PRN (00:08)
[2019-12-05] MEDS: Oxacillin 2 GM in Sodium Chloride 0.9% 100 ML IVPB SCH ×6 (00:14→20:14)
[2019-12-05 05:00] LABS: Band 6 % (5-11); Hemoglobin 9.5 g/dL (12.0-16.0); Lymphocytes 5 % (21-51); MDiff Complete? YES; Mean Corpuscular HGB CONC 32.3 g/dL (32.0-36.0); Mean Corpuscular Hemoglobin 31.1 pg (27.0-31.0); Mean Corpuscular Volume 96.2 fL (78.0-98.0); Mean Platelet Volume 9.3 fL (7.4-10.4); Monocytes 4 % (0-10); Neutrophil 85 % (42-75); Platelet Count 333 thou/uL (130-400); RBC Distribution Width 14.7 % (11.5-14.5); Red Blood Cell (RBC) Count 3.04 mill/uL (4.20-5.40); White Blood Cell (WBC) Count 13.1 thou/uL (4.8-10.8)
[2019-12-05 05:09] LABS: ALT (SGPT) 9 U/L (8-55); AST (SGOT) 10 U/L (5-34); Albumin 3.3 g/dL (3.4-4.8); Alkaline Phosphatase 92 U/L (40-110); Anion Gap 19 mmol/L (10-20); BUN (Urea Nitrogen) 94 mg/dL (9.8-20.1); Bilirubin, Total 0.3 mg/dL (0.2-1.2); Calc. Creatinine Clearance 44 mL/min (70-130); Calcium 9.7 mg/dL (7.8-10.44); Carbon Dioxide 23 mmol/L (23-31); Chloride 111 mmol/L (98-107); Estimated GFR-MDRD 32; Globulin 3.7 g/dL (2.4-3.5); Glucose 185 mg/dL (80-115); Potassium 3.5 mmol/L (3.5-5.1); Sodium 149 mmol/L (136-145)
[2019-12-05] MEDS: Levothyroxine Sodium 100 MCG TAB PO SCH (05:25)
[2019-12-05] MEDS: HumaLOG 300 UNITS/3 ML VIAL SC PRN ×4 (05:25→22:21)
--- NOTE | 2019-12-05 07:59 | RAD ---
EXAM: CHEST ONE VIEW HISTORY: Pneumonia. Follow-up evaluation. COMPARISON: 12/04/2019 FINDINGS: Endotracheal tube, nasogastric tube, left-sided vascular catheter, and 2 right-sided thoracostomy tub es remain in place. Previously seen right-sided pneumothorax has improved, and there is only minimal pneumothorax present at the right lung apex and medial right lung base on the current exam. P arenchymal lung changes are again seen at each lung base. Perihilar interstitial densities are also again seen but do appear mildly improved on the right. No other interval change. IMPRESSION: 1. Right-sided thoracostomy tubes remain in place. The right-sided pneumothorax does appear smaller i n size with only minimal pneumothorax seen on today's exam. 2. Increased interstitial opacities bilaterally which could be related to bilateral infectious proces s. Continued follow-up to resolution is recommended. Perihilar interstitial densities do appear improved compared to prior exam.
[2019-12-05] MEDS: FLUoxetine HCl 20 MG CAP PO SCH (08:50)
[2019-12-05] MEDS: Ascorbic Acid 500 mg Chewable Tablet PO SCH (08:51)
[2019-12-05] MEDS: hydrALAZINE 25 MG TAB PO SCH ×3 (08:51→20:10)
[2019-12-05] MEDS: Amlodipine 10 MG TAB PO SCH (08:52)
[2019-12-05] MEDS: Metolazone 5 MG TAB PO SCH (08:52)
[2019-12-05] MEDS: methylPREDNISolone Sod Succ/PF 125 MG/2 ML VIAL IVP SCH ×2 (08:52→20:12)
[2019-12-05] MEDS: Gabapentin 300 MG CAP PO SCH ×3 (08:52→20:10)
[2019-12-05] MEDS: Cholecalciferol (Vitamin D3) 400 UNITS TAB PER TUBE SCH (08:53)
[2019-12-05] MEDS: Spironolactone 100 MG TAB PO SCH (08:54)
[2019-12-05] MEDS: Pantoprazole 40 MG VIAL IVP SCH ×2 (08:54→20:15)
[2019-12-05] MEDS: Labetalol 100 MG TAB PO SCH ×3 (08:58→20:11)
[2019-12-05] MEDS: Sodium Bicarbonate Tab 325 MG TAB PO SCH ×3 (08:58→20:14)
[2019-12-05] MEDS ORDERED: Metolazone 5 MG TAB PO SCH (09:00)
[2019-12-05] MEDS: Isosorbide Dinitrate 20 MG TAB PO SCH ×3 (09:03→20:11)
[2019-12-05] MEDS: NPH, Human Insulin Isophane 300 UNIT/3 ML VIAL SC SCH ×2 (09:22→20:17)
[2019-12-05] MEDS: Furosemide 40 MG/4 ML VIAL SLOW IVP SCH (09:24)
[2019-12-05] MEDS: Losartan 25 MG TAB PO SCH (09:37)
--- NOTE | 2019-12-05 11:08 | PDOC.NEPPN ---
- Subjective Encounter Date: 12/05/19 Subjective: Still intubated. Opening eye with stimulation with weaning of sedatives. - Objective Vital Signs & Weight: Vital Signs (12 hours) Temp Pulse Resp BP Pulse Ox 12/05/19 10:34 82 102/67 12/05/19 08:58 81 182/102 H 12/05/19 08:52 81 182/102 H 12/05/19 08:51 81 182/102 H 12/05/19 07:48 81 182/102 H 12/05/19 06:00 30 H 12/05/19 04:00 97.7 F 26 H 96 12/05/19 02:10 84 12/05/19 02:00 27 H 12/05/19 00:00 97.8 F 31 H 12/04/19 23:25 83 168/97 H 12/04/19 23:15 83 168/97 H Weight Admit Weight 197 lb Weight 207 lb 0.225 oz Most Recent Monitor Data Heart Rate from ECG 74 NIBP 147/105 NIBP BP-Mean 119 Respiration from ECG 26 SpO2 96 I&O: 12/04/19 12/05/19 12/06/19 06:59 06:59 06:59 Intake Total 4136 3268.7 590 Output Total 5770 5480 570 Balance -5504 -2211.3 20 Result Diagrams: 12/05/19 04:15 12/05/19 04:15 Additional Labs: Accuchecks 12/05/19 12/04/19 10:24 21:38 POC Glucose 159 H 209 H Nephrology ROS - Medication Medications: Active Medications Generic Name Dose Route Start Last Admin Trade Name Tedq PRN Reason Stop Dose Admin Acetaminophen 650 mg 11/21/19 05:39 11/21/19 13:23 Tylenol [place] 650 mg Q6H PRN Administration Fever > 101 or Mild Pain Acetaminophen 650 mg 11/24/19 16:43 12/02/19 12:28 Tylenol Elixir PER TUBE 650 mg Q6H PRN Administration Fever > 100.3 Ascorbic Acid 1,000 mg 11/25/19 09:00 12/05/19 08:51 Vitamin C PO 1,000 mg DAILY JOSSY Administration Cholecalciferol 400 units 11/27/19 09:00 12/05/19 08:53 Vitamin D PER TUBE 400 units DAILY JOSSY Administration Clonidine 0.3 mg 11/23/19 13:00 11/30/19 12:15 Wqrlzqki-Poy-9 TD 0.3 mg Q7D JOSSY Administration Dextrose/Water 25 gm 11/21/19 04:06 11/21/19 04:21 Dextrose 50% SLOW IVP 25 gm PRN PRN Administration Hypoglycemia Enoxaparin Sodium 80 mg 11/25/19 21:00 12/04/19 21:10 Lovenox SC 80 mg 2100 JOSSY Administration Fluoxetine HCl 60 mg 11/22/19 09:00 12/05/19 08:50 Prozac PO 60 mg DAILY JOSSY Administration Furosemide 40 mg 12/02/19 09:00 12/05/19 09:24 Furosemide 40 Mg/4 Ml Vial SLOW IVP 40 mg DAILY JOSSY Administration Gabapentin 600 mg 11/21/19 15:00 12/05/19 08:52 Neurontin PO 600 mg TID JOSSY Administration Hydralazine HCl 100 mg 11/23/19 15:00 12/05/19 08:51 Apresoline PO 100 mg TID JOSSY Administration Nicardipine HCl 50 mg/ Sodium 250 mls @ 0 mls/hr 11/24/19 09:45 12/04/19 08:54 Chloride IV 250 mls INF JOSSY Administration Protocol As Directed Oxacillin Sodium 2 gm/ Sodium 100 mls @ 200 mls/hr 11/27/19 09:00 12/05/19 08:53 Chloride IVPB 100 mls Q4HR JOSSY Administration Dexmedetomidine HCl 400 mcg/ 100 mls @ 0 mls/hr 12/01/19 19:00 12/05/19 09:36 Sodium Chloride IVPB 100 mls INF JOSSY Administration Protocol Titrate Insulin Human Lispro 0 units 11/24/19 10:33 12/05/19 10:20 Humalog SC 2 unit .MODERATE SLIDING SC PRN Administration Moderate Correctional Scale Insulin Human NPH 30 unit 11/28/19 09:00 12/05/19 09:22 Humulin N SC 30 unit Q12HR JOSSY Administration Isosorbide Dinitrate 40 mg 12/04/19 09:00 12/05/19 09:03 Isosorbide Dinitrate 20 Mg Tab PO 40 mg TID JOSSY Administration Labetalol HCl 20 mg 12/01/19 19:47 12/03/19 23:46 Labetalol Hcl 100 Mg/20 Ml Vial IVPB 20 mg Q2H PRN Administration SBP > 180 Labetalol HCl 400 mg 12/03/19 09:00 12/05/19 08:58 Labetalol 100 Mg Tab PO 400 mg TID JOSSY Administration Levothyroxine Sodium 100 mcg 11/22/19 06:00 12/05/19 05:25 Synthroid PO 100 mcg 0600 JOSSY Administration Lorazepam 2 mg 12/03/19 13:50 12/04/19 02:45 Lorazepam 2 Mg/Ml Vial SLOW IVP 2 mg Q1H PRN Administration Breakthrough Agitation Losartan Potassium 100 mg 12/05/19 09:00 12/05/19 09:37 Losartan 25 Mg Tab PO 100 mg DAILY JOSSY Administration Methylprednisolone Sodium Succinate 80 mg 11/24/19 21:00 12/05/19 08:52 Solu-Medrol IVP 80 mg Q12HR JOSSY Administration Metolazone 5 mg 12/04/19 08:30 12/05/19 08:52 Metolazone 5 Mg Tab PO 5 mg 0830 JOSSY Administration Olanzapine 10 mg 11/23/19 21:00 12/04/19 21:14 Zyprexa PO 10 mg HS JOSSY Administration Pantoprazole Sodium 40 mg 12/03/19 21:00 12/05/19 08:54 Pantoprazole 40 Mg Vial IVP 40 mg Q12HR JOSSY Administration Propofol 1,000 mg 11/21/19 02:24 12/05/19 00:08 Diprivan IV 12/21/19 02:24 1,000 mg INF PRN Administration TO ACHIEVE GOAL RASS Protocol Sodium Bicarbonate 650 mg 11/30/19 15:00 12/05/19 08:58 Sodium Bicarbonate Tab 325 Mg Tab PO 650 mg TID JOSSY Administration Sodium Chloride 10 ml 11/25/19 09:00 12/05/19 09:11 Flush - Normal Saline IVF 10 ml Q12HR JOSSY Administration Spironolactone 100 mg 12/02/19 09:00 12/05/19 08:54 Spironolactone 100 Mg Tab PO 100 mg DAILY JOSSY Administration - Exam General - other findings: Sedated ENT: normocephalic atraumatic ENT - other findings: Et tube in place Respiratory - other findings: ventilated transmitted sound noted Cardiovascular: RRR Gastrointestinal: soft, non-distended, diminished bowl sounds Extremities - other findings: Edema of the upper extremities noted Neurological - other findings: Sedated Nephrology Results - Labs Result Diagrams: 12/05/19 04:15 12/05/19 04:15 Lab results: WBC 13.1 thou/uL (4.8-10.8) H 12/05/19 04:15 Hgb 9.5 g/dL (12.0-16.0) L 12/05/19 04:15 Hct 29.3 % (36.0-47.0) L 12/05/19 04:15 MCV 96.2 fL (78.0-98.0) 12/05/19 04:15 Plt Count 333 thou/uL (130-400) 12/05/19 04:15 Neutrophils % 87.4 % (42.0-75.0) H 11/21/19 01:12 Band Neuts % (Manual) 6 % (5-11) 12/05/19 04:15 ABG pH 7.40 (7.35-7.45) 12/01/19 07:15 ABG pCO2 29.0 mmHg (35.0-45.0) L 12/01/19 07:15 ABG pO2 72.4 mmHg (> 80.0) 12/01/19 07:15 Sodium 149 mmol/L (136-145) H 12/05/19 04:15 Potassium 3.5 mmol/L (3.5-5.1) 12/05/19 04:15 Chloride 111 mmol/L (98-107) H 12/05/19 04:15 Carbon Dioxide 23 mmol/L (23-31) 12/05/19 04:15 BUN 94 mg/dL (9.8-20.1) H 12/05/19 04:15 Creatinine 1.90 mg/dL (0.6-1.1) H 12/05/19 04:15 Glucose 185 mg/dL (80-115) H 12/05/19 04:15 Lactic Acid 1.9 mmol/L (0.5-2.2) 11/21/19 01:12 Calcium 9.7 mg/dL (7.8-10.44) 12/05/19 04:15 Total Bilirubin 0.3 mg/dL (0.2-1.2) 12/05/19 04:15 AST 10 U/L (5-34) 12/05/19 04:15 ALT 9 U/L (8-55) 12/05/19 04:15 Alkaline Phosphatase 92 U/L (40-110) 12/05/19 04:15 Creatine Kinase 191 U/L (29-168) H 11/21/19 02:08 Troponin I 0.013 ng/mL (< 0.028) 11/21/19 01:12 C-Reactive Protein 10.70 mg/dL (= or < 0.5) H 12/03/19 13:04 B-Natriuretic Peptide 56.8 pg/mL (0-100) 11/21/19 01:12 Serum Total Protein 7.0 g/dL (6.0-8.3) 12/05/19 04:15 Albumin 3.3 g/dL (3.4-4.8) L 12/05/19 04:15 Urine Ketones Negative mg/dL (Negative) 12/02/19 14:20 Urine Blood Negative (Negative) 12/02/19 14:20 Urine Nitrite Negative (Negative) 12/02/19 14:20 Ur Leukocyte Esterase Negative Sarahy/uL (Negative) 12/02/19 14:20 Urine RBC 0-3 HPF (0-3) 12/02/19 14:20 Urine WBC 0-3 HPF (0-3) 12/02/19 14:20 Ur Squamous Epith Cells 0-3 HPF (0-3) 12/02/19 14:20 Urine Bacteria None Seen HPF (None Seen) 12/02/19 14:20 Nephrology AP PN - Plan ASSESSMENT: Acute kidney injury due to hemodynamic factors, markedly improved. Creat is back to recent baseline Chronic kidney disease stage 3. Creat back to baseline Hypernatremia: Due to inadequate free water intake and lasix diuretic. Improving Fluid overload. Hypoalbuminemia Metabolic acidosis. Initially due to sepsis but currently due mostly to hyperchloremic acidosis. Hypertension. Cardene infusion was restarted yesterday due to elevated BP Primary hyperaldosteronism, on spironolactone. Septic shock, resolved. Staphylococcus bacteremia. Acute respiratory failure on the vent COVID pneumonia. Multifocal pneumonia. Right-sided pneumothorax. Acute anemia: Drop in Hb due to demodilution. Improving with diuretics. Acute illness and GI bleeding cannot be ruled out. Possible fungaemia given positive blood culture with yeast PLAN: Start losartan. Continue isosorbide amlodipine, clonidine, labetalol, hydralazine, isosorbide. Wean off cardene infusion as tolerated. Change amlodipine to PM due BP dips after morning medications. Increase free water flushes Continue diuretic therapy with metolazone and lasix. Continue spironolactone to 100 mg daily and monitor serum potassium Continue oral sodium bicarbonate. Antimicrobial as per ID. Monitor renal function with commencement of losartan
--- NOTE | 2019-12-05 16:37 | PRG ---
DATE OF SERVICE: 12/05/2019 SUBJECTIVE: Ronda Mosqueda remains mechanically ventilated. OBJECTIVE: VITAL SIGNS: Respiratory rates in the 20s, FiO2 of 60, blood pressure 103/64. LUNGS: Unchanged. HEART: Unchanged. ABDOMEN: Unchanged. LABORATORY DATA: White count 13.1, hemoglobin 9.5, platelets 333. Sodium 149, potassium 3.5, chloride 111, bicarb 23, BUN 94, creatinine 1.9, glucose 209. IMPRESSION: 1. COVID pneumonia. 2. Qnnau-fz-dyuqseb kidney disease. 3. Prolonged intubation. At some point in time, probably late this week or early next week, she needs a tracheostomy. Quickly, her gas exchange improved a little bit. Intakes and outputs, negative 2211. Microbiology has been reviewed, and it is noted that she had Lana out of the subclavian line, but negative blood culture at the same time. This argues that this is line colonization. She will continue current critical care support. Critical care time 30 min. Job ID: [id number] CARMELA
--- NOTE | 2019-12-05 16:56 | PDOC.HOSPP ---
- Subjective Encounter Date: 12/05/19 Encounter Time: 16:40 Subjective: f/u for COVID-19 PNA with resp failure on mech ventilation with BiLevel 60% FIO2. Remains on Oxacillin/Fluconazole/Solumedrol. - Objective Vital Signs & Weight: Vital Signs (12 hours) Temp Pulse Resp BP Pulse Ox 12/05/19 15:51 26 H 12/05/19 14:46 86 143/95 H 12/05/19 14:38 86 143/95 H 12/05/19 14:00 26 H 12/05/19 13:42 82 141/88 H 12/05/19 12:00 98.2 F 26 H 12/05/19 10:34 82 102/67 12/05/19 10:00 30 H 12/05/19 08:58 81 182/102 H 12/05/19 08:52 81 182/102 H 12/05/19 08:51 81 182/102 H 12/05/19 08:00 26 H 94 L 12/05/19 07:48 81 182/102 H 12/05/19 07:00 97.4 F L 12/05/19 06:00 30 H Weight Admit Weight 197 lb Weight 207 lb 0.225 oz Most Recent Monitor Data Heart Rate from ECG 90 NIBP 114/79 NIBP BP-Mean 90 Respiration from ECG 29 SpO2 90 I&O: 12/04/19 12/05/19 12/06/19 06:59 06:59 06:59 Intake Total 4136 3268.7 1090 Output Total 5770 5480 1905 [facility] -1634 -2211.3 -815 Result Diagrams: 12/05/19 04:15 12/05/19 04:15 Additional Labs: Accuchecks 12/05/19 12/04/19 12/04/19 10:24 21:38 17:24 POC Glucose 159 H 209 H 254 H 12/03/19 12/03/19 12/01/19 20:13 04:47 16:11 POC Glucose 156 H 125 H 142 H 12/01/19 12/01/19 11:07 03:21 POC Glucose 162 H 120 H Microbiology 12/03/19 11:53 Stool Stool Occult Blood (MICHELLE) - Final 12/02/19 14:20 Venous blood - Left Hand Blood Culture - Preliminary Specimen has been received and culture in progress. No Growth to date. 12/02/19 14:20 Central Line - Left Subclavian Vein Blood Culture - Preliminary Yeast species Laboratory Tests 11/21/19 11/21/19 11/25/19 01:12 01:59 03:00 WBC Hgb D-Dimer 11.15 H Sodium Creatinine Ferritin C-Reactive Protein B-Natriuretic Peptide 56.8 Procalcitonin SARS-CoV-2 Rap RNA(RT-PCR) DETECTED A* 11/26/19 11/27/19 11/30/19 03:45 04:15 Unknown WBC 15.7 H Hgb 10.7 L D-Dimer 13.62 H 5.52 H Sodium Creatinine Ferritin C-Reactive Protein B-Natriuretic Peptide Procalcitonin SARS-CoV-2 Rap RNA(RT-PCR) 12/01/19 12/02/19 12/02/19 03:07 04:30 04:30 WBC 16.5 H 12.5 H Hgb 10.5 L 9.8 L D-Dimer Sodium 145 Creatinine 1.87 H Ferritin C-Reactive Protein B-Natriuretic Peptide Procalcitonin SARS-CoV-2 Rap RNA(RT-PCR) 12/03/19 12/03/19 12/03/19 04:30 04:30 08:17 WBC 13.1 H Hgb 8.8 L D-Dimer Sodium 150 H Creatinine 2.01 H Ferritin 607.18 H C-Reactive Protein B-Natriuretic Peptide Procalcitonin SARS-CoV-2 Rap RNA(RT-PCR) 12/03/19 12/03/19 12/03/19 13:04 13:04 13:04 WBC Hgb D-Dimer 2.78 H Sodium Creatinine Ferritin C-Reactive Protein 10.70 H B-Natriuretic Peptide Procalcitonin 0.88 SARS-CoV-2 Rap RNA(RT-PCR) 12/04/19 12/04/19 05:15 05:15 WBC 12.5 H Hgb 9.2 L D-Dimer Sodium Creatinine 2.00 H Ferritin C-Reactive Protein B-Natriuretic Peptide Procalcitonin SARS-CoV-2 Rap RNA(RT-PCR) Radiology Reviewed by me: Yes (PCXR - bilat infiltrates decreased, lines/tubes in place) EKG Reviewed by me: Yes (Tele - SR) Hospitalist ROS - Medication Medications: Active Medications Generic Name Dose Route Start Last Admin Trade Name Freq PRN Reason Stop Dose Admin Acetaminophen 650 mg 11/21/19 05:39 11/21/19 13:23 Tylenol [place] 650 mg Q6H PRN Administration Fever > 101 or Mild Pain Acetaminophen 650 mg 11/24/19 16:43 12/02/19 12:28 Tylenol Elixir PER TUBE 650 mg Q6H PRN Administration Fever > 100.3 Ascorbic Acid 1,000 mg 11/25/19 09:00 12/05/19 08:51 Vitamin C PO 1,000 mg DAILY JOSSY Administration Cholecalciferol 400 units 11/27/19 09:00 12/05/19 08:53 Vitamin D PER TUBE 400 units DAILY JOSSY Administration Clonidine 0.3 mg 11/23/19 13:00 11/30/19 12:15 [id number]-1 TD 0.3 mg Q7D JOSSY Administration Dextrose/Water 25 gm 11/21/19 04:06 11/21/19 04:21 Dextrose 50% SLOW IVP 25 gm PRN PRN Administration Hypoglycemia Enoxaparin Sodium 80 mg 11/25/19 21:00 12/04/19 21:10 Lovenox SC 80 mg 2100 JOSSY Administration Fluoxetine HCl 60 mg 11/22/19 09:00 12/05/19 08:50 Prozac PO 60 mg DAILY JOSSY Administration Furosemide 40 mg 12/02/19 09:00 12/05/19 09:24 Furosemide 40 Mg/4 Ml Vial SLOW IVP 40 mg DAILY JOSSY Administration Gabapentin 600 mg 11/21/19 15:00 12/05/19 14:46 Neurontin PO 600 mg TID JOSSY Administration Hydralazine HCl 100 mg 11/23/19 15:00 12/05/19 14:46 Apresoline PO 100 mg TID JOSSY Administration Nicardipine HCl 50 mg/ Sodium 250 mls @ 0 mls/hr 11/24/19 09:45 12/04/19 08:54 Chloride IV 250 mls INF JOSSY Administration Protocol As Directed Oxacillin Sodium 2 gm/ Sodium 100 mls @ 200 mls/hr 11/27/19 09:00 12/05/19 12:19 Chloride IVPB 100 mls Q4HR JOSSY Administration Dexmedetomidine HCl 400 mcg/ 100 mls @ 0 mls/hr 12/01/19 19:00 12/05/19 09:36 Sodium Chloride IVPB 100 mls INF JOSSY Administration Protocol Titrate Insulin Human Lispro 0 units 11/24/19 10:33 12/05/19 10:20 Humalog SC 2 unit .MODERATE SLIDING SC PRN Administration Moderate Correctional Scale Insulin Human NPH 30 unit 11/28/19 09:00 12/05/19 09:22 Humulin N SC 30 unit Q12HR JOSSY Administration Isosorbide Dinitrate 40 mg 12/04/19 09:00 12/05/19 14:49 Isosorbide Dinitrate 20 Mg Tab PO 40 mg TID JOSSY Administration Labetalol HCl 20 mg 12/01/19 19:47 12/03/19 23:46 Labetalol Hcl 100 Mg/20 Ml Vial IVPB 20 mg Q2H PRN Administration SBP > 180 Labetalol HCl 400 mg 12/03/19 09:00 12/05/19 14:46 Labetalol 100 Mg Tab PO 400 mg TID JOSSY Administration Levothyroxine Sodium 100 mcg 11/22/19 06:00 12/05/19 05:25 Synthroid PO 100 mcg 0600 JOSSY Administration Lorazepam 2 mg 12/03/19 13:50 12/04/19 02:45 Lorazepam 2 Mg/Ml Vial SLOW IVP 2 mg Q1H PRN Administration Breakthrough Agitation Losartan Potassium 100 mg 12/05/19 09:00 12/05/19 09:37 Losartan 25 Mg Tab PO 100 mg DAILY JOSSY Administration Methylprednisolone Sodium Succinate 80 mg 11/24/19 21:00 12/05/19 08:52 Solu-Medrol IVP 80 mg Q12HR JOSSY Administration Metolazone 5 mg 12/04/19 08:30 12/05/19 08:52 Metolazone 5 Mg Tab PO 5 mg 0830 JOSSY Administration Olanzapine 10 mg 11/23/19 21:00 12/04/19 21:14 Zyprexa PO 10 mg HS JOSSY Administration Pantoprazole Sodium 40 mg 12/03/19 21:00 12/05/19 08:54 Pantoprazole 40 Mg Vial IVP 40 mg Q12HR JOSSY Administration Propofol 1,000 mg 11/21/19 02:24 12/05/19 00:08 Diprivan IV 12/21/19 02:24 1,000 mg INF PRN Administration TO ACHIEVE GOAL RASS Protocol Sodium Bicarbonate 650 mg 11/30/19 15:00 12/05/19 14:45 Sodium Bicarbonate Tab 325 Mg Tab PO 650 mg TID JOSSY Administration Sodium Chloride 10 ml 11/25/19 09:00 12/05/19 09:11 Flush - Normal Saline IVF 10 ml Q12HR JOSSY Administration Spironolactone 100 mg 12/02/19 09:00 12/05/19 08:54 Spironolactone 100 Mg Tab PO 100 mg DAILY JOSSY Administration - Exam General - other findings: sedate on mech ventilation Eye: PERRL, anicteric sclera ENT: normocephalic atraumatic, no oropharyngeal lesions ENT - other findings: ETT in place Neck: supple, symmetric, no JVD, no thyromegaly, no lymphadenopathy Heart: RRR, no gallops, no rubs, normal peripheral pulses Heart - other findings: S1, S2 Respiratory: tachypneic Respiratory - other findings: diminished in bases, few scattered rhonchi Gastrointestinal: soft, non-tender, non-distended, normal bowel sounds, no palpable masses Extremities: no cyanosis, no clubbing, 1+ LE edema Skin: normal turgor Psychiatric - other findings: opens eyes to voice Hosp A/P (1) Pneumonia due to COVID-19 virus Code(s): U07.1 - COVID-19; J12.89 - OTHER VIRAL PNEUMONIA Status: Acute Plan: Continue Oxacillin/Lovenox/Solumedrol/mech ventilation (2) Acute respiratory failure with hypoxia Code(s): J96.01 - ACUTE RESPIRATORY FAILURE WITH HYPOXIA Status: Acute Plan: Continue Bilevel @ 60% FIO2 (3) Acute worsening of stage 3 chronic kidney disease Code(s): N18.3 - CHRONIC KIDNEY DISEASE, STAGE 3 (MODERATE) Status: Acute Plan: Improving slowly, avoid nephrotoxic meds and limit contrast exposure (4) Hyperaldosteronism Code(s): E26.9 - HYPERALDOSTERONISM, UNSPECIFIED Status: Chronic (5) Hypernatremia Code(s): E87.0 - HYPEROSMOLALITY AND HYPERNATREMIA Status: Acute Plan: Likely due to increased diuretic exposure, monitor closely, may need additional free-H2O replacement (6) DM type 2 (diabetes mellitus, type 2) Status: Chronic Qualifiers: Diabetes mellitus care home 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
[2019-12-05] MEDS: Enoxaparin Sodium 80 MG/0.8 ML SYRINGE SC SCH (20:10)
[2019-12-05] MEDS: OLANZapine 5 MG TAB PO SCH (21:40)
[2019-12-06] MEDS: Oxacillin 2 GM in Sodium Chloride 0.9% 100 ML IVPB SCH ×6 (04:10→19:51)
[2019-12-06 05:00] LABS: Band 16 % (5-11); Hemoglobin 9.6 g/dL (12.0-16.0); Lymphocytes 8 % (21-51); MDiff Complete? YES; Mean Corpuscular HGB CONC 32.4 g/dL (32.0-36.0); Mean Corpuscular Hemoglobin 31.1 pg (27.0-31.0); Mean Corpuscular Volume 95.9 fL (78.0-98.0); Mean Platelet Volume 9.4 fL (7.4-10.4); Monocytes 2 % (0-10); Neutrophil 74 % (42-75); Platelet Count 351 thou/uL (130-400); Platelet Morphology Comment Appears Adequate; RBC Distribution Width 14.7 % (11.5-14.5); Red Blood Cell (RBC) Count 3.07 mill/uL (4.20-5.40); White Blood Cell (WBC) Count 13.1 thou/uL (4.8-10.8)
[2019-12-06 05:05] LABS: ALT (SGPT) 10 U/L (8-55); AST (SGOT) 9 U/L (5-34); Albumin 3.2 g/dL (3.4-4.8); Alkaline Phosphatase 91 U/L (40-110); Anion Gap 17 mmol/L (10-20); BUN (Urea Nitrogen) 93 mg/dL (9.8-20.1); Bilirubin, Total 0.2 mg/dL (0.2-1.2); Calc. Creatinine Clearance 45 mL/min (70-130); Calcium 9.7 mg/dL (7.8-10.44); Carbon Dioxide 24 mmol/L (23-31); Chloride 109 mmol/L (98-107); Estimated GFR-MDRD 33; Globulin 3.7 g/dL (2.4-3.5); Glucose 200 mg/dL (80-115); Potassium 3.2 mmol/L (3.5-5.1); Protein, Total 6.9 g/dL (6.0-8.3); Sodium 147 mmol/L (136-145)
[2019-12-06] MEDS: HumaLOG 300 UNITS/3 ML VIAL SC PRN ×2 (05:40→16:14)
[2019-12-06] MEDS: Levothyroxine Sodium 100 MCG TAB PO SCH (06:00)
[2019-12-06 06:38] LABS: Magnesium 1.8 mg/dL (1.6-2.6); Phosphorus 3.9 mg/dL (2.3-4.7)
[2019-12-06 07:30] LABS: Actual Bicarbonate (HCO3a) 22.4 mEq/L (22-28); Base Excess (BEa) -0.9 mEq/L (-2.0 to +3.0); CO2 Tension 32.6 mmHg (35.0-45.0); Calcium, Ionized (arterial) 1.27 mmol/L (1.12-1.30); Carboxyhemoglobin (COHb) 0.7 gm% (0.0-3.0); Hemoglobin (Hb) 12.7 g/dL (12.0-16.0); Potassium - ABG Lab 3.91 mmol/L (3.70-5.30); pH, Arterial 7.45 (7.35-7.45)
[2019-12-06 07:45] LABS: O2 Tension (PaO2), arterial 56.6 mmHg (> 80.0); Puncture Site RRA
--- NOTE | 2019-12-06 07:51 | RAD ---
Chest one view HISTORY: Pneumonia. Follow-up. COMPARISON: 12/05/2019. FINDINGS: Cardiac silhouette is magnified and now partially obscured by increasing right femoral opac ity, predominantly groundglass, throughout the left lung. Pulmonary vasculature is engorged. Patient is rotated rightward. Gas within the right pleural space has increased slightly. Vertically oriented gas projecting over th e central chest may represent mediastinal air. Right thoracostomy tubes, endotracheal catheter, and nasogastric tube remain in place. Left subclavia n central venous catheter no longer visible. IMPRESSION : Slight interval increase in size of right pneumothorax. Probable pneumomediastinum. Worsening of airspace infiltrate throughout the left lung. Interval removal of the left subclavian central venous catheter.
[2019-12-06] MEDS: Spironolactone 100 MG TAB PO SCH (07:55)
[2019-12-06] MEDS: Fluconazole In NaCl,Iso-Osm 200 MG in Premix Bag 1 BAG IVPB SCH (07:55)
[2019-12-06] MEDS: Cholecalciferol (Vitamin D3) 400 UNITS TAB PER TUBE SCH (07:56)
[2019-12-06] MEDS: Labetalol 100 MG TAB PO SCH ×3 (07:56→21:32)
[2019-12-06] MEDS: Ascorbic Acid 500 mg Chewable Tablet PO SCH (07:58)
[2019-12-06] MEDS: FLUoxetine HCl 20 MG CAP PO SCH (07:58)
[2019-12-06] MEDS: Gabapentin 300 MG CAP PO SCH ×3 (07:59→19:56)
[2019-12-06] MEDS: Sodium Bicarbonate Tab 325 MG TAB PO SCH ×3 (07:59→19:56)
[2019-12-06] MEDS: Metolazone 5 MG TAB PO SCH (07:59)
[2019-12-06] MEDS: Losartan 25 MG TAB PO SCH (07:59)
[2019-12-06] MEDS: Furosemide 40 MG/4 ML VIAL SLOW IVP SCH ×2 (08:00→19:55)
[2019-12-06] MEDS: methylPREDNISolone Sod Succ/PF 125 MG/2 ML VIAL IVP SCH ×2 (08:00→19:52)
[2019-12-06] MEDS: hydrALAZINE 25 MG TAB PO SCH ×3 (08:00→21:31)
[2019-12-06] MEDS: Pantoprazole 40 MG VIAL IVP SCH ×2 (08:01→19:51)
[2019-12-06] MEDS: Isosorbide Dinitrate 20 MG TAB PO SCH ×3 (08:06→21:31)
[2019-12-06] MEDS: NPH, Human Insulin Isophane 300 UNIT/3 ML VIAL SC SCH ×2 (08:06→19:58)
[2019-12-06] MEDS ORDERED: Ventilator Sedation Protocol 1 EACH FS ONE (08:42)
[2019-12-06] MEDS ORDERED: Vecuronium Bromide 20 MG VIAL IV PRN (08:43)
[2019-12-06] MEDS ORDERED: Vecuronium 10 MG VIAL ONE ×2 (08:46→10:14)
[2019-12-06] MEDS ORDERED: Sterile Water 10 ML ONE (08:47)
[2019-12-06] MEDS: Propofol 1,000 MG/100 ML VIAL IV PRN ×3 (08:50→21:36)
[2019-12-06] MEDS ORDERED: fentaNYL Citrate/PF 2,000 MCG in Sodium Chloride 0.9% 60 ML IV SCH ×2 (09:00→09:30)
[2019-12-06] MEDS ORDERED: Propofol BOLUS 1,000 MG/100 ML VIAL IV PRN ×2 (09:00→09:30)
[2019-12-06] MEDS ORDERED: DISCONTINUE PREVIOUS NARCOTIC PAIN MEDICATIONS AND BENZODIAZEPINES FS SCH ×2 (09:00→09:30)
[2019-12-06] MEDS ORDERED: Fentanyl BOLUS 250 ML IVPB PRN ×2 (09:00→09:30)
--- NOTE | 2019-12-06 09:03 | PDOC.NEPPN ---
- Subjective Encounter Date: 12/06/19 Subjective: Still intuabted and mechanically ventilated. BP is still very variable. Having elevated BP in the mornings. - Objective Vital Signs & Weight: Vital Signs (12 hours) Temp Pulse Resp BP Pulse Ox 12/06/19 08:00 84 166/109 H 12/06/19 07:56 85 166/111 H 12/06/19 07:19 96 12/06/19 07:10 83 168/107 H 12/06/19 06:00 26 H 12/06/19 04:00 98.2 F 12/06/19 03:59 26 H 12/06/19 02:25 82 164/99 H 12/06/19 02:00 26 H 12/06/19 00:00 98.8 F 26 H 98 12/05/19 22:11 87 140/86 12/05/19 22:00 26 H Weight Admit Weight 197 lb Weight 206 lb 9.17 oz Most Recent Monitor Data Heart Rate from ECG 82 NIBP 168/107 NIBP BP-Mean 127 Respiration from ECG 26 SpO2 95 I&O: 12/05/19 12/06/19 12/07/19 06:59 06:59 06:59 Intake Total 3268.7 2852.3 Output Total 5480 3905 Balance -2211.3 -1052.7 Result Diagrams: 12/06/19 03:35 12/06/19 03:35 Additional Labs: Accuchecks 12/06/19 12/05/19 12/05/19 08:28 22:13 20:31 POC Glucose 146 H 182 H 186 H 12/05/19 12/05/19 12/04/19 17:01 10:24 17:24 POC Glucose 192 H 159 H 254 H 12/03/19 12/03/19 12/01/19 20:13 04:47 16:11 POC Glucose 156 H 125 H 142 H 12/01/19 12/01/19 11:07 03:21 POC Glucose 162 H 120 H Nephrology ROS - Medication Medications: Active Medications Generic Name Dose Route Start Last Admin Trade Name Freq PRN Reason Stop Dose Admin Acetaminophen 650 mg 11/21/19 05:39 11/21/19 13:23 Tylenol [place] 650 mg Q6H PRN Administration Fever > 101 or Mild Pain Acetaminophen 650 mg 11/24/19 16:43 12/02/19 12:28 Tylenol Elixir PER TUBE 650 mg Q6H PRN Administration Fever > 100.3 Ascorbic Acid 1,000 mg 11/25/19 09:00 12/06/19 07:58 Vitamin C PO 1,000 mg DAILY JOSSY Administration Cholecalciferol 400 units 11/27/19 09:00 12/06/19 07:56 Vitamin D PER TUBE 400 units DAILY JOSSY Administration Clonidine 0.3 mg 11/23/19 13:00 11/30/19 12:15 Rpplfkpa-Usi-9 TD 0.3 mg Q7D JOSSY Administration Dextrose/Water 25 gm 11/21/19 04:06 11/21/19 04:21 Dextrose 50% SLOW IVP 25 gm PRN PRN Administration Hypoglycemia Enoxaparin Sodium 80 mg 11/25/19 21:00 12/05/19 20:10 Lovenox SC 80 mg 2100 JOSSY Administration Fluoxetine HCl 60 mg 11/22/19 09:00 12/06/19 07:58 Prozac PO 60 mg DAILY JOSSY Administration Furosemide 40 mg 12/06/19 09:00 12/06/19 08:00 Furosemide 40 Mg/4 Ml Vial SLOW IVP 40 mg BID JOSSY Administration Gabapentin 600 mg 11/21/19 15:00 12/06/19 07:59 Neurontin PO 600 mg TID JOSSY Administration Nicardipine HCl 50 mg/ Sodium 250 mls @ 0 mls/hr 11/24/19 09:45 12/04/19 08:54 Chloride IV 250 mls INF JOSSY Administration Protocol As Directed Oxacillin Sodium 2 gm/ Sodium 100 mls @ 200 mls/hr 11/27/19 09:00 12/06/19 07:53 Chloride IVPB 100 mls Q4HR JOSSY Administration Fluconazole/Sodium Chloride 100 mls @ 100 mls/hr 12/06/19 09:00 12/06/19 07:55 200 mg/ Device IVPB 100 mls DAILY JOSSY Administration Insulin Human Lispro 0 units 11/24/19 10:33 12/06/19 05:40 Humalog SC 2 unit .MODERATE SLIDING SC PRN Administration Moderate Correctional Scale Insulin Human NPH 30 unit 11/28/19 09:00 12/06/19 08:06 Humulin N SC 30 unit Q12HR JOSSY Administration Labetalol HCl 20 mg 12/01/19 19:47 12/03/19 23:46 Labetalol Hcl 100 Mg/20 Ml Vial IVPB 20 mg Q2H PRN Administration SBP > 180 Levothyroxine Sodium 100 mcg 11/22/19 06:00 12/06/19 06:00 Synthroid PO 100 mcg 0600 JOSSY Administration Lorazepam 2 mg 12/03/19 13:50 12/04/19 02:45 Lorazepam 2 Mg/Ml Vial SLOW IVP 2 mg Q1H PRN Administration Breakthrough Agitation Losartan Potassium 100 mg 12/05/19 09:00 12/06/19 07:59 Losartan 25 Mg Tab PO 100 mg DAILY JOSSY Administration Methylprednisolone Sodium Succinate 80 mg 11/24/19 21:00 12/06/19 08:00 Solu-Medrol IVP 80 mg Q12HR JOSSY Administration Metolazone 5 mg 12/04/19 08:30 12/06/19 07:59 Metolazone 5 Mg Tab PO 5 mg 0830 JOSSY Administration Olanzapine 10 mg 11/23/19 21:00 12/05/19 21:40 Zyprexa PO 10 mg HS JOSSY Administration Pantoprazole Sodium 40 mg 12/03/19 21:00 12/06/19 08:01 Pantoprazole 40 Mg Vial IVP 40 mg Q12HR JOSSY Administration Potassium Chloride 40 meq 12/06/19 06:15 12/06/19 06:27 Potassium Chloride 20 Meq Packet PER TUBE 12/06/19 14:16 40 meq Q8H JOSSY Administration Propofol 1,000 mg 11/21/19 02:24 12/06/19 08:50 Diprivan IV 12/21/19 02:24 1,000 mg INF PRN Administration TO ACHIEVE GOAL RASS Protocol Sodium Bicarbonate 650 mg 11/30/19 15:00 12/06/19 07:59 Sodium Bicarbonate Tab 325 Mg Tab PO 650 mg TID JOSSY Administration Sodium Chloride 10 ml 11/25/19 09:00 12/06/19 07:53 Flush - Normal Saline IVF 10 ml Q12HR JOSSY Administration Spironolactone 100 mg 12/02/19 09:00 12/06/19 07:55 Spironolactone 100 Mg Tab PO 100 mg DAILY JOSSY Administration - Exam General - other findings: sedated ENT: normocephalic atraumatic ENT - other findings: Et tube in place Respiratory: tachypneic Respiratory - other findings: Ventilator transmitted sound noted Cardiovascular: RRR Gastrointestinal: soft, non-distended, diminished bowl sounds Gastrointestinal - other findings: Quevedo catheter in place draining urine Extremities - other findings: Edema of the upper extremities noted. Neurological - other findings: Sedated. Nephrology Results - Labs Result Diagrams: 12/06/19 03:35 12/06/19 03:35 Lab results: WBC 13.1 thou/uL (4.8-10.8) H 12/06/19 03:35 Hgb 9.6 g/dL (12.0-16.0) L 12/06/19 03:35 Hct 29.5 % (36.0-47.0) L 12/06/19 03:35 MCV 95.9 fL (78.0-98.0) 12/06/19 03:35 Plt Count 351 thou/uL (130-400) 12/06/19 03:35 Neutrophils % 87.4 % (42.0-75.0) H 11/21/19 01:12 Band Neuts % (Manual) 16 % (5-11) H 12/06/19 03:35 ABG pH 7.45 (7.35-7.45) 12/06/19 07:11 ABG pCO2 32.6 mmHg (35.0-45.0) L 12/06/19 07:11 ABG pO2 56.6 mmHg (> 80.0) L* 12/06/19 07:11 Sodium 147 mmol/L (136-145) H 12/06/19 03:35 Potassium 3.2 mmol/L (3.5-5.1) L 12/06/19 03:35 Chloride 109 mmol/L (98-107) H 12/06/19 03:35 Carbon Dioxide 24 mmol/L (23-31) 12/06/19 03:35 BUN 93 mg/dL (9.8-20.1) H 12/06/19 03:35 Creatinine 1.85 mg/dL (0.6-1.1) H 12/06/19 03:35 Glucose 200 mg/dL (80-115) H 12/06/19 03:35 Lactic Acid 1.9 mmol/L (0.5-2.2) 11/21/19 01:12 Calcium 9.7 mg/dL (7.8-10.44) 12/06/19 03:35 Total Bilirubin 0.2 mg/dL (0.2-1.2) 12/06/19 03:35 AST 9 U/L (5-34) 12/06/19 03:35 ALT 10 U/L (8-55) 12/06/19 03:35 Alkaline Phosphatase 91 U/L (40-110) 12/06/19 03:35 Creatine Kinase 191 U/L (29-168) H 11/21/19 02:08 Troponin I 0.013 ng/mL (< 0.028) 11/21/19 01:12 C-Reactive Protein 10.70 mg/dL (= or < 0.5) H 12/03/19 13:04 B-Natriuretic Peptide 56.8 pg/mL (0-100) 11/21/19 01:12 Serum Total Protein 6.9 g/dL (6.0-8.3) 12/06/19 03:35 Albumin 3.2 g/dL (3.4-4.8) L 12/06/19 03:35 Urine Ketones Negative mg/dL (Negative) 12/02/19 14:20 Urine Blood Negative (Negative) 12/02/19 14:20 Urine Nitrite Negative (Negative) 12/02/19 14:20 Ur Leukocyte Esterase Negative Sarahy/uL (Negative) 12/02/19 14:20 Urine RBC 0-3 HPF (0-3) 12/02/19 14:20 Urine WBC 0-3 HPF (0-3) 12/02/19 14:20 Ur Squamous Epith Cells 0-3 HPF (0-3) 12/02/19 14:20 Urine Bacteria None Seen HPF (None Seen) 12/02/19 14:20 Nephrology AP PN - Plan ASSESSMENT: Hypertension. Still having acute elevation in BP most early mornings. Most likely related to dosing times of antihypertensives. patient is getting hydralazine, isosorbide and labetalol art 0900, 1500 and 2100 hours. That means she antihypertensives 3 times in a 12 hour period between 9 am and 9 pm and n othing from 9pm and 9 am. Acute kidney injury due to hemodynamic factors, markedly improved. Creat is back to recent baseline Chronic kidney disease stage 3. Creat back to baseline Hypernatremia: Due to inadequate free water intake and lasix diuretic. Improving Fluid overload. Hypoalbuminemia Metabolic acidosis. Initially due to sepsis but currently due mostly to hyperchloremic acidosis. Primary hyperaldosteronism, on spironolactone. Septic shock, resolved. Staphylococcus bacteremia. Acute respiratory failure on the vent COVID pneumonia. Multifocal pneumonia. Right-sided pneumothorax. Acute anemia: Drop in Hb due to demodilution. Improving with diuretics. Acute illness and GI bleeding cannot be ruled out. Presumed fungaemia given positive blood culture with yeast PLAN: Change dosing time of labetalol, hydralazine and isosorbide from tid to q8h. Continue free water flushes Continue diuretic therapy with metolazone and lasix. Increase lasix to BID due to worsening pulmonary infiltrates Continue spironolactone to 100 mg daily and monitor serum potassium Continue oral sodium bicarbonate. Antimicrobial as per ID.
[2019-12-06] MEDS ORDERED: Propofol 1,000 MG/100 ML VIAL IV PRN (09:30)
[2019-12-06] MEDS ORDERED: Morphine 2 MG/ML VIAL SLOW IVP PRN (09:30)
[2019-12-06] MEDS ORDERED: Lorazepam 2 MG/ML VIAL SLOW IVP PRN (09:30)
--- NOTE | 2019-12-06 11:22 | PRG ---
DATE OF SERVICE: 12/05/2019 SUBJECTIVE: Ms. Mosqueda continues to be intubated. She is off Cardene drip, bilevel mechanical ventilation. OBJECTIVE: VITAL SIGNS: Her pulse is 86. Temperature has been normal. BP 130/90, FiO2 of 65 and she is saturating at 94% to 99%. The balance has been negative for the past few days, up to 2000 negative. The chest tube drainage 40 mL, yesterday was 105 mL. Quevedo output 1100. GENERAL: The patient is sedated. HEENT: Pupils are constricted. CHEST: Coarse, but symmetric breath sounds. HEART: S1 and S2, diminished heart sounds. ABDOMEN: Not distended. IMAGING STUDIES: Today's chest x-ray with ET tube, NG tube, left-sided central line, and two right-sided thoracostomy tubes in place. The right-sided pneumothorax has improved. The parenchymal lung changes are again seen at the right and left sides with perihilar densities as well. LABORATORY DATA: White cell count is at 13.1, hemoglobin 9.5, platelets 333, with 85% neutrophils. D-dimer 2.78. Creatinine is down to 1.9, sodium 149, potassium 3.5, carbon dioxide 23. Liver profile normal. Albumin 3.3. Microbiology, we have repeat blood culture from the central line with presumptive Lana albicans. ASSESSMENT AND DISCUSSION: Type 2 diabetes; Crohn's disease, on periodic TNF inhibitors; chronic obstructive lung disease; COVID pneumonia; MSSA bacteremia, probably from port. Now, she has Lana albicans colonization with Lana fungemia, transient. We will go ahead and continue with Diflucan. Eventually, she will have to have the catheter exchanged, but it is not considered to be an emergency. Duration of therapy for now will be 21 days. We will have to check her retinal examination to make sure she does not have endophthalmitis, that will require dilated funduscopic eval. Job ID: [id number] MTDD
--- NOTE | 2019-12-06 12:13 | RAD ---
CHEST 1 VIEW: Date: 12/06/2019 HISTORY: Worsening pneumothorax. COMPARISON: Radiograph same date. FINDINGS: Slight interval size increase right apical lateral pneumothorax. Endotracheal tube tip is similar. En teric tube tip below diaphragm, though out of field of view. The left-sided air space opacities are similar. Right-sided thoracostomy tube is in place. IMPRESSION: Very slight interval size increase of the right apical pneumothorax. POS: [facility]
[2019-12-06] MEDS: Vecuronium 10 MG VIAL IV PRN ×3 (13:23→22:14)
--- NOTE | 2019-12-06 14:16 | PDOC.PALPN ---
Palliative Progress Note - Subjective Sedated, mechanical ventilation - Objective Vital Signs: Vital Signs - Most Recent Temp Pulse Resp BP Pulse Ox 98.9 F 86 26 H 151/101 H 96 12/06/19 12:00 12/06/19 13:25 12/06/19 14:00 12/06/19 13:25 12/06/19 07:19 - Physical Exam Constitutional: encephalitic, ill appearing HEENT: moist MMs Deviation from normal: adventicious left upper lobe, diminished Cardiovascular: RRR Gastrointestinal: soft, non-tender Genitourinary: okeefe catheter Musculoskeletal: edema present, diffuse muscle atrophy Deviation from normal: encephalopathic, sedated Skin: cap refill <2 seconds, no lesions, no rash Deviation from normal: encephalopathic, sedated - Assessment (1) Palliative care encounter Code(s): Z51.5 - ENCOUNTER FOR PALLIATIVE CARE Current Visit: Yes Status: Acute (2) Acute respiratory failure with hypoxia Code(s): J96.01 - ACUTE RESPIRATORY FAILURE WITH HYPOXIA Current Visit: Yes Status: Acute (3) Pneumonia due to COVID-19 virus Code(s): U07.1 - COVID-19; J12.89 - OTHER VIRAL PNEUMONIA Current Visit: Yes Status: Acute (4) Physical deconditioning Code(s): R53.81 - OTHER MALAISE Current Visit: No Status: Acute (5) Chronic stage c diastolic heart failure Code(s): I50.32 - CHRONIC DIASTOLIC (CONGESTIVE) HEART FAILURE Current Visit: No Status: Chronic (6) Obesity Code(s): E66.9 - OBESITY, UNSPECIFIED Current Visit: No Status: Chronic - Plan Plan: Communicated with patient after assessing patient. Reviewed increase need for ventilatory support, sedation. Discussed DNAR status and he relays that he wishes for everything to be done. In attempting to have Rahul (Patient ) do a teach back it appears he is having difficulty grasping severity of her illness. Possibly poor health literacy. Emotional support, therapeutic listening. Spiritual care consult, communicated with Chucho [[id number]] minutes spent on this encounter with >50% of the time in counseling and coordination of care. - ROS Non Response: due to endotracheal tube, due to mental status
--- NOTE | 2019-12-06 14:19 | PRG ---
DATE OF SERVICE: 12/06/2019 SUBJECTIVE: Ms. Mosqueda still has an air leak. Her PEEP was turned down, which decreased her air leak. Her lung on the right is not completely inflated on the x-ray today. We are continuing to keep her sedated and intermittently having paralyze her. OBJECTIVE: VITAL SIGNS: Heart rates in the 80s, blood pressure 151/101, FiO2 is at 50%. LUNGS: Unchanged. HEART: Unchanged. ABDOMEN: Unchanged. LABORATORY DATA: White count 13.1, hemoglobin 9.6, platelets 351. Sodium 147, potassium 3.2, chloride 109, bicarb 24, BUN 93, creatinine 1.85. IMPRESSION: 1. COVID pneumonia with respiratory failure. 2. Pneumothorax with chest tubes in place. 3. Central line colonization. Her central line was replaced with midlines. 4. History of Crohn disease. 5. Diabetes. 6. History of chronic obstructive pulmonary disease. 7. Staph bacteremia most likely from a port. She will continue with antifungal therapy. We will continue mechanical ventilation. She is not weanable. At some point toward the end of the week, we need to put in a consult for tracheostomy. CRITICAL CARE TIME: 30 minutes. Job ID: [id number]
[2019-12-06] MEDS: Enoxaparin Sodium 80 MG/0.8 ML SYRINGE SC SCH (19:51)
[2019-12-06] MEDS: Amlodipine 10 MG TAB PO SCH (19:57)
[2019-12-06] MEDS: OLANZapine 5 MG TAB PO SCH (19:59)
[2019-12-07] MEDS: Oxacillin 2 GM in Sodium Chloride 0.9% 100 ML IVPB SCH ×5 (01:55→17:27)
[2019-12-07] MEDS: Levothyroxine Sodium 100 MCG TAB PO SCH (04:49)
[2019-12-07] MEDS: Isosorbide Dinitrate 20 MG TAB PO SCH (04:49)
[2019-12-07] MEDS: hydrALAZINE 25 MG TAB PO SCH ×3 (04:49→21:45)
[2019-12-07] MEDS: Labetalol 100 MG TAB PO SCH ×3 (04:50→21:45)
[2019-12-07] MEDS ORDERED: Isosorbide Dinitrate 20 MG TAB PO SCH (06:00)
[2019-12-07 06:03] LABS: Hemoglobin 9.4 g/dL (12.0-16.0); Hypochromia SLIGHT = 6-15 cells (100X) (0-5/hpf); Lymphocytes 5 % (21-51); MDiff Complete? YES; Mean Corpuscular Volume 96.8 fL (78.0-98.0); Mean Platelet Volume 9.9 fL (7.4-10.4); Monocytes 4 % (0-10); Neutrophil 91 % (42-75); Platelet Count 321 thou/uL (130-400); Platelet Morphology Comment Appears Adequate; RBC Distribution Width 15.4 % (11.5-14.5); Red Blood Cell (RBC) Count 3.02 mill/uL (4.20-5.40)
[2019-12-07 06:16] LABS: ALT (SGPT) 9 U/L (8-55); AST (SGOT) 14 U/L (5-34); Albumin 2.9 g/dL (3.4-4.8); Alkaline Phosphatase 80 U/L (40-110); Anion Gap 20 mmol/L (10-20); BUN (Urea Nitrogen) 92 mg/dL (9.8-20.1); Bilirubin, Total 0.2 mg/dL (0.2-1.2); Calc. Creatinine Clearance 44 mL/min (70-130); Calcium 9.5 mg/dL (7.8-10.44); Carbon Dioxide 22 mmol/L (23-31); Chloride 109 mmol/L (98-107); Estimated GFR-MDRD 33; Glucose 167 mg/dL (80-115); Potassium 4.2 mmol/L (3.5-5.1); Protein, Total 6.9 g/dL (6.0-8.3); Sodium 147 mmol/L (136-145)
[2019-12-07] MEDS: Propofol 1,000 MG/100 ML VIAL IV PRN ×4 (07:14→23:53)
[2019-12-07 07:49] LABS: Actual Bicarbonate (HCO3a) 23.3 mEq/L (22-28); Base Excess (BEa) 0.9 mEq/L (-2.0 to +3.0); CO2 Tension 30.4 mmHg (35.0-45.0); Calcium, Ionized (arterial) 1.24 mmol/L (1.12-1.30); Carboxyhemoglobin (COHb) 0.1 gm% (0.0-3.0); Hemoglobin (Hb) 12.2 g/dL (12.0-16.0); Potassium - ABG Lab 3.35 mmol/L (3.70-5.30)
--- NOTE | 2019-12-07 07:59 | RAD ---
EXAM: CHEST ONE VIEW HISTORY: Pneumonia. Follow-up evaluation. COMPARISON: 12/06/2019 FINDINGS: Endotracheal tube, nasogastric tube, and right-sided thoracostomy tubes remain in place. Right-sided pneumothorax does persist but does appear slightly improved from prior exam. Parenchymal opacity is seen at the right lung base. Minimal interstitial opacities are seen in the left midlung zone and lef t lung base. No other interval change. IMPRESSION: 1. Right-sided thoracostomy tubes remain in place with persistent small right-sided pneumothorax pneu mothorax which is slightly smaller in size. 2. Parenchymal airspace opacity right lung base could be related to volume loss or pneumonia. This al so mild persistent increased interstitial opacities within the left midlung zone and left lung base.
[2019-12-07 08:27] LABS: O2 Tension (PaO2), arterial 56.9 mmHg (> 80.0); Puncture Site LRA
--- NOTE | 2019-12-07 10:18 | PDOC.NEPPN ---
- Subjective Encounter Date: 12/07/19 Subjective: Seen in follow up for CKD/MOOK and HTN. Still intubated. - Objective Vital Signs & Weight: Vital Signs (12 hours) Temp Pulse Resp BP 12/07/19 08:00 98.6 F 26 H 12/07/19 07:33 80 112/76 12/07/19 06:00 26 H 12/07/19 05:03 84 136/88 12/07/19 04:00 98.5 F 26 H 12/07/19 02:08 84 123/92 H 12/07/19 02:00 26 H 12/07/19 00:00 99.4 F 26 H Weight Admit Weight 197 lb Weight 203 lb 4.259 oz Most Recent Monitor Data Heart Rate from ECG 81 NIBP 114/76 NIBP BP-Mean 88 Respiration from ECG 26 SpO2 96 I&O: 12/06/19 12/07/19 12/08/19 06:59 06:59 06:59 Intake Total 2852.3 2874 Output Total 3905 3827 150 Balance -1052.7 -953 -150 Result Diagrams: 12/07/19 04:55 12/07/19 04:55 Additional Labs: Accuchecks 12/06/19 16:14 POC Glucose 226 H Nephrology ROS - Medication Medications: Active Medications Generic Name Dose Route Start Last Admin Trade Name Freq PRN Reason Stop Dose Admin Acetaminophen 650 mg 11/21/19 05:39 11/21/19 13:23 Tylenol [place] 650 mg Q6H PRN Administration Fever > 101 or Mild Pain Acetaminophen 650 mg 11/24/19 16:43 12/02/19 12:28 Tylenol Elixir PER TUBE 650 mg Q6H PRN Administration Fever > 100.3 Amlodipine Besylate 10 mg 12/06/19 21:00 12/06/19 19:57 Amlodipine 10 Mg Tab PO 10 mg 2100 JOSSY Administration Ascorbic Acid 1,000 mg 11/25/19 09:00 12/06/19 07:58 Vitamin C PO 1,000 mg DAILY JOSSY Administration Cholecalciferol 400 units 11/27/19 09:00 12/06/19 07:56 Vitamin D PER TUBE 400 units DAILY JOSSY Administration Clonidine 0.3 mg 11/23/19 13:00 11/30/19 12:15 Zpshrlpa-Ddl-3 TD 0.3 mg Q7D JOSSY Administration Dextrose/Water 25 gm 11/21/19 04:06 11/21/19 04:21 Dextrose 50% SLOW IVP 25 gm PRN PRN Administration Hypoglycemia Enoxaparin Sodium 80 mg 11/25/19 21:00 12/06/19 19:51 Lovenox SC 80 mg 2100 JOSSY Administration Fluoxetine HCl 60 mg 11/22/19 09:00 12/06/19 07:58 Prozac PO 60 mg DAILY JOSSY Administration Furosemide 40 mg 12/06/19 09:00 12/06/19 19:55 Furosemide 40 Mg/4 Ml Vial SLOW IVP 40 mg BID JOSSY Administration Gabapentin 600 mg 11/21/19 15:00 12/06/19 19:56 Neurontin PO 600 mg TID JOSSY Administration Hydralazine HCl 100 mg 12/06/19 14:00 12/07/19 04:49 Hydralazine 25 Mg Tab PO 100 mg Q8H JOSSY Administration Nicardipine HCl 50 mg/ Sodium 250 mls @ 0 mls/hr 11/24/19 09:45 12/04/19 08:54 Chloride IV 250 mls INF JOSSY Administration Protocol As Directed Oxacillin Sodium 2 gm/ Sodium 100 mls @ 200 mls/hr 11/27/19 09:00 12/07/19 04:25 Chloride IVPB 100 mls Q4HR JOSSY Administration Fluconazole/Sodium Chloride 100 mls @ 100 mls/hr 12/06/19 09:00 12/06/19 07:55 200 mg/ Device IVPB 100 mls DAILY JOSSY Administration Insulin Human Lispro 0 units 11/24/19 10:33 12/06/19 16:14 Humalog SC 4 unit .MODERATE SLIDING SC PRN Administration Moderate Correctional Scale Insulin Human NPH 30 unit 11/28/19 09:00 12/06/19 19:58 Humulin N SC 30 unit Q12HR JOSSY Administration Labetalol HCl 20 mg 12/01/19 19:47 12/03/19 23:46 Labetalol Hcl 100 Mg/20 Ml Vial IVPB 20 mg Q2H PRN Administration SBP > 180 Levothyroxine Sodium 100 mcg 11/22/19 06:00 12/07/19 04:49 Synthroid PO 100 mcg 0600 JOSSY Administration Losartan Potassium 100 mg 12/05/19 09:00 12/06/19 07:59 Losartan 25 Mg Tab PO 100 mg DAILY JOSSY Administration Methylprednisolone Sodium Succinate 80 mg 11/24/19 21:00 12/06/19 19:52 Solu-Medrol IVP 80 mg Q12HR JOSSY Administration Metolazone 5 mg 12/04/19 08:30 12/06/19 07:59 Metolazone 5 Mg Tab PO 5 mg 0830 JOSSY Administration Olanzapine 10 mg 11/23/19 21:00 12/06/19 19:59 Zyprexa PO 10 mg HS JOSSY Administration Pantoprazole Sodium 40 mg 12/03/19 21:00 12/06/19 19:51 Pantoprazole 40 Mg Vial IVP 40 mg Q12HR JOSSY Administration Propofol 1,000 mg 12/06/19 09:00 12/07/19 07:14 Propofol 1,000 Mg/100 Ml Vial IV 01/05/20 09:00 1,000 mg INF PRN Administration TO ACHIEVE GOAL RASS Protocol Sodium Bicarbonate 650 mg 11/30/19 15:00 12/06/19 19:56 Sodium Bicarbonate Tab 325 Mg Tab PO 650 mg TID JOSSY Administration Sodium Chloride 10 ml 11/25/19 09:00 12/06/19 20:02 Flush - Normal Saline IVF 10 ml Q12HR JOSSY Administration Spironolactone 100 mg 12/02/19 09:00 12/06/19 07:55 Spironolactone 100 Mg Tab PO 100 mg DAILY JOSSY Administration Vecuronium [place] 10 mg 12/06/19 10:41 12/06/19 22:14 Vecuronium 10 Mg Vial IV 10 mg Q1H PRN Administration AGITATION - Exam General - other findings: sedated Eye: anicteric sclera ENT: normocephalic atraumatic ENT - other findings: ET tube in place Respiratory - other findings: Ventilator transmitted sound noted Cardiovascular: RRR Gastrointestinal: soft, non-distended, diminished bowl sounds Extremities - other findings: trace to mild edema of the hands Neurological - other findings: sedated Nephrology Results - Labs Result Diagrams: 12/07/19 04:55 12/07/19 04:55 Lab results: WBC 11.0 thou/uL (4.8-10.8) H 12/07/19 04:55 Hgb 9.4 g/dL (12.0-16.0) L 12/07/19 04:55 Hct 29.2 % (36.0-47.0) L 12/07/19 04:55 MCV 96.8 fL (78.0-98.0) 12/07/19 04:55 Plt Count 321 thou/uL (130-400) 12/07/19 04:55 Neutrophils % 87.4 % (42.0-75.0) H 11/21/19 01:12 Band Neuts % (Manual) 16 % (5-11) H 12/06/19 03:35 ABG pH 7.50 (7.35-7.45) H 12/07/19 08:10 ABG pCO2 30.4 mmHg (35.0-45.0) L 12/07/19 08:10 ABG pO2 56.9 mmHg (> 80.0) L* 12/07/19 08:10 Sodium 147 mmol/L (136-145) H 12/07/19 04:55 Potassium 4.2 mmol/L (3.5-5.1) 12/07/19 04:55 Chloride 109 mmol/L (98-107) H 12/07/19 04:55 Carbon Dioxide 22 mmol/L (23-31) L 12/07/19 04:55 BUN 92 mg/dL (9.8-20.1) H 12/07/19 04:55 Creatinine 1.85 mg/dL (0.6-1.1) H 12/07/19 04:55 Glucose 167 mg/dL (80-115) H 12/07/19 04:55 Lactic Acid 1.9 mmol/L (0.5-2.2) 11/21/19 01:12 Calcium 9.5 mg/dL (7.8-10.44) 12/07/19 04:55 Total Bilirubin 0.2 mg/dL (0.2-1.2) 12/07/19 04:55 AST 14 U/L (5-34) 12/07/19 04:55 ALT 9 U/L (8-55) 12/07/19 04:55 Alkaline Phosphatase 80 U/L (40-110) 12/07/19 04:55 Creatine Kinase 191 U/L (29-168) H 11/21/19 02:08 Troponin I 0.013 ng/mL (< 0.028) 09/07/20 01:12 C-Reactive Protein 10.70 mg/dL (= or < 0.5) H 12/03/19 13:04 B-Natriuretic Peptide 56.8 pg/mL (0-100) 11/21/19 01:12 Serum Total Protein 6.9 g/dL (6.0-8.3) 12/07/19 04:55 Albumin 2.9 g/dL (3.4-4.8) L 12/07/19 04:55 Urine Ketones Negative mg/dL (Negative) 12/02/19 14:20 Urine Blood Negative (Negative) 12/02/19 14:20 Urine Nitrite Negative (Negative) 12/02/19 14:20 Ur Leukocyte Esterase Negative Sarahy/uL (Negative) 12/02/19 14:20 Urine RBC 0-3 HPF (0-3) 12/02/19 14:20 Urine WBC 0-3 HPF (0-3) 12/02/19 14:20 Ur Squamous Epith Cells 0-3 HPF (0-3) 12/02/19 14:20 Urine Bacteria None Seen HPF (None Seen) 12/02/19 14:20 Nephrology AP PN - Plan ASSESSMENT: Hypertension. Poor control most likely related to rebound from inappropriate timing of medicatoions. BP control markely better with changes in BP med timing. Patient was getting hydralazine, isosorbide and labetalol art 0900, 1500 and 2100 hours. this was changed to q8h. Acute kidney injury due to hemodynamic factors, markedly improved. Creat is stable. Back to recent baseline Chronic kidney disease stage 3. Creat back to baseline Hypernatremia: Due to inadequate free water intake and lasix diuretic. Improving Fluid overload. Hypoalbuminemia Metabolic acidosis. Primary hyperaldosteronism, on spironolactone. Septic shock, resolved. Staphylococcus bacteremia. Acute respiratory failure on the vent COVID pneumonia. Multifocal pneumonia. Right-sided pneumothorax. Acute anemia: Drop in Hb due to demodilution. Improved with diuretics. Presumed fungaemia given positive blood culture with yeast PLAN: DC isosorbide due to soft BP. decrease labetalol to 100 q8h. Continue other antihypertensives with holding parameters increase free water flushes to correct hypernatremia Continue diuretic therapy with metolazone and lasix. Continue spironolactone to 100 mg daily and monitor serum potassium Continue oral sodium bicarbonate. Antimicrobial as per ID.
[2019-12-07] MEDS: Spironolactone 100 MG TAB PO SCH (10:24)
[2019-12-07] MEDS: Losartan 25 MG TAB PO SCH (10:24)
[2019-12-07] MEDS: NPH, Human Insulin Isophane 300 UNIT/3 ML VIAL SC SCH ×2 (10:25→21:45)
[2019-12-07] MEDS: Gabapentin 300 MG CAP PO SCH ×3 (10:25→19:27)
[2019-12-07] MEDS: FLUoxetine HCl 20 MG CAP PO SCH (10:26)
[2019-12-07] MEDS: Metolazone 5 MG TAB PO SCH (10:26)
[2019-12-07] MEDS: Cholecalciferol (Vitamin D3) 400 UNITS TAB PER TUBE SCH (10:26)
[2019-12-07] MEDS: Sodium Bicarbonate Tab 325 MG TAB PO SCH ×3 (10:26→19:27)
[2019-12-07] MEDS: methylPREDNISolone Sod Succ/PF 125 MG/2 ML VIAL IVP SCH ×2 (10:27→19:22)
[2019-12-07] MEDS: Ascorbic Acid 500 mg Chewable Tablet PO SCH (10:27)
[2019-12-07] MEDS: Fluconazole In NaCl,Iso-Osm 200 MG in Premix Bag 1 BAG IVPB SCH (10:28)
[2019-12-07] MEDS: Pantoprazole 40 MG VIAL IVP SCH ×2 (10:28→19:25)
[2019-12-07] MEDS: Furosemide 40 MG/4 ML VIAL SLOW IVP SCH ×2 (10:28→19:21)
[2019-12-07] MEDS: cloNIDine 0.3mg/24 Hour PATCH TD SCH (15:58)
[2019-12-07] MEDS: Enoxaparin Sodium 80 MG/0.8 ML SYRINGE SC SCH (19:22)
[2019-12-07] MEDS: Amlodipine 10 MG TAB PO SCH (19:27)
[2019-12-07] MEDS: OLANZapine 5 MG TAB PO SCH (19:28)
--- NOTE | 2019-12-07 22:59 | PRG ---
DATE OF SERVICE: 12/07/2019 SUBJECTIVE: Ronda Mosqueda remains intubated. She is making very slow progress. OBJECTIVE: VITAL SIGNS: Heart rate is 84, respiratory rates in the 20s, FiO2 is at 55, blood pressure 150/101 this evening. She was seen multiple times today. LUNGS: Unchanged. HEART: Unchanged. ABDOMEN: Unchanged. EXTREMITIES: Without edema. LABORATORY DATA: White count 11, hemoglobin 9.4, platelets 321. Sodium 147, potassium 4.2, chloride 109, bicarb 22, BUN 92, creatinine 1.85. IMPRESSION: 1. COVID pneumonia. 2. Acute on chronic kidney disease. Intake and outputs -1280. Continue supportive care. If we get her down closer to 40%, then we can consider ostomy. Job ID: [id number]
[2019-12-08 04:38] LABS: Band 8 % (5-11); Hemoglobin 10.4 g/dL (12.0-16.0); Lymphocytes 4 % (21-51); MDiff Complete? YES; Mean Corpuscular HGB CONC 32.8 g/dL (32.0-36.0); Mean Corpuscular Hemoglobin 31.7 pg (27.0-31.0); Mean Corpuscular Volume 96.6 fL (78.0-98.0); Mean Platelet Volume 9.5 fL (7.4-10.4); Monocytes 3 % (0-10); Neutrophil 85 % (42-75); Platelet Count 348 thou/uL (130-400); Platelet Morphology Comment Appears Adequate; RBC Distribution Width 15.8 % (11.5-14.5); Red Blood Cell (RBC) Count 3.28 mill/uL (4.20-5.40)
[2019-12-08] MEDS: Labetalol 100 MG TAB PO SCH ×3 (04:58→21:02)
[2019-12-08] MEDS: hydrALAZINE 25 MG TAB PO SCH ×3 (04:59→21:02)
[2019-12-08] MEDS: Levothyroxine Sodium 100 MCG TAB PO SCH (04:59)
[2019-12-08 05:03] LABS: ALT (SGPT) 12 U/L (8-55); AST (SGOT) 21 U/L (5-34); Albumin 3.1 g/dL (3.4-4.8); Alkaline Phosphatase 91 U/L (40-110); Anion Gap 22 mmol/L (10-20); BUN (Urea Nitrogen) 93 mg/dL (9.8-20.1); Bilirubin, Total 0.2 mg/dL (0.2-1.2); Calc. Creatinine Clearance 43 mL/min (70-130); Calcium 9.8 mg/dL (7.8-10.44); Carbon Dioxide 23 mmol/L (23-31); Chloride 104 mmol/L (98-107); Estimated GFR-MDRD 32; Globulin 4.7 g/dL (2.4-3.5); Glucose 178 mg/dL (80-115); Protein, Total 7.8 g/dL (6.0-8.3); Sodium 144 mmol/L (136-145)
[2019-12-08] MEDS: Propofol 1,000 MG/100 ML VIAL IV PRN ×3 (05:10→18:37)
[2019-12-08] MEDS: Fluconazole In NaCl,Iso-Osm 200 MG in Premix Bag 1 BAG IVPB SCH (09:27)
[2019-12-08] MEDS: methylPREDNISolone Sod Succ/PF 125 MG/2 ML VIAL IVP SCH ×2 (09:28→20:42)
[2019-12-08] MEDS: Pantoprazole 40 MG VIAL IVP SCH ×2 (09:28→20:42)
[2019-12-08] MEDS: Furosemide 40 MG/4 ML VIAL SLOW IVP SCH ×2 (09:30→20:42)
[2019-12-08] MEDS: Metolazone 5 MG TAB PO SCH (09:30)
[2019-12-08] MEDS ORDERED: cloNIDine 0.3mg/24 Hour PATCH TD SCH (09:30)
[2019-12-08] MEDS: Cholecalciferol (Vitamin D3) 400 UNITS TAB PER TUBE SCH (09:30)
[2019-12-08] MEDS: Ascorbic Acid 500 mg Chewable Tablet PO SCH (09:30)
--- NOTE | 2019-12-08 09:30 | PDOC.NEPPN ---
- Subjective Encounter Date: 12/08/19 Encounter Time: 09:28 Subjective: Seen in follow up for MOOK on CKD and HTN. Still intubated. BP was soft and low yesterday necessitating holding of some antihypertensives. BP is currently elevated. - Objective Vital Signs & Weight: Vital Signs (12 hours) Temp Pulse Resp BP 12/08/19 08:00 99.2 F 12/08/19 07:02 87 139/98 H 12/08/19 06:00 26 H 12/08/19 04:00 98.7 F 26 H 12/08/19 02:03 84 132/87 12/08/19 02:00 26 H 12/08/19 00:00 98.1 F 26 H 12/07/19 22:08 84 12/07/19 22:00 26 H 12/07/19 21:45 81 Weight Admit Weight 197 lb Weight 198 lb 13.711 oz Most Recent Monitor Data Heart Rate from ECG 87 NIBP 143/102 NIBP BP-Mean 115 Respiration from ECG 26 SpO2 91 I&O: 12/07/19 12/08/19 12/09/19 06:59 06:59 06:59 Intake Total 2874 2764 Output Total 5953 2580 160 Balance -953 -1546 -160 Result Diagrams: 12/08/19 04:01 12/08/19 04:01 Additional Labs: Accuchecks 12/07/19 12/07/19 12/06/19 18:48 13:19 20:17 POC Glucose 181 H 120 H 193 H Nephrology ROS - Medication Medications: Active Medications Generic Name Dose Route Start Last Admin Trade Name Freq PRN Reason Stop Dose Admin Acetaminophen 650 mg 11/21/19 05:39 11/21/19 13:23 Tylenol [place] 650 mg Q6H PRN Administration Fever > 101 or Mild Pain Acetaminophen 650 mg 11/24/19 16:43 12/02/19 12:28 Tylenol Elixir PER TUBE 650 mg Q6H PRN Administration Fever > 100.3 Amlodipine Besylate 10 mg 12/06/19 21:00 12/07/19 19:27 Amlodipine 10 Mg Tab PO 10 mg 2100 JOSSY Administration Ascorbic Acid 1,000 mg 11/25/19 09:00 12/07/19 10:27 Vitamin C PO 1,000 mg DAILY JOSSY Administration Cholecalciferol 400 units 11/27/19 09:00 12/07/19 10:26 Vitamin D PER TUBE 400 units DAILY JOSSY Administration Clonidine 0.3 mg 11/23/19 13:00 12/07/19 15:58 Cbqoohtd-Jan-4 TD Not Given Q7D JOSSY Dextrose/Water 25 gm 11/21/19 04:06 11/21/19 04:21 Dextrose 50% SLOW IVP 25 gm PRN PRN Administration Hypoglycemia Enoxaparin Sodium 80 mg 11/25/19 21:00 12/07/19 19:22 Lovenox SC 80 mg 2100 JOSSY Administration Fluoxetine HCl 60 mg 11/22/19 09:00 12/07/19 10:26 Prozac PO 60 mg DAILY JOSSY Administration Furosemide 40 mg 12/06/19 09:00 12/07/19 19:21 Furosemide 40 Mg/4 Ml Vial SLOW IVP 40 mg BID JOSSY Administration Gabapentin 600 mg 11/21/19 15:00 12/07/19 19:27 Neurontin PO 600 mg TID JOSSY Administration Hydralazine HCl 100 mg 12/06/19 14:00 12/08/19 04:59 Hydralazine 25 Mg Tab PO 100 mg Q8H JOSSY Administration Nicardipine HCl 50 mg/ Sodium 250 mls @ 0 mls/hr 11/24/19 09:45 12/04/19 08:54 Chloride IV 250 mls INF JOSSY Administration Protocol As Directed Fluconazole/Sodium Chloride 100 mls @ 100 mls/hr 12/06/19 09:00 12/07/19 10:28 200 mg/ Device IVPB 100 mls DAILY JOSSY Administration Insulin Human Lispro 0 units 11/24/19 10:33 12/06/19 16:14 Humalog SC 4 unit .MODERATE SLIDING SC PRN Administration Moderate Correctional Scale Insulin Human NPH 30 unit 11/28/19 09:00 12/07/19 21:45 Humulin N SC 30 unit Q12HR JOSSY Administration Labetalol HCl 20 mg 12/01/19 19:47 12/03/19 23:46 Labetalol Hcl 100 Mg/20 Ml Vial IVPB 20 mg Q2H PRN Administration SBP > 180 Labetalol HCl 100 mg 12/07/19 14:00 12/08/19 04:58 Labetalol 100 Mg Tab PO 100 mg Q8HR JOSSY Administration Levothyroxine Sodium 100 mcg 11/22/19 06:00 12/08/19 04:59 Synthroid PO 100 mcg 0600 JOSSY Administration Losartan Potassium 100 mg 12/05/19 09:00 12/07/19 10:24 Losartan 25 Mg Tab PO 100 mg DAILY JOSSY Administration Methylprednisolone Sodium Succinate 80 mg 11/24/19 21:00 12/07/19 19:22 Solu-Medrol IVP 80 mg Q12HR JOSSY Administration Metolazone 5 mg 12/04/19 08:30 12/07/19 10:26 Metolazone 5 Mg Tab PO 5 mg 0830 JOSSY Administration Olanzapine 10 mg 11/23/19 21:00 12/07/19 19:28 Zyprexa PO 10 mg HS JOSSY Administration Pantoprazole Sodium 40 mg 12/03/19 21:00 12/07/19 19:25 Pantoprazole 40 Mg Vial IVP 40 mg Q12HR JOSSY Administration Propofol 1,000 mg 12/06/19 09:00 12/08/19 05:10 Propofol 1,000 Mg/100 Ml Vial IV 01/05/20 09:00 1,000 mg INF PRN Administration TO ACHIEVE GOAL RASS Protocol Sodium Bicarbonate 650 mg 11/30/19 15:00 12/07/19 19:27 Sodium Bicarbonate Tab 325 Mg Tab PO 650 mg TID JOSSY Administration Sodium Chloride 10 ml 11/25/19 09:00 12/07/19 19:28 Flush - Normal Saline IVF 10 ml Q12HR JOSSY Administration Spironolactone 100 mg 12/02/19 09:00 12/07/19 10:24 Spironolactone 100 Mg Tab PO 100 mg DAILY JOSSY Administration Vecuronium [place] 10 mg 12/06/19 10:41 12/06/19 22:14 Vecuronium 10 Mg Vial IV 10 mg Q1H PRN Administration AGITATION - Exam General - other findings: sedated ENT: normocephalic atraumatic ENT - other findings: Et tube is in place Respiratory - other findings: ventilatortransmitted sound noterd Cardiovascular: RRR Gastrointestinal: soft, non-distended, normal bowel sounds Extremities - other findings: Trace edema of upper limbs noted. Neurological - other findings: sedated Nephrology Results - Labs Result Diagrams: 12/08/19 04:01 12/08/19 04:01 Lab results: WBC 13.0 thou/uL (4.8-10.8) H 12/08/19 04:01 Hgb 10.4 g/dL (12.0-16.0) L 12/08/19 04:01 Hct 31.6 % (36.0-47.0) L 12/08/19 04:01 MCV 96.6 fL (78.0-98.0) 12/08/19 04:01 Plt Count 348 thou/uL (130-400) 12/08/19 04:01 Neutrophils % 87.4 % (42.0-75.0) H 11/21/19 01:12 Band Neuts % (Manual) 8 % (5-11) 12/08/19 04:01 ABG pH 7.50 (7.35-7.45) H 12/07/19 08:10 ABG pCO2 30.4 mmHg (35.0-45.0) L 12/07/19 08:10 ABG pO2 56.9 mmHg (> 80.0) L* 12/07/19 08:10 Sodium 144 mmol/L (136-145) 12/08/19 04:01 Potassium 5.0 mmol/L (3.5-5.1) 12/08/19 04:01 Chloride 104 mmol/L (98-107) 12/08/19 04:01 Carbon Dioxide 23 mmol/L (23-31) 12/08/19 04:01 BUN 93 mg/dL (9.8-20.1) H 12/08/19 04:01 Creatinine 1.90 mg/dL (0.6-1.1) H 12/08/19 04:01 Glucose 178 mg/dL (80-115) H 12/08/19 04:01 Lactic Acid 1.9 mmol/L (0.5-2.2) 11/21/19 01:12 Calcium 9.8 mg/dL (7.8-10.44) 12/08/19 04:01 Total Bilirubin 0.2 mg/dL (0.2-1.2) 12/08/19 04:01 AST 21 U/L (5-34) 12/08/19 04:01 ALT 12 U/L (8-55) 12/08/19 04:01 Alkaline Phosphatase 91 U/L (40-110) 12/08/19 04:01 Creatine Kinase 191 U/L (29-168) H 11/21/19 02:08 Troponin I 0.013 ng/mL (< 0.028) 11/21/19 01:12 C-Reactive Protein 10.70 mg/dL (= or < 0.5) H 12/03/19 13:04 B-Natriuretic Peptide 56.8 pg/mL (0-100) 11/21/19 01:12 Serum Total Protein 7.8 g/dL (6.0-8.3) 12/08/19 04:01 Albumin 3.1 g/dL (3.4-4.8) L 12/08/19 04:01 Urine Ketones Negative mg/dL (Negative) 12/02/19 14:20 Urine Blood Negative (Negative) 12/02/19 14:20 Urine Nitrite Negative (Negative) 12/02/19 14:20 Ur Leukocyte Esterase Negative Sarahy/uL (Negative) 12/02/19 14:20 Urine RBC 0-3 HPF (0-3) 12/02/19 14:20 Urine WBC 0-3 HPF (0-3) 12/02/19 14:20 Ur Squamous Epith Cells 0-3 HPF (0-3) 12/02/19 14:20 Urine Bacteria None Seen HPF (None Seen) 12/02/19 14:20 Nephrology AP PN - Plan ASSESSMENT: Hypertension. Poor control most likely related to rebound from inappropriate timing of medicatoions. BP control markely better with changes in BP med timing. Had low BP yesterday and antihypertensives were held intermittently. Clonidine patch also was not given. BP is currently up. Acute kidney injury due to hemodynamic factors, markedly improved. Creat is stable. Back to recent baseline Chronic kidney disease stage 3. Creat back to baseline Hypernatremia: Due to inadequate free water intake and lasix diuretic. Improving Fluid overload. Improving with diuretic. Hypoalbuminemia Metabolic acidosis. Improving with alkali therapy Primary hyperaldosteronism, on spironolactone. Septic shock, resolved. Staphylococcus bacteremia. Acute respiratory failure on the vent COVID pneumonia. Multifocal pneumonia. Right-sided pneumothorax. Acute anemia: Drop in Hb due to demodilution. Improved with diuretics. Presumed fungaemia given positive blood culture with yeast PLAN: Restart clonidine patch to avoid rebound HTN. Continue other antihypertensives Decrease free water flushes with correction of hypernatremia Continue diuretic therapy with metolazone and lasix. Continue spironolactone to 100 mg daily and monitor serum potassium Continue oral sodium bicarbonate. Antimicrobial as per ID.
[2019-12-08] MEDS: Losartan 25 MG TAB PO SCH (09:31)
[2019-12-08] MEDS: FLUoxetine HCl 20 MG CAP PO SCH (09:31)
[2019-12-08] MEDS: Gabapentin 300 MG CAP PO SCH ×3 (09:34→20:43)
--- NOTE | 2019-12-08 09:45 | RAD ---
CHEST 1 VIEW: Date: 12/08/2019 INDICATION: History of pneumonia. COMPARISON: Prior exam dated 12/07/2019. FINDINGS: Parenchymal opacity of the right lower lobe persists. Right-sided chest tube is unchanged. Gastric ca theter and ET tube is unchanged. Small bilateral pleural effusions persist. No pneumothorax is eviden t. IMPRESSION: Stable exam. POS: BH
[2019-12-08] MEDS: NPH, Human Insulin Isophane 300 UNIT/3 ML VIAL SC SCH ×2 (10:30→20:43)
[2019-12-08] MEDS: Spironolactone 100 MG TAB PO SCH (10:35)
[2019-12-08] MEDS: Sodium Bicarbonate Tab 325 MG TAB PO SCH ×3 (10:40→20:43)
--- NOTE | 2019-12-08 12:48 | PRG ---
DATE OF SERVICE: 12/08/2019 SUBJECTIVE: Ms. Mosqueda remains hemodynamically stable. She is still on bilevel ventilation. OBJECTIVE: VITAL SIGNS: Saturations running around 90%, heart rate is in the 90s, she is afebrile, blood pressure 143/102. LUNGS: Unchanged. HEART: Unchanged. ABDOMEN: Unchanged. LABORATORY DATA: White count 13, hemoglobin 10.4, platelets 348. Sodium 144, potassium 5, chloride 104, bicarb 23, BUN 92, creatinine 1.9. IMPRESSION: Respiratory failure associated with COVID pneumonia, clinically stable, but not improving rapidly. It is not surprising. We will continue supportive care. in a place where we could do the tracheostomy given her ongoing requirements for bilevel ventilation. She still has an air leak on the side of the chest tubes. Chest x-ray is essentially unchanged. PH 7.5, pCO2 of 30, pO2 of 56 yesterday. No blood gas today. We will continue to follow. CRITICAL CARE TIME: 30 minutes. Job ID: [id number]
[2019-12-08] MEDS: HumaLOG 300 UNITS/3 ML VIAL SC PRN ×2 (13:13→17:42)
--- NOTE | 2019-12-08 15:30 | PDOC.HOSPP ---
- Subjective Encounter Date: 12/08/19 Encounter Time: 15:15 Subjective: f/u for COVID PNA on Bi-level mech ventilation with FIO2 55%. Not weanable and no significant improvement. Receiving Solumedrol/Lovenox. Plan for trach/PEG early next week if no significant improvement. - Objective Vital Signs & Weight: Vital Signs (12 hours) Temp Pulse Resp BP Pulse Ox 12/08/19 14:36 89 159/114 H 12/08/19 14:09 90 169/114 H 12/08/19 14:08 90 152/105 H 12/08/19 12:00 26 H 12/08/19 10:02 90 152/105 H 12/08/19 10:00 26 H 12/08/19 08:00 99.2 F 26 H 100 12/08/19 07:02 87 139/98 H 12/08/19 06:00 26 H 12/08/19 04:00 98.7 F 26 H Weight Admit Weight 197 lb Weight 198 lb 13.711 oz Most Recent Monitor Data Heart Rate from ECG 91 NIBP 163/110 NIBP BP-Mean 127 Respiration from ECG 21 SpO2 89 I&O: 12/07/19 12/08/19 12/09/19 06:59 06:59 06:59 Intake Total 2874 8864 570 Output Total 7912 0035 1220 [facility] [place] [phone] Result Diagrams: 12/08/19 04:01 12/08/19 04:01 Additional Labs: Accuchecks 12/08/19 12/07/19 12:42 18:48 POC Glucose 154 H 181 H Microbiology 12/03/19 11:53 Stool Stool Occult Blood (MICHELLE) - Final 12/02/19 14:20 Venous blood - Left Hand Blood Culture - Preliminary Specimen has been received and culture in progress. No Growth to date. 12/02/19 14:20 Central Line - Left Subclavian Vein Blood Culture - Preliminary Yeast species Laboratory Tests 11/21/19 11/21/19 11/25/19 01:12 01:59 03:00 WBC Hgb D-Dimer 11.15 H Sodium Carbon Dioxide BUN Creatinine Ferritin C-Reactive Protein B-Natriuretic Peptide 56.8 Procalcitonin SARS-CoV-2 Rap RNA(RT-PCR) DETECTED A* 11/26/19 11/27/19 11/30/19 03:45 04:15 Unknown WBC 15.7 H Hgb 10.7 L D-Dimer 13.62 H 5.52 H Sodium Carbon Dioxide BUN Creatinine Ferritin C-Reactive Protein B-Natriuretic Peptide Procalcitonin SARS-CoV-2 Rap RNA(RT-PCR) 12/01/19 12/02/19 12/02/19 03:07 04:30 04:30 WBC 16.5 H 12.5 H Hgb 10.5 L 9.8 L D-Dimer Sodium 145 Carbon Dioxide BUN Creatinine 1.87 H Ferritin C-Reactive Protein B-Natriuretic Peptide Procalcitonin SARS-CoV-2 Rap RNA(RT-PCR) 12/03/19 12/03/19 12/03/19 04:30 04:30 08:17 WBC 13.1 H Hgb 8.8 L D-Dimer Sodium 150 H Carbon Dioxide BUN Creatinine 2.01 H Ferritin 607.18 H C-Reactive Protein B-Natriuretic Peptide Procalcitonin SARS-CoV-2 Rap RNA(RT-PCR) 12/03/19 12/03/19 12/03/19 13:04 13:04 13:04 WBC Hgb D-Dimer 2.78 H Sodium Carbon Dioxide BUN Creatinine Ferritin C-Reactive Protein 10.70 H B-Natriuretic Peptide Procalcitonin 0.88 SARS-CoV-2 Rap RNA(RT-PCR) 12/04/19 12/04/19 12/07/19 05:15 05:15 04:55 WBC 12.5 H Hgb 9.2 L D-Dimer Sodium 147 H Carbon Dioxide 22 L BUN 92 H Creatinine 2.00 H 1.85 H Ferritin C-Reactive Protein B-Natriuretic Peptide Procalcitonin SARS-CoV-2 Rap RNA(RT-PCR) Radiology Reviewed by me: Yes (PCXR - lines/tubes in place) EKG Reviewed by me: Yes (Tele - SR) Hospitalist ROS - Medication Medications: Active Medications Generic Name Dose Route Start Last Admin Trade Name Freq PRN Reason Stop Dose Admin Acetaminophen 650 mg 11/21/19 05:39 11/21/19 13:23 Tylenol OR 650 mg Q6H PRN Administration Fever > 101 or Mild Pain Acetaminophen 650 mg 11/24/19 16:43 12/02/19 12:28 Tylenol Elixir PER TUBE 650 mg Q6H PRN Administration Fever > 100.3 Amlodipine Besylate 10 mg 12/06/19 21:00 12/07/19 19:27 Amlodipine 10 Mg Tab PO 10 mg 2100 JOSSY Administration Ascorbic Acid 1,000 mg 11/25/19 09:00 12/08/19 09:30 Vitamin C PO 1,000 mg DAILY JOSSY Administration Cholecalciferol 400 units 11/27/19 09:00 12/08/19 09:30 Vitamin D PER TUBE 400 units DAILY JOSSY Administration Clonidine 0.3 mg 11/23/19 13:00 12/07/19 15:58 Dfzqodpm-Fux-9 TD Not Given Q7D JOSSY Dextrose/Water 25 gm 11/21/19 04:06 11/21/19 04:21 Dextrose 50% SLOW IVP 25 gm PRN PRN Administration Hypoglycemia Enoxaparin Sodium 80 mg 11/25/19 21:00 12/07/19 19:22 Lovenox SC 80 mg 2100 JOSSY Administration Fluoxetine HCl 60 mg 11/22/19 09:00 12/08/19 09:31 Prozac PO 60 mg DAILY JOSSY Administration Furosemide 40 mg 12/06/19 09:00 12/08/19 09:30 Furosemide 40 Mg/4 Ml Vial SLOW IVP 40 mg BID JOSSY Administration Gabapentin 600 mg 11/21/19 15:00 12/08/19 14:56 Neurontin PO 600 mg TID JOSSY Administration Hydralazine HCl 100 mg 12/06/19 14:00 12/08/19 14:08 Hydralazine 25 Mg Tab PO 100 mg Q8H JOSSY Administration Nicardipine HCl 50 mg/ Sodium 250 mls @ 0 mls/hr 11/24/19 09:45 12/04/19 08:5 4 Chloride IV 250 mls INF JOSSY Administration Protocol As Directed Fluconazole/Sodium Chloride 100 mls @ 100 mls/hr 12/06/19 09:00 12/08/19 09:27 200 mg/ Device IVPB 100 mls DAILY JOSSY Administration Insulin Human Lispro 0 units 11/24/19 10:33 12/08/19 13:13 Humalog SC 2 unit .MODERATE SLIDING SC PRN Administration Moderate Correctional Scale Insulin Human NPH 30 unit 11/28/19 09:00 12/08/19 10:30 Humulin N SC 30 unit Q12HR JOSSY Administration Labetalol HCl 20 mg 12/01/19 19:47 12/03/19 23:46 Labetalol Hcl 100 Mg/20 Ml Vial IVPB 20 mg Q2H PRN Administration SBP > 180 Labetalol HCl 100 mg 12/07/19 14:00 12/08/19 14:09 Labetalol 100 Mg Tab PO 100 mg Q8HR JOSSY Administration Levothyroxine Sodium 100 mcg 11/22/19 06:00 12/08/19 04:59 Synthroid PO 100 mcg 0600 JOSSY Administration Losartan Potassium 100 mg 12/05/19 09:00 12/08/19 09:31 Losartan 25 Mg Tab PO Not Given DAILY JOSSY Methylprednisolone Sodium Succinate 80 mg 11/24/19 21:00 12/08/19 09:28 Solu-Medrol IVP 80 mg Q12HR JOSSY Administration Metolazone 5 mg 12/04/19 08:30 12/08/19 09:30 Metolazone 5 Mg Tab PO 5 mg 0830 JOSSY Administration Olanzapine 10 mg 11/23/19 21:00 12/07/19 19:28 Zyprexa PO 10 mg HS JOSSY Administration Pantoprazole Sodium 40 mg 12/03/19 21:00 12/08/19 09:28 Pantoprazole 40 Mg Vial IVP 40 mg Q12HR JOSSY Administration Propofol 1,000 mg 12/06/19 09:00 12/08/19 12:21 Propofol 1,000 Mg/100 Ml Vial IV 01/05/20 09:00 1,000 mg INF PRN Administration TO ACHIEVE GOAL RASS Protocol Sodium Bicarbonate 650 mg 11/30/19 15:00 12/08/19 14:55 Sodium Bicarbonate Tab 325 Mg Tab PO 650 mg TID JOSSY Administration Sodium Chloride 10 ml 11/25/19 09:00 12/08/19 10:38 Flush - Normal Saline IVF 10 ml Q12HR JOSSY Administration Spironolactone 100 mg 12/02/19 09:00 12/08/19 10:35 Spironolactone 100 Mg Tab PO 100 mg DAILY JOSSY Administration Vecuronium [place] 10 mg 12/06/19 10:41 12/06/19 22:14 Vecuronium 10 Mg Vial IV 10 mg Q1H PRN Administration AGITATION - Exam General - other findings: sedate on mech vent Eye: PERRL ENT: normocephalic atraumatic, no oropharyngeal lesions ENT - other findings: ETT in place Neck: supple, symmetric, no JVD, no thyromegaly, no lymphadenopathy Heart: RRR, no gallops, no rubs, normal peripheral pulses Heart - other findings: S1, S2 Respiratory: rhonchi, tachypneic Respiratory - other findings: diminished in bases, CT's in place Gastrointestinal: soft, non-tender, non-distended, normal bowel sounds, no palpable masses Extremities: no cyanosis, 1+ LE edema Skin: normal turgor, no lesions Neurological - other findings: sedate on mech Psychiatric: somnolent, lethargic Hosp A/P (1) Pneumonia due to COVID-19 virus Code(s): U07.1 - COVID-19; J12.89 - OTHER VIRAL PNEUMONIA Status: Acute Plan: Persistent resp failure, vent dependent (2) Acute respiratory failure with hypoxia Code(s): J96.01 - ACUTE RESPIRATORY FAILURE WITH HYPOXIA Status: Acute Plan: Continue [facility] ventilation, likely trach early next week (3) Acute worsening of stage 3 chronic kidney disease Code(s): N18.3 - CHRONIC KIDNEY DISEASE, STAGE 3 (MODERATE) Status: Acute (4) Hyperaldosteronism Code(s): E26.9 - HYPERALDOSTERONISM, UNSPECIFIED Status: Chronic (5) Hypernatremia Code(s): E87.0 - HYPEROSMOLALITY AND HYPERNATREMIA Status: Acute Plan: Improved, continue current free-H2O 200ml q3h (6) DM type 2 (diabetes mellitus, type 2) Status: Chronic Qualifiers: Diabetes mellitus group home insulin use: with antique collector use (7) Hypertensive urgency Code(s): I16.0 - HYPERTENSIVE URGENCY Status: Acute Plan: Labile HTN persists, Nephrology adjusting regimen currently - Plan nursing home social worker, respiratory therapy, DVT proph w/SCDs Consults: Palliative Care Continue critical care support [facility] ventilation with Bi-level Likely will need trach next week if no significant improvement Continue Solumedrol Continue Lovenox Palliative care support AM lab: CMP, CBC, ABG PCXR in am
[2019-12-08] MEDS: Enoxaparin Sodium 80 MG/0.8 ML SYRINGE SC SCH (20:42)
[2019-12-08] MEDS: OLANZapine 5 MG TAB PO SCH (20:43)
[2019-12-08] MEDS: Amlodipine 10 MG TAB PO SCH (20:43)
[2019-12-09] MEDS: Propofol 1,000 MG/100 ML VIAL IV PRN (01:35)
[2019-12-09 05:05] LABS: ALT (SGPT) 10 U/L (8-55); AST (SGOT) 11 U/L (5-34); Albumin 3.2 g/dL (3.4-4.8); Alkaline Phosphatase 91 U/L (40-110); Anion Gap 20 mmol/L (10-20); BUN (Urea Nitrogen) 99 mg/dL (9.8-20.1); Band 8 % (5-11); Bilirubin, Total 0.4 mg/dL (0.2-1.2); Calc. Creatinine Clearance 42 mL/min (70-130); Calcium 9.4 mg/dL (7.8-10.44); Carbon Dioxide 25 mmol/L (23-31); Chloride 99 mmol/L (98-107); Estimated GFR-MDRD 32; Globulin 3.9 g/dL (2.4-3.5); Glucose 196 mg/dL (80-115); Hemoglobin 9.2 g/dL (12.0-16.0); Lymphocytes 5 % (21-51); MDiff Complete? YES; Mean Corpuscular HGB CONC 34.4 g/dL (32.0-36.0); Mean Corpuscular Hemoglobin 33.3 pg (27.0-31.0); Mean Corpuscular Volume 96.8 fL (78.0-98.0); Mean Platelet Volume 9.1 fL (7.4-10.4); Monocytes 2 % (0-10); Neutrophil 85 % (42-75); Platelet Count 358 thou/uL (130-400); Platelet Morphology Comment Appears Adequate; Potassium 3.8 mmol/L (3.5-5.1); Protein, Total 7.1 g/dL (6.0-8.3); RBC Distribution Width 15.3 % (11.5-14.5); Red Blood Cell (RBC) Count 2.77 mill/uL (4.20-5.40); Sodium 140 mmol/L (136-145); White Blood Cell (WBC) Count 16.1 thou/uL (4.8-10.8)
[2019-12-09] MEDS: Levothyroxine Sodium 100 MCG TAB PO SCH (05:52)
[2019-12-09] MEDS: hydrALAZINE 25 MG TAB PO SCH ×3 (05:52→22:10)
[2019-12-09] MEDS: Labetalol 100 MG TAB PO SCH ×3 (05:52→22:01)
[2019-12-09] MEDS: HumaLOG 300 UNITS/3 ML VIAL SC PRN ×3 (05:53→17:31)
--- NOTE | 2019-12-09 07:45 | RAD ---
Chest AP view INDICATION: Pneumonia COMPARISON: December 08, 2019 FINDINGS: Lungs: There is worsening airspace disease of the left lung and right lower lobe. Cardiac silhouette: The cardiomediastinal silhouette appears within normal limits. Pulmonary vasculature: Normal Pleural spaces: There is been interval development of a small right pneumothorax. Right-sided thorac ostomy tubes do not appear appreciably changed in position. Upper abdomen: No abnormality seen. Osseous structures: No acute osseous abnormality. Additional findings: ET tube and gastric catheter unchanged. IMPRESSION: Interval development of a small right pneumothorax. Worsening airspace disease of the left lung and r ight lower lobe. Right-sided thoracostomy tubes, ET tube and gastric catheter unchanged. Findings called to Nika Moreno RN at 7:42 AM on December 09, 2019.
--- NOTE | 2019-12-09 09:43 | PDOC.NEPPN ---
- Subjective Encounter Date: 12/09/19 Encounter Time: 09:42 Subjective: Seen in follow up for MOOK on CKD and HTN. Still intubated. - Objective Vital Signs & Weight: Vital Signs (12 hours) Temp Pulse Resp BP 12/09/19 08:00 26 H 12/09/19 07:09 88 143/96 H 12/09/19 06:00 26 H 12/09/19 04:00 99.5 F 89 26 H 12/09/19 02:00 26 H 12/09/19 00:00 100 F H 26 H 12/08/19 22:50 88 124/88 12/08/19 22:00 26 H Weight Admit Weight 197 lb Weight 195 lb 5.273 oz Most Recent Monitor Data Heart Rate from ECG 88 NIBP 143/104 NIBP BP-Mean 117 Respiration from ECG 26 SpO2 100 I&O: 12/08/19 12/09/19 12/10/19 06:59 06:59 06:59 Intake Total 2764 2307 Output Total 0023 3278 Balance -2555 -5806 Result Diagrams: 12/09/19 04:10 12/09/19 04:10 Additional Labs: Accuchecks 12/08/19 12/08/19 12/08/19 23:37 17:37 12:42 POC Glucose 165 H 247 H 154 H 12/07/19 21:59 POC Glucose 159 H Nephrology ROS - Medication Medications: Active Medications Generic Name Dose Route Start Last Admin Trade Name Freq PRN Reason Stop Dose Admin Acetaminophen 650 mg 11/21/19 05:39 11/21/19 13:23 Tylenol [place] 650 mg Q6H PRN Administration Fever > 101 or Mild Pain Acetaminophen 650 mg 11/24/19 16:43 12/02/19 12:28 Tylenol Elixir PER TUBE 650 mg Q6H PRN Administration Fever > 100.3 Amlodipine Besylate 10 mg 12/06/19 21:00 12/08/19 20:43 Amlodipine 10 Mg Tab PO 10 mg 2100 JOSSY Administration Ascorbic Acid 1,000 mg 11/25/19 09:00 12/08/19 09:30 Vitamin C PO 1,000 mg DAILY JOSSY Administration Cholecalciferol 400 units 11/27/19 09:00 12/08/19 09:30 Vitamin D PER TUBE 400 units DAILY JOSSY Administration Clonidine 0.3 mg 11/23/19 13:00 12/07/19 15:58 Ergjmowq-Tis-1 TD Not Given Q7D JOSSY Dextrose/Water 25 gm 11/21/19 04:06 11/21/19 04:21 Dextrose 50% SLOW IVP 25 gm PRN PRN Administration Hypoglycemia Enoxaparin Sodium 80 mg 11/25/19 21:00 12/08/19 20:42 Lovenox SC 80 mg 2100 JOSSY Administration Fluoxetine HCl 60 mg 11/22/19 09:00 12/08/19 09:31 Prozac PO 60 mg DAILY JOSSY Administration Furosemide 40 mg 12/06/19 09:00 12/08/19 20:42 Furosemide 40 Mg/4 Ml Vial SLOW IVP 40 mg BID JOSSY Administration Gabapentin 600 mg 11/21/19 15:00 12/08/19 20:43 Neurontin PO 600 mg TID JOSSY Administration Hydralazine HCl 100 mg 12/06/19 14:00 12/09/19 05:52 Hydralazine 25 Mg Tab PO 100 mg Q8H JOSSY Administration Nicardipine HCl 50 mg/ Sodium 250 mls @ 0 mls/hr 11/24/19 09:45 12/04/19 08:54 Chloride IV 250 mls INF JOSSY Administration Protocol As Directed Fluconazole/Sodium Chloride 100 mls @ 100 mls/hr 12/06/19 09:00 12/08/19 09:27 200 mg/ Device IVPB 100 mls DAILY JOSSY Administration Insulin Human Lispro 0 units 11/24/19 10:33 12/09/19 05:53 Humalog SC 2 unit .MODERATE SLIDING SC PRN Administration Moderate Correctional Scale Insulin Human NPH 30 unit 11/28/19 09:00 12/08/19 20:43 Humulin N SC 30 unit Q12HR JOSSY Administration Labetalol HCl 20 mg 12/01/19 19:47 12/03/19 23:46 Labetalol Hcl 100 Mg/20 Ml Vial IVPB 20 mg Q2H PRN Administration SBP > 180 Labetalol HCl 100 mg 12/07/19 14:00 12/09/19 05:52 Labetalol 100 Mg Tab PO 100 mg Q8HR JOSSY Administration Levothyroxine Sodium 100 mcg 11/22/19 06:00 12/09/19 05:52 Synthroid PO 100 mcg 0600 JOSSY Administration Losartan Potassium 100 mg 12/05/19 09:00 12/08/19 09:31 Losartan 25 Mg Tab PO Not Given DAILY JOSSY Methylprednisolone Sodium Succinate 80 mg 11/24/19 21:00 12/08/19 20:42 Solu-Medrol IVP 80 mg Q12HR JOSSY Administration Olanzapine 10 mg 11/23/19 21:00 12/08/19 20:43 Zyprexa PO 10 mg HS JOSSY Administration Pantoprazole Sodium 40 mg 12/03/19 21:00 12/08/19 20:42 Pantoprazole 40 Mg Vial IVP 40 mg Q12HR JOSSY Administration Propofol 1,000 mg 12/06/19 09:00 12/09/19 01:35 Propofol 1,000 Mg/100 Ml Vial IV 01/05/20 09:00 1,000 mg INF PRN Administration TO ACHIEVE GOAL RASS Protocol Sodium Bicarbonate 650 mg 11/30/19 15:00 12/08/19 20:43 Sodium Bicarbonate Tab 325 Mg Tab PO 650 mg TID JOSSY Administration Sodium Chloride 10 ml 11/25/19 09:00 12/08/19 20:44 Flush - Normal Saline IVF 10 ml Q12HR JOSSY Administration Spironolactone 100 mg 12/02/19 09:00 12/08/19 10:35 Spironolactone 100 Mg Tab PO 100 mg DAILY JOSSY Administration Vecuronium [place] 10 mg 12/06/19 10:41 12/06/19 22:14 Vecuronium 10 Mg Vial IV 10 mg Q1H PRN Administration AGITATION - Exam General - other findings: sedated ENT: normocephalic atraumatic ENT - other findings: ET tube in place Neck: symmetric, no JVD Respiratory - other findings: ventilator trnsmitted sound Cardiovascular: RRR Gastrointestinal: soft, non-distended, diminished bowl sounds Extremities - other findings: trace to mild upper limb edema Neurological - other findings: sedated Nephrology Results - Labs Result Diagrams: 12/09/19 04:10 12/09/19 04:10 Lab results: WBC 16.1 thou/uL (4.8-10.8) H 12/09/19 04:10 Hgb 9.2 g/dL (12.0-16.0) L 12/09/19 04:10 Hct 26.8 % (36.0-47.0) L 12/09/19 04:10 MCV 96.8 fL (78.0-98.0) 12/09/19 04:10 Plt Count 358 thou/uL (130-400) 12/09/19 04:10 Neutrophils % 87.4 % (42.0-75.0) H 11/21/19 01:12 Band Neuts % (Manual) 8 % (5-11) 12/09/19 04:10 ABG pH 7.50 (7.35-7.45) H 12/07/19 08:10 ABG pCO2 30.4 mmHg (35.0-45.0) L 12/07/19 08:10 ABG pO2 56.9 mmHg (> 80.0) L* 12/07/19 08:10 Sodium 140 mmol/L (136-145) 12/09/19 04:10 Potassium 3.8 mmol/L (3.5-5.1) 12/09/19 04:10 Chloride 99 mmol/L (98-107) 12/09/19 04:10 Carbon Dioxide 25 mmol/L (23-31) 12/09/19 04:10 BUN 99 mg/dL (9.8-20.1) H 12/09/19 04:10 Creatinine 1.88 mg/dL (0.6-1.1) H 12/09/19 04:10 Glucose 196 mg/dL (80-115) H 12/09/19 04:10 Lactic Acid 1.9 mmol/L (0.5-2.2) 11/21/19 01:12 Calcium 9.4 mg/dL (7.8-10.44) 12/09/19 04:10 Total Bilirubin 0.4 mg/dL (0.2-1.2) 12/09/19 04:10 AST 11 U/L (5-34) 12/09/19 04:10 ALT 10 U/L (8-55) 12/09/19 04:10 Alkaline Phosphatase 91 U/L (40-110) 12/09/19 04:10 Creatine Kinase 191 U/L (29-168) H 11/21/19 02:08 Troponin I 0.013 ng/mL (< 0.028) 11/21/19 01:12 C-Reactive Protein 10.70 mg/dL (= or < 0.5) H 09/19/20 13:04 B-Natriuretic Peptide 56.8 pg/mL (0-100) 11/21/19 01:12 Serum Total Protein 7.1 g/dL (6.0-8.3) 12/09/19 04:10 Albumin 3.2 g/dL (3.4-4.8) L 12/09/19 04:10 Urine Ketones Negative mg/dL (Negative) 12/02/19 14:20 Urine Blood Negative (Negative) 12/02/19 14:20 Urine Nitrite Negative (Negative) 12/02/19 14:20 Ur Leukocyte Esterase Negative Sarahy/uL (Negative) 12/02/19 14:20 Urine RBC 0-3 HPF (0-3) 12/02/19 14:20 Urine WBC 0-3 HPF (0-3) 12/02/19 14:20 Ur Squamous Epith Cells 0-3 HPF (0-3) 12/02/19 14:20 Urine Bacteria None Seen HPF (None Seen) 12/02/19 14:20 Nephrology AP PN - Plan ASSESSMENT: Hypertension. BP control better with changes in BP med timing. Acute kidney injury due to hemodynamic factors, markedly improved. Creat is stable but BUN is up. Elevated BUN is multifactorial related to catabolic state and use of steroid and diuretic. Chronic kidney disease stage 3. Creat back to baseline Hypernatremia: Due to inadequate free water intake and lasix diuretic. Resolved Fluid overload. Improving with diuretic. Hypoalbuminemia Metabolic acidosis. Improved with alkali therapy Primary hyperaldosteronism, on spironolactone. Septic shock, resolved. Staphylococcus bacteremia. Acute respiratory failure on the vent COVID pneumonia. Multifocal pneumonia. Right-sided pneumothorax. Acute anemia: Drop in Hb due to demodilution. Improved with diuretics. Presumed fungaemia given positive blood culture with yeast PLAN: DC Metolazone due to increasing BUN. Continue Lasix. Continue current antihypertensives. Restart losartan held yesterday Continue free water flushes Continue spironolactone to 100 mg daily and monitor serum potassium Continue oral sodium bicarbonate. Antimicrobial as per ID. Respiratory failure treatment as per Industrial Registered Nurse.
[2019-12-09] MEDS: Losartan 25 MG TAB PO SCH (10:00)
[2019-12-09] MEDS: Furosemide 40 MG/4 ML VIAL SLOW IVP SCH ×2 (10:00→22:02)
[2019-12-09] MEDS: FLUoxetine HCl 20 MG CAP PO SCH (10:00)
[2019-12-09] MEDS: Ascorbic Acid 500 mg Chewable Tablet PO SCH (10:01)
[2019-12-09] MEDS: methylPREDNISolone Sod Succ/PF 125 MG/2 ML VIAL IVP SCH ×2 (10:01→22:02)
[2019-12-09] MEDS: Pantoprazole 40 MG VIAL IVP SCH ×2 (10:02→22:04)
[2019-12-09] MEDS: Cholecalciferol (Vitamin D3) 400 UNITS TAB PER TUBE SCH (10:02)
[2019-12-09] MEDS: NPH, Human Insulin Isophane 300 UNIT/3 ML VIAL SC SCH ×2 (10:03→22:05)
[2019-12-09] MEDS: Fluconazole In NaCl,Iso-Osm 200 MG in Premix Bag 1 BAG IVPB SCH (10:24)
[2019-12-09] MEDS: Gabapentin 300 MG CAP PO SCH ×3 (10:25→22:02)
[2019-12-09] MEDS: Spironolactone 100 MG TAB PO SCH (10:25)
[2019-12-09] MEDS: Sodium Bicarbonate Tab 325 MG TAB PO SCH ×3 (10:26→22:01)
--- NOTE | 2019-12-09 15:00 | PRG ---
DATE OF SERVICE: 12/09/2019 SUBJECTIVE: The patient intubated in the ICU. She is taking her time to get out of the sedation. She tends to grimace her and open her eyes intermittently. Two chest tubes in place. OBJECTIVE: VITAL SIGNS: T-max 100. GENERAL: The central line was removed and a midline placed instead. HEENT: Pupils are constricted. Bilateral conjunctival hyperemia noted. Orotracheal intubation. LUNGS: Sounds were diminished on the right side as previously. HEART: S1 and S2 regular rate. ABDOMEN: Soft, not distended. Quevedo catheter in place. Balance has been negative throughout the past many days anywhere from 300 to 1500. EXTREMITIES: Quite flaccid. No movements were obtained even under stimulation. No reflexes either. LABORATORY DATA: White cell count is 16,000, hemoglobin 9.2, platelets 358, 85% neutrophils, and a chemistry with a creatinine of 1.88. Liver profile normal. Albumin 3.2. She had that organism of Lana albicans from blood culture from central line. ASSESSMENT AND DISCUSSION: Type 2 diabetes, Crohn disease, on periodic TNF inhibitor, chronic obstructive pulmonary disease, COVID pneumonia, methicillin-susceptible Staphylococcus aureus bacteremia probably from port removed, Lana albicans colonization of central line, which has been removed. To continue on Diflucan for a total of 21 days. No evidence of retinal disease or endophthalmitis. May need a tracheostomy, probably will need a tracheostomy. The patient is with COVID, seems to have identifiable cases of spontaneous pneumothorax beyond the usual risk factors, and the rate was not yet clear. This seems to be less than 2%, even patients with pneumothorax seem to have the same survival rates as the patient is without pneumothorax for the same stage of disease does not seem to be an additional poor prognostic indicator. She is still requiring high-level ventilatory support which is a poor prognostic indicator, and she is still on Medrol and fluconazole, and I do not see the staphylococcal agents. She will need to continue on the staphylococcal coverage. We will start cefazolin to complete course of treatment at least a total of 4 weeks. The end date of therapy was estimated to be around December 23. Job ID: [id number] MTDD
[2019-12-09] MEDS: CEFAZOLIN 2 GM in Premix Bag 1 BAG IVPB SCH (15:03)
--- NOTE | 2019-12-09 21:53 | PRG ---
DATE OF SERVICE: 12/09/2019 SUBJECTIVE: Ronda Mosqueda continues to be stable. We have decreased . She still has small pneumothorax and air leak. Her blood pressure fluctuates. OBJECTIVE: VITAL SIGNS: Heart rate is 103, her last blood pressure this evening was 163/112, respiratory rate is in the 30s. LUNGS: Unchanged. HEART: Unchanged. ABDOMEN: Unchanged. She is at a point where she can come off isolation. She is not at a point where we can probably safely put a trach in her, which will be the next step. LABORATORY DATA: White count 16.1, hemoglobin 9.2, platelets 358. Electrolytes are normal. Creatinine 1.88. IMPRESSION: 1. Respiratory failure with COVID pneumonia. 2. Qbbsu-sr-ssoyozd kidney disease. 3. Spontaneous pneumothorax with [address]. Hopefully, we can gradually decrease who have a better chance of lung inflating. Critical Care time 30 min. Job ID: [id number] MTDD
[2019-12-09] MEDS: Amlodipine 10 MG TAB PO SCH (22:02)
--- NOTE | 2019-12-09 22:02 | PDOC.HOSPP ---
- Subjective Encounter Date: 12/09/19 Encounter Time: 10:00 Subjective: Patient was seen and examined in bed. She is currently come off contact precautions No significant events overnight. Not much change in her general condition. - Objective Vital Signs & Weight: Vital Signs (12 hours) Temp Pulse Resp BP 12/09/19 18:43 95 12/09/19 18:00 26 H 12/09/19 16:00 99.4 F 90 26 H 146/100 H 12/09/19 14:58 97 157/124 H 12/09/19 14:56 97 157/124 H 12/09/19 14:00 27 H 12/09/19 12:00 98.9 F 26 H 12/09/19 10:56 87 155/103 H Weight Admit Weight 197 lb Weight 195 lb 5.273 oz Most Recent Monitor Data Heart Rate from ECG 103 NIBP 159/122 NIBP BP-Mean 134 Respiration from ECG 31 SpO2 94 I&O: 12/08/19 12/09/19 12/10/19 06:59 06:59 06:59 Intake Total 2764 2307 1168.4 Output Total 4310 3785 1440 Balance -1546 -1478 -271.6 Result Diagrams: 12/09/19 04:10 12/09/19 04:10 Additional Labs: Accuchecks 12/09/19 12/09/19 12/08/19 17:14 10:48 23:37 POC Glucose 302 H 177 H 165 H Hospitalist ROS - Medication Medications: Active Medications Generic Name Dose Route Start Last Admin Trade Name Freq PRN Reason Stop Dose Admin Acetaminophen 650 mg 11/21/19 05:39 11/21/19 13:23 Tylenol [place] 650 mg Q6H PRN Administration Fever > 101 or Mild Pain Acetaminophen 650 mg 11/24/19 16:43 12/02/19 12:28 Tylenol Elixir PER TUBE 650 mg Q6H PRN Administration Fever > 100.3 Amlodipine Besylate 10 mg 12/06/19 21:00 12/08/19 20:43 Amlodipine 10 Mg Tab PO 10 mg 2100 JOSSY Administration Ascorbic Acid 1,000 mg 11/25/19 09:00 12/09/19 10:01 Vitamin C PO 1,000 mg DAILY JOSSY Administration Cholecalciferol 400 units 11/27/19 09:00 12/09/19 10:02 Vitamin D PER TUBE 400 units DAILY JOSSY Administration Clonidine 0.3 mg 11/23/19 13:00 12/07/19 15:58 Monbaast-Iwl-7 TD Not Given Q7D JOSSY Dextrose/Water 25 gm 11/21/19 04:06 11/21/19 04:21 Dextrose 50% SLOW IVP 25 gm PRN PRN Administration Hypoglycemia Enoxaparin Sodium 80 mg 11/25/19 21:00 12/08/19 20:42 Lovenox SC 80 mg 2100 JOSSY Administration Fluoxetine HCl 60 mg 11/22/19 09:00 12/09/19 10:00 Prozac PO 60 mg DAILY JOSSY Administration Furosemide 40 mg 12/06/19 09:00 12/09/19 10:00 Furosemide 40 Mg/4 Ml Vial SLOW IVP 40 mg BID JOSSY Administration Gabapentin 600 mg 11/21/19 15:00 12/09/19 15:03 Neurontin PO 600 mg TID JOSSY Administration Hydralazine HCl 100 mg 12/06/19 14:00 12/09/19 14:56 Hydralazine 25 Mg Tab PO 100 mg Q8H JOSSY Administration Nicardipine HCl 50 mg/ Sodium 250 mls @ 0 mls/hr 11/24/19 09:45 12/04/19 08:54 Chloride IV 250 mls INF JOSSY Administration Protocol As Directed Fluconazole/Sodium Chloride 100 mls @ 100 mls/hr 12/06/19 09:00 12/09/19 10:24 200 mg/ Device IVPB 100 mls DAILY JOSSY Administration Cefazolin Sodium/Dextrose 2 gm 50 mls @ 100 mls/hr 12/09/19 15:00 12/09/19 15:03 / Device IVPB 50 mls 0300,1500 JOSSY Administration Insulin Human Lispro 0 units 11/24/19 10:33 12/09/19 17:31 Humalog SC 8 unit .MODERATE SLIDING SC PRN Administration Moderate Correctional Scale Insulin Human NPH 30 unit 11/28/19 09:00 12/09/19 10:03 Humulin N SC 30 unit Q12HR JOSSY Administration Labetalol HCl 20 mg 12/01/19 19:47 12/03/19 23:46 Labetalol Hcl 100 Mg/20 Ml Vial IVPB 20 mg Q2H PRN Administration SBP > 180 Labetalol HCl 100 mg 12/07/19 14:00 12/09/19 14:58 Labetalol 100 Mg Tab PO 100 mg Q8HR JOSSY Administration Levothyroxine Sodium 100 mcg 11/22/19 06:00 12/09/19 05:52 Synthroid PO 100 mcg 0600 JOSSY Administration Losartan Potassium 100 mg 12/05/19 09:00 12/09/19 10:00 Losartan 25 Mg Tab PO 100 mg DAILY JOSSY Administration Methylprednisolone Sodium Succinate 80 mg 11/24/19 21:00 12/09/19 10:01 Solu-Medrol IVP 80 mg Q12HR JOSSY Administration Olanzapine 10 mg 11/23/19 21:00 12/08/19 20:43 Zyprexa PO 10 mg HS JOSSY Administration Pantoprazole Sodium 40 mg 12/03/19 21:00 12/09/19 10:02 Pantoprazole 40 Mg Vial IVP 40 mg Q12HR JOSSY Administration Propofol 1,000 mg 12/06/19 09:00 12/09/19 01:35 Propofol 1,000 Mg/100 Ml Vial IV 01/05/20 09:00 1,000 mg INF PRN Administration TO ACHIEVE GOAL RASS Protocol Sodium Bicarbonate 650 mg 11/30/19 15:00 12/09/19 14:58 Sodium Bicarbonate Tab 325 Mg Tab PO 650 mg TID JOSSY Administration Sodium Chloride 10 ml 11/25/19 09:00 12/09/19 10:04 Flush - Normal Saline IVF 10 ml Q12HR JOSSY Administration Spironolactone 100 mg 12/02/19 09:00 12/09/19 10:25 Spironolactone 100 Mg Tab PO 100 mg DAILY JOSSY Administration Vecuronium [place] 10 mg 12/06/19 10:41 12/06/19 22:14 Vecuronium 10 Mg Vial IV 10 mg Q1H PRN Administration AGITATION - Exam General - other findings: Patient on vent support. Heart - other findings: S1-S2 present. No murmurs gallops or rubs. Respiratory - other findings: Coarse breath sounds bilaterally. Gastrointestinal - other findings: Soft, no organomegaly. Extremities: 1+ LE edema Hosp A/P - Plan 64-year-old female patient admitted in the ICU on ventilator support on account of acute hypoxic respiratory failure with COVID pneumonia. Also has Staphylococcus bacteremia and hypertension. Continue management in CCU. Generally stable. No significant improvement however no deterioration. Currently taking of contact COVID precautions. Given duration on ventilator plan to consider trach and PEG. Acute hypoxic respiratory failure Secondary to COVID pneumonia Continue ventilator management Ongoing on ventilator. Pulmonology following. Right pneumothorax Chest tubes in place. COVID pneumonia Continues anticoagulation Also on steroids. Continue close monitoring. 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 Hypertensionimproved Was on nicardipine dripcurrently discontinued Continue blood pressure medications and monitoring. Nephrology following. Hyperglycemiaimproved. Blood sugar controlled on NPH 30 every 12 Moderate correctional sliding scale. Continue close monitoring. Hypothyroidism Continue levothyroxine VTE prophylaxistherapeutic: Lovenox Dispositionpending improvement. Prognosis is generally poor.
[2019-12-09] MEDS: Enoxaparin Sodium 80 MG/0.8 ML SYRINGE SC SCH (22:03)
[2019-12-09] MEDS: OLANZapine 5 MG TAB PO SCH (22:04)
[2019-12-10] MEDS: Propofol 1,000 MG/100 ML VIAL IV PRN (01:50)
[2019-12-10] MEDS: Labetalol HCl 100 MG/20 ML VIAL IVPB PRN (02:11)
[2019-12-10] MEDS: CEFAZOLIN 2 GM in Premix Bag 1 BAG IVPB SCH ×2 (02:11→14:40)
[2019-12-10] MEDS ORDERED: Labetalol 100 MG TAB PO SCH (06:30)
--- NOTE | 2019-12-10 06:31 | PDOC.NEPPN ---
- Subjective Encounter Date: 12/10/19 Subjective: Still intubated and mechanically ventilated. Sedatives were weaned down associated with elevation of BP, RR and HR rate. Sedatives were restarted with some improvement - Objective Vital Signs & Weight: Vital Signs (12 hours) Temp Pulse Resp BP Pulse Ox 12/10/19 04:00 99.9 F H 29 H 12/10/19 02:11 102 H 170/115 H 12/10/19 02:00 27 H 12/10/19 01:20 102 H 12/10/19 01:00 99.1 F 12/10/19 00:00 29 H 12/09/19 23:14 93 12/09/19 22:10 106 H 168/110 H 12/09/19 22:02 106 H 168/110 H 12/09/19 22:01 106 H 168/110 H 12/09/19 22:00 27 H 12/09/19 20:00 99.5 F 32 H 96 12/09/19 18:43 95 Weight Admit Weight 197 lb Weight 195 lb 5.273 oz Most Recent Monitor Data Heart Rate from ECG 105 NIBP 144/110 NIBP BP-Mean 121 Respiration from ECG 28 SpO2 94 I&O: 12/08/19 12/09/19 12/10/19 06:59 06:59 06:59 Intake Total 2764 2307 1628.4 Output Total 1891 7786 2815 [facility] -1546 -1478 -1186.6 Result Diagrams: 12/09/19 04:10 12/10/19 07:05 Additional Labs: Accuchecks 12/09/19 12/09/19 12/09/19 22:07 17:14 10:48 POC Glucose 200 H 302 H 177 H Nephrology ROS - Medication Medications: Active Medications Generic Name Dose Route Start Last Admin Trade Name Freq PRN Reason Stop Dose Admin Acetaminophen 650 mg 11/21/19 05:39 11/21/19 13:23 Tylenol [place] 650 mg Q6H PRN Administration Fever > 101 or Mild Pain Acetaminophen 650 mg 11/24/19 16:43 12/02/19 12:28 Tylenol Elixir PER TUBE 650 mg Q6H PRN Administration Fever > 100.3 Amlodipine Besylate 10 mg 12/06/19 21:00 12/09/19 22:02 Amlodipine 10 Mg Tab PO 10 mg 2100 JOSSY Administration Ascorbic Acid 1,000 mg 11/25/19 09:00 12/09/19 10:01 Vitamin C PO 1,000 mg DAILY JOSSY Administration Cholecalciferol 400 units 11/27/19 09:00 12/09/19 10:02 Vitamin D PER TUBE 400 units DAILY JOSSY Administration Clonidine 0.3 mg 11/23/19 13:00 12/07/19 15:58 Domiyhsy-Xvl-8 TD Not Given Q7D JOSSY Dextrose/Water 25 gm 11/21/19 04:06 11/21/19 04:21 Dextrose 50% SLOW IVP 25 gm PRN PRN Administration Hypoglycemia Enoxaparin Sodium 80 mg 11/25/19 21:00 12/09/19 22:03 Lovenox SC 80 mg 2100 JOSSY Administration Fluoxetine HCl 60 mg 11/22/19 09:00 12/09/19 10:00 Prozac PO 60 mg DAILY JOSSY Administration Furosemide 40 mg 12/06/19 09:00 12/09/19 22:02 Furosemide 40 Mg/4 Ml Vial SLOW IVP 40 mg BID JOSSY Administration Gabapentin 600 mg 11/21/19 15:00 12/09/19 22:02 Neurontin PO 600 mg TID JOSSY Administration Hydralazine HCl 100 mg 12/06/19 14:00 12/09/19 22:10 Hydralazine 25 Mg Tab PO 100 mg Q8H JOSSY Administration Nicardipine HCl 50 mg/ Sodium 250 mls @ 0 mls/hr 11/24/19 09:45 12/04/19 08:54 Chloride IV 250 mls INF JOSSY Administration Protocol As Directed Fluconazole/Sodium Chloride 100 mls @ 100 mls/hr 12/06/19 09:00 12/09/19 10:24 200 mg/ Device IVPB 100 mls DAILY JOSSY Administration Cefazolin Sodium/Dextrose 2 gm 50 mls @ 100 mls/hr 12/09/19 15:00 12/10/19 02:11 / Device IVPB 50 mls 0300,1500 JOSSY Administration Insulin Human Lispro 0 units 11/24/19 10:33 12/09/19 17:31 Humalog SC 8 unit .MODERATE SLIDING SC PRN Administration Moderate Correctional Scale Insulin Human NPH 30 unit 11/28/19 09:00 12/09/19 22:05 Humulin N SC 30 unit Q12HR JOSSY Administration Labetalol HCl 20 mg 12/01/19 19:47 12/10/19 02:11 Labetalol Hcl 100 Mg/20 Ml Vial IVPB 20 mg Q2H PRN Administration SBP > 180 Levothyroxine Sodium 100 mcg 11/22/19 06:00 12/09/19 05:52 Synthroid PO 100 mcg 0600 JOSSY Administration Losartan Potassium 100 mg 12/05/19 09:00 12/09/19 10:00 Losartan 25 Mg Tab PO 100 mg DAILY JOSSY Administration Methylprednisolone Sodium Succinate 80 mg 11/24/19 21:00 12/09/19 22:02 Solu-Medrol IVP 80 mg Q12HR JOSSY Administration Olanzapine 10 mg 11/23/19 21:00 12/09/19 22:04 Zyprexa PO 10 mg HS JOSSY Administration Pantoprazole Sodium 40 mg 12/03/19 21:00 12/09/19 22:04 Pantoprazole 40 Mg Vial IVP 40 mg Q12HR JOSSY Administration Propofol 1,000 mg 12/06/19 09:00 12/10/19 01:50 Propofol 1,000 Mg/100 Ml Vial IV 01/05/20 09:00 1,000 mg INF PRN Administration TO ACHIEVE GOAL RASS Protocol Sodium Bicarbonate 650 mg 11/30/19 15:00 12/09/19 22:01 Sodium Bicarbonate Tab 325 Mg Tab PO 650 mg TID JOSSY Administration Sodium Chloride 10 ml 11/25/19 09:00 12/09/19 22:06 Flush - Normal Saline IVF 10 ml Q12HR JOSSY Administration Spironolactone 100 mg 12/02/19 09:00 12/09/19 10:25 Spironolactone 100 Mg Tab PO 100 mg DAILY JOSSY Administration Vecuronium [place] 10 mg 12/06/19 10:41 12/06/19 22:14 Vecuronium 10 Mg Vial IV 10 mg Q1H PRN Administration AGITATION - Exam General - other findings: Sedated ENT: normocephalic atraumatic ENT - other findings: ET tube is place Respiratory: tachypneic Respiratory - other findings: ventilator transmitted sound noted Cardiovascular: RRR Heart - other findings: tachycardic Gastrointestinal: soft, non-distended, diminished bowl sounds Extremities - other findings: trace to mild edema of the hands noted Neurological - other findings: sedated Nephrology Results - Labs Result Diagrams: 12/09/19 04:10 12/10/19 07:05 Lab results: WBC 16.1 thou/uL (4.8-10.8) H 12/09/19 04:10 Hgb 9.2 g/dL (12.0-16.0) L 12/09/19 04:10 Hct 26.8 % (36.0-47.0) L 12/09/19 04:10 MCV 96.8 fL (78.0-98.0) 12/09/19 04:10 Plt Count 358 thou/uL (130-400) 12/09/19 04:10 Neutrophils % 87.4 % (42.0-75.0) H 11/21/19 01:12 Band Neuts % (Manual) 8 % (5-11) 12/09/19 04:10 ABG pH 7.50 (7.35-7.45) H 12/07/19 08:10 ABG pCO2 30.4 mmHg (35.0-45.0) L 12/07/19 08:10 ABG pO2 56.9 mmHg (> 80.0) L* 12/07/19 08:10 Sodium 140 mmol/L (136-145) 12/09/19 04:10 Potassium 3.8 mmol/L (3.5-5.1) 12/09/19 04:10 Chloride 99 mmol/L (98-107) 12/09/19 04:10 Carbon Dioxide 25 mmol/L (23-31) 12/09/19 04:10 BUN 99 mg/dL (9.8-20.1) H 12/09/19 04:10 Creatinine 1.88 mg/dL (0.6-1.1) H 12/09/19 04:10 Glucose 196 mg/dL (80-115) H 12/09/19 04:10 Lactic Acid 1.9 mmol/L (0.5-2.2) 11/21/19 01:12 Calcium 9.4 mg/dL (7.8-10.44) 12/09/19 04:10 Total Bilirubin 0.4 mg/dL (0.2-1.2) 12/09/19 04:10 AST 11 U/L (5-34) 12/09/19 04:10 ALT 10 U/L (8-55) 12/09/19 04:10 Alkaline Phosphatase 91 U/L (40-110) 12/09/19 04:10 Creatine Kinase 191 U/L (29-168) H 11/21/19 02:08 Troponin I 0.013 ng/mL (< 0.028) 11/21/19 01:12 C-Reactive Protein 10.70 mg/dL (= or < 0.5) H 12/03/19 13:04 B-Natriuretic Peptide 56.8 pg/mL (0-100) 11/21/19 01:12 Serum Total Protein 7.1 g/dL (6.0-8.3) 12/09/19 04:10 Albumin 3.2 g/dL (3.4-4.8) L 12/09/19 04:10 Urine Ketones Negative mg/dL (Negative) 12/02/19 14:20 Urine Blood Negative (Negative) 12/02/19 14:20 Urine Nitrite Negative (Negative) 12/02/19 14:20 Ur Leukocyte Esterase Negative Sarahy/uL (Negative) 12/02/19 14:20 Urine RBC 0-3 HPF (0-3) 12/02/19 14:20 Urine WBC 0-3 HPF (0-3) 12/02/19 14:20 Ur Squamous Epith Cells 0-3 HPF (0-3) 12/02/19 14:20 Urine Bacteria None Seen HPF (None Seen) 12/02/19 14:20 Nephrology AP PN - Plan ASSESSMENT: Acute kidney injury due to hemodynamic factors. Acute increase in creat most likely due to diuretic +/- ARB Hypertension. BP control better. Still fluctuating depending on sedation level. Went up yesterday with weaning of sedation Chronic kidney disease stage 3. Hypernatremia: Resolved Fluid overload. Improving with diuretic. Hypoalbuminemia. Improved Metabolic acidosis. Improved with alkali therapy Primary hyperaldosteronism, on spironolactone. Septic shock, resolved. Staphylococcus bacteremia. Acute respiratory failure on the vent COVID pneumonia. Multifocal pneumonia. Right-sided pneumothorax. Anemia: Drop in Hb due to hemodilution. Improved with diuretics. Presumed fungemia given positive blood culture with yeast PLAN: Increase labetalol to 200 q8h. Restart isosorbide and hold losartan due to acute increase in creat Hold lasix due to increase in creat and BUN Continue free water flushes Continue spironolactone and monitor serum potassium Continue oral sodium bicarbonate. Antimicrobial as per ID. Respiratory failure treatment as per [employer].
[2019-12-10] MEDS: hydrALAZINE 25 MG TAB PO SCH ×3 (07:00→22:25)
[2019-12-10] MEDS: Levothyroxine Sodium 100 MCG TAB PO SCH (07:00)
[2019-12-10] MEDS: Labetalol 100 MG TAB PO SCH ×3 (07:20→22:25)
[2019-12-10 07:49] LABS: ALT (SGPT) 11 U/L (8-55); AST (SGOT) 14 U/L (5-34); Albumin 3.6 g/dL (3.4-4.8); Alkaline Phosphatase 106 U/L (40-110); Anion Gap 22 mmol/L (10-20); BUN (Urea Nitrogen) 111 mg/dL (9.8-20.1); Bilirubin, Total 0.4 mg/dL (0.2-1.2); Calc. Creatinine Clearance 37 mL/min (70-130); Calcium 10.2 mg/dL (7.8-10.44); Carbon Dioxide 24 mmol/L (23-31); Chloride 97 mmol/L (98-107); Estimated GFR-MDRD 28; Globulin 4.4 g/dL (2.4-3.5); Glucose 279 mg/dL (80-115); Potassium 3.8 mmol/L (3.5-5.1); Sodium 139 mmol/L (136-145)
[2019-12-10] MEDS ORDERED: Isosorbide Dinitrate 5 MG TAB PO SCH (08:15)
[2019-12-10 08:19] LABS: Band 7 % (5-11); Hemoglobin 12.7 g/dL (12.0-16.0); Lymphocytes 5 % (21-51); MDiff Complete? YES; Mean Corpuscular Hemoglobin 32.3 pg (27.0-31.0); Mean Corpuscular Volume 97.7 fL (78.0-98.0); Mean Platelet Volume 8.7 fL (7.4-10.4); Monocytes 2 % (0-10); Neutrophil 86 % (42-75); Platelet Count 387 thou/uL (130-400); RBC Distribution Width 15.5 % (11.5-14.5); Red Blood Cell (RBC) Count 3.94 mill/uL (4.20-5.40); White Blood Cell (WBC) Count 16.8 thou/uL (4.8-10.8)
[2019-12-10] MEDS: FLUoxetine HCl 20 MG CAP PO SCH (08:39)
[2019-12-10] MEDS: Sodium Bicarbonate Tab 325 MG TAB PO SCH ×3 (08:39→22:14)
[2019-12-10] MEDS: Ascorbic Acid 500 mg Chewable Tablet PO SCH (08:40)
[2019-12-10] MEDS: Fluconazole In NaCl,Iso-Osm 200 MG in Premix Bag 1 BAG IVPB SCH (08:40)
[2019-12-10] MEDS: methylPREDNISolone Sod Succ/PF 125 MG/2 ML VIAL IVP SCH ×2 (08:40→22:13)
[2019-12-10] MEDS: Cholecalciferol (Vitamin D3) 400 UNITS TAB PER TUBE SCH (08:41)
[2019-12-10] MEDS: Spironolactone 100 MG TAB PO SCH (08:42)
[2019-12-10] MEDS: Pantoprazole 40 MG VIAL IVP SCH ×2 (08:43→22:13)
[2019-12-10] MEDS: Gabapentin 300 MG CAP PO SCH ×3 (08:47→22:14)
[2019-12-10] MEDS: NPH, Human Insulin Isophane 300 UNIT/3 ML VIAL SC SCH ×2 (08:51→22:15)
--- NOTE | 2019-12-10 10:33 | RAD ---
CHEST 1 VIEW: Date: 12/10/2019 INDICATION: History of pneumonia. COMPARISON: Prior exam dated 12/09/2019. FINDINGS/IMPRESSION: Right apical pneumothorax appears slightly more prominent. Right-sided thoracostomy tubes are unchang ed. Right basilar air space disease is similar appearing. Patient remains intubated with gastric cath eter placement. Visualized left lung is clear. POS: BH
[2019-12-10] MEDS: HumaLOG 300 UNITS/3 ML VIAL SC PRN ×2 (12:10→16:44)
[2019-12-10] MEDS: Isosorbide Dinitrate 20 MG TAB PO SCH ×2 (14:43→22:25)
--- NOTE | 2019-12-10 15:20 | PDOC.HOSPP ---
- Subjective Encounter Date: 12/10/19 Encounter Time: 12:00 Subjective: Patient was seen and examined in bed. She was still on vent with changes made this morning. General condition has been stable with no improvement or deterioration. - Objective Vital Signs & Weight: Vital Signs (12 hours) Temp Pulse Resp BP Pulse Ox 12/10/19 14:39 101 H 146/107 H 12/10/19 12:00 99.5 F 27 H 12/10/19 11:19 101 H 146/107 H 12/10/19 10:00 28 H 12/10/19 08:00 99.9 F H 28 H 96 12/10/19 07:20 107 H 168/120 H 12/10/19 07:17 106 H 168/120 H 12/10/19 07:01 107 H 168/120 H 12/10/19 07:00 107 H 168/120 H 12/10/19 06:00 27 H 12/10/19 04:00 99.9 F H 29 H Weight Admit Weight 197 lb Weight 196 lb 10.437 oz Most Recent Monitor Data Heart Rate from ECG 98 NIBP 146/112 NIBP BP-Mean 123 Respiration from ECG 20 SpO2 95 I&O: 12/09/19 12/10/19 12/11/19 06:59 06:59 06:59 Intake Total 2307 1850.2 720 Output Total 3785 2915 500 Balance -1478 -1064.8 220 Result Diagrams: 12/10/19 07:05 12/10/19 07:05 Additional Labs: Accuchecks 12/09/19 12/09/19 22:07 17:14 POC Glucose 200 H 302 H Hospitalist ROS - Medication Medications: Active Medications Generic Name Dose Route Start Last Admin Trade Name Freq PRN Reason Stop Dose Admin Acetaminophen 650 mg 11/21/19 05:39 11/21/19 13:23 Tylenol [place] 650 mg Q6H PRN Administration Fever > 101 or Mild Pain Acetaminophen 650 mg 11/24/19 16:43 12/02/19 12:28 Tylenol Elixir PER TUBE 650 mg Q6H PRN Administration Fever > 100.3 Amlodipine Besylate 10 mg 12/06/19 21:00 12/09/19 22:02 Amlodipine 10 Mg Tab PO 10 mg 2100 JOSSY Administration Ascorbic Acid 1,000 mg 11/25/19 09:00 12/10/19 08:40 Vitamin C PO 1,000 mg DAILY JOSSY Administration Cholecalciferol 400 units 11/27/19 09:00 12/10/19 08:41 Vitamin D PER TUBE 400 units DAILY JOSSY Administration Clonidine 0.3 mg 11/23/19 13:00 12/07/19 15:58 Mxhmlpsw-Ful-5 TD Not Given Q7D JOSSY Dextrose/Water 25 gm 11/21/19 04:06 11/21/19 04:21 Dextrose 50% SLOW IVP 25 gm PRN PRN Administration Hypoglycemia Enoxaparin Sodium 80 mg 11/25/19 21:00 12/09/19 22:03 Lovenox SC 80 mg 2100 JOSSY Administration Fluoxetine HCl 60 mg 11/22/19 09:00 12/10/19 08:39 Prozac PO 60 mg DAILY JOSSY Administration Furosemide 40 mg 12/06/19 09:00 12/09/19 22:02 Furosemide 40 Mg/4 Ml Vial SLOW IVP 40 mg BID JOSSY Administration Gabapentin 600 mg 11/21/19 15:00 12/10/19 14:40 Neurontin PO 600 mg TID JOSSY Administration Hydralazine HCl 100 mg 12/06/19 14:00 12/10/19 14:39 Hydralazine 25 Mg Tab PO 100 mg Q8H JOSSY Administration Nicardipine HCl 50 mg/ Sodium 250 mls @ 0 mls/hr 11/24/19 09:45 12/04/19 08:54 Chloride IV 250 mls INF JOSSY Administration Protocol As Directed Fluconazole/Sodium Chloride 100 mls @ 100 mls/hr 12/06/19 09:00 12/10/19 08:40 200 mg/ Device IVPB 100 mls DAILY JOSSY Administration Cefazolin Sodium/Dextrose 2 gm 50 mls @ 100 mls/hr 12/09/19 15:00 12/10/19 14:40 / Device IVPB 50 mls 0300,1500 JOSSY Administration Insulin Human Lispro 0 units 11/24/19 10:33 12/10/19 12:10 Humalog SC 6 unit .MODERATE SLIDING SC PRN Administration Moderate Correctional Scale Insulin Human NPH 30 unit 11/28/19 09:00 12/10/19 08:51 Humulin N SC 30 unit Q12HR JOSSY Administration Isosorbide Dinitrate 20 mg 12/10/19 14:00 12/10/19 14:43 Isosorbide Dinitrate 20 Mg Tab PO 20 mg Q8H JOSSY Administration Labetalol HCl 20 mg 12/01/19 19:47 12/10/19 02:11 Labetalol Hcl 100 Mg/20 Ml Vial IVPB 20 mg Q2H PRN Administration SBP > 180 Labetalol HCl 200 mg 12/10/19 14:00 12/10/19 14:39 Labetalol 100 Mg Tab PO 200 mg Q8HR JOSSY Administration Levothyroxine Sodium 100 mcg 11/22/19 06:00 12/10/19 07:00 Synthroid PO 100 mcg 0600 JOSSY Administration Losartan Potassium 100 mg 12/05/19 09:00 12/09/19 10:00 Losartan 25 Mg Tab PO 100 mg DAILY JOSSY Administration Methylprednisolone Sodium Succinate 80 mg 11/24/19 21:00 12/10/19 08:40 Solu-Medrol IVP 80 mg Q12HR JOSSY Administration Olanzapine 10 mg 11/23/19 21:00 12/09/19 22:04 Zyprexa PO 10 mg HS JOSSY Administration Pantoprazole Sodium 40 mg 12/03/19 21:00 12/10/19 08:43 Pantoprazole 40 Mg Vial IVP 40 mg Q12HR JOSSY Administration Propofol 1,000 mg 12/06/19 09:00 12/10/19 01:50 Propofol 1,000 Mg/100 Ml Vial IV 01/05/20 09:00 1,000 mg INF PRN Administration TO ACHIEVE GOAL RASS Protocol Sodium Bicarbonate 650 mg 11/30/19 15:00 12/10/19 08:39 Sodium Bicarbonate Tab 325 Mg Tab PO 650 mg TID JOSSY Administration Sodium Chloride 10 ml 11/25/19 09:00 12/10/19 09:06 Flush - Normal Saline IVF 10 ml Q12HR JOSSY Administration Spironolactone 100 mg 12/02/19 09:00 12/10/19 08:42 Spironolactone 100 Mg Tab PO 100 mg DAILY JOSSY Administration Vecuronium [place] 10 mg 12/06/19 10:41 12/06/19 22:14 Vecuronium 10 Mg Vial IV 10 mg Q1H PRN Administration AGITATION - Exam General - other findings: In bed, on ventilator support, not following commands Heart - other findings: S1-S2 present and normal. No murmurs gallops or rubs. Respiratory - other findings: Carotid breath sounds bilaterally. Gastrointestinal - other findings: Soft, no masses. Extremities - other findings: Bilateral pitting pedal edema. Hosp A/P - Plan 64-year-old female patient admitted in the ICU on ventilator support on account of acute hypoxic respiratory failure with COVID pneumonia. Also has Staphylococcus bacteremia and hypertension. Continue management in CCU. Generally stable. No significant improvement however no deterioration. Currently taking of contact COVID precautions. Given duration on ventilator plan to consider trach and PEG next week. Acute hypoxic respiratory failure Secondary to COVID pneumonia Continue ventilator management Ongoing on ventilator. Started on Precedex today Pulmonology following. Right pneumothorax Chest tubes in place. COVID pneumonia Continues anticoagulation Also on steroids. Continue close monitoring. 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 Hypertensionimproved Was on nicardipine dripcurrently discontinued Continue blood pressure medications and monitoring. Nephrology following. Hyperglycemiaimproved. Blood sugar controlled on NPH 30 every 12 Moderate correctional sliding scale. Continue close monitoring. Hypothyroidism Continue levothyroxine VTE prophylaxistherapeutic: Lovenox Dispositionpending improvement. Prognosis is generally poor. Planning for trach and PEG next week.
--- NOTE | 2019-12-10 16:16 | PRG ---
DATE OF SERVICE: 12/10/2019 SUBJECTIVE: Ms. Mosqueda is still mechanically ventilated. We have held her sedation this morning. She is slow to arouse, so we will try switching her back to Precedex and keep her off sedation protocol. OBJECTIVE: LUNGS: Unchanged. HEART: Unchanged. ABDOMEN: Unchanged. I have decreased her ventilatory rate, decreased her ventilatory support a little bit today. We can get her down to a lower PEEP and less dependent on bilevel ventilation volume ventilation by early next week. Consider tracheostomy. She still has an air leak. Chest x-ray still shows diffuse infiltrates and small pneumothorax on the right. Continue current supportive care. Job ID: [id number]
[2019-12-10] MEDS: Enoxaparin Sodium 80 MG/0.8 ML SYRINGE SC SCH (22:12)
[2019-12-10] MEDS: OLANZapine 5 MG TAB PO SCH (22:13)
[2019-12-10] MEDS: Amlodipine 10 MG TAB PO SCH (22:14)
[2019-12-11] MEDS: CEFAZOLIN 2 GM in Premix Bag 1 BAG IVPB SCH (03:43)
[2019-12-11 04:39] LABS: ALT (SGPT) 7 U/L (8-55); AST (SGOT) 12 U/L (5-34); Albumin 3.1 g/dL (3.4-4.8); Alkaline Phosphatase 90 U/L (40-110); Anion Gap 19 mmol/L (10-20); BUN (Urea Nitrogen) 109 mg/dL (9.8-20.1); Bilirubin, Total 0.4 mg/dL (0.2-1.2); Calc. Creatinine Clearance 41 mL/min (70-130); Calcium 9.5 mg/dL (7.8-10.44); Carbon Dioxide 24 mmol/L (23-31); Chloride 99 mmol/L (98-107); Estimated GFR-MDRD 32; Globulin 3.7 g/dL (2.4-3.5); Glucose 206 mg/dL (80-115); Potassium 3.8 mmol/L (3.5-5.1); Protein, Total 6.8 g/dL (6.0-8.3); Sodium 138 mmol/L (136-145)
[2019-12-11 05:06] LABS: Band 10 % (5-11); Hemoglobin 10.8 g/dL (12.0-16.0); Lymphocytes 1 % (21-51); MDiff Complete? YES; Mean Corpuscular HGB CONC 33.5 g/dL (32.0-36.0); Mean Corpuscular Hemoglobin 32.9 pg (27.0-31.0); Monocytes 1 % (0-10); Neutrophil 88 % (42-75); Platelet Count 295 thou/uL (130-400); RBC Distribution Width 15.2 % (11.5-14.5); Red Blood Cell (RBC) Count 3.28 mill/uL (4.20-5.40)
[2019-12-11] MEDS: Levothyroxine Sodium 100 MCG TAB PO SCH (06:41)
[2019-12-11] MEDS: HumaLOG 300 UNITS/3 ML VIAL SC PRN ×3 (06:42→17:51)
[2019-12-11] MEDS: hydrALAZINE 25 MG TAB PO SCH ×3 (07:24→22:30)
[2019-12-11] MEDS: Labetalol 100 MG TAB PO SCH ×3 (07:25→22:30)
[2019-12-11] MEDS: Isosorbide Dinitrate 20 MG TAB PO SCH ×3 (07:25→22:30)
[2019-12-11] MEDS: Ascorbic Acid 500 mg Chewable Tablet PO SCH (08:22)
[2019-12-11] MEDS: FLUoxetine HCl 20 MG CAP PO SCH (08:23)
[2019-12-11] MEDS: Cholecalciferol (Vitamin D3) 400 UNITS TAB PER TUBE SCH (08:23)
[2019-12-11] MEDS: Gabapentin 300 MG CAP PO SCH ×3 (08:23→22:01)
[2019-12-11] MEDS: Sodium Bicarbonate Tab 325 MG TAB PO SCH ×3 (08:24→22:03)
[2019-12-11] MEDS: Pantoprazole 40 MG VIAL IVP SCH ×2 (08:24→22:05)
[2019-12-11] MEDS: methylPREDNISolone Sod Succ/PF 125 MG/2 ML VIAL IVP SCH ×2 (08:24→22:04)
[2019-12-11] MEDS: Spironolactone 100 MG TAB PO SCH (08:28)
[2019-12-11] MEDS: Fluconazole In NaCl,Iso-Osm 200 MG in Premix Bag 1 BAG IVPB SCH (08:41)
[2019-12-11] MEDS: NPH, Human Insulin Isophane 300 UNIT/3 ML VIAL SC SCH ×2 (08:41→22:05)
--- NOTE | 2019-12-11 08:57 | RAD ---
CHEST ONE VIEW: HISTORY: History of pneumonia. COMPARISON: Prior exam dated 12/10/2019. FINDINGS: The right-sided thoracostomy tube is unchanged. The right-sided pneumothorax is stable. The patient r emain intubated with gastric catheter placement. The air space disease in the right lower lobe is sta ble. The visualized left lung is clear. IMPRESSION: Stable examination. POS: BH
--- NOTE | 2019-12-11 10:22 | PDOC.NEPPN ---
- Subjective Encounter Date: 12/11/19 Encounter Time: 10:21 Subjective: Seen and examined in follow up for MOOK and HTN. Remained afebrile. - Objective Vital Signs & Weight: Vital Signs (12 hours) Temp Pulse Resp BP 12/11/19 07:25 87 135/93 H 12/11/19 07:24 87 135/93 H 12/11/19 06:49 87 135/93 H 12/11/19 06:00 12/11/19 05:00 98.8 F 12/11/19 04:00 12/11/19 02:48 88 12/11/19 02:00 12/11/19 01:02 85 12/11/19 00:00 98.8 F 12/10/19 22:25 85 Weight Admit Weight 197 lb Weight 199 lb 8.293 oz Most Recent Monitor Data Heart Rate from ECG 85 NIBP 141/88 NIBP BP-Mean 105 Respiration from ECG 21 SpO2 99 I&O: 12/10/19 12/11/19 12/12/19 06:59 06:59 06:59 Intake Total 1850.2 3986.5 Output Total 2915 1930 100 Balance -1064.8 2056.5 -100 Result Diagrams: 12/11/19 03:50 12/11/19 03:50 Nephrology ROS - Medication Medications: Active Medications Generic Name Dose Route Start Last Admin Trade Name Freq PRN Reason Stop Dose Admin Acetaminophen 650 mg 11/21/19 05:39 11/21/19 13:23 Tylenol [place] 650 mg Q6H PRN Administration Fever > 101 or Mild Pain Acetaminophen 650 mg 11/24/19 16:43 12/02/19 12:28 Tylenol Elixir PER TUBE 650 mg Q6H PRN Administration Fever > 100.3 Amlodipine Besylate 10 mg 12/06/19 21:00 12/10/19 22:14 Amlodipine 10 Mg Tab PO 10 mg 2100 JOSSY Administration Ascorbic Acid 1,000 mg 11/25/19 09:00 12/11/19 08:22 Vitamin C PO 1,000 mg DAILY JOSSY Administration Cholecalciferol 400 units 11/27/19 09:00 12/11/19 08:23 Vitamin D PER TUBE 400 units DAILY JOSSY Administration Clonidine 0.3 mg 11/23/19 13:00 09/23/20 15:58 [id number]-5 TD Not Given Q7D JOSSY Dextrose/Water 25 gm 11/21/19 04:06 11/21/19 04:21 Dextrose 50% SLOW IVP 25 gm PRN PRN Administration Hypoglycemia Enoxaparin Sodium 80 mg 11/25/19 21:00 12/10/19 22:12 Lovenox SC 80 mg 2100 JOSSY Administration Fluoxetine HCl 60 mg 11/22/19 09:00 12/11/19 08:23 Prozac PO 60 mg DAILY JOSSY Administration Furosemide 40 mg 12/06/19 09:00 12/09/19 22:02 Furosemide 40 Mg/4 Ml Vial SLOW IVP 40 mg BID JOSSY Administration Gabapentin 600 mg 11/21/19 15:00 12/11/19 08:23 Neurontin PO 600 mg TID JOSSY Administration Hydralazine HCl 100 mg 12/06/19 14:00 12/11/19 07:24 Hydralazine 25 Mg Tab PO Not Given Q8H JOSSY Nicardipine HCl 50 mg/ Sodium 250 mls @ 0 mls/hr 11/24/19 09:45 12/04/19 08:54 Chloride IV 250 mls INF JOSSY Administration Protocol As Directed Fluconazole/Sodium Chloride 100 mls @ 100 mls/hr 12/06/19 09:00 12/11/19 08:41 200 mg/ Device IVPB 100 mls DAILY JOSSY Administration Cefazolin Sodium/Dextrose 2 gm 50 mls @ 100 mls/hr 12/09/19 15:00 12/11/19 03:43 / Device IVPB 50 mls 0300,1500 JOSSY Administration Dexmedetomidine HCl 400 mcg/ 100 mls @ 0 mls/hr 12/10/19 15:00 12/10/19 16:28 Sodium Chloride IVPB 100 mls INF JOSSY Administration Protocol Per Protocol Insulin Human Lispro 0 units 11/24/19 10:33 12/11/19 06:42 Humalog SC 4 unit .MODERATE SLIDING SC PRN Administration Moderate Correctional Scale Insulin Human NPH 30 unit 11/28/19 09:00 12/11/19 08:41 Humulin N SC 30 unit Q12HR JOSSY Administration Isosorbide Dinitrate 20 mg 12/10/19 14:00 12/11/19 07:25 Isosorbide Dinitrate 20 Mg Tab PO Not Given Q8H JOSSY Labetalol HCl 20 mg 12/01/19 19:47 12/10/19 02:11 Labetalol Hcl 100 Mg/20 Ml Vial IVPB 20 mg Q2H PRN Administration SBP > 180 Labetalol HCl 200 mg 12/10/19 14:00 12/11/19 07:25 Labetalol 100 Mg Tab PO Not Given Q8HR JOSSY Levothyroxine Sodium 100 mcg 11/22/19 06:00 12/11/19 06:41 Synthroid PO 100 mcg 0600 JOSSY Administration Losartan Potassium 100 mg 12/05/19 09:00 12/09/19 10:00 Losartan 25 Mg Tab PO 100 mg DAILY JOSSY Administration Methylprednisolone Sodium Succinate 80 mg 11/24/19 21:00 12/11/19 08:24 Solu-Medrol IVP 80 mg Q12HR JOSSY Administration Olanzapine 10 mg 11/23/19 21:00 12/10/19 22:13 Zyprexa PO 10 mg HS JOSSY Administration Pantoprazole Sodium 40 mg 12/03/19 21:00 12/11/19 08:24 Pantoprazole 40 Mg Vial IVP 40 mg Q12HR JOSSY Administration Propofol 1,000 mg 12/06/19 09:00 12/10/19 01:50 Propofol 1,000 Mg/100 Ml Vial IV 01/05/20 09:00 1,000 mg INF PRN Administration TO ACHIEVE GOAL RASS Protocol Sodium Bicarbonate 650 mg 11/30/19 15:00 12/11/19 08:24 Sodium Bicarbonate Tab 325 Mg Tab PO 650 mg TID JOSSY Administration Sodium Chloride 10 ml 11/25/19 09:00 12/11/19 08:28 Flush - Normal Saline IVF 10 ml Q12HR JOSSY Administration Spironolactone 100 mg 12/02/19 09:00 12/11/19 08:28 Spironolactone 100 Mg Tab PO 100 mg DAILY JOSSY Administration Vecuronium [place] 10 mg 12/06/19 10:41 12/06/19 22:14 Vecuronium 10 Mg Vial IV 10 mg Q1H PRN Administration AGITATION - Exam General - other findings: Awake but non conversational. Eye - other findings: ET tube in place ENT: normocephalic atraumatic, dry oral mucosa Neck: no JVD Respiratory - other findings: Ventilator transmitted breathsound Cardiovascular: RRR Gastrointestinal: soft, non-tender, non-distended, normal bowel sounds Extremities - other findings: trace edema of both hands noted. No edema of other extremities noted Neurological - other findings: Awake but non conversational or obeying command Nephrology Results - Labs Result Diagrams: 12/11/19 03:50 12/11/19 03:50 Lab results: WBC 14.0 thou/uL (4.8-10.8) H 12/11/19 03:50 Hgb 10.8 g/dL (12.0-16.0) L 12/11/19 03:50 Hct 32.1 % (36.0-47.0) L 12/11/19 03:50 MCV 98.0 fL (78.0-98.0) 12/11/19 03:50 Plt Count 295 thou/uL (130-400) 12/11/19 03:50 Neutrophils % 87.4 % (42.0-75.0) H 11/21/19 01:12 Band Neuts % (Manual) 10 % (5-11) 12/11/19 03:50 ABG pH 7.50 (7.35-7.45) H 12/07/19 08:10 ABG pCO2 30.4 mmHg (35.0-45.0) L 12/07/19 08:10 ABG pO2 56.9 mmHg (> 80.0) L* 12/07/19 08:10 Sodium 138 mmol/L (136-145) 12/11/19 03:50 Potassium 3.8 mmol/L (3.5-5.1) 12/11/19 03:50 Chloride 99 mmol/L (98-107) 12/11/19 03:50 Carbon Dioxide 24 mmol/L (23-31) 12/11/19 03:50 BUN 109 mg/dL (9.8-20.1) H 12/11/19 03:50 Creatinine 1.91 mg/dL (0.6-1.1) H 12/11/19 03:50 Glucose 206 mg/dL (80-115) H 12/11/19 03:50 Lactic Acid 1.9 mmol/L (0.5-2.2) 11/21/19 01:12 Calcium 9.5 mg/dL (7.8-10.44) 12/11/19 03:50 Total Bilirubin 0.4 mg/dL (0.2-1.2) 12/11/19 03:50 AST 12 U/L (5-34) 12/11/19 03:50 ALT 7 U/L (8-55) L 12/11/19 03:50 Alkaline Phosphatase 90 U/L (40-110) 12/11/19 03:50 Creatine Kinase 191 U/L (29-168) H 11/21/19 02:08 Troponin I 0.013 ng/mL (< 0.028) 11/21/19 01:12 C-Reactive Protein 9.33 mg/dL (= or < 0.5) H 12/10/19 07:05 B-Natriuretic Peptide 56.8 pg/mL (0-100) 11/21/19 01:12 Serum Total Protein 6.8 g/dL (6.0-8.3) 12/11/19 03:50 Albumin 3.1 g/dL (3.4-4.8) L 12/11/19 03:50 Urine Ketones Negative mg/dL (Negative) 12/02/19 14:20 Urine Blood Negative (Negative) 12/02/19 14:20 Urine Nitrite Negative (Negative) 12/02/19 14:20 Ur Leukocyte Esterase Negative Sarahy/uL (Negative) 12/02/19 14:20 Urine RBC 0-3 HPF (0-3) 12/02/19 14:20 Urine WBC 0-3 HPF (0-3) 12/02/19 14:20 Ur Squamous Epith Cells 0-3 HPF (0-3) 12/02/19 14:20 Urine Bacteria None Seen HPF (None Seen) 12/02/19 14:20 Nephrology AP PN - Plan ASSESSMENT: Acute kidney injury due to hemodynamic factors. Acute increase in creat most likely due to diuretic +/- ARB. BUN and creat are down with holding of lasix and losartan Hypertension. BP control better. Still fluctuating depending on sedation level. Chronic kidney disease stage 3. Hypernatremia: Resolved Fluid overload. Improved with diuretic. Patient seem euvolemic currently Hypoalbuminemia. Improved Metabolic acidosis. Improved with alkali therapy Primary hyperaldosteronism, on spironolactone. Septic shock, resolved. Staphylococcus bacteremia. Acute respiratory failure on the vent COVID pneumonia. Multifocal pneumonia. Right-sided pneumothorax. Anemia: Drop in Hb due to hemodilution. Improved with diuretics. Presumed fungemia given positive blood culture with yeast PLAN: DC lasix and losartan. Continue current antihypertensives with holding parameters Decrease free water flushes to 100 cc every 4 hours with resolution of hypernatremia and discontinuation of lasix Continue spironolactone and monitor serum potassium Continue oral sodium bicarbonate. Antimicrobial as per ID. Respiratory failure treatment as per Laundry Aide. Increase tube feeding rate to goal if cleared by ramp agent. Recommend decrease of steroid if possible to help reduce BUN
[2019-12-11] MEDS ORDERED: Vancomycin HCl 1 GM in Sodium Chloride 0.9% 250 ML 250 ML IVPB SCH (14:00)
--- NOTE | 2019-12-11 14:25 | PRG ---
DATE OF SERVICE: 12/11/2019 SUBJECTIVE: Ms. Mosqueda had developed some drainage around one of the chest tubes, the lower placed one. Dr. Blakely has evaluated and does not think that she is eligible for replacement at this point in time. I have asked nurse to submit cultures to give us an idea what the likely superinfecting agent is. Otherwise, she is following commands. She looks improving somewhat. Having diarrhea, but it is most likely due to the feedings. OBJECTIVE: VITAL SIGNS: T-max 99.9 to 100, blood pressure 170/104, heart rate 89, O2 saturations are 96, FiO2 of 49. Mechanical ventilation. HEENT: She looks around. Conjugate eye movements. Pupils are midline, reactive. GENERAL: She seems to understand spoken word. She is very weak. Does not move any extremity. LUNGS: With coarse breath sounds, particularly on the right side. There is odorous brownish greenish exudate from the lower placed chest tube, right side. HEART: S1 and S2, regular rate. ABDOMEN: Soft, not distended. NEUROLOGIC: Again, diffusely weak, flaccid weakness. LABORATORY DATA: White cell count down to 14,000, hemoglobin 10.8, platelets 295, 88% neutrophils. Creatinine is at 1.91. GFR calculated at 32. Liver profile normal. Albumin is 3.1. She is currently on cefazolin and methylprednisolone. Last imaging; chest x-ray from today, it shows a right-sided thoracostomy tube, right-sided pneumothorax, stable. Gastrostomy tube and airspace disease, right lower lobe. Left lung is clear. Repeat blood cultures from 18 showed Lana albicans, but no growth in the second sample. The line has been exchanged through a midline. ASSESSMENT AND DISCUSSION: Type 2 diabetes, Crohn disease, on periodic TNF inhibitor, chronic obstructive pulmonary disease, COVID pneumonia, MSSA bacteremia probably from port, which is removed, Lana albicans colonization of central line, which has been removed as well. Now, she has developed this inflammatory process in the chest tube with foul order and exudate and will need to be treated for presumed superinfection. I have asked the nurse to submit cultures, and we will switch her to cefepime, vancomycin. Continue Diflucan. Those were adjusted for renal function. She is off isolation, COVID pneumonia, I think, has run its course, and now she is having complications of the pneumothorax, which was a spontaneous pneumothorax and the treatments. She is at risk for Aspergillus infection. We will check her Fungitell assay. Job ID: [id number]
[2019-12-11] MEDS ORDERED: Vancomycin HCl 1.25 GM in Sodium Chloride 0.9% 250 ML 250 ML IVPB SCH (14:30)
--- NOTE | 2019-12-11 14:55 | PDOC.HOSPP ---
- Subjective Encounter Date: 12/11/19 Encounter Time: 13:00 Subjective: Patient was seen and examined in bed. She is currently on vent support however more communicative. No significant events overnight. - Objective Vital Signs & Weight: Vital Signs (12 hours) Temp Pulse Resp BP Pulse Ox 12/11/19 14:00 33 H 12/11/19 13:59 93 178/113 H 12/11/19 13:55 93 178/113 H 12/11/19 13:00 97.9 F 12/11/19 12:00 30 H 12/11/19 11:10 93 156/99 H 12/11/19 10:00 28 H 12/11/19 08:00 99.0 F 28 H 96 12/11/19 07:25 87 135/93 H 12/11/19 07:24 87 135/93 H 12/11/19 06:49 87 135/93 H 12/11/19 06:00 19 12/11/19 05:00 98.8 F 12/11/19 04:00 19 Weight Admit Weight 197 lb Weight 199 lb 8.293 oz Most Recent Monitor Data Heart Rate from ECG 109 NIBP 160/106 NIBP BP-Mean 124 Respiration from ECG 30 SpO2 91 I&O: 12/10/19 12/11/19 12/12/19 06:59 06:59 06:59 Intake Total 1850.2 3986.5 Output Total 2915 1930 765 Balance -1064.8 2056.5 -765 Result Diagrams: 12/11/19 03:50 12/11/19 03:50 Additional Labs: Accuchecks 12/11/19 11:44 POC Glucose 250 H Hospitalist ROS - Medication Medications: Active Medications Generic Name Dose Route Start Last Admin Trade Name Freq PRN Reason Stop Dose Admin Acetaminophen 650 mg 11/21/19 05:39 11/21/19 13:23 Tylenol AR 650 mg Q6H PRN Administration Fever > 101 or Mild Pain Acetaminophen 650 mg 11/24/19 16:43 12/02/19 12:28 Tylenol Elixir PER TUBE 650 mg Q6H PRN Administration Fever > 100.3 Amlodipine Besylate 10 mg 12/06/19 21:00 12/10/19 22:14 Amlodipine 10 Mg Tab PO 10 mg 2100 JOSSY Administration Ascorbic Acid 1,000 mg 11/25/19 09:00 12/11/19 08:22 Vitamin C PO 1,000 mg DAILY JOSSY Administration Cholecalciferol 400 units 11/27/19 09:00 12/11/19 08:23 Vitamin D PER TUBE 400 units DAILY JOSSY Administration Clonidine 0.3 mg 11/23/19 13:00 12/07/19 15:58 [id number]-[id number]-4 TD Not Given Q7D JOSSY Dextrose/Water 25 gm 11/21/19 04:06 11/21/19 04:21 Dextrose 50% SLOW IVP 25 gm PRN PRN Administration Hypoglycemia Enoxaparin Sodium 80 mg 11/25/19 21:00 12/10/19 22:12 Lovenox SC 80 mg 2100 JOSSY Administration Fluoxetine HCl 60 mg 11/22/19 09:00 12/11/19 08:23 Prozac PO 60 mg DAILY JOSSY Administration Gabapentin 600 mg 11/21/19 15:00 12/11/19 13:55 Neurontin PO 600 mg TID JOSSY Administration Hydralazine HCl 100 mg 12/06/19 14:00 12/11/19 13:59 Hydralazine 25 Mg Tab PO 100 mg Q8H JOSSY Administration Nicardipine HCl 50 mg/ Sodium 250 mls @ 0 mls/hr 11/24/19 09:45 12/04/19 08:54 Chloride IV 250 mls INF JOSSY Administration Protocol As Directed Fluconazole/Sodium Chloride 100 mls @ 100 mls/hr 12/06/19 09:00 12/11/19 0 8:41 200 mg/ Device IVPB 100 mls DAILY JOSSY Administration Dexmedetomidine HCl 400 mcg/ 100 mls @ 0 mls/hr 12/10/19 15:00 12/10/19 16:28 Sodium Chloride IVPB 100 mls INF JOSSY Administration Protocol Per Protocol Insulin Human Lispro 0 units 11/24/19 10:33 12/11/19 11:40 Humalog SC 4 unit .MODERATE SLIDING SC PRN Administration Moderate Correctional Scale Insulin Human NPH 30 unit 11/28/19 09:00 12/11/19 08:41 Humulin N SC 30 unit Q12HR JOSSY Administration Isosorbide Dinitrate 20 mg 12/10/19 14:00 12/11/19 13:59 Isosorbide Dinitrate 20 Mg Tab PO 20 mg Q8H JOSSY Administration Labetalol HCl 20 mg 12/01/19 19:47 12/10/19 02:11 Labetalol Hcl 100 Mg/20 Ml Vial IVPB 20 mg Q2H PRN Administration SBP > 180 Labetalol HCl 200 mg 12/10/19 14:00 12/11/19 13:55 Labetalol 100 Mg Tab PO 200 mg Q8HR JOSSY Administration Levothyroxine Sodium 100 mcg 11/22/19 06:00 12/11/19 06:41 Synthroid PO 100 mcg 0600 JOSSY Administration Methylprednisolone Sodium Succinate 80 mg 11/24/19 21:00 12/11/19 08:24 Solu-Medrol IVP 80 mg Q12HR JOSSY Administration Olanzapine 10 mg 11/23/19 21:00 12/10/19 22:13 Zyprexa PO 10 mg HS JOSSY Administration Pantoprazole Sodium 40 mg 12/03/19 21:00 12/11/19 08:24 Pantoprazole 40 Mg Vial IVP 40 mg Q12HR JOSSY Administration Propofol 1,000 mg 12/06/19 09:00 12/10/19 01:50 Propofol 1,000 Mg/100 Ml Vial IV 01/05/20 09:00 1,000 mg INF PRN Administration TO ACHIEVE GOAL RASS Protocol Sodium Bicarbonate 650 mg 11/30/19 15:00 12/11/19 13:54 Sodium Bicarbonate Tab 325 Mg Tab PO 650 mg TID JOSSY Administration Sodium Chloride 10 ml 11/25/19 09:00 12/11/19 08:28 Flush - Normal Saline IVF 10 ml Q12HR JOSSY Administration Spironolactone 100 mg 12/02/19 09:00 12/11/19 08:28 Spironolactone 100 Mg Tab PO 100 mg DAILY JOSSY Administration Vecuronium [place] 10 mg 12/06/19 10:41 12/06/19 22:14 Vecuronium 10 Mg Vial IV 10 mg Q1H PRN Administration AGITATION - Exam General - other findings: Intubated, on ventilator support. Following commands Heart - other findings: S1-S2 present. No murmurs gallops or rubs. Respiratory - other findings: Coarse breath sounds bilaterally. Gastrointestinal - other findings: Soft, bowel sounds present Extremities - other findings: Bilateral pitting pedal edema Hosp A/P - Plan 64-year-old female patient admitted in the ICU on ventilator support on account of acute hypoxic respiratory failure with COVID pneumonia. Also has Staphylococcus bacteremia and hypertension. Continue management in CCU. Generally stable. She is small communicative today and follows commands Currently taking of contact COVID precautions. Given duration on ventilator plan to consider trach and PEG next week. Acute hypoxic respiratory failure Secondary to COVID pneumonia Continue ventilator management Pulmonology following. Right pneumothorax Chest tubes in place. COVID pneumonia Continues anticoagulation Also on steroids. Continue close monitoring. Staph aureus bacteremia Was on oxacillincefazolinnow discontinued ID follow Consents for ventilator associated infection. Antibiotics been changed to vancomycin and cefepime as per ID Secretions sent for culture. 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 Hypertensionimproved Was on nicardipine dripcurrently discontinued Continue blood pressure medications and monitoring. Nephrology following. Hyperglycemiaimproved. Blood sugar controlled on NPH 30 every 12 Moderate correctional sliding scale. Continue close monitoring. Hypothyroidism Continue levothyroxine VTE prophylaxistherapeutic: Lovenox Dispositionpending improvement. Prognosis is generally poor. Planning for trach and PEG next week.
--- NOTE | 2019-12-11 16:53 | PRG ---
DATE OF SERVICE: 12/11/2019 SUBJECTIVE: Ronda Mosqueda is on a minimum dose of Precedex. She will open her eyes. She is making eye contact with me today. She would not follow commands for me. OBJECTIVE: VITAL SIGNS: Heart rate is 100, blood pressure 129/82, FiO2 is 49% and she is still on bilevel. LUNGS: Unchanged. HEART: Unchanged. ABDOMEN: Unchanged. LABORATORY DATA: White count 14, hemoglobin 10, and platelets 295. Sodium 138, potassium 3.8, chloride 99, bicarb 24, BUN 109, and creatinine 1.91. IMPRESSION: Respiratory failure associated with COVID pneumonia. PLAN: Hopefully, sometime early this week, we can consider tracheostomy. Job ID: [id number]
--- NOTE | 2019-12-11 19:05 | RAD ---
RADIOGRAPH CHEST 1 VIEW: DATE: 12/11/2019 TIME: 6:55 PM HISTORY: 64 year old female follow-up pneumothorax COMPARISON: 12/11/2019 4:29 AM FINDINGS: No interval change in positions of the 2 right-sided chest tubes. The right apical pneumothorax appears somewhat larger now, estimated to occupy approximately 25-30% v olume of right hemithoracic cavity. Airspace disease at right medial and central lung zones unchanged. New airspace disease at left mid lung zone, and worsening at left lower lung zone. Endotracheal tube and esophagogastric tube remain. IMPRESSION: 1) mild interval increase in size of small right apical pneumothorax. 2) new infiltrates throughout much of the left lung.
[2019-12-11 19:11] LABS: Actual Bicarbonate (HCO3a) 26.2 mEq/L (22-28); Base Excess (BEa) 1.2 mEq/L (-2.0 to +3.0); CO2 Tension 43.2 mmHg (35.0-45.0); Calcium, Ionized (arterial) 1.28 mmol/L (1.12-1.30); Carboxyhemoglobin (COHb) 0.6 gm% (0.0-3.0); O2 Tension (PaO2), arterial 71.2 mmHg (> 80.0); Potassium - ABG Lab 3.73 mmol/L (3.70-5.30)
[2019-12-11 19:34] LABS: Puncture Site RR
[2019-12-11] MEDS: MEROPENEM 1 GM/50 ML 1 GM in Premix Bag 1 BAG IVPB SCH (22:00)
[2019-12-11] MEDS: Amlodipine 10 MG TAB PO SCH (22:02)
[2019-12-11] MEDS: Enoxaparin Sodium 80 MG/0.8 ML SYRINGE SC SCH (22:03)
[2019-12-11] MEDS: OLANZapine 5 MG TAB PO SCH (22:04)
[2019-12-12 05:23] LABS: ALT (SGPT) Less than 7 U/L (8-55); AST (SGOT) 12 U/L (5-34); Albumin 3.1 g/dL (3.4-4.8); Alkaline Phosphatase 88 U/L (40-110); Anion Gap 17 mmol/L (10-20); BUN (Urea Nitrogen) 105 mg/dL (9.8-20.1); Bilirubin, Total 0.4 mg/dL (0.2-1.2); Calc. Creatinine Clearance 47 mL/min (70-130); Calcium 9.7 mg/dL (7.8-10.44); Carbon Dioxide 24 mmol/L (23-31); Chloride 102 mmol/L (98-107); Estimated GFR-MDRD 36; Globulin 3.7 g/dL (2.4-3.5); Glucose 216 mg/dL (80-115); Potassium 3.8 mmol/L (3.5-5.1); Protein, Total 6.8 g/dL (6.0-8.3); Sodium 139 mmol/L (136-145)
[2019-12-12 05:44] LABS: Hemoglobin 10.8 g/dL (12.0-16.0); Mean Corpuscular HGB CONC 33.3 g/dL (32.0-36.0); Mean Corpuscular Hemoglobin 32.7 pg (27.0-31.0); Mean Corpuscular Volume 98.2 fL (78.0-98.0); Mean Platelet Volume 8.8 fL (7.4-10.4); Platelet Count 300 thou/uL (130-400); RBC Distribution Width 15.3 % (11.5-14.5); White Blood Cell (WBC) Count 11.7 thou/uL (4.8-10.8)
[2019-12-12 06:05] LABS: Band 3 % (5-11); Lymphocytes 4 % (21-51); MDiff Complete? YES; Monocytes 3 % (0-10); Neutrophil 90 % (42-75)
[2019-12-12] MEDS: Levothyroxine Sodium 100 MCG TAB PO SCH (06:15)
[2019-12-12] MEDS: HumaLOG 300 UNITS/3 ML VIAL SC PRN ×3 (06:24→21:15)
[2019-12-12] MEDS: Isosorbide Dinitrate 20 MG TAB PO SCH ×3 (06:27→21:17)
[2019-12-12] MEDS: hydrALAZINE 25 MG TAB PO SCH ×3 (06:27→21:13)
[2019-12-12] MEDS: Labetalol 100 MG TAB PO SCH ×3 (06:27→22:23)
[2019-12-12 07:12] LABS: Actual Bicarbonate (HCO3a) 24.3 mEq/L (22-28); Base Excess (BEa) 1.2 mEq/L (-2.0 to +3.0); CO2 Tension 33.4 mmHg (35.0-45.0); Calcium, Ionized (arterial) 1.27 mmol/L (1.12-1.30); Carboxyhemoglobin (COHb) 0.6 gm% (0.0-3.0); Hemoglobin (Hb) 11.7 g/dL (12.0-16.0); O2 Tension (PaO2), arterial 54.1 mmHg (> 80.0); Potassium - ABG Lab 3.75 mmol/L (3.70-5.30); pH, Arterial 7.48 (7.35-7.45)
[2019-12-12 07:13] LABS: Puncture Site RRA
[2019-12-12] MEDS ORDERED: Furosemide 40 MG/4 ML VIAL SLOW IVP SCH (09:15)
--- NOTE | 2019-12-12 10:00 | PRG ---
DATE OF SERVICE: 12/12/2019 SUBJECTIVE: Ronda Mosqueda inadvertently had her endotracheal tube almost pulled out yesterday, but it was advanced. This morning, it was in the right mainstem bronchus. It has been pulled back by Respiratory Therapy. OBJECTIVE: VITAL SIGNS: Heart rate 74, blood pressure 129/89, respiratory rates in the teens, oximetry is in the high 90s. LUNGS: Clear. HEART: Regular rhythm. ABDOMEN: Soft. She still has bilateral diffuse infiltrates. She still has small pneumothorax on the right. She has small air leak. LABORATORY DATA: White count 11.7, hemoglobin 10.8, platelets 300,000. Electrolytes are unremarkable except for a BUN of 105 and a creatinine 1.7 down from 1.9. IMPRESSION: 1. Respiratory failure secondary to COVID pneumonia. 2. Pneumothorax with [address] 3. Acute on chronic kidney disease. We will try switching her to volume ventilation and consider for tracheostomy evaluation later in the week. Job ID: [id number]
[2019-12-12] MEDS: Fluconazole In NaCl,Iso-Osm 200 MG in Premix Bag 1 BAG IVPB SCH (10:16)
[2019-12-12] MEDS: MEROPENEM 1 GM/50 ML 1 GM in Premix Bag 1 BAG IVPB SCH ×2 (10:17→21:09)
[2019-12-12] MEDS: Gabapentin 300 MG CAP PO SCH ×3 (10:18→21:08)
[2019-12-12] MEDS: Sodium Bicarbonate Tab 325 MG TAB PO SCH ×3 (10:18→21:08)
[2019-12-12] MEDS: FLUoxetine HCl 20 MG CAP PO SCH (10:18)
[2019-12-12] MEDS: methylPREDNISolone Sod Succ/PF 125 MG/2 ML VIAL IVP SCH ×2 (10:19→21:10)
[2019-12-12] MEDS: Cholecalciferol (Vitamin D3) 400 UNITS TAB PER TUBE SCH (10:19)
[2019-12-12] MEDS: Pantoprazole 40 MG VIAL IVP SCH ×2 (10:20→21:12)
[2019-12-12] MEDS: NPH, Human Insulin Isophane 300 UNIT/3 ML VIAL SC SCH ×2 (10:20→21:11)
[2019-12-12] MEDS: Spironolactone 100 MG TAB PO SCH (10:21)
[2019-12-12] MEDS: Ascorbic Acid 500 mg Chewable Tablet PO SCH (10:24)
--- NOTE | 2019-12-12 11:01 | RAD ---
PORTABLE CHEST: HISTORY: Pneumonia. CCU followup. COMPARISON: 12/11/2019. FINDINGS: The ET tube is placed into the right mainstem bronchus and should be retracted. NG tube is again seen and the tip is not visualized. Right-side chest tubes appear unchanged in position. A small right apical pneumothorax appears unchanged from yesterday. The bibasilar infiltrates and at electasis appear stable. IMPRESSION: 1. ET tube is directed into the right mainstem bronchus. CCU was notified by telephone at the time of dictation. 2. Right apical pneumothorax again noted not significantly changed. 3. Bibasilar infiltrates and atelectasis appear stable. CODE CR POS: OFF
[2019-12-12] MEDS: Morphine 2 MG/ML VIAL SLOW IVP PRN ×3 (11:29→22:08)
[2019-12-12] MEDS: Vancomycin HCl 1.25 GM in Sodium Chloride 0.9% 250 ML 250 ML IVPB SCH (13:33)
--- NOTE | 2019-12-12 13:45 | PDOC.NEPPN ---
- Subjective Encounter Date: 12/12/19 Subjective: Seenin follow up for MOOK on CKD and HTN. Awake and making eye contact and nodding to questions. Still intubated and mechanically ventilated - Objective Vital Signs & Weight: Vital Signs (12 hours) Temp Pulse Resp BP 12/12/19 10:12 87 157/103 H 12/12/19 06:29 74 129/89 12/12/19 06:27 80 12/12/19 06:00 17 12/12/19 04:00 98.9 F 19 12/12/19 03:16 80 12/12/19 02:00 15 12/12/19 01:32 86 Weight Admit Weight 197 lb Weight 181 lb 7.047 oz Most Recent Monitor Data Heart Rate from ECG 79 NIBP 129/89 NIBP BP-Mean 102 Respiration from ECG 16 SpO2 97 I&O: 12/11/19 12/12/19 12/13/19 06:59 06:59 06:59 Intake Total 3986.5 2859.8 Output Total 1930 1994 Balance 2056.5 864.8 Result Diagrams: 12/12/19 04:50 12/12/19 04:50 Additional Labs: Accuchecks 12/12/19 12/11/19 12/10/19 04:59 22:14 22:29 POC Glucose 217 H 185 H 167 H 12/10/19 12/10/19 16:48 12:14 POC Glucose 228 H 241 H Nephrology ROS - Medication Medications: Active Medications Generic Name Dose Route Start Last Admin Trade Name Freq PRN Reason Stop Dose Admin Acetaminophen 650 mg 11/21/19 05:39 11/21/19 13:23 Tylenol [place] 650 mg Q6H PRN Administration Fever > 101 or Mild Pain Acetaminophen 650 mg 11/24/19 16:43 12/02/19 12:28 Tylenol Elixir PER TUBE 650 mg Q6H PRN Administration Fever > 100.3 Amlodipine Besylate 10 mg 12/06/19 21:00 12/11/19 22:02 Amlodipine 10 Mg Tab PO 10 mg 2100 JOSSY Administration Ascorbic Acid 1,000 mg 11/25/19 09:00 12/12/19 10:24 Vitamin C PO 1,000 mg DAILY JOSSY Administration Cholecalciferol 400 units 11/27/19 09:00 12/12/19 10:19 Vitamin D PER TUBE 400 units DAILY JOSSY Administration Clonidine 0.3 mg 11/23/19 13:00 12/07/19 15:58 Vssdicxi-Vgg-7 TD Not Given Q7D JOSSY Dextrose/Water 25 gm 11/21/19 04:06 11/21/19 04:21 Dextrose 50% SLOW IVP 25 gm PRN PRN Administration Hypoglycemia Enoxaparin Sodium 80 mg 11/25/19 21:00 12/11/19 22:03 Lovenox SC 80 mg 2100 JOSSY Administration Fluoxetine HCl 60 mg 11/22/19 09:00 12/12/19 10:18 Prozac PO 60 mg DAILY JOSSY Administration Gabapentin 600 mg 11/21/19 15:00 12/12/19 10:18 Neurontin PO 600 mg TID JOSSY Administration Hydralazine HCl 100 mg 12/06/19 14:00 12/12/19 06:27 Hydralazine 25 Mg Tab PO Not Given Q8H JOSSY Nicardipine HCl 50 mg/ Sodium 250 mls @ 0 mls/hr 11/24/19 09:45 12/04/19 08:54 Chloride IV 250 mls INF JOSSY Administration Protocol As Directed Fluconazole/Sodium Chloride 100 mls @ 100 mls/hr 12/06/19 09:00 12/12/19 10:16 200 mg/ Device IVPB 100 mls DAILY JOSSY Administration Dexmedetomidine HCl 400 mcg/ 100 mls @ 0 mls/hr 12/10/19 15:00 12/12/19 10:25 Sodium Chloride IVPB 100 mls INF JOSSY Administration Protocol Per Protocol Meropenem 1 gm/ Device 50 mls @ 100 mls/hr 12/11/19 21:00 12/12/19 10:17 IVPB 50 mls Q12HR JOSSY Administration Insulin Human Lispro 0 units 11/24/19 10:33 12/12/19 10:39 Humalog SC 2 unit .MODERATE SLIDING SC PRN Administration Moderate Correctional Scale Insulin Human NPH 30 unit 11/28/19 09:00 12/12/19 10:20 Humulin N SC 30 unit Q12HR JOSSY Administration Isosorbide Dinitrate 20 mg 12/10/19 14:00 12/12/19 06:27 Isosorbide Dinitrate 20 Mg Tab PO Not Given Q8H JOSSY Labetalol HCl 20 mg 12/01/19 19:47 12/10/19 02:11 Labetalol Hcl 100 Mg/20 Ml Vial IVPB 20 mg Q2H PRN Administration SBP > 180 Labetalol HCl 200 mg 12/10/19 14:00 12/12/19 06:27 Labetalol 100 Mg Tab PO Not Given Q8HR JOSSY Levothyroxine Sodium 100 mcg 11/22/19 06:00 12/12/19 06:15 Synthroid PO 100 mcg 0600 JOSSY Administration Methylprednisolone Sodium Succinate 80 mg 11/24/19 21:00 12/12/19 10:19 Solu-Medrol IVP 80 mg Q12HR JOSSY Administration Morphine Sulfate 2 mg 12/06/19 09:00 12/12/19 11:29 Morphine 2 Mg/Ml Vial SLOW IVP 01/05/20 09:00 2 mg Q1H PRN Administration Breakthrough Pain/Agitation Olanzapine 10 mg 11/23/19 21:00 12/11/19 22:04 Zyprexa PO 10 mg HS JOSSY Administration Pantoprazole Sodium 40 mg 12/03/19 21:00 12/12/19 10:20 Pantoprazole 40 Mg Vial IVP 40 mg Q12HR JOSSY Administration Propofol 1,000 mg 12/06/19 09:00 12/10/19 01:50 Propofol 1,000 Mg/100 Ml Vial IV 01/05/20 09:00 1,000 mg INF PRN Administration TO ACHIEVE GOAL RASS Protocol Sodium Bicarbonate 650 mg 11/30/19 15:00 12/12/19 10:18 Sodium Bicarbonate Tab 325 Mg Tab PO 650 mg TID JOSSY Administration Sodium Chloride 10 ml 11/25/19 09:00 12/12/19 10:21 Flush - Normal Saline IVF 10 ml Q12HR JOSSY Administration Spironolactone 100 mg 12/02/19 09:00 12/12/19 10:21 Spironolactone 100 Mg Tab PO 100 mg DAILY JOSSY Administration Vecuronium [place] 10 mg 12/06/19 10:41 12/06/19 22:14 Vecuronium 10 Mg Vial IV 10 mg Q1H PRN Administration AGITATION - Exam General - other findings: Awake. nodding to questtions. ENT: normocephalic atraumatic, dry oral mucosa ENT - other findings: ET tube is in place Respiratory - other findings: Coarse ventilators transmitted sound Cardiovascular: RRR Gastrointestinal: soft, non-tender, non-distended, normal bowel sounds Extremities - other findings: trace edema of hands. Neurological - other findings: Awake. looks up to call and responds with nodding of head. Nephrology Results - Labs Result Diagrams: 12/12/19 04:50 12/12/19 04:50 Lab results: WBC 11.7 thou/uL (4.8-10.8) H 12/12/19 04:50 Hgb 10.8 g/dL (12.0-16.0) L 12/12/19 04:50 Hct 32.4 % (36.0-47.0) L 12/12/19 04:50 MCV 98.2 fL (78.0-98.0) H 12/12/19 04:50 Plt Count 300 thou/uL (130-400) 12/12/19 04:50 Neutrophils % 87.4 % (42.0-75.0) H 11/21/19 01:12 Band Neuts % (Manual) 3 % (5-11) L 12/12/19 04:50 ABG pH 7.48 (7.35-7.45) H 12/12/19 06:58 ABG pCO2 33.4 mmHg (35.0-45.0) L 12/12/19 06:58 ABG pO2 54.1 mmHg (> 80.0) L* 12/12/19 06:58 Sodium 139 mmol/L (136-145) 12/12/19 04:50 Potassium 3.8 mmol/L (3.5-5.1) 12/12/19 04:50 Chloride 102 mmol/L (98-107) 12/12/19 04:50 Carbon Dioxide 24 mmol/L (23-31) 12/12/19 04:50 BUN 105 mg/dL (9.8-20.1) H 12/12/19 04:50 Creatinine 1.70 mg/dL (0.6-1.1) H 12/12/19 04:50 Glucose 216 mg/dL (80-115) H 12/12/19 04:50 Lactic Acid 1.9 mmol/L (0.5-2.2) 11/21/19 01:12 Calcium 9.7 mg/dL (7.8-10.44) 12/12/19 04:50 Total Bilirubin 0.4 mg/dL (0.2-1.2) 12/12/19 04:50 AST 12 U/L (5-34) 12/12/19 04:50 ALT Less than 7 U/L (8-55) L 12/12/19 04:50 Alkaline Phosphatase 88 U/L (40-110) 12/12/19 04:50 Creatine Kinase 191 U/L (29-168) H 11/21/19 02:08 Troponin I 0.013 ng/mL (< 0.028) 11/21/19 01:12 C-Reactive Protein 9.33 mg/dL (= or < 0.5) H 12/10/19 07:05 B-Natriuretic Peptide 56.8 pg/mL (0-100) 11/21/19 01:12 Serum Total Protein 6.8 g/dL (6.0-8.3) 12/12/19 04:50 Albumin 3.1 g/dL (3.4-4.8) L 12/12/19 04:50 Urine Ketones Negative mg/dL (Negative) 12/02/19 14:20 Urine Blood Negative (Negative) 12/02/19 14:20 Urine Nitrite Negative (Negative) 12/02/19 14:20 Ur Leukocyte Esterase Negative Asrahy/uL (Negative) 12/02/19 14:20 Urine RBC 0-3 HPF (0-3) 12/02/19 14:20 Urine WBC 0-3 HPF (0-3) 12/02/19 14:20 Ur Squamous Epith Cells 0-3 HPF (0-3) 12/02/19 14:20 Urine Bacteria None Seen HPF (None Seen) 12/02/19 14:20 Nephrology AP PN - Plan ASSESSMENT: Acute kidney injury due to hemodynamic factors. Creat is better with holding of lasix and ARB. BUN is still elevated relative to creatinine Hypertension. BP control better. Chronic kidney disease stage 3. Hypernatremia: Resolved Fluid overload. Improved with diuretic. Hypoalbuminemia. Improved Metabolic acidosis. Improved with alkali therapy Primary hyperaldosteronism, on spironolactone. Septic shock, resolved. Staphylococcus bacteremia. Acute respiratory failure on the vent COVID pneumonia. Multifocal pneumonia. Right-sided pneumothorax. Anemia: Due to acute illness Presumed fungemia given positive blood culture with yeast PLAN: Restart lasix due to imroved Creat and increased lung infiltrates. Increase Nepro to 20 cc/hr Continue current antihypertensives with holding parameters Continue spironolactone and monitor serum potassium Continue oral sodium bicarbonate. Antimicrobial as per ID. Respiratory failure treatment as per [employer] Staff [employer]. Recommend decrease of steroid if possible to help reduce BUN
[2019-12-12] MEDS: Acetaminophen 650 MG/20.3 ML UDCUP PER TUBE PRN (13:46)
[2019-12-12] MEDS: Propofol 1,000 MG/100 ML VIAL IV PRN (13:51)
[2019-12-12] MEDS: Lorazepam 2 MG/ML VIAL SLOW IVP PRN (13:58)
--- NOTE | 2019-12-12 16:01 | PDOC.HOSPP ---
- Subjective Encounter Date: 12/12/19 Encounter Time: 15:58 Subjective: Seen and examined in bed. Still following commands. No significant improvement overnight. - Objective Vital Signs & Weight: Vital Signs (12 hours) Temp Pulse Resp BP 12/12/19 14:21 89 138/89 12/12/19 13:34 87 171/111 H 12/12/19 13:33 87 171/111 H 12/12/19 10:12 87 157/103 H 12/12/19 06:29 74 129/89 12/12/19 06:27 80 12/12/19 06:00 17 12/12/19 04:00 98.9 F 19 Weight Admit Weight 197 lb Weight 181 lb 7.047 oz Most Recent Monitor Data Heart Rate from ECG 84 NIBP 132/85 NIBP BP-Mean 100 Respiration from ECG 20 SpO2 95 I&O: 12/11/19 12/12/19 12/13/19 06:59 06:59 06:59 Intake Total 3986.5 2859.8 Output Total 1930 1994 Balance 2056.5 864.8 Result Diagrams: 12/12/19 04:50 12/12/19 04:50 Additional Labs: Accuchecks 12/12/19 12/12/19 12/11/19 10:39 04:59 22:14 POC Glucose 175 H 217 H 185 H 12/11/19 12/10/19 12/10/19 17:54 22:29 16:48 POC Glucose 240 H 167 H 228 H 12/10/19 12:14 POC Glucose 241 H Hospitalist ROS - Medication Medications: Active Medications Generic Name Dose Route Start Last Admin Trade Name Freq PRN Reason Stop Dose Admin Acetaminophen 650 mg 11/21/19 05:39 11/21/19 13:23 Tylenol [place] 650 mg Q6H PRN Administration Fever > 101 or Mild Pain Acetaminophen 650 mg 11/24/19 16:43 12/12/19 13:46 Tylenol Elixir PER TUBE 650 mg Q6H PRN Administration Fever > 100.3 Amlodipine Besylate 10 mg 12/06/19 21:00 12/11/19 22:02 Amlodipine 10 Mg Tab PO 10 mg 2100 JOSSY Administration Ascorbic Acid 1,000 mg 11/25/19 09:00 12/12/19 10:24 Vitamin C PO 1,000 mg DAILY JOSSY Administration Cholecalciferol 400 units 11/27/19 09:00 12/12/19 10:19 Vitamin D PER TUBE 400 units DAILY JOSSY Administration Clonidine 0.3 mg 11/23/19 13:00 12/07/19 15:58 Pjuqxebw-Vag-4 TD Not Given Q7D JOSSY Dextrose/Water 25 gm 11/21/19 04:06 11/21/19 04:21 Dextrose 50% SLOW IVP 25 gm PRN PRN Administration Hypoglycemia Enoxaparin Sodium 80 mg 11/25/19 21:00 12/11/19 22:03 Lovenox SC 80 mg 2100 JOSSY Administration Fluoxetine HCl 60 mg 11/22/19 09:00 12/12/19 10:18 Prozac PO 60 mg DAILY JOSSY Administration Gabapentin 600 mg 11/21/19 15:00 12/12/19 13:34 Neurontin PO 600 mg TID JOSSY Administration Hydralazine HCl 100 mg 12/06/19 14:00 12/12/19 13:34 Hydralazine 25 Mg Tab PO 100 mg Q8H JOSSY Administration Nicardipine HCl 50 mg/ Sodium 250 mls @ 0 mls/hr 11/24/19 09:45 12/04/19 08:54 Chloride IV 250 mls INF JOSSY Administration Protocol As Directed Fluconazole/Sodium Chloride 100 mls @ 100 mls/hr 12/06/19 09:00 12/12/19 10:16 200 mg/ Device IVPB 100 mls DAILY JOSSY Administration Dexmedetomidine HCl 400 mcg/ 100 mls @ 0 mls/hr 12/10/19 15:00 12/12/19 10:25 Sodium Chloride IVPB 100 mls INF JOSSY Administration Protocol Per Protocol Meropenem 1 gm/ Device 50 mls @ 100 mls/hr 12/11/19 21:00 12/12/19 10:17 IVPB 50 mls Q12HR JOSSY Administration Vancomycin HCl 1.25 gm/ Sodium 250 mls @ 166.667 mls/hr 12/12/19 14:00 12/12/19 13:33 Chloride IVPB 250 mls 1400 JOSSY Administration Insulin Human Lispro 0 units 11/24/19 10:33 12/12/19 10:39 Humalog SC 2 unit .MODERATE SLIDING SC PRN Administration Moderate Correctional Scale Insulin Human NPH 30 unit 11/28/19 09:00 12/12/19 10:20 Humulin N SC 30 unit Q12HR JOSSY Administration Isosorbide Dinitrate 20 mg 12/10/19 14:00 12/12/19 13:38 Isosorbide Dinitrate 20 Mg Tab PO 20 mg Q8H JOSSY Administration Labetalol HCl 20 mg 12/01/19 19:47 12/10/19 02:11 Labetalol Hcl 100 Mg/20 Ml Vial IVPB 20 mg Q2H PRN Administration SBP > 180 Labetalol HCl 200 mg 12/10/19 14:00 12/12/19 13:33 Labetalol 100 Mg Tab PO 200 mg Q8HR JOSSY Administration Levothyroxine Sodium 100 mcg 11/22/19 06:00 12/12/19 06:15 Synthroid PO 100 mcg 0600 JOSSY Administration Lorazepam 2 mg 12/06/19 09:00 12/12/19 13:58 Lorazepam 2 Mg/Ml Vial SLOW IVP 01/05/20 09:00 2 mg Q1H PRN Administration Breakthrough agitation Methylprednisolone Sodium Succinate 80 mg 11/24/19 21:00 12/12/19 10:19 Solu-Medrol IVP 80 mg Q12HR JOSSY Administration Morphine Sulfate 2 mg 12/06/19 09:00 12/12/19 13:46 Morphine 2 Mg/Ml Vial SLOW IVP 01/05/20 09:00 2 mg Q1H PRN Administration Breakthrough Pain/Agitation Olanzapine 10 mg 11/23/19 21:00 12/11/19 22:04 Zyprexa PO 10 mg HS JOSSY Administration Pantoprazole Sodium 40 mg 12/03/19 21:00 12/12/19 10:20 Pantoprazole 40 Mg Vial IVP 40 mg Q12HR JOSSY Administration Propofol 1,000 mg 12/06/19 09:00 12/10/19 01:50 Propofol 1,000 Mg/100 Ml Vial IV 01/05/20 09:00 1,000 mg INF PRN Administration TO ACHIEVE GOAL RASS Protocol Sodium Bicarbonate 650 mg 11/30/19 15:00 12/12/19 13:36 Sodium Bicarbonate Tab 325 Mg Tab PO 650 mg TID JOSSY Administration Sodium Chloride 10 ml 11/25/19 09:00 12/12/19 10:21 Flush - Normal Saline IVF 10 ml Q12HR JOSSY Administration Spironolactone 100 mg 12/02/19 09:00 12/12/19 10:21 Spironolactone 100 Mg Tab PO 100 mg DAILY JOSSY Administration Vecuronium [place] 10 mg 12/06/19 10:41 12/06/19 22:14 Vecuronium 10 Mg Vial IV 10 mg Q1H PRN Administration AGITATION - Exam General - other findings: Intubated, on vent support. Heart: RRR, no murmur, no gallops, no rubs, normal peripheral pulses Respiratory - other findings: Bilateral coarse breath sounds. Gastrointestinal - other findings: Nontender. Sounds present. Extremities - other findings: No edema noted. Neurological - other findings: Following commands Hosp A/P - Plan 64-year-old female patient admitted in the ICU on ventilator support on account of acute hypoxic respiratory failure with COVID pneumonia. Also has Staphylococcus bacteremia and hypertension. Generally stable. She is small communicative today and follows commands Currently taking of contact COVID precautions. Given duration on ventilator plan to consider trach and PEG later in the week Acute hypoxic respiratory failure Secondary to COVID pneumonia Continue ventilator management Pulmonology following. Right pneumothorax Chest tubes in place. COVID pneumonia Continues anticoagulation Also on steroids. Continue close monitoring. Staph aureus bacteremia Was on oxacillincefazolinnow discontinued ID follow [place] for ventilator associated infection. Antibiotics been changed to vancomycin and cefepime as per ID Secretions sent for culture. 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 Hypertension Was on nicardipine dripcurrently discontinued Continue blood pressure medications and monitoring. Nephrology following. Hyperglycemiaimproved. Blood sugar controlled on NPH 30 every 12 Moderate correctional sliding scale. Continue close monitoring. Hypothyroidism Continue levothyroxine VTE prophylaxistherapeutic: Lovenox Dispositionpending improvement. Prognosis is generally poor. Planning for trach and PEG next week.
[2019-12-12] MEDS: Enoxaparin Sodium 80 MG/0.8 ML SYRINGE SC SCH (21:09)
[2019-12-12] MEDS: Amlodipine 10 MG TAB PO SCH (21:09)
[2019-12-12] MEDS: OLANZapine 5 MG TAB PO SCH (21:12)
[2019-12-13] MEDS: Morphine 2 MG/ML VIAL SLOW IVP PRN ×2 (02:59→20:53)
[2019-12-13] MEDS: Lorazepam 2 MG/ML VIAL SLOW IVP PRN (03:54)
[2019-12-13 05:12] LABS: ALT (SGPT) 11 U/L (8-55); AST (SGOT) 18 U/L (5-34); Albumin 3.1 g/dL (3.4-4.8); Alkaline Phosphatase 171 U/L (40-110); Anion Gap 18 mmol/L (10-20); BUN (Urea Nitrogen) 101 mg/dL (9.8-20.1); Bilirubin, Total 0.4 mg/dL (0.2-1.2); Calc. Creatinine Clearance 49 mL/min (70-130); Calcium 10.2 mg/dL (7.8-10.44); Carbon Dioxide 25 mmol/L (23-31); Chloride 104 mmol/L (98-107); Estimated GFR-MDRD 42; Globulin 3.8 g/dL (2.4-3.5); Glucose 256 mg/dL (80-115); Potassium 3.7 mmol/L (3.5-5.1); Protein, Total 6.9 g/dL (6.0-8.3); Sodium 143 mmol/L (136-145)
[2019-12-13 05:16] LABS: Band 11 % (5-11); Hemoglobin 10.9 g/dL (12.0-16.0); Lymphocytes 7 % (21-51); MDiff Complete? YES; Mean Corpuscular HGB CONC 32.8 g/dL (32.0-36.0); Mean Corpuscular Hemoglobin 32.4 pg (27.0-31.0); Mean Corpuscular Volume 98.6 fL (78.0-98.0); Mean Platelet Volume 9.3 fL (7.4-10.4); Monocytes 1 % (0-10); Neutrophil 81 % (42-75); Platelet Count 326 thou/uL (130-400); RBC Distribution Width 15.2 % (11.5-14.5); Red Blood Cell (RBC) Count 3.35 mill/uL (4.20-5.40); White Blood Cell (WBC) Count 9.6 thou/uL (4.8-10.8)
[2019-12-13] MEDS: HumaLOG 300 UNITS/3 ML VIAL SC PRN ×4 (05:57→21:53)
[2019-12-13] MEDS: Isosorbide Dinitrate 20 MG TAB PO SCH ×3 (05:59→20:22)
[2019-12-13] MEDS: Labetalol 100 MG TAB PO SCH ×3 (05:59→21:52)
[2019-12-13] MEDS: hydrALAZINE 25 MG TAB PO SCH ×3 (05:59→20:22)
[2019-12-13] MEDS: Levothyroxine Sodium 100 MCG TAB PO SCH (06:00)
--- NOTE | 2019-12-13 07:51 | RAD ---
Chest one view HISTORY: Pneumonia. Follow-up. COMPARISON: 12/12/2019. FINDINGS: Cardiac silhouette is magnified by projection. Mediastinum remains slightly shifted leftwar d. Similar in appearance to prior study. Right thoracostomy tubes remain in place. Right pleural space air has increased significantly since t he prior study. Left lung is well-inflated. Tip of the endotracheal catheter now overlies the thoracic inlet. Nasogastric tube descends to the ab domen. IMPRESSION : Interval enlargement of right pneumothorax. Right thoracostomy tubes are unchanged in position. Endotracheal catheter now in good radiographic position.
[2019-12-13 08:00] LABS: Actual Bicarbonate (HCO3a) 22.7 mEq/L (22-28); Base Excess (BEa) -0.8 mEq/L (-2.0 to +3.0); CO2 Tension 33.9 mmHg (35.0-45.0); Calcium, Ionized (arterial) 1.33 mmol/L (1.12-1.30); Carboxyhemoglobin (COHb) 0.4 gm% (0.0-3.0); Hemoglobin (Hb) 13.2 g/dL (12.0-16.0); pH, Arterial 7.44 (7.35-7.45)
[2019-12-13 08:18] LABS: ALV-art Gradient 290.775 mmHg (0-20); Puncture Site RRA
--- NOTE | 2019-12-13 09:09 | PDOC.NEPPN ---
- Subjective Encounter Date: 12/13/19 Encounter Time: 09:06 Subjective: Seen and examined. No new problem. Still intubated and mechanicaly ventilated. tolerating tube feeding. - Objective Vital Signs & Weight: Vital Signs (12 hours) Temp Pulse Resp BP Pulse Ox 12/13/19 08:00 98.1 F 23 H 95 12/13/19 07:34 77 110/78 12/13/19 06:00 20 12/13/19 05:59 78 127/92 H 12/13/19 04:08 78 12/13/19 04:00 97.7 F 23 H 12/13/19 02:00 20 12/13/19 01:55 76 12/13/19 00:00 97.7 F 22 H 12/12/19 23:38 81 12/12/19 22:23 78 112/70 12/12/19 22:00 19 12/12/19 21:13 78 133/92 H 12/12/19 21:09 78 133/92 H Weight Admit Weight 197 lb Weight 183 lb 3.266 oz Most Recent Monitor Data Heart Rate from ECG 74 NIBP 127/86 NIBP BP-Mean 99 Respiration from ECG 16 SpO2 96 I&O: 12/12/19 12/13/19 12/14/19 06:59 06:59 06:59 Intake Total 2859.8 2476 100 Output Total 1994 2515 200 Balance 864.8 -39 -100 Result Diagrams: 12/13/19 04:27 12/13/19 04:27 Additional Labs: Accuchecks 12/13/19 12/12/19 12/12/19 04:06 16:22 10:39 POC Glucose 238 H 165 H 175 H 12/11/19 17:54 POC Glucose 240 H Nephrology ROS - Medication Medications: Active Medications Generic Name Dose Route Start Last Admin Trade Name Freq PRN Reason Stop Dose Admin Acetaminophen 650 mg 11/21/19 05:39 11/21/19 13:23 Tylenol [place] 650 mg Q6H PRN Administration Fever > 101 or Mild Pain Acetaminophen 650 mg 11/24/19 16:43 12/12/19 13:46 Tylenol Elixir PER TUBE 650 mg Q6H PRN Administration Fever > 100.3 Amlodipine Besylate 10 mg 12/06/19 21:00 09/28/20 21:09 Amlodipine 10 Mg Tab PO 10 mg 2100 JOSSY Administration Ascorbic Acid 1,000 mg 11/25/19 09:00 12/12/19 10:24 Vitamin C PO 1,000 mg DAILY JOSSY Administration Cholecalciferol 400 units 11/27/19 09:00 12/12/19 10:19 Vitamin D PER TUBE 400 units DAILY JOSSY Administration Clonidine 0.3 mg 11/23/19 13:00 12/07/19 15:58 Dympzqai-Zzj-0 TD Not Given Q7D JOSSY Dextrose/Water 25 gm 11/21/19 04:06 11/21/19 04:21 Dextrose 50% SLOW IVP 25 gm PRN PRN Administration Hypoglycemia Enoxaparin Sodium 80 mg 11/25/19 21:00 12/12/19 21:09 Lovenox SC 80 mg 2100 JOSSY Administration Fluoxetine HCl 60 mg 11/22/19 09:00 12/12/19 10:18 Prozac PO 60 mg DAILY JOSSY Administration Gabapentin 600 mg 11/21/19 15:00 12/12/19 21:08 Neurontin PO 600 mg TID JOSSY Administration Hydralazine HCl 100 mg 12/06/19 14:00 12/13/19 05:59 Hydralazine 25 Mg Tab PO 100 mg Q8H JOSSY Administration Nicardipine HCl 50 mg/ Sodium 250 mls @ 0 mls/hr 11/24/19 09:45 12/04/19 08:54 Chloride IV 250 mls INF JOSSY Administration Protocol As Directed Fluconazole/Sodium Chloride 100 mls @ 100 mls/hr 12/06/19 09:00 12/12/19 10:16 200 mg/ Device IVPB 100 mls DAILY JOSSY Administration Dexmedetomidine HCl 400 mcg/ 100 mls @ 0 mls/hr 12/10/19 15:00 12/13/19 06:00 Sodium Chloride IVPB 100 mls INF JOSSY Administration Protocol Per Protocol Meropenem 1 gm/ Device 50 mls @ 100 mls/hr 12/11/19 21:00 12/12/19 21:09 IVPB 50 mls Q12HR JOSSY Administration Vancomycin HCl 1.25 gm/ Sodium 250 mls @ 166.667 mls/hr 12/12/19 14:00 12/12/19 13:33 Chloride IVPB 250 mls 1400 JOSSY Administration Insulin Human Lispro 0 units 11/24/19 10:33 12/13/19 05:57 Humalog SC 4 unit .MODERATE SLIDING SC PRN Administration Moderate Correctional Scale Insulin Human NPH 30 unit 11/28/19 09:00 12/12/19 21:11 Humulin N SC 30 unit Q12HR JOSSY Administration Isosorbide Dinitrate 20 mg 12/10/19 14:00 12/13/19 05:59 Isosorbide Dinitrate 20 Mg Tab PO 20 mg Q8H JOSSY Administration Labetalol HCl 20 mg 12/01/19 19:47 12/10/19 02:11 Labetalol Hcl 100 Mg/20 Ml Vial IVPB 20 mg Q2H PRN Administration SBP > 180 Labetalol HCl 200 mg 12/10/19 14:00 12/13/19 05:59 Labetalol 100 Mg Tab PO 200 mg Q8HR JOSSY Administration Levothyroxine Sodium 100 mcg 11/22/19 06:00 12/13/19 06:00 Synthroid PO 100 mcg 0600 JOSSY Administration Lorazepam 2 mg 12/06/19 09:00 12/13/19 03:54 Lorazepam 2 Mg/Ml Vial SLOW IVP 01/05/20 09:00 2 mg Q1H PRN Administration Breakthrough agitation Methylprednisolone Sodium Succinate 80 mg 11/24/19 21:00 12/12/19 21:10 Solu-Medrol IVP 80 mg Q12HR JOSSY Administration Morphine Sulfate 2 mg 12/06/19 09:00 12/13/19 02:59 Morphine 2 Mg/Ml Vial SLOW IVP 01/05/20 09:00 2 mg Q1H PRN Administration Breakthrough Pain/Agitation Olanzapine 10 mg 11/23/19 21:00 12/12/19 21:12 Zyprexa PO 10 mg HS JOSSY Administration Pantoprazole Sodium 40 mg 12/03/19 21:00 12/12/19 21:12 Pantoprazole 40 Mg Vial IVP 40 mg Q12HR JOSSY Administration Propofol 1,000 mg 12/06/19 09:00 12/10/19 01:50 Propofol 1,000 Mg/100 Ml Vial IV 01/05/20 09:00 1,000 mg INF PRN Administration TO ACHIEVE GOAL RASS Protocol Sodium Bicarbonate 650 mg 11/30/19 15:00 12/12/19 21:08 Sodium Bicarbonate Tab 325 Mg Tab PO 650 mg TID JOSSY Administration Sodium Chloride 10 ml 11/25/19 09:00 12/12/19 21:12 Flush - Normal Saline IVF 10 ml Q12HR JOSSY Administration Spironolactone 100 mg 12/02/19 09:00 12/12/19 10:21 Spironolactone 100 Mg Tab PO 100 mg DAILY JOSSY Administration Vecuronium [place] 10 mg 12/06/19 10:41 12/06/19 22:14 Vecuronium 10 Mg Vial IV 10 mg Q1H PRN Administration AGITATION - Exam General - other findings: sedated ENT: normocephalic atraumatic, dry oral mucosa ENT - other findings: ET tube in place Respiratory - other findings: ventilator transmitted sound noted Cardiovascular: RRR Gastrointestinal: soft, non-distended, normal bowel sounds Extremities - other findings: trace fullness of both hands. markedly decreased skin turgor Neurological - other findings: sedated Nephrology Results - Labs Result Diagrams: 12/13/19 04:27 12/13/19 04:27 Lab results: WBC 9.6 thou/uL (4.8-10.8) 12/13/19 04:27 Hgb 10.9 g/dL (12.0-16.0) L 12/13/19 04:27 Hct 33.1 % (36.0-47.0) L 12/13/19 04:27 MCV 98.6 fL (78.0-98.0) H 12/13/19 04:27 Plt Count 326 thou/uL (130-400) 12/13/19 04:27 Neutrophils % 87.4 % (42.0-75.0) H 11/21/19 01:12 Band Neuts % (Manual) 11 % (5-11) 12/13/19 04:27 ABG pH 7.44 (7.35-7.45) 12/13/19 07:45 ABG pCO2 33.9 mmHg (35.0-45.0) L 12/13/19 07:45 ABG pO2 59.0 mmHg (> 80.0) L* 12/13/19 07:45 Sodium 143 mmol/L (136-145) 12/13/19 04:27 Potassium 3.7 mmol/L (3.5-5.1) 12/13/19 04:27 Chloride 104 mmol/L (98-107) 12/13/19 04:27 Carbon Dioxide 25 mmol/L (23-31) 12/13/19 04:27 BUN 101 mg/dL (9.8-20.1) H 12/13/19 04:27 Creatinine 1.50 mg/dL (0.6-1.1) H 12/13/19 04:27 Glucose 256 mg/dL (80-115) H 12/13/19 04:27 Lactic Acid 1.9 mmol/L (0.5-2.2) 11/21/19 01:12 Calcium 10.2 mg/dL (7.8-10.44) 12/13/19 04:27 Total Bilirubin 0.4 mg/dL (0.2-1.2) 12/13/19 04:27 AST 18 U/L (5-34) 12/13/19 04:27 ALT 11 U/L (8-55) 12/13/19 04:27 Alkaline Phosphatase 171 U/L (40-110) H 12/13/19 04:27 Creatine Kinase 191 U/L (29-168) H 11/21/19 02:08 Troponin I 0.013 ng/mL (< 0.028) 11/21/19 01:12 C-Reactive Protein 9.33 mg/dL (= or < 0.5) H 12/10/19 07:05 B-Natriuretic Peptide 56.8 pg/mL (0-100) 11/21/19 01:12 Serum Total Protein 6.9 g/dL (6.0-8.3) 12/13/19 04:27 Albumin 3.1 g/dL (3.4-4.8) L 12/13/19 04:27 Urine Ketones Negative mg/dL (Negative) 12/02/19 14:20 Urine Blood Negative (Negative) 12/02/19 14:20 Urine Nitrite Negative (Negative) 12/02/19 14:20 Ur Leukocyte Esterase Negative Sarahy/uL (Negative) 12/02/19 14:20 Urine RBC 0-3 HPF (0-3) 12/02/19 14:20 Urine WBC 0-3 HPF (0-3) 12/02/19 14:20 Ur Squamous Epith Cells 0-3 HPF (0-3) 12/02/19 14:20 Urine Bacteria None Seen HPF (None Seen) 12/02/19 14:20 Nephrology AP PN - Plan ASSESSMENT: Acute kidney injury due to hemodynamic factors. BUN is still elevated relative to creatinine. Creat is better than recent baseline. Most likely due to decreased muscle mass Hypertension. BP control better. Chronic kidney disease stage 3. Hypernatremia: Resolved Fluid overload. Resolved. Hypoalbuminemia. Improved Metabolic acidosis. Improved with alkali therapy Primary hyperaldosteronism, on spironolactone. Septic shock, resolved. Staphylococcus bacteremia. Acute respiratory failure on the vent. Covid with possible superimposed bacterial pneumonia COVID pneumonia. Multifocal pneumonia. Right-sided pneumothorax. Anemia: Due to acute illness Presumed fungemia given positive blood culture with yeast. PLAN: Continue current antihypertensives with holding parameters Continue spironolactone and monitor serum potassium. Increase of spironolactone dose contemplated Continue oral sodium bicarbonate. Antimicrobial as per ID. Respiratory failure treatment as per [employer].
[2019-12-13] MEDS: MEROPENEM 1 GM/50 ML 1 GM in Premix Bag 1 BAG IVPB SCH ×2 (09:13→20:19)
[2019-12-13] MEDS: Pantoprazole 40 MG VIAL IVP SCH ×2 (09:17→20:21)
[2019-12-13] MEDS: Cholecalciferol (Vitamin D3) 400 UNITS TAB PER TUBE SCH (09:18)
[2019-12-13] MEDS: FLUoxetine HCl 20 MG CAP PO SCH (09:18)
[2019-12-13] MEDS: Gabapentin 300 MG CAP PO SCH ×3 (09:19→20:19)
[2019-12-13] MEDS: methylPREDNISolone Sod Succ/PF 125 MG/2 ML VIAL IVP SCH ×2 (09:19→20:20)
[2019-12-13] MEDS: NPH, Human Insulin Isophane 300 UNIT/3 ML VIAL SC SCH ×2 (09:20→21:51)
[2019-12-13] MEDS: Sodium Bicarbonate Tab 325 MG TAB PO SCH ×3 (09:22→20:21)
[2019-12-13] MEDS: Ascorbic Acid 500 mg Chewable Tablet PO SCH (09:23)
[2019-12-13] MEDS: Spironolactone 100 MG TAB PO SCH (09:23)
[2019-12-13] MEDS: Fluconazole In NaCl,Iso-Osm 200 MG in Premix Bag 1 BAG IVPB SCH (09:24)
[2019-12-13 13:23] LABS: Vancomycin, Trough 19.7 ug/mL
[2019-12-13] MEDS: Vancomycin HCl 1.25 GM in Sodium Chloride 0.9% 250 ML 250 ML IVPB SCH (13:29)
--- NOTE | 2019-12-13 15:51 | PDOC.HOSPP ---
- Subjective Encounter Date: 12/13/19 Encounter Time: 11:00 Subjective: Patient was seen and examined in bed. She was minimally responsiveon ventilator support. She was having physical therapy at the time - Objective Vital Signs & Weight: Vital Signs (12 hours) Temp Pulse Pulse Pulse Resp BP BP 12/13/19 15:14 73 120/83 12/13/19 14:00 23 H 12/13/19 13:26 75 141/97 H 12/13/19 13:24 75 141/97 H 12/13/19 12:00 97.8 F 12/13/19 11:55 29 H 12/13/19 10:48 75 141/97 H 12/13/19 10:25 73 72 134/93 H 12/13/19 10:00 22 H 12/13/19 08:00 98.1 F 23 H 12/13/19 07:34 77 110/78 12/13/19 06:00 20 12/13/19 05:59 78 127/92 H 12/13/19 04:08 78 12/13/19 04:00 97.7 F 23 H BP Pulse Ox Pulse Ox Pulse Ox 12/13/19 15:14 12/13/19 14:00 12/13/19 13:26 12/13/19 13:24 12/13/19 12:00 12/13/19 11:55 12/13/19 10:48 12/13/19 10:25 140/91 H 95 95 12/13/19 10:00 12/13/19 08:00 95 12/13/19 07:34 12/13/19 06:00 12/13/19 05:59 12/13/19 04:08 12/13/19 04:00 Weight Admit Weight 197 lb Weight 183 lb 3.266 oz Most Recent Monitor Data Heart Rate from ECG 72 NIBP 122/82 NIBP BP-Mean 95 Respiration from ECG 18 SpO2 95 I&O: 12/12/19 12/13/19 12/14/19 06:59 06:59 06:59 Intake Total 2859.8 2476 450 Output Total 1994 9618 069 Balance 864.8 -39 -270 Result Diagrams: 12/13/19 04:27 12/13/19 04:27 Additional Labs: Accuchecks 12/13/19 12/13/19 12/13/19 12:05 10:00 04:06 POC Glucose 251 H 308 H 238 H 12/12/19 16:22 POC Glucose 165 H Hospitalist ROS - Medication Medications: Active Medications Generic Name Dose Route Start Last Admin Trade Name Freq PRN Reason Stop Dose Admin Acetaminophen 650 mg 11/21/19 05:39 11/21/19 13:23 Tylenol ID 650 mg Q6H PRN Administration Fever > 101 or Mild Pain Acetaminophen 650 mg 11/24/19 16:43 12/12/19 13:46 Tylenol Elixir PER TUBE 650 mg Q6H PRN Administration Fever > 100.3 Amlodipine Besylate 10 mg 12/06/19 21:00 12/12/19 21:09 Amlodipine 10 Mg Tab PO 10 mg 2100 JOSSY Administration Ascorbic Acid 1,000 mg 11/25/19 09:00 12/13/19 09:23 Vitamin C PO 1,000 mg DAILY JOSSY Administration Cholecalciferol 400 units 11/27/19 09:00 12/13/19 09:18 Vitamin D PER TUBE 400 units DAILY JOSSY Administration Clonidine 0.3 mg 11/23/19 13:00 12/07/19 15:58 [id number]-[id number]-4 TD Not Given Q7D JOSSY Dextrose/Water 25 gm 11/21/19 04:06 11/21/19 04:21 Dextrose 50% SLOW IVP 25 gm PRN PRN Administration Hypoglycemia Enoxaparin Sodium 80 mg 11/25/19 21:00 12/12/19 21:09 Lovenox SC 80 mg 2100 JOSSY Administration Fluoxetine HCl 60 mg 11/22/19 09:00 12/13/19 09:18 Prozac PO 60 mg DAILY JOSSY Administration Gabapentin 600 mg 11/21/19 15:00 12/13/19 14:17 Neurontin PO 600 mg TID JOSSY Administration Hydralazine HCl 100 mg 12/06/19 14:00 12/13/19 13:24 Hydralazine 25 Mg Tab PO 100 mg Q8H JOSSY Administration Nicardipine HCl 50 mg/ Sodium 250 mls @ 0 mls/hr 11/24/19 09:45 12/04/19 08:54 Chloride IV 250 mls INF JOSSY Administration Protocol As Directed Fluconazole/Sodium Chloride 100 mls @ 100 mls/hr 12/06/19 09:00 12/13/19 09:24 200 mg/ Device IVPB 100 mls DAILY JOSSY Administration Dexmedetomidine HCl 400 mcg/ 100 mls @ 0 mls/hr 12/10/19 15:00 12/13/19 13:58 Sodium Chloride IVPB 100 mls INF JOSSY Administration Protocol Per Protocol Meropenem 1 gm/ Device 50 mls @ 100 mls/hr 12/11/19 21:00 12/13/19 09:13 IVPB 50 mls Q12HR JOSSY Administration Vancomycin HCl 1.25 gm/ Sodium 250 mls @ 166.667 mls/hr 12/12/19 14:00 12/13/19 13:29 Chloride IVPB 250 mls 1400 JOSSY Administration Insulin Human Lispro 0 units 11/24/19 10:33 12/13/19 09:58 Humalog SC 8 unit .MODERATE SLIDING SC PRN Administration Moderate Correctional Scale Insulin Human NPH 30 unit 11/28/19 09:00 12/13/19 09:20 Humulin N SC 30 unit Q12HR JOSSY Administration Isosorbide Dinitrate 20 mg 12/10/19 14:00 12/13/19 13:25 Isosorbide Dinitrate 20 Mg Tab PO 20 mg Q8H JOSSY Administration Labetalol HCl 20 mg 12/01/19 19:47 12/10/19 02:11 Labetalol Hcl 100 Mg/20 Ml Vial IVPB 20 mg Q2H PRN Administration SBP > 180 Labetalol HCl 200 mg 12/10/19 14:00 12/13/19 13:26 Labetalol 100 Mg Tab PO 200 mg Q8HR JOSSY Administration Levothyroxine Sodium 100 mcg 11/22/19 06:00 12/13/19 06:00 Synthroid PO 100 mcg 0600 JOSSY Administration Lorazepam 2 mg 12/06/19 09:00 12/13/19 03:54 Lorazepam 2 Mg/Ml Vial SLOW IVP 01/05/20 09:00 2 mg Q1H PRN Administration Breakthrough agitation Methylprednisolone Sodium Succinate 80 mg 11/24/19 21:00 12/13/19 09:19 Solu-Medrol IVP 80 mg Q12HR JOSSY Administration Morphine Sulfate 2 mg 12/06/19 09:00 12/13/19 02:59 Morphine 2 Mg/Ml Vial SLOW IVP 01/05/20 09:00 2 mg Q1H PRN Administration Breakthrough Pain/Agitation Olanzapine 10 mg 11/23/19 21:00 12/12/19 21:12 Zyprexa PO 10 mg HS JOSSY Administration Pantoprazole Sodium 40 mg 12/03/19 21:00 12/13/19 09:17 Pantoprazole 40 Mg Vial IVP 40 mg Q12HR JOSSY Administration Propofol 1,000 mg 12/06/19 09:00 12/10/19 01:50 Propofol 1,000 Mg/100 Ml Vial IV 01/05/20 09:00 1,000 mg INF PRN Administration TO ACHIEVE GOAL RASS Protocol Sodium Bicarbonate 650 mg 11/30/19 15:00 12/13/19 14:18 Sodium Bicarbonate Tab 325 Mg Tab PO 650 mg TID JOSSY Administration Sodium Chloride 10 ml 11/25/19 09:00 12/13/19 09:22 Flush - Normal Saline IVF 10 ml Q12HR JOSSY Administration Spironolactone 100 mg 12/02/19 09:00 12/13/19 09:23 Spironolactone 100 Mg Tab PO 100 mg DAILY JOSSY Administration Vecuronium [place] 10 mg 12/06/19 10:41 12/06/19 22:14 Vecuronium 10 Mg Vial IV 10 mg Q1H PRN Administration AGITATION - Exam General - other findings: In bed, on vent support. Heart: RRR, no murmur, no gallops, no rubs Respiratory - other findings: Bilateral coarse breath sounds. Gastrointestinal - other findings: Soft, bowel sounds present Extremities: 1+ LE edema Neurological - other findings: Not following commands. Hosp A/P - Plan 64-year-old female patient admitted in the ICU on ventilator support on account of acute hypoxic respiratory failure with COVID pneumonia. Also has Staphylococcus bacteremia and hypertension. Generally stable. Currently taking of contact COVID precautions. Given duration on ventilator plan to consider trach and PEG later in the week She is currently in meropenem and vancomycin However physical therapy mobilization. Acute hypoxic respiratory failure Secondary to COVID pneumonia Continue ventilator management Pulmonology following. Right pneumothorax Chest tubes in place. COVID pneumonia Continues anticoagulation Also on steroids. Continue close monitoring. Staph aureus bacteremia Was on oxacillincefazolinnow discontinued ID follow [place]ern for ventilator associated infection. Antibiotics been changed to vancomycin and cefepime as per IDnow meropenem and vancomycin Secretions sent for culture. 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 Hypertension Was on nicardipine dripcurrently discontinued Continue blood pressure medications and monitoring. Nephrology following. Hyperglycemiaimproved. Blood sugar controlled on NPH 30 every 12 Moderate correctional sliding scale. Continue close monitoring. Hypothyroidism Continue levothyroxine VTE prophylaxistherapeutic: Lovenox Dispositionpending improvement. Prognosis is generally poor. Planning for trach and PEG next week.
[2019-12-13] MEDS ORDERED: CEFAZOLIN 2 GM in Premix Bag 1 BAG IVPB SCH (16:15)
--- NOTE | 2019-12-13 16:26 | CON ---
DATE OF CONSULTATION: CHIEF COMPLAINT: Inability to wean from ventilator. HISTORY OF PRESENT ILLNESS: This is a 64-year-old female, who has multiple medical problems, who is admitted with COVID pneumonia, required intubation. They have been unable to wean her from the ventilator. She requires tracheostomy and PEG placement. PAST MEDICAL HISTORY: Significant for Crohn disease, sleep apnea, diabetes, hypertension, COPD, pancreatitis, asthma. PAST SURGICAL HISTORY: She has had appendectomy, cholecystectomy, hysterectomy, kidney stones with stent. She had a MediPort in her right subclavian. SOCIAL HISTORY: She lives with her family. No alcohol. She does smoke a half pack per day. PHYSICAL EXAMINATION: VITAL SIGNS: Temperature 97.8, pulse 73, blood pressure 120/83. GENERAL: She is sedated on the ventilator. She had an endotracheal tube in her mouth as well as a feeding tube. LUNGS: Clear, but she is on high PEEP. ABDOMEN: Soft, nondistended, mildly obese. LABORATORY DATA: White count 9.6, H and H 10 and 33, platelet count 326. Electrolytes are fine. Elevated creatinine 1.5, glucose is 250. ASSESSMENT: Ventilatory dependency and malnutrition. PLAN: Tracheostomy, percutaneous endoscopic gastrostomy. CONSENT: I have discussed the procedure with the family through the nurse. They understand it as well as risks and benefits and gave informed consent. Job ID: [id number]
--- NOTE | 2019-12-13 18:59 | PRG ---
DATE OF SERVICE: 12/13/2019 SUBJECTIVE: Ronda Mosqueda remains mechanically ventilated. She is off isolation. She still has an air leak. OBJECTIVE: LUNGS: Remarkable for rhonchi bilaterally. HEART: Regular rhythm. ABDOMEN: Soft. LABORATORY DATA: She is tolerating decreased ventilatory support. Blood gas today shows pH 7.44, pCO2 of 33, pO2 of 59, and FiO2 of 55 with 8 of PEEP. I turned her PEEP to 7 and turned her FiO2 to 50. ASSESSMENT AND RECOMMENDATIONS: I think it is reasonable to proceed with a tracheostomy and a percutaneous endoscopic gastrostomy tomorrow. I talked to the via phone and he agreed with this approach. I do not feel that she is in a preterminal state and I have explained that ongoing aggressive care, meaning a tracheostomy and a percutaneous endoscopic gastrostomy will require probably a long recovery, but as long as there is a reasonable chance for recovery, the family wants to move forward. I think this is the appropriate recommendation at this time. Her renal function appears to be stable with creatinine of 1.5. CBC is stable with hemoglobin of 10.9 and 326,000 platelets. Her anticoagulants will be held and then we will need to remember to restart them today after her tracheostomy. Job ID: [id number]
[2019-12-13] MEDS: Amlodipine 10 MG TAB PO SCH (20:18)
[2019-12-13] MEDS: OLANZapine 5 MG TAB PO SCH (20:21)
[2019-12-14] MEDS: hydrALAZINE 25 MG TAB PO SCH ×3 (01:23→21:48)
[2019-12-14] MEDS: Levothyroxine Sodium 100 MCG TAB PO SCH (01:23)
[2019-12-14] MEDS: Isosorbide Dinitrate 20 MG TAB PO SCH ×3 (01:23→21:57)
[2019-12-14] MEDS: HumaLOG 300 UNITS/3 ML VIAL SC PRN ×2 (04:36→16:16)
[2019-12-14 05:10] LABS: Band 3 % (5-11); Hemoglobin 11.1 g/dL (12.0-16.0); Lymphocytes 3 % (21-51); MDiff Complete? YES; Mean Corpuscular HGB CONC 33.4 g/dL (32.0-36.0); Mean Corpuscular Hemoglobin 32.7 pg (27.0-31.0); Mean Corpuscular Volume 98.1 fL (78.0-98.0); Mean Platelet Volume 9.5 fL (7.4-10.4); Monocytes 5 % (0-10); Neutrophil 89 % (42-75); Platelet Count 371 thou/uL (130-400); RBC Distribution Width 15.4 % (11.5-14.5); White Blood Cell (WBC) Count 10.5 thou/uL (4.8-10.8)
[2019-12-14 05:19] LABS: ALT (SGPT) 8 U/L (8-55); AST (SGOT) 19 U/L (5-34); Albumin 3.1 g/dL (3.4-4.8); Alkaline Phosphatase 153 U/L (40-110); Anion Gap 19 mmol/L (10-20); BUN (Urea Nitrogen) 104 mg/dL (9.8-20.1); Bilirubin, Total 0.3 mg/dL (0.2-1.2); Calc. Creatinine Clearance 52 mL/min (70-130); Calcium 10.3 mg/dL (7.8-10.44); Carbon Dioxide 24 mmol/L (23-31); Chloride 107 mmol/L (98-107); Estimated GFR-MDRD 45; Globulin 4.1 g/dL (2.4-3.5); Glucose 263 mg/dL (80-115); Potassium 4.5 mmol/L (3.5-5.1); Protein, Total 7.2 g/dL (6.0-8.3); Sodium 145 mmol/L (136-145)
[2019-12-14] MEDS: Labetalol 100 MG TAB PO SCH ×3 (06:01→21:48)
--- NOTE | 2019-12-14 08:10 | RAD ---
XR Chest 1 View Portable History: Pneumonia Comparison: Radiograph prior day Findings: The left apical pneumothorax is slightly decreased in size with apical pleural line between the posterior second and third ribs. Right thoracostomy tube is similar. Endotracheal tube tip at the level of the clavicles. Enteric tube tip below diaphragm although out of field of view. Slight increased confluence of lower lobe airspace opacities. Impression: Slight interval size decrease right apical pneumothorax.
--- NOTE | 2019-12-14 09:26 | PDOC.NEPPN ---
- Subjective Encounter Date: 12/14/19 Encounter Time: 09:25 Subjective: Still intubated and mechanically ventilated. Tube feeding held due to planned Tracheostomy. - Objective Vital Signs & Weight: Vital Signs (12 hours) Temp Pulse Resp BP Pulse Ox 12/14/19 07:53 98 12/14/19 07:49 18 12/14/19 07:42 72 12/14/19 06:01 79 137/90 12/14/19 06:00 22 H 12/14/19 04:00 97.7 F 18 12/14/19 02:54 80 12/14/19 02:00 20 12/14/19 00:00 97.8 F 12/13/19 23:22 78 12/13/19 22:00 19 12/13/19 21:52 76 129/82 Weight Admit Weight 197 lb Weight 175 lb 4.28 oz Most Recent Monitor Data Heart Rate from ECG 73 NIBP 134/92 NIBP BP-Mean 106 Respiration from ECG 21 SpO2 99 I&O: 12/13/19 12/14/19 12/15/19 06:59 06:59 06:59 Intake Total 2476 2320 100 Output Total 2515 1924 150 Balance -39 396 -50 Result Diagrams: 12/14/19 04:20 12/14/19 04:20 Additional Labs: Accuchecks 12/14/19 12/13/19 12/13/19 04:31 21:55 16:15 POC Glucose 222 H 231 H 209 H 12/13/19 12/13/19 12/12/19 12:05 10:00 21:09 POC Glucose 251 H 308 H 231 H Nephrology ROS - Medication Medications: Active Medications Generic Name Dose Route Start Last Admin Trade Name Freq PRN Reason Stop Dose Admin Acetaminophen 650 mg 11/21/19 05:39 11/21/19 13:23 Tylenol [place] 650 mg Q6H PRN Administration Fever > 101 or Mild Pain Acetaminophen 650 mg 11/24/19 16:43 12/12/19 13:46 Tylenol Elixir PER TUBE 650 mg Q6H PRN Administration Fever > 100.3 Amlodipine Besylate 10 mg 12/06/19 21:00 12/13/19 20:18 Amlodipine 10 Mg Tab PO 10 mg 2100 JOSSY Administration Ascorbic Acid 1,000 mg 11/25/19 09:00 12/13/19 09:23 Vitamin C PO 1,000 mg DAILY JOSSY Administration Cholecalciferol 400 units 11/27/19 09:00 12/13/19 09:18 Vitamin D PER TUBE 400 units DAILY JOSSY Administration Clonidine 0.3 mg 11/23/19 13:00 12/07/19 15:58 Uzknvrne-Htg-5 TD Not Given Q7D JOSSY Dextrose/Water 25 gm 11/21/19 04:06 11/21/19 04:21 Dextrose 50% SLOW IVP 25 gm PRN PRN Administration Hypoglycemia Fluoxetine HCl 60 mg 11/22/19 09:00 12/13/19 09:18 Prozac PO 60 mg DAILY JOSSY Administration Gabapentin 600 mg 11/21/19 15:00 12/13/19 20:19 Neurontin PO 600 mg TID JOSSY Administration Hydralazine HCl 100 mg 12/06/19 14:00 12/14/19 01:23 Hydralazine 25 Mg Tab PO Not Given Q8H JOSSY Nicardipine HCl 50 mg/ Sodium 250 mls @ 0 mls/hr 11/24/19 09:45 12/04/19 08:54 Chloride IV 250 mls INF JOSSY Administration Protocol As Directed Fluconazole/Sodium Chloride 100 mls @ 100 mls/hr 12/06/19 09:00 12/13/19 09:24 200 mg/ Device IVPB 100 mls DAILY JOSSY Administration Dexmedetomidine HCl 400 mcg/ 100 mls @ 0 mls/hr 12/10/19 15:00 12/14/19 06:18 Sodium Chloride IVPB 100 mls INF JOSSY Administration Protocol Per Protocol Meropenem 1 gm/ Device 50 mls @ 100 mls/hr 12/11/19 21:00 12/13/19 20:19 IVPB 50 mls Q12HR JOSSY Administration Vancomycin HCl 1.25 gm/ Sodium 250 mls @ 166.667 mls/hr 12/12/19 14:00 12/13/19 13:29 Chloride IVPB 250 mls 1400 JOSSY Administration Insulin Human Lispro 0 units 11/24/19 10:33 12/14/19 04:36 Humalog SC 4 unit .MODERATE SLIDING SC PRN Administration Moderate Correctional Scale Insulin Human NPH 30 unit 11/28/19 09:00 12/13/19 21:51 Humulin N SC 30 unit Q12HR JOSSY Administration Isosorbide Dinitrate 20 mg 12/10/19 14:00 12/14/19 01:23 Isosorbide Dinitrate 20 Mg Tab PO Not Given Q8H JOSSY Labetalol HCl 20 mg 12/01/19 19:47 12/10/19 02:11 Labetalol Hcl 100 Mg/20 Ml Vial IVPB 20 mg Q2H PRN Administration SBP > 180 Labetalol HCl 200 mg 12/10/19 14:00 12/14/19 06:01 Labetalol 100 Mg Tab PO 200 mg Q8HR JOSSY Administration Levothyroxine Sodium 100 mcg 11/22/19 06:00 12/14/19 01:23 Synthroid PO Not Given 0600 [facility] Lorazepam 2 mg 12/06/19 09:00 12/13/19 03:54 Lorazepam 2 Mg/Ml Vial SLOW IVP 01/05/20 09:00 2 mg Q1H PRN Administration Breakthrough agitation Methylprednisolone Sodium Succinate 80 mg 11/24/19 21:00 12/13/19 20:20 Solu-Medrol IVP 80 mg Q12HR JOSSY Administration Morphine Sulfate 2 mg 12/06/19 09:00 12/13/19 20:53 Morphine 2 Mg/Ml Vial SLOW IVP 01/05/20 09:00 2 mg Q1H PRN Administration Breakthrough Pain/Agitation Olanzapine 10 mg 11/23/19 21:00 12/13/19 20:21 Zyprexa PO 10 mg HS JOSSY Administration Pantoprazole Sodium 40 mg 12/03/19 21:00 12/13/19 20:21 Pantoprazole 40 Mg Vial IVP 40 mg Q12HR JOSSY Administration Propofol 1,000 mg 12/06/19 09:00 12/10/19 01:50 Propofol 1,000 Mg/100 Ml Vial IV 01/05/20 09:00 1,000 mg INF PRN Administration TO ACHIEVE GOAL RASS Protocol Sodium Bicarbonate 650 mg 11/30/19 15:00 12/13/19 20:21 Sodium Bicarbonate Tab 325 Mg Tab PO 650 mg TID JOSSY Administration Sodium Chloride 10 ml 11/25/19 09:00 12/13/19 20:22 Flush - Normal Saline IVF 10 ml Q12HR JOSSY Administration Spironolactone 100 mg 12/02/19 09:00 12/13/19 09:23 Spironolactone 100 Mg Tab PO 100 mg DAILY JOSSY Administration Vecuronium [place] 10 mg 12/06/19 10:41 12/06/19 22:14 Vecuronium 10 Mg Vial IV 10 mg Q1H PRN Administration AGITATION - Exam General - other findings: sedated ENT: normocephalic atraumatic ENT - other findings: Et tube in place Respiratory - other findings: Ventilateor transmited sound noted. Right sided chest tubes noted also Cardiovascular: RRR Gastrointestinal: soft, non-distended, normal bowel sounds Extremities - other findings: trace edema of both hand dorsum noted. No edema of other extremities Neurological - other findings: sedated Nephrology Results - Labs Result Diagrams: 12/14/19 04:20 12/14/19 04:20 Lab results: WBC 10.5 thou/uL (4.8-10.8) 12/14/19 04:20 Hgb 11.1 g/dL (12.0-16.0) L 12/14/19 04:20 Hct 33.3 % (36.0-47.0) L 12/14/19 04:20 MCV 98.1 fL (78.0-98.0) H 12/14/19 04:20 Plt Count 371 thou/uL (130-400) 12/14/19 04:20 Neutrophils % 87.4 % (42.0-75.0) H 11/21/19 01:12 Band Neuts % (Manual) 3 % (5-11) L 12/14/19 04:20 ABG pH 7.44 (7.35-7.45) 12/13/19 07:45 ABG pCO2 33.9 mmHg (35.0-45.0) L 12/13/19 07:45 ABG pO2 59.0 mmHg (> 80.0) L* 12/13/19 07:45 Sodium 145 mmol/L (136-145) 12/14/19 04:20 Potassium 4.5 mmol/L (3.5-5.1) 12/14/19 04:20 Chloride 107 mmol/L (98-107) 12/14/19 04:20 Carbon Dioxide 24 mmol/L (23-31) 12/14/19 04:20 BUN 104 mg/dL (9.8-20.1) H 12/14/19 04:20 Creatinine 1.41 mg/dL (0.6-1.1) H 12/14/19 04:20 Glucose 263 mg/dL (80-115) H 12/14/19 04:20 Lactic Acid 1.9 mmol/L (0.5-2.2) 11/21/19 01:12 Calcium 10.3 mg/dL (7.8-10.44) 12/14/19 04:20 Total Bilirubin 0.3 mg/dL (0.2-1.2) 12/14/19 04:20 AST 19 U/L (5-34) 12/14/19 04:20 ALT 8 U/L (8-55) 12/14/19 04:20 Alkaline Phosphatase 153 U/L (40-110) H 12/14/19 04:20 Creatine Kinase 191 U/L (29-168) H 11/21/19 02:08 Troponin I 0.013 ng/mL (< 0.028) 11/21/19 01:12 C-Reactive Protein 9.33 mg/dL (= or < 0.5) H 12/10/19 07:05 B-Natriuretic Peptide 56.8 pg/mL (0-100) 11/21/19 01:12 Serum Total Protein 7.2 g/dL (6.0-8.3) 12/14/19 04:20 Albumin 3.1 g/dL (3.4-4.8) L 12/14/19 04:20 Urine Ketones Negative mg/dL (Negative) 12/02/19 14:20 Urine Blood Negative (Negative) 12/02/19 14:20 Urine Nitrite Negative (Negative) 12/02/19 14:20 Ur Leukocyte Esterase Negative Sarahy/uL (Negative) 12/02/19 14:20 Urine RBC 0-3 HPF (0-3) 12/02/19 14:20 Urine WBC 0-3 HPF (0-3) 12/02/19 14:20 Ur Squamous Epith Cells 0-3 HPF (0-3) 12/02/19 14:20 Urine Bacteria None Seen HPF (None Seen) 12/02/19 14:20 Sodium 145 mmol/L (136-145) 12/14/19 04:20 Potassium 4.5 mmol/L (3.5-5.1) 12/14/19 04:20 Chloride 107 mmol/L (98-107) 12/14/19 04:20 Carbon Dioxide 24 mmol/L (23-31) 12/14/19 04:20 Anion Gap 19 mmol/L (10-20) 12/14/19 04:20 BUN 104 mg/dL (9.8-20.1) H 12/14/19 04:20 Creatinine 1.41 mg/dL (0.6-1.1) H 12/14/19 04:20 Glucose 263 mg/dL (80-115) H 12/14/19 04:20 Calcium 10.3 mg/dL (7.8-10.44) 12/14/19 04:20 Phosphorus 3.9 mg/dL (2.3-4.7) 12/06/19 03:35 Magnesium 1.8 mg/dL (1.6-2.6) 12/06/19 03:35 Albumin 3.1 g/dL (3.4-4.8) L 12/14/19 04:20 Nephrology AP PN - Plan ASSESSMENT: Worsening azotemia: BUN today is 104. Most likely related to volume contraction. Tube feeding is held. catabolic state as well as steroid and CKD are other factors Acute kidney injury due to hemodynamic factors. BUN is still elevated relative to creatinine. Creat is better than recent baseline. Most likely due to decreased muscle mass Hypertension. BP control better. Chronic kidney disease stage 3. Hypernatremia: Resolved Fluid overload. Resolved. Hypoalbuminemia. Improved Metabolic acidosis. Improved with alkali therapy Primary hyperaldosteronism, on spironolactone. Septic shock, resolved. Staphylococcus bacteremia. Acute respiratory failure on the vent. Covid with possible superimposed bacterial pneumonia COVID pneumonia. Multifocal pneumonia. Right-sided pneumothorax. Anemia: Due to acute illness Presumed fungemia given positive blood culture with yeast. PLAN: Continue supportive care. Restart tube feeding after surgery Continue current antihypertensives with holding parameters Continue spironolactone and monitor serum potassium. Continue oral sodium bicarbonate. Antimicrobial as per ID. Respiratory failure treatment as per Stock Speculator.
[2019-12-14] MEDS: methylPREDNISolone Sod Succ/PF 125 MG/2 ML VIAL IVP SCH ×2 (10:09→21:47)
[2019-12-14] MEDS: Fluconazole In NaCl,Iso-Osm 200 MG in Premix Bag 1 BAG IVPB SCH (10:09)
[2019-12-14] MEDS: Pantoprazole 40 MG VIAL IVP SCH ×2 (10:10→21:49)
[2019-12-14] MEDS: MEROPENEM 1 GM/50 ML 1 GM in Premix Bag 1 BAG IVPB SCH ×2 (10:10→21:52)
[2019-12-14] MEDS ORDERED: Lidocaine 1% (PF) 30 ML VIAL ONE (10:22)
[2019-12-14] MEDS ORDERED: Bupivacaine/Epinephrine 0.25% 30 ML VIAL ONE (10:22)
[2019-12-14] MEDS ORDERED: Rocuronium Bromide 10 MG/ML (10ML VIAL) ONE (10:43)
[2019-12-14] MEDS ORDERED: Midazolam HCl 2 mg/2 ml Vial ONE (10:43)
[2019-12-14] MEDS ORDERED: PROPOFOL 200 MG/20 ML VIAL ONE (10:43)
[2019-12-14] MEDS ORDERED: Ketamine 50 MG/ML (10ML VIAL) ONE (10:44)
[2019-12-14] MEDS: Spironolactone 100 MG TAB PO SCH (11:01)
[2019-12-14] MEDS: NPH, Human Insulin Isophane 300 UNIT/3 ML VIAL SC SCH ×2 (11:01→21:51)
[2019-12-14] MEDS: FLUoxetine HCl 20 MG CAP PO SCH (11:01)
[2019-12-14] MEDS: Sodium Bicarbonate Tab 325 MG TAB PO SCH ×3 (11:01→21:49)
[2019-12-14] MEDS: Ascorbic Acid 500 mg Chewable Tablet PO SCH (11:01)
[2019-12-14] MEDS: Cholecalciferol (Vitamin D3) 400 UNITS TAB PER TUBE SCH (11:01)
[2019-12-14] MEDS: Gabapentin 300 MG CAP PO SCH ×3 (11:01→21:48)
[2019-12-14] MEDS: Morphine 2 MG/ML VIAL SLOW IVP PRN (13:29)
[2019-12-14] MEDS: cloNIDine 0.3mg/24 Hour PATCH TD SCH (13:38)
[2019-12-14] MEDS: Vancomycin HCl 1.25 GM in Sodium Chloride 0.9% 250 ML 250 ML IVPB SCH (14:07)
--- NOTE | 2019-12-14 14:45 | PDOC.HOSPP ---
- Subjective Encounter Date: 12/14/19 - Objective Vital Signs & Weight: Vital Signs (12 hours) Temp Pulse Resp BP Pulse Ox 12/14/19 14:08 77 143/107 H 12/14/19 14:00 21 H 12/14/19 12:16 97.6 F 12/14/19 10:43 71 12/14/19 10:00 19 12/14/19 08:00 97.8 F 12/14/19 07:53 98 12/14/19 07:49 18 12/14/19 07:42 72 12/14/19 06:01 79 137/90 12/14/19 06:00 22 H 12/14/19 04:00 97.7 F 18 12/14/19 02:54 80 Weight Admit Weight 197 lb Weight 175 lb 4.28 oz Most Recent Monitor Data Heart Rate from ECG 78 NIBP 143/102 NIBP BP-Mean 115 Respiration from ECG 18 SpO2 97 I&O: 12/13/19 12/14/19 12/15/19 06:59 06:59 06:59 Intake Total 2476 2320 100 Output Total 2515 1924 550 Balance -39 396 -450 Result Diagrams: 12/14/19 04:20 12/14/19 04:20 Additional Labs: Accuchecks 12/14/19 12/14/19 12/13/19 10:28 04:31 21:55 POC Glucose 202 H 222 H 231 H 12/13/19 12/12/19 16:15 21:09 POC Glucose 209 H 231 H Hospitalist ROS - Medication Medications: Active Medications Generic Name Dose Route Start Last Admin Trade Name Tedq PRN Reason Stop Dose Admin Acetaminophen 650 mg 11/21/19 05:39 11/21/19 13:23 Tylenol [place] 650 mg Q6H PRN Administration Fever > 101 or Mild Pain Acetaminophen 650 mg 11/24/19 16:43 12/12/19 13:46 Tylenol Elixir PER TUBE 650 mg Q6H PRN Administration Fever > 100.3 Amlodipine Besylate 10 mg 12/06/19 21:00 12/13/19 20:18 Amlodipine 10 Mg Tab PO 10 mg 2100 JOSSY Administration Ascorbic Acid 1,000 mg 11/25/19 09:00 12/14/19 11:01 Vitamin C PO Not Given DAILY [facility] Cholecalciferol 400 units 11/27/19 09:00 12/14/19 11:01 Vitamin D PER TUBE Not Given DAILY [facility] Clonidine 0.3 mg 11/23/19 13:00 12/14/19 13:38 [id number] TD 0.3 mg Q7D JOSSY Administration Dextrose/Water 25 gm 11/21/19 04:06 11/21/19 04:21 Dextrose 50% SLOW IVP 25 gm PRN PRN Administration Hypoglycemia Fluoxetine HCl 60 mg 11/22/19 09:00 12/14/19 11:01 Prozac PO Not Given DAILY JOS[facility] Gabapentin 600 mg 11/21/19 15:00 12/14/19 14:08 Neurontin PO 600 mg TID JOSSY Administration Hydralazine HCl 100 mg 12/06/19 14:00 12/14/19 14:08 Hydralazine 25 Mg Tab PO 100 mg Q8H JOSSY Administration Nicardipine HCl 50 mg/ Sodium 250 mls @ 0 mls/hr 11/24/19 09:45 12/04/19 08:54 Chloride IV 250 mls INF JOSSY Administration Protocol As Directed Fluconazole/Sodium Chloride 100 mls @ 100 mls/hr 12/06/19 09:00 12/14/19 10:09 200 mg/ Device IVPB 100 mls DAILY JOSSY Administration Dexmedetomidine HCl 400 mcg/ 100 mls @ 0 mls/hr 12/10/19 15:00 12/14/19 06:18 Sodium Chloride IVPB 100 mls INF JOSSY Administration Protocol Per Protocol Meropenem 1 gm/ Device 50 mls @ 100 mls/hr 12/11/19 21:00 12/14/19 10:10 IVPB 50 mls Q12HR JOSSY Administration Vancomycin HCl 1.25 gm/ Sodium 250 mls @ 166.667 mls/hr 12/12/19 14:00 12/14/19 14:07 Chloride IVPB 250 mls 1400 JOSSY Administration Insulin Human Lispro 0 units 11/24/19 10:33 12/14/19 04:36 Humalog SC 4 unit .MODERATE SLIDING SC PRN Administration Moderate Correctional Scale Insulin Human NPH 30 unit 11/28/19 09:00 12/14/19 11:01 Humulin N SC Not Given Q12HR JOSSY Isosorbide Dinitrate 20 mg 12/10/19 14:00 12/14/19 01:23 Isosorbide Dinitrate 20 Mg Tab PO Not Given Q8H JOSSY Labetalol HCl 20 mg 12/01/19 19:47 12/10/19 02:11 Labetalol Hcl 100 Mg/20 Ml Vial IVPB 20 mg Q2H PRN Administration SBP > 180 Labetalol HCl 200 mg 12/10/19 14:00 12/14/19 14:08 Labetalol 100 Mg Tab PO 200 mg Q8HR JOSSY Administration Levothyroxine Sodium 100 mcg 11/22/19 06:00 12/14/19 01:23 Synthroid PO Not Given 0600 [facility] Lorazepam 2 mg 12/06/19 09:00 12/13/19 03:54 Lorazepam 2 Mg/Ml Vial SLOW IVP 01/05/20 09:00 2 mg Q1H PRN Administration Breakthrough agitation Methylprednisolone Sodium Succinate 80 mg 11/24/19 21:00 12/14/19 10:09 Solu-Medrol IVP 80 mg Q12HR JOSSY Administration Morphine Sulfate 2 mg 12/06/19 09:00 12/14/19 13:29 Morphine 2 Mg/Ml Vial SLOW IVP 01/05/20 09:00 2 mg Q1H PRN Administration Breakthrough Pain/Agitation Olanzapine 10 mg 11/23/19 21:00 12/13/19 20:21 Zyprexa PO 10 mg HS JOSSY Administration Pantoprazole Sodium 40 mg 12/03/19 21:00 12/14/19 10:10 Pantoprazole 40 Mg Vial IVP 40 mg Q12HR JOSSY Administration Propofol 1,000 mg 12/06/19 09:00 12/10/19 01:50 Propofol 1,000 Mg/100 Ml Vial IV 01/05/20 09:00 1,000 mg INF PRN Administration TO ACHIEVE GOAL RASS Protocol Sodium Bicarbonate 650 mg 11/30/19 15:00 12/14/19 14:07 Sodium Bicarbonate Tab 325 Mg Tab PO 650 mg TID JOSSY Administration Sodium Chloride 10 ml 11/25/19 09:00 12/14/19 13:40 Flush - Normal Saline IVF 10 ml Q12HR JOSSY Administration Spironolactone 100 mg 12/02/19 09:00 12/14/19 11:01 Spironolactone 100 Mg Tab PO Not Given DAILY [facility] Vecuronium [place] 10 mg 12/06/19 10:41 12/06/19 22:14 Vecuronium 10 Mg Vial IV 10 mg Q1H PRN Administration AGITATION Hosp A/P - Plan 64-year-old female patient admitted in the ICU on ventilator support on account of acute hypoxic respiratory failure with COVID pneumonia. Also has Staphylococcus bacteremia and hypertension. Generally stable. Currently taking of contact COVID precautions. Given duration on ventilator plan to consider trach and PEG later in the week She is currently in meropenem and vancomycin However physical therapy mobilization. Acute hypoxic respiratory failure Secondary to COVID pneumonia Continue ventilator management Pulmonology following. Right pneumothorax Chest tubes in place. COVID pneumonia Continues anticoagulation Also on steroids. Continue close monitoring. Staph aureus bacteremia Was on oxacillincefazolinnow discontinued ID follow Consern for ventilator associated infection. Antibiotics been changed to vancomycin and cefepime as per IDnow meropenem and vancomycin Secretions sent for culture. 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 Hypertension Was on nicardipine dripcurrently discontinued Continue blood pressure medications and monitoring. Nephrology following. Hyperglycemiaimproved. Blood sugar controlled on NPH 30 every 12 Moderate correctional sliding scale. Continue close monitoring. Hypothyroidism Continue levothyroxine VTE prophylaxistherapeutic: Lovenox Dispositionpending improvement. Prognosis is generally poor. Planning for trach and PEG next week.
--- NOTE | 2019-12-14 15:07 | PDOC.HOSPP ---
- Subjective Encounter Date: 12/14/19 Encounter Time: 15:05 Subjective: Patient was seen and examined in bed. She had just come up from having a trach and PEG placed. She is generally stable. Minimally following commands. - Objective Vital Signs & Weight: Vital Signs (12 hours) Temp Pulse Resp BP Pulse Ox 12/14/19 14:45 79 12/14/19 14:08 77 143/107 H 12/14/19 14:00 21 H 12/14/19 12:16 97.6 F 12/14/19 10:43 71 12/14/19 10:00 19 12/14/19 08:00 97.8 F 12/14/19 07:53 98 12/14/19 07:49 18 12/14/19 07:42 72 12/14/19 06:01 79 137/90 12/14/19 06:00 22 H 12/14/19 04:00 97.7 F 18 Weight Admit Weight 197 lb Weight 175 lb 4.28 oz Most Recent Monitor Data Heart Rate from ECG 78 NIBP 148/98 NIBP BP-Mean 114 Respiration from ECG 17 SpO2 98 I&O: 12/13/19 12/14/19 12/15/19 06:59 06:59 06:59 Intake Total 2476 2320 100 Output Total 2515 1924 650 Balance -39 396 -550 Result Diagrams: 12/14/19 04:20 12/14/19 04:20 Additional Labs: Accuchecks 12/14/19 12/14/19 12/13/19 10:28 04:31 21:55 POC Glucose 202 H 222 H 231 H 12/13/19 12/12/19 16:15 21:09 POC Glucose 209 H 231 H Hospitalist ROS - Medication Medications: Active Medications Generic Name Dose Route Start Last Admin Trade Name Freq PRN Reason Stop Dose Admin Acetaminophen 650 mg 11/21/19 05:39 11/21/19 13:23 Tylenol [place] 650 mg Q6H PRN Administration Fever > 101 or Mild Pain Acetaminophen 650 mg 11/24/19 16:43 12/12/19 13:46 Tylenol Elixir PER TUBE 650 mg Q6H PRN Administration Fever > 100.3 Amlodipine Besylate 10 mg 12/06/19 21:00 12/13/19 20:18 Amlodipine 10 Mg Tab PO 10 mg 2100 JOSSY Administration Ascorbic Acid 1,000 mg 11/25/19 09:00 12/14/19 11:01 Vitamin C PO Not Given DAILY [facility] Cholecalciferol 400 units 11/27/19 09:00 12/14/19 11:01 Vitamin D PER TUBE Not Given DAILY [facility] Clonidine 0.3 mg 11/23/19 13:00 12/14/19 13:38 [id number] TD 0.3 mg Q7D JOSSY Administration Dextrose/Water 25 gm 11/21/19 04:06 11/21/19 04:21 Dextrose 50% SLOW IVP 25 gm PRN PRN Administration Hypoglycemia Fluoxetine HCl 60 mg 11/22/19 09:00 12/14/19 11:01 Prozac PO Not Given DAILY [facility] Gabapentin 600 mg 11/21/19 15:00 12/14/19 14:08 Neurontin PO 600 mg TID JOSSY Administration Hydralazine HCl 100 mg 12/06/19 14:00 12/14/19 14:08 Hydralazine 25 Mg Tab PO 100 mg Q8H JOSSY Administration Nicardipine HCl 50 mg/ Sodium 250 mls @ 0 mls/hr 11/24/19 09:45 12/04/19 08:54 Chloride IV 250 mls INF JOSSY Administration Protocol As Directed Fluconazole/Sodium Chloride 100 mls @ 100 mls/hr 12/06/19 09:00 12/14/19 10:09 200 mg/ Device IVPB 100 mls DAILY [facility] Administration Dexmedetomidine HCl 400 mcg/ 100 mls @ 0 mls/hr 12/10/19 15:00 12/14/19 06:18 Sodium Chloride IVPB 100 mls INF JOSSY Administration Protocol Per Protocol Meropenem 1 gm/ Device 50 mls @ 100 mls/hr 12/11/19 21:00 12/14/19 10:10 IVPB 50 mls Q12HR JOSSY Administration Vancomycin HCl 1.25 gm/ Sodium 250 mls @ 166.667 mls/hr 12/12/19 14:00 12/14/19 14:07 Chloride IVPB 250 mls 1400 JOSSY Administration Insulin Human Lispro 0 units 11/24/19 10:33 12/14/19 04:36 Humalog SC 4 unit .MODERATE SLIDING SC PRN Administration Moderate Correctional Scale Insulin Human NPH 30 unit 11/28/19 09:00 12/14/19 11:01 Humulin N SC Not Given Q12HR JOSSY Isosorbide Dinitrate 20 mg 12/10/19 14:00 12/14/19 01:23 Isosorbide Dinitrate 20 Mg Tab PO Not Given Q8H JOSSY Labetalol HCl 20 mg 12/01/19 19:47 12/10/19 02:11 Labetalol Hcl 100 Mg/20 Ml Vial IVPB 20 mg Q2H PRN Administration SBP > 180 Labetalol HCl 200 mg 12/10/19 14:00 12/14/19 14:08 Labetalol 100 Mg Tab PO 200 mg Q8HR JOSSY Administration Levothyroxine Sodium 100 mcg 11/22/19 06:00 12/14/19 01:23 Synthroid PO Not Given 06 [facility] Lorazepam 2 mg 12/06/19 09:00 12/13/19 03:54 Lorazepam 2 Mg/Ml Vial SLOW IVP 01/05/20 09:00 2 mg Q1H PRN Administration Breakthrough agitation Methylprednisolone Sodium Succinate 80 mg 11/24/19 21:00 12/14/19 10:09 Solu-Medrol IVP 80 mg Q12HR JOSSY Administration Morphine Sulfate 2 mg 12/06/19 09:00 12/14/19 13:29 Morphine 2 Mg/Ml Vial SLOW IVP 01/05/20 09:00 2 mg Q1H PRN Administration Breakthrough Pain/Agitation Olanzapine 10 mg 11/23/19 21:00 12/13/19 20:21 Zyprexa PO 10 mg HS JOSSY Administration Pantoprazole Sodium 40 mg 12/03/19 21:00 12/14/19 10:10 Pantoprazole 40 Mg Vial IVP 40 mg Q12HR JOSSY Administration Propofol 1,000 mg 12/06/19 09:00 12/10/19 01:50 Propofol 1,000 Mg/100 Ml Vial IV 01/05/20 09:00 1,000 mg INF PRN Administration TO ACHIEVE GOAL RASS Protocol Sodium Bicarbonate 650 mg 11/30/19 15:00 12/14/19 14:07 Sodium Bicarbonate Tab 325 Mg Tab PO 650 mg TID JOSSY Administration Sodium Chloride 10 ml 11/25/19 09:00 12/14/19 13:40 Flush - Normal Saline IVF 10 ml Q12HR JOSSY Administration Spironolactone 100 mg 12/02/19 09:00 12/14/19 11:01 Spironolactone 100 Mg Tab PO Not Given DAILY [facility] Vecuronium [place] 10 mg 12/06/19 10:41 12/06/19 22:14 Vecuronium 10 Mg Vial IV 10 mg Q1H PRN Administration AGITATION - Exam General - other findings: In bed, minimally responsive. On vent support Heart - other findings: S2 present and normal.Medical steroids. Respiratory - other findings: Coarse breath sounds bilaterally. Gastrointestinal - other findings: Soft, no organomegaly bowel sounds present. Extremities - other findings: Trace pedal edema bilaterally. Hosp A/P - Plan 64-year-old female patient admitted in the ICU on ventilator support on account of acute hypoxic respiratory failure with COVID pneumonia. Also has Staphylococcus bacteremia and hypertension. Generally stable. Currently taking of contact COVID precautions. Received a trach and PEG today She is currently in meropenem and vancomycin Physical therapy is following and helping to mobilize. Acute hypoxic respiratory failure Secondary to COVID pneumonia Continue ventilator management Pulmonology following. Right pneumothorax Chest tubes in place. COVID pneumonia Continues anticoagulation Also on steroids. Continue close monitoring. Staph aureus bacteremia Was on oxacillincefazolinnow discontinued ID follow [place] for ventilator associated infection. Antibiotics been changed to vancomycin and cefepime as per IDnow meropenem and vancomycin Secretions sent for culture. 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 Hypertension Was on nicardipine dripcurrently discontinued Continue blood pressure medications and monitoring. Nephrology following. Hyperglycemiaimproved. Blood sugar controlled on NPH 30 every 12 Moderate correctional sliding scale. Continue close monitoring. Hypothyroidism Continue levothyroxine VTE prophylaxistherapeutic: Lovenox Dispositionpending improvement. Prognosis is generally poor. Planning for trach and PEG next week.
--- NOTE | 2019-12-14 16:50 | OP ---
DATE OF PROCEDURE: 12/14/2019 PREOPERATIVE DIAGNOSES: Respiratory failure, ventilatory dependency. PROCEDURES PERFORMED: Tracheostomy, percutaneous endoscopic gastrostomy. INDICATIONS: This is a 64-year-old female, who developed COVID, had multiple underlying health issues, unable to wean from the ventilator. FINDINGS: An 8 Shiley tracheostomy tube was placed. DESCRIPTION OF PROCEDURE: After informed consent was obtained, the patient was taken to the operative room, given general endotracheal anesthesia, placed in supine position. Video endoscope was inserted under direct vision. The stomach was insufflated with air. Her abdomen was prepped and draped in usual fashion. Percutaneous compression revealed optimal location for the tube. Local anesthesia was infiltrated subcutaneously and deep. An incision made in the skin. The introducer needle was inserted transcutaneously into the stomach. A guidewire was inserted. The guidewire was grasped with a snare and pulled through the mouth. The guidewire was then connected to the feeding tube. The feeding tube was then brought retrograde through the stomach and anterior abdominal wall. A flange was then inserted over the tube and used to secure it to the abdominal wall. Then, the clip was placed on the tube. The tube was divided and the end piece placed. Sterile bandage applied and then the patient's neck was prepped and draped in usual fashion. Local anesthesia was infiltrated subcutaneously and deep. A transverse cervical incision was performed 2 cm above the sternal notch. Subcu divided sharply. The midline strap muscles were and retracted laterally. 2-0 Prolene suture was placed through each side of midline. The midline was incised with 11 blade. The trachea spread. The endotracheal tube was visualized. The endotracheal tube was removed under direct vision and the #8 Shiley cuffed tube was inserted. This was then connected to the ventilator, showing good waveform of CO2 and ventilation was good, hemostasis assured. Cervical collar restraint device was placed. Sterile bandage applied. The patient tolerated the procedure well, transferred to the ICU in serious, but stable condition. Job ID: [id number]
--- NOTE | 2019-12-14 17:22 | PRG ---
DATE OF SERVICE: 12/14/2019 SUBJECTIVE: Ronda Mosqueda underwent a trach and a PEG today. She is doing well. OBJECTIVE: VITAL SIGNS: She is afebrile. Blood pressure 151/100, heart rates in the 70s, respiratory rates in the teens. LUNGS: Clear. HEART: Regular rhythm. ABDOMEN: Soft. EXTREMITIES: Without asymmetry. LABORATORY DATA: White count 10.5, hemoglobin 11.1, and platelets 371. Sodium 145, potassium 4.5, chloride 107, bicarb 24, BUN 104, and creatinine 1.41. IMPRESSION: COVID pneumonia, clinically stable now with a trach and a PEG. Hopefully, we can get more aggressive about weaning towards a trach collar during the day. She is clinically stable. Job ID: [id number]
[2019-12-14] MEDS: OLANZapine 5 MG TAB PO SCH (21:49)
[2019-12-14] MEDS: Amlodipine 10 MG TAB PO SCH (21:49)
[2019-12-15 05:34] LABS: ALT (SGPT) 9 U/L (8-55); AST (SGOT) 17 U/L (5-34); Albumin 3.2 g/dL (3.4-4.8); Alkaline Phosphatase 146 U/L (40-110); Anion Gap 17 mmol/L (10-20); BUN (Urea Nitrogen) 90 mg/dL (9.8-20.1); Bilirubin, Total 0.4 mg/dL (0.2-1.2); Calc. Creatinine Clearance 53 mL/min (70-130); Calcium 10.5 mg/dL (7.8-10.44); Carbon Dioxide 25 mmol/L (23-31); Chloride 114 mmol/L (98-107); Estimated GFR-MDRD 48; Globulin 3.7 g/dL (2.4-3.5); Glucose 158 mg/dL (80-115); Potassium 4.1 mmol/L (3.5-5.1); Protein, Total 6.9 g/dL (6.0-8.3); Sodium 152 mmol/L (136-145)
[2019-12-15 05:44] LABS: Band 12 % (5-11); Hemoglobin 11.5 g/dL (12.0-16.0); Lymphocytes 2 % (21-51); MDiff Complete? YES; Mean Corpuscular HGB CONC 32.9 g/dL (32.0-36.0); Mean Corpuscular Hemoglobin 32.7 pg (27.0-31.0); Mean Corpuscular Volume 99.2 fL (78.0-98.0); Mean Platelet Volume 8.8 fL (7.4-10.4); Monocytes 2 % (0-10); Myelocyte 1 % (0-0); Neutrophil 83 % (42-75); Platelet Count 447 thou/uL (130-400); RBC Distribution Width 15.4 % (11.5-14.5); Red Blood Cell (RBC) Count 3.53 mill/uL (4.20-5.40); White Blood Cell (WBC) Count 13.4 thou/uL (4.8-10.8)
[2019-12-15] MEDS: Labetalol 100 MG TAB PO SCH ×3 (06:08→22:22)
[2019-12-15] MEDS: Levothyroxine Sodium 100 MCG TAB PO SCH (06:08)
[2019-12-15] MEDS: hydrALAZINE 25 MG TAB PO SCH ×3 (06:08→22:21)
[2019-12-15] MEDS: Isosorbide Dinitrate 20 MG TAB PO SCH ×3 (06:08→22:23)
--- NOTE | 2019-12-15 07:54 | RAD ---
Chest AP view INDICATION: Pneumonia COMPARISON: December 14, 2019 FINDINGS: Lungs: The bilateral airspace disease particularly worse in the right lower lobe persists. Cardiac silhouette: Cardiomegaly is stable. Pulmonary vasculature: Normal Pleural spaces: The right-sided pneumothorax is stable to slightly larger. Right-sided thoracostomy tubes are unchanged in position. Upper abdomen: No abnormality seen. Osseous structures: No acute osseous abnormality. Additional findings: None. IMPRESSION: Stable to slightly larger right-sided pneumothorax. Stable bilateral airspace disease and cardiomegal y
[2019-12-15] MEDS: Gabapentin 300 MG CAP PO SCH ×3 (08:47→20:05)
[2019-12-15] MEDS: Ascorbic Acid 500 mg Chewable Tablet PO SCH (08:47)
[2019-12-15] MEDS: FLUoxetine HCl 20 MG CAP PO SCH (08:48)
[2019-12-15] MEDS: Spironolactone 100 MG TAB PO SCH (08:48)
[2019-12-15] MEDS: Pantoprazole 40 MG VIAL IVP SCH ×2 (08:48→20:09)
[2019-12-15] MEDS: methylPREDNISolone Sod Succ/PF 125 MG/2 ML VIAL IVP SCH ×2 (08:49→20:05)
[2019-12-15] MEDS: Cholecalciferol (Vitamin D3) 400 UNITS TAB PER TUBE SCH (08:49)
[2019-12-15] MEDS: NPH, Human Insulin Isophane 300 UNIT/3 ML VIAL SC SCH ×2 (08:55→20:56)
[2019-12-15] MEDS: MEROPENEM 1 GM/50 ML 1 GM in Premix Bag 1 BAG IVPB SCH ×2 (09:20→20:08)
[2019-12-15] MEDS: Fluconazole In NaCl,Iso-Osm 200 MG in Premix Bag 1 BAG IVPB SCH (09:22)
--- NOTE | 2019-12-15 09:27 | PDOC.NEPPN ---
- Subjective Encounter Date: 12/15/19 Encounter Time: 09:26 Subjective: Seen and examined. Had tracheostomy anad PEG tube placement yesterday. Off sedatives. still mechanically ventilated. - Objective Vital Signs & Weight: Vital Signs (12 hours) Temp Pulse Resp BP 12/15/19 07:33 79 12/15/19 06:08 75 143/92 H 12/15/19 06:00 20 12/15/19 04:00 99.3 F 19 12/15/19 02:00 21 H 12/15/19 00:00 98.9 F 21 H 12/14/19 22:00 22 H 12/14/19 21:49 88 153/102 H 12/14/19 21:48 88 153/102 H Weight Admit Weight 197 lb Weight 183 lb 3.266 oz Most Recent Monitor Data Heart Rate from ECG 82 NIBP 143/92 NIBP BP-Mean 109 Respiration from ECG 16 SpO2 99 I&O: 12/14/19 12/15/19 12/16/19 06:59 06:59 06:59 Intake Total 2320 1246.5 Output Total 1924 1770 Balance 396 -523.5 Result Diagrams: 12/15/19 04:25 12/15/19 04:25 Additional Labs: Accuchecks 12/15/19 12/14/19 12/14/19 09:03 16:20 10:28 POC Glucose 133 H 204 H 202 H Nephrology ROS - Medication Medications: Active Medications Generic Name Dose Route Start Last Admin Trade Name Freq PRN Reason Stop Dose Admin Acetaminophen 650 mg 11/21/19 05:39 11/21/19 13:23 Tylenol SD 650 mg Q6H PRN Administration Fever > 101 or Mild Pain Acetaminophen 650 mg 11/24/19 16:43 12/12/19 13:46 Tylenol Elixir PER TUBE 650 mg Q6H PRN Administration Fever > 100.3 Amlodipine Besylate 10 mg 12/06/19 21:00 12/14/19 21:49 Amlodipine 10 Mg Tab PO 10 mg 2100 JOSSY Administration Ascorbic Acid 1,000 mg 11/25/19 09:00 12/15/19 08:47 Vitamin C PO 1,000 mg DAILY JOSSY Administration Cholecalciferol 400 units 11/27/19 09:00 12/15/19 08:49 Vitamin D PER TUBE 400 units DAILY JOSSY Administration Clonidine 0.3 mg 11/23/19 13:00 12/14/19 13:38 Oqeyxpyf-Hxq-5 TD 0.3 mg Q7D JOSSY Administration Dextrose/Water 25 gm 11/21/19 04:06 11/21/19 04:21 Dextrose 50% SLOW IVP 25 gm PRN PRN Administration Hypoglycemia Fluoxetine HCl 60 mg 11/22/19 09:00 12/15/19 08:48 Prozac PO 60 mg DAILY JOSSY Administration Gabapentin 600 mg 11/21/19 15:00 12/15/19 08:47 Neurontin PO 600 mg TID JOSSY Administration Hydralazine HCl 100 mg 12/06/19 14:00 12/15/19 06:08 Hydralazine 25 Mg Tab PO 100 mg Q8H JOSSY Administration Nicardipine HCl 50 mg/ Sodium 250 mls @ 0 mls/hr 11/24/19 09:45 12/04/19 08:54 Chloride IV 250 mls INF JOSSY Administration Protocol As Directed Fluconazole/Sodium Chloride 100 mls @ 100 mls/hr 12/06/19 09:00 12/15/19 09:22 200 mg/ Device IVPB 100 mls DAILY JOSSY Administration Dexmedetomidine HCl 400 mcg/ 100 mls @ 0 mls/hr 12/10/19 15:00 12/14/19 06:18 Sodium Chloride IVPB 100 mls INF JOSSY Administration Protocol Per Protocol Meropenem 1 gm/ Device 50 mls @ 100 mls/hr 12/11/19 21:00 12/15/19 09:20 IVPB 50 mls Q12HR JOSSY Administration Vancomycin HCl 1.25 gm/ Sodium 250 mls @ 166.667 mls/hr 12/12/19 14:00 12/14/19 14:07 Chloride IVPB 250 mls 1400 JOSSY Administration Insulin Human Lispro 0 units 11/24/19 10:33 12/14/19 16:16 Humalog SC 4 unit .MODERATE SLIDING SC PRN Administration Moderate Correctional Scale Insulin Human NPH 30 unit 11/28/19 09:00 12/15/19 08:55 Humulin N SC 30 unit Q12HR JOSSY Administration Isosorbide Dinitrate 20 mg 12/10/19 14:00 12/15/19 06:08 Isosorbide Dinitrate 20 Mg Tab PO 20 mg Q8H JOSSY Administration Labetalol HCl 20 mg 12/01/19 19:47 12/10/19 02:11 Labetalol Hcl 100 Mg/20 Ml Vial IVPB 20 mg Q2H PRN Administration SBP > 180 Labetalol HCl 200 mg 12/10/19 14:00 12/15/19 06:08 Labetalol 100 Mg Tab PO 200 mg Q8HR JOSSY Administration Levothyroxine Sodium 100 mcg 11/22/19 06:00 12/15/19 06:08 Synthroid PO 100 mcg 0600 JOSSY Administration Lorazepam 2 mg 12/06/19 09:00 12/13/19 03:54 Lorazepam 2 Mg/Ml Vial SLOW IVP 01/05/20 09:00 2 mg Q1H PRN Administration Breakthrough agitation Methylprednisolone Sodium Succinate 80 mg 11/24/19 21:00 12/15/19 08:49 Solu-Medrol IVP 80 mg Q12HR JOSSY Administration Morphine Sulfate 2 mg 12/06/19 09:00 12/14/19 13:29 Morphine 2 Mg/Ml Vial SLOW IVP 01/05/20 09:00 2 mg Q1H PRN Administration Breakthrough Pain/Agitation Olanzapine 10 mg 11/23/19 21:00 12/14/19 21:49 Zyprexa PO 10 mg HS JOSSY Administration Pantoprazole Sodium 40 mg 12/03/19 21:00 12/15/19 08:48 Pantoprazole 40 Mg Vial IVP 40 mg Q12HR JOSSY Administration Propofol 1,000 mg 12/06/19 09:00 12/10/19 01:50 Propofol 1,000 Mg/100 Ml Vial IV 01/05/20 09:00 1,000 mg INF PRN Administration TO ACHIEVE GOAL RASS Protocol Sodium Bicarbonate 650 mg 11/30/19 15:00 12/14/19 21:49 Sodium Bicarbonate Tab 325 Mg Tab PO 650 mg TID JOSSY Administration Sodium Chloride 10 ml 11/25/19 09:00 12/15/19 08:48 Flush - Normal Saline IVF 10 ml Q12HR JOSSY Administration Spironolactone 100 mg 12/02/19 09:00 12/15/19 08:48 Spironolactone 100 Mg Tab PO 100 mg DAILY JOSSY Administration Vecuronium [place] 10 mg 12/06/19 10:41 12/06/19 22:14 Vecuronium 10 Mg Vial IV 10 mg Q1H PRN Administration AGITATION - Exam General - other findings: Sleepy. wakes up with stimulation. ENT: normocephalic atraumatic Neck - other findings: Tracheostomy noted Respiratory - other findings: Ventilator transmitted sound noted Cardiovascular: RRR Gastrointestinal: soft, non-distended, normal bowel sounds Extremities: no edema Neurological - other findings: lethargic. Wakes up with stimulation but doesnt seem to regard Nephrology Results - Labs Result Diagrams: 12/15/19 04:25 12/15/19 04:25 Lab results: WBC 13.4 thou/uL (4.8-10.8) H 12/15/19 04:25 Hgb 11.5 g/dL (12.0-16.0) L 12/15/19 04:25 Hct 35.0 % (36.0-47.0) L 12/15/19 04:25 MCV 99.2 fL (78.0-98.0) H 12/15/19 04:25 Plt Count 447 thou/uL (130-400) H 12/15/19 04:25 Neutrophils % 87.4 % (42.0-75.0) H 11/21/19 01:12 Band Neuts % (Manual) 12 % (5-11) H 12/15/19 04:25 ABG pH 7.44 (7.35-7.45) 12/13/19 07:45 ABG pCO2 33.9 mmHg (35.0-45.0) L 12/13/19 07:45 ABG pO2 59.0 mmHg (> 80.0) L* 12/13/19 07:45 Sodium 152 mmol/L (136-145) H 12/15/19 04:25 Potassium 4.1 mmol/L (3.5-5.1) 12/15/19 04:25 Chloride 114 mmol/L (98-107) H 12/15/19 04:25 Carbon Dioxide 25 mmol/L (23-31) 12/15/19 04:25 BUN 90 mg/dL (9.8-20.1) H 12/15/19 04:25 Creatinine 1.34 mg/dL (0.6-1.1) H 12/15/19 04:25 Glucose 158 mg/dL (80-115) H 12/15/19 04:25 Lactic Acid 1.9 mmol/L (0.5-2.2) 11/21/19 01:12 Calcium 10.5 mg/dL (7.8-10.44) H 12/15/19 04:25 Total Bilirubin 0.4 mg/dL (0.2-1.2) 12/15/19 04:25 AST 17 U/L (5-34) 12/15/19 04:25 ALT 9 U/L (8-55) 12/15/19 04:25 Alkaline Phosphatase 146 U/L (40-110) H 12/15/19 04:25 Creatine Kinase 191 U/L (29-168) H 11/21/19 02:08 Troponin I 0.013 ng/mL (< 0.028) 11/21/19 01:12 C-Reactive Protein 9.33 mg/dL (= or < 0.5) H 12/10/19 07:05 B-Natriuretic Peptide 56.8 pg/mL (0-100) 11/21/19 01:12 Serum Total Protein 6.9 g/dL (6.0-8.3) 12/15/19 04:25 Albumin 3.2 g/dL (3.4-4.8) L 12/15/19 04:25 Urine Ketones Negative mg/dL (Negative) 12/02/19 14:20 Urine Blood Negative (Negative) 12/02/19 14:20 Urine Nitrite Negative (Negative) 12/02/19 14:20 Ur Leukocyte Esterase Negative Sarahy/uL (Negative) 12/02/19 14:20 Urine RBC 0-3 HPF (0-3) 12/02/19 14:20 Urine WBC 0-3 HPF (0-3) 12/02/19 14:20 Ur Squamous Epith Cells 0-3 HPF (0-3) 12/02/19 14:20 Urine Bacteria None Seen HPF (None Seen) 12/02/19 14:20 Sodium 152 mmol/L (136-145) H 12/15/19 04:25 Potassium 4.1 mmol/L (3.5-5.1) 12/15/19 04:25 Chloride 114 mmol/L (98-107) H 12/15/19 04:25 Carbon Dioxide 25 mmol/L (23-31) 12/15/19 04:25 Anion Gap 17 mmol/L (10-20) 12/15/19 04:25 BUN 90 mg/dL (9.8-20.1) H 12/15/19 04:25 Creatinine 1.34 mg/dL (0.6-1.1) H 12/15/19 04:25 Glucose 158 mg/dL (80-115) H 12/15/19 04:25 Calcium 10.5 mg/dL (7.8-10.44) H 12/15/19 04:25 Phosphorus 3.9 mg/dL (2.3-4.7) 12/06/19 03:35 Magnesium 1.8 mg/dL (1.6-2.6) 12/06/19 03:35 Albumin 3.2 g/dL (3.4-4.8) L 12/15/19 04:25 Nephrology AP PN - Plan ASSESSMENT: Hypernatremia: Due to dehydration with free water deficit. Tube feeding was held yesterday Acute kidney injury due to hemodynamic factors. Creat is better than recent baseline. Most likely due to decreased muscle mass Hypertension. BP control better. Chronic kidney disease stage 3. Fluid overload. Resolved. Hypoalbuminemia. Improved Metabolic acidosis. Improved with alkali therapy Primary hyperaldosteronism, on spironolactone. Septic shock, resolved. Staphylococcus bacteremia. Acute respiratory failure on the vent. Covid with possible superimposed bacterial pneumonia. S/p Tracheostomy. COVID pneumonia. Multifocal pneumonia. Right-sided pneumothorax. Anemia: Due to acute illness Presumed fungemia given positive blood culture with yeast. Functional quadriparesis. Encephalopathy: multifactorial. PLAN: Restart free water flushes. Restart tube feeding once cleared by surgery. Follow sodium level. Continue current antihypertensives with holding parameters Continue spironolactone and monitor serum potassium. Continue oral sodium bicarbonate. Antimicrobial as per ID. Respiratory failure treatment as per [employer].
[2019-12-15] MEDS: Sodium Bicarbonate Tab 325 MG TAB PO SCH ×3 (13:55→20:07)
[2019-12-15] MEDS: Vancomycin HCl 1.25 GM in Sodium Chloride 0.9% 250 ML 250 ML IVPB SCH (13:56)
--- NOTE | 2019-12-15 15:45 | PDOC.HOSPP ---
- Subjective Encounter Date: 12/15/19 Encounter Time: 11:00 Subjective: Patient was seen and examined in bed. She was on vent support and minimally responsive. Patient was not following commands - Objective Vital Signs & Weight: Vital Signs (12 hours) Temp Pulse Pulse Pulse Resp BP BP 12/15/19 14:51 94 12/15/19 14:00 18 12/15/19 13:55 83 12/15/19 13:54 83 12/15/19 13:29 83 12/15/19 12:00 99.0 F 12/15/19 11:36 22 H 12/15/19 10:29 97 12/15/19 10:00 13 12/15/19 09:07 121 H 122 H 163/101 H 12/15/19 08:00 99.4 F 15 12/15/19 07:33 79 12/15/19 06:08 75 143/92 H 12/15/19 06:00 20 12/15/19 04:00 99.3 F 19 BP Pulse Ox Pulse Ox Pulse Ox 12/15/19 14:51 12/15/19 14:00 12/15/19 13:55 12/15/19 13:54 12/15/19 13:29 12/15/19 12:00 12/15/19 11:36 12/15/19 10:29 12/15/19 10:00 12/15/19 09:07 162/103 H 97 98 12/15/19 08:00 99 12/15/19 07:33 12/15/19 06:08 12/15/19 06:00 12/15/19 04:00 Weight Admit Weight 197 lb Weight 183 lb 3.266 oz Most Recent Monitor Data Heart Rate from ECG 87 NIBP 125/78 NIBP BP-Mean 93 Respiration from ECG 18 SpO2 95 I&O: 12/14/19 12/15/19 12/16/19 06:59 06:59 06:59 Intake Total 2320 1246.5 720 Output Total 1924 1770 785 Balance 396 -523.5 -65 Result Diagrams: 12/15/19 04:25 12/15/19 04:25 Additional Labs: Accuchecks 12/15/19 12/14/19 09:03 16:20 POC Glucose 133 H 204 H Hospitalist ROS - Medication Medications: Active Medications Generic Name Dose Route Start Last Admin Trade Name Freq PRN Reason Stop Dose Admin Acetaminophen 650 mg 11/21/19 05:39 11/21/19 13:23 Tylenol MD 650 mg Q6H PRN Administration Fever > 101 or Mild Pain Acetaminophen 650 mg 11/24/19 16:43 12/12/19 13:46 Tylenol Elixir PER TUBE 650 mg Q6H PRN Administration Fever > 100.3 Amlodipine Besylate 10 mg 12/06/19 21:00 12/14/19 21:49 Amlodipine 10 Mg Tab PO 10 mg 2100 JOSSY Administration Ascorbic Acid 1,000 mg 11/25/19 09:00 12/15/19 08:47 Vitamin C PO 1,000 mg DAILY JOSSY Administration Cholecalciferol 400 units 11/27/19 09:00 12/15/19 08:49 Vitamin D PER TUBE 400 units DAILY JOSSY Administration Clonidine 0.3 mg 11/23/19 13:00 12/14/19 13:38 Rhtufkso-Fpf-0 TD 0.3 mg Q7D JOSSY Administration Dextrose/Water 25 gm 11/21/19 04:06 11/21/19 04:21 Dextrose 50% SLOW IVP 25 gm PRN PRN Administration Hypoglycemia Fluoxetine HCl 60 mg 11/22/19 09:00 12/15/19 08:48 Prozac PO 60 mg DAILY JOSSY Administration Gabapentin 600 mg 11/21/19 15:00 12/15/19 13:54 Neurontin PO 600 mg TID JOSSY Administration Hydralazine HCl 100 mg 12/06/19 14:00 12/15/19 13:54 Hydralazine 25 Mg Tab PO 100 mg Q8H JOSSY Administration Nicardipine HCl 50 mg/ Sodium 250 mls @ 0 mls/hr 11/24/19 09:45 12/04/19 08:54 Chloride IV 250 mls INF JOSSY Administration Protocol As Directed Fluconazole/Sodium Chloride 100 mls @ 100 mls/hr 12/06/19 09:00 12/15/19 09:22 200 mg/ Device IVPB 100 mls DAILY JOSSY Administration Dexmedetomidine HCl 400 mcg/ 100 mls @ 0 mls/hr 12/10/19 15:00 12/14/19 06:18 Sodium Chloride IVPB 100 mls INF JOSSY Administration Protocol Per Protocol Meropenem 1 gm/ Device 50 mls @ 100 mls/hr 12/11/19 21:00 12/15/19 09:20 IVPB 50 mls Q12HR JOSSY Administration Vancomycin HCl 1.25 gm/ Sodium 250 mls @ 166.667 mls/hr 12/12/19 14:00 12/15/19 13:56 Chloride IVPB 250 mls 1400 JOSSY Administration Insulin Human Lispro 0 units 11/24/19 10:33 12/14/19 16:16 Humalog SC 4 unit .MODERATE SLIDING SC PRN Administration Moderate Correctional Scale Insulin Human NPH 30 unit 11/28/19 09:00 12/15/19 08:55 Humulin N SC 30 unit Q12HR JOSSY Administration Isosorbide Dinitrate 20 mg 12/10/19 14:00 12/15/19 13:58 Isosorbide Dinitrate 20 Mg Tab PO 20 mg Q8H JOSSY Administration Labetalol HCl 20 mg 12/01/19 19:47 12/10/19 02:11 Labetalol Hcl 100 Mg/20 Ml Vial IVPB 20 mg Q2H PRN Administration SBP > 180 Labetalol HCl 200 mg 12/10/19 14:00 12/15/19 13:55 Labetalol 100 Mg Tab PO 200 mg Q8HR JOSSY Administration Levothyroxine Sodium 100 mcg 11/22/19 06:00 12/15/19 06:08 Synthroid PO 100 mcg 0600 JOSSY Administration Lorazepam 2 mg 12/06/19 09:00 12/13/19 03:54 Lorazepam 2 Mg/Ml Vial SLOW IVP 01/05/20 09:00 2 mg Q1H PRN Administration Breakthrough agitation Methylprednisolone Sodium Succinate 80 mg 11/24/19 21:00 12/15/19 08:49 Solu-Medrol IVP 80 mg Q12HR JOSSY Administration Morphine Sulfate 2 mg 12/06/19 09:00 12/14/19 13:29 Morphine 2 Mg/Ml Vial SLOW IVP 01/05/20 09:00 2 mg Q1H PRN Administration Breakthrough Pain/Agitation Olanzapine 10 mg 11/23/19 21:00 12/14/19 21:49 Zyprexa PO 10 mg HS JOSSY Administration Pantoprazole Sodium 40 mg 12/03/19 21:00 12/15/19 08:48 Pantoprazole 40 Mg Vial IVP 40 mg Q12HR JOSSY Administration Propofol 1,000 mg 12/06/19 09:00 12/10/19 01:50 Propofol 1,000 Mg/100 Ml Vial IV 01/05/20 09:00 1,000 mg INF PRN Administration TO ACHIEVE GOAL RASS Protocol Sodium Bicarbonate 650 mg 11/30/19 15:00 12/15/19 13:56 Sodium Bicarbonate Tab 325 Mg Tab PO Not Given TID JOSSY Sodium Chloride 10 ml 11/25/19 09:00 12/15/19 08:48 Flush - Normal Saline IVF 10 ml Q12HR JOSSY Administration Spironolactone 100 mg 12/02/19 09:00 12/15/19 08:48 Spironolactone 100 Mg Tab PO 100 mg DAILY JOSSY Administration Vecuronium [place] 10 mg 12/06/19 10:41 12/06/19 22:14 Vecuronium 10 Mg Vial IV 10 mg Q1H PRN Administration AGITATION - Exam General - other findings: In bed, minimally communicative on vent Heart: RRR, no murmur, no gallops, no rubs Respiratory - other findings: Bilateral coarse breath sounds. Gastrointestinal: soft, non-distended, normal bowel sounds Neurological - other findings: Minimally communicative. Not following commands opens eyes Hosp A/P - Plan 64-year-old female patient admitted in the ICU on ventilator support on account of acute hypoxic respiratory failure with COVID pneumonia. Also has Staphylococcus bacteremia and hypertension. Generally stable. Currently taking of contact COVID precautions. Received a trach and PEG a day ago She is currently in meropenem and vancomycin Physical therapy is following and helping to mobilize. She has not made much improvement so far long-term plan is likely LTAC Acute hypoxic respiratory failure Secondary to COVID pneumonia Continue ventilator management Pulmonology following. Right pneumothorax Chest tubes in place. COVID pneumonia Continues anticoagulation Also on steroids. Continue close monitoring. Staph aureus bacteremia Was on oxacillincefazolinnow discontinued ID follow [place] for ventilator associated infection. Antibiotics been changed to vancomycin and cefepime as per IDnow meropenem and vancomycin Secretions sent for culture. 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 Hypertension Was on nicardipine dripcurrently discontinued Continue blood pressure medications and monitoring. Nephrology following. Hyperglycemiaimproved. Blood sugar controlled on NPH 30 every 12 Moderate correctional sliding scale. Continue close monitoring. Hypothyroidism Continue levothyroxine VTE prophylaxistherapeutic: Lovenox Dispositionpending improvement. Prognosis is generally poor. Planning for trach and PEG next week.
[2019-12-15] MEDS: HumaLOG 300 UNITS/3 ML VIAL SC PRN (17:21)
[2019-12-15] MEDS: OLANZapine 5 MG TAB PO SCH (20:06)
[2019-12-15] MEDS: Amlodipine 10 MG TAB PO SCH (20:07)
[2019-12-15] MEDS ORDERED: Enoxaparin Sodium 80 MG/0.8 ML SYRINGE SC SCH (21:00)
--- NOTE | 2019-12-15 22:56 | PRG ---
DATE OF SERVICE: 12/15/2019 SUBJECTIVE: Ronda Mosqueda is doing well. We will continue to slowly wean from mechanical ventilation. Now, she has trach. OBJECTIVE: Blood pressure is still modestly elevated. Heart rates in the 80s, respiratory rates in the teens. LUNGS: Clear. HEART: Regular rhythm. ABDOMEN: Soft. LABORATORY DATA: White count 13.4, hemoglobin 11.5, platelets 447. Sodium 152, potassium 4.1, chloride 114, bicarb 25, BUN 9, creatinine 1.34. IMPRESSION: 1. COVID pneumonia. 2. Mvqfj-of-ieedsqb kidney disease. 3. mild hyperchloremia. 4. Diabetes. 5. Deconditioning. 6. She is stable to be evaluated for an LTAC in my opinion. Job ID: [id number]
[2019-12-16 04:44] LABS: Hemoglobin 11.3 g/dL (12.0-16.0); Hypochromia SLIGHT = 6-15 cells (100X) (0-5/hpf); Lymphocytes 3 % (21-51); MDiff Complete? YES; Mean Corpuscular HGB CONC 32.9 g/dL (32.0-36.0); Mean Corpuscular Hemoglobin 32.7 pg (27.0-31.0); Mean Corpuscular Volume 99.5 fL (78.0-98.0); Mean Platelet Volume 8.7 fL (7.4-10.4); Metamyelocyte 1 % (0-0); Neutrophil 96 % (42-75); Platelet Count 465 thou/uL (130-400); Platelet Morphology Comment Appears Increased; RBC Distribution Width 15.4 % (11.5-14.5); Red Blood Cell (RBC) Count 3.47 mill/uL (4.20-5.40); White Blood Cell (WBC) Count 14.8 thou/uL (4.8-10.8)
[2019-12-16 04:56] LABS: ALT (SGPT) 11 U/L (8-55); AST (SGOT) 20 U/L (5-34); Albumin 3.1 g/dL (3.4-4.8); Alkaline Phosphatase 134 U/L (40-110); Anion Gap 15 mmol/L (10-20); BUN (Urea Nitrogen) 90 mg/dL (9.8-20.1); Bilirubin, Total 0.4 mg/dL (0.2-1.2); Calc. Creatinine Clearance 58 mL/min (70-130); Calcium 10.5 mg/dL (7.8-10.44); Carbon Dioxide 25 mmol/L (23-31); Chloride 115 mmol/L (98-107); Estimated GFR-MDRD 51; Globulin 3.4 g/dL (2.4-3.5); Glucose 216 mg/dL (80-115); Potassium 3.8 mmol/L (3.5-5.1); Protein, Total 6.5 g/dL (6.0-8.3); Sodium 151 mmol/L (136-145)
[2019-12-16] MEDS: hydrALAZINE 25 MG TAB PO SCH ×2 (05:15→13:23)
[2019-12-16] MEDS: Levothyroxine Sodium 100 MCG TAB PO SCH (05:15)
[2019-12-16] MEDS: Isosorbide Dinitrate 20 MG TAB PO SCH ×2 (05:16→13:27)
[2019-12-16] MEDS: Labetalol 100 MG TAB PO SCH ×2 (05:16→13:23)
[2019-12-16] MEDS: HumaLOG 300 UNITS/3 ML VIAL SC PRN ×3 (05:25→16:57)
--- NOTE | 2019-12-16 07:33 | PRG ---
DATE OF SERVICE: 12/16/2019 SUBJECTIVE: Ronda Mosqueda did well overnight. She awakens. She nods. She weakly follows commands. OBJECTIVE: VITAL SIGNS: Blood pressure 160/100, heart rates in the 90s, and respiratory rates in the 20s. LUNGS: Clear anteriorly. HEART: Regular rhythm. ABDOMEN: Soft. LABORATORY DATA: White count 14.8, hemoglobin 11.3, and platelets 465. Sodium 151, potassium 3.8, chloride 115, bicarb 25, BUN 90, and creatinine 1.27. IMPRESSION: 1. COVID pneumonia, status post trach and PEG. 2. Hypercalcemia, not present on admission. 3. Mild hyperchloremia. 4. Chronic kidney disease. 5. Diabetes. 6. Critical illness myopathy. She can be evaluated for LTAC transfer. She is clinically stable. We will continue with decreased ventilatory support and perhaps T collar trial later today. I would continue with nocturnal ventilation. Job ID: [id number]
--- NOTE | 2019-12-16 08:15 | RAD ---
EXAM: CHEST ONE VIEW HISTORY: Pneumonia. Follow-up evaluation COMPARISON: 12/15/2019 FINDINGS: Tracheostomy device remains in place. One of the right-sided thoracostomy tubes has been removed with a single thoracostomy tube persisting at the right lung base. A right-sided pneumothorax is again seen and slightly increased from the prior exam. Cardiac silhouette is within normal limits for fabian ble technique and patient rotation. There are increased airspace opacities seen in the midlung zones and each lung base overall similar given differences in technique. IMPRESSION: 1. Slight interval increase in right-sided pneumothorax with interval removal of one of the right-bree ed thoracostomy tubes. A single right-sided thoracostomy tube persists. 2. Persistent airspace opacities at the lung bases and midlung zones.
[2019-12-16] MEDS: MEROPENEM 1 GM/50 ML 1 GM in Premix Bag 1 BAG IVPB SCH (09:53)
[2019-12-16] MEDS: Fluconazole In NaCl,Iso-Osm 200 MG in Premix Bag 1 BAG IVPB SCH (09:53)
[2019-12-16] MEDS: Gabapentin 300 MG CAP PO SCH ×2 (09:57→15:06)
[2019-12-16] MEDS: Ascorbic Acid 500 mg Chewable Tablet PO SCH (09:57)
[2019-12-16] MEDS: FLUoxetine HCl 20 MG CAP PO SCH (09:57)
[2019-12-16] MEDS: Spironolactone 100 MG TAB PO SCH (09:58)
[2019-12-16] MEDS: Cholecalciferol (Vitamin D3) 400 UNITS TAB PER TUBE SCH (09:58)
[2019-12-16] MEDS: methylPREDNISolone Sod Succ/PF 125 MG/2 ML VIAL IVP SCH (09:59)
[2019-12-16] MEDS: Pantoprazole 40 MG VIAL IVP SCH (09:59)
[2019-12-16] MEDS: NPH, Human Insulin Isophane 300 UNIT/3 ML VIAL SC SCH (09:59)
--- NOTE | 2019-12-16 10:25 | PDOC.NEPPN ---
- Subjective Encounter Date: 12/16/19 Encounter Time: 10:23 Subjective: Seen. Still non conversational. Opens eye to call and stimulation intermittently. Still on the vent via tracheostomy - Objective Vital Signs & Weight: Vital Signs (12 hours) Temp Pulse Resp BP 12/16/19 07:03 88 12/16/19 06:00 25 H 12/16/19 05:16 99 160/100 H 12/16/19 05:15 95 160/100 H 12/16/19 04:00 100 F H 24 H 12/16/19 02:00 22 H 12/16/19 00:00 99.4 F 25 H Weight Admit Weight 197 lb Weight 183 lb 13.848 oz Most Recent Monitor Data Heart Rate from ECG 101 NIBP 148/102 NIBP BP-Mean 117 Respiration from ECG 23 SpO2 95 I&O: 12/15/19 12/16/19 12/17/19 06:59 06:59 06:59 Intake Total 1246.5 2015 Output Total 1770 1945 Balance -523.5 70 Result Diagrams: 12/16/19 04:00 12/16/19 04:00 Additional Labs: Accuchecks 12/16/19 12/16/19 12/16/19 10:07 04:09 00:11 POC Glucose 205 H 200 H 185 H 12/15/19 12/15/19 12/14/19 20:18 17:08 21:45 POC Glucose 137 H 160 H 191 H Nephrology ROS - Medication Medications: Active Medications Generic Name Dose Route Start Last Admin Trade Name Freq PRN Reason Stop Dose Admin Acetaminophen 650 mg 11/21/19 05:39 11/21/19 13:23 Tylenol CO 650 mg Q6H PRN Administration Fever > 101 or Mild Pain Acetaminophen 650 mg 11/24/19 16:43 12/12/19 13:46 Tylenol Elixir PER TUBE 650 mg Q6H PRN Administration Fever > 100.3 Amlodipine Besylate 10 mg 12/06/19 21:00 12/15/19 20:07 Amlodipine 10 Mg Tab PO 10 mg 2100 JOSSY Administration Ascorbic Acid 1,000 mg 11/25/19 09:00 12/16/19 09:57 Vitamin C PO 1,000 mg DAILY JOSSY Administration Cholecalciferol 400 units 11/27/19 09:00 12/16/19 09:58 Vitamin D PER TUBE 400 units DAILY JOSSY Administration Clonidine 0.3 mg 11/23/19 13:00 12/14/19 13:38 [id number]-[id number]-0 TD 0.3 mg Q7D JOSSY Administration Dextrose/Water 25 gm 11/21/19 04:06 11/21/19 04:21 Dextrose 50% SLOW IVP 25 gm PRN PRN Administration Hypoglycemia Enoxaparin Sodium 80 mg 12/15/19 21:00 12/15/19 20:03 Enoxaparin Sodium 80 Mg/0.8 Ml Syringe SC 80 mg 2100 JOSSY Administration Fluoxetine HCl 60 mg 11/22/19 09:00 12/16/19 09:57 Prozac PO 60 mg DAILY JOSSY Administration Gabapentin 600 mg 11/21/19 15:00 12/16/19 09:57 Neurontin PO 600 mg TID JOSSY Administration Hydralazine HCl 100 mg 12/06/19 14:00 12/16/19 05:15 Hydralazine 25 Mg Tab PO 100 mg Q8H JOSSY Administration Nicardipine HCl 50 mg/ Sodium 250 mls @ 0 mls/hr 11/24/19 09:45 12/04/19 08:54 Chloride IV 250 mls INF JOSSY Administration Protocol As Directed Dexmedetomidine HCl 400 mcg/ 100 mls @ 0 mls/hr 12/10/19 15:00 12/14/19 06:18 Sodium Chloride IVPB 100 mls INF JOSSY Administration Protocol Per Protocol Meropenem 1 gm/ Device 50 mls @ 100 mls/hr 12/11/19 21:00 12/16/19 09:53 IVPB 50 mls Q12HR JOSSY Administration Vancomycin HCl 1.25 gm/ Sodium 250 mls @ 166.667 mls/hr 12/12/19 14:00 12/15/19 13:56 Chloride IVPB 250 mls 1400 JOSSY Administration Insulin Human Lispro 0 units 11/24/19 10:33 12/16/19 10:03 Humalog SC 4 unit .MODERATE SLIDING SC PRN Administration Moderate Correctional Scale Insulin Human NPH 30 unit 11/28/19 09:00 12/16/19 09:59 Humulin N SC 30 unit Q12HR JOSSY Administration Isosorbide Dinitrate 20 mg 12/10/19 14:00 12/16/19 05:16 Isosorbide Dinitrate 20 Mg Tab PO 20 mg Q8H JOSSY Administration Labetalol HCl 20 mg 12/01/19 19:47 12/10/19 02:11 Labetalol Hcl 100 Mg/20 Ml Vial IVPB 20 mg Q2H PRN Administration SBP > 180 Labetalol HCl 200 mg 12/10/19 14:00 12/16/19 05:16 Labetalol 100 Mg Tab PO 200 mg Q8HR JOSSY Administration Levothyroxine Sodium 100 mcg 11/22/19 06:00 12/16/19 05:15 Synthroid PO 100 mcg 0600 JOSSY Administration Methylprednisolone Sodium Succinate 80 mg 11/24/19 21:00 12/16/19 09:59 Solu-Medrol IVP 80 mg Q12HR JOSSY Administration Olanzapine 10 mg 11/23/19 21:00 12/15/19 20:06 Zyprexa PO 10 mg HS JOSSY Administration Pantoprazole Sodium 40 mg 12/03/19 21:00 12/16/19 09:59 Pantoprazole 40 Mg Vial IVP 40 mg Q12HR JOSSY Administration Propofol 1,000 mg 12/06/19 09:00 12/10/19 01:50 Propofol 1,000 Mg/100 Ml Vial IV 01/05/20 09:00 1,000 mg INF PRN Administration TO ACHIEVE GOAL RASS Protocol Sodium Bicarbonate 650 mg 11/30/19 15:00 12/15/19 20:07 Sodium Bicarbonate Tab 325 Mg Tab PO 650 mg TID JOSSY Administration Sodium Chloride 10 ml 11/25/19 09:00 12/16/19 10:02 Flush - Normal Saline IVF 10 ml Q12HR JOSSY Administration Spironolactone 100 mg 12/02/19 09:00 12/16/19 09:58 Spironolactone 100 Mg Tab PO 100 mg DAILY JOSSY Administration Vecuronium Almyra 10 mg 12/06/19 10:41 12/06/19 22:14 Vecuronium 10 Mg Vial IV 10 mg Q1H PRN Administration AGITATION - Exam General - other findings: lethargic. ENT: normocephalic atraumatic Neck - other findings: Tracheostomy in place Respiratory - other findings: Ventilator transmitted sound noted. Right chest tube noted Cardiovascular: RRR Gastrointestinal: soft, non-distended, normal bowel sounds Gastrointestinal - other findings: Quevedo catheter in place Extremities: no edema Neurological - other findings: Lethargic. opens eye to call/stimulation intermittently Nephrology Results - Labs Result Diagrams: 12/16/19 04:00 12/16/19 04:00 Lab results: WBC 14.8 thou/uL (4.8-10.8) H 12/16/19 04:00 Hgb 11.3 g/dL (12.0-16.0) L 12/16/19 04:00 Hct 34.5 % (36.0-47.0) L 12/16/19 04:00 MCV 99.5 fL (78.0-98.0) H 12/16/19 04:00 Plt Count 465 thou/uL (130-400) H 12/16/19 04:00 Neutrophils % 87.4 % (42.0-75.0) H 11/21/19 01:12 Band Neuts % (Manual) 12 % (5-11) H 12/15/19 04:25 ABG pH 7.44 (7.35-7.45) 12/13/19 07:45 ABG pCO2 33.9 mmHg (35.0-45.0) L 12/13/19 07:45 ABG pO2 59.0 mmHg (> 80.0) L* 12/13/19 07:45 Sodium 151 mmol/L (136-145) H 12/16/19 04:00 Potassium 3.8 mmol/L (3.5-5.1) 12/16/19 04:00 Chloride 115 mmol/L (98-107) H 12/16/19 04:00 Carbon Dioxide 25 mmol/L (23-31) 12/16/19 04:00 BUN 90 mg/dL (9.8-20.1) H 12/16/19 04:00 Creatinine 1.27 mg/dL (0.6-1.1) H 12/16/19 04:00 Glucose 216 mg/dL (80-115) H 12/16/19 04:00 Lactic Acid 1.9 mmol/L (0.5-2.2) 11/21/19 01:12 Calcium 10.5 mg/dL (7.8-10.44) H 12/16/19 04:00 Total Bilirubin 0.4 mg/dL (0.2-1.2) 12/16/19 04:00 AST 20 U/L (5-34) 12/16/19 04:00 ALT 11 U/L (8-55) 12/16/19 04:00 Alkaline Phosphatase 134 U/L (40-110) H 12/16/19 04:00 Creatine Kinase 191 U/L (29-168) H 11/21/19 02:08 Troponin I 0.013 ng/mL (< 0.028) 11/21/19 01:12 C-Reactive Protein 9.33 mg/dL (= or < 0.5) H 12/10/19 07:05 B-Natriuretic Peptide 56.8 pg/mL (0-100) 11/21/19 01:12 Serum Total Protein 6.5 g/dL (6.0-8.3) 12/16/19 04:00 Albumin 3.1 g/dL (3.4-4.8) L 12/16/19 04:00 Urine Ketones Negative mg/dL (Negative) 12/02/19 14:20 Urine Blood Negative (Negative) 12/02/19 14:20 Urine Nitrite Negative (Negative) 12/02/19 14:20 Ur Leukocyte Esterase Negative Sarahy/uL (Negative) 12/02/19 14:20 Urine RBC 0-3 HPF (0-3) 12/02/19 14:20 Urine WBC 0-3 HPF (0-3) 12/02/19 14:20 Ur Squamous Epith Cells 0-3 HPF (0-3) 12/02/19 14:20 Urine Bacteria None Seen HPF (None Seen) 12/02/19 14:20 Sodium 151 mmol/L (136-145) H 12/16/19 04:00 Potassium 3.8 mmol/L (3.5-5.1) 12/16/19 04:00 Chloride 115 mmol/L (98-107) H 12/16/19 04:00 Carbon Dioxide 25 mmol/L (23-31) 12/16/19 04:00 Anion Gap 15 mmol/L (10-20) 12/16/19 04:00 BUN 90 mg/dL (9.8-20.1) H 12/16/19 04:00 Creatinine 1.27 mg/dL (0.6-1.1) H 12/16/19 04:00 Glucose 216 mg/dL (80-115) H 12/16/19 04:00 Calcium 10.5 mg/dL (7.8-10.44) H 12/16/19 04:00 Phosphorus 3.9 mg/dL (2.3-4.7) 12/06/19 03:35 Magnesium 1.8 mg/dL (1.6-2.6) 12/06/19 03:35 Albumin 3.1 g/dL (3.4-4.8) L 12/16/19 04:00 Nephrology AP PN - Plan ASSESSMENT: Hypernatremia: Due to free water deficit. Acute kidney injury due to hemodynamic factors. Creat is better than recent baseline. Most likely due to decreased muscle mass Hypertension. BP control better. Chronic kidney disease stage 3. Fluid overload. Resolved. Hypoalbuminemia. Improved Metabolic acidosis. Improved with alkali therapy Primary hyperaldosteronism, on spironolactone. Septic shock, resolved. Staphylococcus bacteremia. Acute respiratory failure on the vent. Covid with possible superimposed bacterial pneumonia. S/p Tracheostomy. COVID pneumonia. Multifocal pneumonia. Right-sided pneumothorax. Anemia: Due to acute illness Presumed fungemia given positive blood culture with yeast. Functional quadriparesis. Encephalopathy: multifactorial. PLAN: Increase free water flushes to 200cc every 4 hors. Follow sodium level. Continue current antihypertensives with holding parameters Continue spironolactone and monitor serum potassium. Continue oral sodium bicarbonate. Antimicrobial as per ID. Respiratory failure treatment as per [employer]. Continue other supportive care
[2019-12-16] MEDS: Sodium Bicarbonate Tab 325 MG TAB PO SCH ×2 (11:52→15:06)
[2019-12-16] MEDS: Vancomycin HCl 1.25 GM in Sodium Chloride 0.9% 250 ML 250 ML IVPB SCH (13:22)
[2019-12-16] MEDS: Labetalol HCl 100 MG/20 ML VIAL IVPB PRN (13:35)
[2019-12-16 13:56] LABS: Vancomycin, Trough 34.4 ug/mL
[2019-12-16 15:10] VITALS: BP 170/115
[2019-12-16 15:57] VITALS: BMI 33.6
[2019-12-16] MEDS ORDERED: CEFAZOLIN 2 GM in Premix Bag 1 BAG IVPB SCH (16:00)
[2019-12-16 17:39] VITALS: TEMP 98.6
[2019-12-17] MEDS ORDERED: Vancomycin HCl 1.25 GM in Sodium Chloride 0.9% 250 ML 250 ML IVPB SCH (14:00)
--- NOTE | 2019-12-19 08:27 | DIS ---
DATE OF ADMISSION: 11/21/2019 DATE OF DISCHARGE: 12/16/2019 DISCHARGE DIAGNOSES: 1. COVID pneumonia. 2. Chronic kidney disease. 3. Diabetes mellitus. 4. Critical illness myopathy. 5. Hypercalcemia. BRIEF HOSPITAL COURSE: This is a 64-year-old female patient who was admitted on account of COVID pneumonia. She has a history of diabetes mellitus, Crohn's disease previously on TNF-alpha inhibitor. She was brought into the emergency room on the day of admission in account of respiratory distress and she was positive for COVID two days prior to presentation at [facility]. She was intubated and mechanically ventilated and managed in the ICU. She was also managed for sepsis with her blood cultures eventually growing methicillin-susceptible Staphylococcus aureus. She had a port which was concerning to be the source of bacteremia and so this was removed during admission. Infectious Disease and Pulmonology were on board for management. She had CKD with acute kidney injury and thus Nephrology was also consulted to help manage her renal disease. She was in the hospital for a long period of time and therefore developed some ICU associated myopathy, thus Physical Therapy was consulted to come help manage myopathy. She was eventually converted from endotracheal intubation to tracheostomy and PEG tube after a long stay in the ICU. She eventually was relatively stable when the decision was made to transition her to LTAC for further care until she is able to come off the respirator. PHYSICAL EXAMINATION: GENERAL: The patient is in bed, minimally responsive, on ventilator support through tracheostomy. RESPIRATORY SYSTEM: Coarse breath sounds bilaterally. CARDIOVASCULAR SYSTEM: S1 and S2 present and normal. No murmurs, gallops, or rubs. ABDOMEN: Soft. No organomegaly. Bowel sounds present. PEG tube in place. EXTREMITIES: Trace bilateral pitting pedal edema. CONSULTATIONS: 1. Pulmonology, Dr. Andrade. 2. Infectious Disease, Dr. Mcdonald. 3. Nephrology, Dr. Prabhakar. DISCHARGE CONDITION: Critical on ventilator support. Job ID: [id number] [facility]
== END 2019-12-16 17:35 | DRG 4 ==
LOC: ERS 00:28 → CCU 02:15
PROVIDERS: ADMIT Internal Medicine; ATTEND Internal Medicine
PROC: 5A1955Z Respiratory Ventilation, Greater than 96 Consecutive Hours (ICD-10-PCS; 2019-11-21)
PROC: 0BH17EZ Insertion of Endotracheal Airway into Trachea, Via Natural or Artificial Opening (ICD-10-PCS; 2019-11-21)
PROC: 8E0ZXY6 Isolation (ICD-10-PCS; 2019-11-21)
PROC: XW13325 Transfusion of Convalescent Plasma (Nonautologous) into Peripheral Vein, Percutaneous Approach, New Technology Group 5 (ICD-10-PCS; 2019-11-25)
PROC: 0W9930Z Drainage of Right Pleural Cavity with Drainage Device, Percutaneous Approach (ICD-10-PCS; 2019-11-26)
PROC: 0WP930Z Removal of Drainage Device from Right Pleural Cavity, Percutaneous Approach (ICD-10-PCS; 2019-11-27)
PROC: 0JPT0WZ Removal of Totally Implantable Vascular Access Device from Trunk Subcutaneous Tissue and Fascia, Open Approach (ICD-10-PCS; 2019-11-27)
PROC: 0B113F4 Bypass Trachea to Cutaneous with Tracheostomy Device, Percutaneous Approach (ICD-10-PCS; principal; 2019-12-14)
PROC: 0DH63UZ Insertion of Feeding Device into Stomach, Percutaneous Approach (ICD-10-PCS; 2019-12-14)
DX: A41.51 Sepsis due to Escherichia coli [E. coli] (principal); U07.1 COVID-19; J96.01 Acute respiratory failure with hypoxia; J12.89 Other viral pneumonia; R65.21 Severe sepsis with septic shock; G93.41 Metabolic encephalopathy; K50.90 Crohn's disease, unspecified, without complications; J44.1 Chronic obstructive pulmonary disease with (acute) exacerbation; I50.32 Chronic diastolic (congestive) heart failure; E87.2 Acidosis; N17.9 Acute kidney failure, unspecified; I13.0 Hypertensive heart and chronic kidney disease with heart failure and stage 1 through stage 4 chronic kidney disease, or unspecified chronic kidney disease; J44.0 Chronic obstructive pulmonary disease with (acute) lower respiratory infection; N18.4 Chronic kidney disease, stage 4 (severe); J93.83 Other pneumothorax; E87.0 Hyperosmolality and hypernatremia; E46 Unspecified protein-calorie malnutrition; Z99.11 Dependence on respirator [ventilator] status; Z51.5 Encounter for palliative care; G47.33 Obstructive sleep apnea (adult) (pediatric); K21.9 Gastro-esophageal reflux disease without esophagitis; F41.9 Anxiety disorder, unspecified; F31.9 Bipolar disorder, unspecified; F17.210 Nicotine dependence, cigarettes, uncomplicated; E87.5 Hyperkalemia; E26.09 Other primary hyperaldosteronism; E11.22 Type 2 diabetes mellitus with diabetic chronic kidney disease; A41.01 Sepsis due to Methicillin susceptible Staphylococcus aureus; E11.65 Type 2 diabetes mellitus with hyperglycemia; E26.9 Hyperaldosteronism, unspecified; I16.0 Hypertensive urgency; E03.9 Hypothyroidism, unspecified; D63.1 Anemia in chronic kidney disease; E87.70 Fluid overload, unspecified; E87.8 Other disorders of electrolyte and fluid balance, not elsewhere classified; E83.52 Hypercalcemia; Z79.4 Long term (current) use of insulin; Z79.899 Other long term (current) drug therapy; Z90.710 Acquired absence of both cervix and uterus; Z90.49 Acquired absence of other specified parts of digestive tract; Z68.33 Body mass index [BMI] 33.0-33.9, adult
CPT/HCPCS: 31500; 36415; 36416; 36430; 36556; 36600; 51702; 70450; 71045; 80053; 80202; 81001; 81003; 81015; 82274; 82550; 82728; 82805; 83540; 83550; 83605; 83735; 83880; 84100; 84145; 84484; 85007; 85025; 85027; 85379; 85610; 85730; 86140; 86850; 86900; 86901; 87040; 87070; 87077; 87086; 87106; 87149; 87186; 87205; 87449; 93005; 94002; 94003; 94640; 96365; 96366; 96367; 96376; 99292; C9113; J0360; J0690; J0692; J1100; J1450; J1644; J1650; J1720; J1815; J1940; J2001; J2060; J2185; J2250; J2270; J2700; J2704; J2930; J3010; J3370; J3490; J7050; J7070; P9017; P9047; S0028; U0002